=== PATIENT | female | born 1955 | race Caucasian/White ===

== ENCOUNTER 2019-10-22 13:10 | Outpatient (CLI) | payer MEDICARE, SELFPAY | END 2019-10-22 13:11 | disposition home or self-care (01) | LOC: WOUND 13:18 | PROVIDERS: Family Provider Family Medicine; Visit Provider Emergency Medicine | DX: L98.491 Non-pressure chronic ulcer of skin of other sites limited to breakdown of skin (principal) | CPT/HCPCS: 11042; 11045; 87070; 87077; 87176; 87186; 87205; G0463 ==

== ENCOUNTER → 2019-10-26 15:47 | Outpatient (BNVA) | payer MEDICARE, SELFPAY | PROVIDERS: Family Provider Family Medicine; Referring Provider Emergency Medicine; Visit Provider Dermatology | DX: D48.9 Neoplasm of uncertain behavior, unspecified (principal); L08.1 Erythrasma | CPT/HCPCS: 99203; 99204 ==

== ENCOUNTER → 2019-11-05 08:53 | Outpatient (BNVA) | payer MEDICARE, SELFPAY | PROVIDERS: Family Provider Family Medicine; Visit Provider Dermatology | DX: D48.9 Neoplasm of uncertain behavior, unspecified (principal); L08.1 Erythrasma | CPT/HCPCS: 99213 ==

== ENCOUNTER → 2019-12-03 09:03 | Outpatient (BNVA) | payer MEDICARE, SELFPAY | PROVIDERS: Family Provider Family Medicine; Visit Provider Dermatology | DX: L08.1 Erythrasma (principal); R21 Rash and other nonspecific skin eruption | CPT/HCPCS: 11104; 88304; 99213 ==

== ENCOUNTER → 2019-12-15 10:26 | Outpatient (BNVA) | payer MEDICARE, SELFPAY | PROVIDERS: Family Provider Family Medicine; Visit Provider Dermatology | DX: L57.0 Actinic keratosis (principal); L24.9 Irritant contact dermatitis, unspecified cause | CPT/HCPCS: 17000; 99213 ==

== ENCOUNTER 2020-04-13 10:42 | Outpatient (CLI) | payer MEDICARE, SELFPAY ==
--- NOTE | 2020-04-13 10:52 | MM_ITS ---
WS: [id number] BILATERAL SCREENING DIGITAL MAMMOGRAM WITH CAD HISTORY: SCREENING COMPARISON: 05/11/2016 and 04/24/2016 Bilateral CC and MLO views submitted. Computer aided detection analyzed. Breast composition: There are scattered areas of fibroglandular density. No suspicious masses, microc alcifications or architectural distortion. Benign calcifications in each breast. MM/[place] [id number] IMPRESSION: BI-RADS: 2-Benign FOLLOW UP: 1 Year Follow-up
== END 2020-04-13 10:43 | disposition home or self-care (01) ==
LOC: RADSHAW 10:51
PROVIDERS: PCP Family Medicine; Visit Provider Family Medicine
DX: Z12.31 Encounter for screening mammogram for malignant neoplasm of breast (principal)
CPT/HCPCS: 77067

== ENCOUNTER 2021-04-17 13:22 | Outpatient (CLI) | payer SELFPAY ==
[2021-04-17 13:41] VITALS: BMI 46.4
[2021-04-17 15:25] VITALS: BP 161/79; PULSE 74; RESP 20; TEMP 36.2; O2SAT 96
== END 2021-04-17 13:23 | disposition home or self-care (01) ==
PROVIDERS: PCP Family Medicine; Visit Provider Nurse Practitioner Family
DX: U07.1 COVID-19 (principal)
CPT/HCPCS: 96365

== ENCOUNTER 2021-07-26 13:48 | Outpatient (CLI) | payer MEDICARE, SELFPAY ==
--- NOTE | 2021-07-26 14:01 | MM_ITS ---
WS: [id number] BILATERAL 3D TOMOSYNTHESIS DIGITAL SCREENING MAMMOGRAPHY WITH CAD CLINICAL INFORMATION: SCREENING HISTORY: Screening mammogram. No current complaints. COMPARISON: April 13, 2020 TECHNIQUE: Bilateral CC and MLO views. FINDINGS: Scattered fibroglandular densities bilaterally. Vascular calcification. Stable intramammary lymph nod e RIGHT breast. Two small ovoid nodules inner LEFT breast measuring 4 to 5 mm new or more prominent c ompared to previous. These may represent small intramammary lymph nodes but indeterminant. Recommend spot compression views and ultrasound for further evaluation. RIGHT breast is unremarkable and unchanged. MM/[place] [id number] IMPRESSION: BI-RADS: 0-Incomplete: Need additional imaging evaluation FOLLOW UP: Need Additional Imaging Recommend LEFT breast spot compression diagnostic mammography and ultrasound.
--- NOTE | 2021-07-26 14:01 | XR_ITS ---
WS: [id number] DEXA (DUAL ENERGY X-RAY ABSORPTIOMETRY) Bone mineral density was performed using a Crew machine. HISTORY: POSTMENOPAUSAL COMPARISON: None available. Lumbar spine BMD (L1-L4): 1.386 g/cm2 T score: 1.7 Z score: 2.2 Total hip BMD: Left: 1.105 g/cm2. T score: 0.8 Z score: 1.3 Right: 1.113 g/cm2. T score: 0.8 Z score: 1.4 10 year probability of a major osteoporotic fracture is 9.4%. XR/XR DEXA axial skeleton* [id number] IMPRESSION: NORMAL BONE MINERAL DENSITY based upon the WHO classification for females.
== END 2021-07-26 13:49 | disposition home or self-care (01) ==
LOC: RAD 13:49
PROVIDERS: PCP Family Medicine; Visit Provider Nurse Practitioner
DX: Z12.31 Encounter for screening mammogram for malignant neoplasm of breast (principal); Z78.0 Asymptomatic menopausal state; Z13.820 Encounter for screening for osteoporosis
CPT/HCPCS: 77063; 77067; 77080

== ENCOUNTER 2021-08-22 08:48 | Outpatient (CLI) | payer MEDICARE, SELFPAY ==
--- NOTE | 2021-08-22 08:52 | MM_ITS ---
WS: [id number] LEFT 3D TOMOSYNTHESIS DIGITAL MAMMOGRAPHY WITH CAD CLINICAL INFORMATION: OVOID NODULE LT BREAST COMPARISON: July 26, 2021 TECHNIQUE: 4 views of the left breast were obtained. FINDINGS: Scattered fibroglandular densities of the left breast. Two small ovoid nodules inner LEFT breast britney uring 4 to 5 mm stable compared to previous. Ultrasound is pending. ULTRASOUND BREAST LEFT TECHNIQUE: Ultrasound left breast focused area of concern. CLINICAL INFORMATION: OVOID NODULE LT BREAST COMPARISON: None. FINDINGS: Ultrasound LEFT breast at the 10 and 11:00 position 2 to 4 cm from the nipple. Tiny slightly complex cyst at the 11:00 position 2 cm from the nipple measuring 2 x 3 mm. Additional slightly lobulated com plex cyst with a single septation at the 10:00 position measuring 5.1 x 3.4 x 6.0 mm. Findings have a benign appearance. No suspicious lesions to target for biopsy. MM/[place] [id number] IMPRESSION: BI-RADS: 2-Benign FOLLOW UP: 1 Year Follow-up Recommend return to annual screening mammography.
== END 2021-08-22 08:49 | disposition home or self-care (01) ==
LOC: RAD 08:50
PROVIDERS: Family Provider Family Medicine; Visit Provider Family Medicine
DX: N63.20 Unspecified lump in the left breast, unspecified quadrant (principal)
CPT/HCPCS: 76642; 77061

== ENCOUNTER 2022-03-15 21:35 | Inpatient (IN) | payer MEDICARE, SELFPAY ==
[2022-03-15 21:35] VITALS: BP 97/55; PULSE 111; RESP 18; TEMP 39.5; O2SAT 97; BMI 44.2
--- NOTE | 2022-03-15 21:38 | CTR_ITS ---
PROCEDURE INFORMATION: Exam: CT Cervical Spine Without Contrast Exam date and time: 03/15/2022 9:51 PM Age: 66 years old Clinical indication: Injury or trauma; Fall; Blunt trauma; Patient HX: Per EMS patient fell at home at 1300 with headstrike. Lethargic with fever. History of lymphoma. TECHNIQUE: Imaging protocol: Computed tomography of the cervical spine without contrast. Radiation optimization: All CT scans at this facility use at least one of these dose optimization techniques: automated exposure control; mA and/or kV adjustment per patient size (includes targeted exams where dose is matched to clinical indication); or iterative reconstruction. COMPARISON: CT head wo con* [id number] 03/15/2022 9:48 PM RADIATION DOSE METRICS: Total DLP (mGy-cm): 211.17 FINDINGS: Bones/joints: No fracture is identified. There is narrowing of the C5-C6 and C6-C7 disc spaces with small anterior and posterior osteophytes. There are hypertrophic degenerative changes in facet joints bilaterally at multiple levels. Lungs: Lung apices are normal. Soft tissues: Prevertebral soft tissues are unremarkable. CT/CT cervical spin wo con* [id number] IMPRESSION: 1. Degenerative changes. 2. No fracture is identified.
--- NOTE | 2022-03-15 21:38 | CTR_ITS ---
PROCEDURE INFORMATION: Exam: CT Head Without Contrast Exam date and time: 03/15/2022 9:48 PM Age: 66 years old Clinical indication: Injury or trauma; Fall; Blunt trauma (contusions or hematomas); Patient HX: Per EMS patient fell at home at 1300 with headstrike. Lethargic with fever. History of lymphoma. TECHNIQUE: Imaging protocol: Computed tomography of the head without contrast. Radiation optimization: All CT scans at this facility use at least one of these dose optimization techniques: automated exposure control; mA and/or kV adjustment per patient size (includes targeted exams where dose is matched to clinical indication); or iterative reconstruction. COMPARISON: No relevant prior studies available. RADIATION DOSE METRICS: Total DLP (mGy-cm): 1123.98 FINDINGS: Limitations: Study is slightly limited by patient motion. Brain: There is mild cortical atrophy. Low-density changes in the white matter are consistent with nonspecific small vessel chronic ischemic change. There is no intracranial mass, hemorrhage or edema. Cerebral ventricles: No ventriculomegaly. Paranasal sinuses: There is a mucous retention cyst in the right maxillary antrum. Mastoid air cells: Visualized mastoid air cells are well aerated. Bones/joints: Unremarkable. No acute fracture. Soft tissues: Unremarkable. CT/CT head wo con* [id number] IMPRESSION: No acute intracranial finding.
--- NOTE | 2022-03-15 21:38 | XRR_ITS ---
PROCEDURE INFORMATION: Exam: XR Chest Exam date and time: 03/15/2022 9:43 PM Age: 66 years old Clinical indication: Fever TECHNIQUE: Imaging protocol: Radiologic exam of the chest. Views: 1 view. COMPARISON: No relevant prior studies available. FINDINGS: Limitations: The study is made with less than full inspiration. Lungs: There are mild atelectatic changes at the lung bases. There is no pulmonary venous congestion. Pleural spaces: Unremarkable. No pleural effusion. No pneumothorax. Heart/Mediastinum: Heart is within normal limits of size. Bones/joints: Unremarkable. XR/XR chest 1V portable [id number] IMPRESSION: Mild basilar atelectasis.
--- NOTE | 2022-03-15 21:54 | ED_ITS ---
HPI - Altered Mental Status General: Chief Complaint: Altered Mental Status Stated Complaint: AMS Time Seen by Provider: 03/15/22 21:36 Source: EMS Mode of arrival: EMS Limitations: altered mental status History of Present Illness: 66-year-old female who had a fall earlier today believe around 1-2 o'clock patient was seen by friends then was normal, checked on her later and she is altered patient here is altered she able to tell me her name but is quite confused is not able answer any questions she is having weakness as well. Patient was febrile with EMS to 103 Review of Systems General: Reports: ROS unobtainable due to mental status Const: Reports: fever(s) PFSH ED PFSH: Medical History Arthritis Diabetes History of nonmelanoma skin cancer Hodgkin lymphoma Lymphoma Thyroid disease Surgical History H/O: hysterectomy Family History Mother Diabetes Other Cancer Social History Smoking and tobacco status: former smoker Alcohol intake: never History of recent travel: No Physical Exam Const: COMMON NORMALS: alert EXAM LIMITATIONS: altered mental status GENERAL APPEARANCE: ill appearing HENMT: COMMON NORMALS: normocephalic and atraumatic HEAD & SCALP: normocephalic and atraumatic Eye: COMMON NORMALS: Equal, round and reactive pupils present and conjunctivae normal CONJUNCTIVA: Yes conjunctivae normal PUPIL: Yes Equal, round and reactive pupils present Neck/C-Spine: COMMON NORMALS: full ROM and supple Chest: COMMONS NORMALS: normal inspection of the chest Resp: EFFORT & INSPECTION: No tachypneic, No respiratory distress and No labored AUSCULTATION: rales Cardio: COMMON NORMALS: regular rate and regular rhythm RATE: regular rate RHYTHM: regular rhythm GI: COMMON NORMALS: Normal to inspection, nondistended, normoactive bowel sounds present and non-tender Back/Pelvis: COMMON NORMALS: thoracic and lumbar spine normal to inspection and no thoracic nor lumbar tenderness Extremity: COMMON NORMALS: normal to inspection Neuro: SENSORIUM/ORIENTATION: Yes alert OTHER: Patient is able to tell me her name she is quite confused and weak Psych: COMMON NORMALS: negative for mental status grossly normal Skin: COMMON NORMALS: no rashes or lesions noted GENERAL SKIN EXAM: no rashes or lesions noted Course Vital Signs: Vital signs: Vital Signs Temperature 103.1 F H 03/15/22 21:35 Pulse Rate 111 H 03/15/22 21:35 Respiratory Rate 18 03/15/22 21:35 Blood Pressure 97/55 03/15/22 21:35 Pulse Oximetry 97 03/15/22 21:35 Oxygen Delivery Me thod 03/15/22 21:35 MDM - Altered Mental Status Medical Decision Making Patient presents originally with fever and altered male status her confusions i mproved now that her fever is improved she able answer my question appropriately she does have a urinary tract infection along with leukocytosis likely causing this fever will start on IV antibiotics I spoke to the hospitalist and will admit. Lab Data 03/15/22 22:07 03/15/22 22:07 Radiology Impressions Cervical Spine CT 03/15/22 21:38 IMPRESSION: 1. Degenerative changes. 2. No fracture is identified. Chest X-Ray 03/15/22 21:38 IMPRESSION: Mild basilar atelectasis. Head CT 03/15/22 21:38 IMPRESSION: No acute intracranial finding. Laboratory Results WBC 24.5 10^3/uL (4.0-10.0) H 03/15/22 22:07 RBC 4.29 10^6/uL (4.1-5.3) 03/15/22 22:07 Hgb 11.0 g/dL (11.5-15.3) L 03/15/22 22:07 Hct 36.1 % (37.0-47.0) L 03/15/22 22:07 MCV 84.1 fl (81-99) 03/15/22 22:07 MCH 25.6 pg (28.0-34.0) L 03/15/22 22:07 MCHC 30.5 g/dL (30.0-36.0) 03/15/22 22:07 RDW 15.3 % (12.1-15.1) H 03/15/22 22:07 Plt Count 312 10^3/cmm (130-400) 03/15/22 22:07 MPV 11.9 fL (7.4-10.4) H 03/15/22 22:07 Neut % (Auto) 58.6 % 03/15/22 22:07 Lymph % (Auto) 8.5 % 03/15/22 22:07 [place] % (Auto) 32.0 % 03/15/22 22:07 Eos % (Auto) 0.0 % 03/15/22 22:07 Baso % (Auto) 0.1 % 03/15/22 22:07 Neut # (Auto) 14.33 10^3/uL (1.8-7.7) H 03/15/22 22:07 Lymph # (Auto) 2.1 10^3/uL (0.8-4.8) 03/15/22 22:07 [place] # (Auto) 7.8 10^3/uL (0.2-0.9) H 03/15/22 22:07 Eos # (Auto) 0.0 10^3/uL (0.0-0.8) 03/15/22 22:07 Baso # (Auto) 0.0 10^3/uL (0.0-0.1) 03/15/22 22:07 Nucleated RBC % (auto) 0 % 03/15/22 22:07 Nucleated RBCs # 0.0 /100WBC 03/15/22 22:07 PT 15.60 SECONDS (12.1-14.9) H 03/15/22 22:07 INR 1.21 (0.8-1.2) H 03/15/22 22:07 Sodium 139 mmol/L (136-145) 03/15/22 22:07 Potassium 4.5 mmol/L (3.5-5.1) 03/15/22 22:07 Chloride 102 mmol/L (98-107) 03/15/22 22:07 Carbon Dioxide 22 mmol/L (22-29) 03/15/22 22:07 Anion Gap 19.5 (5-19) H 03/15/22 22:07 BUN 33 mg/dL (8-23) H 03/15/22 22:07 Creatinine 2.1 mg/dL (0.5-0.9) H 03/15/22 22:07 GFR Calculation 23.4 mL/min (90-130) L 03/15/22 22:07 Glucose 347 mg/dL (65-115) H 03/15/22 22:07 Calculated Osmolality 309 mOsm/kg (285-295) H 03/15/22 22:07 Lactate 2.2 mmol/L (0.5-2.2) 03/15/22 22:07 Calcium 9.1 mg/dL (8.5-10.5) 03/15/22 22:07 Total Bilirubin 0.5 mg/dL (0.15-1.2) 03/15/22 22:07 AST 12 U/L (0-32) 03/15/22 22:07 ALT < 5 U/L (0-33) 03/15/22 22:07 Alkaline Phosphatase 87 U/L (35-105) 03/15/22 22:07 Total Protein 7.9 g/dL (6.6-8.7) 03/15/22 22:07 Albumin 3.5 g/dL (3.5-5.2) 03/15/22 22:07 Globulin 4.4 g/dL (1.3-4.6) 03/15/22 22:07 Lipase 19 U/L (13-60) 03/15/22 22:07 Urine Color Yellow (Yellow) 03/15/22 23:55 Urine Appearance Cloudy (CLEAR) A 03/15/22 23:55 Urine pH 5 (5-7) 03/15/22 23:55 Ur Specific [place] 1.015 (1.005-1.030) 03/15/22 23:55 Urine Protein 1+ (Negative) H 03/15/22 23:55 Urine Glucose (UA) Norm (Normal) 03/15/22 23:55 Urine Ketones Negative (Negative) 03/15/22 23:55 Urine Blood 3+ (Negative) H 03/15/22 23:55 Urine Nitrate Negative (Negative) 03/15/22 23:55 Urine Bilirubin Neg (Negative) 03/15/22 23:55 Urine Urobilinogen Norm mg/dL (Negative) 03/15/22 23:55 Ur Leukocyte Esterase 2+ (Negative) H 03/15/22 23:55 Urine RBC 0-4 /hpf (0-2) H 03/15/22 23:55 Urine WBC Too numerous to cnt /hpf (0-5) H 03/15/22 23:55 Ur Squamous Epith Cells 0-4 /hpf (0-5) H 03/15/22 23:55 Amorphous Sediment Not Reportable 03/15/22 23:55 Urine Bacteria 4+ /hpf (NONE) H 03/15/22 23:55 Influenza Type A Ag negative (Negative) 03/15/22 22:44 Influenza Type B Ag negative (Negative) 03/15/22 22:44 SARS-CoV-2 Ag (Rapid) negative (Negative) 03/15/22 22:44 Discharge Plan Discharge Patient Disposition: Admitted As Inpatient Clinical Impression: Altered mental status, Acute cystitis Condition: Stable Prescriptions: No Action hydrocortisone 2.5 % cream 1 applic TOPICAL BID PRN (Reason: allergic reaction) Qty: 453.6 0RF Rx Instructions: Apply twice daily to affected area and abdominal fold no more than 2 weeks/month levothyroxine [Synthroid] 88 mcg tablet 88 mcg PO DAILY lisinopril 5 mg tablet 5 mg PO DAILY PRN Januvia 100 mg tablet 100 mg PO DAILY ibuprofen 200 mg capsule 200 mg PO Q6H PRN aspirin [Adult Aspirin Regimen] 81 mg tablet,delayed release (DR/EC) 81 mg PO DAILY erythromycin 250 mg tablet 250 mg PO Q6H Qty: 40 0RF glyburide 2.5 mg tablet 2.5 mg PO DAILY Referrals: Celia Louis MD [Primary Care Provider] - Coding Level of Care Code ED Chief Station Engineer for Chg Fwd Exam Comprehensive
[2022-03-15 22:17] LABS: Basophils % 0.1 %; Hematocrit 36.1 % (37.0-47.0); Lymphocytes # 2.1 10^3/uL (0.8-4.8); Lymphocytes % 8.5 %; Mean Corpuscular HGB Conc 30.5 g/dL (30.0-36.0); Mean Corpuscular Hemoglobin 25.6 pg (28.0-34.0); Mean Corpuscular Volume 84.1 fl (81-99); Mean Platelet Volume 11.9 fL (7.4-10.4); Monocytes # 7.8 10^3/uL (0.2-0.9); Neutrophils # 14.33 10^3/uL (1.8-7.7); Neutrophils % 58.6 %; Nucleated Red Blood Cells % 0 %; Platelet Count 312 10^3/cmm (130-400); Red Blood Count 4.29 10^6/uL (4.1-5.3); Red Cell Distribution Width 15.3 % (12.1-15.1); White Blood Count 24.5 10^3/uL (4.0-10.0)
[2022-03-15 22:28] LABS: INR 1.21 (0.8-1.2)
[2022-03-15] MEDS: cefTRIAXone 1,000 MG in sodium chloride 0.9% (plus) 50 ML 100 MG IV (22:35)
[2022-03-15 22:38] LABS: Lactate (Lactic Acid level) 2.2 mmol/L (0.5-2.2)
[2022-03-15] MEDS: acetaminophen 325 mg Tablet 650 MG PO (22:41)
[2022-03-15 22:42] LABS: Alanine Aminotransferase < 5 U/L (0-33); Albumin Level 3.5 g/dL (3.5-5.2); Alkaline Phosphatase 87 U/L (35-105); Anion Gap 19.5 (5-19); Aspartate Amino Transferase 12 U/L (0-32); Blood Urea Nitrogen 33 mg/dL (8-23); Calcium 9.1 mg/dL (8.5-10.5); Carbon Dioxide 22 mmol/L (22-29); Chloride 102 mmol/L (98-107); Globulin 4.4 g/dL (1.3-4.6); Glomerular Filtration Rate 23.4 mL/min (90-130); Glucose 347 mg/dL (65-115); Lipase 19 U/L (13-60); Osmolality Calculated 309 mOsm/kg (285-295); Potassium 4.5 mmol/L (3.5-5.1); Sodium 139 mmol/L (136-145); Total Bilirubin 0.5 mg/dL (0.15-1.2); Total Protein 7.9 g/dL (6.6-8.7)
[2022-03-15] MEDS: sodium chloride 0.9% 1,000 ML 999 ML IV ×2 (22:47→23:52)
[2022-03-15 23:10] LABS: Influenza A by IFA negative (Negative); Influenza B by IFA negative (Negative); SARS Covid-2 Antigen negative (Negative)
[2022-03-15] MEDS: azithromycin 500 MG in sodium chloride 0.9% 250 ML 250 MG IV (23:52)
[2022-03-16] VITALS (8 sets, daily range): BP systolic 103–136; BP diastolic 47–65; PULSE 81–117; RESP 15–21; TEMP 36.9–39.6; O2SAT 90–98
[2022-03-16 00:11] LABS: Add Urine Culture? Yes; Add Urine Microscopic? YES; Bacteria Urine 4+ /hpf; Bilirubin Urine Neg (Negative); Blood Urine 3+ (Negative); Glucose Urine UA Norm (Normal); Ketones Urine Negative (Negative); Leukocyte Esterase Urine 2+ (Negative); Nitrate Urine Negative (Negative); Protein Urine 1+ (Negative); RBC Urine 0-4 /hpf (0-2); Specific Gravity, Urine 1.015 (1.005-1.030); Squamous Epithelial Cell Urine 0-4 /hpf (0-5); Urine Appearance Cloudy (CLEAR); Urine Color Yellow (Yellow); Urobilinogen Urine Norm (Negative); WBC Urine TOO NUMEROUS TO CNT /hpf (0-5); pH Urine 5 (5-7)
--- NOTE | 2022-03-16 02:26 | P.HP_ITS ---
Providers/Chief Complaint Admitting Physician: Anahi Gracia MD Primary Care Provider: Celia Louis MD Chief Complaint: AMS History of Present Illness Macey Brush is a 66 year old female who carries history of lymphoma, arthritis, lives alone presented with chief complaint of confusion and fever. Patient fell today around [address] due to snow. She was brought to the hospital her family deemed her stable. When family checked on her around 6 PM she was not picking up the phone call, her sister went in person to see her, Ms. Brush was very lethargic fatigued and confused. She was laying on a couch. As per the patient she was suffering from viral illness for last 3 days he experienced 1 episode of emesis. He has been experiencing dysuria for urinary f requency. In the ER she has been diagnosed with sepsis related to UTI, her daughter who is in [place] is very concerned if lymphoma has returned I requested CT chest abdomen pelvis she had received 2 L bolus along blood cultures and antibiotics, her septic bolus would require at least 3 L, given additional liter of fluid, lactic acid is high She is getting acidotic I have given her 1 amp of bicarb She is not hypotensive Sister at the bedside Patient is full code, Review of Systems Const: Reports: fever(s) and chills Eyes: Denies: change in vision ENMT: Denies: throat pain Card: Denies: chest pain Resp: Reports: dyspnea GI: Reports: nausea : Reports: flank pain and urinary frequency Musc: Denies: neck pain Skin/Breast: Denies: rash Neuro: Denies: headache(s) Psych: Reports: sleeping more Endo: Denies: polyuria Nito/Lymph: Denies: easy bruising All/Imm: Denies: urticaria Medications/Allergies Home Medications Medication Instructions Recorded Confirmed Last Taken Type aspirin 81 mg tablet,delayed 81 mg PO DAILY 10/26/19 09/05/20 Unknown History release (Adult Aspirin Regimen) erythromycin 250 mg tablet 250 mg PO Q6H #40 tabs 10/26/19 09/05/20 Unknown Rx ibuprofen 200 mg capsule 200 mg PO Q6H PRN 10/26/19 09/05/20 Unknown History levothyroxine 88 mcg tablet 88 mcg PO DAILY 10/26/19 09/05/20 Unknown History (Synthroid) lisinopril 5 mg tablet 5 mg PO DAILY PRN 10/26/19 09/05/20 Unknown History sitagliptin 100 mg tablet (Januvia) 100 mg PO DAILY 10/26/19 09/05/20 Unknown History hydrocortisone 2.5 % topical cream 1 applic topical BID PRN allergic 12/15/19 09/05/20 Unknown Rx reaction #453.6 grams glyburide 2.5 mg tablet 2.5 mg PO DAILY 09/05/20 09/05/20 Unknown History Allergies Allergy/AdvReac Type Severity Reaction Status Date / Time adhesive tape Allergy rash Verified 03/15/22 21:42 ciprofloxacin [From Cipro] Allergy peeling of Verified 03/15/22 21:42 hands and feet latex Allergy ALGY-Rash Verified 03/15/22 21:42 sulfamethoxazole Allergy doesn't Verified 03/15/22 21:42 [From Bactrim] work trimethoprim [From Bactrim] Allergy doesn't Verified 03/15/22 21:42 work tegraderm Allergy rash Uncoded 03/15/22 21:42 PFSH Acute PFSH: Medical History Arthritis Diabetes History of nonmelanoma skin cancer Hodgkin lymphoma Lymphoma Thyroid disease Surgical History H/O: hysterectomy Family History Mother Diabetes Other Cancer Social History Smoking and tobacco status: former smoker Alcohol intake: never History of recent travel: No Vitals/I&O/Wt Last Vital Signs Temp 99.4 F 03/16/22 00:43 Pulse 92 03/16/22 00:43 Resp 16 03/16/22 00:43 BP 128/47 03/16/22 00:43 Pulse Ox 98 03/16/22 00:43 O2 Del Method 03/16/22 02:03 03/15/22 03/15/22 03/16/22 14:59 22:59 06:59 Intake Total 2300 / 2300 Balance 2300 / 2300 Weight last 48 hrs Weight 113.398 kg Physical Exam Narrative: Morbidly obese female Currently laying supine Very fatigued Oriented to time place and person S1, S2 sinus tachycardia Abdomen soft Lower extremity no edema Dry mucous membranes EOMI, PERRLA Nonfocal neuro exam Sister is at the bedside Patient seems very drowsy Sepsis: Is patient septic: Yes Focused sepsis exam performed: Yes Focused sepsis exam: Good capillary refill No skin mottling Signs of dehydration present Metabolic encephalopathy improving Data 03/15/22 22:07 03/15/22 22:07 Micro: Microbiology 03/15/22 22:05 Blood Culture - Preliminary Blood SPECIMEN COLLECTED 03/15/22 22:05 Blood Culture - Preliminary Blood SPECIMEN COLLECTED A&P Assessment and plan (1) Altered mental status: (2) Acute cystitis: (3) Sepsis: (4) Metabolic acidosis: Plan Sepsis related to UTI Rule out pyelonephritis Requested CT abdomen pelvis and chest daughter is concerned that probably her lymphoma has returned that is causing her confusion and worsening of leukocytosis Sepsis criteria met with fever, tachypnea tachycardia high lactic acid, endorgan damage I have given her 3 L of IV fluid as septic bolus Blood cultures taken urine cultures taken Lactic acid is being trended Metabolic encephalopathy related to sepsis and UTI Currently patient is awake and alert, AOx4 GCS 15 Nonfocal neuro exam High anion gap metabolic acidosis due to lactic acidemia I have given a 1 amp of bicarb, started on p.o. bicarb regimen In case of further worsening she might need bicarb drip and ICU transfer History of hypertension: I am holding her lisinopril for now DENNISE related to sepsis rule out obstructive uropathy, pyelonephritis Requested CT scan of abdomen pelvis Consistent carb diet for type 2 diabetes Sliding scale Hypothyroidism continue levothyroxine Full code DVT prophylaxis Heparin We will request records for her lymphoma treatment Attestations Medical Necessity Statement*: Anticipating more than 2 midnights for management of sepsis Time Spent in Patient Care: 40 Coding Level of Care Code Acute Contract Administrative Assistant for g Fwd Diagnoses Altered mental status R41.82 Acute cystitis N30.00 Sepsis A41.9 Metabolic acidosis E87.20
[2022-03-16] MEDS: ondansetron 2 mg/ML SDV 2 mL 4 MG IVP ×2 (02:43→17:37)
[2022-03-16] MEDS: lactated ringers 500 ML 999 ML IV (02:44)
[2022-03-16] MEDS: piperacillin-tazobactam 3.375 GM in sodium chloride 0.9% (plus) 50 ML IV ×2 (02:46→12:17)
[2022-03-16] MEDS: sodium chloride 0.9% 1,000 ML 75 ML IV (02:46)
[2022-03-16] MEDS: heparin 5,000 unit/mL INJ 1 mL 5000 UNIT SUBCUT ×3 (02:47→17:38)
[2022-03-16 03:42] LABS: Basophils # 0.1 10^3/uL (0.0-0.1); Basophils % 0.2 %; Hematocrit 32.4 % (37.0-47.0); Hemoglobin 9.6 g/dL (11.5-15.3); Lymphocytes # 1.9 10^3/uL (0.8-4.8); Lymphocytes % 8.1 %; Mean Corpuscular HGB Conc 29.6 g/dL (30.0-36.0); Mean Corpuscular Hemoglobin 25.5 pg (28.0-34.0); Mean Corpuscular Volume 85.9 fl (81-99); Mean Platelet Volume 12.5 fL (7.4-10.4); Monocytes # 3.7 10^3/uL (0.2-0.9); Monocytes % 16.1 %; Neutrophils # 17.13 10^3/uL (1.8-7.7); Nucleated Red Blood Cells % 0 %; Platelet Count 253 10^3/cmm (130-400); Red Blood Count 3.77 10^6/uL (4.1-5.3); Red Cell Distribution Width 15.7 % (12.1-15.1); White Blood Count 23.2 10^3/uL (4.0-10.0)
[2022-03-16 03:45] LABS: D Dimer 3.21 ug/mIFEU (0-0.59)
[2022-03-16 03:57] LABS: Anion Gap 20.7 (5-19); Blood Urea Nitrogen 31 mg/dL (8-23); C Reactive Protein 207.3 mg/L (0.0-4.9); Calcium 8.2 mg/dL (8.5-10.5); Carbon Dioxide 16 mmol/L (22-29); Chloride 105 mmol/L (98-107); Glomerular Filtration Rate 22.2 mL/min (90-130); Glucose 325 mg/dL (65-115); Magnesium 1.3 mg/dL (1.7-2.3); Osmolality Calculated 305 mOsm/kg (285-295); Potassium 3.7 mmol/L (3.5-5.1); Sodium 138 mmol/L (136-145)
[2022-03-16] MEDS: acetaminophen 500 mg Tablet PO ×2 (04:00→12:17)
[2022-03-16 04:02] LABS: Procalcitonin 10.25 ng/mL (0-0.5)
[2022-03-16] MEDS: sodium chloride 0.9% 1,000 ML 999 ML IV (05:07)
[2022-03-16] MEDS: sodium bicarbonate 8.4% 1 mEq/mL 50mL Syr 100 MEQ IVP (05:30)
--- NOTE | 2022-03-16 05:55 | CTR_ITS ---
PROCEDURE INFORMATION: Exam: CT Chest Without Contrast; Diagnostic Exam date and time: 03/16/2022 6:09 AM Age: 66 years old Clinical indication: Abdominal pain; Generalized; Chest pressure; Additional info: UTI TECHNIQUE: Imaging protocol: Diagnostic computed tomography of the chest without contrast. Radiation optimization: All CT scans at this facility use at least one of these dose optimization techniques: automated exposure control; mA and/or kV adjustment per patient size (includes targeted exams where dose is matched to clinical indication); or iterative reconstruction. COMPARISON: CR (CHEST, ) 03/15/2022 9:43 PM RADIATION DOSE METRICS: Total DLP (mGy-cm): 1607.6 FINDINGS: Lungs: There are multifocal, randomly distributed, non rounded ground-glass opacities; non-specific and likely infectious or inflammatory. Pleural spaces: Unremarkable. No pneumothorax. No pleural effusion. Heart: The heart is normal in size.There are no pericardial fluid collections. There is heavy mitral annulus calcification. Coronary arteries: There is mild atherosclerotic calcification of the coronary arteries. Esophagus: No focal wall thickening. Mediastinal space: There are no enlarged mediastinal lymph nodes or masses. Lymph nodes: No enlarged hilar lymph nodes. Vasculature: There is no thoracic aortic aneurysm. There is mild scattered atherosclerotic calcification throughout the thoracic aorta. Liver: Normal in size and homogeneous density. Bones/joints: There is diffuse osseous demineralization. No acute fracture. Soft tissues: Unremarkable. PROCEDURE INFORMATION: Exam: CT Abdomen And Pelvis Without Contrast Exam date and time: 03/16/2022 6:09 AM Age: 66 years old Clinical indication: Abdominal pain; Generalized; Chest pressure; Additional info: UTI TECHNIQUE: Imaging protocol: Computed tomography of the abdomen and pelvis without contrast. Radiation optimization: All CT scans at this facility use at least one of these dose optimization techniques: automated exposure control; mA and/or kV adjustment per patient size (includes targeted exams where dose is matched to clinical indication); or iterative reconstruction. COMPARISON: CR (CHEST, ) 03/15/2022 9:43 PM RADIATION DOSE METRICS: Total DLP (mGy-cm): 1607.6 FINDINGS: Lungs: There are diffuse, nonspecific ground-glass opacities. Liver: The liver is enlarged, measuring 19.1 cm in length at the mid axillary line. There is a Fernando's lobe of the liver, anatomic variant.There is diffuse hypodensity throughout the liver consistent with hepatic steatosis. Gallbladder and bile ducts: There has been a cholecystectomy. There is no evidence of biliary ductal dilation. Pancreas: Normal size and homogeneous density. No ductal dilation. Spleen: Mildly enlarged, measuring 11.4 cm in length and 14.8 cm in anteroposterior dimension. Adrenal glands: Normal. No mass. Kidneys and ureters: There is bilateral mild hydronephrosis and ureteral dilatation without evidence of renal or ureteral calculi. There is a vascular calcification at the left renal hilum. There is perirenal and periureteral stranding as well as stranding around the urinary bladder. Stomach and bowel: There is no evidence of small bowel or colonic obstruction. Appendix: No evidence of appendicitis. Intraperitoneal space: There are multiple diffuse intraperitoneal mesenteric lymph nodes and a mass of matted nodes and hazy borders in the mid mesentery, likely neoplastic, consistent with patient's known history of lymphoma. This mass measures 5.9 x 2.8 x 11.4 cm (T, AP, CC). This mass is best visualized on axial series 5, image 58 and coronal series 10, image 20. Vasculature: No abdominal aortic aneurysm. Lymph nodes: Multiple nonenlarged and mildly prominent retroperitoneal and mesenteric lymph nodes are present. There is a mass of matted lymph nodes in the mid peritoneal space. Urinary bladder: There is focal thickening of the bladder wall, predominantly in the area of the trigone that is concerning for neoplasm. Given the patient's history, this may represent lymphomatous infiltration or less likely bladder carcinoma. Reproductive: Unremarkable as visualized. Bones/joints: No acute fracture. No evidence of bone destruction. Soft tissues: Unremarkable. CT/[place] [id number] IMPRESSION: These pulmonary imaging features can be seen with (COVID-19) pneumonia, though are nonspecific and can occur with a variety of infectious and noninfectious processes, including Covid-19 infection. ([id number]) IMPRESSION: 1. Mild bilateral hydronephrosis and ureteral dilatation without evidence of obstructive ureteral calculi. Periureteral inflammatory stranding suggests infection. Pyelonephritis may present this picture. 2. Thickening of the bladder trigone suggesting neoplastic infiltration, likely lymphomatous, less likely bladder carcinoma . 3. Multiple mesenteric and retroperitoneal lymph nodes. There is a mass of matted lymph nodes in the mid mesentery with irregular blurry borders consistent with the patient's history of lymphoma. 4. Mild hepatosplenomegaly and hepatic steatosis. THIS REPORT CONTAINS FINDINGS THAT MAY BE CRITICAL TO PATIENT CARE. The findings were verbally communicated via telephone conference with CINTHIA WEBB at 7:01 AM PIE FILLING MIXER on 03/16/2022. The findings were acknowledged and understood.
--- NOTE | 2022-03-16 08:35 | PC.PHAR ---
PT FROM HOME LIVES ALONE- PT UNABLE TO VERIFY DO TO AMS- MEDICATIONS VERIFIED USING EXTERNAL MED LIST LAST FILLED
[2022-03-16 09:44] LABS: Glucose Point of Care 253 mg/dL (70-110)
--- NOTE | 2022-03-16 10:15 | P.PN_ITS ---
Subjective Subjective: History and physical was reviewed in its entirety. I have visited with the patient, and her sister who was present in the room at the time of the visit. Patient reports she feels like she is doing okay, but she has some apparent confusion. She shuts her eyes frequently, trying to sleep. Medications: Reviewed: Yes Vitals/I&O/Wt Last Vital Signs Temp 100.5 F H 03/16/22 08:00 Pulse 92 03/16/22 08:00 Resp 15 03/16/22 08:00 BP 106/65 03/16/22 08:00 Pulse Ox 90 03/16/22 08:00 O2 Del Method 03/16/22 04:03 03/15/22 03/16/22 03/16/22 22:59 06:59 14:59 Intake Total 4596.875 / 4596.875 21.875 / 21.875 Balance 4596.875 / 4596.875 21.875 / 21.875 Weight last 48 hrs Weight 113.398 kg Physical Exam Narrative: General exam is an obese white female, shutting her eyes frequently trying to sleep. She denies any specific pain. Neck supple no lymphadenopathy thyromegaly Cardiovascular borderline tachycardia, no murmur, regular Lungs clear but with diminished breath sounds bilaterally Abdomen is soft obese nontender positive bowel sounds Extremities no cyanosis clubbing or edema, cap refill brisk Skin no rash Neuro no obvious focal deficits. Sepsis: Is patient septic: Yes Focused sepsis exam performed: Yes Date exam was performed: 03/16/22 Time exam was performed: 10:17 Data 03/16/22 02:58 03/16/22 02:58 Micro: Microbiology 03/15/22 22:05 Blood Culture - Preliminary Blood SPECIMEN COLLECTED 03/15/22 22:05 Blood Culture - Preliminary Blood SPECIMEN COLLECTED A&P Assessment and plan (1) Sepsis: Patient appears to be septic, secondary to UTI Blood cultures and urine cultures have been obtained Continue [facility] currently. This was started on admission. Influenza and COVID antigens were done, and negative It appears she received significant IV fluid for sepsis Currently she is not hypotensive. Fever is still present. (2) Metabolic acidosis: Patient presented with metabolic acidosis, with an anion gap of approximately 20 likely attributed to her sepsis or acute kidney injury. Doubt DKA, but will follow closely to make sure this corrects. Serum ketones were not done but I do not feel compelled to do so at this time. (3) Acute cystitis: Urine cultures been obtained Continue Zosyn CT of abdomen and pelvis demonstrated mild bilateral hydronephrosis without evidence of obstructive calculi. Infection was suggested. Bladder scan to make sure no urinary retention occurring (4) Acute metabolic encephalopathy: Consistent with delirium secondary to acute infection. Sister present in the room reports she does not have any underlying neurologic deficit or confusion. CT head negative (5) Diabetes: Sliding scale insulin Hold oral sulfonylurea (6) Lymphoma: Patient with history of lymphoma, with recurrence in the past and treatment about 8 years ago Enlarged lymph nodes are noted on her CT abdomen pelvis. This will require further outpatient work-up. (7) Acute kidney injury: Follow creatinine closely. Repeat BMP tomorrow Bladder scan to make sure no retention is occurring Hold TEJ inhibitor (8) Hypomagnesemia: Supplement Recheck tomorrow (9) Anemia: Anemia panel Stool Hemoccult Protonix daily Plan Multiple other medical problems as outlined in past medical history Allow natural Heparin for DVT prophylaxis Attestations Medical Necessity Statement*: Needs continued hospitalization for IV antibiotics secondary to sepsis with UTI and associated end organ dysfunction Coding Level of Care Code Acute Leather Polisher for Chg Fwd Diagnoses Sepsis A41.9 Metabolic acidosis E87.20 Acute cystitis N30.00 Acute metabolic encephalopathy G93.41 Diabetes E11.9 Lymphoma C85.90 Acute kidney injury N17.9 Hypomagnesemia E83.42 Anemia D64.9
[2022-03-16 10:48] LABS: Creatine Phosphokinase 52 U/L (26-192)
[2022-03-16 10:51] LABS: Lactate (Lactic Acid level) 2.4 mmol/L (0.5-2.2)
[2022-03-16 11:15] LABS: Ferritin 288 ng/mL (15-150); Iron 12 ug/dL (37-145); Percent Saturation 6.3 % (20-50); Total Iron Binding Capacity 190 mcg/dl; Unsaturated Iron Binding 178 ug/dL (112-347)
[2022-03-16 11:15] LABS: Iron 12 ug/dL (37-145)
[2022-03-16 11:30] LABS: Folate Level 8.5 ng/mL (4.8-37.3)
[2022-03-16 11:30] LABS: Vitamin B12 452 pg/mL (232-1245)
[2022-03-16] MEDS: pantoprazole DR 40 mg Tablet PO (12:17)
[2022-03-16 12:40] LABS: Glucose Point of Care 285 mg/dL (70-110)
[2022-03-16] MEDS: insulin lispro 100 unit/1 mL SUBCUT ×2 (13:50→17:35)
[2022-03-16] MEDS: magnesium sulfate premix 2 GM/50 ML PIGGYBACK IV (14:23)
[2022-03-16] MEDS: meropenem 1,000 MG in sodium chloride 0.9% (plus) 50 ML 100 MG IV (14:23)
[2022-03-16 15:42] LABS: Anion Gap 19.7 (5-19); Blood Urea Nitrogen 34 mg/dL (8-23); Calcium 7.7 mg/dL (8.5-10.5); Carbon Dioxide 17 mmol/L (22-29); Chloride 104 mmol/L (98-107); Glomerular Filtration Rate 17.5 mL/min (90-130); Glucose 282 mg/dL (65-115); Osmolality Calculated 302 mOsm/kg (285-295); Potassium 3.7 mmol/L (3.5-5.1); Sodium 137 mmol/L (136-145)
[2022-03-16 17:12] LABS: Glucose Point of Care 177 mg/dL (70-110)
[2022-03-16] MEDS: sodium chloride 0.9% 1,000 ML 100 ML IV (17:36)
[2022-03-16] MEDS: metoclopramide 5 mg/mL SDV 2 mL 10 MG IVP (21:05)
[2022-03-16] MEDS: morphine 4 mg/mL SDV 1 mL 2 MG IVP (21:05)
[2022-03-16 21:38] LABS: Glucose Point of Care 149 mg/dL (70-110)
[2022-03-17] VITALS (8 sets, daily range): BP systolic 114–141; BP diastolic 56–95; PULSE 75–94; RESP 15–18; TEMP 36.4–38.6; O2SAT 92–99
[2022-03-17] MEDS: meropenem 1,000 MG in sodium chloride 0.9% (plus) 50 ML 100 MG IV ×2 (02:25→14:32)
[2022-03-17] MEDS: heparin 5,000 unit/mL INJ 1 mL 5000 UNIT SUBCUT ×3 (02:26→20:12)
[2022-03-17] MEDS: ondansetron 2 mg/ML SDV 2 mL 4 MG IVP (02:40)
[2022-03-17] MEDS: sodium chloride 0.9% 1,000 ML 100 ML IV ×2 (03:07→14:31)
[2022-03-17] MEDS: morphine 4 mg/mL SDV 1 mL 2 MG IVP (03:07)
[2022-03-17 05:08] LABS: Basophils % 0.1 %; Eosinophils % 0.1 %; Hematocrit 26.5 % (37.0-47.0); Hemoglobin 8.4 g/dL (11.5-15.3); Lymphocytes # 2.3 10^3/uL (0.8-4.8); Lymphocytes % 10.3 %; Mean Corpuscular HGB Conc 31.7 g/dL (30.0-36.0); Mean Corpuscular Hemoglobin 26.4 pg (28.0-34.0); Mean Corpuscular Volume 83.3 fl (81-99); Mean Platelet Volume 12.8 fL (7.4-10.4); Monocytes # 3.8 10^3/uL (0.2-0.9); Monocytes % 17.3 %; Neutrophils # 15.62 10^3/uL (1.8-7.7); Neutrophils % 70.8 %; Nucleated Red Blood Cells % 0 %; Platelet Count 236 10^3/cmm (130-400); Red Blood Count 3.18 10^6/uL (4.1-5.3); Red Cell Distribution Width 15.9 % (12.1-15.1); White Blood Count 22.1 10^3/uL (4.0-10.0)
[2022-03-17 05:37] LABS: Slide Review Slide Review Perform
[2022-03-17 07:05] LABS: Anion Gap 15.6 (5-19); Blood Urea Nitrogen 41 mg/dL (8-23); Calcium 7.8 mg/dL (8.5-10.5); Carbon Dioxide 22 mmol/L (22-29); Chloride 102 mmol/L (98-107); Glomerular Filtration Rate 16.8 mL/min (90-130); Glucose 80 mg/dL (65-115); Magnesium 1.7 mg/dL (1.7-2.3); Osmolality Calculated 291 mOsm/kg (285-295); Potassium 3.6 mmol/L (3.5-5.1); Sodium 136 mmol/L (136-145)
[2022-03-17 07:31] LABS: Glucose Point of Care 68 mg/dL (70-110)
[2022-03-17] MEDS: aspirin 81 mg EC Tablet PO (08:37)
[2022-03-17] MEDS: levothyroxine 88 mcg Tablet PO (08:37)
[2022-03-17] MEDS: pantoprazole DR 40 mg Tablet PO (08:37)
[2022-03-17 08:47] LABS: Glucose Point of Care 111 mg/dL (70-110)
[2022-03-17 11:15] LABS: Glucose Point of Care 107 mg/dL (70-110)
[2022-03-17] MEDS: acetaminophen 500 mg Tablet PO (15:11)
[2022-03-17] MEDS: oxyCODONE 5 mg IR Tab/Cap PO ×2 (15:12→22:46)
[2022-03-17 17:05] LABS: Glucose Point of Care 76 mg/dL (70-110)
[2022-03-17 18:07] LABS: Glucose Point of Care 104 mg/dL (70-110)
--- NOTE | 2022-03-17 19:45 | P.PN_ITS ---
Subjective Subjective: She is visited by multiple family members. She is awake, but not entirely alert, appears uncomfortable, but cannot describe what is bothering her, or where she might be hurting. Does not remember where she is. Denies trouble breathing. Medications: Reviewed: Yes Vitals/I&O/Wt Last Vital Signs Temp 98.5 F 03/17/22 15:54 Pulse 83 03/17/22 15:54 Resp 15 03/17/22 15:54 BP 114/67 03/17/22 15:54 Pulse Ox 96 03/17/22 15:54 O2 Del Method 03/17/22 15:54 03/17/22 03/17/22 03/17/22 06:59 14:59 22:59 Intake Total 1001.667 / 2004.792 1000 / 1000 70 / 1070 Output Total 500 / 750 Balance 501.667 / 5515.300 9876 / 1000 70 / 1070 Weight last 48 hrs Weight 113.398 kg Physical Exam Const: GENERAL APPEARANCE: cooperative NUTRITIONAL APPEARANCE: obese morbidly obese ORIENTATION/CONSCIOUSNESS: Yes awake and Yes confused HENMT: COMMON NORMALS: oropharynx normal Resp: COMMON NORMALS: normal respiratory effort and clear to auscultation bilaterally AUSCULTATION: clear to auscultation bilaterally Cardio: COMMON NORMALS: regular rhythm, S1 normal heart sound present, S2 n ormal heart sound present and No murmurs present (Cardio) RHYTHM: regular rhythm HEART SOUNDS: S1 normal heart sound present and S2 normal heart sound present GI: COMMON NORMALS: Normal to inspection, nondistended, normoactive bowel sounds present, Soft to palpation and non-tender PALPATION: Yes Soft to palpation OTHER: Large pannus, healed prior surgical scars Extremity: COMMON NORMALS: no joint enlargement and no pedal edema Neuro: COMMON NORMALS: moves all extremities Skin: OTHER: Mild to moderate intertrigo under pannus Urinary Catheter Management: Mijares: Cath Placed During This Visit: no Reason for Continuing Indwelling Catheter: Acute Urinary Retention or Obstruction Data 03/17/22 04:39 03/17/22 06:10 Micro: Microbiology 03/15/22 23:55 Urine Culture - Preliminary Urine,Clean Catch Gram Negative Rods 03/15/22 22:05 Blood Culture - Preliminary Blood NEGATIVE TO DATE 03/15/22 22:05 Blood Culture - Preliminary Blood NEGATIVE TO DATE A&P Assessment and plan (1) Sepsis: More than 100,000 gram-negative rods in urine. Continue empiric antibiotic coverage. Follow-up cultures. Blood cultures so far negative. Discussed with family. Influenza and COVID antigens were done, and negative It appears she received significant IV fluid for sepsis Currently she is not hypotensive. Fever is still present. (2) Metabolic acidosis: Improving. likely attributed to her sepsis or acute kidney injury. Doubt DKA (3) Acute cystitis: As above. Mijares catheter due to concern for retention, encephalopathy. CT of abdomen and pelvis demonstrated mild bilateral hydronephrosis without evidence of obstructive calculi. Infection was suggested. (4) Acute metabolic encephalopathy: Consistent with delirium secondary to acute infection. Persistent. Treatment of underlying condition as above. Reorient. Does not have any underlying neurologic deficit or confusion. CT head negative (5) Diabetes: Sliding scale insulin Hold oral sulfonylurea (6) Lymphoma: Patient with history of lymphoma, with recurrence in the past and treatment about 8 years ago Enlarged lymph nodes are noted on her CT abdomen pelvis. This will require further outpatient work-up. (7) Acute kidney injury: Without improvement. Mijares catheter due to concern for retention. Discontinue NSAIDs at discharge. Hold TEJ inhibitor (8) Hypomagnesemia: 1 g magnesium sulfate Recheck tomorrow (9) Anemia: Combine SRINATH and anemia of chronic disease. Will benefit from further outpatient evaluation once recovers from acute illness. As well as iron supplementation. Stool Hemoccult Protonix daily Plan Multiple other medical problems as outlined in past medical history Allow natural Heparin for DVT prophylaxis Daughter is coming to visit her from [place]. Attestations Medical Necessity Statement*: Continue admission for assessment management of sepsis with complicated UTI with acute encephalopathy, DENNISE, additional comorbidities as above. Coding Level of Care Code Acute Solar Project Coordination Specialist for [facility] Fw Diagnoses Sepsis A41.9 Metabolic acidosis E87.20 Acute cystitis N30.00 Acute metabolic encephalopathy G93.41 Diabetes E11.9 Lymphoma C85.90 Acute kidney injury N17.9 Hypomagnesemia E83.42 Anemia D64.9
[2022-03-17 22:40] LABS: Glucose Point of Care 83 mg/dL (70-110)
[2022-03-18] VITALS (9 sets, daily range): BP systolic 115–148; BP diastolic 65–84; PULSE 78–95; RESP 15–23; TEMP 36.8–38.8; O2SAT 91–99
[2022-03-18] MEDS: heparin 5,000 unit/mL INJ 1 mL 5000 UNIT SUBCUT ×3 (02:58→17:43)
[2022-03-18] MEDS: meropenem 1,000 MG in sodium chloride 0.9% (plus) 50 ML 100 MG IV ×2 (02:58→14:25)
[2022-03-18] MEDS: acetaminophen 500 mg Tablet PO ×2 (03:03→22:46)
[2022-03-18] MEDS: sodium chloride 0.9% 1,000 ML 100 ML IV ×2 (03:17→14:34)
--- NOTE | 2022-03-18 03:18 | PC.NURSE ---
Patient to noted to have a fever of 101.9 axillary. Tylenol PO administered.
[2022-03-18 05:21] LABS: Basophils % 0.1 %; Eosinophils % 0.1 %; Hematocrit 28.3 % (37.0-47.0); Hemoglobin 8.6 g/dL (11.5-15.3); Lymphocytes # 2.3 10^3/uL (0.8-4.8); Lymphocytes % 13.4 %; Mean Corpuscular HGB Conc 30.4 g/dL (30.0-36.0); Mean Corpuscular Hemoglobin 25.7 pg (28.0-34.0); Mean Corpuscular Volume 84.7 fl (81-99); Mean Platelet Volume 12.5 fL (7.4-10.4); Monocytes # 4.1 10^3/uL (0.2-0.9); Monocytes % 24.2 %; Neutrophils # 10.46 10^3/uL (1.8-7.7); Nucleated Red Blood Cells % 0 %; Platelet Count 183 10^3/cmm (130-400); Red Blood Count 3.34 10^6/uL (4.1-5.3); Red Cell Distribution Width 15.8 % (12.1-15.1); White Blood Count 17.1 10^3/uL (4.0-10.0)
[2022-03-18 05:45] LABS: Alanine Aminotransferase 8 U/L (0-33); Albumin Level 2.5 g/dL (3.5-5.2); Alkaline Phosphatase 97 U/L (35-105); Aspartate Amino Transferase 23 U/L (0-32); Blood Urea Nitrogen 37 mg/dL (8-23); Calcium 7.9 mg/dL (8.5-10.5); Carbon Dioxide 22 mmol/L (22-29); Chloride 103 mmol/L (98-107); Globulin 3.3 g/dL (1.3-4.6); Glomerular Filtration Rate 23.4 mL/min (90-130); Glucose 72 mg/dL (65-115); Osmolality Calculated 287 mOsm/kg (285-295); Sodium 135 mmol/L (136-145); Total Bilirubin 0.3 mg/dL (0.15-1.2); Total Protein 5.8 g/dL (6.6-8.7)
[2022-03-18 07:45] LABS: Glucose Point of Care 64 mg/dL (70-110)
[2022-03-18 08:45] LABS: Glucose Point of Care 115 mg/dL (70-110)
[2022-03-18] MEDS: pantoprazole DR 40 mg Tablet PO (08:56)
[2022-03-18] MEDS: aspirin 81 mg EC Tablet PO (08:56)
[2022-03-18] MEDS: levothyroxine 88 mcg Tablet PO (08:56)
[2022-03-18] MEDS: nystatin cream 30 gm 1 APPLIC TOPICAL (09:33)
[2022-03-18 11:04] LABS: Glucose Point of Care 102 mg/dL (70-110)
[2022-03-18] MEDS: morphine 4 mg/mL SDV 1 mL 2 MG IVP (11:35)
[2022-03-18 16:59] LABS: Glucose Point of Care 117 mg/dL (70-110)
--- NOTE | 2022-03-18 20:12 | PM.PN ---
Subjective Subjective: She is more alert today, slightly more lucid, but still confused. Currently does not have any pain or discomfort, but noted by family earlier was complaining of some pain without a location. On orientation questions states she is at [facility] [place], cannot recall the year. Medications: Reviewed: Yes Vitals/I&O/Wt Last Vital Signs Temp 100.3 F H 03/18/22 20:00 Pulse 95 03/18/22 20:00 Resp 20 H 03/18/22 20:03 BP 127/69 03/18/22 20:00 Pulse Ox 93 03/18/22 20:03 O2 Del Method 03/18/22 16:16 03/18/22 03/18/22 03/18/22 06:59 14:59 22:59 Intake Total 553.667 / 2472.000 1560 / 1560 170 / 1730 Output Total 1200 / 1200 Balance -646.333 / 8509.992 8711 / 1560 170 / 1730 Physical Exam Narrative: Sister at bedside. Const: GENERAL APPEARANCE: cooperative NUTRITIONAL APPEARANCE: obese morbidly obese ORIENTATION/CONSCIOUSNESS: Yes awake, Yes oriented to place and Yes confused HENMT: COMMON NORMALS: oropharynx normal Resp: COMMON NORMALS: normal respiratory effort and clear to auscultation bilaterally AUSCULTATION: clear to auscultation bilaterally Cardio: COMMON NORMALS: regular rhythm, S1 normal heart sound present, S2 normal heart sound present and No murmurs present (Cardio) RHYTHM: regular rhythm HEART SOUNDS: S1 normal heart sound present and S2 normal heart sound present GI: COMMON NORMALS: Normal to inspection, nondistended, normoactive bowel sounds present, Soft to palpation and non-tender PALPATION: Yes Soft to palpation OTHER: Large pannus, healed prior surgical scars Extremity: COMMON NORMALS: no joint enlargement and no pedal edema Neuro: COMMON NORMALS: moves all extremities SENSORIUM/ORIENTATION: Yes oriented to place Skin: OTHER: Mild to moderate intertrigo under pannus Urinary Catheter Management: Mijares: Cath Placed During This Visit: no Reason for Continuing Indwelling Catheter: Other Data 03/18/22 04:43 03/18/22 04:43 Micro: Microbiology 03/15/22 23:55 Urine Culture - Final Urine,Clean Catch Escherichia coli A&P Assessment and plan (1) Sepsis: With gradual improvement, leukocytosis down to 17,000. Still low-grade fever tonight 100.3. Overall fever curve with improvement. Acute encephalopathy appears to be showing gradual improvement.With mild improvement, creatinine?2.1. Urine culture growing E. coli, resistant to ampicillin, Unasyn, Cipro, Levaquin, Bactrim. Can switch antibiotic to Rocephin which may be safer in the setting of DENNISE, encephalopathy. More than 100,000 gram-negative rods in urine. Continue empiric antibiotic coverage. Follow-up cultures. Blood cultures so far negative. Discussed with family. Influenza and COVID antigens were done, and negative It appears she received significant IV fluid for sepsis Currently she is not hypotensive. Fever is still present. (2) Metabolic acidosis: Improving. likely attributed to her sepsis or acute kidney injury. Doubt DKA (3) Acute cystitis: As above. Mijares catheter due to concern for retention, encephalopathy. CT of abdomen and pelvis demonstrated mild bilateral hydronephrosis without evidence of obstructive calculi. Infection was suggested. (4) Acute metabolic encephalopathy: Consistent with delirium secondary to acute infection. Persistent. Treatment of underlying condition as above. Reorient. Does not have any underlying neurologic deficit or confusion. CT head negative (5) Diabetes: Sliding scale insulin Hold oral sulfonylurea (6) Lymphoma: Patient with history of lymphoma, with recurrence in the past and treatment about 8 years ago Enlarged lymph nodes are noted on her CT abdomen pelvis. This will require further outpatient work-up. Will need referral to hematology at discharge. Leg pain may be related to lymphoma. With acute encephalopathy change pain medication to Dilaudid. Discontinue morphine. (7) Acute kidney injury: Without improvement. Mijares catheter due to concern for retention. Discontinue NSAIDs at discharge. Hold TEJ inhibitor (8) Hypomagnesemia: 1 g magnesium sulfate Recheck tomorrow (9) Anemia: Combine SRINATH and anemia of chronic disease. Will benefit from further outpatient evaluation once recovers from acute illness. As well as iron supplementation. Stool Hemoccult Protonix daily Plan Multiple other medical problems as outlined in past medical history Allow natural Heparin for DVT prophylaxis Daughter is coming to visit her from [place]. Attestations Medical Necessity Statement*: Continue admission for assessment of management of complicated urinary tract infection, can follow-up with him in a lady with recurrence of lymphoma. Coding Level of Care Code Acute Mica Machine Operator for Chg Fwd Diagnoses Sepsis A41.9 Metabolic acidosis E87.20 Acute cystitis N30.00 Acute metabolic encephalopathy G93.41 Diabetes E11.9 Lymphoma C85.90 Acute kidney injury N17.9 Hypomagnesemia E83.42 Anemia D64.9
[2022-03-18 21:23] LABS: Glucose Point of Care 96 mg/dL (70-110)
[2022-03-18] MEDS: cefTRIAXone 1,000 MG in sodium chloride 0.9% (plus) 50 ML 100 MG IV (21:37)
[2022-03-18] MEDS: quetiapine 25 mg Tablet 12.5 MG PO (23:44)
[2022-03-19] VITALS (8 sets, daily range): BP systolic 129–171; BP diastolic 75–84; PULSE 80–88; RESP 14–19; TEMP 36.4–37.4; O2SAT 90–96
[2022-03-19] MEDS: heparin 5,000 unit/mL INJ 1 mL 5000 UNIT SUBCUT ×3 (02:44→17:39)
[2022-03-19] MEDS: sodium chloride 0.9% 1,000 ML 100 ML IV ×3 (02:44→23:55)
[2022-03-19 03:00] LABS: Glucose Point of Care 109 mg/dL (70-110)
[2022-03-19 06:30] LABS: Glucose Point of Care 121 mg/dL (70-110)
[2022-03-19 08:08] LABS: Basophils % 0.4 %; Eosinophils % 0.1 %; Hemoglobin 8.3 g/dL (11.5-15.3); Lymphocytes % 21.6 %; Mean Corpuscular HGB Conc 30.7 g/dL (30.0-36.0); Mean Corpuscular Hemoglobin 25.8 pg (28.0-34.0); Mean Corpuscular Volume 83.9 fl (81-99); Mean Platelet Volume 12.9 fL (7.4-10.4); Monocytes # 2.1 10^3/uL (0.2-0.9); Monocytes % 22.9 %; Neutrophils # 4.77 10^3/uL (1.8-7.7); Neutrophils % 51.3 %; Nucleated Red Blood Cells % 0 %; Platelet Count 126 10^3/cmm (130-400); Red Blood Count 3.22 10^6/uL (4.1-5.3); Red Cell Distribution Width 15.8 % (12.1-15.1); White Blood Count 9.3 10^3/uL (4.0-10.0)
[2022-03-19 08:27] LABS: Alanine Aminotransferase 9 U/L (0-33); Alkaline Phosphatase 119 U/L (35-105); Blood Urea Nitrogen 31 mg/dL (8-23); Calcium 7.8 mg/dL (8.5-10.5); Carbon Dioxide 20 mmol/L (22-29); Chloride 104 mmol/L (98-107); Globulin 3.5 g/dL (1.3-4.6); Glomerular Filtration Rate 32.1 mL/min (90-130); Glucose 112 mg/dL (65-115); Osmolality Calculated 285 mOsm/kg (285-295); Sodium 134 mmol/L (136-145); Total Bilirubin 0.2 mg/dL (0.15-1.2); Total Protein 5.5 g/dL (6.6-8.7)
[2022-03-19 08:31] LABS: Anion Gap 14.3 (5-19); Aspartate Amino Transferase 23 U/L (0-32); Potassium 4.3 mmol/L (3.5-5.1)
[2022-03-19] MEDS: iron sucrose 200 MG in sodium chloride 0.9% (100 ml) 100 ML 220 MG IV (10:13)
[2022-03-19] MEDS: levothyroxine 88 mcg Tablet PO (10:13)
[2022-03-19] MEDS: aspirin 81 mg EC Tablet PO (10:13)
[2022-03-19] MEDS: pantoprazole DR 40 mg Tablet PO (10:13)
[2022-03-19 10:43] LABS: Procalcitonin 17.04 ng/mL (0-0.5)
[2022-03-19 10:45] LABS: Thyroid Stimulating Hormone 2.63 uIU/mL (0.27-4.20)
--- NOTE | 2022-03-19 12:37 | PC.SOCIAL ---
IMM Update pg 2 of IMM updated and reviewed w/ patients daughter Nery who is @ bedside. Copy provided and copy dated, initialed and placed in chart.
[2022-03-19 12:44] LABS: Glucose Point of Care 83 mg/dL (70-110)
--- NOTE | 2022-03-19 14:54 | PM.PN ---
Subjective Subjective: Hospital course, labs appreciated. On examination seen with family at bedside. Patient is sleeping but wakes to verbal and physical stimulus. On waking up patient is tired appearing, lethargic. Alert and oriented to self, being in hospital, ER. Not able to remember why she is in the hospital. Denies any nausea, vomiting, headache. Medications: Reviewed: Yes Vitals/I&O/Wt Last Vital Signs Temp 99 F 03/19/22 11:51 Pulse 85 03/19/22 11:51 Resp 17 03/19/22 11:51 BP 171/84 03/19/22 11:51 Pulse Ox 96 03/19/22 11:51 O2 Del Method 03/18/22 16:16 O2 Flow Rate 2 03/18/22 20:00 03/18/22 03/19/22 03/19/22 22:59 06:59 14:59 Intake Total 280 / 1840 1600 / 3440 1350 / 1350 Output Total 500 / 500 Balance 280 / 1840 1100 / 2940 1350 / 1350 Physical Exam Narrative: Family at bedside. Const: GENERAL APPEARANCE: cooperative and lethargic NUTRITIONAL APPEARANCE: obese morbidly obese ORIENTATION/CONSCIOUSNESS: Yes awake, Yes oriented to place, Yes confused and Yes lethargic HENMT: COMMON NORMALS: oropharynx normal Resp: COMMON NORMALS: normal respiratory effort and clear to auscultation bilaterally AUSCULTATION: clear to auscultation bilaterally Cardio: COMMON NORMALS: regular rhythm, S1 normal heart sound present, S2 normal heart sound present and No murmurs present (Cardio) RHYTHM: regular rhythm HEART SOUNDS: S1 normal heart sound present and S2 normal heart sound present GI: COMMON NORMALS: Normal to inspection, nondistended, normoactive bowel sounds present, Soft to palpation and non-tender PALPATION: Yes Soft to palpation OTHER: Large pannus, healed prior surgical scars Extremity: COMMON NORMALS: no joint enlargement and no pedal edema Neuro: COMMON NORMALS: moves all extremities SENSORIUM/ORIENTATION: Yes oriented to place and Yes lethargic Skin: OTHER: Mild to moderate intertrigo under pannus Urinary Catheter Management: Mijares: Cath Placed During This Visit: no Reason for Continuing Indwelling Catheter: Acute Urinary Retention or Obstruction Data 03/19/22 07:55 03/19/22 07:55 Micro: Microbiology 03/19/22 05:18 Occult Blood (FIT) - Final Stool Routine Collection 03/15/22 23:55 Urine Culture - Final Urine,Clean Catch Escherichia coli A&P Assessment and plan (1) Sepsis: Present on admission. Resolving. Urine culture growing E. coli. Sensitivities of appreciated. Continue with IV ceftriaxone 1 g daily for overall 7 days. Flu and COVID-19 negative. (2) Acute cystitis: As above. Mijares catheter due to concern for retention, encephalopathy. CT of abdomen and pelvis demonstrated mild bilateral hydronephrosis without evidence of obstructive calculi. (3) Acute metabolic encephalopathy: Secondary to sepsis. Family at bedside. Frequent reorientation. Seems to be improving. CT head negative for any acute abnormality. Vitamin B12 within normal limits. Check TSH. No hepatic dysfunction. Uremia seems to be improving as well. Physical therapy. Change pain medication. Hold off on any further narcotic. Stop Dilaudid. Start on tramadol 50 mg every 6 hourly as needed. Family updated and agreeable. (4) Acute kidney injury: Medical reconciliation done for nephrotoxic drugs. Do not know baseline. Improving. Creatinine down to 1.6. CT abdomen pelvis negative for any obstructive nephropathy. Concern for urinary retention. Bilateral hydronephrosis mild on CT scan. Continue Mijares catheterization. Monitor BMP daily. (5) Diabetes: Sliding scale insulin Home Check A1c. (6) Lymphoma: Patient with history of lymphoma, with recurrence in the past and treatment about 8 years ago Enlarged matted lymph nodes are noted on her CT abdomen pelvis. This will require further outpatient work-up. Will need referral to hematology at discharge. (7) Anemia: Combine SRINATH and anemia of chronic disease. Will benefit from further outpatient evaluation once recovers from acute illness. As well as iron supplementation. Stool Hemoccult negative. Protonix daily IV iron supplementation. (8) Metabolic acidosis: Improving. likely attributed to her sepsis or acute kidney injury. Doubt DKA (9) Hypomagnesemia: Plan Multiple other medical problems as outlined in past medical history Allow natural Heparin for DVT prophylaxis Cardiac diet. Protonix for PUD prophylaxis. Discharge planning: Plan to discharge to home with home health versus SNF depending on physical therapy evaluation and clinical improvement. Currently patient is severely lethargic Attestations Medical Necessity Statement*: Requires further hospitalization for management of the UTI, sepsis leading to acute metabolic encephalopathy, acute kidney injury while safe discharge planning is sought Time Spent in Patient Care: Greater than 35 minutes Coding Level of Care Code Acute Intranet Specialist for Chg Fwd Diagnoses Sepsis A41.9 Acute cystitis N30.00 Acute metabolic encephalopathy G93.41 Acute kidney injury N17.9 Diabetes E11.9 Lymphoma C85.90 Anemia D64.9 Metabolic acidosis E87.20 Hypomagnesemia E83.42
--- NOTE | 2022-03-19 14:56 | XRR_ITS ---
PROCEDURE INFORMATION: Exam: XR Bilateral Hips Exam date and time: 03/19/2022 3:57 PM Age: 66 years old Clinical indication: Injury or trauma; Fall; Blunt trauma (contusions or hematomas); Bilateral; Hip TECHNIQUE: Imaging protocol: Radiologic exam of the bilateral hips. Views: 2 views of hips with pelvis when performed. 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 Moderate bilateral SI DJD. No acute fracture. Soft tissues: Unremarkable. XR/XR hip BI 2V wo/[place] [id number] IMPRESSION: 1. No definite acute fracture or dislocation. The exam is challenging due to body habitus. If pain persists and/or patient cannot bear weight, consider need for pelvis CT. 2. Advanced bilateral hip and SI DJD.
[2022-03-19 17:22] LABS: Glucose Point of Care 111 mg/dL (70-110)
[2022-03-19 20:49] LABS: Glucose Point of Care 119 mg/dL (70-110)
[2022-03-19] MEDS: cefTRIAXone 1,000 MG in sodium chloride 0.9% (plus) 50 ML 100 MG IV (20:49)
[2022-03-19] MEDS: nystatin cream 30 gm 1 APPLIC TOPICAL (21:16)
[2022-03-19] MEDS: TRAMadol 50 mg Tablet PO (23:22)
[2022-03-20] MEDS: heparin 5,000 unit/mL INJ 1 mL 5000 UNIT SUBCUT ×3 (03:02→20:00)
[2022-03-20 04:00] VITALS: BP 134/75; PULSE 83; RESP 15; TEMP 37.2; O2SAT 96
[2022-03-20 04:19] LABS: Basophils # 0.1 10^3/uL (0.0-0.1); Basophils % 0.7 %; Eosinophils % 0.1 %; Hematocrit 27.3 % (37.0-47.0); Hemoglobin 8.3 g/dL (11.5-15.3); Lymphocytes # 1.9 10^3/uL (0.8-4.8); Lymphocytes % 23.5 %; Mean Corpuscular HGB Conc 30.4 g/dL (30.0-36.0); Mean Corpuscular Hemoglobin 25.9 pg (28.0-34.0); Mean Platelet Volume 12.5 fL (7.4-10.4); Monocytes # 2.2 10^3/uL (0.2-0.9); Monocytes % 26.2 %; Neutrophils # 3.69 10^3/uL (1.8-7.7); Neutrophils % 44.7 %; Nucleated Red Blood Cells % 0 %; Platelet Count 130 10^3/cmm (130-400); Red Blood Count 3.21 10^6/uL (4.1-5.3); Red Cell Distribution Width 15.7 % (12.1-15.1); White Blood Count 8.3 10^3/uL (4.0-10.0)
[2022-03-20 04:29] LABS: Alanine Aminotransferase 8 U/L (0-33); Albumin Level 2.3 g/dL (3.5-5.2); Alkaline Phosphatase 115 U/L (35-105); Aspartate Amino Transferase 14 U/L (0-32); Blood Urea Nitrogen 23 mg/dL (8-23); Calcium 7.7 mg/dL (8.5-10.5); Carbon Dioxide 22 mmol/L (22-29); Chloride 107 mmol/L (98-107); Globulin 3.2 g/dL (1.3-4.6); Glomerular Filtration Rate 44.7 mL/min (90-130); Glucose 124 mg/dL (65-115); Osmolality Calculated 289 mOsm/kg (285-295); Sodium 137 mmol/L (136-145); Total Bilirubin 0.2 mg/dL (0.15-1.2); Total Protein 5.5 g/dL (6.6-8.7)
[2022-03-20 04:31] LABS: Chol HDL Ratio 5.17 mg/dL (0.0-4.40); Cholesterol 93 mg/dL (0-200); HDL Cholesterol 18 mg/dL (60-100); LDL Cholesterol Calculated 39 mg/dL (50-129); Triglycerides 180 mg/dL (0-150); VLDL Cholestrol Calculation 36 mg/dL (0-30)
[2022-03-20 04:35] LABS: Estmated Average Glucose 171; Hemoglobin A1C 7.6 % (4.0-6.0)
[2022-03-20 06:21] LABS: Glucose Point of Care 106 mg/dL (70-110)
[2022-03-20 08:00] VITALS: BP 148/82; PULSE 78; RESP 17; TEMP 36.4; O2SAT 97
[2022-03-20] MEDS: levothyroxine 88 mcg Tablet PO (08:26)
[2022-03-20] MEDS: pantoprazole DR 40 mg Tablet PO (08:26)
[2022-03-20] MEDS: aspirin 81 mg EC Tablet PO (08:26)
[2022-03-20] MEDS: nystatin cream 30 gm 1 APPLIC TOPICAL ×2 (08:28→18:12)
[2022-03-20] MEDS: iron sucrose 200 MG in sodium chloride 0.9% (100 ml) 100 ML 220 MG IV (11:58)
[2022-03-20 12:00] VITALS: BP 156/84; PULSE 82; RESP 16; TEMP 36.5; O2SAT 93
[2022-03-20 12:00] LABS: Glucose Point of Care 156 mg/dL (70-110)
--- NOTE | 2022-03-20 13:56 | PM.PN ---
Subjective Subjective: No acute events overnight. Patient on examination today sitting in the recliner. Patient walked with physical therapy today family members at bedside as well. Patient is a lot more awake and alert. Able to have complete conversation. Denies any nausea, vomiting, headache. Medications: Reviewed: Yes Vitals/I&O/Wt Last Vital Signs Temp 97.7 F 03/20/22 12:00 Pulse 82 03/20/22 12:00 Resp 16 03/20/22 12:00 BP 156/84 03/20/22 12:00 Pulse Ox 93 03/20/22 12:00 O2 Del Method 03/20/22 04:00 O2 Flow Rate 1.5 03/20/22 09:15 03/19/22 03/20/22 03/20/22 22:59 06:59 14:59 Intake Total 310 / 1660 990 / 2650 280 / 280 Output Total 950 / 950 900 / 1850 Balance -640 / 710 90 / 800 280 / 280 Physical Exam Narrative: Family at bedside. Const: GENERAL APPEARANCE: cooperative and lethargic NUTRITIONAL APPEARANCE: obese morbidly obese ORIENTATION/CONSCIOUSNESS: Yes awake, Yes oriented to place, Yes confused and Yes lethargic HENMT: COMMON NORMALS: oropharynx normal Resp: COMMON NORMALS: normal respiratory effort and clear to auscultation bilaterally AUSCULTATION: clear to auscultation bilaterally Cardio: COMMON NORMALS: regular rhythm, S1 normal heart sound present, S2 normal heart sound present and No murmurs present (Cardio) RHYTHM: regular rhythm HEART SOUNDS: S1 normal heart sound present and S2 normal heart sound present GI: COMMON NORMALS: Normal to inspection, nondistended, normoactive bowel sounds present, Soft to palpation and non-tender PALPATION: Yes Soft to palpation OTHER: Large pannus, healed prior surgical scars Extremity: COMMON NORMALS: no joint enlargement and no pedal edema Neuro: COMMON NORMALS: moves all extremities SENSORIUM/ORIENTATION: Yes oriented to place and Yes lethargic Skin: OTHER: Mild to moderate intertrigo under pannus Urinary Catheter Management: Mijares: Cath Placed During This Visit: no Reason for Continuing Indwelling Catheter: Other Data 03/20/22 03:55 03/20/22 03:55 Micro: Microbiology 03/19/22 05:18 Occult Blood (FIT) - Final Stool Routine Collection A&P Assessment and plan (1) Sepsis: Present on admission. Resolving. Urine culture growing E. coli. Sensitivities of appreciated. Continue with IV ceftriaxone 1 g daily for overall 7 days. Flu and COVID-19 negative. (2) Acute cystitis: As above. Mijares catheter due to concern for retention, encephalopathy. CT of abdomen and pelvis demonstrated mild bilateral hydronephrosis without evidence of obstructive calculi. (3) Acute metabolic encephalopathy: Secondary to sepsis. Family at bedside. Frequent reorientation. Seems to be improving. CT head negative for any acute abnormality. Vitamin B12 within normal limits. Check TSH. No hepatic dysfunction. Uremia seems to be improving as well. Physical therapy. Change pain medication. Hold off on any further narcotic. Stop Dilaudid. Start on tramadol 50 mg every 6 hourly as needed. Family updated and agreeable. (4) Acute kidney injury: Medical reconciliation done for nephrotoxic drugs. Do not know baseline. Improving. Creatinine down to 1.6. CT abdomen pelvis negative for any obstructive nephropathy. Concern for urinary retention. Bilateral hydronephrosis mild on CT scan. Continue Mijares catheterization. Monitor BMP daily. (5) Diabetes: Sliding scale insulin Home Check A1c. (6) Lymphoma: Patient with history of lymphoma, with recurrence in the past and treatment about 8 years ago Enlarged matted lymph nodes are noted on her CT abdomen pelvis. This will require further outpatient work-up. Will need referral to hematology at discharge. (7) Anemia: Combine SRINATH and anemia of chronic disease. Will benefit from further outpatient evaluation once recovers from acute illness. As well as iron supplementation. Stool Hemoccult negative. Protonix daily IV iron supplementation. (8) Metabolic acidosis: Improving. likely attributed to her sepsis or acute kidney injury. Doubt DKA (9) Hypomagnesemia: Plan Multiple other medical problems as outlined in past medical history Allow natural Heparin for DVT prophylaxis Cardiac diet. Protonix for PUD prophylaxis. Plan for the day: Continue with IV antibiotics. Can switch over to oral cefuroxime on discharge to finish a 7-day course. Physical therapy. Voiding trial. Remove Mijares. Bladder scan. Add Flomax 0.4 mg oral daily. Stop IV fluids as patient is eating well. Creatinine trending down to 1.2 today. Repeat BMP in AM. Discharge planning: Plan to discharge home. Discussed with family regarding possible home health versus for physical therapy. For now family would want to hold off and continue with home exercise program. Attestations Medical Necessity Statement*: Requires further hospitalization for management of UTI, resolving metabolic encephalopathy, urinary retention leading to acute kidney injury Time Spent in Patient Care: Greater than 35 minutes Coding Level of Care Code Acute Silviculture Teacher for g Fwd Diagnoses Sepsis A41.9 Acute cystitis N30.00 Acute metabolic encephalopathy G93.41 Acute kidney injury N17.9 Diabetes E11.9 Lymphoma C85.90 Anemia D64.9 Metabolic acidosis E87.20 Hypomagnesemia E83.42
--- NOTE | 2022-03-20 15:00 | PC.NURSE ---
Mijares Catheter removed at this time. Patient tolerated well.
[2022-03-20 16:00] VITALS: BP 144/84; PULSE 88; RESP 16; TEMP 36.6; O2SAT 90
[2022-03-20 17:31] LABS: Glucose Point of Care 217 mg/dL (70-110)
[2022-03-20] MEDS: insulin lispro 100 unit/1 mL SUBCUT (18:09)
--- NOTE | 2022-03-20 19:46 | PC.NURSE ---
Report given to Gregoria SANTIZO.
[2022-03-20 19:53] VITALS: BP 163/80; PULSE 94; RESP 15; TEMP 37.6; O2SAT 94
[2022-03-20] MEDS: TRAMadol 50 mg Tablet PO (19:59)
[2022-03-20] MEDS: cefTRIAXone 1,000 MG in sodium chloride 0.9% (plus) 50 ML 100 MG IV (20:00)
[2022-03-20 21:03] LABS: Glucose Point of Care 140 mg/dL (70-110)
[2022-03-20] MEDS: acetaminophen 500 mg Tablet PO (23:41)
[2022-03-20 23:59] VITALS: BP 151/75; PULSE 86; RESP 17; TEMP 37.2; O2SAT 93
[2022-03-21] MEDS: TRAMadol 50 mg Tablet PO ×2 (02:07→18:33)
[2022-03-21] MEDS: heparin 5,000 unit/mL INJ 1 mL 5000 UNIT SUBCUT ×2 (02:08→11:01)
[2022-03-21 04:00] VITALS: BP 142/81; PULSE 76; RESP 15; TEMP 36.4; O2SAT 96
[2022-03-21 04:02] LABS: Glucose Point of Care 186 mg/dL (70-110)
[2022-03-21 04:36] LABS: Hematocrit 29.9 % (37.0-47.0); Hemoglobin 8.9 g/dL (11.5-15.3); Mean Corpuscular HGB Conc 29.8 g/dL (30.0-36.0); Mean Corpuscular Hemoglobin 25.7 pg (28.0-34.0); Mean Corpuscular Volume 86.4 fl (81-99); Mean Platelet Volume 12.6 fL (7.4-10.4); Platelet Count 124 10^3/cmm (130-400); Red Blood Count 3.46 10^6/uL (4.1-5.3); Red Cell Distribution Width 15.8 % (12.1-15.1); White Blood Count 10.4 10^3/uL (4.0-10.0)
[2022-03-21 05:01] LABS: Alanine Aminotransferase 7 U/L (0-33); Albumin Level 2.6 g/dL (3.5-5.2); Alkaline Phosphatase 126 U/L (35-105); Anion Gap 14.1 (5-19); Aspartate Amino Transferase 19 U/L (0-32); Blood Urea Nitrogen 19 mg/dL (8-23); Calcium 8.2 mg/dL (8.5-10.5); Carbon Dioxide 22 mmol/L (22-29); Chloride 107 mmol/L (98-107); Globulin 3.7 g/dL (1.3-4.6); Glomerular Filtration Rate 44.7 mL/min (90-130); Glucose 202 mg/dL (65-115); Osmolality Calculated 296 mOsm/kg (285-295); Potassium 4.1 mmol/L (3.5-5.1); Sodium 139 mmol/L (136-145); Total Bilirubin 0.2 mg/dL (0.15-1.2); Total Protein 6.3 g/dL (6.6-8.7)
[2022-03-21 06:05] LABS: Absolute Segmented Neutrophil 5.2 10/cmm (1.6-7.1); Band Neutrophils Absolute 0.4 10^3/cmm (0.0-1.2); Lymphocytes 23 %; Segmented Neutrophils 50 %; Total Cells Counted 100 (0-100)
[2022-03-21 06:06] LABS: Eosinophils 0 %; Monocytes Absolute 1.9 10^3/cmm (0.1-0.6)
[2022-03-21 06:07] LABS: Lymphocytes Absolute 2.7 10^3/cmm (1.2-3.4)
[2022-03-21 06:11] LABS: Absolute Neutrophil 5.6 10^3/cmm (1.4-6.5); Giant Platelets 1+; Platelet Estimate Decreased (Normal)
[2022-03-21 06:15] LABS: Anisocytosis 1+
[2022-03-21 06:26] LABS: Glucose Point of Care 179 mg/dL (70-110)
[2022-03-21 08:00] VITALS: BP 148/80; PULSE 71; RESP 18; TEMP 36.5; O2SAT 98
[2022-03-21] MEDS: levothyroxine 88 mcg Tablet PO (08:28)
[2022-03-21] MEDS: tamsulosin 0.4 mg Capsule PO (08:28)
[2022-03-21] MEDS: aspirin 81 mg EC Tablet PO (08:28)
[2022-03-21] MEDS: insulin lispro 100 unit/1 mL SUBCUT ×2 (08:29→12:50)
[2022-03-21] MEDS: pantoprazole DR 40 mg Tablet PO (08:29)
--- NOTE | 2022-03-21 09:49 | PC.CHAP ---
Pastoral Care Encounter/Spiritual Assessment Type of Contact [] Declined blade aligner visit [] Patient/Family/Request visit [] Outpatient visit [] Follow-up visit [] Physician referral [] Code/Alert [x] Routine visit [] Staff referral [] Actively dying [] Patient sleeping [] Family support [] [] Out of room [] Palliative care [] [] Receiving care in room [] Pre-surgical visit [] Trauma [] Long length of stay [] ICU visit [] Other: Relational/Emotional Strength [x] Patient feels connected with others/family/visitors/staff [] Distress [] Loneliness/isolation [] Abandonment Spirituality of Patient [x] Person of May [x] Attends Yazidism of their May [x] Believes in Prayer [] Reads Bible or Lutheran materials [] There are Spiritual issues to be addressed Personal Care Service Provider Interventions [x] Prayer [x] Active listening [x] Non-anxious presence [x] Spiritual/emotional support [] Crisis/trauma care [] Spiritual counseling [] Bereavement support [] Provided bereavement packet [] Provided Bible/devotional materials [] Provided toy/stuffed animal, coloring book to patient or family member [] Provided Communion [] Anointing/Amber [] Salvation [x] Completed spiritual assessment [] Other: Impact on Illness or Injury [] Angry [] Fearful [] Anxious [] Often cries [] Exhaustion [] Unable to work [] Unable to attend caodaism [] Unable to walk/stand [] Unable to read [] Unable to drive [] Unable to eat/drink [] Unable to sleep [] Unable to be with family [] Patient intubated [] Other: Summary Pt's daughter and niece were present in room at time of visit. Pt states she desires to be placed on a prayer list. She has cancer and this is the third time she has had to undergo treatment. Pt's daughter is and is stationed in [place]. However, [place] and living with her mother and taking care of her until things are lined out. 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 Pt is of the [employer] may but due to health been unable to attend buddhist services for awhile. Time spent with patient 20m
[2022-03-21] MEDS: iron sucrose 200 MG in sodium chloride 0.9% (100 ml) 100 ML 220 MG IV (11:01)
[2022-03-21 11:45] LABS: Glucose Point of Care 216 mg/dL (70-110)
[2022-03-21 12:00] VITALS: BP 171/88; PULSE 75; TEMP 36.6; O2SAT 98
--- NOTE | 2022-03-21 12:40 | PC.SOCIAL ---
IMM Updated Updated pt's family on IMM. No questions voiced. Provided pt a copy. Initialed, dated, & timed copy in chart.
[2022-03-21] MEDS: amlodipine 5 mg Tablet PO (12:50)
--- NOTE | 2022-03-21 12:57 | PM.DCS ---
Discharge Providers Date of Admission: 03/16/22 01:10 Date of Discharge: March 21, 2022 Attending Provider at Admission: Anahi Webb MD Attending Provider at Discharge: Aj Miller MD Primary Care Provider: Celia Louis MD Diagnoses at Discharge Discharge Diagnosis (1) Sepsis: Status: Acute (2) Acute cystitis: Status: Acute (3) Acute metabolic encephalopathy: Status: Acute (4) Acute kidney injury: Status: Acute (5) Diabetes: Status: Acute (6) Lymphoma: Status: Acute (7) Anemia: Status: Acute (8) Metabolic acidosis: Status: Acute (9) Hypomagnesemia: Status: Acute Reason for Visit Reason for Visit: AMS Brief History: History as per HPI: Macey Brush is a 66 year old female who carries history of lymphoma, arthritis, lives alone presented with chief complaint of confusion and fever.? Patient fell today around [address] due to snow.? She was brought to the hospital her family deemed her stable.? When family checked on her around 6 PM she was not picking up the phone call, her sister went in person to see her, Ms. Brush was very lethargic fatigued and confused.? She was laying on a couch.? As per the patient she was suffering from viral illness for last 3 days he experienced 1 episode of emesis.? He has been experiencing dysuria for urinary frequency. In the ER she has been diagnosed with sepsis related to UTI, her daughter who is in [place] is very concerned if lymphoma has returned I requested CT chest abdomen pelvis she had received 2 L bolus along blood cultures and antibiotics, her septic bolus would require at least 3 L, given additional liter of fluid, lactic acid is high She is getting acidotic I have given her 1 amp of bicarb She is not hypotensive Hospital Course Hospital Course Patient was admitted to the hospital further evaluation and management of acute metabolic encephalopathy in setting of sepsis secondary to acute cystitis. On admission she was also found to be in acute kidney injury and high anion gap metabolic acidosis. She was started on IV hydration along with broad-spectrum antibiotics. She responded well to the treatment and is back to her baseline mentation for last [address] abdomen pelvis was done which is concerning for extensive lymphadenopathy. Blood cultures remain negative and urine culture was consistent with E. coli. Antibiotics were changed and de-escalate as per sensitivities. Safe discharge plan were discussed in detail with patient and patient's family at bedside. As patient was doing fine with physical therapy family wanted patient to be discharged to home with home exercise program. Patient's daughter will be living with her for a short while as she recuperates. During hospitalization she did have episodes of urinary retention for which she required Mijares catheter. Voiding trial has been done and she has passed. Patient's creatinine trended down and is back to around 1.2 for last 48 hours. Patient is making good amount of urine. During hospitalization she was found to have elevated blood pressures for which her antihypertensives were adjusted. She has been discharged home with home exercise program in hemodynamically stable condition on oral antibiotics for 3 more days to finish a course of antibiotics for UTI. She is to follow-up with a primary care provider with a blood pressure chart within next 1 week. She is to follow-up with oncology for further evaluation of extensive lymphadenopathy with high concern for lymphoma recurrence. Physical Exam Narrative: Family at bedside. Const: GENERAL APPEARANCE: cooperative and lethargic NUTRITIONAL APPEARANCE: obese morbidly obese ORIENTATION/CONSCIOUSNESS: Yes awake, Yes oriented to place, Yes confused and Yes lethargic HENMT: COMMON NORMALS: oropharynx normal Resp: COMMON NORMALS: normal respiratory effort and clear to auscultation bilaterally AUSCULTATION: clear to auscultation bilaterally Cardio: COMMON NORMALS: regular rhythm, S1 normal heart sound present, S2 normal heart sound present and No murmurs present (Cardio) RHYTHM: regular rhythm HEART SOUNDS: S1 normal heart sound present and S2 normal heart sound present GI: COMMON NORMALS: Normal to inspection, nondistended, normoactive bowel sounds present, Soft to palpation and non-tender PALPATION: Yes Soft to palpation OTHER: Large pannus, healed prior surgical scars Extremity: COMMON NORMALS: no joint enlargement and no pedal edema Neuro: COMMON NORMALS: moves all extremities SENSORIUM/ORIENTATION: Yes oriented to place and Yes lethargic Skin: OTHER: Mild to moderate intertrigo under pannus Urinary Catheter Management: Mijares: Cath Placed During This Visit: yes, but has since been removed by the nurse Reason for Continuing Indwelling Catheter: Decision to DC Catheter Date Urinary Catheter Removed: 03/20/22 Time Urinary Catheter Discontinued: 15:00 Discharge Data Studies Completed and Pending Completed Studies During Hospitalization Category Date Time Status CT cervical spin wo con* [id number] Stat Cat Scan 03/15/22 21:[address] [place] [id number] Stat Cat Scan 03/16/22 05:[address] head wo con* [id number] Stat Cat Scan 03/15/22 21:38 Completed XR chest 1V portable [id number] Stat Exams 03/15/22 21:38 Completed XR hip BI 2V wo/[place] [id number] Routine Exams 03/19/22 14:56 Completed Radiology Impressions Cervical Spine CT 03/15/22 21:38 IMPRESSION: 1. Degenerative changes. 2. No fracture is identified. Chest X-Ray 03/15/22 21:38 IMPRESSION: Mild basilar atelectasis. Head CT 03/15/22 21:38 IMPRESSION: No acute intracranial finding. Chest/Abdomen/Pelvis CT 03/16/22 05:55 IMPRESSION: These pulmonary imaging features can be seen with (COVID-19) pneumonia, though are nonspecific and can occur with a variety of infectious and noninfectious processes, including Covid-19 infection. ([id number]) IMPRESSION: 1. Mild bilateral hydronephrosis and ureteral dilatation without evidence of obstructive ureteral calculi. Periureteral inflammatory stranding suggests infection. Pyelonephritis may present this picture. 2. Thickening of the bladder trigone suggesting neoplastic infiltration, likely lymphomatous, less likely bladder carcinoma . 3. Multiple mesenteric and retroperitoneal lymph nodes. There is a mass of matted lymph nodes in the mid mesentery with irregular blurry borders consistent with the patient's history of lymphoma. 4. Mild hepatosplenomegaly and hepatic steatosis. THIS REPORT CONTAINS FINDINGS THAT MAY BE CRITICAL TO PATIENT CARE. The findings were verbally communicated via telephone conference with ANAHI WEBB at 7:01 AM [employer]LECT[employer] on 03/16/2022. The findings were acknowledged and understood. Hip/Pelvis X-Ray 03/19/22 14:56 IMPRESSION: 1. No definite acute fracture or dislocation. The exam is challenging due to body habitus. If pain persists and/or patient cannot bear weight, consider need for pelvis CT. 2. Advanced bilateral hip and SI DJD. Microbiology 03/15/22 22:05 Blood Blood Culture - Final NO GROWTH AFTER 5 DAYS 03/15/22 22:05 Blood Blood Culture - Final NO GROWTH AFTER 5 DAYS 03/19/22 05:18 Stool Routine Collection Occult Blood (FIT) - Final 03/15/22 23:55 Urine,Clean Catch Urine Culture - Final Escherichia coli Laboratory Results WBC 10.4 10^3/uL (4.0-10.0) H 03/21/22 04:00 RBC 3.46 10^6/uL (4.1-5.3) L 03/21/22 04:00 Hgb 8.9 g/dL (11.5-15.3) L 03/21/22 04:00 Hct 29.9 % (37.0-47.0) L 03/21/22 04:00 MCV 86.4 fl (81-99) 03/21/22 04:00 MCH 25.7 pg (28.0-34.0) L 03/21/22 04:00 MCHC 29.8 g/dL (30.0-36.0) L 03/21/22 04:00 RDW 15.8 % (12.1-15.1) H 03/21/22 04:00 Plt Count 124 10^3/cmm (130-400) L 03/21/22 04:00 MPV 12.6 fL (7.4-10.4) H 03/21/22 04:00 Neut % (Auto) 44.7 % 03/20/22 03:55 Lymph % (Auto) Not Reportable 03/21/22 04:00 [place] % (Auto) Not Reportable 03/21/22 04:00 Eos % (Auto) 0.1 % 03/20/22 03:55 Baso % (Auto) 0.7 % 03/20/22 03:55 Neut # (Auto) 3.69 10^3/uL (1.8-7.7) 03/20/22 03:55 Lymph # (Auto) Not Reportable 03/21/22 04:00 [place] # (Auto) Not Reportable 03/21/22 04:00 Eos # (Auto) 0.0 10^3/uL (0.0-0.8) 03/20/22 03:55 Baso # (Auto) 0.1 10^3/uL (0.0-0.1) 03/20/22 03:55 Nucleated RBC % (auto) 0 % 03/20/22 03:55 Total Counted 100 (0-100) 03/21/22 04:00 Atypical Lymphs % 3.0 % (0-5) 03/21/22 04:00 Absolute Neutrophils 5.6 10^3/cmm (1.4-6.5) 03/21/22 04:00 Segmented Neutrophils 50 % 03/21/22 04:00 Abs Segm Neuts (Man) 5.2 10/cmm (1.6-7.1) 03/21/22 04:00 Band Neutrophils 4.0 % 03/21/22 04:00 Abs Band Neuts (Man) 0.4 10^3/cmm (0.0-1.2) 03/21/22 04:00 Absolute Lymphocytes 2.7 10^3/cmm (1.2-3.4) 03/21/22 04:00 Lymphocytes (Manual) 23 % 03/21/22 04:00 Monocytes (Manual) 18.0 % 03/21/22 04:00 Absolute Monocytes 1.9 10^3/cmm (0.1-0.6) H 03/21/22 04:00 Eosinophils (Manual) 0 % 03/21/22 04:00 Absolute Eosinophils 0.0 10^3/cmm (0.0-0.7) 03/21/22 04:00 Basophils (Manual) 0.0 % 03/21/22 04:00 Absolute Basophils 0.0 10^3/cmm (0.0-0.2) 03/21/22 04:00 Metamyelocytes 1.0 % 03/21/22 04:00 Myelocytes 1.0 % 03/21/22 04:00 Nucleated RBCs # 0.0 /100WBC 03/20/22 03:55 Platelet Estimate Decreased (Normal) L 03/21/22 04:00 Giant Platelets 1+ H 03/21/22 04:00 Anisocytosis 1+ H 03/21/22 04:00 PT 15.60 SECONDS (12.1-14.9) H 03/15/22 22:07 INR 1.21 (0.8-1.2) H 03/15/22 22:07 D-Dimer 3.21 ug/mIFEU (0-0.59) H 03/16/22 02:58 Sodium 139 mmol/L (136-145) 03/21/22 04:00 Potassium 4.1 mmol/L (3.5-5.1) 03/21/22 04:00 Chloride 107 mmol/L (98-107) 03/21/22 04:00 Carbon Dioxide 22 mmol/L (22-29) 03/21/22 04:00 Anion Gap 14.1 (5-19) 03/21/22 04:00 BUN 19 mg/dL (8-23) 03/21/22 04:00 Creatinine 1.2 mg/dL (0.5-0.9) H 03/21/22 04:00 GFR Calculation 44.7 mL/min (90-130) L 03/21/22 04:00 Glucose 202 mg/dL (65-115) H 03/21/22 04:00 POC Glucose 216 mg/dL (70-110) H 03/21/22 11:31 Estimat Average Glucose 171 03/20/22 03:55 Hemoglobin A1c 7.6 % (4.0-6.0) H 03/20/22 03:55 Calculated Osmolality 296 mOsm/kg (285-295) H 03/21/22 04:00 Lactate 2.4 mmol/L (0.5-2.2) H 03/16/22 10:25 Calcium 8.2 mg/dL (8.5-10.5) L 03/21/22 04:00 Magnesium 2.0 mg/dL (1.7-2.3) 03/18/22 04:43 Iron 12 ug/dL (37-145) L 03/16/22 10:25 TIBC 190 mcg/dl 03/16/22 02:58 % Saturation 6.3 % (20-50) L 03/16/22 02:58 Unsat Iron Binding 178 ug/dL (112-347) 03/16/22 02:58 Ferritin 288 ng/mL (15-150) H 03/16/22 02:58 Total Bilirubin 0.2 mg/dL (0.15-1.2) 03/21/22 04:00 AST 19 U/L (0-32) 03/21/22 04:00 ALT 7 U/L (0-33) 03/21/22 04:00 Alkaline Phosphatase 126 U/L (35-105) H 03/21/22 04:00 Creatine Kinase 52 U/L (26-192) 03/16/22 02:58 C-Reactive Protein 207.3 mg/L (0.0-4.9) H 03/16/22 02:58 Total Protein 6.3 g/dL (6.6-8.7) L 03/21/22 04:00 Albumin 2.6 g/dL (3.5-5.2) L 03/21/22 04:00 Globulin 3.7 g/dL (1.3-4.6) 03/21/22 04:00 Triglycerides 180 mg/dL (0-150) H 03/20/22 03:55 Cholesterol 93 mg/dL (0-200) 03/20/22 03:55 LDL Cholesterol, Calc 39 mg/dL (50-129) L 03/20/22 03:55 Total VLDL Cholesterol 36 mg/dL (0-30) H 03/20/22 03:55 HDL Cholesterol 18 mg/dL (60-100) L 03/20/22 03:55 Cholesterol/HDL Ratio 5.17 mg/dL (0.0-4.40) H 03/20/22 03:55 Lipase 19 U/L (13-60) 03/15/22 22:07 Vitamin B12 452 pg/mL (232-1245) 03/16/22 02:58 Folate 8.5 ng/mL (4.8-37.3) 03/16/22 10:25 Procalcitonin 17.04 ng/mL (0-0.5) H 03/19/22 07:55 TSH 2.63 uIU/mL (0.27-4.20) 03/19/22 07:55 Urine Color Yellow (Yellow) 03/15/22 23:55 Urine Appearance Cloudy (CLEAR) A 03/15/22 23:55 Urine pH 5 (5-7) 03/15/22 23:55 Ur Specific [place] 1.015 (1.005-1.030) 03/15/22 23:55 Urine Protein 1+ (Negative) H 03/15/22 23:55 Urine Glucose (UA) Norm (Normal) 03/15/22 23:55 Urine Ketones Negative (Negative) 03/15/22 23:55 Urine Blood 3+ (Negative) H 03/15/22 23:55 Urine Nitrate Negative (Negative) 03/15/22 23:55 Urine Bilirubin Neg (Negative) 03/15/22 23:55 Urine Urobilinogen Norm mg/dL (Negative) 03/15/22 23:55 Ur Leukocyte Esterase 2+ (Negative) H 03/15/22 23:55 Urine RBC 0-4 /hpf (0-2) H 03/15/22 23:55 Urine WBC Too numerous to cnt /hpf (0-5) H 03/15/22 23:55 Ur Squamous Epith Cells 0-4 /hpf (0-5) H 03/15/22 23:55 Amorphous Sediment Not Reportable 03/15/22 23:55 Urine Bacteria 4+ /hpf (NONE) H 03/15/22 23:55 Influenza Type A Ag negative (Negative) 03/15/22 22:44 Influenza Type B Ag negative (Negative) 03/15/22 22:44 SARS-CoV-2 Ag (Rapid) negative (Negative) 03/15/22 22:44 Vitals Last Vital Signs Temp 97.9 F 03/21/22 12:00 Pulse 75 03/21/22 12:00 Resp 18 03/21/22 08:00 BP 171/88 03/21/22 12:00 Pulse Ox 98 03/21/22 12:00 O2 Del Method 03/21/22 04:00 O2 Flow Rate 1.5 03/21/22 08:00 Discharge Plan Discharge Patient Disposition: Home Condition: Stable Prescriptions: New tramadol 50 mg Tablet 50 mg PO Q6H PRN (Reason: Moderate Pain) Qty: 10 0RF amlodipine 5 mg Tablet 10 mg PO DAILY 30 Days Qty: 60 0RF cefuroxime axetil 500 mg tablet 500 mg PO Q12H 3 Days Qty: 6 0RF tamsulosin 0.4 mg Capsule 0.4 mg PO DAILY 30 Days Qty: 30 0RF Continued hydrocortisone 2.5 % cream 1 applic TOPICAL BID PRN (Reason: allergic reaction) Qty: 453.6 0RF Rx Instructions: Apply twice daily to affected area and abdominal fold no more than 2 weeks/month levothyroxine [Synthroid] 88 mcg tablet 88 mcg PO DAILY lisinopril 5 mg tablet 5 mg PO DAILY Januvia 100 mg tablet 100 mg PO DAILY ibuprofen 200 mg capsule 200 mg PO Q6H PRN (Reason: Pain) aspirin [Adult Aspirin Regimen] 81 mg tablet,delayed release (DR/EC) 81 mg PO DAILY glyburide 2.5 mg tablet 2.5 mg PO BID simvastatin 10 mg tablet 10 mg PO DAILY Discharge Orders: Discharge Order (Routine); Ordered 03/21/22 Ordered By: Aj Miller Other Ambulatory Orders: DME: Miscellaneous (Order) Location: None Selected Ordered By: Aj Miller [place] [facility] [place] Celia Louis MD [Primary Care Provider] - 7-10 days Kwaku Gold MD [Hospitalist] - 2 weeks Discharge Diet: Regular Discharge Activity: Resume usual activity and Increase activity as tolerated Patient Instructions: Anemia, Acute Kidney Injury (DC), Opioid Safety Activity Restrictions/Additional Instructions: Please continue taking antibiotics for next 3 days. You will take antibiotics morning and evening. Please check your blood pressure daily at home and maintain a blood pressure diary and follow-up with a primary care provider within next 10 days for further adjustment of antihypertensives as needed. Please follow-up with oncology and set appointment for further work-up of extensive lymphadenopathy with a high concern of lymphoma recurrence. Please continue with physical therapy as discussed in detail. Discharge Attestations Time Spent in Discharge Care*: greater than 30 min Specific Discharge Activities: educating patient, discussing with pcp/other providers, discussing with onsite case manager/social workers/dc planners, documenting/other paperwork and evaluating patient/reviewing data Status at Discharge: Cognitive status at discharge: cognitively intact, Behavioral status at discharge: cooperative, Functional status at discharge: independent ambulation, Overall status at discharge: patient is back to baseline Quality Metrics Clinical Quality Measures [ No reported AMI, CVA or VTE this stay] Coding Level of Care Code Acute Chg FW DC note Diagnoses Sepsis A41.9 Acute cystitis N30.00 Acute metabolic encephalopathy G93.41 Acute kidney injury N17.9 Diabetes E11.9 Lymphoma C85.90 Anemia D64.9 Metabolic acidosis E87.20 Hypomagnesemia E83.42
[2022-03-21 16:00] VITALS: BP 161/81; PULSE 83; RESP 17; TEMP 36.5; O2SAT 98
[2022-03-21 17:23] LABS: Glucose Point of Care 139 mg/dL (70-110)
== END 2022-03-21 18:45 | disposition home or self-care (01) | DRG 871 ==
LOC: ER 03-16 00:29 → MEDSURG 03-16 01:11
PROVIDERS: Internal Medicine; Admitting Provider Internal Medicine; Emergency Provider Emergency Medicine; PCP Family Medicine; Visit Provider Student in an Organized Health Care Education/Training Program
DX: A41.9 Sepsis, unspecified organism (principal); G93.41 Metabolic encephalopathy; N30.00 Acute cystitis without hematuria; N17.9 Acute kidney failure, unspecified; E87.20 Acidosis, unspecified; Z68.41 Body mass index [BMI] 40.0-44.9, adult; E11.9 Type 2 diabetes mellitus without complications; Z85.72 Personal history of non-Hodgkin lymphomas; D50.9 Iron deficiency anemia, unspecified; E83.42 Hypomagnesemia; B96.20 Unspecified Escherichia coli [E. coli] as the cause of diseases classified elsewhere; R33.9 Retention of urine, unspecified; Z79.82 Long term (current) use of aspirin; Z66 Do not resuscitate; Z87.891 Personal history of nicotine dependence; E66.01 Morbid (severe) obesity due to excess calories; I10 Essential (primary) hypertension; D63.8 Anemia in other chronic diseases classified elsewhere
CPT/HCPCS: 36415; 36416; 51702; 51798; 70450; 71045; 71250; 72125; 73521; 74176; 80048; 80053; 80061; 81001; 82274; 82550; 82607; 82728; 82746; 82962; 83036; 83540; 83550; 83605; 83690; 83735; 84145; 84443; 85007; 85025; 85378; 85610; 86140; 87040; 87077; 87086; 87186; 87426; 87493; 87804; 96365; 96367; 96372; 97161; 97530; 99285; J0456; J0696; J1644; J1756; J1815; J2185; J2270; J2405; J2543; J2765; J3475; J7030; J7050; J7120

== ENCOUNTER → 2022-04-30 09:28 | Outpatient (BNVA) | payer MEDICARE, SELFPAY | PROVIDERS: PCP Family Medicine; Visit Provider Podiatrist Foot & Ankle Surgery | DX: E11.9 Type 2 diabetes mellitus without complications (principal); M20.41 Other hammer toe(s) (acquired), right foot; M20.42 Other hammer toe(s) (acquired), left foot; B35.1 Tinea unguium; G62.9 Polyneuropathy, unspecified; R60.9 Edema, unspecified; M20.5X1 Other deformities of toe(s) (acquired), right foot | CPT/HCPCS: 11721; 99204 ==

== ENCOUNTER 2022-05-11 13:16 | Emergency (ER) | payer MEDICARE, SELFPAY ==
[2022-05-11 13:17] VITALS: BP 208/129; PULSE 83; RESP 14; TEMP 39; O2SAT 97; BMI 41.8
--- NOTE | 2022-05-11 13:18 | ED_ITS ---
HPI - Chest Pain General: Chief Complaint: Chest Pain Stated Complaint: CHEST PAIN Time Seen by Provider: 05/11/22 13:17 History of Present Illness: Ms. Brush is a 67-year-old lady with history of recurrent UTI, hypertension, hyperlipidemia, diabetes, thyroid disorder, obesity presenting to the emergency department for chest discomfort. She reports recent history of recurrent UTI and had cystoscopy and was started on Bactrim yesterday at outside facility. She developed chills this morning and subsequently developed chest pain. She notes generalized malaise and moderate intensity symptoms. She currently has mild symptoms. She does endorse possible blood in her stool as well. No other specific changes in health, exacerbating, or alleviating factors identified. Onset (ago): hour(s) Timing of current episode: constant Onset: during rest Pain location: substernal Pain radiation: right arm Severity: moderate Quality: tightness, aching and heaviness Relieving factors: nothing Exacerbating factors: nothing Context: recent illness Associated symptoms: Reports abdominal pain and dyspnea Review of Systems General: Reports: 10 or more systems reviewed and unremarkable except in HPI and below Resp: Reports: dyspnea GI: Reports: abdominal pain PFSH ED PFSH: Medical History Arthritis Diabetes History of nonmelanoma skin cancer Hodgkin lymphoma Lymphoma Thyroid disease Surgical History H/O: hysterectomy Family History Mother Diabetes Other Cancer Social History Smoking and tobacco status: former smoker Alcohol intake: never Physical Exam Const: COMMON NORMALS: alert GENERAL APPEARANCE: cooperative, well developed and ill appearing HENMT: COMMON NORMALS: normocephalic and atraumatic HEAD & SCALP: normocephalic and atraumatic Eye: COMMON NORMALS: conjunctivae normal CONJUNCTIVA: Yes conjunctivae normal SCLERA: sclerae normal Neck/C-Spine: COMMON NORMALS: supple GENERAL: Yes trachea midline Resp: COMMON NORMALS: clear to auscultation bilaterally EFFORT & INSPECTION: Yes tachypneic AUSCULTATION: clear to auscultation bilaterally Cardio: COMMON NORMALS: regular rate and regular rhythm RATE: regular rate RHYTHM: regular rhythm GI: COMMON NORMALS: Soft to palpation PALPATION: Yes Soft to palpation and No Tenderness to palpation present (GI) Extremity: GENERAL: Yes normal exam except as noted and No edema Neuro: COMMON NORMALS: moves all extremities SENSORIUM/ORIENTATION: Yes alert and No Orientation impaired Psych: COMMON NORMALS: mental status grossly normal and Normal thought process present THOUGHT PROCESS: Normal thought process present Course Vital Signs: Vital signs: Vital Signs Temperature 99.7 F H 05/11/22 14:27 Pulse Rate 71 05/11/22 16:30 Respiratory Rate 16 05/11/22 13:46 Blood Pressure 148/51 05/11/22 16:30 Pulse Oximetry 94 05/11/22 17:30 Oxygen Delivery Me thod 05/11/22 16:30 MDM - Chest Pain Medical Decision Making 67-year-old lady presenting with chest pain and generalized illness. Exam as above. She is nontoxic appearance. EKG shows sinus rhythm with nonspecific ST segment abnormalities, left axis deviation, right bundle branch block. No STEMI. Hematologic improvement prior with no leukocytosis and normalization of hemoglobin. Metabolic panel similar to prior without acute electrolyte treatment. Negative range 2-hour delta troponin. D-dimer is elevated. Hematuria present without UTI. COVID is negative. Chest x-ray with no lobar consolidation or pneumothorax. CTA demonstrates no PE, there are new pulmonary nodules and bilateral pulmonary groundglass opacities. Abdomen with left hydroureteronephrosis without clear etiology. I discussed all the studies with the patient, she is planned for cystoscopy under anesthesia and understands need for further urologic evaluation and other evaluation. Patient feels improved with fluids, steroids, Tylenol. At rest, multiple times, I directly observe the patient desaturating on room air. She required supplemental oxygen. The exact etiology of patient's symptoms is unclear. Patient has pneumonitis which may be secondary to new CPAP machine or Bactrim that she has had Bactrim before without issues. Case discussed with pulmonology. I offered patient admission but she declined. I explained other possible etiologies of symptoms. The results of ED evaluation were discussed with the patient including possible disposition options. I discussed risk stratification by heart score and est imated risk of major adverse cardiac events. The patient wishes to proceed with outpatient management. I discussed prescriptions and/or symptomatic cares (if applicable) including appropriate and responsible use, followup plan, and return precautions. The patient verbalized understanding and felt safe for discharge. Medical Records I reviewed the patient's medical records. Lab Data I reviewed the patient's lab results. 05/11/22 13:27 05/11/22 13:27 Radiology Impressions Chest X-Ray 05/11/22 13:33 Impression: Atherosclerosis. Chest/Abdomen/Pelvis CT 05/11/22 14:04 IMPRESSION: 1. Bilateral pulmonary groundglass opacifications with sparing of the carmen phery. Likely hypersensitivity pneumonitis. 2. New subcentimeter pulmonary nodules. New since 03/16/2022. 3. Mesenteric and retroperitoneal lymphadenopathy. 4. A cluster of lymph nodes in the central mesentery consistent with a history of lymphoma. Not obviously progressed since 03/16/2022. 5. Mild LEFT hydroureteronephrosis. In the distal ureter there is an area of enhancement and soft tissue thickening. There are also adjacent calcifications. Distal LEFT ureter needs to be evaluated for possible neoplasm causing the obstruction. Differential would include hemorrhage and superimposed stones. Increased density and soft tissue the distal ureter are new since the prior study. 6. Small amount of air in the urinary bladder. May be from recent catheterization. 7. Hepatomegaly. 8. No central pulmonary emboli. Laboratory Results WBC 7.6 10^3/uL (4.0-10.0) 05/11/22 13: RBC 4.11 10^6/uL (4.1-5.3) 05/11/22 13:27 Hgb 11.5 g/dL (11.5-15.3) 05/11/22 13: Hct 36.6 % (37.0-47.0) L 05/11/22 13:27 MCV 89.1 fl (81-99) 05/11/22 13:27 MCH 28.0 pg (28.0-34.0) 05/11/22 13: MCHC 31.4 g/dL (30.0-36.0) 05/11/22 13:27 RDW 17.7 % (12.1-15.1) H 05/11/22 13:27 Plt Count 190 10^3/cmm (130-400) 05/11/22 13:27 MPV 11.4 fL (7.4-10.4) H 05/11/22 13:27 Neut % (Auto) 72.8 % 05/11/22 13:27 Lymph % (Auto) 12.4 % 05/11/22 13:27 [place] % (Auto) 10.1 % 05/11/22 13:27 Eos % (Auto) 2.4 % 05/11/22 13:27 Baso % (Auto) 0.3 % 05/11/22 13:27 Neut # (Auto) 5.55 10^3/uL (1.8-7.7) 05/11/22 13:27 Lymph # (Auto) 0.9 10^3/uL (0.8-4.8) 05/11/22 13:27 Perkins # (Auto) 0.8 10^3/uL (0.2-0.9) 05/11/22 13:27 Eos # (Auto) 0.2 10^3/uL (0.0-0.8) 05/11/22 13:27 Baso # (Auto) 0.0 10^3/uL (0.0-0.1) 05/11/22 13:27 Nucleated RBC % (auto) 0 % 05/11/22 13:27 Nucleated RBCs # 0.0 /100WBC 05/11/22 13:27 D-Dimer 2.40 ug/mIFEU (0-0.59) H 05/11/22 13:27 Sodium 144 mmol/L (136-145) 05/11/22 13:27 Potassium 3.6 mmol/L (3.5-5.1) 05/11/22 13:27 Chloride 103 mmol/L (98-107) 05/11/22 13:27 Carbon Dioxide 27 mmol/L (22-29) 05/11/22 13:27 Anion Gap 17.6 (5-19) 05/11/22 13:27 BUN 11 mg/dL (8-23) 05/11/22 13:27 Creatinine 1.1 mg/dL (0.5-0.9) H 05/11/22 13:27 GFR Calculation 49.2 mL/min (90-130) L 05/11/22 13:27 Glucose 134 mg/dL (65-115) H 05/11/22 13:27 Calculated Osmolality 299 mOsm/kg (285-295) H 05/11/22 13:27 Lactic Acid 3.2 mmol/L (0.5-2.2) H 05/11/22 14:00 Calcium 9.1 mg/dL (8.5-10.5) 05/11/22 13:27 Total Bilirubin 0.4 mg/dL (0.15-1.2) 05/11/22 13:27 AST 15 U/L (0-32) 05/11/22 13:27 ALT 6 U/L (0-33) 05/11/22 13:27 Alkaline Phosphatase 102 U/L (35-105) 05/11/22 13:27 Troponin T Baseline 16 ng/L (0-10) H 05/11/22 13:27 Troponin T 120 Minute 18.23 ng/L (0-10) H 05/11/22 15:33 Delta Troponin T 2.23 ABS# (0-10) 05/11/22 15:33 C-Reactive Protein 23.5 mg/L (0.0-4.9) H 05/11/22 13:27 NT-Pro-B Natriuret Pep 1014 pg/mL (0-125) H 05/11/22 13:27 Total Protein 7.8 g/dL (6.6-8.7) 05/11/22 13:27 Albumin 4.1 g/dL (3.5-5.2) 05/11/22 13:27 Globulin 3.7 g/dL (1.3-4.6) 05/11/22 13:27 Lipase 34 U/L (13-60) 05/11/22 13:27 Procalcitonin 0.12 ng/mL (0-0.5) 05/11/22 13:27 Urine Color Yellow (Yellow) 05/11/22 13:36 Urine Appearance Clear (CLEAR) 05/11/22 13:36 Urine pH 7 (5-7) 05/11/22 13:36 Ur Specific [place] 1.005 (1.005-1.030) 05/11/22 13:36 Urine Protein 1+ (Negative) H 05/11/22 13:36 Urine Glucose (UA) Norm (Normal) 05/11/22 13:36 Urine Ketones Negative (Negative) 05/11/22 13:36 Urine Blood 3+ (Negative) H 05/11/22 13:36 Urine Nitrate Negative (Negative) 05/11/22 13:36 Urine Bilirubin Neg (Negative) 05/11/22 13:36 Urine Urobilinogen Norm mg/dL (Negative) 05/11/22 13:36 Ur Leukocyte Esterase Trace (Negative) H 05/11/22 13:36 Urine RBC 40-50 /hpf (0-2) H 05/11/22 13:36 Urine WBC 0-4 /hpf (0-5) H 05/11/22 13:36 Ur Squamous Epith Cells 0-4 /hpf (0-5) H 05/11/22 13:36 Amorphous Sediment Not Reportable 05/11/22 13:36 Urine Bacteria Trace /hpf (NONE) 05/11/22 13:36 Coronavirus 229E (PCR) Not detected (NOT DETECT) 05/11/22 13:36 SARS-CoV-2 (PCR) Not detected (NOT DETECT) 05/11/22 13:36 Discharge Plan Discharge Patient Disposition: Home Clinical Impression: Chest pain, Hypersensitivity pneumonitis, Hypoxia, Hydroureteronephrosis Condition: Stable Prescriptions: New prednisone 10 mg tablet See Taper PO DIRECTED Qty: 42 0RF Taper: predniSONE 60-10 60 mg Daily for 2 Days and 0 Hour 50 mg Daily for 2 Days and 0 Hour 40 mg Daily for 2 Days and 0 Hour 30 mg Daily for 2 Days and 0 Hour 20 mg Daily for 2 Days and 0 Hour 10 mg Daily for 2 Days and 0 Hour Rx Instructions: TAPER: 60 mg daily for 2 Days; 50 mg for 2 Days; 40 mg for 2 Days; 30 mg for 2 Days; 20 mg for 2 Days; 10 mg for 2 Days No Action levothyroxine [Synthroid] 88 mcg tablet 88 mcg PO DAILY Januvia 100 mg tablet 100 mg PO DAILY aspirin [Adult Aspirin Regimen] 81 mg tablet,delayed release (DR/EC) 81 mg PO DAILY glyburide 2.5 mg tablet 2.5 mg PO BID metoprolol succinate 50 mg tablet extended release 24 hr 50 mg PO DAILY tamsulosin 0.4 mg capsule 0.4 mg PO DAILY (DME) Diabetic shoes and 3 pairs of inserts See Rx Instructions .Route .MEDSUPPLY Qty: 1 0RF Rx Instructions: As directed HOME simvastatin 10 mg tablet 10 mg PO DAILY lisinopril 10 mg tablet 10 mg PO DAILY Discharge Orders: Discharge ED (Routine); Ordered 05/11/22 Ordered By: Rosalino Lundberg Other Ambulatory Orders: DME: Oxygen (Order) Location: None Selected Ordered By: Rosalino Lundberg Referrals: Celia Louis MD [Primary Care Provider] - Discharge Diet: Usual diet Discharge Activity: Increase activity as tolerated Patient Instructions: Chest Pain (ED), Pneumonitis (ED), Using Oxygen at Home (ED) Activity Restrictions/Additional Instructions: Thank you for visiting the emergency department. You were seen and evaluated for chest pain and respiratory symptoms as well as generalized illness. The exact cause of your symptoms is unclear. As discussed you were found to have a pneumonitis which may be inflammatory in nature and will be treated with steroids. I will message case management for further outpatient cardiac testing as well as follow-up with pulmonology. Please follow-up with your primary care provider. Return to the emergency department for worsening symptoms, oxygen saturation less than 90% despite home oxygen use, or anything else that you are concerned about and feels emergency department evaluation. Coding Level of Care Code ED Intelligence Intern for Mykel Vitale
--- NOTE | 2022-05-11 13:32 | ECG_ITS ---
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 Measurements Intervals [place] Rate: 78 P: 0 [place]: 0 QRS: -80 QRSD: 160 T: 29 QT: 430 QTc: 493 Interpretive Statements SINUS RHYTHM LEFT AXIS DEVIATION [QRS AXIS < -30] RIGHT BUNDLE BRANCH BLOCK [120+ ms QRS DURATION, UPRIGHT V1, 40+ ms S IN I/aVL/V4/V5/V6] No previous ECG available for comparison Electronically Signed On 05-11-2022 16:44:38 REIMBURSEMENT SPECIALIST by Zora Barcenas M.D. [id number]
--- NOTE | 2022-05-11 13:32 | PC.NURSE ---
pt on bedside personnel monitor
--- NOTE | 2022-05-11 13:33 | XR_ITS ---
WS: [id number] Portable AP upright chest, 05/11/2022 Clinical Data: cp Comparison: Portable chest, 03/15/2022 Findings: No nodules, masses or effusions are seen. The heart is normal. The pulmonary vascularity is not increased. No pneumonia or pneumothorax is seen. The aortic arch and descending thoracic aorta s how minimal calcification and tortuosity. There are monitor leads on the chest wall. XR/XR chest 1V portable [id number] Impression: Atherosclerosis.
[2022-05-11 13:46] VITALS: BP 196/58; PULSE 84; RESP 16; O2SAT 96
[2022-05-11 13:47] LABS: Basophils % 0.3 %; Eosinophils # 0.2 10^3/uL (0.0-0.8); Eosinophils % 2.4 %; Hematocrit 36.6 % (37.0-47.0); Hemoglobin 11.5 g/dL (11.5-15.3); Lymphocytes # 0.9 10^3/uL (0.8-4.8); Lymphocytes % 12.4 %; Mean Corpuscular HGB Conc 31.4 g/dL (30.0-36.0); Mean Corpuscular Volume 89.1 fl (81-99); Mean Platelet Volume 11.4 fL (7.4-10.4); Monocytes # 0.8 10^3/uL (0.2-0.9); Monocytes % 10.1 %; Neutrophils # 5.55 10^3/uL (1.8-7.7); Neutrophils % 72.8 %; Nucleated Red Blood Cells % 0 %; Platelet Count 190 10^3/cmm (130-400); Red Blood Count 4.11 10^6/uL (4.1-5.3); Red Cell Distribution Width 17.7 % (12.1-15.1); White Blood Count 7.6 10^3/uL (4.0-10.0)
[2022-05-11] MEDS: acetaminophen 500 mg Tablet 1000 MG PO (13:50)
[2022-05-11 14:01] LABS: Troponin(5th) Baseline 16 ng/L (0-10)
--- NOTE | 2022-05-11 14:04 | CT_ITS ---
WS: [id number] CTA CHEST WITH CT ABDOMEN AND PELVIS. HISTORY: Substernal chest pain radiating to bilateral arms. TECHNIQUE: CT angiogram is performed through the chest. Additional imaging is performed through the a bdomen and pelvis with IV contrast. Sagittal and coronal reformats have been submitted. MIP imaging also reviewed. All CT scans at [facility] use at least one of these dose optimization techniqu es: automated exposure control; mA and/or kV adjustment per patient size (includes targeted exams whe re dose is matched to clinical indication); or iterative reconstruction. Contrast: Omnipaque 350; 100 cc IV. DLP: 1655.08 mGy.cm COMPARISON: 03/16/2022 Chest CTA: Adequate opacification of the pulmonary arteries. No filling defects are identified. Beyon d the segmental branches the opacification is limited. Mild dilated pulmonary artery. Mild atheroscle rosis aorta with no dissection or aneurysm. Mild cardiomegaly. No significant adenopathy. Bilateral pulmonary groundglass opacifications with mild sparing of the periphery of the lungs. Progr essed since 03/16/2022. Bilateral lower lobe pulmonary nodules. The largest measures 8 mm at the RIGHT lung base. Additional nodules along the LEFT major fissure. Lobulated based nodule central RIGHT lung. No pleural or perica rdial effusions. Abdomen CT: Liver is enlarged with no mass. No bile duct dilatation. Prior cholecystectomy. Normal si ze spleen. Normal pancreas. Negative adrenal glands. Normal portal vein. Mild atherosclerosis aorta w ith no aneurysm. Previously described RIGHT hydronephrosis and perinephric stranding has resolved. Mi ld hydronephrosis LEFT kidney and hydroureter. There is widening and increased density in the distal LEFT ureter. There are also adjacent calcifications. Distal LEFT ureter is obscured partially by beam hardening artifact by body habitus. There are a few small calcifications in the distal ureter. Normal stomach. No small bowel obstruction. No appendicitis. No colon obstruction. Numerous small scattered lymph nodes. Subcentimeter lymph nodes anterior to the heart. There are scat tered mesenteric, aortocaval and precaval lymph nodes identified. Small para-aortic lymph nodes. In t he central mesentery there is soft tissue mass which is ill-defined measuring 4.8 x 3.3 cm. There are adjacent satellite areas of mesenteric soft tissue very suspicious for lymphoma. Haziness throughout the mesentery. These findings were also described on 03/16/2022. Pelvic CT: Urinary bladder is distended and contains a small amount of air. No Mijares catheter is evid ent. Prior hysterectomy. View soft tissue nodules may be injection sites over the lower abdomen. CT/CT angio chest w abd pel w con IMPRESSION: 1. Bilateral pulmonary groundglass opacifications with sparing of the peripher y. Likely hypersensitivity pneumonitis. 2. New subcentimeter pulmonary nodules. New since 03/16/2022. 3. Mesenteric and retroperitoneal lymphadenopathy. 4. A cluster of lymph nodes in the central mesentery consistent with a history of lymphoma. Not obviously progressed since 03/16/2022. 5. Mild LEFT hydroureteronephrosis. In the distal ureter there is an area of e nhancement and soft tissue thickening. There are also adjacent calcifications. Distal LEFT ureter needs to be evaluated for possible neoplasm causing the obst ruction. Differential would include hemorrhage and superimposed stones. Increas ed density and soft tissue the distal ureter are new since the prior study. 6. Small amount of air in the urinary bladder. May be from recent catheterizat ion. 7. Hepatomegaly. 8. No central pulmonary emboli.
[2022-05-11 14:06] LABS: Bilirubin Urine Neg (Negative); Blood Urine 3+ (Negative); Glucose Urine UA Norm (Normal); Ketones Urine Negative (Negative); Leukocyte Esterase Urine Trace (Negative); Nitrate Urine Negative (Negative); Protein Urine 1+ (Negative); Specific Gravity, Urine 1.005 (1.005-1.030); Urine Appearance Clear (CLEAR); Urine Color Yellow (Yellow); Urobilinogen Urine Norm (Negative); pH Urine 7 (5-7)
[2022-05-11 14:07] LABS: Add Urine Microscopic? YES; Bacteria Urine TRACE /hpf; RBC Urine 40-50 /hpf (0-2); Squamous Epithelial Cell Urine 0-4 /hpf (0-5); WBC Urine 0-4 /hpf (0-5)
[2022-05-11 14:08] LABS: Add Urine Culture? Yes
[2022-05-11 14:10] LABS: Alanine Aminotransferase 6 U/L (0-33); Albumin Level 4.1 g/dL (3.5-5.2); Alkaline Phosphatase 102 U/L (35-105); Anion Gap 17.6 (5-19); Aspartate Amino Transferase 15 U/L (0-32); Blood Urea Nitrogen 11 mg/dL (8-23); Calcium 9.1 mg/dL (8.5-10.5); Carbon Dioxide 27 mmol/L (22-29); Chloride 103 mmol/L (98-107); Globulin 3.7 g/dL (1.3-4.6); Glomerular Filtration Rate 49.2 mL/min (90-130); Glucose 134 mg/dL (65-115); Lipase 34 U/L (13-60); NT Pro B Type Natriuretic Pept 1014 pg/mL (0-125); Osmolality Calculated 299 mOsm/kg (285-295); Potassium 3.6 mmol/L (3.5-5.1); Sodium 144 mmol/L (136-145); Total Bilirubin 0.4 mg/dL (0.15-1.2); Total Protein 7.8 g/dL (6.6-8.7)
[2022-05-11 14:27] VITALS: TEMP 37.6
[2022-05-11 14:30] VITALS: BP 150/50; PULSE 72; O2SAT 95
[2022-05-11 14:43] LABS: Lactic Sepsis W/Reflex 3.2 mmol/L (0.5-2.2)
[2022-05-11] MEDS: sodium chloride 0.9% 500 ML 999 ML IV (15:15)
--- NOTE | 2022-05-11 15:33 | ECG_ITS ---
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 Measurements Intervals [place] Rate: 72 P: 0 NE: 0 QRS: -81 QRSD: 160 T: 3 QT: 348 QTc: 382 Interpretive Statements UNCERTAIN IRREGULAR RHYTHM RIGHT BUNDLE BRANCH BLOCK [120+ ms QRS DURATION, UPRIGHT V1, 40+ ms S IN I/aVL/V4/V5/V6] INFERIOR MYOCARDIAL INFARCTION , PROBABLY OLD [40+ ms Q WAVE AND/OR ST/T ABNORMALITY IN II/aVF] Compared to ECG 05/11/2022 13:32:40 Myocardial infarct finding now present Left-axis deviation no longer present Electronically Signed On 05-11-2022 23:21:24 WATER TREATMENT TECHNICIAN by Zora Barcenas M.D. [id number]
[2022-05-11 15:37] LABS: Adenovirus Not Detected (NOT DETECT); Chlamydia Pneumoniae Not Detected (NOT DETECT); Coronavirus 229E,HKU1,NL63,OC4 Not Detected (NOT DETECT); Human Metapneumovirus Not Detected (NOT DETECT); Human Rhinovirus/Enterovirus Not Detected (NOT DETECT); Influenza A Not Detected (NOT DETECT); Influenza A H1 Not Detected (NOT DETECT); Influenza A H1-2009 Not Detected (NOT DETECT); Influenza A H3 Not Detected (NOT DETECT); Influenza B Not Detected (NOT DETECT); Mycoplasma Pneumoniae Not Detected (NOT DETECT); Parainfluenza Virus Type 1 Not Detected (NOT DETECT); Parainfluenza Virus Type 2 Not Detected (NOT DETECT); Parainfluenza Virus Type 3 Not Detected (NOT DETECT); Parainfluenza Virus Type 4 Not Detected (NOT DETECT); Respiratory Syncytial Virus A Not Detected (NOT DETECT); Respiratory Syncytial Virus B Not Detected (NOT DETECT); SARS-COV-2 Not Detected (NOT DETECT)
[2022-05-11 15:43] LABS: C Reactive Protein 23.5 mg/L (0.0-4.9)
[2022-05-11 15:46] LABS: Procalcitonin 0.12 ng/mL (0-0.5)
[2022-05-11 16:00] LABS: Troponin 5 2HR 18.23 ng/L (0-10)
[2022-05-11 16:03] LABS: Troponin 5 2HR Delta 2.23 ABS# (0-10)
[2022-05-11 16:12] LABS: Reflex Lactate Order REFLEX LACTIC ORDERD
[2022-05-11 16:30] VITALS: BP 148/51; PULSE 71; O2SAT 98
[2022-05-11 17:30] VITALS: O2SAT 90; O2SAT 94
--- NOTE | 2022-05-14 12:54 | DCPLANNER ---
Addendum entered by Flor Armenta 06/27/22 14:57: This appointment was cancelled Addendum entered by Flor Armenta 05/17/22 08:51: Patient has a follow up appointment scheduled for Wednesday, June 22, 2022 at 11:[address] Hay at [facility]. Clinic will call patient with appointment information. Original Note: accounting advisory services manager had message to schedule a follow up appointment for patient with pulmonology. accounting advisory services manager sent patients information to the front office staff at [facility]. Patients information will be printed and reviewed. Clinic will call patient with appointment information.
--- NOTE | 2022-05-15 09:00 | DCPLANNER ---
Addendum entered by Flor Armenta 06/19/22 07:46: These appointments were cancelled Addendum entered by Flor Armenta 06/06/22 15:28: Patient has an appointment for Saturday June 18, 2022 at 4:15 Addendum entered by Flor Armenta 06/06/22 15:27: Patient has a stress test scheduled for Sunday, June 26, 2022 at 8:15. Original Note: senior site manager had message to schedule an outpatient stress test for patient. senior site manager faxed signed order to centralized scheduling, who will call patient with appointment information.
== END 2022-05-11 18:08 | disposition home or self-care (01) ==
PROVIDERS: Emergency Provider Emergency Medicine; PCP Family Medicine
DX: R07.9 Chest pain, unspecified (principal); J67.9 Hypersensitivity pneumonitis due to unspecified organic dust; R09.02 Hypoxemia; N13.30 Unspecified hydronephrosis; Z79.82 Long term (current) use of aspirin; Z79.84 Long term (current) use of oral hypoglycemic drugs; Z20.822 Contact with and (suspected) exposure to COVID-19; R16.0 Hepatomegaly, not elsewhere classified; E11.9 Type 2 diabetes mellitus without complications; Z85.71 Personal history of Hodgkin lymphoma; Z87.891 Personal history of nicotine dependence
CPT/HCPCS: 36415; 71045; 71275; 74177; 80053; 81001; 83605; 83690; 83880; 84145; 84484; 85025; 85378; 86140; 87040; 87086; 87635; 93005; 96374; 99285; J2930; J7040; Q9967

== ENCOUNTER 2022-10-16 20:00 | Outpatient (CLI) | payer OTHER, SELFPAY | END 2022-10-16 20:01 | disposition home or self-care (01) | LOC: SLEEP 10-17 06:18 | PROVIDERS: PCP Family Medicine; Visit Provider Family Medicine | DX: G47.10 Hypersomnia, unspecified (principal) | CPT/HCPCS: 95811 ==

== ENCOUNTER 2022-12-27 09:02 | Outpatient (CLI) | payer OTHER, SELFPAY ==
[2022-12-27 09:28] LABS: Blood Urea Nitrogen 25 mg/dL (8-23); Calcium 8.1 mg/dL (8.5-10.5); Carbon Dioxide 22 mmol/L (22-29); Chloride 105 mmol/L (98-107); Glomerular Filtration Rate 27.9 mL/min (90-130); Glucose 363 mg/dL (65-115); Osmolality Calculated 309 mOsm/kg (285-295); Sodium 140 mmol/L (136-145)
== END 2022-12-27 09:03 | disposition home or self-care (01) ==
PROVIDERS: PCP Family Medicine; Visit Provider Physician Assistant
DX: N18.32 Chronic kidney disease, stage 3b (principal)
CPT/HCPCS: 80048

== ENCOUNTER 2023-01-16 10:07 | Outpatient (CLI) | payer OTHER, SELFPAY ==
--- NOTE | 2023-01-16 10:15 | MM_ITS ---
WS: [id number] VIEWS: MLO and CC views both breasts. 3D digital tomosynthesis is also included in this exam. Comparison made with prior exam of 08/15/2012, 04/24/2016, 04/13/2020, 07/26/2021.. Findings: There was no sign of mass, architectural distortion or suspicious calcification in either breast. Sta ble appearing nodular densities in both breasts. The breasts are almost entirely fatty. Impression: MM/[place] [id number] BI-RADS: 1-Negative FOLLOW-UP: 1 Year Follow-up This mammogram was also analyzed by the Computer Aided Detection System R2 Imag e Mold Maker Plaster.
== END 2023-01-16 10:08 | disposition home or self-care (01) ==
PROVIDERS: PCP Family Medicine; Visit Provider Physician Assistant
DX: Z12.31 Encounter for screening mammogram for malignant neoplasm of breast (principal)
CPT/HCPCS: 77063; 77067

== ENCOUNTER 2023-04-12 06:45 | Observation (INO) | payer MEDICARE, SELFPAY ==
[2023-04-12] VITALS (13 sets, daily range): BP systolic 109–175; BP diastolic 58–93; PULSE 64–80; RESP 16–18; TEMP 36.6–36.7; O2SAT 92–100; BMI 38.9
[2023-04-12 06:55] LABS: Glucose Point of Care 120 mg/dL (70-110)
--- NOTE | 2023-04-12 06:56 | CTR_ITS ---
PROCEDURE INFORMATION: Exam: CT Head Without Contrast Exam date and time: 04/12/2023 6:54 AM Age: 67 years old Clinical indication: Stroke-like symptoms; Other: Weakness; Additional info: Symptoms of acute stroke TECHNIQUE: Imaging protocol: Computed tomography of the head without contrast. Radiation optimization: All CT scans at this facility use at least one of these dose optimization techniques: automated exposure control; mA and/or kV adjustment per patient size (includes targeted exams where dose is matched to clinical indication); or iterative reconstruction. Other technique: STROKE PROTOCOL was implemented. COMPARISON: CT head wo con* [id number] 03/15/2022 9:48 PM RADIATION DOSE METRICS: Total DLP (mGy-cm): 1132.18 FINDINGS: Brain: No focal hemorrhage or midline shift is identified. The ventricles and parenchyma show mild atrophy and chronic bicerebral white matter ischemic change. Cerebral ventricles: No ventriculomegaly or evidence of hydrocephalus. Paranasal sinuses: No evidence of acute sinusitis. Mastoid air cells: Visualized mastoid air cells are well aerated. Bones/joints: No displaced skull fracture is noted. Soft tissues: Unremarkable. Vasculature: Diffuse vascular calcifications are present. CT/CT head thrombolytic [id number] IMPRESSION: 1. No acute intracranial abnormality. 2. Mild age-related changes. ASSESSMENT: ASPECTS ([place] Stroke Program Early CT Score) is 10.
--- NOTE | 2023-04-12 06:56 | ECG_ITS ---
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 Measurements Intervals [place] Rate: 78 P: 0 MT: 0 QRS: -70 QRSD: 149 T: 68 QT: 426 QTc: 488 Interpretive Statements UNCERTAIN REGULAR RHYTHM LEFT AXIS DEVIATION [QRS AXIS < -30] RIGHT BUNDLE BRANCH BLOCK [120+ ms QRS DURATION, UPRIGHT V1, 40+ ms S IN I/aVL/V4/V5/V6] Compared to ECG 05/11/2022 15:40:43 Left-axis deviation now present Myocardial infarct finding no longer present Electronically Signed On 04-12-2023 16:34:00 LIVE TRUCK TECHNICIAN by Rohan Mason M.D. [id number]
--- NOTE | 2023-04-12 06:56 | CTR_ITS ---
PROCEDURE INFORMATION: Exam: CTA Head With Contrast, Arteriography Exam date and time: 04/12/2023 7:03 AM Age: 67 years old Clinical indication: Stroke-like symptoms; Altered mental status/memory loss; Additional info: Wake up stroke TECHNIQUE: Imaging protocol: Computed tomographic angiography of the head with contrast. Exam focused on the arteries. 3D rendering (Not supervised by radiologist): MIP and/or 3D reconstructed images were created by the technologist. Radiation optimization: All CT scans at this facility use at least one of these dose optimization techniques: automated exposure control; mA and/or kV adjustment per patient size (includes targeted exams where dose is matched to clinical indication); or iterative reconstruction. Contrast material: OMNI 350; Contrast volume: 100 ml; Contrast route: INTRAVENOUS (IV); COMPARISON: CT head thrombolytic [id number] 04/12/2023 6:54 AM RADIATION DOSE METRICS: Total DLP (mGy-cm): 523.91 FINDINGS: ANTERIOR CIRCULATION: Right internal carotid artery: Very large plaque in the distal bilateral ICAs, affecting the cavernous ICAs predominantly. Along the cavernous ICA there is about a 60% stenosis Right middle cerebral artery: No occlusion or significant stenosis. No aneurysm. Right anterior cerebral artery: No occlusion or significant stenosis. No aneurysm. Left internal carotid artery: Very large plaque in the distal bilateral ICAs, affecting the cavernous ICAs predominantly. Along the cavernous ICA to the ICA terminus, there is about 90% stenosis to near occlusion. Left middle cerebral artery: No occlusion or significant stenosis. No aneurysm. Left anterior cerebral artery: No occlusion or significant stenosis. No aneurysm. Mild hypoplasia. POSTERIOR CIRCULATION: Right vertebral artery: No occlusion or significant stenosis. No aneurysm. Left vertebral artery: No occlusion or significant stenosis. No aneurysm. Basilar artery: No occlusion or significant stenosis. No aneurysm. Right posterior cerebral artery: No occlusion or significant stenosis. No aneurysm. Left posterior cerebral artery: No occlusion or significant stenosis. No aneurysm. Brain: No focal hemorrhage or midline shift identified. Mild age-related changes. Cerebral ventricles: No evidence of ventriculomegaly or hydrocephalus. The ventricles seem age-appropriate. Bones/joints: Unremarkable. No acute fracture. Soft tissues: Unremarkable. PROCEDURE INFORMATION: Exam: CTA Neck With Contrast Exam date and time: 04/12/2023 7:03 AM Age: 67 years old Clinical indication: Stroke-like symptoms; Altered mental status/memory loss; Additional info: Wake up stroke TECHNIQUE: Imaging protocol: Computed tomographic angiography of the neck with contrast. Exam focused on the cervical segments of the vasculature. 3D rendering (Not supervised by radiologist): MIP and/or 3D reconstructed images were created by the technologist. Radiation optimization: All CT scans at this facility use at least one of these dose optimization techniques: automated exposure control; mA and/or kV adjustment per patient size (includes targeted exams where dose is matched to clinical indication); or iterative reconstruction. Contrast material: OMNI 350; Contrast volume: 100 ml; Contrast route: INTRAVENOUS (IV); COMPARISON: CT cervical spin wo con* [id number] 03/15/2022 9:51 PM RADIATION DOSE METRICS: Total DLP (mGy-cm): 523.91 FINDINGS: Right common carotid artery: No stenosis. No dissection or occlusion. Right internal carotid artery: No stenosis of the extracranial segment. No dissection or occlusion. Right external carotid artery: No occlusion or high-grade stenosis identififed. Left common carotid artery: No stenosis. No dissection or occlusion. Left internal carotid artery: No stenosis of the extracranial segment. No dissection or occlusion. Left external carotid artery: No occlusion or high-grade stenosis identififed. Right vertebral artery: No stenosis. No dissection or occlusion. Left vertebral artery: No stenosis. No dissection or occlusion. Aorta: So-called bovine thoracic arch. Soft tissues: No significant soft tissue swelling or other acute finding noted. Bones/joints: Mild cervical DJD. No acute fracture noted. Lungs: Mild areas of upper lung atelectasis or pneumonitis. CT/CT angio headneck* [id number] IMPRESSION: 1. Very severe plaque in the distal bilateral ICAs, affecting the cavernous ICAs predominantly, [id number]-right. This has a chronic appearance with details above. 2. The intracranial arteries are otherwise patent. There is no evidence of acute occlusion. IMPRESSION: No significant neck arterial stenosis or occlusion. REFERENCES: NASCET CRITERIA. The degree of stenosis in the cervical segment of the internal carotid artery is based on NASCET criteria. Normal is no stenosis. Mild is less than 50% stenosis. Moderate is 50-69% stenosis. Severe is 70% to 99% stenosis. Total occlusion is no detectable patent lumen.
--- NOTE | 2023-04-12 07:01 | ED_ITS ---
HPI - Neuro Symptoms/Deficit 2 General: Chief Complaint: General Medical Stated Complaint: stroke sym Time Seen by Provider: 04/12/23 06:56 Source: patient and family Mode of arrival: wheelchair Limitations: no limitations History of Present Illness: This patient was transported to the emergency department by family. Patient states that she went to bed feeling normal and when she awoke this morning sometime just after 6 AM she noted that she did not feel right and was specifically noted that her right arm and hand did not feel like it was functioning normally and felt clumsy. She then notified her family who arrived and also noted that she seemed to be a little bit slurring and with her speech. She denied headache or other constitutional complaints at this time. Family also noted that she seemed to walk normally when she walked from the house to the car. Timing confirmed by: family member Location: speech and right arm History of same: No Severity: mild Quality: weak and numb On Anticoagulants: No Associated symptoms: Reports no associated symptoms; Deny chest pain, headache(s), nausea or vomiting Review of Systems 2 Const: Denies: fever(s) or chills Eyes: Denies: change in vision ENMT: Denies: throat pain, odynophagia, nasal discharge or nasal congestion Card: Denies: chest pain, palpitations or irregular heart rhythm Resp: Denies: dyspnea, productive cough or non-productive cough GI: Denies: abdominal pain, nausea or vomiting : Denies: difficulty voiding, dysuria or urinary frequency Musc: Denies: neck pain, back pain, extremity pain or extremity swelling Skin/Breast: Denies: rash Neuro: Reports: numbness in extremities, weakness in extremities and Slurred speech present; Denies: headache(s) Psych: Denies: anxiety or depression PFSH ED 2 PFSH: Medical History History of nonmelanoma skin cancer Lymphoma Hodgkin lymphoma Diabetes Thyroid disease Arthritis Surgical History H/O: hysterectomy Family History Mother Diabetes Other Cancer Social History Smoking and tobacco/nicotine status: former use of tobacco/nicotine Alcohol intake: never NIH stroke score 2 NIHSS: Level Of Consciousness - 1a: 0 Level Of Consciousness Questions - 1b: Both Correct Level Of Consciousness Commands - 1c: Both Correct Best Gaze - 2: Normal Visual Roman - 3: No Visual Loss Facial Palsy - 4: Minor Paralysis Motor Arm Right - 5: No Drift Motor Arm Left - 5: No Drift M otor Leg Right - 6: Drift Motor Leg Left - 6: No Drift Limb Ataxia - 7: A bsent Sensory - 8: Normal Best Language - 9: No Aphasia Dysarthia - 10: Mild/Moderate Dysarthia Extinction And Inattention - 11: 0 Score: Total Score: 3 Physical Exam 2 Narrative: EXAM NARRATIVE: The patient is alert and comfortable mildly anxious but an otherwise in no acute distress. Const: COMMON NORMALS: no acute distress, patient oriented x3, healthy appearing and alert GENERAL APPEARANCE: cooperative NUTRITIONAL APPEARANCE: overweight HENMT: COMMON NORMALS: normocephalic, atraumatic, Normal nasal mucous membranes and turbinates present, moist oral mucous membranes and oropharynx normal HEAD & SCALP: normocephalic and atraumatic FACE & SINUS: Flattened naso-labial fold present Left NOSE: Normal nasal mucous membranes and turbinates present Eye: COMMON NORMALS: Equal, round and reactive pupils present, EOMs intact bilaterally and conjunctivae normal CONJUNCTIVA: Yes conjunctivae normal P UPIL: Yes Equal, round and reactive pupils present Neck/C-Spine: COMMON NORMALS: full ROM, no lymphadenopathy and No carotid bruits Chest: COMMONS NORMALS: normal inspection of the chest Resp: COMMON NORMALS: normal respiratory effort and clear to auscultation bilaterally EFFORT & INSPECTION: Yes able to speak in complete sentences A USCULTATION: clear to auscultation bilaterally Cardio: COMMON NORMALS: regular rate, regular rhythm, No murmurs present (Cardio) and Peripheral pulses 2+ throughout RATE: regular rate RHYTHM: r egular rhythm PERIPHERAL PULSES: Peripheral pulses 2+ throughout GI: COMMON NORMALS: Normal to inspection, nondistended, normoactive bowel sounds present and Soft to palpation PALPATION: Yes Soft to palpation : COMMON NORMALS: Yes no CVA tenderness BLADDER/KIDNEY EXAM: Yes no CVA tenderness Back/Pelvis: COMMON NORMALS: no CVA tenderness, thoracic and lumbar spine normal to inspection, no thoracic nor lumbar tenderness, thoraco-lumbar ROM normal and straight leg raise negative bilaterally Extremity: COMMON NORMALS: normal to inspection, full ROM, capillary refill normal and no calf tenderness Neuro: COMMON NORMALS: patient oriented x3 and moves all extremities S ENSORIUM/ORIENTATION: Yes alert CRANIAL NERVES: Yes CN VII (facial) Laterality: left COORDINATION/BALANCE: giognd-ui-ceno test normal and fglr-yf-veew test normal SPEECH: Other neuro speech findings (Mild dysarthria) MOTOR EXAM: Abnormal motor strength present (Minimal but demonstrable strength deficit right leg to elevation against gr) C OORDINATION: eeedev-av-qdnr test normal and ndyx-sr-gooy test normal Psych: COMMON NORMALS: mental status grossly normal Skin: COMMON NORMALS: no rashes or lesions noted and turgor normal GENERAL SKIN EXAM: no rashes or lesions noted and turgor normal Course 2 Reevaluation(s): Reevaluation #1: Patient was evaluated immediately upon arrival and after a brief interview and evaluation was sent to CT scan. Dr. Ellis called for stroke team consultation. Time: 06:55 Reevaluation #2: CT and CTA were notable only for carotid disease but no evidence of hemorrhage, LVO etc. Discussed with Dr. Ellis we will start her on dual platelet therapy and switch her to rosuvastatin 40 mg daily and once remainder of her studies returned will have discussion regarding disposition. Discussed the risks and benefits of thrombolysis with the patient and the concern about increased risk of intracranial bleeding with duration of symptoms unknown. Time: 07:55 Reevaluation #3: Discussed options with patient and family. Because of her living alone as well as concerned about potential underlying and mass arrhythmia and increased risk for progression and need for further workup we recommend that period of observation would be appropriate which she agreed to. Time: 09:05 Consultations: Consultation #1: Discussed with Dr. Lopez who agreed to place her in observation status for continued workup and monitoring. Time: 09:06 Vital Signs: Vital signs: Vital Signs Pulse Rate 70 04/12/23 08:00 Respiratory Rate 16 04/12/23 06:53 Blood Pressure 137/58 04/12/23 08:00 Pulse Oximetry 92 04/12/23 08:00 Oxygen Delivery Me thod Room Air 04/12/23 08:00 MDM - Neuro Symptoms/Deficit Medical Decision Making Patient presented to our emergency department by private vehicle with a wake-up symptoms suggestive of a CVA. She awoke with symptoms after going to bed feeling normal so there was some concern about potential time of onset stroke workup was initiated which included imaging and usual laboratories. Her initial NIH was 3 related to mild dysarthria neurosensory changes in her right hand and very minimal drift in her right arm. Neurology was involved from the onset and the determination was that she was not an ideal candidate for thrombolytic therapy given the uncertainty of symptom onset. Patient was continually observed in the emergency department and not noted to have any obvious arrhythmias. Her blood pressure stabilized into a normal range while in the emergency department. Of note that she has an abnormal urinalysis which apparently is a recurrent issue for her. She is followed by urology in [place]. She will be placed in observation for echocardiogram, monitoring and further care as indicated. Medical Records I reviewed the patient's medical records. Lab Data I reviewed the patient's lab results. 04/12/23 06:58 04/12/23 06:[address] 04/12/23 06:56 IMPRESSION: 1. No acute intracranial abnormality. 2. Mild age-related changes. ASSESSMENT: ASPECTS ([facility] Stroke Program Early CT Score) is 10. Head/Neck CTA 04/12/23 06:56 IMPRESSION: 1. Very severe plaque in the distal bilateral ICAs, affecting the cavernous ICAs predominantly, [id number]-aqih-right. This has a chronic appearance with details above. 2. The intracranial arteries are otherwise patent. There is no evidence of acute occlusion. IMPRESSION: No significant neck arterial stenosis or occlusion. REFERENCES: NASCET CRITERIA. The degree of stenosis in the cervical segment of the internal carotid artery is based on NASCET criteria. Normal is no stenosis. Mild is less than 50% stenosis. Moderate is 50-69% stenosis. Severe is 70% to 99% stenosis. Total occlusion is no detectable patent lumen. Laboratory Results WBC 8.86 10^3/uL (3.29-11.43) 04/12/23 06:58 RBC 3.55 10^6/uL (3.85-5.65) L 04/12/23 06:58 Hgb 10.10 g/dL (11.27-16.99) L 04/12/23 06:58 Hct 34.1 % (36-47) L 04/12/23 06:58 MCV 96.1 fl (85-98) 04/12/23 06:58 MCH 28.5 pg (27-33) 04/12/23 06:58 MCHC 29.6 g/dL (30-55) L 04/12/23 06:58 RDW 14.6 % (12.1-15.1) 04/12/23 06:58 Plt Count 142 10^3/cmm (157-399) L 04/12/23 06:58 MPV 11.2 fL (7.4-10.4) H 04/12/23 06:58 Neut % (Auto) 50.5 % 04/12/23 06:58 Lymph % (Auto) 23.4 % 04/12/23 06:58 [place] % (Auto) 23.7 % 04/12/23 06:58 Eos % (Auto) 1.5 % 04/12/23 06:58 Baso % (Auto) 0.3 % 04/12/23 06:58 Neut # (Auto) 4.48 10^3/uL (1.8-7.7) 04/12/23 06:58 Lymph # (Auto) 2.1 10^3/uL (0.8-4.8) 04/12/23 06:58 [place] # (Auto) 2.1 10^3/uL (0.2-0.9) H 04/12/23 06:58 Eos # (Auto) 0.1 10^3/uL (0.0-0.8) 04/12/23 06:58 Baso # (Auto) 0.0 10^3/uL (0.0-0.1) 04/12/23 06:58 Nucleated RBC % (auto) 0 % 04/12/23 06:58 Nucleated RBCs # 0.0 /100WBC 04/12/23 06:58 PT 14.20 SECONDS (12.1-14.9) 04/12/23 06:58 INR 1.07 (0.8-1.2) 04/12/23 06:58 APTT 20.1 SECONDS (23.9-36.7) L 04/12/23 06:58 Sodium 135 mmol/L (136-145) L 04/12/23 06:58 Potassium 4.9 mmol/L (3.5-5.1) 04/12/23 06:58 Chloride 106 mmol/L (98-107) 04/12/23 06:58 Carbon Dioxide 18 mmol/L (22-29) L 04/12/23 06:58 Anion Gap 15.9 (5-19) 04/12/23 06:58 BUN 37 mg/dL (8-23) H 04/12/23 06:58 Creatinine 1.6 mg/dL (0.5-0.9) H 04/12/23 06:58 GFR Calculation 32.0 mL/min (90-130) L 04/12/23 06:58 Glucose 106 mg/dL (65-115) 04/12/23 06:58 POC Glucose 120 mg/dL (70-110) H 04/12/23 06:53 Calculated Osmolality 289 mOsm/kg (285-295) 04/12/23 06:58 Calcium 9.3 mg/dL (8.5-10.5) 04/12/23 06:58 Total Bilirubin 0.4 mg/dL (0.15-1.2) 04/12/23 06:58 AST 11 U/L (0-32) 04/12/23 06:58 ALT 8 U/L (0-33) 04/12/23 06:58 Alkaline Phosphatase 87 U/L (35-105) 04/12/23 06:58 Total Protein 8.1 g/dL (6.6-8.7) 04/12/23 06:58 Albumin 3.6 g/dL (3.5-5.2) 04/12/23 06:58 Globulin 4.5 g/dL (1.3-4.6) 04/12/23 06:58 Urine Color Yellow (Yellow) 04/12/23 07:49 Urine Appearance Cloudy (CLEAR) A 04/12/23 07:49 Urine pH 5 (5-7) 04/12/23 07:49 Ur Specific [place] 1.010 (1.005-1.030) 04/12/23 07:49 Urine Protein 1+ (Negative) H 04/12/23 07:49 Urine Glucose (UA) Norm (Normal) 04/12/23 07:49 Urine Ketones Negative (Negative) 04/12/23 07:49 Urine Blood 3+ (Negative) H 04/12/23 07:49 Urine Nitrate Negative (Negative) 04/12/23 07:49 Urine Bilirubin Neg (Negative) 04/12/23 07:49 Urine Urobilinogen Neg mg/dL (Negative) 04/12/23 07:49 Ur Leukocyte Esterase 2+ (Negative) H 04/12/23 07:49 Urine RBC >100 /hpf (0-2) H 04/12/23 07:49 Urine WBC Too numerous to cnt /hpf (0-5) H 04/12/23 07:49 Ur Squamous Epith Cells 0-4 /hpf (0-5) H 04/12/23 07:49 Amorphous Sediment Not Reportable 04/12/23 07:49 Urine Bacteria 1+ /hpf (NONE) H 04/12/23 07:49 Urine Mucus 1+ /hpf 04/12/23 07:49 All radiology interpretation(s) finalized by discharge EKG Data EKG 1: I personally reviewed and interpreted this EKG as follows: Interpretation: Contemporaneous review of resting EKG reveals ventricular rate of 78 bpm. PA interval is indeterminate QRS duration is prolonged.. Corrected QT intervals normal. Nonspecific ST-T wave changes. Right bundle branch block pattern. No change from prior tracing available from the system Discharge Plan Discharge Patient Disposition: Placed in Observation Clinical Impression: Non-hemorrhagic stroke, UTI (urinary tract infection) Condition: Stable Prescriptions: No Action levothyroxine [Synthroid] 88 mcg tablet 88 mcg PO DAILY aspirin [Adult Aspirin Regimen] 81 mg tablet,delayed release (DR/EC) 81 mg PO DAILY glyburide 2.5 mg tablet 2.5 mg PO BID metoprolol succinate 50 mg tablet extended release 24 hr 50 mg PO DAILY tamsulosin 0.4 mg capsule 0.4 mg PO DAILY (DME) Diabetic shoes and 3 pairs of inserts See Rx Instructions .Route .MEDSUPPLY Qty: 1 0RF Rx Instructions: As directed HOME simvastatin 10 mg tablet 10 mg PO DAILY ferrous gluconate 240 mg (27 mg iron) Tablet 240 mg PO DAILY lisinopril 10 mg tablet 10 mg PO DAILY Referrals: Celia Louis MD [Primary Care Provider] - Coding Level of Care Code ED Safety Equipment Tester for Ch[facility] [id number]
[2023-04-12] MEDS: iohexol 350 mg/mL 500 mL Btl (per mL) IV (07:22)
[2023-04-12 08:00] LABS: Add Urine Microscopic? YES; Bilirubin Urine Neg (Negative); Blood Urine 3+ (Negative); Glucose Urine UA Norm (Normal); Ketones Urine Negative (Negative); Leukocyte Esterase Urine 2+ (Negative); Nitrate Urine Negative (Negative); Protein Urine 1+ (Negative); Urine Appearance Cloudy (CLEAR); Urine Color Yellow (Yellow); Urobilinogen Urine Neg (Negative); pH Urine 5 (5-7)
[2023-04-12 08:12] LABS: Add Urine Culture? Yes; Bacteria Urine 1+ /hpf; Mucus Urine 1+ /hpf; RBC Urine >100 /hpf (0-2); Squamous Epithelial Cell Urine 0-4 /hpf (0-5); WBC Urine TOO NUMEROUS TO CNT /hpf (0-5)
[2023-04-12 08:23] LABS: Basophils % 0.3 %; Eosinophils # 0.1 10^3/uL (0.0-0.8); Eosinophils % 1.5 %; Hematocrit 34.1 % (36-47); Lymphocytes # 2.1 10^3/uL (0.8-4.8); Lymphocytes % 23.4 %; Mean Corpuscular HGB Conc 29.6 g/dL (30-55); Mean Corpuscular Hemoglobin 28.5 pg (27-33); Mean Corpuscular Volume 96.1 fl (85-98); Mean Platelet Volume 11.2 fL (7.4-10.4); Monocytes # 2.1 10^3/uL (0.2-0.9); Monocytes % 23.7 %; Neutrophils # 4.48 10^3/uL (1.8-7.7); Neutrophils % 50.5 %; Nucleated Red Blood Cells % 0 %; Platelet Count 142 10^3/cmm (157-399); Red Blood Count 3.55 10^6/uL (3.85-5.65); Red Cell Distribution Width 14.6 % (12.1-15.1); White Blood Count 8.86 10^3/uL (3.29-11.43)
[2023-04-12 08:29] LABS: INR 1.07 (0.8-1.2); Partial Thromboplastin Time 20.1 SECONDS (23.9-36.7)
[2023-04-12 08:38] LABS: Alanine Aminotransferase 8 U/L (0-33); Albumin Level 3.6 g/dL (3.5-5.2); Alkaline Phosphatase 87 U/L (35-105); Anion Gap 15.9 (5-19); Aspartate Amino Transferase 11 U/L (0-32); Blood Urea Nitrogen 37 mg/dL (8-23); Calcium 9.3 mg/dL (8.5-10.5); Carbon Dioxide 18 mmol/L (22-29); Chloride 106 mmol/L (98-107); Globulin 4.5 g/dL (1.3-4.6); Glucose 106 mg/dL (65-115); Osmolality Calculated 289 mOsm/kg (285-295); Potassium 4.9 mmol/L (3.5-5.1); Sodium 135 mmol/L (136-145); Total Bilirubin 0.4 mg/dL (0.15-1.2); Total Protein 8.1 g/dL (6.6-8.7)
[2023-04-12] MEDS: clopidogrel 300 mg Tablet PO (08:43)
[2023-04-12] MEDS: aspirin 81 mg EC Tablet PO (08:43)
--- NOTE | 2023-04-12 09:24 | PC.NURSE ---
PATIENT PLACED ON CONTINUOUS BEDSIDE CARDIAC MONITORING.
[2023-04-12] MEDS: nitrofurantoin SR (BID) 100 mg Capsule PO (09:30)
--- NOTE | 2023-04-12 10:44 | P.HP_ITS ---
Documented by User: BIRDIE Gordillo [facility] 04/12/23 13:36 Providers/Chief Complaint 2 Primary Care Provider: Celia Louis MD Chief Complaint: stroke sym History of Present Illness Macey Brush is a pleasant 67 year old female with past medical history of Hodgkin's lymphoma, diabetes, hypothyroidism, arthritis, hypertension, and recurrent UTIs who presents to the emergency department with a chief complaint of stroke like symptoms. Patient currently resides at home where she lives independently. Ms. Brush stated that she fell asleep in her recliner got up at 5 AM to use the restroom and at this time she was feeling fine. She then went back to sleep in her recliner and woke up about 6 AM and reported that she did not feel right and specifically noted that her right arm and hand did not feel like they were functioning normally, she reported that her right hand felt numb. Ms. Brush then took a shower and started feeling numbness in her neck. After showering Ms. Brush called her sister Citlaly, noted to be sitting at bedside, to come pick her up and take her to the emergency room. Citlaly noted that on arrival to pick her sister up Ms. Brush had some slurring with her speech and some drooping on the right side of her mouth. At this time Mrs. Brush denies numbness to her right arm and states that she is feeling back to her normal self. On arrival to emergency department NIH scale noted to be a score of 3, currently patient NIH scale score noted to be 1. Mrs. Brush denies headache, vision changes, nausea and vomiting, and chest pain. Patient reports compliance with home medications. The only medication she had this morning was her levothyroxine. Patient did report some blood in her stool at home, last occurrence was a week ago, she noted that she has external hemorrhoids. She also reports that in September she has a sleep study completed and qualifies for a CPAP at night but has not been wearing because the Cpap she has is too forceful and uncomfortable to sleep using. While in ER, laboratory studies and radiology imaging were performed and discussed below. Patient received Plavix 300mg PO, aspirin 81mg PO, and Macrobid 100mg PO for UTI Medications/Allergies Home Medications Medication Instructions Recorded Confirmed Last Taken Type aspirin 81 mg tablet,delayed 81 mg PO DAILY 10/26/19 04/12/23 04/11/23 History release (Adult Aspirin Regimen) levothyroxine 88 mcg tablet 88 mcg PO DAILY 10/26/19 04/12/23 04/12/23 History (Synthroid) glyburide 2.5 mg tablet 2.5 mg PO BID 09/05/20 04/12/23 04/11/23 History simvastatin 10 mg tablet 10 mg PO DAILY 03/16/22 04/12/23 04/11/23 History metoprolol succinate 50 mg 50 mg PO DAILY 04/30/22 04/12/23 04/11/23 History tablet,extended release 24 hr tamsulosin 0.4 mg capsule 0.4 mg PO DAILY 04/30/22 04/12/23 04/11/23 History Diabetic shoes and 3 pairs of #1 ea 05/04/22 04/12/23 Unknown Rx inserts lisinopril 10 mg tablet 10 mg PO DAILY 05/11/22 04/12/23 04/11/23 History ferrous gluconate 240 mg (27 mg 240 mg PO DAILY 04/12/23 04/12/23 04/11/23 History iron) tablet Allergies Allergy/AdvReac Type Severity Reaction Status Date / Time adhesive tape Allergy rash Verified 04/12/23 08:49 ciprofloxacin [From Cipro] Allergy peeling of Verified 04/12/23 08:49 hands and feet latex Allergy ALGY-Rash Verified 04/12/23 08:49 sulfamethoxazole Allergy doesn't Verified 04/12/23 08:49 [From Bactrim] work trimethoprim [From Bactrim] Allergy doesn't Verified 04/12/23 08:49 work tegraderm Allergy Unknown Uncoded 04/12/23 08:50 PFSH Acute 2 PFSH: Medical History (Updated 04/12/23 @ 12:22 by Dominick Lopez MD) Lymphoma Diabetes History of endometrial cancer DJD (degenerative joint disease) Chronic kidney disease Chronic UTI Hypertension Anemia History of nonmelanoma skin cancer Hodgkin lymphoma Thyroid disease Arthritis Surgical History History of cholecystectomy H/O: hysterectomy Family History Mother Diabetes Other Cancer Social History Smoking and tobacco/nicotine status: former use of tobacco/nicotine Alcohol intake: never Vitals/I&O/Wt Last Vital Signs Pulse 70 04/12/23 09:30 Resp 17 04/12/23 09:30 BP 153/63 04/12/23 09:30 Pulse Ox 97 04/12/23 09:30 O2 Del Method Room Air 04/12/23 09:30 Weight last 48 hrs Weight 220 lb Physical Exam 2 Narrative: General exam: Patient is alert and oriented, no distress currently, on RA. Neck: is supple, no lymphadenopathy, no thyromegaly. Cardiovascular: regular rhythm, regular rate, no murmur heard on auscultation. Lungs: sounds noted to be clear throughout on auscultation. Abdomen: is soft with positive bowel sounds. Abd non-tender. Extremities: show no cyanosis or clubbing. No edema. Skin: no rash. Neuro: moves all extremities, no sensory deficits, no focal motor deficits. [id number] normal, heel- to- mcmullen normal, speech normal. Data 04/12/23 06:58 04/12/23 06:58 Other Labs: BUN 37, creatinine 1.6 LFTs noted to be within normal limits Na [address] 04/12/23 06:56 IMPRESSION: 1. No acute intracranial abnormality. 2. Mild age-related changes. ASSESSMENT: ASPECTS ([place] Stroke Program Early CT Score) is 10 Head/Neck CTA 04/12/23 06:56 IMPRESSION: 1. Very severe plaque in the distal bilateral ICAs, affecting the cavernous ICAs predominantly, [id number]-right. This has a chronic appearance with details above. 2. The intracranial arteries are otherwise patent. There is no evidence of acute occlusion IMPRESSION: No significant neck arterial stenosis or occlusion. REFERENCES: NASCET CRITERIA. The degree of stenosis in the cervical segment of the internal carotid artery is based on NASCET criteria. Normal is no stenosis. Mild is less than 50% stenosis. Moderate is 50-69% stenosis. Severe is 70% to 99% stenosis. Total occlusion is no detectable patent lumen A&P Assessment and plan (1) CVA (cerebral vascular accident): Admit as observation to medical surgical floor. Continue Plavix, aspirin. Neuro checks Aspiration precaution Fall precautions NIH scale monitoring. Hold blood pressure medication. (2) Carotid stenosis: Start rosuvastatin per neurologist. Continue Plavix and aspirin. Cardiac monitoring Echocardiogram ordered. Consult cardiology. (3) UTI (urinary tract infection): Continue macrobid I's and O's Qualifiers: Hematuria presence: with hematuria Urinary tract infection type: site unspecified Qualified Code(s): N39.0 - Urinary tract infection, site not specified; R31.9 - Hematuria, unspecified (4) Chronic kidney disease: CBC, CMP in a.m. (5) Diabetes: Cardiac carb consistent diet ACHS Sliding scale insulin (6) Thyroid disease: Continue levothyroxine. TSH ordered. (7) Lymphoma: Patient with history of lymphoma, with recurrence in the past and treatment about 10 years ago. Continue further outpatient work-up. Coding Level of Care Code 88434 Diagnoses CVA (cerebral vascular accident) I63.9 Carotid stenosis I65.29 UTI (urinary tract infection) N39.0; R31.9 Hematuria presence: with hematuria Urinary tract infection type: site unspecified Chronic kidney disease N18.9 Diabetes E11.9 Thyroid disease E07.9 Lymphoma C85.90 Time Spent (min) 65 Documented by User: Dominick Lopez MD 04/12/23 14:29 Providers/Chief Complaint 2 Admitting Physician: Dominick Lopez MD Chief Complaint: stroke sym Review of Systems 2 General: Reports: 10 or more systems reviewed and unremarkable except in HPI and below Card: Denies: chest pain Resp: Denies: dyspnea Medications/Allergies Home Medications Medication Instructions Recorded Confirmed Last Taken Type aspirin 81 mg tablet,delayed 81 mg PO DAILY 10/26/19 04/12/23 04/11/23 History release (Adult Aspirin Regimen) levothyroxine 88 mcg tablet 88 mcg PO DAILY 10/26/19 04/12/23 04/12/23 History (Synthroid) glyburide 2.5 mg tablet 2.5 mg PO BID 09/05/20 04/12/23 04/11/23 History simvastatin 10 mg tablet 10 mg PO DAILY 03/16/22 04/12/23 04/11/23 History metoprolol succinate 50 mg 50 mg PO DAILY 04/30/22 04/12/23 04/11/23 History tablet,extended release 24 hr tamsulosin 0.4 mg capsule 0.4 mg PO DAILY 04/30/22 04/12/23 04/11/23 History Diabetic shoes and 3 pairs of #1 ea 05/04/22 04/12/23 Unknown Rx inserts lisinopril 10 mg tablet 10 mg PO DAILY 05/11/22 04/12/23 04/11/23 History ferrous gluconate 240 mg (27 mg 240 mg PO DAILY 04/12/23 04/12/23 04/11/23 History iron) tablet Allergies Allergy/AdvReac Type Severity Reaction Status Date / Time adhesive tape Allergy rash Verified 04/12/23 08:49 ciprofloxacin [From Cipro] Allergy peeling of Verified 04/12/23 08:49 hands and feet latex Allergy ALGY-Rash Verified 04/12/23 08:49 sulfamethoxazole Allergy doesn't Verified 04/12/23 08:49 [From Bactrim] work trimethoprim [From Bactrim] Allergy doesn't Verified 04/12/23 08:49 work tegraderm Allergy Unknown Uncoded 04/12/23 08:50 PFSH Acute 2 PFSH: Medical History (Updated 04/12/23 @ 12:22 by Dominick Lopez MD) Lymphoma Diabetes History of endometrial cancer DJD (degenerative joint disease) Chronic kidney disease Chronic UTI Hypertension Anemia History of nonmelanoma skin cancer Hodgkin lymphoma Thyroid disease Arthritis Surgical History History of cholecystectomy H/O: hysterectomy Family History Mother Diabetes Other Cancer Social History Smoking and tobacco/nicotine status: former use of tobacco/nicotine Alcohol intake: never Physical Exam 2 Narrative: General exam: Patient is alert and oriented, no distress currently, on RA. Neck: is supple, no lymphadenopathy, no thyromegaly. Cardiovascular: regular rhythm, regular rate, no murmur heard on auscultation. Lungs: sounds noted to be clear throughout on auscultation. Abdomen: is soft with positive bowel sounds. Abd non-tender. Extremities: show no cyanosis or clubbing. No edema. Skin: no rash. Neuro: moves all extremities, no sensory deficits, no focal motor deficits. [id number] normal, heel- to- mcmullen normal, speech normal. Nasolabial flattening on the right. NIHSS score 1. No strength differential right to left in upper or lower extremities. No visual field defects. Data 04/12/23 06:58 04/12/23 06:58 Other Labs: BUN 37, creatinine 1.6 LFTs noted to be within normal limits Na [address] 04/12/23 06:56 IMPRESSION: 1. No acute intracranial abnormality. 2. Mild age-related changes. ASSESSMENT: ASPECTS ([place] Stroke Program Early CT Score) is 10 Head/Neck CTA 04/12/23 06:56 IMPRESSION: 1. Very severe plaque in the distal bilateral ICAs, affecting the cavernous ICAs predominantly, [id number]-right. This has a chronic appearance with details above. 2. The intracranial arteries are otherwise patent. There is no evidence of acute occlusion IMPRESSION: No significant neck arterial stenosis or occlusion. REFERENCES: NASCET CRITERIA. The degree of stenosis in the cervical segment of the internal carotid artery is based on NASCET criteria. Normal is no stenosis. Mild is less than 50% stenosis. Moderate is 50-69% stenosis. Severe is 70% to 99% stenosis. Total occlusion is no detectable patent lumen Urinalysis demonstrates greater than 100 red blood cells, 2+ leukocytes, too numerous to count white blood cells, 1+ bacteria TSH has been ordered I have ordered a chest x-ray EKG I am trying to review, unfortunately it is not available in the computer system currently. The emergency department physician has said this is sinus rhythm. EKG demonstrates right bundle branch block, left axis deviation, sinus rhythm with first-degree AV block. A&P Assessment and plan (1) CVA (cerebral vascular accident): Admit as observation to medical surgical floor. Continue Plavix, aspirin. Neuro checks Aspiration precaution Fall precautions NIH scale monitoring. Hold blood pressure medication. Permissive hypertension is going to be performed secondary to CVA Consider readding some medications after 24 hours Note significant carotid stenosis, below High intensity statin, atorvastatin 40 mg daily Check echocardiogram (2) Carotid stenosis: High intensity statin as above Continue Plavix and aspirin. Cardiac monitoring Echocardiogram ordered. Has significant carotid stenosis is intracranial, consideration of interventional radiology referral as outpatient. (3) UTI (urinary tract infection): Initiate Rocephin IV Urine culture CT is being performed to rule out any obstruction secondary to patient's history of lymphoma and prior hydronephrosis Qualifiers: Hematuria presence: with hematuria Urinary tract infection type: site unspecified Qualified Code(s): N39.0 - Urinary tract infection, site not specified; R31.9 - Hematuria, unspecified (4) Chronic kidney disease: CBC, CMP in a.m. Avoid anti-inflammatories, renal toxic medication Close follow-up of renal function tomorrow with BMP (5) Diabetes: (6) Thyroid disease: (7) Lymphoma: Patient with history of lymphoma, with recurrence in the past and treatment about [address] of abdomen is being doing done secondary to UTI with history of hydronephrosis, probably from prior history of lymphoma Plan Chronic iron deficiency anemia. Multiple other medical problems as outlined in past medical history Full code Lovenox for DVT prophylaxis Attestations 2 Medical Necessity Statement*: Will need less than 2 midnight stay for evaluation and treatment of CVA Diagnoses CVA (cerebral vascular accident) I63.9 Carotid stenosis I65.29 UTI (urinary tract infection) N39.0; R31.9 Hematuria presence: with hematuria Urinary tract infection type: site unspecified Chronic kidney disease N18.9 Diabetes E11.9 Thyroid disease E07.9 Lymphoma C85.90 Time Spent (min) 65
--- NOTE | 2023-04-12 12:16 | CT_ITS ---
WS: [id number] CT ABDOMEN AND PELVIS NONCONTRAST HISTORY: history of hydronephrosis, UTI TECHNIQUE: Imaging performed through the abdomen and pelvis. Coronal and sagittal reformats are submi tted. All CT scans at [facility] use at least one of these dose optimization techniques: auto mated exposure control; mA and/or kV adjustment per patient size (includes targeted exams where dose is matched to clinical indication); or iterative reconstruction. DLP: 1098.58 mGy.cm COMPARISON: 05/11/2022 Lower thorax: Bilateral lower lobe pulmonary nodules are identified. The largest nodule is 13 mm with a central cavitation at the RIGHT lung base abutting the pleura. There is an additional cavitary 10 mm nodule in the RIGHT lower lobe. There are a few additional nodules which are not cavitated and sma ller. Some of these nodules were present on the prior study but the cavitation is new. Mild cardiomeg raciel. Moderate hiatal hernia. Liver: Hepatic steatosis and mild enlargement. Gallbladder: Prior cholecystectomy. Pancreas: Atrophied. Spleen: Normal. Adrenal glands: Normal. No mass. Right kidney: High density excreted contrast into the renal pelvis and ureter from the recent CT jimmie ogram. The ureter is patent with no high-grade obstruction. There is mild dilatation of an extrarenal pelvis. No calyceal dilatation. Left kidney: Normal size kidney. There is mild hydronephrosis. Mild pelvic and calyceal dilatation. T here is excreted contrast filling the ureter. The distal LEFT ureter becomes very narrow. Suspected d istal ureteral stricture versus neoplasm causing the mild obstruction. There is additional soft tissu e involving the LEFT proximal ureter although there is no obstruction. This could represent uroepithe lial lesion. Aorta: Mild atherosclerosis abdominal aorta with no aneurysm. Small mesenteric and retroperitoneal lymph nodes. Reidentified is a central mesenteric mass with susie cent small lymph nodes and tethering measuring 5.8 x 4.4 cm. Similar to prior examinations dating [facility] to 03/16/2022. GI tract: No obstruction. Abdominal wall: Negative. No hernia. Pelvis: Urinary bladder is distended with IV contrast from a prior injection. There is mild bladder w all thickening. Reidentified is a soft tissue thickening involving the distal LEFT ureter which was a lso described on 05/11/2022. Osseous structures: No osteoblastic or osteolytic bone disease. There is slight increased sclerosis i n the S1 segment which was present on prior studies. IMPRESSION: 1. Mild LEFT hydroureteronephrosis. This was also described on 05/11/2022. Suspect stricture or obstr uction to process involving the distal ureter. There is additional soft tissue adjacent to the proxim al LEFT ureter not causing obstruction. Uroepithelial lesions are not excluded. 2. No significant obstruction RIGHT kidney. 3. Central mesenteric and retroperitoneal lymph nodes are unchanged. There is a cluster of lymph nod es in the central mesentery which is reidentified and also unchanged. No progression. 4. No GI tract obstruction. No ascites. 5. Pulmonary nodules are noted at the lung bases. The 2 largest are cavitary at the RIGHT lung base. The cavitation is new suggesting neoplastic or infectious process. Largest cavitary lesion measures 13 mm.
--- NOTE | 2023-04-12 12:19 | XR_ITS ---
WS: [id number] Exam: XR chest 1V portable [id number] Date/Time of Exam: 04/12/2023 12:19 PM Reason For Exam: CVA Comparison 05/11/2022. Lungs are clear and fully expanded. Normal cardiomediastinal silhouette and regional bony elements. N o pleural effusions. IMPRESSION: 1. No acute cardiopulmonary finding.
[2023-04-12 13:03] LABS: Thyroid Stimulating Hormone 2.22 uIU/mL (0.27-4.20)
--- NOTE | 2023-04-12 16:08 | USCV_ITS ---
Macey Brush Age: 67 Gender: F : 1955 Exam Date: 04/12/2023 17:33 Ordering Phys: Dominick Lopez MD Technologist: Yanick Camp [place] [facility] [place]: cva BP: 160 / 58 HR: 69 Rhythm: Sinus Technical Quality: Adequate MEASUREMENTS (Male / Female) Normal Values 2D ECHO LVOT Diameter 2.0 cm LV Ejection Fraction MOD 2C 72.3 % LV Ejection Fraction 2C AL 72.3 % LA Diameter 3.8 cm LA Width 3.6 cm LA Height 5.1 cm RA Width 3.5 cm RA Height 4.2 cm Aorta at Sinotubular Diameter 2.4 cm IVC Diameter 2.0 cm M-MODE Aortic Annulus Diameter 2.8 cm LA Ao Ratio MM 1.3 MV E Point Septal Separation 0.3 cm DOPPLER AV Peak Velocity 130.0 cm/s LVOT Peak Velocity 116.0 cm/s AV Area Cont Eq vti 3.0 cm squared AV Area Cont Eq pk 2.9 cm squared MV Peak Velocity 109.0 cm/s MV Area PHT 3.0 cm squared Mitral E to A Ratio 0.6 MV E' Velocity 30.5 cm/s Mitral E to MV E' Ratio 6.3 Mitral E to LV E' Lateral Ratio 6.0 Mitral E to LV E' Septal Ratio 6.9 Right Atrial Pressure 3.0 mmHg PV Peak Velocity 90.0 cm/s RV Acceleration Time 0.1 s RV Ejection Time 0.3 s RV AcT/ET 0.3 FINDINGS Left Ventricle Normal left ventricular size, systolic function and wall thickness, with no regional wall motion abnormalities. Grade I/IV diastolic dysfunction (abnormal relaxation filling pattern), normal to mildly elevated filling pressures. Left ventricular ejection fraction is estimated at 65 %. Right Ventricle The right ventricle is normal in size and function. Right Atrium The right atrium is normal in size. Left Atrium The left atrium is normal in size. Mitral Valve Structurally normal mitral valve without significant stenosis or prolapse. There is no mitral regurgitation. Aortic Valve Structurally normal aortic valve without significant sclerosis or stenosis. There is no aortic regurgitation. Tricuspid Valve Structurally normal tricuspid valve without significant stenosis or regurgitation. Pulmonary artery systolic pressure is normal. Pulmonic Valve Pulmonic valve not well visualized. Pericardium Normal pericardium without effusion. Aorta Ascending aorta measurement 3.19 cm IVC The inferior vena cava appears normal. CONCLUSIONS Normal left ventricular size, systolic function and wall thickness, with no regional wall motion abnormalities. Grade I/IV diastolic dysfunction (abnormal relaxation filling pattern), normal to mildly elevated filling pressures. Left ventricular ejection fraction is estimated at 65 %. There are no prior echocardiogram studies to compare. Dr. Saqib Badillo MD (Electronically Signed) Final Date: 13 April 2023 09:42 S
[2023-04-12 16:51] LABS: Glucose Point of Care 87 mg/dL (70-110)
[2023-04-12] MEDS: cefTRIAXone 1,000 MG in sodium chloride 0.9% (plus) 50 ML 100 MG IV (18:18)
[2023-04-12] MEDS: sodium chloride 0.9% 1,000 ML 100 ML IV (18:19)
[2023-04-12] MEDS: enoxaparin 40 mg/0.4 mL Syringe SUBCUT (18:19)
[2023-04-12 22:41] LABS: Glucose Point of Care 138 mg/dL (70-110)
[2023-04-12] MEDS: atorvastatin 40 mg Tablet PO (22:47)
[2023-04-12] MEDS: nystatin powder 15 gm Btl 1 APPLIC TOPICAL (22:47)
[2023-04-13] VITALS (7 sets, daily range): BP systolic 150–171; BP diastolic 63–81; PULSE 68–82; RESP 14–18; TEMP 36.2–36.6; O2SAT 94–98
[2023-04-13 06:06] LABS: Cholesterol 126 mg/dL (0-200); HDL Cholesterol 36 mg/dL (60-100); LDL Cholesterol Calculated 67 mg/dL (50-129); LDL HDL Ratio 1.86 RATIO (0.00-3.22); Triglycerides 115 mg/dL (0-150)
[2023-04-13] MEDS: sodium chloride 0.9% 1,000 ML 100 ML IV (06:56)
[2023-04-13 06:59] LABS: Glucose Point of Care 130 mg/dL (70-110)
[2023-04-13 08:05] LABS: Glucose Point of Care 118 mg/dL (70-110)
[2023-04-13] MEDS: levothyroxine 88 mcg Tablet PO (08:44)
[2023-04-13] MEDS: tamsulosin 0.4 mg Capsule PO (08:44)
[2023-04-13] MEDS: nystatin powder 15 gm Btl 1 APPLIC TOPICAL (08:44)
[2023-04-13] MEDS: aspirin 81 mg EC Tablet PO (08:45)
[2023-04-13] MEDS: clopidogrel 75 mg Tablet PO (08:45)
[2023-04-13 10:09] LABS: Basophils % 0.3 %; Eosinophils # 0.1 10^3/uL (0.0-0.8); Eosinophils % 1.4 %; Hematocrit 31.5 % (36-47); Lymphocytes # 2.8 10^3/uL (0.8-4.8); Lymphocytes % 27.1 %; Mean Corpuscular HGB Conc 31.1 g/dL (30-55); Mean Platelet Volume 11.4 fL (7.4-10.4); Monocytes # 2.5 10^3/uL (0.2-0.9); Monocytes % 24.4 %; Neutrophils # 4.78 10^3/uL (1.8-7.7); Neutrophils % 46.3 %; Nucleated Red Blood Cells % 0 %; Platelet Count 161 10^3/cmm (157-399); Red Cell Distribution Width 14.6 % (12.1-15.1); White Blood Count 10.32 10^3/uL (3.29-11.43)
[2023-04-13 12:18] LABS: Glucose Point of Care 198 mg/dL (70-110)
--- NOTE | 2023-04-13 13:38 | P.DS_ITS ---
Discharge Providers Date of Admission: 04/12/23 09:13 Date of Discharge: April 13, 2023 Attending Provider at Admission: Dominick Lopez MD Attending Provider at Discharge: Karen Ozuna MD Primary Care Provider: Celia Louis MD Diagnoses at Discharge Discharge Diagnosis (1) CVA (cerebral vascular accident): Status: Acute (2) Carotid stenosis: Status: Acute (3) UTI (urinary tract infection): Status: Acute Qualifiers: Hematuria presence: with hematuria Urinary tract infection type: site unspecified Qualified Code(s): N39.0 - Urinary tract infection, site not specified; R31.9 - Hematuria, unspecified (4) Chronic kidney disease: Status: Chronic (5) Diabetes: Status: Acute (6) Thyroid disease: Status: Acute (7) Lymphoma: Status: Acute Reason for Visit Reason for Visit: stroke sym Brief History: Macey Brush is a pleasant 67 year old female with past medical history of Hodgkin's lymphoma, diabetes, hypothyroidism, arthritis, hypertension, and recurrent UTIs who presents to the emergency department with a chief complaint of stroke like symptoms. Patient currently resides at home where she lives independently. Ms. Brush stated that she fell asleep in her recliner got up at 5 AM to use the restroom and at this time she was feeling fine. She then went back to sleep in her recliner and woke up about 6 AM and reported that she did not feel right and specifically noted that her right arm and hand did not feel like they were functioning normally, she reported that her right hand felt numb. Ms. Brush then took a shower and started feeling numbness in her neck. After showering Ms. Brush called her sister Citlaly, noted to be sitting at bedside, to come pick her up and take her to the emergency room. Citlaly noted that on arrival to pick her sister up Ms. Brush had some slurring with her speech and some drooping on the right side of her mouth. At this time Mrs. Brush denies numbness to her right arm and states that she is feeling back to her normal self. On arrival to emergency department NIH scale noted to be a score of 3, currently patient NIH scale score noted to be 1. Mrs. Brush denies headache, vision changes, nausea and vomiting, and chest pain. Patient reports compliance with home medications. The only medication she had this morning was her levothyroxine. Patient did report some blood in her stool at home, last occurrence was a week ago, she noted that she has external hemorrhoids. She also reports that in September she has a sleep study completed and qualifies for a CPAP at night but has not been wearing because the Cpap she has is too forceful and uncomfortable to sleep using. While in ER, laboratory studies and radiology imaging were performed and discussed below. Patient received Plavix 300mg PO, aspirin 81mg PO, and Macrobid 100mg PO for UTI Hospital Course Hospital Course Patient was admitted for observation for cerebrovascular accident. To continue aspirin and Plavix. She did have significant carotid stenosis for which she has been referred to neurology at [facility]. Admitting physician spoke with neuroradiologist at [facility] who recommended neurology referral in order to schedule for carotid endarterectomy. Patient was started on atorvastatin. Echo cardiogram completed showed mild diastolic dysfunction and normal EF. Patient also found to have a UTI. Urine culture growing less than 5000 gram-negative rods. Previous urine cultures have been sensitive to ceftriaxone. Will discharge patient home on 7 days of cefpodoxime. Abdomen CT pelvis also done during this hospital stay shows stable hydronephrosis and no change from prior study. Patient to follow-up with urology, primary care, neuro as an outpatient. Lastly on CT there was an incidental finding of 13 mm cavitary lesion in the lung. Case was discussed with pulmonology over the phone. He recommended to check a gold QuantiFERON which has been ordered. Patient will be seeing pulmonology as an outpatient within a week for potential biopsy of lesion. She does not have any symptoms to indicate TB at this time. Patient recommended to isolate till results are back. Patient seen in presence of sister. Went over the plan with her and her and her sister have both verbalized understanding. Patient will be sent home in stable condition. Physical Exam Narrative: General exam: Patient is alert and oriented, no distress currently, on RA. Neck: is supple, no lymphadenopathy, no thyromegaly. Cardiovascular: regular rhythm, regular rate, no murmur heard on auscultation. Lungs: sounds noted to be clear throughout on auscultation. Abdomen: is soft with positive bowel sounds. Abd non-tender. Extremities: show no cyanosis or clubbing. No edema. Neuro: moves all extremities, no sensory deficits, no focal motor deficits. [id number] normal, heel- to- mcmullen normal, speech normal. Nasolabial flattening on the right. NIHSS score 1. No strength differential right to left in upper or lower extremities. No visual field defects. Exam consistent with admitting neuroexam. Discharge Data Studies Completed and Pending Completed Studies During Hospitalization Category Date Time Status CT abdomen renal stone [CT kidney stone [id number]] Stat Cat Scan 04/12/23 12:[address] angio headneck* [id number] Stat Cat Scan 04/12/23 06:[address] head thrombolytic [id number] Stat Cat Scan 04/12/23 06:56 Completed XR chest 1V portable [id number] Stat Exams 04/12/23 12:19 Completed CV. echo complete* [id number] Routine Ultrasound 04/12/23 16:08 Completed Pending at discharge Category Date Time Status AFB [Mycobacteria, Culture w/Fluor] Routine Lab 04/12/23 15:32 Uncollected [id number] Plus Routine Lab 04/12/23 16:43 Received Urine Culture Stat Lab 04/12/23 07:49 Results Radiology Impressions Head CT 04/12/23 06:56 IMPRESSION: 1. No acute intracranial abnormality. 2. Mild age-related changes. ASSESSMENT: ASPECTS ([place] Stroke Program Early CT Score) is 10. Head/Neck CTA 04/12/23 06:56 IMPRESSION: 1. Very severe plaque in the distal bilateral ICAs, affecting the cavernous ICAs predominantly, [id number]. This has a chronic appearance with details above. 2. The intracranial arteries are otherwise patent. There is no evidence of acute occlusion. IMPRESSION: No significant neck arterial stenosis or occlusion. REFERENCES: NASCET CRITERIA. The degree of stenosis in the cervical segment of the internal carotid artery is based on NASCET criteria. Normal is no stenosis. Mild is less than 50% stenosis. Moderate is 50-69% stenosis. Severe is 70% to 99% stenosis. Total occlusion is no detectable patent lumen. Laboratory Results WBC 10.32 10^3/uL (3.29-11.43) 04/13/23 09:27 RBC 3.50 10^6/uL (3.85-5.65) L 04/13/23 09:27 Hgb 9.80 g/dL (11.27-16.99) L 04/13/23 09: Hct 31.5 % (36-47) L 04/13/23: MCV 90.0 fl (85-98) 04/13/23 09: MCH 28.0 pg (27-33) 04/13/23: MCHC 31.1 g/dL (30-55) D 04/13/23: RDW 14.6 % (12.1-15.1) 04/13/23 09: Plt Count 161 10^3/cmm (157-399) 04/13/23 09: MPV 11.4 fL (7.4-10.4) H 04/13/23 09: Neut % (Auto) 46.3 % 04/13/23 09: Lymph % (Auto) 27.1 % 04/13/23 09: Waldo % (Auto) 24.4 % 04/13/23 09: Eos % (Auto) 1.4 % 04/13/23 09: Baso % (Auto) 0.3 % 04/13/23: Neut # (Auto) 4.78 10^3/uL (1.8-7.7) 04/13/23 09: Lymph # (Auto) 2.8 10^3/uL (0.8-4.8) 04/13/23 09: Waldo # (Auto) 2.5 10^3/uL (0.2-0.9) H 04/13/23: Eos # (Auto) 0.1 10^3/uL (0.0-0.8) 04/13/23 09: Baso # (Auto) 0.0 10^3/uL (0.0-0.1) 04/13/23: Nucleated RBC % (auto) 0 % 04/13/23: Nucleated RBCs # 0.0 /100WBC 04/13/23 09: PT 14.20 SECONDS (12.1-14.9) 04/12/23 06:58 INR 1.07 (0.8-1.2) 04/12/23 06:58 APTT 20.1 SECONDS (23.9-36.7) L 04/12/23 06:58 Sodium 135 mmol/L (136-145) L 04/12/23 06:58 Potassium 4.9 mmol/L (3.5-5.1) 04/12/23 06:58 Chloride 106 mmol/L (98-107) 04/12/23 06:58 Carbon Dioxide 18 mmol/L (22-29) L 04/12/23 06:58 Anion Gap 15.9 (5-19) 04/12/23 06:58 BUN 37 mg/dL (8-23) H 04/12/23 06:58 Creatinine 1.6 mg/dL (0.5-0.9) H 04/12/23 06:58 GFR Calculation 32.0 mL/min (90-130) L 04/12/23 06:58 Glucose 106 mg/dL (65-115) 04/12/23 06:58 POC Glucose 198 mg/dL (70-110) H 04/13/23 11:33 Estimat Average Glucose Cancelled 04/13/23 04:00 Hemoglobin A1c Cancelled 04/13/23 04:00 Calculated Osmolality 289 mOsm/kg (285-295) 04/12/23 06:58 Calcium 9.3 mg/dL (8.5-10.5) 04/12/23 06:58 Total Bilirubin 0.4 mg/dL (0.15-1.2) 04/12/23 06:58 AST 11 U/L (0-32) 04/12/23 06:58 ALT 8 U/L (0-33) 04/12/23 06:58 Alkaline Phosphatase 87 U/L (35-105) 04/12/23 06:58 Total Protein 8.1 g/dL (6.6-8.7) 04/12/23 06:58 Albumin 3.6 g/dL (3.5-5.2) 04/12/23 06:58 Globulin 4.5 g/dL (1.3-4.6) 04/12/23 06:58 Triglycerides 115 mg/dL (0-150) 04/13/23 04:00 Cholesterol 126 mg/dL (0-200) 04/13/23 04:00 LDL Cholesterol, Calc 67 mg/dL (50-129) 04/13/23 04:00 HDL Cholesterol 36 mg/dL (60-100) L 04/13/23 04:00 LDL/HDL Ratio 1.86 RATIO (0.00-3.22) 04/13/23 04:00 Cholesterol/HDL Ratio 3.50 mg/dL (0.0-4.40) 04/13/23 04:00 TSH 2.22 uIU/mL (0.27-4.20) 04/12/23 06:58 Urine Color Yellow (Yellow) 04/12/23 07:49 Urine Appearance Cloudy (CLEAR) A 04/12/23 07:49 Urine pH 5 (5-7) 04/12/23 07:49 Ur Specific Douglass 1.010 (1.005-1.030) 04/12/23 07:49 Urine Protein 1+ (Negative) H 04/12/23 07:49 Urine Glucose (UA) Norm (Normal) 04/12/23 07:49 Urine Ketones Negative (Negative) 04/12/23 07:49 Urine Blood 3+ (Negative) H 04/12/23 07:49 Urine Nitrate Negative (Negative) 04/12/23 07:49 Urine Bilirubin Neg (Negative) 04/12/23 07:49 Urine Urobilinogen Neg mg/dL (Negative) 04/12/23 07:49 Ur Leukocyte Esterase 2+ (Negative) H 04/12/23 07:49 Urine RBC >100 /hpf (0-2) H 04/12/23 07:49 Urine WBC Too numerous to cnt /hpf (0-5) H 04/12/23 07:49 Ur Squamous Epith Cells 0-4 /hpf (0-5) H 04/12/23 07:49 Amorphous Sediment Not Reportable 04/12/23 07:49 Urine Bacteria 1+ /hpf (NONE) H 04/12/23 07:49 Urine Mucus 1+ /hpf 04/12/23 07:49 Vitals Last Vital Signs Temp 97.9 F 04/13/23 11:38 Pulse 71 04/13/23 11:38 Resp 16 04/13/23 11:38 BP 171/68 04/13/23 11:38 Pulse Ox 94 04/13/23 11:38 O2 Del Method Room Air 04/13/23 11:38 Discharge Plan Discharge Patient Disposition: Home Condition: Stable Prescriptions: New atorvastatin 40 mg Tablet 40 mg PO BEDTIME Qty: 30 0RF clopidogrel 75 mg Tablet 75 mg PO DAILY Qty: 30 0RF cefpodoxime 200 mg tablet 200 mg PO BID 7 Days Qty: 14 0RF Rx Instructions: must administer with a meal/food Continued levothyroxine [Synthroid] 88 mcg tablet 88 mcg PO DAILY glyburide 2.5 mg tablet 2.5 mg PO BID metoprolol succinate 50 mg tablet extended release 24 hr 50 mg PO DAILY tamsulosin 0.4 mg capsule 0.4 mg PO DAILY (DME) Diabetic shoes and 3 pairs of inserts See Rx Instructions .Route .MEDSUPPLY Qty: 1 0RF Rx Instructions: As directed HOME simvastatin 10 mg tablet 10 mg PO DAILY ferrous gluconate 240 mg (27 mg iron) Tablet 240 mg PO DAILY Adult Aspirin Regimen 81 mg tablet,delayed release (DR/EC) 81 mg PO DAILY Qty: 30 0RF lisinopril 10 mg tablet 10 mg PO DAILY Discharge Orders: Discharge Order (Routine); Ordered 04/13/23 Ordered By: Karen Ozuna Referrals: [facility] [Other] (We have sent a referral to Dr. Kearns's office to see you. If you have not heard from them within 3 business days, please call them at [phone] to follow up. We would like for them to see you within 1-2weeks of discharge. If you need further assistance with this follow up, please call DARLYN [employer] account manager at [facility] at [phone].) Celia Louis MD [Primary Care Provider] - 04/18/23 1:15 pm (If they can get you in sooner on a cancellation, they will give you a call. ) DatarDillon MD [Physician] - 1 week (We have notified your physician's clinic of the need for a follow-up appointment to be scheduled. If you have not heard from them within the next 2 business days, please call them directly. ) Discharge Diet: Cardiac Discharge Activity: Resume usual activity Patient Instructions: Cefpodoxime Proxetil (By mouth), Atorvastatin (By mouth), Clopidogrel (By mouth), Stroke (GEN), Opioid Safety, Stroke Stoplight Activity Restrictions/Additional Instructions: You are being tested for TB. Please isolate yourself until results are back. Discharge Attestations Time Spent in Discharge Care*: greater than 30 min Status at Discharge: Cognitive status at discharge: cognitively intact , Behavioral status at discharge: cooperative , Quality Metrics Clinical Quality Measures [ No reported AMI, CVA or VTE this stay] Coding Level of Care Code 34470 Total time (in minutes) for Discharge: 40 Diagnoses CVA (cerebral vascular accident) I63.9 Carotid stenosis I65.29 UTI (urinary tract infection) N39.0; R31.9 Hematuria presence: with hematuria Urinary tract infection type: site unspecified Chronic kidney disease N18.9 Diabetes E11.9 Thyroid disease E07.9 Lymphoma C85.90
[2023-04-16 13:59] LABS: Quantiferon Mitogen >10.00 IU/mL; Quantiferon Plus TB2 0.01 IU/mL; Quantiferon TB Gold NEGATIVE (NEGATIVE)
== END 2023-04-13 16:04 | disposition home or self-care (01) ==
LOC: ER 10:34 → MEDSURG 15:17
PROVIDERS: Admitting Provider Internal Medicine; Emergency Provider Emergency Medicine; PCP Family Medicine; Visit Provider Internal Medicine
DX: I63.9 Cerebral infarction, unspecified (principal); R29.703 NIHSS score 3; I65.29 Occlusion and stenosis of unspecified carotid artery; N39.0 Urinary tract infection, site not specified; R31.9 Hematuria, unspecified; E11.22 Type 2 diabetes mellitus with diabetic chronic kidney disease; I12.9 Hypertensive chronic kidney disease with stage 1 through stage 4 chronic kidney disease, or unspecified chronic kidney disease; N18.9 Chronic kidney disease, unspecified; C85.90 Non-Hodgkin lymphoma, unspecified, unspecified site; E03.9 Hypothyroidism, unspecified; M19.90 Unspecified osteoarthritis, unspecified site; Z87.440 Personal history of urinary (tract) infections; Z79.82 Long term (current) use of aspirin; Z87.891 Personal history of nicotine dependence
CPT/HCPCS: 36415; 36416; 70450; 70496; 70498; 71045; 74176; 80053; 80061; 81001; 82962; 84443; 85025; 85610; 85730; 86480; 87086; 92523; 92610; 93005; 93306; 96365; 96372; 97110; 97161; 97165; 99285; G0378; J0696; J1650; J7030; Q9967

== ENCOUNTER → 2023-05-28 15:32 | Outpatient (BNVA) | payer MEDICARE, SELFPAY | PROVIDERS: PCP Family Medicine; Visit Provider Internal Medicine Pulmonary Disease | DX: R06.02 Shortness of breath | CPT/HCPCS: 36415; 71046; 82785; 85025; 86003; 99204 ==

== ENCOUNTER 2023-06-11 08:00 | Outpatient (CLI) | payer MEDICARE, SELFPAY ==
--- NOTE | 2023-06-11 08:00 | PETR_ITS ---
PROCEDURE INFORMATION: Exam: PET/CT Skull Base to Mid-thigh Exam date and time: 06/11/2023 8:49 AM Age: 68 years old Clinical indication: Abnormal radiologic finding. Evaluate centrally cavitary pulmonary nodules in the right lower lobe noted on CT abdomen pelvis on 04/12/2023. Productive cough and shortness of breath on 05/28/2023. History of lymphoma and endometrial cancer. LABS AND CLINICAL REPORTS: Glucose: 212 mg/dl Treatment strategy for malignancy (PET staging): Initial Staging (PI) TECHNIQUE: Imaging protocol: Following at least four-hour fasting and following the injection of radiopharmaceutical, low dose CT images were obtained. Then, PET images were obtained. Attenuation corrected images were constructed using the CT scan. Fused images of PET and CT were reviewed. The standardized uptake values (SUV) reported below are maximum values within a region of interest, expressed in gm/ml. Exam includes orbital meatal line to mid-thigh. Radiopharmaceutical: 13.94 mCi F-18 FDG (Fluorodeoxyglucose), IV. Time of imaging post radiopharmaceutical administration: 1 hour Injection site: Right antecubital vein COMPARISON: CT abdomen pelvis 04/12/2023, CTA chest 05/11/2022, CT chest abdomen pelvis 03/16/2022 FINDINGS: Brain: Visualized brain has normal physiologic uptake. Paranasal sinuses: No abnormal uptake. Mucosal thickening in bilateral maxillary and ethmoid sinuses with no air-fluid level suggestive of chronic sinusitis. Pharynx: No abnormal uptake. Larynx: No abnormal uptake. Thyroid: No abnormal uptake. The right lobe is not visualized for correlation with history of prior hemithyroidectomy. The left lobe is normal in size. Lungs, pleura and trachea: No abnormal uptake. Centrally cavitary nodules in the right lower lobe noted on the prior exam on 04/12/2023 are not present on the prior exam. There is new mild right pleural effusion. Heart: Normal physiologic uptake. Mild cardiomegaly. Mild coronary artery calcification is present. There is no pericardial effusion. Mediastinal space: No abnormal uptake. There is a small hiatal hernia. Liver: No abnormal uptake. Gallbladder and bile ducts: No abnormal uptake. Status post cholecystectomy. Pancreas: No abnormal uptake. Spleen: No abnormal uptake. Mild splenomegaly (13.4 cm, previously 15.4 cm in 2022). Adrenal glands: No abnormal uptake. No nodules. Kidneys and ureters: Normal physiologic uptake. Moderate left hydronephrosis and mild left hydroureter not progressive since 04/12/2023. 1.3 cm soft tissue fullness in the area of the left distal ureter immediately above the ureterovesical junction on axial image 207 is not FDG avid (3.2 SUV). Stomach and bowel: No abnormal uptake. No abnormal dilatation of the bowel. Intraperitoneal and retroperitoneal spaces: No abnormal uptake. No ascites. Bladder: Normal physiologic uptake. Reproductive: No abnormal uptake. The uterus and the ovaries are absent post surgically. Vasculature: No abnormal uptake. Lymph nodes: No abnormal uptake. No FDG avid lymphadenopathy in the head, neck, chest, abdomen, pelvis, and extremities. Non nodular irregular shaped soft tissue density in the mesentery in the right/central abdomen (axial image 162-168) is non FDG avid (2.1 SUV) and stable in size since 2021 suggestive of benign finding. Bones/joints: No abnormal uptake in the visualized axial and appendicular skeleton. Soft tissues: There is extravasation of injected FDG in the right arm. [facility] [id number] IMPRESSION: No abnormal radiotracer uptake to suggest viable malignancy. Centrally cavitary lung nodules in the right lower lobe documented on 04/12/2023 have resolved compatible with benign inflammatory nature. In comparison with 04/12/2023 there is new mild right pleural effusion. Chronic mesenteric soft tissue density with no abnormal FDG uptake is compatible with benign finding.
== END 2023-06-11 08:01 | disposition home or self-care (01) ==
LOC: RAD 08:00
PROVIDERS: PCP Family Medicine; Visit Provider Internal Medicine Pulmonary Disease
DX: R91.8 Other nonspecific abnormal finding of lung field (principal); R06.02 Shortness of breath; R05.9 Cough, unspecified; J90 Pleural effusion, not elsewhere classified; Z85.42 Personal history of malignant neoplasm of other parts of uterus; Z85.72 Personal history of non-Hodgkin lymphomas
CPT/HCPCS: 78815; A9552

== ENCOUNTER 2023-06-13 06:54 | Outpatient (CLI) | payer MEDICARE, SELFPAY | END 2023-06-13 06:55 | disposition home or self-care (01) | PROVIDERS: PCP Family Medicine; Visit Provider Internal Medicine Pulmonary Disease | DX: R06.02 Shortness of breath (principal) | CPT/HCPCS: 94010; 94618; 94726; 94729 ==

== ENCOUNTER 2023-07-24 11:18 | Outpatient (CLI) | payer MEDICARE, SELFPAY ==
--- NOTE | 2023-07-24 11:15 | CTR_ITS ---
PROCEDURE INFORMATION: Exam: CT Chest Without Contrast; Diagnostic Exam date and time: 07/24/2023 12:05 PM Age: 68 years old Clinical indication: Abnormal findings; Lung mass or nodule; Single or solitary nodule; Prior surgery; Surgery date: 6+ months; Surgery type: Port; Patient HX: HX of hodgkins and non hodgkins lymphoma; Additional info: New subcentimeter pulmonary nodules. New since 03/16/2022 TECHNIQUE: Imaging protocol: Diagnostic computed tomography of the chest without contrast. Radiation optimization: All CT scans at this facility use at least one of these dose optimization techniques: automated exposure control; mA and/or kV adjustment per patient size (includes targeted exams where dose is matched to clinical indication); or iterative reconstruction. COMPARISON: [facility] [id number] 06/11/2023 8:49 AM RADIATION DOSE METRICS: Total DLP (mGy-cm): 569.41 FINDINGS: Lungs: Incidental 3 mm calcification right mid lung zone and left lung base unchanged, benign. No new or suspicious nodules detected. Lung aguilar aerated and clear. Pleural spaces: Unremarkable. No pneumothorax. No pleural effusion. Heart: Heart is mildly enlarged unchanged. Mild calcification of coronary arteries. No significant pericardial effusion. Lymph nodes: Unremarkable. No enlarged lymph nodes. Vasculature: Scattered atherosclerotic changes of the thoracic aorta. No aortic aneurysm. Gallbladder and bile ducts: Gallbladder is been removed. Spleen: The spleen is partially visualized and appears mildly enlarged. Bones/joints: Stable small sclerotic bone lesion inferior aspect right scapula likely representing benign bone island. No acute bony abnormalities. Soft tissues: Unremarkable. CT/CT chest con [id number] IMPRESSION: Unremarkable CT examination of the chest. No suspicious pulmonary nodules detected.
== END 2023-07-24 11:19 | disposition home or self-care (01) ==
LOC: RAD 11:19
PROVIDERS: PCP Family Medicine; Visit Provider Internal Medicine Pulmonary Disease
DX: J98.4 Other disorders of lung (principal); Z91.89 Other specified personal risk factors, not elsewhere classified; I51.7 Cardiomegaly; R16.1 Splenomegaly, not elsewhere classified
CPT/HCPCS: 71250

== ENCOUNTER → 2023-07-25 13:21 | Outpatient (BNVA) | payer MEDICARE, SELFPAY | PROVIDERS: PCP Family Medicine; Visit Provider Internal Medicine Pulmonary Disease | DX: J82.83 Eosinophilic asthma (principal); J98.4 Other disorders of lung; Z91.89 Other specified personal risk factors, not elsewhere classified; C85.90 Non-Hodgkin lymphoma, unspecified, unspecified site | CPT/HCPCS: 99214 ==

== ENCOUNTER 2023-08-06 17:23 | Outpatient (CLI) | payer MEDICARE, SELFPAY ==
[2023-08-06 18:56] LABS: Glucose Urine UA 1+ (Normal); Protein Urine 1+ (Negative); Specific Gravity, Urine 1.015 (1.005-1.030); Urine Appearance Cloudy (CLEAR); Urine Color Light yellow (Yellow); pH Urine 6 (5-7)
[2023-08-06 18:57] LABS: Add Urine Microscopic? YES; Bilirubin Urine Neg (Negative); Blood Urine 3+ (Negative); Leukocyte Esterase Urine 2+ (Negative); Nitrate Urine Positive (Negative); Urobilinogen Urine Norm (Negative)
[2023-08-06 19:03] LABS: Bacteria Urine 1+ /hpf; RBC Urine 25-40 /hpf (0-2); WBC Urine TOO NUMEROUS TO CNT /hpf (0-5)
[2023-08-06 19:04] LABS: Add Urine Culture? Yes
[2023-08-06 21:16] LABS: Ketones Urine Negative (Negative)
== END 2023-08-06 17:24 | disposition home or self-care (01) ==
LOC: LAB 17:24
PROVIDERS: PCP Family Medicine; Visit Provider Family Medicine
DX: N13.6 Pyonephrosis (principal); Z79.899 Other long term (current) drug therapy
CPT/HCPCS: 81001; 87077; 87086; 87186

== ENCOUNTER 2024-01-16 15:10 | Emergency (ER) | payer MEDICARE, SELFPAY ==
[2024-01-16 15:14] VITALS: PULSE 83; RESP 18; TEMP 36.8; O2SAT 96; BMI 42.1
[2024-01-16 15:35] LABS: Basophils % 0.3 %; Eosinophils # 0.1 10^3/uL (0.0-0.8); Eosinophils % 1.3 %; Hematocrit 26.1 % (36-47); Lymphocytes # 2.7 10^3/uL (0.8-4.8); Mean Corpuscular HGB Conc 29.5 g/dL (30-55); Mean Corpuscular Hemoglobin 27.8 pg (27-33); Mean Corpuscular Volume 94.2 fl (85-98); Mean Platelet Volume 11.2 fL (7.4-10.4); Monocytes # 1.8 10^3/uL (0.2-0.9); Monocytes % 23.8 %; Neutrophils # 2.86 10^3/uL (1.8-7.7); Neutrophils % 38.1 %; Nucleated Red Blood Cells % 0 %; Platelet Count 139 10^3/cmm (157-399); Red Blood Count 2.77 10^6/uL (3.85-5.65); Red Cell Distribution Width 17.2 % (12.1-15.1); White Blood Count 7.52 10^3/uL (3.29-11.43)
[2024-01-16 15:53] LABS: INR 1.07 (0.8-1.2); Partial Thromboplastin Time 27.4 SECONDS (23.9-36.7)
[2024-01-16 16:01] LABS: Alanine Aminotransferase 8 U/L (0-33); Albumin Level 3.6 g/dL (3.5-5.2); Alkaline Phosphatase 102 U/L (35-105); Anion Gap 14.1 (5-19); Aspartate Amino Transferase 14 U/L (0-32); Blood Urea Nitrogen 13 mg/dL (8-23); Calcium 8.1 mg/dL (8.5-10.5); Carbon Dioxide 24 mmol/L (22-29); Chloride 106 mmol/L (98-107); Creatinine Clr Calc Pharmacy 41.1112; Globulin 3.6 g/dL (1.3-4.6); Glomerular Filtration Rate 34.3 mL/min (90-130); Glucose 168 mg/dL (65-115); Iron 49 ug/dL (37-145); Osmolality Calculated 294 mOsm/kg (285-295); Percent Saturation 25.7 % (20-50); Potassium 4.1 mmol/L (3.5-5.1); Sodium 140 mmol/L (136-145); Total Bilirubin 0.4 mg/dL (0.15-1.2); Total Iron Binding Capacity 190 mcg/dl; Total Protein 7.2 g/dL (6.6-8.7); Unsaturated Iron Binding 141 ug/dL (112-347)
--- NOTE | 2024-01-16 16:06 | ED_ITS ---
HPI - Recheck/Abnormal Lab/Rx 2 General: Chief Complaint: Recheck/Abnormal Lab/Rx Stated Complaint: low hemoglobin Time Seen by Provider: 01/16/24 15:15 History of Present Illness: 68-year-old female with a history of hyp ertension, hyperlipidemia, diabetes and obesity who presents to the emergency room from detention with concerns for anemia. She had a draw the other day that was in the mid sevens and they did not have anyone to draw blood today so she was sent to the emergency room. She says she may be a little bit weaker than normal but really has not had much change. There is also report of some bright red blood per rectum. She has had no abdominal pain. No dizziness. No chest pain. She has no cardiac history. Related Data Home Medications Medication Instructions Recorded Confirmed levothyroxine 88 mcg tablet 88 mcg PO DAILY 10/26/19 07/25/23 (Synthroid) glyburide 2.5 mg tablet 2.5 mg PO BID 09/05/20 07/25/23 metoprolol succinate 50 mg 50 mg PO DAILY 04/30/22 07/25/23 tablet,extended release 24 hr tamsulosin 0.4 mg capsule 0.4 mg PO DAILY 04/30/22 07/25/23 lisinopril 10 mg tablet 10 mg PO DAILY 05/11/22 07/25/23 ferrous gluconate 240 mg (27 mg 240 mg PO DAILY 04/12/23 07/25/23 iron) tablet Previous Rx's Medication Instructions Recorded Diabetic shoes and 3 pairs of #1 ea 05/04/22 inserts aspirin 81 mg tablet,delayed 81 mg PO DAILY #30 tabs 04/13/23 release (Adult Aspirin Regimen) atorvastatin 40 mg tablet 40 mg PO BEDTIME #30 tabs 04/13/23 albuterol sulfate 90 mcg/actuation 2 puff inhalation Q6H PRN 05/28/23 aerosol inhaler (Ventolin HFA) shortness of breath or wheezing #8.5 grams budesonide-formoterol HFA 80 2 puff inhalation BID #10.2 grams 05/28/23 mcg-4.5 mcg/actuation aerosol inhaler (Symbicort) doxycycline hyclate 100 mg tablet 100 mg PO BID #14 tabs 05/28/23 prednisone 10 mg tablet 10 mg PO DAILY #11 tabs 05/28/23 Allergies Allergy/AdvReac Type Severity Reaction Status Date / Time adhesive tape Allergy rash Verified 07/25/23 13:53 ciprofloxacin [From Cipro] Allergy peeling of Verified 07/25/23 13:53 hands and feet latex Allergy ALGY-Rash Verified 07/25/23 13:53 sulfamethoxazole Allergy doesn't Verified 07/25/23 13:53 [From Bactrim] work trimethoprim [From Bactrim] Allergy doesn't Verified 07/25/23 13:53 work tegraderm Allergy Unknown Uncoded 07/25/23 13:53 Review of Systems 2 Narrative: Constitutional symptoms: Negative except as documented in HPI. Skin symptoms: Negative except as documented in HPI. Eye symptoms: Negative except as documented in HPI. ENMT symptoms: Negative except as documented in HPI. Respiratory symptoms: Negative except as documented in HPI. Cardiovascular symptoms: Negative except as documented in HPI. Gastrointestinal symptoms: Negative except as documented in HPI. Genitourinary symptoms: Negative except as documented in HPI. Musculoskeletal symptoms: Negative except as documented in HPI. Neurologic symptoms: Negative except as documented in HPI. Psychiatric symptoms: Negative except as documented in HPI. Endocrine symptoms: Negative except as documented in HPI. PFSH ED 2 PFSH: Medical History Lymphoma Diabetes History of endometrial cancer DJD (degenerative joint disease) Chronic kidney disease Chronic UTI Hypertension Anemia History of nonmelanoma skin cancer Hodgkin lymphoma Thyroid disease Arthritis Surgical History History of cholecystectomy H/O: hysterectomy Family History Mother Diabetes Other Cancer Social History Smoking and tobacco/nicotine status: former use of tobacco/nicotine Quit status (tobacco/nicotine): has quit using Year quit tobacco: 1979 Former quit date comment: 0.5ppd X 1 year Alcohol intake: never Physical Exam 2 Narrative: EXAM NARRATIVE: General: Alert, no acute distress. Skin: Warm, dry. Head: Normocephalic, atraumatic. Neck: Supple, trachea midline. Eye: Extraocular movements are intact. Ears, nose, mouth and throat: mucosa moist. Cardiovascular: Regular, Normal peripheral perfusion. Respiratory: Lungs are clear to auscultation, respirations are non-labored, breath sounds are equal, Symmetrical chest wall expansion. Gastrointestinal: Soft, Nontender, Non distended Musculoskeletal: Normal ROM, no deformity. Neurological: Alert and oriented, No focal neurological deficit observed. Psychiatric: Cooperative, appropriate mood & affect. Course 2 Vital Signs: Vital signs: Vital Signs Temperature 98.2 F 01/16/24 15:14 Pulse Rate 77 01/16/24 16:46 Respiratory Rate 18 01/16/24 15:14 Blood Pressure 146/67 01/16/24 16:46 Pulse Oximetry 91 01/16/24 16:46 Oxygen Delivery Me thod Room Air 01/16/24 15:14 MDM - Recheck/Abnormal Lab/Rx Medical Decision Making Medical decision making: Differential diagnosis including but not limited to and based on the above HPI, review of systems and physical exam: Repeating CBC to rule out if she needs transfused or not. BMP to look at renal function if she has had a recent upper GI bleed her BUN should be elevated. Orders placed to evaluate differential diagnosis based on the above differential, HPI and physical exam Lab Review: Laboratory results were reviewed and interpreted by myself the emergency room physician. Stable anemia at 7.7. She has been drifting down. At some point she likely will need transfused but she does not have coronary artery disease and she is relatively asymptomatic and so will not transfuse today. I reviewed the patient's medical record. Reexamination: Patient remained stable. No increased work of breathing. No altered mental status. No focal motor deficits. Assessment and plan: Anemia Continue to monitor hemoglobin levels and if they drop below 7 she should be transfused. B12 and folate are pending but these can be followed by her primary care physician. -Also discussion with blood bank that if patient does need transfused at some point she will need to be sent to [place] as she has multiple antibodies etc. - Discharged home - Discussed plan with patient. Answered any questions. - Evaluation and treatment of this problem were appropriate in the emergency setting. Lab Data 01/16/24 15:28 01/16/24 15:28 Laboratory Results WBC 7.52 10^3/uL (3.29-11.43) 01/16/24 15:28 RBC 2.77 10^6/uL (3.85-5.65) L 01/16/24 15: Hgb 7.70 g/dL (11.27-16.99) L 01/16/24: Hct 26.1 % (36-47) L 01/16/24: MCV 94.2 fl (85-98) 01/16/24 15: MCH 27.8 pg (27-33) 01/16/24 15: MCHC 29.5 g/dL (30-55) L 01/16/24 15: RDW 17.2 % (12.1-15.1) H 01/16/24 15: Plt Count 139 10^3/cmm (157-399) L 01/16/24: MPV 11.2 fL (7.4-10.4) H 01/16/24: Neut % (Auto) 38.1 % 01/16/24: Lymph % (Auto) 36.0 % 01/16/24: [place] % (Auto) 23.8 % 01/16/24: Eos % (Auto) 1.3 % 01/16/24: Baso % (Auto) 0.3 % 01/16/24: Neut # (Auto) 2.86 10^3/uL (1.8-7.7) 01/16/24: Lymph # (Auto) 2.7 10^3/uL (0.8-4.8) 01/16/24: [place] # (Auto) 1.8 10^3/uL (0.2-0.9) H 01/16/24: Eos # (Auto) 0.1 10^3/uL (0.0-0.8) 01/16/24: Baso # (Auto) 0.0 10^3/uL (0.0-0.1) 01/16/24: Nucleated RBC % (auto) 0 % 01/16/24: Nucleated RBCs # 0.0 /100WBC 01/16/24: PT 14.20 SECONDS (12.1-14.9) 01/16/24: INR 1.07 (0.8-1.2) 01/16/24 15:28 APTT 27.4 SECONDS (23.9-36.7) 01/16/24 15:28 Sodium 140 mmol/L (136-145) 01/16/24 15:28 Potassium 4.1 mmol/L (3.5-5.1) 01/16/24 15:28 Chloride 106 mmol/L (98-107) 01/16/24 15:28 Carbon Dioxide 24 mmol/L (22-29) 01/16/24 15:28 Anion Gap 14.1 (5-19) 01/16/24 15:28 BUN 13 mg/dL (8-23) 01/16/24 15:28 Creatinine 1.5 mg/dL (0.5-0.9) H 01/16/24 15:28 GFR Calculation 34.3 mL/min (90-130) L 01/16/24 15:28 Glucose 168 mg/dL (65-115) H 01/16/24 15:28 Calculated Osmolality 294 mOsm/kg (285-295) 01/16/24 15:28 Calcium 8.1 mg/dL (8.5-10.5) L 01/16/24 15:28 Iron 49 ug/dL (37-145) 01/16/24 15:28 TIBC 190 mcg/dl 01/16/24 15: % Saturation 25.7 % (20-50) 01/16/24 15: Unsat Iron Binding 141 ug/dL (112-347) 01/16/24 15:28 Total Bilirubin 0.4 mg/dL (0.15-1.2) 01/16/24 15:28 AST 14 U/L (0-32) 01/16/24 15:28 ALT 8 U/L (0-33) 01/16/24 15:28 Alkaline Phosphatase 102 U/L (35-105) 01/16/24 15:28 Total Protein 7.2 g/dL (6.6-8.7) 01/16/24 15:28 Albumin 3.6 g/dL (3.5-5.2) 01/16/24 15:28 Globulin 3.6 g/dL (1.3-4.6) 01/16/24 15:28 Vitamin B12 330 pg/mL (232-1245) 01/16/24 15:28 Folate 5.9 ng/mL (4.8-37.3) 01/16/24 15:28 Blood Type A Positive 01/16/24 15:28 Rho(D) Type Rh positive 01/16/24 15:28 Antibody Screen Positive 01/16/24 15:28 Antibody Identification Cold Antibody 01/16/24 15:28 Cold Antibody Screen Positive 01/16/24 15:28 RAYMOND, IgG Interpret Positive-igg 01/16/24 15:28 RAYMOND, Poly Interpret Pos-polyspecific 01/16/24 15:28 RAYMOND, Complement Interp Negative 01/16/24 15:28 No radiology studies performed this visit Discharge Plan Discharge Patient Disposition: Home Clinical Impression: Anemia Condition: Stable Prescriptions: No Action levothyroxine [Synthroid] 88 mcg tablet 88 mcg PO DAILY glyburide 2.5 mg tablet 2.5 mg PO BID metoprolol succinate 50 mg tablet extended release 24 hr 50 mg PO DAILY tamsulosin 0.4 mg capsule 0.4 mg PO DAILY doxycycline hyclate 100 mg tablet 100 mg PO BID Qty: 14 0RF budesonide-formoterol [Symbicort] 80-4.5 mcg/actuation HFA aerosol inhaler 2 puff inhalation BID Qty: 10.2 3RF albuterol sulfate [Ventolin HFA] 90 mcg/actuation HFA aerosol inhaler 2 puff inhalation Q6H PRN (Reason: shortness of breath or wheezing) Qty: 8.5 3RF prednisone 10 mg tablet 10 mg PO DAILY Qty: 11 0RF Rx Instructions: 2 tabs x 10 mg = 20 mg x 3 days 1 tab x 10 mg = 10 mg x 5 days (DME) Diabetic shoes and 3 pairs of inserts See Rx Instructions .Route .MEDSUPPLY Qty: 1 0RF Rx Instructions: As directed HOME ferrous gluconate 240 mg (27 mg iron) Tablet 240 mg PO DAILY atorvastatin 40 mg Tablet 40 mg PO BEDTIME Qty: 30 0RF Adult Aspirin Regimen 81 mg tablet,delayed release (DR/EC) 81 mg PO DAILY Qty: 30 0RF lisinopril 10 mg tablet 10 mg PO DAILY Discharge Orders: Discharge ED (Routine); Ordered 01/16/24 Ordered By: Radha Gray Referrals: Celia Louis MD [Primary Care Provider] - 4-7 days Discharge Diet: Usual diet Discharge Activity: Increase activity as tolerated Patient Instructions: Anemia (ED) Activity Restrictions/Additional Instructions: Thank you for choosing [facility] for your healthcare needs today. Please realize this is an emergency room and that we are providing you with a medical screening exam and this may not be complete and all inclusive of all the testing and or work up that you may need to determine your ailment or severity of your illness. You have been screened and evaluated and felt safe for discharge. Health conditions do change or evolve sometimes and as such it is important that you follow up with your Primary Doctor to be re checked, 3-5 days is a general good time frame for follow up. You are always welcome to return to the ED for re assessment if your symptoms are worsening or you have new concerns Coding Level of Care Code ED Senior Manufacturing Engineer for Mykel Vitale
[2024-01-16 16:14] LABS: Vitamin B12 330 pg/mL (232-1245)
[2024-01-16 16:15] LABS: Folate Level 5.9 ng/mL (4.8-37.3)
[2024-01-16 16:46] VITALS: BP 146/67; PULSE 77; O2SAT 91
== END 2024-01-16 16:47 | disposition home or self-care (01) ==
PROVIDERS: Emergency Provider Emergency Medicine; PCP Family Medicine
DX: D64.9 Anemia, unspecified (principal); K62.5 Hemorrhage of anus and rectum
CPT/HCPCS: 80053; 82607; 82746; 83540; 83550; 85025; 85610; 85730; 86850; 86870; 86880; 86900; 99283

== ENCOUNTER → 2024-02-04 08:03 | Outpatient (BNVA) | payer MEDICARE, SELFPAY | PROVIDERS: PCP Family Medicine; Visit Provider Thoracic Surgery (Cardiothoracic Vascular Surgery) | DX: I96 Gangrene, not elsewhere classified (principal); L98.491 Non-pressure chronic ulcer of skin of other sites limited to breakdown of skin | CPT/HCPCS: 97597; 97598; 99213; A6212 ==

== ENCOUNTER → 2024-02-14 09:39 | Outpatient (BNVA) | payer MEDICARE, SELFPAY | PROVIDERS: PCP Family Medicine; Visit Provider Thoracic Surgery (Cardiothoracic Vascular Surgery) | DX: Z09 Encounter for follow-up examination after completed treatment for conditions other than malignant neoplasm (principal); Z87.2 Personal history of diseases of the skin and subcutaneous tissue | CPT/HCPCS: 99212 ==

== ENCOUNTER 2024-05-11 07:43 | Inpatient (IN) | payer MEDICARE, SELFPAY ==
[2024-05-11] VITALS (38 sets, daily range): BP systolic 135–180; BP diastolic 55–86; PULSE 62–93; RESP 6–24; TEMP 36.7–37; O2SAT 93–99; BMI 45.8
--- NOTE | 2024-05-11 07:47 | ECG_ITS ---
[facility] Test Date: 2024-05-11 Pat Name: Macey Brush Department: Room: Gender: Female Mercerizing Range Feeder: : 1955 Requested By: Ignacio Ramos Order Number: [id number] Zaki MD: Kishore Rene M.D. Measurements Intervals [place] Rate: 65 P: 0 GA: 0 QRS: -78 QRSD: 153 T: 32 QT: 450 QTc: 470 Interpretive Statements UNCERTAIN REGULAR RHYTHM-Possibly sinus RIGHT BUNDLE BRANCH BLOCK [120+ ms QRS DURATION, UPRIGHT V1, 40+ ms S IN I/aVL/V4/V5/V6] LEFT ANTERIOR FASCICULAR BLOCK [QRS AXIS <= -45, QR IN I, RS IN II] POSSIBLE ANTEROSEPTAL MYOCARDIAL INFARCTION , OF INDETERMINATE AGE [30 ms Q WAVE IN V1-V4] Compared to ECG 04/12/2023 06:50:29 Left anterior fascicular block now present Myocardial infarct finding now present Left-axis deviation no longer present Electronically Signed On 05-11-2024 11:22:17 BUCK PRESSER by Kishore Rene M.D. [email or web address]
--- NOTE | 2024-05-11 07:48 | CTR_ITS ---
PROCEDURE INFORMATION: Exam: CT Head Without Contrast Exam date and time: 05/11/2024 7:41 AM Age: 69 years old Clinical indication: Stroke-like symptoms; RT upper extremity and RT lower extremity weakness; Additional info: Acute symptoms of stroke. PT woke up at 7am with right sided weakness TECHNIQUE: Imaging protocol: Computed tomography of the head without contrast. Total images: 293 Radiation optimization: All CT scans at this facility use at least one of these dose optimization techniques: automated exposure control; mA and/or kV adjustment per patient size (includes targeted exams where dose is matched to clinical indication); or iterative reconstruction. Other technique: STROKE PROTOCOL was implemented. COMPARISON: CT angio headneck* [id number] 04/12/2023 7:03 AM RADIATION DOSE METRICS: Total DLP (mGy-cm): 1167.46 FINDINGS: Brain: Global brain atrophy and chronic white matter ischemic changes are present. Cerebral ventricles: Ventricles are appropriate in size for degree of atrophy. Paranasal sinuses: Mucosal thickening of the paranasal sinuses. Mastoid air cells: Visualized mastoid air cells are well aerated. Bones: Unremarkable. No acute fracture. Soft tissues: Unremarkable. CT/CT head thrombolytic [id number] IMPRESSION: No acute intracranial pathology detected. ASSESSMENT: ASPECTS ([place] Stroke Program Early CT Score) is 10.
--- NOTE | 2024-05-11 07:48 | W.ED.NEUROSD ---
HPI - Neuro Symptoms/Deficit General: Chief Complaint: Neuro Symptoms/Deficit Stated Complaint: Stroke Alert Time Seen by Provider: 05/11/24 07:47 History of Present Illness: 69-year-old female presents to the emergency room with complaints of right-sided weakness stroke alert was called in the field. They report facial drooping and right-sided weakness. Her last known well was last evening at around 11:00 she woke up with symptoms at 7 AM this morning. Numbness in her right arm weakness in her right leg. She has previous CVAs and has residual right facial droop although with testing today she has symmetrical movements at rest there is a noticeable droop she is not on any anticoagulants. She does take aspirin and atorvastatin. She denies chest pain or shortness of breath or recent illness Associated symptoms: Deny chest pain Related Data Home Medications ?Medication ?Instructions ?Recorded ?Confirmed glyburide 2.5 mg tablet 2.5 mg PO BID 09/05/20 05/11/24 metoprolol succinate 50 mg 50 mg PO DAILY 04/30/22 05/11/24 tablet,extended release 24 hr tamsulosin 0.4 mg capsule 0.4 mg PO DAILY 04/30/22 05/11/24 ergocalciferol (vitamin D2) 1,250 1,250 mcg PO Q7D 05/11/24 05/11/24 mcg (50,000 unit) capsule lisinopril 20 mg tablet 20 mg PO DAILY 05/11/24 05/11/24 Previous Rx's ?Medication ?Instructions ?Recorded Diabetic shoes and 3 pairs of #1 ea 05/04/22 inserts aspirin 81 mg tablet,delayed 81 mg PO DAILY #30 tabs 04/13/23 release (Adult Aspirin Regimen) atorvastatin 40 mg tablet 40 mg PO BEDTIME #30 tabs 04/13/23 albuterol sulfate 90 mcg/actuation 2 puff inhalation Q6H PRN 05/28/23 aerosol inhaler (Ventolin HFA) shortness of breath or wheezing #8.5 grams Allergies Allergy/AdvReac Type Severity Reaction Status Date / Time adhesive tape Allergy rash Verified 07/25/23 13:53 ciprofloxacin (From Cipro) Allergy peeling of Verified 07/25/23 13:53 hands and feet latex Allergy ALGY-Rash Verified 07/25/23 13:53 sulfamethoxazole (From Allergy doesn't Verified 07/25/23 13:53 Bactrim) work trimethoprim (From Bactrim) Allergy doesn't Verified 07/25/23 13:53 work tegraderm Allergy Unknown Uncoded 07/25/23 13:53 Review of Systems Const: Denies: fever(s) or chills Card: Denies: chest pain Resp: Denies: dyspnea GI: Denies: abdominal pain : Denies: dysuria, urinary frequency or urinary urgency Musc: Denies: neck pain or back pain Skin/Breast: Denies: rash PFSH ED PFSH: Medical History Lymphoma Diabetes History of endometrial cancer DJD (degenerative joint disease) Chronic kidney disease Chronic UTI Hypertension Anemia History of nonmelanoma skin cancer Hodgkin lymphoma Thyroid disease Arthritis Surgical History History of cholecystectomy H/O: hysterectomy Family History Mother Diabetes Other Cancer Social History Smoking and tobacco/nicotine status: former use of tobacco/nicotine Quit status (tobacco/nicotine): has quit using Year quit tobacco: 1979 Former quit date comment: 0.5ppd X 1 year Alcohol intake: never NIH stroke score NIHSS: Level Of Consciousness - 1a: 0 Level Of Consciousness Questions - 1b: Both Correct Level Of Consciousness Commands - 1c: Both Correct Best Gaze - 2: Normal Visual Roman - 3: No Visual Loss Facial Palsy - 4: Normal Motor Arm Right - 5: Drift Motor Arm Left - 5: No Drift Motor Leg Right - 6: Drift Motor Leg Left - 6: No Drift Limb Ataxia - 7: Absent Sensory - 8: Mild To Moderate Loss Best Language - 9: No Aphasia Dysarthia - 10: Normal Extinction And Inattention - 11: 0 Score: Total Score: 3 Physical Exam Const: COMMON NORMALS: apparent distress GENERAL APPEARANCE: cooperative and comfortable ORIENTATION/CONSCIOUSNESS: Yes awake, Yes oriented to person, Yes oriented to place and Yes oriented to time HENMT: COMMON NORMALS: normocephalic, atraumatic and hearing grossly normal bilaterally HEAD & SCALP: normocephalic and atraumatic Resp: COMMON NORMALS: normal respiratory effort, No retractions, No use of accessory muscles and clear to auscultation bilaterally AUSCULTATION: clear to auscultation bilaterally Cardio: COMMON NORMALS: regular rate, regular rhythm and No murmurs present (Cardio) RATE: regular rate RHYTHM: regular rhythm GI: COMMON NORMALS: Soft to palpation and No hepatosplenomegaly present AUSCULTATION: Yes normoactive bowel sounds PALPATION: Yes Soft to palpation, No Tenderness to palpation present (GI), No Guarding due to palpation present (GI) and Yes No hepatosplenomegaly present Extremity: COMMON NORMALS: normal to inspection, capillary refill normal, no clubbing, cyanosis or edema, no calf tenderness and no pedal edema Neuro: SENSORIUM/ORIENTATION: Yes oriented to person, Yes oriented to place and Yes oriented to time Skin: COMMON NORMALS: no rashes or lesions noted GENERAL SKIN EXAM: no rashes or lesions noted Course Vital Signs: Vital signs: Vital Signs Temperature 98.0 F 05/11/24 08:37 Pulse Rate 69 05/11/24 13:45 Respiratory Rate 17 05/11/24 13:45 Blood Pressure 146/59 05/11/24 13:45 Pulse Oximetry 98 05/11/24 13:45 Oxygen Delivery Me thod Room Air 05/11/24 08:37 MDM - Neuro Symptoms/Deficit Medical Decision Making Patient is a wake-up stroke she is well out of the window for any kind of thrombolytic intervention. Her stroke score at best is 3 however some of this is likely residual from her previous stroke. She is below the threshold for embolectomy. We opted not to do a CTA of the head and neck for this reason additionally she is very concerned about her renal function has been elevated in the past and is somewhat elevated today. She tells me that she is foregone other studies with contrast for just this reason. Place her on observation for acute CVA. She did get an MRA in [place] 2 years ago she is uncertain of what the result was we will try to track this down and get a release of records Medical Records I reviewed the patient's medical records. Lab Data I reviewed the patient's lab results. 05/11/24 08:31 05/11/24 08:[address] 05/11/24 07:48 IMPRESSION: No acute intracranial pathology detected. ASSESSMENT: ASPECTS ([place] Stroke Program Early CT Score) is 10. ADDENDUM: 05/11/24801 ADDENDUM: The findings were verbally communicated via telephone conference at 8:01 AM ENGINEERING SUPERVISOR on 05/11/2024 with JUD HADLEY. The findings were acknowledged and understood. Laboratory Results WBC 7.85 10^3/uL (3.29-11.43) 05/11/24 08:31 RBC 3.87 10^6/uL (3.85-5.65) 05/11/24 08:31 Hgb 10.70 g/dL (11.27-16.99) L 05/11/24 08:31 Hct 31.5 % (36-47) L 05/11/24 08:31 MCV 81.4 fl (85-98) L 05/11/24 08:31 MCH 27.6 pg (27-33) 05/11/24 08:31 MCHC 34.0 g/dL (30-55) 05/11/24 08:31 RDW 14.6 % (12.1-15.1) 05/11/24 08:31 Plt Count 121 10^3/cmm (157-399) L 05/11/24 08:31 MPV 12.3 fL (7.4-10.4) H 05/11/24 08:31 Neut % (Auto) 39.8 % 05/11/24 08:31 Lymph % (Auto) 33.8 % 05/11/24 08:31 [place] % (Auto) 23.1 % 05/11/24 08:31 Eos % (Auto) 1.8 % 05/11/24 08:31 Baso % (Auto) 0.6 % 05/11/24 08:31 Neut # (Auto) 3.13 10^3/uL (1.8-7.7) 05/11/24 08:31 Lymph # (Auto) 2.7 10^3/uL (0.8-4.8) 05/11/24 08:31 [place] # (Auto) 1.8 10^3/uL (0.2-0.9) H 05/11/24 08:31 Eos # (Auto) 0.1 10^3/uL (0.0-0.8) 05/11/24 08:31 Baso # (Auto) 0.1 10^3/uL (0.0-0.1) 05/11/24 08:31 Nucleated RBC % (auto) 0 % 05/11/24 08:31 Nucleated RBCs # 0.0 /100WBC 05/11/24 08:31 PT 12.70 SECONDS (12.1-14.9) 05/11/24 08:31 INR 0.89 (0.8-1.2) 05/11/24 08:31 APTT 26.5 SECONDS (23.9-36.7) 05/11/24 08:31 Sodium 139 mmol/L (136-145) 05/11/24 08:31 Potassium 4.5 mmol/L (3.5-5.1) 05/11/24 08:31 Chloride 104 mmol/L (98-107) 05/11/24 08:31 Carbon Dioxide 21 mmol/L (22-29) L 05/11/24 08:31 Anion Gap 18.5 (5-19) 05/11/24 08:31 BUN 20 mg/dL (8-23) 05/11/24 08:31 Creatinine 1.4 mg/dL (0.5-0.9) H 05/11/24 08:31 GFR Calculation Not Reportable 05/11/24 08:31 Glucose 211 mg/dL (65-115) H 05/11/24 08:31 POC Glucose 180 mg/dL (70-110) H 05/11/24 07:51 Calculated Osmolality 297 mOsm/kg (285-295) H 05/11/24 08:31 Calcium 8.6 mg/dL (8.5-10.5) 05/11/24 08:31 Total Bilirubin 0.4 mg/dL (0.15-1.2) 05/11/24 08:31 AST 8 U/L (0-32) 05/11/24 08:31 ALT 9 U/L (0-33) 05/11/24 08:31 Alkaline Phosphatase 115 U/L (35-105) H 05/11/24 08:31 Total Protein 6.2 g/dL (6.6-8.7) L 05/11/24 08:31 Albumin 3.1 g/dL (3.5-5.2) L 05/11/24 08:31 Globulin 3.1 g/dL (1.3-4.6) 05/11/24 08:31 Urine Color Yellow (Yellow) 05/11/24 10:32 Urine Appearance Turbid (CLEAR) A 05/11/24 10:32 Urine pH 7.5 (5-7) 05/11/24 10:32 Ur Specific [place] 1.014 (1.005-1.030) 05/11/24 10:32 Urine Protein 2+ (Negative) A 05/11/24 10:32 Urine Glucose (UA) Negative (Normal) 05/11/24 10:32 Urine Ketones Negative (Negative) 05/11/24 10:32 Urine Blood 2+ (Negative) A 05/11/24 10:32 Urine Nitrate Positive (Negative) A 05/11/24 10:32 Urine Bilirubin Negative (Negative) 05/11/24 10:32 Urine Urobilinogen 0.2 mg/dL (Negative) 05/11/24 10:32 Ur Leukocyte Esterase 3+ (Negative) A 05/11/24 10:32 Urine RBC 51-100 /hpf (0-2) H 05/11/24 10:32 Urine WBC >100 /hpf (0-5) H 05/11/24 10:32 Ur Squamous Epith Cells 0-5 /hpf (0-5) 05/11/24 10:32 Amorphous Sediment Not Reportable 05/11/24 10:32 Urine Bacteria 2+ /hpf (NONE) H 05/11/24 10:32 Hyaline Casts 5.33 /lpf 05/11/24 10:32 Urine Opiates Screen Negative ng/mL (Negative) 05/11/24 10:32 Ur Barbiturates Screen Negative ng/mL (Negative) 05/11/24 10:32 Ur Phencyclidine Scrn Negative ng/mL (Negative) 05/11/24 10:32 Ur Amphetamines Screen Negative ng/mL (Negative) 05/11/24 10:32 U Benzodiazepines Scrn Negative ng/mL (Negative) 05/11/24 10:32 Urine Cocaine Screen Negative ng/mL (Negative) 05/11/24 10:32 U Marijuana (THC) Screen Negative ng/mL (Negative) 05/11/24 10:32 All radiology interpretation(s) finalized by discharge Discharge Plan Discharge Patient Disposition: Placed in Observation Admit Provider: Petey Obregon Clinical Impression: CVA (cerebral vascular accident) Coding Level of Care Code ED Borderer for Mykel Vitale
[2024-05-11 08:39] LABS: Glucose Point of Care 180 mg/dL (70-110)
[2024-05-11 08:49] LABS: Basophils # 0.1 10^3/uL (0.0-0.1); Basophils % 0.6 %; Eosinophils # 0.1 10^3/uL (0.0-0.8); Eosinophils % 1.8 %; Hematocrit 31.5 % (36-47); Lymphocytes # 2.7 10^3/uL (0.8-4.8); Lymphocytes % 33.8 %; Mean Corpuscular Hemoglobin 27.6 pg (27-33); Mean Corpuscular Volume 81.4 fl (85-98); Mean Platelet Volume 12.3 fL (7.4-10.4); Monocytes # 1.8 10^3/uL (0.2-0.9); Monocytes % 23.1 %; Neutrophils # 3.13 10^3/uL (1.8-7.7); Neutrophils % 39.8 %; Nucleated Red Blood Cells % 0 %; Platelet Count 121 10^3/cmm (157-399); Red Blood Count 3.87 10^6/uL (3.85-5.65); Red Cell Distribution Width 14.6 % (12.1-15.1); White Blood Count 7.85 10^3/uL (3.29-11.43)
[2024-05-11 09:01] LABS: INR 0.89 (0.8-1.2)
[2024-05-11 09:02] LABS: Partial Thromboplastin Time 26.5 SECONDS (23.9-36.7)
[2024-05-11 09:06] LABS: Alanine Aminotransferase 9 U/L (0-33); Albumin Level 3.1 g/dL (3.5-5.2); Alkaline Phosphatase 115 U/L (35-105); Aspartate Amino Transferase 8 U/L (0-32); Blood Urea Nitrogen 20 mg/dL (8-23); Calcium 8.6 mg/dL (8.5-10.5); Carbon Dioxide 21 mmol/L (22-29); Chloride 104 mmol/L (98-107); Creatinine Clr Calc Pharmacy 45.6353; Globulin 3.1 g/dL (1.3-4.6); Glucose 211 mg/dL (65-115); Osmolality Calculated 297 mOsm/kg (285-295); Sodium 139 mmol/L (136-145); Total Bilirubin 0.4 mg/dL (0.15-1.2); Total Protein 6.2 g/dL (6.6-8.7)
[2024-05-11 09:13] LABS: Anion Gap 18.5 (5-19); Potassium 4.5 mmol/L (3.5-5.1)
[2024-05-11 10:53] LABS: Bilirubin Urine Negative (Negative); Blood Urine 2+ (Negative); Glucose Urine UA Negative (Normal); Ketones Urine Negative (Negative); Leukocyte Esterase Urine 3+ (Negative); Nitrate Urine Positive (Negative); Protein Urine 2+ (Negative); Specific Gravity, Urine 1.014 (1.005-1.030); Urine Appearance Turbid (CLEAR); Urine Color Yellow (Yellow); Urobilinogen Urine 0.2 mg/dL (Negative); pH Urine 7.5 (5-7)
[2024-05-11 10:56] LABS: Add Urine Microscopic? YES; Bacteria Urine 2+ /hpf; Hyaline Casts Urine 5.33 /lpf; RBC Urine 51-100 /hpf (0-2); Squamous Epithelial Cell Urine 0-5 /hpf (0-5); WBC Urine >100 /hpf (0-5)
[2024-05-11 10:59] LABS: Amphetamines Screen Urine Negative (Negative); Barbiturates Screen Urine Negative (Negative); Benzodiazepines Screen Urine Negative (Negative); Cocaine Screen Urine Negative (Negative); Opiate Screen Urine Negative (Negative); PCP Screen Urine Negative (Negative); THC Screen Urine Negative (Negative)
[2024-05-11 11:15] LABS: UA Slide Review UA Slide Review Perf
[2024-05-11 11:16] LABS: Add Urine Culture? Yes
[2024-05-11] MEDS: cefTRIAXone 1,000 mg SDV 1000 MG IVP (11:59)
--- NOTE | 2024-05-11 16:05 | PM.HP ---
Providers/Chief Complaint Admitting Physician: Petey Obregon Primary Care Provider: Celia Louis MD Chief Complaint: Stroke Alert History of Present Illness Very pleasant 69-year-old lady with history of CVA back in 2023, with residual right-sided weakness, right-sided facial droop, with history of intracranial arterial stenosis and intervention, previously on aspirin and Plavix, however, Plavix initially were discontinued due to progressive renal dysfunction to stage IV disease, subsequently she also had some lower GI diverticular bleeding with a year ago at which point aspirin was discontinued. She has not been on any antiplatelet medications. Has been on cholesterol medication. She has been monitoring her blood pressures at home. Normally takes lisinopril and metoprolol. At the end of March she was ill with both influenza and COVID. Review of Systems Const: Denies: fever(s), chills, body aches or malaise ENMT: Denies: throat pain Card: Denies: chest pain, edema, pre-syncope or dyspnea on exertion Resp: Denies: dyspnea, productive cough, change in phlegm color or hemoptysis GI: Denies: abdominal pain, nausea, vomiting, diarrhea, constipation, hematochezia or melena : Denies: flank pain, urinary frequency or hematuria Musc: Denies: back pain, joint swelling or joint redness Skin/Breast: Denies: rash or new lesions Neuro: Reports: numbness in extremities and weakness in extremities Medications/Allergies Home Medications ?Medication ?Instructions ?Recorded ?Confirmed ?Last Taken ?Type glyburide 2.5 mg tablet 2.5 mg PO BID 09/05/20 05/11/24 04/11/23 History metoprolol succinate 50 mg 50 mg PO DAILY 04/30/22 05/11/24 04/11/23 History tablet,extended release 24 hr tamsulosin 0.4 mg capsule 0.4 mg PO DAILY 04/30/22 05/11/24 04/11/23 History Diabetic shoes and 3 pairs of #1 ea 05/04/22 05/11/24 Unknown Rx inserts aspirin 81 mg tablet,delayed 81 mg PO DAILY #30 tabs 04/13/23 05/11/24 Unknown Rx release (Adult Aspirin Regimen) atorvastatin 40 mg tablet 40 mg PO BEDTIME #30 tabs 04/13/23 05/11/24 Unknown Rx albuterol sulfate 90 mcg/actuation 2 puff inhalation Q6H PRN 05/28/23 05/11/24 Unknown Rx aerosol inhaler (Ventolin HFA) shortness of breath or wheezing #8.5 grams ergocalciferol (vitamin D2) 1,250 1,250 mcg PO Q7D 05/11/24 05/11/24 Unknown History mcg (50,000 unit) capsule lisinopril 20 mg tablet 20 mg PO DAILY 05/11/24 05/11/24 Unknown History Allergies Allergy/AdvReac Type Severity Reaction Status Date / Time adhesive tape Allergy rash Verified 07/25/23 13:53 ciprofloxacin (From Cipro) Allergy peeling of Verified 07/25/23 13:53 hands and feet latex Allergy ALGY-Rash Verified 07/25/23 13:53 sulfamethoxazole (From Allergy doesn't Verified 07/25/23 13:53 Bactrim) work trimethoprim (From Bactrim) Allergy doesn't Verified 07/25/23 13:53 work tegraderm Allergy Unknown Uncoded 07/25/23 13:53 PFSH Acute PFSH: Medical History Lymphoma Diabetes History of endometrial cancer DJD (degenerative joint disease) Chronic kidney disease Chronic UTI Hypertension Anemia History of nonmelanoma skin cancer Hodgkin lymphoma Thyroid disease Arthritis Surgical History History of cholecystectomy H/O: hysterectomy Family History Mother Diabetes Other Cancer Social History Smoking and tobacco/nicotine status: former use of tobacco/nicotine Quit status (tobacco/nicotine): has quit using Year quit tobacco: 1979 Former quit date comment: 0.5ppd X 1 year Alcohol intake: never Vitals/I&O/Wt Last Vital Signs Temp 98.0 F 05/11/24 08:37 Pulse 71 05/11/24 15:20 Resp 15 05/11/24 15:15 BP 158/69 05/11/24 15:20 Pulse Ox 98 05/11/24 15:20 O2 Del Method Room Air 05/11/24 08:37 Weight last 48 hrs Weight 117.48 kg Physical Exam Narrative: Accompanied by her 2 sisters. Const: COMMON NORMALS: patient oriented x3 and alert GENERAL APPEARANCE: cooperative ORIENTATION/CONSCIOUSNESS: Yes awake HENMT: COMMON NORMALS: oropharynx normal Neck/C-Spine: COMMON NORMALS: no JVD Resp: COMMON NORMALS: normal respiratory effort and clear to auscultation bilaterally AUSCULTATION: clear to auscultation bilaterally Cardio: COMMON NORMALS: no JVD, regular rhythm, S1 normal heart sound present, S2 normal heart sound present and No murmurs present (Cardio) RHYTHM: regular rhythm HEART SOUNDS: S1 normal heart sound present and S2 normal heart sound present GI: COMMON NORMALS: Normal to inspection, nondistended, normoactive bowel sounds present, Soft to palpation and non-tender PALPATION: Yes Soft to palpation Extremity: COMMON NORMALS: no joint enlargement and no pedal edema Neuro: COMMON NORMALS: patient oriented x3 and moves all extremities SENSORIUM/ORIENTATION: Yes alert OTHER: She follows directions readily, no difficulty with horizontal tracking. FNF normal, minimally slightly slowed on the right compared to the left. Visual aguilar full to confrontation. No visual extinction. No upper extremity drift, although does report some still minimal residual subjective weakness in her hand. Right lower extremity with minimal drift compared to the left. Sensory exam symmetrical, without sensory extinction. Skin: COMMON NORMALS: no rashes or lesions noted GENERAL SKIN EXAM: no rashes or lesions noted Data 05/11/24 08:31 05/11/24 08:31 A&P Assessment and plan (1) CVA (cerebral vascular accident): Acute right-sided weakness, numbness, with gradual improvement in symptoms. Found this morning after waking up, last known normal around 11 PM last night troponin asleep. Stroke code was called, was assessed in ER, not found to be candidate for acute intervention. Reviewed CT head, POC glucose, vitals, CBC, INR, CMP, UA, UDS, EKG, ER provider note, discussed with ER provider. She had previously been discontinued off of all antiplatelets, although in the past did have endovascular procedure on her cerebral arterial circulation, although denies stent placement. Reports had PCI at [facility]. Was initially on aspirin and Plavix, Plavix was reportedly stopped due to renal dysfunction. Subsequently aspirin was stopped after diverticular bleed. Currently not on any antiplatelet. Discussed with her and her sisters risk of possible bleeding, trial of aspirin. They are agreeable to try. Start 160 mg, monitor for risk of bleeding. Reassess blood counts. Continue statin. Permissive hypertension current time, long-term will need to target blood pressure 120/80. With multiple prior CVA additional assessment with echo bubble study, monitor on telemetry currently, consider monitor at discharge, assess carotid duplex with prior arterial cerebrovascular insufficiency and currently recurrent CVA. She had just been recovering from COVID and flu at the March, possible trigger for the current CVA. PT, OT, ST assessment. Discussed with her would benefit from follow-up with neurology as well. (2) UTI (urinary tract infection): Abnormal UA, 51-100 RBC, monitor 100 WBC, ureteral stents in place. Possible UTI? Complicated UTI with ureteral stents, recurrent infections or resistant organisms in the past. Received ceftriaxone, but reviewed prior cultures, noted resistance to ceftriaxone and Citrobacter before, cefepime for now. Follow-up urine culture. Recently with recurrent hydronephrosis with stents in place, assess CT abdomen pelvis. Patient said to have her stents replaced every 3 months or so, will but did have them just replaced in March. Qualifiers: Hematuria presence: with hematuria Urinary tract infection type: site unspecified Qualified Code(s): N39.0 - Urinary tract infection, site not specified; R31.9 - Hematuria, unspecified (3) Hematuria: Additional assessment with renal protocol CT as above. Plan Diabetes: Insulin sliding scale. Monitor POC glucose. HTN: Permissive hypertension for now. Hold antihypertensives. Reassess. Long-term target blood pressure 120/80, discussed with her and her sisters. PDMP PDMP Reviewed: Not Reviewed Attestations Medical Necessity Statement*: Admission of over 2 midnights anticipated for assessment management of acute CVA, complicated UTI and lady with previous history of CVA, cerebral arterial insufficiency, as well as ureteral stents with recurrent hydronephrosis, UTI. Diagnoses CVA (cerebral vascular accident) I63.9 UTI (urinary tract infection) N39.0; R31.9 Hematuria presence: with hematuria Urinary tract infection type: site unspecified Hematuria R31.9
--- NOTE | 2024-05-11 16:09 | CTR_ITS ---
PROCEDURE INFORMATION: Exam: CT Abdomen And Pelvis Without Contrast Exam date and time: 05/11/2024 4:55 PM Age: 69 years old Clinical indication: Abdominal pain; Flank; Other: Bilat; Prior surgery; Surgery date: 1-6 months; Surgery type: Unclear how long but renal stents; Additional info: Uret stents, poss UTI, assess for any signs of recurrent obstruction TECHNIQUE: Imaging protocol: Computed tomography of the abdomen and pelvis without contrast. Radiation optimization: All CT scans at this facility use at least one of these dose optimization techniques: automated exposure control; mA and/or kV adjustment per patient size (includes targeted exams where dose is matched to clinical indication); or iterative reconstruction. COMPARISON: PT PET skull to thigh INIT [id number] 06/11/2023 8:49 AM RADIATION DOSE METRICS: Total DLP (mGy-cm): 1001.87 FINDINGS: Liver: The liver is enlarged measuring up to at least 21.2 cm in length in the craniocaudal dimension. Gallbladder and biliary ducts: The gallbladder is absent. Pancreas: Normal. No ductal dilation. Spleen: The spleen is enlarged measuring 12.9 cm in length. Adrenal glands: Normal. No mass. Kidneys and ureters: Multiple calcified stones in the right kidney measuring up to 14 mm. There is mild hydronephrosis on the right and left. Bilateral double-J ureteral stents in place. Stomach and bowel: Unremarkable. No obstruction. No mucosal thickening. Appendix: No evidence of appendicitis. Intraperitoneal space: Unremarkable. No free air. No significant fluid collection. Vasculature: Unremarkable. No abdominal aortic aneurysm. Lymph nodes: Irregular soft tissue in the central abdominal mesentery (series 4, image 130) possibly reflecting mesenteric lymph nodes with hazy borders as previous described is similar in size, appearance and distribution to the prior abdominal CT dated 04/12/2023. Urinary bladder: Unremarkable as visualized. Reproductive: Unremarkable as visualized. Bones/joints: Unremarkable. No acute fracture. Soft tissues: See Lymph nodes finding. CT/CT kidney stone [id number] IMPRESSION: 1. Multiple calcified stones in the right kidney measuring up to 14 mm. There is mild bilateral hydronephrosis. Bilateral double-J ureteral stents in place. 2. Irregular soft tissue in the central abdominal mesentery (series 4, image 130), possibly reflecting mesenteric lymph nodes with hazy borders as previous described, are similar in size, appearance and distribution to the prior abdominal CT dated 04/12/2023. 3. No bowel obstruction.
--- NOTE | 2024-05-11 16:12 | USCV_ITS ---
Gonsalo Macey Age: 69 Gender: F : 1955 Exam Date: 05/11/2024 19:22 Ordering Phys: Petey Obregon MD Technologist: HUGO Exam Location: [facility] – [place] Indication: cva BP: 165 / 71 HR: Rhythm: Sinus Technical Quality: Adequate MEASUREMENTS (Male / Female) Normal Values FINDINGS Left Ventricle Right Ventricle Right Atrium Left Atrium Mitral Valve Aortic Valve Tricuspid Valve Pulmonic Valve Pericardium Aorta IVC CONCLUSIONS Limited echocardiogram performed for bubble study. LV systolic function is normal with EF of 55-60%. Bubble study is negative with no intracardiac shunting noted. Rohan Mason MD (Electronically Signed) Final Date: 13 May 2024 13:51 S
--- NOTE | 2024-05-11 16:24 | USR_ITS ---
PROCEDURE INFORMATION: Exam: US Duplex Bilateral Extracranial Arteries; Complete; Carotid Arteries Exam date and time: 05/11/2024 5:36 PM Age: 69 years old Clinical indication: Numbness / parasthesia; Right; Additional info: CVA TECHNIQUE: Imaging protocol: Real-time duplex ultrasound scan of the bilateral extracranial arteries combining maier scale, color Doppler and spectral waveform analysis with image documentation. Complete exam. Exam focused on the carotid arteries. COMPARISON: CT angio headneck* [id number] 04/12/2023 7:03 AM FINDINGS: Right common carotid artery: Unremarkable. No occlusion or stenosis. Waveforms are normal. Right internal carotid artery: Unremarkable. No occlusion or stenosis. Waveforms are normal. Right ICA/CCA ratio: Within normal limits. Right external carotid artery: No stenosis in the origin. Right vertebral artery: Unremarkable. Antegrade flow. Left common carotid artery: Diminutive waveforms and Doppler signal of the distal aspect of the left common carotid artery. Significant soft plaque is seen at the distal aspects. Proximal and mid aspects of the common carotid artery appear grossly patent. Left internal carotid artery: Diminutive waveforms and Doppler signal along the entirety of the left internal carotid artery with multiple regions of soft appearing plaque. Left ICA/CCA ratio: Can not be calculated. Left external carotid artery: No stenosis in the origin. Left vertebral artery: Unremarkable. Antegrade flow. US/CV carotid duplex BI* [id number] IMPRESSION: 1. Findings are concerning for significant left internal carotid artery narrowing/stenosis approaching near-total occlusion. Recommend CTA for further assessment. 2. Distal common carotid artery demonstrates significant narrowing/stenosis. Attention on follow-up recommended CTA. REFERENCES: SRU CRITERIA. The degree of internal carotid artery stenosis is based on criteria defined by the Society of Radiologists in Ultrasound (SRU). Normal is no stenosis. Mild is less than 50% stenosis. Moderate is 50-69% stenosis. Severe is greater than 69% stenosis to near occlusion. Near occlusion is a markedly narrowed lumen. Total occlusion is no detectable patent lumen.
[2024-05-11] MEDS: aspirin 81 mg EC Tablet 162 MG PO (16:37)
[2024-05-11] MEDS: cefepime 1,000 mg SDV 1000 MG IVP (16:37)
[2024-05-11 16:44] LABS: Glucose Point of Care 127 mg/dL (70-110)
--- NOTE | 2024-05-11 19:04 | PC.NURSE ---
Patient does not have dentures with her.
[2024-05-11 21:05] LABS: Glucose Point of Care 314 mg/dL (70-110)
[2024-05-11] MEDS: insulin lispro 100 unit/1 mL SUBCUT (21:36)
[2024-05-12] VITALS (10 sets, daily range): BP systolic 120–165; BP diastolic 60–89; PULSE 73–95; RESP 16–19; TEMP 36.4–36.8; O2SAT 94–96
[2024-05-12] MEDS: cefepime 1,000 mg SDV 1000 MG IVP ×2 (03:37→17:14)
--- NOTE | 2024-05-12 05:14 | PC.NURSE ---
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 No change noted in neuro assessment. No drift noted right arm. Pt able to do heel mcmullen on right side. Able to ambulate to the BR without difficulty. VSS. Dr. Grcaia notified.
[2024-05-12 05:18] LABS: Cholesterol 108 mg/dL (0-200); HDL Cholesterol 45 mg/dL (60-100); LDL Cholesterol Calculated 47 mg/dL (50-129); LDL HDL Ratio 1.04 RATIO (0.00-3.22); Triglycerides 81 mg/dL (0-150)
[2024-05-12 05:28] LABS: Estmated Average Glucose 229; Hemoglobin A1C 9.6 % (4.0-6.0)
[2024-05-12 06:22] LABS: Glucose Point of Care 139 mg/dL (70-110)
--- NOTE | 2024-05-12 07:08 | PC.NURSE ---
Pt noted to have a drift to her right arm now. Slight droop noted right side of mouth. 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 Able to perform heel mcmullen on right and left side without difficulty. Dr. Obregon notified of above No new orders received at this time. Will continue to monitor closely.
[2024-05-12] MEDS: aspirin 81 mg EC Tablet 162 MG PO (08:24)
[2024-05-12] MEDS: tamsulosin 0.4 mg Capsule PO (08:24)
--- NOTE | 2024-05-12 08:38 | P.PN_ITS ---
Subjective 2 Subjective: Right arm is feeling slightly weaker. Having worse use of her arm . Mild drift is noted on exam. Vitals/I&O/Wt Last Vital Signs Temp 98.3 F 05/12/24 07:40 Pulse 73 05/12/24 07:40 Resp 19 H 05/12/24 07:40 BP 151/60 05/12/24 07:40 Pulse Ox 94 05/12/24 07:40 O2 Del Method Room Air 05/12/24 07:40 05/11/24 05/12/24 05/12/24 22:59 06:59 14:59 Intake Total 240 / 240 Balance 240 / 240 Weight last 48 hrs Weight 95.98 kg Weight 117.48 kg Weight 117.48 kg Physical Exam 2 Const: COMMON NORMALS: patient oriented x3 and alert GENERAL APPEARANCE: c ooperative ORIENTATION/CONSCIOUSNESS: Yes awake HENMT: COMMON NORMALS: oropharynx normal Neck/C-Spine: COMMON NORMALS: no JVD Resp: COMMON NORMALS: normal respiratory effort and clear to auscultation bilaterally AUSCULTATION: clear to auscultation bilaterally Cardio: COMMON NORMALS: no JVD, regular rhythm, S1 normal heart sound present, S2 normal heart sound present and No murmurs present (Cardio) RHYTHM: regular rhythm HEART SOUNDS: S1 normal heart sound present and S2 normal heart sound present GI: COMMON NORMALS: Normal to inspection, nondistended, normoactive bowel sounds present, Soft to palpation and non-tender PALPATION: Yes Soft to palpation Extremity: COMMON NORMALS: no joint enlargement and no pedal edema Neuro: COMMON NORMALS: patient oriented x3 and moves all extremities S ENSORIUM/ORIENTATION: Yes alert OTHER: She follows directions readily, no difficulty with horizontal tracking. FNF normal, minimally slightly slowed on the right compared to the left. Visual aguilar full to confrontation. No visual extinction. LUE mild drift. Right lower extremity with minimal drift compared to the left. Sensory exam symmetrical, without sensory extinction. Skin: COMMON NORMALS: no rashes or lesions noted GENERAL SKIN EXAM: no rashes or lesions noted Data 05/11/24 08:31 05/11/24 08:31 A&P Assessment and plan (1) CVA (cerebral vascular accident): Some fluctuation of symptoms, some worsening of weakness in right upper extremity overnight, mild drift noted in right upper extremity this morning. She can feel subjectively worse use of her arm . Denies any headache. Reviewed vitals, urine culture, reviewed carotid duplex, echocardiogram is still pending. Gentle hydration, NS 50 mL/h. With possible near total occlusion of left internal carotid artery, as well as significant stenosis of left distal common carotid artery, discussed with her additional assessment with CTA, risk of contrast nephropathy. Gentle hydration started. Discussed with her will benefit from follow-up with neurosurgery for reassessment, consideration of carotid endarterectomy or hospitalization with her neurosurgeon is controlled. Continue aspirin. Monitor for risk of bleeding. Repeat CBC. Additionally noted suboptimally managed diabetes, A1c is 9.6. Will benefit from better blood glucose control. She declined to CTA and further declines it for now on additional discussion with her and her sister of risks and benefits with regards to near-total occlusion of the left carotid artery, consideration of whether she may be candidate for intervention or not in case there is still occlusion, risk of Nephropathy, she declines until we speak with her infectious disease technician, left message with abnormalities practice [phone] Discussed with counseling case manager. Discussed with nursing. She had previously been discontinued off of all antiplatelets, although in the past did have endovascular procedure on her cerebral arterial circulation, although denies stent placement. Reports had PCI at [facility]. Was initially on aspirin and Plavix, Plavix was reportedly stopped due to renal dysfunction. Subsequently aspirin was stopped after diverticular bleed. Currently not on any antiplatelet. Discussed with her and her sisters risk of possible bleeding, trial of aspirin. They are agreeable to try. Start 160 mg, monitor for risk of bleeding. Reassess blood counts. Continue statin. Permissive hypertension current time, long-term will need to target blood pressure 120/80. With multiple prior CVA additional assessment with echo bubble study, monitor on telemetry currently, consider monitor at discharge, assess carotid duplex with prior arterial cerebrovascular insufficiency and currently recurrent CVA. She had just been recovering from COVID and flu at the March, possible trigger for the current CVA. PT, OT, ST assessment. Discussed with her would benefit from follow-up with neurology as well. (2) UTI (urinary tract infection): Reviewed urine culture, pending. Reviewed CT abdomen pelvis, mild bilateral hydronephrosis, noted nephrolithiasis. Without suggestion of obstructive pyelonephritis at current time. Follow-up urine culture. Continue to biotic coverage. She will need follow-up as discussed with her with urology to determine whether the stents will need to be exchanged sooner given suspected infection. Risk of encephalopathy with cefepime. Qualifiers: Hematuria presence: with hematuria Urinary tract infection type: site unspecified Qualified Code(s): N39.0 - Urinary tract infection, site not specified; R31.9 - Hematuria, unspecified (3) Hematuria: Monitor for risk of worsening bleeding with aspirin. Additional assessment with renal protocol CT as above. Plan Diabetes: Insulin sliding scale. Monitor POC glucose. A1c reviewed, 9.6. Discussed with her and her sister, will benefit from better control. HTN: Permissive hypertension for now. Hold antihypertensives. Reassess. Long- term target blood pressure 120/80, discussed with her and her sisters. Discussed with her for cystoscopy, bilateral better control. PDMP PDMP Reviewed: Not Reviewed Attestations 2 Medical Necessity Statement*: Continue assessment management after acute CVA with fluctuating symptoms, history of GI bleeding with aspirin, complicated UTI. Diagnoses CVA (cerebral vascular accident) I63.9 UTI (urinary tract infection) N39.0; R31.9 Hematuria presence: with hematuria Urinary tract infection type: site unspecified Hematuria R31.9
[2024-05-12] MEDS: sodium chloride 0.9% 500 ML 50 ML IV (09:11)
--- NOTE | 2024-05-12 09:35 | PC.CHAP ---
Pastoral Care Encounter/Spiritual Assessment Type of Contact [] Declined unit control clerk visit [] Patient/Family/Request visit [] Outpatient visit [] Follow-up visit [] Physician referral [] Code/Alert [] Routine visit [] Staff referral [] Actively dying [] Patient sleeping [] Family support [] [] Out of room [] Palliative care [] [x] Receiving care in room [] Pre-surgical visit [] Trauma [] Long length of stay [] ICU visit [] Other: Relational/Emotional Strength [] Patient feels connected with others/family/visitors/staff [] Distress [] Loneliness/isolation [] Abandonment Spirituality of Patient [] Person of May [] Attends Mandaeism of their May [] Believes in Prayer [] Reads Bible or Synagogue materials [] There are Spiritual issues to be addressed Messenger Copy Interventions [] Prayer [] Active listening [] Non-anxious presence [] Spiritual/emotional support [] Crisis/trauma care [] Spiritual counseling [] Bereavement support [] Provided bereavement packet [] Provided Bible/devotional materials [] Provided toy/stuffed animal, coloring book to patient or family member [] Provided Communion [] Anointing/[place] [] Salvation [] Completed spiritual assessment [] Other: Impact on Illness or Injury [] Angry [] Fearful [] Anxious [] Often cries [] Exhaustion [] Unable to work [] Unable to attend druze [] Unable to walk/stand [] Unable to read [] Unable to drive [] Unable to eat/drink [] Unable to sleep [] Unable to be with family [] Patient intubated [] Other: Summary Time spent with patient
[2024-05-12 11:14] LABS: Glucose Point of Care 323 mg/dL (70-110)
--- OUTSIDE RECORDS SUMMARY | 2024-05-12 11:19 | XMS_ITS | Clinical Summary ---
Author Organization [facility] Address [address] [place] [address] Phone Care Team Providers Care Tier In Name Role Phone Unavailable Primary Care Provider Unavailabl e Encounters Date Type Department Care Team Description 03/17/2024 Orders Only [facility] [address] [phone] Hardik Eagle MD Gastrointestinal hemorrhage, unspecified gastrointestinal hemorrhage type (Primary Dx) from Last 3 Months Social History Tobacco Use Types Packs/Day Years Used Date Smoking Tobacco: Never Assessed Comments Unknown Sex and Gender Information Value Date Recorded Sex Assigned at Not on file 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 Gender Identity Not on file Sexual Orientation Not on file Plan of Treatment Upcoming Encounters Date Type Department Care Team (Late st Contact Info) Description 06/22/2024 2:40 PM CDT Office Visit [facility] [address] [phone] Tyrone Palafox MD [address] [place] [phone] Health Maintenance Due Date Last Done Comments DIABETES ANNUAL FOOT EXAM 1971 DIABETES ANNUAL RETINAL EXAM 1971 DIABETES HBA1C Q 6 MONTHS 1971 DIABETES MICROALBUMIN ANNUAL SCREEN 1971 LDL CHOLESTEROL ANNUAL 1971 DTAP/TDAP/TD VACCINES (1 - Tdap) 1972 PNEUMOCOCCAL VACCINE 65+ YEARS (1 of 2 - PCV) 05/11/18 73 ZOSTER VACCINE (1 of 2) 1972 BREAST CANCER SCREENING 1993 COLORECTAL SCREENING 1998 Colorectal Cancer Screening 1998 FIT-DNA Q 3 years 1998 FIT/FOBT Q 1 year 1998 Flex Sig/CT Colonography Q 5 years 1998 RSV VACCINE (60+ or ) (1 - Risk 60-74 years 1-dose series) 2013 OSTEOPOROSIS SCREENING 2018 INFLUENZA VACCINE (#1) 2023
--- OUTSIDE RECORDS SUMMARY | 2024-05-12 11:19 | XMS_ITS | Encounter Summary ---
Author Organization [employer] [facility] Address [address] [place] [address] Care Team Providers Care Pattern Grader Name Role Phone Unavailable Primary Care Provider Unavailabl e Encounter Details Date Type Department Care Team (Latest Contact Info) Description 08/26/2000 Outpatient Historical [facility] Scooby Desai NO ADDRESS ON FILE Unspecified disorder of skin and subcutaneous tissue (Primary Dx) Social History Tobacco Use Types Packs/Day Years Used Date Smoking Tobacco: Never Assessed Comments Unknown Sex and Gender Information Value Date Recorded Sex Assigned at Not on file Legal Sex Female 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
--- OUTSIDE RECORDS SUMMARY | 2024-05-12 11:19 | XMS_ITS | Encounter Summary ---
Author Organization [employer] [facility] Address [address] [place] [address] Care Team Providers Care Open Hearth Stockyard Supervisor Name Role Phone Unavailable Primary Care Provider Unavailabl e Encounter Details Date Type Department Care Team (Latest Contact Info) Description 10/02/2000 Outpatient Historical [facility] Chasegrace Scooby H NO ADDRESS ON FILE Type II or unspecified type diabetes mellitus without mention of complication, not stated as uncontrolled (CMS/HCC) (Primary Dx) Social History Tobacco Use Types Packs/Day Years Used Date Smoking Tobacco: Never Assessed Comments Unknown Sex and Gender Information Value Date Recorded Sex Assigned at Not on file Legal Sex Female 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
--- OUTSIDE RECORDS SUMMARY | 2024-05-12 11:19 | XMS_ITS | Encounter Summary ---
Author Organization [employer] [facility] Address [address] [place] [address] Care Team Providers Care Ornamental Metal Worker Apprentice Name Role Phone Unavailable Primary Care Provider Unavailabl e Encounter Details Date Type Department Care Team (Latest Contact Info) Description 07/01/2000 Outpatient Historical [facility] ChaseScooby edwards Akin NO ADDRESS ON FILE Type II or unspecified type diabetes mellitus without mention of complication, not stated as uncontrolled (CMS/HCC) (Primary Dx); Unspecified hypothyroidism Social History Tobacco Use Types Packs/Day Years Used Date Smoking Tobacco: Never Assessed Comments Unknown Sex and Gender Information Value Date Recorded Sex Assigned at Not on file Legal Sex Female 4:00 AM GM MOBILE Gender Identity Not on file Sexual Orientation Not on file documented as of this encounter Plan of Treatment Not on file documented as of this encounter Visit Diagnoses Diagnosis Type II or unspecified type diabetes mellitus without mention of complication, not stated as uncontrolled (CMS/HCC)- Primary Type II or unspecified type diabetes mellitus without mention of complication, not stated as uncontrolled Unspecified hypothyroidism documented in this encounter
--- OUTSIDE RECORDS SUMMARY | 2024-05-12 11:20 | XMS_ITS | Encounter Summary ---
Author Organization [employer] [facility] Address [address] [place] [address] Care Team Providers Care Route Delivery Supervisor Name Role Phone Unavailable Primary Care Provider Unavailabl e Encounter Details Date Type Department Care Team (Latest Contact Info) Description 07/12/1999 Outpatient Historical [facility] Scooby Desia NO ADDRESS ON FILE Other specified menopausal and postmenopausal disorder (Primary Dx); Acute pharyngitis; Family history of diabetes mellitus; Personal history of malignant neoplasm of thyroid Social History Tobacco Use Types Packs/Day Years Used Date Smoking Tobacco: Never Assessed Comments Unknown Sex and Gender Information Value Date Recorded Sex Assigned at Not on file Legal Sex Female 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
--- OUTSIDE RECORDS SUMMARY | 2024-05-12 11:20 | XMS_ITS ---
Author Organization [facility] Address [address] [place] [address] Care Team Providers Care Medical Collections Specialist Name Role Phone Celia Louis Primary Care Provider Alee SIMMONS MAEVE Unavailable [phone] Allergies Allergen (clinical drug ingredient) Drug/Non Drug Allergy documented on EMR Reaction Allergy Type Onset Date Status Ciprofloxacin Unknown Drug Allergy Act daljit Latex Latex Unknown Allergy Active REASON FOR VISIT 3-4 week post op Medications Medication SIG (Take, Route, Frequency, Duration) Notes Start Date End Date Status Atorvastatin Calcium 40 MG 1 tablet Orally Once a day Active Ferrous Gluconate 324 (38 Fe) MG 1 tablet Orally Three times a Week Active Metoprolol Succinate 50 MG 1 capsule Orally Once a day *Reorder from [employer] for eRx and Interaction Alerts* Active Aspirin 81 MG 1 tablet Orally Once a day Active Acidophilus 100 MG as directed Orally Active Tamsulosin HCl 0.4 MG 1 capsule Orally every other day for 90 days 08/06/2024 Active Symbicort Not-Taking Clopidogrel Bisulfate 75 MG 1 tablet Orally Once a day Not-Taking Januvia 100 MG 1 tablet Orally Once a day Not-Taking Lisinopril 10 MG 1 tablet Orally Once a day Active glyBURIDE 2.5 MG 1 tablet with breakfast or the first main meal of the day Orally Once a day Active Levothyroxine Sodium 88 MCG 1 tablet in the morning on an empty stomach Orally Once a day Active Social History Tobacco Use: Social History Observation Description Date Details (start date - stop date) Former Smoker NA - NA Tobacco Use/Smoking Question Answer Notes Tobacco use: former smoker How long has it been since you last smoked? > 10 years Section Notes: tobacco - nopnsmoker Alcohol - None Caffeine - daily coffee Vital Signs Blood pressure systolic 152 mm Hg 01/30/20 24 Blood pressure diastolic 86 mm Hg 024 Heart Rate 80 /min 01/30/2024 Height 63 in 01/30/2024 Weight 231.48 lbs 01/30/2024 BMI 41 kg/m2 01/30/2024 Height-cm 160.02 cm 01/30/2024 Weight-kg 105 kg 01/30/2024 Encounters Encounter Location Date Provider Diagnosis [facility] [place] [address] [place] [address] 01/30/2024 MAEVE SIMMONS Ureteral stent prese nt Z96.0 ; Recurrent UTI N39.0 ; History of urinary retention Z87.898 ; History of hydronephrosis Z87.448 and Chronic kidney disease (CKD), stage IV (severe) N18.4 Assessments Encounter Date Diagnosis (ICD Code) Assessment Notes Treatment Notes Treatment Clinical Notes Section Notes 01/30/2024 Ureteral stent present (ICD-10 - Z96.0) 68-yo female with bilateral ureteral stents last exchanged on 12/26, rUTIs, CKD, atrophic L kidney. Stable at this time and and will continue with chronic stents. She will return in 1m for symptom reassessment with UA/PVR and see Zabrina Finch APRN. Return sooner with any concerns Plan: - RTC in 1m with UA/PVR and see Zabrina Finch APRN -She will need bilateral stent exchange in 2 months IVictoria Scribe, am scribing for, and in the presence of, Dr. Simmons. I, Dr. Maeve Simmons, personally performed the services prescribed in this documentation, as scribed by Victoria Milton, in my presence, and it is both accurate and complete. 01/30/2024 Recurrent UTI (ICD-10 - N39.0) 68-yo female with bilateral ureteral stents last exchanged on 12/26, rUTIs, CKD, atrophic L kidney. Stable at this time and and will continue with chronic stents. She will return in 1m for symptom reassessment with UA/PVR and see Zabrina Finch APRN. Return sooner with any concerns Plan: - RTC in 1m with UA/PVR and see Zabrina Finch CLINICAL PRODUCT SPECIALIST -She will need bilateral stent exchange in 2 months Victoria Latif Scribe am scribing for, and in the presence of, Dr. Simmons. I, Dr. Maeve Simmons, personally performed the services prescribed in this documentation, as scribed by Victoria Milton, in my presence, and it is both accurate and complete. 01/30/2024 History of urinary retention (ICD-10 - Z87.898) 68-yo female with bilateral ureteral stents last exchanged on 12/26, rUTIs, CKD, atrophic L kidney. Stable at this time and and will continue with chronic stents. She will return in 1m for symptom reassessment with UA/PVR and see Zabrina Finch APRN. Return sooner with any concerns Plan: - RTC in 1m with UA/PVR and see Zabrina Finch CLINICAL PRODUCT SPECIALIST -She will need bilateral stent exchange in 2 months Victoria Latif Scribe am scribing for, and in the presence of, Dr. Simmons. I, Dr. Maeve Simmons, personally performed the services prescribed in this documentation, as scribed by Victoria Milton, in my presence, and it is both accurate and complete. 01/30/2024 History of hydronephrosis (ICD-10 - Z87.448) 68-yo female with bilateral ureteral stents last exchanged on 12/26, rUTIs, CKD, atrophic L kidney. Stable at this time and and will continue with chronic stents. She will return in 1m for symptom reassessment with UA/PVR and see Zabrina Finch APRN. Return sooner with any concerns Plan: - RTC in 1m with UA/PVR and see Zabrina Finch CLINICAL PRODUCT SPECIALIST -She will need bilateral stent exchange in 2 months Victoria Latif Scribe am scribing for, and in the presence of, Dr. Simmons. Bhavya, Dr. Maeve Simmons, personally performed the services prescribed in this documentation, as scribed by Victoria Milton, in my presence, and it is both accurate and complete. 01/30/2024 Chronic kidney disease (CKD), stage IV (severe) (ICD-10 - N18.4) 68-yo female with bilateral ureteral stents last exchanged on 12/26, rUTIs, CKD, atrophic L kidney. Stable at this time and and will continue with chronic stents. She will return in 1m for symptom reassessment with UA/PVR and see Zabrina Finch APRN. Return sooner with any concerns Plan: - RTC in 1m with UA/PVR and see Zabrina Finch APRN -She will need bilateral stent exchange in 2 months IVictoria Scribe, am scribing for, and in the presence of, Dr. Simmons. I, Dr. Maeve Simmons, personally performed the services prescribed in this documentation, as scribed by Victoria Milton, in my presence, and it is both accurate and complete. Plan Of Treatment Next Appt Details Follow Up: 4 Weeks, Reason: Provider Name:MAEVE Emery, 07/02/2024 11:00:00 AM, [address] [place], [address], Progress Notes * Macey BRUSH KDOB: (68 yo F)Acc No.[id number]:01/30/2024 Patient:?Macey BRUSH Provider:?MAEVE SIMMONS MD :1955???Age:68 Y???Sex:Female D ate:01/30/2024 Address:[address] [place], [place] [phone] Pcp:Celia Louis Subjective: * Chief Complaints: * ???1. 3-4 week post op. * HPI: ???Migrated HPI:? Ms. Brush is a 68yo female with a complex urological medical history. She has been on Flomax due to h/o urinary retention, but is now voiding frequently. She has a h/o sepsis from February of 2022, and was treated at [facility]. She has sleep apnea and uses CPAP. PMH includes non-Hodgkin's lymphoma, Type 2 diabetes, and HTN. She has a h/o endometrial cancer, s/p complete hysterectomy with BSO in Feb. Bone scan 07/24/[address] Chest A/P in Feb 2022 showed bilateral hydronephrosis and mass-like area in bladder. She was referred to Dr. Gold for oncology. Cysto on 05/10/22, showed multple erythematous areas and cloudy debris-filled urine. She underwent bladder bx and L ureteral stent placement on 06/05/22. Path was negative. Cytology from L ureter was negative. She underwent L URS and stent exchange on 07/13/22. YASMEEN on 08/07/22, revealed mild L hydronephrosis. Previous Lasix Renogram on 10/17/22, revealed the R kidney contributes 78.7% of total function and L kidney 21.3%. Time of maximum function on L is 0.3 minutes and on R is 5.0 minutes. T half max on the L 0.45 minutes and T half max on R 17.5 minutes. There is a flat function curve excretion L. There is a normal function and excretion curve on R. She presented to [facility] on 07/09/23, c/o L flank pain, hematuria, chills, and N/V. CT revealed hydroureteronephrosis with severe L perinephric stranding. She was admitted for stef hydronephrosis and cystitis and underwent cystoscopy with bilateral stent placement and bladder bx and fulguration on 07/10/23. Pathology revealed acutely inflamed urothelium-lined mucosa with extensive squamous metaplasia and submucosal hemorrhage, fragments of benign thrombus, negative for malignancy/dysplasia. She presented to [facility] on?10/05/[address] Temple labor relations or personnel negotiator exchanged ureteral stents bilaterally. She was positive for proteus urine culture and sent home on appropriate antibiotics. UA is abnormal today. She was recently hospitalized and Dr. Temple exchanged her stents on 11/02.?Pt c/o bladder pressure. Occasional mild R flank pain. PVR 0. YASMEEN shows no hydro and left renal atrophy. Underwent Bilateral URS removal and replacement on 12/27/23. Here today 4 weeks post op. Pt is seeing Dr Monge for rUTShaheed. * ROS:?General / Constitutional Patient denies chills, fever, change in appetite. Gastrointestinal Patient denies abdominal pain, nausea, vomiting, diarrhea. Genitourinary Comments See HPI for details. * Medical History:?Bladder can cer, Thyroid dx, Diabetes, Hyperlipidemia, Hypertension, Arthritis, Urosepsis, Anemia, Urinary incontinence, Hx pyelonephritis, Hx gross heamturia, Incomplete bladder emptying. * Surgical History:?hysterecto my, total with bilateral salpingo-oophorectomy (BSO) , cholecystectomy , bladder bx 06/05/22, port inserted and removed 2011, angioplasty 04/2023, Cysto/Bladder bx/fulguration of bleeders/stents 07/10/2023, Stent placement 11/03/2023, stent exchange 12/2023. * Hospitalization/Major Diagno stic Procedure:?see sx hx , [facility] UTI inspired sepsis 02/2022, [facility] 2022, Bladder bx/stents/fulguration 06/24/23, cdiff, uti 11/02, 10 day stay after Stent placement/infection, and rectal bleeding. 12/2023. * Family History:?Father: dece ased 91 yrs, heart disease.?Siblings: 50 yrs, post surgical r/t gallbladder.?Mother: 77 yrs, DM, HTN, Cancer.? * Social History:?Tobacco Use:?Tobacco Use/Smoking?Tobacco use:?former smoker,?How long has it been since you last smoked??> 10 years.?tobacco - nopnsmoker Alcohol - None Caffeine - daily coffee. * Medications:?Taking Acidophi chantale 100 MG Capsule as directed Orally , Taking Atorvastatin Calcium 40 MG Tablet 1 tablet Orally Once a day , Taking Ferrous Gluconate 324 (38 Fe) MG Tablet 1 tablet Orally Three times a Week , Taking Metoprolol Succinate 50 MG Capsule ER 24 Hour Sprinkle 1 capsule Orally Once a day , Notes to Pharmacist: *Reorder from [employer] for eRx and Interaction Alerts*, Taking Aspirin 81 MG Tablet Delayed Release 1 tablet Orally Once a day , Taking glyBURIDE 2.5 MG Tablet 1 tablet with breakfast or the first main meal of the day Orally Once a day , Taking Levothyroxine Sodium 88 MCG Tablet 1 tablet in the morning on an empty stomach Orally Once a day , Taking Lisinopril 10 MG Tablet 1 tablet Orally Once a day , Taking Tamsulosin HCl 0.4 MG Capsule 1 capsule Orally every other day , stop date 08/06/2024, Not-Taking Symbicort , Not-Taking Clopidogrel Bisulfate 75 MG Tablet 1 tablet Orally Once a day , Not-Taking Januvia 100 MG Tablet 1 tablet Orally Once a day , Medication List reviewed and reconciled with the patient * Allergies:?Latex: Allergy, C iprofloxacin: Allergy. Objective: * Vitals:?BP:152/86mm Hg, HR:8 0/min, Wt:231.48lbs, Wt-k kg, Ht: 63 in, Ht- cm: 160.02 cm, BMI:41Index, Body Surface Area: 2.16. * Examination: ???General Examination: ?General appearance:?alert, pleasant, well-nourished and in no acute distress.?Chest:?resp even and nonlabored.?Abdomen:?soft, NT, ND.?Female genitourinary:?No CVAT, No SPT, genital exam deferred.? Assessment: * Assessment: 1.?Recurrent UTI - N39.0 (Pr imary)???2.?Ureteral stent present - Z96.0???3.?History of urinary retention - Z87.898???4.?History of hydronephrosis - Z87.448???5.?Chronic kidney disease (CKD), stage IV (severe) - N18.4??? 68-yo female with bilateral ureteral stents last exchanged on 12/26, rUTIs, CKD, atrophic L kidney.? Stable at this time and and will continue with chronic stents. She will return in 1m for symptom reassessment with UA/PVR? and see Zabrina Finch, NICOLE. Return sooner with any concerns Plan: - RTC in 1m with UA/PVR and see Zabrina Finch APRN -She will need bilateral stent exchange in 2 months Victoria Latif Scribe, am scribing for, and in the presence of, Dr. Simmons. I, Dr. Maeve Simmons, personally performed the services prescribed in this documentation, as scribed by Victoria Milton, in my presence, and it is both accurate and complete. Plan: * Treatment: * Procedure Codes:?G2211 Compl ex e/m visit add on * Follow Up:?4 Weeks * Billing Information: * Visit Code:? 01321 Office Visit, Est Pt., Level 4. * Procedure Codes:? G2211 Complex e/m visit add on. * NICAL STAFF ENGINEER Sign off status: Completed true * Provider:?MAEVE SIMMONS MD Date:?09/2023 Generated for Tikai mary/Sven/eTransmitting on:?05/12/2024 11:20 AM TECHNICAL STAFF ENGINEER History and Physical Notes * Examination Category Sub-Category Detail Notes Category Not es General Examination General appearance: alert, p leasant, well-nourished and in no acute distress Chest: resp even and nonlab ored Abdomen: soft, NT, ND Female genitourinary: No CVAT, No SPT, g enital exam deferred
--- OUTSIDE RECORDS SUMMARY | 2024-05-12 11:20 | XMS_ITS ---
Author Organization Unknown TREATMENT PLAN [facility] Start Date Provider Encounter for Check-up [id number] Prem cade [facility]
--- OUTSIDE RECORDS SUMMARY | 2024-05-12 11:20 | XMS_ITS | Encounter Summary ---
Author Organization [facility] Address [address] [place] [address] Care Team Providers Care Caterer'S Aide Name Role Phone Unavailable Primary Care Provider Unavailabl e Encounter Details Date Type Department Care Team (Latest Contact Info) Description 04/12/2000 Outpatient Historical [facility] Chasegrace Scooby H NO ADDRESS ON FILE Type II or unspecified type diabetes mellitus without mention of complication, not stated as uncontrolled (CMS/HCC) (Primary Dx); Elevated blood pressure reading without diagnosis of hypertension Social History Tobacco Use Types Packs/Day Years Used Date Smoking Tobacco: Never Assessed Comments Unknown Sex and Gender Information Value Date Recorded Sex Assigned at Not on file 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
--- OUTSIDE RECORDS SUMMARY | 2024-05-12 11:20 | XMS_ITS | Encounter Summary ---
Author Organization [employer] [facility] Address [address] [place] [address] Care Team Providers Care Laceworker Name Role Phone Unavailable Primary Care Provider Unavailabl e Encounter Details Date Type Department Care Team (Latest Contact Info) Description 01/12/2000 Outpatient Historical [facility] Scooby Desai NO ADDRESS ON FILE Type II or unspecified type diabetes mellitus without mention of complication, not stated as uncontrolled (CMS/HCC) (Primary Dx); Lumbago Social History Tobacco Use Types Packs/Day Years Used Date Smoking Tobacco: Never Assessed Comments Unknown Sex and Gender Information Value Date Recorded Sex Assigned at Not on file Legal Sex Female 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
--- OUTSIDE RECORDS SUMMARY | 2024-05-12 11:20 | XMS_ITS | Data Portability ---
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 [email or web address] Not available 01/28/2024 14:05:54 04/09/2024 04/09/2024 For now they do not want to change the specialists from [place]. Because she has a óscar for copays at [place]. This is good through the year. Not available 04/14/2024 18:25:16 Plan of Treatment Reminders Order Date Submit Date Provider Last Modified By Organization Details Last Modified Time Details Appointments None recorded. Lab PTH (parathyroi d hormone), intact, serum or plasma - ALL LABS EXCEPT A1C ORDERED BY [facility]/ WILL FAX YF 2024 025 [employer] [facility], [address] [place] [address] 248, [address] [place], [address], 01:39:08 BMP, serum or plasma 2024 025 JATIN [facility], [address], [facility], [place], [address], 16:25:48 CBC 2024 025 JATIN [facility], [address], [address], [place], [address], 5 15:51:05 vitamin D, 25-hydroxy, total, serum 2024 025 [email or web address] [facility], [address] [place] [address], [address], [place], [address], 5 01:39:09 phosphorus, serum or plasma 2024 025 [email or web address] [employer] [facility], [address] [place] [address], [address], [place], [address], 5 01:39:04 hemoglobin A1C/hemoglo bin total, QN, blood 2024 025 [email or web address] 40 [facility], [address], [facility] 1, [place], [address], 5 08:55:45 ferritin, serum or plasma 2024 025 [email or web address] [facility], [address] [place] [place] [address], [address], [place], [address], 5 01:39:07 iron + total iron-bindin g capacity (TIBC), serum 2024 025 [email or web address] [facility], [address] [place] [address], [address], [place], [address], 5 01:39:06 CBC w/ auto diff 2023 024 [email or web address] [facility], [address], [facility], [place], [address], 4 09:59:42 Referral wound care referral 2023 024 [email or web address] 2 [facility], [address] [place], [address], 4 10:50:35 gastroenter ologist referral 2023 024 [email or web address] 2 [facility] , [address] [facility], [place], [address], 13:57:10 Procedures None recorded. Surgeries None recorded. Imaging None recorded. Medication Orders dexamethaso ne 6 mg tablet 2024 025 [facility], [address], [place], [address], 11:37:13 Patient TargetsNo targets recorded. Patient Instructions Encounter Date Encounter Id Patient Instructions Last Modified By Organization Details Last Modified Time 04/09/2024 [id number] There has been a lot to go over and discussed today. The patient has been instructed to return in 1 week so we can readdress any acute issues. 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 Referring Physician: Hardik Eagle, Family Medicine, Encounter Date: 01/28/2024 Referring Physician: Hardik edmonds, Family Medicine, Encounter Date: 01/28/2024 Results Created Date Observation Date Name Description Value Unit Range Abnormal Flag Note LastModifiedBy Organization Detail LastModifiedTime 01/28/2001/28/2024 CBC WBC 7.7 x10 4.0-10 .5 Not Available [facility] [address] [facility] [address], [place], [address], 01/28/2024 15:04:06 01/28/2001/28/2024 CBC RBC 3.35 x10 3.50-5 .50 low Not Available [facility] [address] [facility] [address], [place], [address], 01/28/2024 15:04:06 01/28/2001/28/2024 CBC HGB 9.9 g/dL 12.0-1 6.0 low Not Available [facility] [address] [facility], [place], [address], 01/28/2024 15:04:06 01/28/20 24 01/28/2024 CBC HCT 30.0 % 37.0-4 7.0 low Not Available [facility] [address] [facility] 1, [place], [address], 01/28/2024 15:04:06 01/28/20 24 01/28/2024 CBC MCV 89.6 fL 80.0-9 9.9 Not Available [facility] [address] [facility] 1, [place], [address], 01/28/2024 15:04:06 01/28/20 24 01/28/2024 CBC MCH 29.6 pg 27.0-3 2.0 Not Available [facility] [address] [facility] 1, [place], [address], 01/28/2024 15:04:06 01/28/20 24 01/28/2024 CBC MCHC 33.1 g/dL 32.0-3 6.0 Not Available [facility] [address] [facility], [place], [address], 01/28/2024 15:04:06 01/28/20 24 01/28/2024 CBC RDW 15.4 % 11.5-1 4.5 high Not Available [facility] [address] [facility], [place], [address], 01/28/2024 15:04:06 01/28/20 24 01/28/2024 CBC plt 179.6 x10 140.0- 451.0 Not Available [facility] [address] [facility] 1, [place], [address], 01/28/2024 15:04:06 01/28/20 24 01/28/2024 CBC lymphocytes % 40.4 % 20.0-5 0.0 Not Available [facility] [address] [facility] [address], [place], [address], 01/28/2024 15:04:06 01/28/20 24 01/28/2024 CBC granulcytes % 33.4 % 30.0-7 0.0 Not Available [facility] [address] [facility] 1, [place], [address], 01/28/2024 15:04:06 01/28/20 24 01/28/2024 CBC monocytes % 22.1 % 2.0-16 .0 high Not Available [facility] [address] [address], [place], [address], 01/28/2024 15:04:06 01/28/20 24 01/28/2024 CBC granulcytes# 2.6 x10 Not Beatriz ilable [place] [address] [facility] 1, [place], [address], 01/28/2024 15:04:06 01/28/20 24 01/28/2024 CBC lymphocytes # 3.1 x10 Not Available [facility] [address] [facility] [address], [place], [address], 01/28/2024 15:04:06 01/28/20 24 01/28/2024 CBC monocytes # 1.7 x10 Not Avai lable [facility] [address] [address], [place], [address], 01/28/2024 15:04:06 04/15/19 25 04/15/2024 CBC WBC 7.5 x10 4.0-10 .5 Not Available [facility] [address] [address], [place], [address], 04/15/2024 15:51:05 04/15/19 25 04/15/2024 CBC RBC 3.16 x10 3.50-5 .50 low Not Available [facility] [address] [facility] 1, [place], [address], 04/15/2024 15:51:05 04/15/19 25 04/15/2024 CBC HGB 9.5 g/dL 12.0-1 6.0 low Not Available [facility] [address] [facility] 1, [place], [address], 04/15/2024 15:51:05 04/15/19 25 04/15/2024 CBC HCT 28.0 % 37.0-4 7.0 low Not Available [facility] [address] [facility], [place], [address], 04/15/2024 15:51:05 04/15/19 25 04/15/2024 CBC MCV 88.7 fL 80.0-9 9.9 Not Available [facility] [address] [facility], [place], [address], 04/15/2024 15:51:05 04/15/19 25 04/15/2024 CBC MCH 30.2 pg 27.0-3 2.0 Not Available [facility] [address] [facility], [place], [address], 04/15/2024 15:51:05 04/15/19 25 04/15/2024 CBC MCHC 34.0 g/dL 32.0-3 6.0 Not Available [facility] [address] [facility], [place], [address], 04/15/2024 15:51:05 04/15/19 25 04/15/2024 CBC RDW 15.0 % 11.5-1 4.5 high Not Available [facility] [address] [facility] 1, [place], [address], 04/15/2024 15:51:05 04/15/19 25 04/15/2024 CBC plt 114.3 x10 140.0- 451.0 low Not Available [facility] [address] [address], [place], [address], 04/15/2024 15:51:05 04/15/19 25 04/15/2024 CBC lymphocytes % 35.0 % 20.0-5 0.0 Not Available [facility] [address] [address], [place], [address], 04/15/2024 15:51:05 04/15/19 25 04/15/2024 CBC granulcytes % 41.9 % 30.0-7 0.0 Not Available [facility] [address] [address], [place], [address], 04/15/2024 15:51:05 04/15/19 25 04/15/2024 CBC monocytes % 21.6 % 2.0-16 .0 high Not Available [facility] [address] [address], [place], [address], 04/15/2024 15:51:05 04/15/19 25 04/15/2024 CBC granulcytes# 3.2 x10 Not Beatriz ilable [facility] [address] [address], [place], [address], 04/15/2024 15:51:05 04/15/19 25 04/15/2024 CBC lymphocytes # 2.6 x10 Not Available [facility] [address] [address], [place], [address], 04/15/2024 15:51:05 04/15/19 25 04/15/2024 CBC monocytes # 1.6 x10 Not Avai lable [facility] [address] [facility], [place], [address], 04/15/2024 15:51:05 04/15/19 25 04/15/2024 BMP (FEMA LE) glucose 190.0 mg/dL 60.0-9 9.0 high Not Available [facility] [address] [facility] 1, [place], [address], 04/15/2024 16:25:48 04/15/19 25 04/15/2024 BMP (FEMA LE) BUN (blood urea nitrogen) 21.0 mg/dL 10.0-2 6.0 Not Available [facility] [address] [facility], [place], [address], 04/15/2024 16:25:48 04/15/19 25 04/15/2024 BMP (FEMA LE) creatinine (serum) 1.5 mg/dL 0.4-1. 5 Not Available [facility] [address] [facility], [place], [address], 04/15/2024 16:25:48 04/15/19 25 04/15/2024 BMP (FEMA LE) BUN/creatini ne ratio 14.00 ratio Not Available [facility] [address] [facility] 1, [place], [address], 04/15/2024 16:25:48 04/15/19 25 04/15/2024 BMP (FEMA LE) calcium 8.4 mg/dL 8.4-10 .5 Not Available [facility] [address] [address], [place], [address], 04/15/2024 16:25:48 04/15/19 25 04/15/2024 BMP (FEMA LE) sodium 141.0 mmol/ L 136.0- 145.0 Not Available [facility] [address] [address], [place], [address], 04/15/2024 16:25:48 04/15/19 25 04/15/2024 BMP (FEMA LE) potassium 4.0 mmol/ L 3.5-5. 1 Not Available [facility] [address] [facility] 1, [place], [address], 04/15/2024 16:25:48 04/15/19 25 04/15/2024 BMP (FEMA LE) chloride 111.0 mmol/ L 98.0-1 10.0 abnormal Not Available [facility] [address] [facility] 1, [place], [address], 04/15/2024 16:25:48 04/15/19 25 04/15/2024 BMP (FEMA LE) C02 27.0 mmol/ L 22.0-3 1.0 Not Available [facility] [address] [facility] 1, [place], [address], 04/15/2024 16:25:48 04/15/19 25 04/15/2024 BMP (FEMA LE) anion gap 3.0 calc Not Available [facility] [address] [facility] 1, [place], [address], 04/15/2024 16:25:48 04/15/19 25 04/17/2024 PHOSP HATE ( PHOSP HORUS ) phosphate ( phosphorus) 3.7 mg/dL 2.1-4. 3 normal Not Available [employer] [facility] [address] [place], [address], 04/17/2024 01:39:04 04/15/19 25 04/17/2024 IRON AND TOTAL IRON ZAINAB NG CAPAC ITY iron, total 62 mcg/d L 45-160 normal Not Available [employer] [facility] [address] [place], [address], 04/17/2024 01:39:06 04/15/1904/17/2024 IRON AND TOTAL IRON ZAINAB NG CAPAC ITY iron binding capacity 220 mcg/d L_(ca lc) 250-45 0 low Not Available [address], [address], 04/17/2024 01:39:06 04/15/1904/17/2024 IRON AND TOTAL IRON ZAINAB NG CAPAC ITY % saturation 28 %_(ca lc) 16-45 normal Not Available [address], [address], 04/17/2024 01:39:06 04/15/1904/17/2024 MARSHA TIN ferritin 200 NG/mL 16-288 normal Not Available [address], [address], 04/17/2024 01:39:07 04/15/1904/17/2024 PTH, INTAC T WITHO UT CALCI UM parathyroid hormone, intact 158 pg/mL 16-77 high Inter preti ve Guide Intac t PTH Calci um ----- ----- ----- --- ----- ----- ----- -- Tanisha l Parat hyroi d Tanisha l Tanisha l Hypop anabel yroid ism Low or Low Tanisha l Low Hyper parat hyroi dism Prima ry Tanisha l or High High Secon sridhar High Tanisha l or Low Terti reinier High High Non-P anabel yroid Hyper calce rosa Low or Low Tanisha l High Not Available [address], [address], 04/17/2024 01:39:08 04/15/1904/17/2024 VITAM IN D,25- OH,TO MERVIN,I A vitamin D,25-oh,tota l,ia 11 NG/mL 30-100 low Vitam in D Statu s 25-OH Vitam in D: Defic iency : <20 ng/mL Insuf ficie ncy: 20 - 29 ng/mL Optim al: > or = 30 ng/mL For 25-OH Vitam in D testi ng on patie nts on D2-osei pplem entat ion and patie nts for whom quant itati on of D2 and D3 fract ions is requi red, the [employer] Assur eD(TM ) 25-OH VIT D, (D2,D 3), LC/MS /MS is recom stevie d: order code 27301 (cheri ents >2yrs ). See Note 1 Note 1 For addit ional infor karla baez refer to http: //[facility].Jeronimo stDia gnost ics.c om/fa q/FAQ 199 (This link is being provi ded for infor kayla anderson/ educliam arellano purpo ses only. ) Not Available [facility] [employer] [address] [address] [address], [place], [address], 04/17/2024 01:39:09 03/31/19 25 03/30/2024 admit to hospi ce* No observ ation record ed. [email or web address] [address] [place], [address], 03/31/2024 13:12:32 Result Notes None recorded. Problems Name Problem SNOMED Code Status Onset Date Resolution Date Notes Provider Name and Address Organization Details Recorded Time Benign essentia l hyperten reed 7722016 Active [address] 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.L.CJaelyn 4 15:16:34 Type 2 diabetes mellitus without complica tion 294116350 Active [address] [facility] L.L.CJaelyn 4 09:25:23 Malignan t lymphoma 545320532 Completed 202212/13/2022 JOANNA GENTILEH CÁRDENAS [facility], [facility], NallelyL.CJaelyn 3 15:15:13 Sleep apnea 15417399 Active 2023 JOANNA CÁRDENAS [facility], [facility], LJaelynL.CJaelyn 4 15:31:49 Anemia 101377184 Active 2023 JOANNA CÁRDENAS [facility], [facility]. 4 10:49:28 History of cerebrov ascular accident 439633212 Active [address] [facility] 4 15:16:29 History of malignan t lymphoma 785239696 Active [address] [facility] 4 15:17:01 History of sepsis 60193060425 9100 Active 2023 [email or web address] 2021 again in 11/03/[address] [facility] 4 11:01:34 Atrophy of left kidney 896617986 Active [address] [facility], Rachel.L.CJaelyn 4 15:27:13 Recurren t urinary tract infectio n 460158703 Active [address] [facility] 4 15:27:23 Bilatera l hydronep hrosis 34174560 Active [address] [facility] 4 15:32:14 Chronic kidney disease 179625663 Active [address] [facility] 4 11:02:21 Acute pyelonep hritis 43509454 Active Dischear ged on 11/07/[address] [facility] 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 4 11:04:53 Chronic kidney disease stage 3 566674979 Active [address] [facility] 4 13:26:22 Type 2 diabetes mellitus 54122888 Active [address] [facility] 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 4 14:07:27 Hypothyr oidism 95522519 Active [address] [facility] 4 15:16:49 Hypercho lesterol emia 31777515 Active [address] [facility] 4 15:16:32 Problem Notes None recorded. Procedures Surgical History Date Name Laterality Status Provider Name and Address Organization Details Recorded Time 03/28/19 25 replacement of stent completed JOANNA CÁRDENAS [facility] 04/09/2024 11:30:10 11/04/19 24 insertion of stent into ureter completed JUDIE FISHER [facility] 11/14/2023 11:01:07 05/21/19 24 Angioplasty completed Celia Rodriguez MD [address] [place] [address], [address], [facility], Mark 10/01/2023 15:09:57 07/14/19 23 insertion of stent into ureter completed [facility], Mark 10/01/2023 15:26:11 06/06/19 23 insertion of stent into ureter completed [facility], Mark 10/01/2023 15:25:38 04/25/19 23 Pet image ltd area completed [facility], Mark 12/13/2022 15:15:41 09/01/19 22 colonoscopy completed [facility], Mark 12/20/2022 09:01:14 08/23/19 22 mammography completed [facility], Mark 12/20/2022 09:00:55 07/27/19 22 bone density scan completed [facility], Mark 11/19/2023 08:51:59 05/09/19 22 ophthalmic examination and evaluation completed [facility], Mark 12/20/2022 09:01:44 procedure on kidney completed [facility], Mark 10/17/2023 10:40:26 replacement of stent completed [facility], Mark 04/09/2024 11:29:35 Hysterectomy completed [facility], Mark 12/13/2022 15:14:37 Cholecystectomy completed [facility], Mark 12/13/2022 15:15:59 Episiotomy or vaginal repair completed [facility], Mark 12/13/2022 15:16:50 Imaging Results Imaging Date Name Status LastModified by Hammad grover Details LastModified Time 03/30/2024 admit to hospice* completed [email or web address] [address] [place], [place], [address], 03/31/2024 13:12:32 Procedure Notes None recorded. Medical Equipment None Reported. Allergies Allergen ID Allergen Name Allergen Category Reaction Reaction Severity Criticality Documentation Date Start Date Code Code System Note Provider Name and Address Organization Details Recorded Time 2446 Cipro medicatio n rash mild low 07/24/2022 18769 3 RxNorm Sujatha Pliler null, [facility] 4 09:19:10 2447 latex environme nt,medica tion rash mild low 07/24/2022 06675 91 RxNorm Sujatha Pliler [facility] 4 09:19:19 05596 Tegaderm medicatio n rash mild low 11/19/2023 85661 UNK Sujatha Plnina [facility], [facility] 4 09:19:28 Medications Name Sig Start Date Stop Date Status Note LastModified by Organization Details LastModified Time nifedipin e ER 30 mg tablet,ex tended release 24 hr 04/09 completed Not Available Not Available Not Available amoxicill in 500 mg capsule TAKE 1 CAPSULE BY MOUTH EVERY 8 HOURS FOR 7 DAYS 08/07 completed Not Available Not Available Not Available fluconazo le 100 mg tablet 01/27 completed Not Available Not Available Not Available atorvasta tin 40 mg tablet Take 1 tablet every day by oral route for 90 days. 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; Recorded 04/10/19 23 9:56AM by Keyana Roper, Office Visit; Refill Quantity : 0; Not Available Not Available Not Available prednison e 10 mg tablet TAKE TWO TABLETS BY MOUTH ONCE DAILY FOR 3 DAYS, THEN 1 TAB ONCE DAILY FOR 5 DAYS 07/03 completed Not Available Not Available Not Available doxycycli ne hyclate 100 mg capsule TAKE 1 CAPSULE BY MOUTH TWICE DAILY FOR 7 DAYS 01/27 completed Not Available Not Available Not Available Normal Saline Flush 0.9 % injection syringe 01/27 completed Not Available Not Available Not Available cefpodoxi me 200 mg tablet 08/07 completed Not Available Not Available Not Available glyburide 2.5 mg tablet Take 1 tablet every day by oral route. 2024 active Not Available Not Available Not Avai lable metoprolo l succinate ER 50 mg tablet,ex tended release 24 hr TAKE 1 TABLET EVERY DAY active Not Available Not Available No t Available hydrocodo ne 5 mg-acetam inophen 325 mg tablet 01/27 completed Not Available Not Available Not Available fluconazo le 200 mg tablet TAKE 1 TABLET BY MOUTH ONCE DAILY FOR 7 DAYS 12/13 completed Not Available Not Available Not Available lisinopri l 20 mg tablet Take 1 tablet every day by oral route. active Not Available Not Available No t Available dexametha sone 6 mg tablet TAKE 1 TABLET BY MOUTH ONCE DAILY IN THE MORNING FOR 5 DAYS active Not Available Not Available No t Available simvastat in 10 mg tablet 07/03 completed Not Available Not Available Not Available midodrine 5 mg tablet 01/27 completed Not Available Not Available Not Available diphenoxy late-atro pine 2.5 mg-0.025 mg tablet Take 2 tablets 4 times a day by oral route for 14 days. 02/20 completed Not Available Not Available Not Available nifedipin e ER 30 mg tablet,ex tended release 01/27 completed Not Available Not Available Not Available clopidogr el 75 mg tablet 10/16 completed Not Available Not Available Not Available amlodipin e 5 mg tablet TAKE 2 TABLETS BY MOUTH ONCE DAILY 12/13 completed Not Available Not Available Not Available ciproflox acin 500 mg tablet TAKE 1 TABLET BY MOUTH EVERY 12 HOURS FOR 5 DAYS 07/24 completed Not Available Not Available Not Available sulfameth oxazole 800 mg-trimet hoprim 160 mg tablet TAKE 1 TABLET BY MOUTH TWICE DAILY FOR 7 DAYS 07/24 completed Not Available Not Available Not Available aspirin 81 mg tablet,de layed release 01/27 completed Not Available Not Available Not Available tramadol 50 mg tablet TAKE 2 TABLETS BY MOUTH EVERY 6 HOURS NEEDED FOR PAIN 12/13 completed Not Available Not Available Not Available acetamino phen 500 mg tablet active Not Available Not Available No t Available vancomyci n 125 mg capsule TAKE 1 CAPSULE BY MOUTH EVERY 6 HOURS FOR 9 DAYS active Not Available Not Available No t Available levothyro xine 88 mcg tablet TAKE 1 TABLET EVERY DAY 2024 active Not Available Not Available Not Avai lable ceftriaxo ne 1 gram solution for injection 01/27 completed Not Available Not Available Not Available magnesium oxide 400 mg (241.3 mg magnesium ) tablet 04/09 completed Not Available Not Available Not Available tamsulosi n 0.4 mg capsule Take 1 capsule as needed by oral route. active Not Available Not Available No t Available OneTouch Ultra Test strips 08/06 completed Not Available Not Available Not Available doxycycli ne monohydra te 100 mg capsule TAKE 1 CAPSULE BY MOUTH TWICE DAILY FOR 7 DAYS 09/30 completed Not Available Not Available Not Available cephalexi n 500 mg capsule TAKE 1 CAPSULE BY MOUTH THREE TIMES DAILY FOR 7 DAYS 10/16 completed Not Available Not Available Not Available oseltamiv ir 75 mg capsule TAKE 1 CAPSULE BY MOUTH TWICE DAILY FOR 4 DAYS active Not Available Not Available No t Available fluconazo le 50 mg tablet 01/27 completed Not Available Not Available Not Available nystatin 100,000 unit/gram topical cream active Not Available Not Available Not Available lisinopri l 10 mg tablet TAKE 1 TABLET EVERY DAY 04/09 completed Not Available Not Available Not Available indometha hilton 25 mg capsule TAKE 1 CAPSULE BY MOUTH TWICE DAILY 07/24 completed Not Available Not Available Not Available indometha hilton 50 mg capsule Take 1 capsule twice a day by oral route for 5 days. 12/25 completed Not Available Not Available Not Available sodium chloride 0.9 % intraveno us solution 01/27 completed Not Available Not Available Not Available metoprolo l succinate ER 25 mg tablet,ex tended release 24 hr 01/27 completed Not Available Not Available Not Available ergocalci ferol (vitamin D2) 1,250 mcg (50,000 unit) capsule TAKE 1 CAPSULE BY MOUTH ONCE A WEEK active Not Available Not Available No t Available cefuroxim e axetil 500 mg tablet TAKE 1 TABLET BY MOUTH EVERY 12 HOURS FOR 3 DAYS 07/24 completed Not Available Not Available Not Available albuterol sulfate HFA 90 mcg/actua tion aerosol inhaler INHALE 2 PUFFS BY MOUTH EVERY 4 HOURS active Not Available Not Available No t Available colchicin e 0.6 mg tablet 06/29 completed Not Available Not Available Not Available ondansetr on 4 mg disintegr ating tablet Place 1 tablet 3 times a day by translin gual route as needed for 5 days. 02/20 completed Not Available Not Available Not Available cefdinir 300 mg capsule TAKE 1 CAPSULE BY MOUTH TWICE DAILY FOR 10 DAYS active Not Available Not Available No t Available doxycycli ne hyclate 100 mg tablet TAKE 1 TABLET BY MOUTH TWICE DAILY 07/03 completed Not Available Not Available Not Available amoxicill in 875 mg-potass ium clavulana te 125 mg tablet TAKE 1 TABLET BY MOUTH EVERY 12 HOURS FOR 5 DAYS 01/27 completed Not Available Not Available Not Available ceftriaxo ne 2 gram solution for injection 01/27 completed Not Available Not Available Not Available ertapenem 1 gram solution for injection 04/09 completed Not Available Not Available Not Available Laxative (bisacody l) 5 mg tablet,de layed release 01/27 completed Not Available Not Available Not Available aspirin 01/27 completed Not Available Not Available Not Available lancets as directed 02/20 completed LB/ak 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; Recorded 04/10/19 9:57AM by Keyana Roper, Office Visit; Refill Quantity : 90; Applicat or; Not Available Not Available Not Available glyburide two times daily 12/13 completed LB/ak; 67947; Recorded 05/03/19 3:57PM by Keyana Roper (i meryl through Celia Rodriguez MD), Annotati on/Scott dum; Mail Order Quantity : 180 Tablet; Mail Order Days: 90 Days; Refill Quantity : 180; Tablet; Not Available Not Available Not Available metoprolo l succinate daily 12/13 completed LB/ak; 31086; Recorded 05/03/19 3:54PM by Keyana Roper (Authori zed through Celia Rodriguez MD), Refill Request; Refill Quantity : 90; Tablet; Not Available Not Available Not Available THSC Levothyro xine Sodium daily 12/13 completed 23234; Recorded 05/03/19 3:53PM by Keyana Roper (Authori zed through Celia Rodriguez MD), Refill Request; Mail Order Quantity : 90 Tablet; Mail Order Days: 90 Days; Refill Quantity : 0; Not Available Not Available Not Available heparin, porcine (PF) 100 unit/mL intraveno us syringe 01/27 completed Not Available Not Available Not Available Januvia 100 mg tablet daily 12/13 completed 81996; Recorded 05/03/19 3:56PM by Keyana Roper (Authori heberd through Celia Rodriguez MD), Annotati on/Adden dum; Mail Order Quantity : 90 Tablet; Mail Order Days: 90 Days; Refill Quantity : 90; Tablet; Not Available Not Available Not Available Symbicort 80 mcg-4.5 mcg/actua tion HFA aerosol inhaler 11/18 completed Not Available Not Available Not Available FeroSul 325 mg (65 mg iron) tablet TAKE 1 TABLET BY MOUTH TWICE DAILY active Not Available Not Available No t Available Probiotic and Acidophil us 300 million cell-250 mg capsule Take 1 capsule every day by oral route for 90 days. 01/27 completed Not Available Not Available Not Available Dificid 200 mg tablet Take 1 tablet twice a day by oral route. active Not Available Not Available No t Available Lactobaci llus acidophil us 500 million cell capsule active Not Available Not Available Not Available Vitals Date Recorded Body height Body mass index (BMI) Body weight Body temperature Heart rate Oxygen saturation Oxygen saturation in Arterial blood by Pulse oximetry Systolic blood pressure Diastolic blood pressure Provider Name and Address Organization Details Last Updated DateTime 157.48 cm 42.1 kg/m2 390532. 25 g 97.4 [degF] 74 /min 97 % 97 % 138 mm[Hg] 70 mm[Hg] Ariana Berg [facility] 4 14:00:16 Date Recorded Body height Body mass index (BMI) Body weight Body temperature Oxygen saturation Oxygen saturation in Arterial blood by Pulse oximetry Heart rate Systolic blood pressure Diastolic blood pressure Provider Name and Address Organization Details Last Updated DateTime 5 157.48 cm 43.5 kg/m2 587214. 98 g 97.7 [degF] 97 % 97 % 63 /min 150 mm[Hg] 88 mm[Hg] JOANNA CÁRDENAS [facility], LJaelynLJaelynCJaelyn 5 11:23:18 Date Recorded Body height Body mass index (BMI) Body weight Body temperature Oxygen saturation Oxygen saturation in Arterial blood by Pulse oximetry Heart rate Systolic blood pressure Diastolic blood pressure Provider Name and Address Organization Details Last Updated DateTime 5 157.48 cm 43.5 kg/m2 463314. 98 g 97.3 [degF] 94 % 94 % 74 /min 142 mm[Hg] 86 mm[Hg] [facility] LJaelynLJaelynCJaelyn 5 15:51:02 Date Recorded Body height Body mass index (BMI) Body weight Oxygen saturation Oxygen saturation in Arterial blood by Pulse oximetry Inhaled oxygen flow rate Heart rate Body temperature Provider Name and Address Organization Details Last Updated DateTime 5 157.48 cm 43.5 kg/m2 436761. 98 g 94 % 94 % 2 L/min 73 /min 97.5 [degF] [facility]CJaelyn 5 11:13:46 Social History Question Answer Notes LastModified by Organizat ion Details LastModified Time Tobacco Smoking Status Never Smoker KEYANA ROPER [facility]elyn 07/24/2022 16:30:02 What Is Your Level Of Alcohol Consumption? None [email or web address] Information not available 07/24/2022 What Was The Date Of Your Most Recent Tobacco Screening? 11/19/2023 [email or web address] Information not available 11/19/2023 Do You Use Any Illicit Or Recreational Drugs? No [email or web address] Information not available 07/24/2022 Sex: Unknown Functional Status None recorded. Mental Status None recorded. Family History Relationship Description Onset Age of this Age Resolved Age Notes LastModified by Organization Details LastModified Time Mother Heart disease dad Not available 11/24 15:13:48 Mother Diabetes mellitus Not available 11/24 15:13:20 Medical History Condition Response Coronary Artery Disease N Other Y Gout N Kidney Stones N Blood Diseases N Hyperthyroidism N Breast Cancer N Blood Transfusion N Hypothyroidism Y Depression N COPD N Lung Disease N Defects or Inherited Disease N Developmental or Behavioral Disorders N Breast Problem N Difficulty Swallowing N Anesthesia Complications N Anxiety Disorder N Meniere's disease N Muscle, Joint, or Bone Problems N Vision or Eye Problems N Arthritis N Polyps N Infertility N Cancer Y Varicosities N Stroke Y Endometriosis N Bladder or Kidney Problems N High Cholesterol Y Liver Disease N Headaches N Fibromyalgia N Kidney Disease Y Allergies/Hayfever N Heart Problems N Ear or Hearing Problems N Hospitalizations N Thyroid Problems N GI Problems Y ADD/ADHD N Skin Problems N Eating Disorder N Anemia Y Constipation N Mental Illness N Ovarian Cancer N Diabetes Y Bedwetting N Seizures/Epilepsy N Tuberculosis N Eczema N Diverticulitis N Abuse/Domestic Violence N Asthma N Reflux/GERD N Hepatitis N Heart Disease N Pulmonary Embolism N Chronic Ear Infections N Pre-Eclampsia N Hypertension Y Chicken Pox N Autism Spectrum Disorder (ASD) N Osteoporosis N Thrombophilias N Gynecological History Statement/Question Response Date of Last Pap Smear Obstetrics History GPAL:G 1 P 1 0 0 1 Type Value Full Term 1 Living 1 Total 1 Immunizations Vaccine Type Date Status Note Provider Nam e and Address Organization Details Recorded Time Influenza, split virus, quadrivalent, preservative [address] [facility] 12/13/2022 15:09:21 COVID-19, mRNA, LNP-S, PF, 30 mcg/0.3 mL dose [address] [facility].L.CJaelyn 12/13/2022 15:09:21 COVID-19, mRNA, LNP-S, PF, 30 mcg/0.3 mL dose [address] [facility]elyn 12/13/2022 15:09:21 Past Encounters Encounter ID Performer Location Encounter Start Date Encounter Closed Date Diagnosis/Indication Diagnosis SNOMED-CT Code Diagnosis ICD10 Code Diagnosis Note [id number] Celia Rodriguez MD [facility] ([facility]) [address] [place] [address] [id number] 5 07/24/2022 16:08:36 07/30/2022 14:50:02 Hypothyroidism 46709891 E03.9 Diabetes mellitus 806935 09 E11.9 They had stopped her dm meds due to low sugars in the hospital. I recommend restarting 1 glyburide daily. Keep checking sugars and let us know if they are increasein g. Hospital i npatient stay within past 30 days [id number] 106 Z76.89 for UTI, completed cipro even though it made her hands swell and rash. have H&P but not d/c summary. [id number] Celia Rodriguez MD [facility] ([facility]) [address] [place] [address] [id number] 5 12/13/2022 15:05:38 12/13/2022 15:42:05 Gout 04237374 M10.9 exam not really consistent w gout but history is. [id number] MARGUERITE WARNER [facility] ([facility]) [address] [place] [address] [id number] 5 12/22/2022 11:37:13 12/22/2022 13:05:05 Acute gastroenteritis 79530167 K52.9 [id number] Celia Rodriguez MD [facility] ([facility]) [address] [place] [address] [id number] 5 12/24/2022 14:16:51 12/24/2022 15:24:29 Diarrhea 74862307 R19.7 check stool studies then start lomotil. Mild dehydration 3439822 119 108 E86.0 Pt was advised to drink something with calories for the next 2-5 days - at least 24 oz daily. She has been doing zero sugar 7up and Gatorade but needs some sugar and electolyte s. [id number] LORIE EAGLE PA-C [facility] ([facility]) [address] [place] [address] [id number] 5 12/25/2022 10:53:57 12/25/2022 16:50:30 Adult health examination 259322564 Z00.00 offered vaccines today Prevnar 20 and flu and she declined due to diarrhea. Diabetes mellitus 497922 09 E11.9 Hypothyroidism 37154745 E03.9 Screening mammography 24 054779 Z12.31 Urinary incontinence [address] Simmons History of malignant lymphoma 044849545 Z85.72 2001 and 2010 IN remission. no longer follows with oncology. [id number] Celia Rodriguez MD [facility] ([facility]) [address] [place] [address] [id number] 5 02/20/2023 10:44:03 02/20/2023 15:52:05 Benign essential hypertension 5613948 I10 Type 2 marla betes mellitus 79947880 E11.9 Anemia 738084272 D64.9 Fatigue 57436067 R53.83 Foot callus 957709073 L8 4 soak, pumice, moisturize . she used to see but they are now out of her network. [id number] Celia Rodriguez MD [facility] ([facility]) [address] [place] [address] [id number] 5 04/18/2023 14:08:57 04/18/2023 15:19:13 History of malignant neoplasm of bladder 078466274 Z85.51 History of non-Hodgkins lymphoma 026900984 Z85.72 Type 2 marla betes mellitus 19473523 E11.9 Morbid obesity 851139781 E66.01 Hypothyroidism 60216523 E03.9 Hyperlipidemia 18716657 E78.5 they took away her simvastati n, they put her on atorvastat in 40mg. Essential hypertension 34023071 I10 Disorder o f carotid artery 464569394 I77.9 very severe plaque in distal bilateral ICA's left greater than right. Serum iron below reference range 551924483 R79.0 History of transient ischemic attack 141582504 Z86.73 Hospital i npatient stay within past 30 days 4681789322 106 Z76.89 [id number] JUANIS DEAN [facility] ([facility]) [address] [place] [address] [id number] 5 05/14/2023 10:20:21 05/15/2023 09:17:34 Acute urinary tract infection 556990788 N39.0 [id number] Celia Rodriguez MD [facility] ([facility]) [address] [place] [address] [id number] 5 07/04/2023 14:00:10 07/04/2023 15:50:07 Hospital inpatient stay within past 30 days 6649122215 106 Z76.89 for pyelonephr itis with acute on chronic renal insufficie ncy. Still has a catheter.u rine is clear yellow. she seems to be well hydrated currently. keep f/u with urology on Saturday. 07/04/23 [id number] Celia Rodriguez MD [facility] ([facility]) [address] [place] [address] [id number] 5 08/08/2023 09:53:22 08/08/2023 13:09:59 Benign essential hypertension 2732020 I10 she only had the one wrist-cuff BP elevation. My nurse will call [facility] and ask them to not use a wrist cuff. 08/06/23. Recurrent urinary tract infection 706906708 N39.0 her u/a was positive. My nurse called Urology to report the u/a results and they said they would be handling the abx. We requested that [facility] send results to urology since they are managing her catheter. [id number] JUANIS DEAN [facility] ([facility]) [address] [place] [address] [id number] 5 08/15/2023 09:38:24 08/15/2023 10:22:12 Benign essential hypertension 4982999 I10 she only had the one wrist-cuff BP elevation. My nurse will call [facility] and ask them to not use a wrist cuff. 08/06/23. Diabetes mellitus 946409 09 E11.9 They had stopped her dm meds due to low sugars in the hospital. I recommend restarting 1 glyburide daily. Keep checking sugars and let us know if they are increasein g. Hypothyroidism 80322276 E03.9 [id number] Celia Rodriguez MD [facility] ([facility]) [address] [place] [address] [id number] 5 08/21/2023 10:24:17 08/21/2023 12:26:06 Benign essential hypertension 7559441 I10 controlled Diabetes mellitus 000581 09 E11.9 she is not too happy with the 7.0 A1C, her glyburide was decreased due to low sugars. she still stays a little low cause she doesnt like to eat lunch. for now we will cont the 2.5mg and monitor. 08/21/23 Hypercholesterolemia 136 11079 E78.00 she changed from simvastati n to atorvastat in and wondered if there was a difference in her lipids - trend overall looks the same. 08/21/23 Hypothyroidism 48102015 E03.9 tsh wnl. Anemia 959052638 D64.9 on iron BID since dx. recheck labs 08/21/23 Recurrent urinary tract infection 516766953 N39.0 her u/a was positive. My nurse called Urology to report the u/a results and they said they would be handling the abx. We requested that [facility] send results to urology since they are managing her catheter. 08/08/23 pt says she never got an antibiotic .she had an u/s done on her kidneyshe goes back to see in a couple weeks. she still has the catheter. she is not having symptoms of uti.I'm not sure why urology would not have start abx. we will call then to inquire. 08/21/23 [id number] Celia Rodriguez MD [facility] ([facility]) [address] [place] [address] [id number] 5 10/01/2023 10:35:38 10/01/2023 15:48:16 Anemia 410025409 D64.9 on iron BID since dx Mar 2023. iron levels have been wnl. hx of lymphoma. I suspect it is secondary to chronic illness and all she has been through recently with [facility].... but I discussed my concern with her that it could be something more ominous. recheck hg today. if not improved then cosider heme/onc referral. 10/01/23 History of cerebrovascular accident 577567868 Z86.Mar, underwent ICA angioplast y in Apr 2023. [id number] Celia Rodriguez MD [facility] ([facility]) [address] [place] [address] [id number] 5 10/17/2023 10:30:50 10/17/2023 12:03:40 Acute upper respiratory infection 73007152 J06.9 Dr. Clarke is no longer here and pt. is needing her Symbicort filled. She doesnt have a diagnosis for it...we will do records request. per pt it was only for infection. in that case she would not need it chronicall y. we will keep her off it for now since she is certain she did not have another dx. she will contact us with any breathing issues. 10/17/23 [id number] Celia Rodriguez MD [facility] ([facility]) [address] [place] [address] [id number] 5 11/14/2023 10:52:14 11/18/2023 18:46:49 History of sepsis 7223537511 85477 Z86.19 Acute pyelonephritis 366 73338 N10 recent hospitaliz zation for stents replaced. 11/14/23 Clostridiu m difficile colitis 773206029 A04.72 resolved. consider trial of probiotic. she has been on so many abx in the last 5 mo. 11/14/23 Hospital i npatient stay within past 30 days 0123028749 106 Z76.89 Pyelonephr itis, CDiff, urosepsis. Right ureter stent placed on 11/03/2023. ...11/14/23 Hyperlipidemia 53740900 E78.5 they took away her simvastati n, they put her on atorvastat in 40mg. Diabetes mellitus 025371 09 E11.9 sugars are elevated outside the hospital most >150. restart 2.5 mg glyburide. keep checking sugars 11/14/23 Multiple n odules of lung 714997978 R91.8 she had a pet scan in May with [facility] - no cancer. no difference in the nodules then.[facility], with this recent hospitaliz ation she had a repeat CT scan that showed nodular growth from September to now (13-22mm), also recent cavitation of the lesions. she needs pulmonary f/u ([facility] is gone so new referral placed). [id number] MARGUERITE TRINH [facility] ([facility]) [address] [place] [address] [id number] 5 11/19/2023 09:13:55 11/19/2023 10:06:08 Adult health examination 856488441 Z00.00 Screening for osteoporosis 004087962 Z13.820 Screening mammography 24 598466 Z12.31 [id number] Kwaku Yeboah DO [facility] ([facility]) [address] [place] [address] [id number] 5 01/07/2024 08:09:30 01/07/2024 16:58:08 Benign essential hypertension 9836590 I10 Hospital i npatient stay within past 30 days 2009153979 106 Z76.89 Chronic ki dney disease stage 3 504279844 N18.30 Type 2 marla betes mellitus 14350180 E11.9 [id number] Kwaku Yeboah DO [facility] ([facility]) [address] [place] [address] [id number] 5 01/16/2024 09:01:31 01/16/2024 17:28:47 Benign essential hypertension 0539812 I10 History of sepsis 114242 1191 12254 Z86.19 Anemia 057664078 D64.9 [id number] Hardik Eagle MD [facility] ([facility]) [address] [place] [address] [id number] 5 01/28/2024 13:35:10 01/28/2024 14:50:20 Acute gastrointestinal hemorrhage 13322598 K92.2 has a history of iron infusion.n o transfusio n nor endoscopy was performed. was suspected to have diverticul ar bleeding.w ill refer for endoscopys he prefers to go to [facility] so her care can be most helpfully coordinate d. History of Intestinal infection caused by Clostridioides difficile 1888353385 62619 Z86.19 Open wound of skin 15696 43122 01 T14.8XXA Candidiasis of skin 4988 3006 B37.2 [id number] Celia Rodriguez MD [facility] ([facility]) [address] [place] [address] [id number] 5 04/09/2024 10:40:07 04/09/2024 13:00:12 Hospital inpatient stay within past 30 days 7691736995 106 Z76.89 bilateral renal stents replaced. 04/09/2024 Essential hypertension 64355493 I10 yesterday increased from lisinopril nephrologi st. 04/09/2024 Cerebrovas cular accident 990946298 I63.9 thats the doctor that wont return calls. thinks she in noncomplie nt.MRA in september and seem to think there is another blockage in the brains.Dr. Kearns at [facility] .records request Dr. Kearns... Once we have records perhaps we can refer to different neurosurge on in [place] as they would like to centralize all her care to 1 location. 04/09/2024 Obstructiv e sleep apnea of adult 5290052391 103 G47.33 They state they need an order from me to adjust her CPAP settings according to her recent sleep study. We do not have any records of this recent sleep study. Typically the titration is done through the service providing the CPAP machine. We will try to obtain records from [place] 04/09/2024 Type 2 marla betes mellitus 04605381 E11.9 The patient felt that her sugars have not been well-contr olled lately and thought that her numbers would be bad. However [place] reports an hemoglobin A1c of 6.2 done 03/28/2024. 04/09/24 [id number] Celia Rodriguez MD [facility] ([facility]) [address] [place] [address] [id number] 5 04/15/2024 15:43:37 04/15/2024 17:08:36 Obstructive sleep apnea syndrome 01177151 G47.33 We are awaiting records of her recent sleep study from [place] so that we can inform [facility] and they can adjust her CPAP settings. Pre-surger y evaluation 720950254 Z01.818 Pt is at slightly above average risk for surgical procedures but has not major contraindi cations to cataract surgery at this time. ACS NSQIP done. letter composed and sent to . 04/15/24 [id number] JUANIS DEAN [facility] ([facility]) [address] [place] [address] [id number] 5 04/15/2024 15:26:12 04/16/2024 09:59:31 Chronic kidney disease stage 3 033772983 N18.32 Hypocalcemia 1446063 E83 .51 Anemia 006346370 D63.1 on iron BID since Mar 2023. iron levels have been wnl. hx of lymphoma. I suspect it is secondary to chronic illness and all she has been through recently with [facility].... but I discussed my concern with her that it could be something more ominous. recheck hg today. if not improved then cosider heme/onc referral. 10/01/23 Type 2 marla betes mellitus without complication 593017341 E11.9 [id number] Celia Rodriguez MD [facility] ([facility]) [address] [place] [address] [id number] 5 04/27/2024 11:07:49 04/28/2024 16:40:43 COVID-19 872793179 U07.1 on home oxygen. satting 94%. 04/27/24 Hospital i npatient stay within past 30 days 0910101322 106 Z76.89 Admitted overnight for Flu A and Covid on 04/21/2024 at [facility]. Influenza caused by Influenza A virus 811809403 J09.X2 received tamiflu. 04/27/24 Health Concerns Section Related Observation LastModified by Organization Detai ls LastModified Time None Recorded Concern Status LastModified by Organization Details LastModified Time None Recorded Advance Directives Directive None Recorded Payers Encounter Date Sequence Insurance Name Policy Number Policy Walters Covered Member ID Walters Member ID Guarantor Name 01/28/2024 1 [employer] (MEDICARE REPLACEMENT/A DVANTAGE - PPO) Macey Brush [id number] Macey Brush 04/09/2024 1 [employer] (MEDICARE REPLACEMENT/A DVANTAGE - PPO) Macey Brush [id number] Macey Brush 04/15/2024 1 [employer] (MEDICARE REPLACEMENT/A DVANTAGE - PPO) Macey Brush [id number] Macey Brush 04/15/2024 1 [employer] (MEDICARE REPLACEMENT/A DVANTAGE - PPO) Macey Brush [id number] Macey Brush 04/27/2024 1 [employer] (MEDICARE REPLACEMENT/A DVANTAGE - PPO) Macey Brush [id number] Macey Brush Notes Date Note Type Note Provider Name and Address Organization Details Recorded Time 01/28/2024 text/html Generic HPI TemplateReported bypatient.Context:Pt is here for a hospital f/u. She was in the hospital due to GI bleeding, anemia, and a UTI. She had 3 episodes of bloody stool prior to the hospital stay. She is no longer having bloody, stool. She states her weakness and fatigue is improving. The bleeding was bright red blood per rectum.Notes:She has been admitted to the hospital 6 times since June.this most recent hospitalization was two days she reports. Hardik Eagle MD [address] [place], [address], [facility] 01/28/2024 14:25:41 04/09/2024 text/html The patient is h ere for hospital follow-up. She was hospitalized again at [place] and had urinary obstruction with bilateral hydronephrosis. Bilateral stents were replaced. She has follow-up with Dr. Simmons. Her daughter who was in [place] is here with her today. She had some acute on chronic kidney disease during the hospitalization.Her blood pressure is not at goal today but she saw nephrology yesterday and they adjusted her lisinopril. Months ago her Plavix and aspirin were stopped. The daughter is questioning if her aspirin at least should be restarted. They would like to centralize all her care to 1 location. Most of her specialists are in [place] but then the neurosurgeon is in [place]. They were told that the neurosurgeon in [place] was unable to address her issue so they were sent to [place]. They have had trouble contacting this neurosurgeon and getting follow-up on her MRI/MRA. There was some misunderstanding where he may have thought she was being noncompliant however she was ill and hospitalized.... She had a sleep study done while at [place] and they said that they needed an order from me to change her CPAP settings Celia Rodriguez MD [address] [place], [address], [facility] 04/14/2024 18:28:42 04/15/2024 text/html 1 week f/uCpap i s through [facility]. The last sleep study they have was from 2017 and that's the last one they used for the settings. But she recently had 1 done at [place] during her last hospitalization. We have not gotten a copy of this record yet. Pt's daughter reports: She is supposed to have eye surgery next Saturday and she needs a medical clearance for surgery. I have cataracts and they are going to do the lens or whatever it is that they do. I do not think they do general anesthesia, I think it's just like 15 minutes an you're done so I do not think they put you to sleep. I got my mid line out the other day. Celia Rodriguez MD [address] [place] [address], [phone], [facility], [facility] 04/21/2024 17:55:47 04/27/2024 text/html hosp f/uFlu A an d covid positivesent home on 2L of oxygen, tamiflu and dexamethasone Celia Rodriguez MD [address] [place] [address], [phone], [facility] 04/28/2024 14:56:35 OBGyn Episode No OBEpisode recorded.
--- OUTSIDE RECORDS SUMMARY | 2024-05-12 11:20 | XMS_ITS | Encounter Summary ---
Author Organization [facility] Address [address] [place] [address] Care Team Providers Care Service Member Name Role Phone Unavailable Primary Care Provider Unavailabl e Encounter Details Date Type Department Care Team (Latest Contact Info) Description 10/13/1999 Outpatient Historical [facility] Scooby H NO ADDRESS ON FILE Routine medical exam (Primary Dx); Screening for malignant neoplasm of the cervix; Obesity, unspecified; Type II or unspecified type diabetes mellitus without mention of complication, not stated as uncontrolled (CMS/HCC) Social History Tobacco Use Types Packs/Day Years Used Date Smoking Tobacco: Never Assessed Comments Unknown Sex and Gender Information Value Date Recorded Sex Assigned at Not on file 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
--- OUTSIDE RECORDS SUMMARY | 2024-05-12 11:20 | XMS_ITS | Encounter Summary ---
Author Organization [facility] Address [address] [place] [address] Care Team Providers Care Branch Operations Coordinator Name Role Phone Unavailable Primary Care Provider Unavailabl e Encounter Details Date Type Department Care Team (Latest Contact Info) Description 08/14/1999 Outpatient Historical [facility] Chasegrace Scooby Akin NO ADDRESS ON FILE Type II or unspecified type diabetes mellitus without mention of complication, not stated as uncontrolled (CMS/HCC) (Primary Dx); Other specified menopausal and postmenopausal disorder; Goiter, unspecified Social History Tobacco Use Types Packs/Day Years Used Date Smoking Tobacco: Never Assessed Comments Unknown Sex and Gender Information Value Date Recorded Sex Assigned at Not on file 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
--- OUTSIDE RECORDS SUMMARY | 2024-05-12 11:20 | XMS_ITS ---
Author Organization [facility] Address [address] [place] [address] Care Team Providers Care Film Reproducer Name Role Phone Celia Louis Primary Care Provider Patricia Kirkpatrick Unavailable [phone] Abelardo Monge JR Unavailable [phone] REASON FOR VISIT Orders for Signature Encounters Encounter Location Date Provider Diagnosis [facility] [address] [place] [address], [place] [address] 04/27/2024 Abelardo Monge Plan Of Treatment Next Appt Details Provider Name:Abelardo del rosario, 05/26/2024 12:30:00 PM, [address] [place] [address], [facility], [place], [address], Provider Name:Nish Martin, 08/24/2024 01:30:00 PM, [address] [place] [address] [facility] [address], [place], [address], Progress Notes * ALCIRA BECKMAN KDOB: [birth year] (68 yo F)Acc No.[id number]:04/27/2024 Patient:?ALCIRA BECKMAN :1955???Age:68 Y???Sex:Female Address:[address] [place] [phone] * true * Date:? Generated for Printi ng/Faxing/eTransmitting on:?05/12/2024 11:20 AM CHANNEL MAN
--- OUTSIDE RECORDS SUMMARY | 2024-05-12 11:20 | XMS_ITS | Encounter Summary ---
Author Organization [facility] Address [address] [place] [address] Care Team Providers Care Capacity Planning Engineer Name Role Phone Unavailable Primary Care Provider Unavailabl e Encounter Details Date Type Department Care Team (Latest Contact Info) Description 06/28/2000 Outpatient Historical [facility] Chasegrace Scooby H NO ADDRESS ON FILE Type II or unspecified type diabetes mellitus without mention of complication, not stated as uncontrolled (CMS/HCC) (Primary Dx); Unspecified hypothyroidism; Unspecified essential hypertension; Screening for lipoid disorders Social History Tobacco Use Types Packs/Day Years Used Date Smoking Tobacco: Never Assessed Comments Unknown Sex and Gender Information Value Date Recorded Sex Assigned at Not on file 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
--- OUTSIDE RECORDS SUMMARY | 2024-05-12 11:20 | XMS_ITS | Encounter Summary ---
Author Organization [facility] Address [address] [place] [address] Care Team Providers Care X [employer] Wireman Name Role Phone Unavailable Primary Care Provider Unavailabl e Encounter Details Date Type Department Care Team (Latest Contact Info) Description 08/25/1999 Outpatient Historical [facility] Chasegrace Scooby H NO ADDRESS ON FILE Type II or unspecified type diabetes mellitus without mention of complication, not stated as uncontrolled (CMS/HCC) (Primary Dx) Social History Tobacco Use Types Packs/Day Years Used Date Smoking Tobacco: Never Assessed Comments Unknown Sex and Gender Information Value Date Recorded Sex Assigned at Not on file 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
--- OUTSIDE RECORDS SUMMARY | 2024-05-12 11:20 | XMS_ITS | Encounter Summary ---
Author Organization [facility] Address [address] [place] [address] Care Team Providers Care New Business Clerk Name Role Phone Unavailable Primary Care Provider Unavailabl e Encounter Details Date Type Department Care Team (Latest Contact Info) Description 07/21/1999 Outpatient Historical [facility] Scooby Desai NO ADDRESS ON FILE Other abnormal clinical finding (Primary Dx) Social History Tobacco Use Types Packs/Day Years Used Date Smoking Tobacco: Never Assessed Comments Unknown Sex and Gender Information Value Date Recorded Sex Assigned at Not on file 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
--- OUTSIDE RECORDS SUMMARY | 2024-05-12 11:20 | XMS_ITS | Continuity of Care Document ---
Author Name [facility] Address [address] [place] [address] Organization [facility] Care Team Providers Care Supervisor [place] Name Role Phone [facility] Unavailable Problems Problem Status Onset [...] syndrome, acral type Severe Drug allergy Active [facility] Latex Assertion skin irritaion Drug allergy Active [facility] Tape, Adhesive Assertion skin irritation Allergy to substance Active [facility] Encounters Location Location Details Encounter Type Encounter Number Reason For Visit Attending Provider ADM Date DC Date Status Source [facility] DIAGNOSTIC TESTING [id number] LABS PENDING Juan Jose Doll Cancel [facility] OUTPATIENT [id number] 1 YR F/U Juan Jose Doll Cancel [facility] DIAGNOSTIC TESTING [id number] 202.00:L DH,CBC,C MP Cancel [facility] DIAGNOSTIC TEST [id number] CTCHEST/ FOLLICUL AR LYMPHOMA /LUNG NODULE Juan Jose Doll Cancel [facility] DIAGNOSTIC TESTING [id number] 202.00 CBC,CMP, LDH 6 M FU Juan Jose Doll Cancel [facility] OUTPATIENT [id number] 202.00 CBC,CMP LDH 6 M FU Juan Jose Doll Cancel [facility] DI[facility] [id number] 202.00 CBC,CMP, LDH 6 M FU Juan Jose Doll Cancel [facility] OUT[facility] [id number] 202.00 CBC,CMP LDH 6 M FU Juan Jose Doll Cancel [facility] DIAGNOSTIC TESTING [id number] C85.90;C BC,CMP,L DH Cancel [facility] OUTPATIENT [id number] C85.90;C BC,CMP,L DH;1Y F/U Juan Jose Doll Cancel [facility] OUTPATIENT [id number] C85.90;C BC,CMP,L DH;1Y F/U Juan Jose Doll Cancel [facility] DIAGNOSTIC TESTING [id number] C85.90;C BC,CMP,L DH Cancel [facility] OUTPATIENT [id number] 1 YEAR FU Juan Jose Doll Cancel [facility] DIAGNOSTIC TESTING [id number] C82.90;C BC/CMP/L DH Juan Jose Doll Cancel [facility] DIAGNOSTIC TESTING [id number] C85.90;C BC,CMP,L DH Juan Jose Doll Cancel [facility] OUT[facility]IENT [id number] C85.90;C BC,CMP,L DH;1Y F/U Juan Jose Doll Cancel [facility]
--- OUTSIDE RECORDS SUMMARY | 2024-05-12 11:21 | XMS_ITS ---
Author Organization [facility] Address [address] [place] [address] Care Team Providers Care Dredge Pump Operator Name Role Phone Ceila Louis Primary Care Provider Patricia Kirkpatrick Unavailable [phone] Abelardo Monge JR Unavailable [phone] REASON FOR VISIT Orders for Signature Encounters Encounter Location Date Provider Diagnosis [facility] [address] [place] [address], [place] [address] 05/04/2024 Abelardo Monge Plan Of Treatment Next Appt Details Provider Name:Abelardo del rosario, 05/26/2024 12:30:00 PM, [address] [place] [address], [facility], [place], [address], Provider Name:Nish Martin, 08/24/2024 01:30:00 PM, [address] [place] [address] [facility] [address], [place], [address], Progress Notes * ALCIRA BECKMAN KDOB: [birth year] (68 yo F)Acc No.[id number]:05/04/2024 Patient:?ALCIRA BECKMAN :1955???Age:68 Y???Sex:Female Address:[address] [place] [phone] * true * Date:? Generated for Printi ng/Faxing/eTransmitting on:?05/12/2024 11:21 AM COMMISSARY AGENT
--- OUTSIDE RECORDS SUMMARY | 2024-05-12 11:21 | XMS_ITS | Continuity of Care Document ---
Author Organization [facility] [place], LRuby, [facility] ([facility]) Address [address] [place] [address] Care Team Providers Care Hat Blocker Name Role Phone RODRIGUEZCELIA Primary Care Provider Unavailabl e Assessment No assessment recorded. Plan of Treatment Reminders Order Date Submit Date Provider Last Modified By Organization Details Last Modified Time Details Appointments None record ed. Lab None record ed. Referral None record ed. Procedures None record ed. Surgeries None record ed. Imaging None record ed. Medication Orders None record ed. Patient TargetsNo targets recorded. Patient InstructionsNo instructions recorded. Reason for Referral None Reported. Results Created Date Observation Date Name Description Value Unit Range Abnormal Flag Note LastModifiedBy Organization Detail LastModifiedTime 03/31/1903/30/2024 admit to hospi ce* No observ ation record ed. [email or web address] [address] [place], [address], 03/31/2024 13:12:32 Result Notes None recorded. 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 4 15:16:34 Type 2 diabetes mellitus without complica tion 589610195 Active 2022 Sujatha Bryant [facility], [facility]CJaelyn 4 09:25:23 Malignan t lymphoma 461459797 Completed 202212/13/2022 JOANNA CAMEJO [facility], [facility]elyn 3 15:15:13 Sleep apnea 16424504 Active 2023 JOANNA CAMEJO [facility], [facility] 4 15:31:49 Anemia 718594996 Active 2023 JOANNA CAMEJO [facility], [facility] 4 10:49:28 History of cerebrov ascular accident 202497988 Active 2023 JUDIE FISHER [facility] 4 15:16:29 History of malignan t lymphoma 254956412 Active 2023 JUDIE FISHER [facility] 4 15:17:01 History of sepsis 15231499169 9100 Active 2023 urosepis 2021 again in 11/03/19 24 JUDIE FISHER [facility] 4 11:01:34 Atrophy of left kidney 832252094 Active 2023 JUDIE FISHER [facility] 4 15:27:13 Recurren t urinary tract infectio n 482951583 Active 2023 JUDIE FISHER [facility] 4 15:27:23 Bilatera l hydronep hrosis 37632617 Active 2023 JUDIE FISHER [facility] 4 15:32:14 Chronic kidney disease 675864359 Active 2023 JUDIE FISHER [facility], LGorodCJaelyn 4 11:02:21 Acute pyelonep hritis 17954975 Active Dischear ged on 11/07/19 24 JUDIE FISHER [facility], NeoCJaelyn 4 11:03:51 Clostrid ium difficil e colitis 749548238 Active 2023 [facility], LJaelynL.CJaelyn 4 11:04:53 Chronic kidney disease stage 3 980206531 Active 2023 HANNA DEAN [facility], NeoCJaelyn 4 13:26:22 Type 2 diabetes mellitus 73485145 Active 2023 HANNA DEAN [facility], NallelyLJaelynCJaelyn 4 13:26:41 History of Intestin al infectio n caused by Clostrid ioides difficil e 46142194385 9101 Active 2023 Hardik Eagle MD [address] [place] [address], [phone] [facility], NallelyL.CJaelyn 4 14:07:27 Hypothyr oidism 00618572 Active 2022 JUDIE FISHER [facility], LJaelynL.CJaelyn 4 15:16:49 Hypercho lesterol emia 13377941 Active 2022 JUDIE FISHER [facility], LJaelynL.CJaelyn 4 15:16:32 Problem Notes None recorded. Procedures Surgical History Date Name Laterality Status Provider Name and Address Organization Details Recorded Time 03/28/19 25 replacement of stent completed JOANNA CAMEJO [facility], NeoCJaelyn 04/09/2024 11:30:10 11/04/19 24 insertion of stent into ureter completed [facility], Mark 11/14/2023 11:01:07 05/21/19 24 Angioplasty completed Celia Rodriguez MD [address] [place] [address], [phone], [facility], Mark 10/01/2023 15:09:57 07/14/19 23 insertion of stent into ureter completed [facility], [place] 10/01/2023 15:26:11 06/06/19 23 insertion of stent into ureter completed [facility], [place] 10/01/2023 15:25:38 04/25/19 23 Pet image ltd area completed JOANNA CAMEJO [facility], [place] 12/13/2022 15:15:41 09/01/19 22 colonoscopy completed [facility], [place] 12/20/2022 09:01:14 08/23/19 22 mammography completed [facility], [place] 12/20/2022 09:00:55 07/27/19 22 bone density scan completed [facility], [place] 11/19/2023 08:51:59 05/09/19 22 ophthalmic examination and evaluation completed [facility], NeoCJaelyn 12/20/2022 09:01:44 procedure on kidney completed JOANNA CAMEJO [facility], [place] 10/17/2023 10:40:26 replacement of stent completed JOANNA CAMEJO [facility], [place] 04/09/2024 11:29:35 Hysterectomy completed JOANNA CAMEJO [facility], [place] 12/13/2022 15:14:37 Cholecystectomy completed JOANNA CAMEJO [facility], [place] 12/13/2022 15:15:59 Episiotomy or vaginal repair completed JOANNA DARWIN CAMEJO [facility], [place] 12/13/2022 15:16:50 Imaging Results None recorded. Procedure Notes None recorded. Medical Equipment None Reported. Allergies Allergen ID Allergen Name Allergen Category Reaction Reaction Severity Criticality Documentation Date Start Date Code Code System Note Provider Name and Address Organization Details Recorded Time 2446 Cipro medicatio n rash mild low 07/24/2022 27634 3 RxNorm Sujatha Bryant [facility], [place] 4 09:19:10 2447 latex environme nt,medica tion rash mild low 07/24/2022 26728 91 RxNorm Sujatha Bryant [facility], [place] 4 09:19:19 55065 Tegaderm medicatio n rash mild low 11/19/2023 54231 UNK Sujathakvng Bryant [facility], [place] 4 09:19:28 Medications Name Sig Start Date [...] glyburide two times daily 12/13 completed LB/ak; 70164; Recorded 05/03/19 3:57PM by Keyana Roper (Authori zed through Celia Rodriguez MD), Annotati on/Adden dum; Mail Order Quantity : 180 Tablet; Mail Order Days: 90 Days; Refill Quantity : 180; Tablet; Not Available Not Available Not Available metoprolo l succinate daily 12/13 completed LB/ak; 26919; Recorded 05/03/19 3:54PM by Keyana Roper (Authori zed through Celia Rodriguez MD), Refill Request; Refill Quantity : 90; Tablet; Not Available Not Available Not Available THSC Levothyro xine Sodium daily 12/13 completed 51674; Recorded 05/03/19 3:53PM by Keyana Roper (Authori meryl through Celia Rodriguez MD), Refill Request; Mail Order Quantity : 90 Tablet; Mail Order Days: 90 Days; Refill Quantity : 0; Not Available Not Available Not Available heparin, porcine (PF) 100 unit/mL intraveno us syringe 01/27 completed Not Available Not Available Not Available Januvia 100 mg tablet daily 12/13 completed 41086; Recorded 05/03/19 3:56PM by Keyana Roper (i meryl through Celia Rodriguez MD), Annotati on/Adden dum; [...] Updated DateTime 5 157.48 cm 43.5 kg/m2 841811. 98 g 97.3 [degF] 94 % 94 % 74 /min 142 mm[Hg] 86 mm[Hg] JUDIE FISHER [facility], L.L.CJaelyn 5 15:51:02 Social History Question Answer Notes LastModified by Organizat ion Details LastModified Time Tobacco Smoking Status Never Smoker KEYANA ROPER [facility], L.LJaelynCJaelyn 07/24/2022 16:30:02 What Is Your Level Of Alcohol Consumption? None Information not available 07/24/2022 What Was The Date Of Your Most Recent Tobacco Screening? 11/19/2023 [email or web address] Information not available 11/19/2023 Do You Use Any Illicit Or Recreational Drugs? No Information not available 07/24/2022 Sex: Unknown Functional Status None recorded. Mental Status None recorded. Family History Relationship Description Onset Age of this Age Resolved Age Notes LastModified by Organization Details LastModified Time Mother Heart disease dad [email or web address] Not available 11/24 15:13:48 Mother Diabetes mellitus [email or web address] Not available 11/24 15:13:20 Medical History Condition [...] split virus, quadrivalent, preservative 5 completed JOANNA CAMEJO [facility] 12/13/2022 15:09:21 COVID-19, mRNA, LNP-S, PF, 30 mcg/0.3 mL dose 1 completed JOANNA GRANADOS NELL goldberg [facility] 12/13/2022 15:09:21 COVID-19, mRNA, LNP-S, PF, 30 mcg/0.3 mL dose 1 completed JOANNA GRANADOS NELL goldberg [facility] 12/13/2022 15:09:21 Past Encounters Encounter ID Performer Location Encounter Start Date Encounter Closed Date Diagnosis/Indication Diagnosis SNOMED-CT Code Diagnosis ICD10 Code Diagnosis Note [id number] Celia Rodriguez MD [facility] ([facility]) [address] [place] [phone] 04/09/2024 10:40:07 04/09/2024 13:00:12 Hospital inpatient stay within past 30 days 7523132439 106 Z76.89 bilateral renal stents replaced. 04/09/2024 Essential hypertension 25013073 I10 yesterday increased from lisinopril nephrologi st. 04/09/2024 Cerebrovas cular accident 631645354 I63.9 thats the doctor that wont return calls. thinks she in noncomplie nt.MRA in september and seem to think there is another blockage in the brains.Dr. Kearns at [facility] .records request Dr. Kearns... Once we have records perhaps we can refer to different neurosurge on in [place] as they would like to centralize all her care to 1 location. 04/09/2024 Obstructiv e sleep apnea of adult 9037289227 103 G47.33 They state they need an order from me to adjust her CPAP settings according to her recent sleep study. We do not have any records of this recent sleep study. Typically the titration is done through the service providing the CPAP machine. We will try to obtain records from [facility] 04/09/2024 Type 2 marla betes mellitus 34387733 E11.9 The patient felt that her sugars have not been well-contr olled lately and thought that her numbers would be bad. However [facility] reports an hemoglobin A1c of 6.2 done 03/28/2024. 04/09/24 [id number] Celia Rodriguez MD [facility] ([facility]) [address] [place] [phone] 04/15/2024 15:43:37 04/15/2024 17:08:36 Obstructive sleep apnea syndrome 20754153 G47.33 We are awaiting records of her recent sleep study from [place] so that we can inform [facility] and they can adjust her CPAP settings. Pre-surger y evaluation 608360415 Z01.818 Pt is at slightly above average risk for surgical procedures but has not major contraindi cations to cataract surgery at this time. ACS NSQIP done. letter composed and sent to . 04/15/24 [id number] JUANIS DEAN [facility] ([facility]) [address] [place] [id number] 04/15/2024 15:26:12 04/16/2024 09:59:31 Chronic kidney disease stage 3 320692791 N18.32 Hypocalcemia 3588454 E83 .51 Anemia 199106644 D63.1 on iron BID since Mar 2023. iron levels have been wnl. hx of lymphoma. I suspect it is secondary to chronic illness and all she has been through recently with [facility].... but I discussed my concern with her that it could be something more ominous. recheck hg today. if not improved then cosider heme/onc referral. 10/01/23 Type 2 marla betes mellitus without complication 313201551 E11.9 Health Concerns Section Related Observation LastModified by Organization Detai ls LastModified Time None Recorded Concern Status LastModified by Organization Details LastModified Time None Recorded Payers Encounter Date Sequence Insurance Name Policy Number Policy Walters Covered Member ID Walters Member ID Guarantor Name 04/15/2024 1 [employer] (MEDICARE REPLACEMENT/A DVANTAGE - PPO) Macey Brush [id number] Macey Brush Notes Date Note Type Note Provider Name and Address Organization Details Recorded Time 04/15/2024 text/html 1 week f/uCpap is through [facility]. The last sleep study they have was from 2016 and that's the last one they used for the settings. But she recently had 1 done at [place] during her last hospitalization. We have not [...] out the other day. Celia Rodriguez MD [address] [place] [address], [phone], [facility], [place] 04/21/2024 17:55:47 OBGyn Episode No OBEpisode recorded.
--- OUTSIDE RECORDS SUMMARY | 2024-05-12 11:22 | XMS_ITS | Encounter Summary ---
Author Organization [employer] [facility] Address [address] [place] [address] Care Team Providers Care Audio Video Technician Name Role Phone Unavailable Primary Care Provider Unavailabl e Encounter Details Date Type Department Care Team (Latest Contact Info) Description 10/22/2000 Outpatient Historical [facility] Chasegrace Scooby H NO ADDRESS ON FILE Gynecologic examination (Primary Dx); Screening for malignant neoplasm of the cervix; Need for prophylactic hormone replacement therapy (postmenopausal); Screening for nephropathy Social History Tobacco Use Types Packs/Day Years Used Date Smoking Tobacco: Never Assessed Comments Unknown Sex and Gender Information Value Date Recorded Sex Assigned at Not on file 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
--- OUTSIDE RECORDS SUMMARY | 2024-05-12 11:22 | XMS_ITS | Clinical Summary ---
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
--- OUTSIDE RECORDS SUMMARY | 2024-05-12 11:22 | XMS_ITS | Encounter Summary ---
Author Organization [employer] [facility] Address [address] [place] [address] Care Team Providers Care Cylinder Head Assembler Name Role Phone Unavailable Primary Care Provider Unavailabl e Encounter Details Date Type Department Care Team (Latest Contact Info) Description 01/21/2001 Outpatient Historical [facility] Chaitanya Hernandez Jr., MD [address] [place] [address] VACCINE FOR INFLUENZA (Primary Dx) Social History Tobacco Use Types Packs/Day Years Used Date Smoking Tobacco: Never Assessed Comments Unknown Sex and Gender Information Value Date Recorded Sex Assigned at Not on file Legal Sex Female 4:00 AM 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
--- OUTSIDE RECORDS SUMMARY | 2024-05-12 11:22 | XMS_ITS | Encounter Summary ---
Author Organization [employer] [facility] Address [address] [place] [address] Care Team Providers Care Utilization Management Manager Name Role Phone Unavailable Primary Care Provider Unavailabl e Encounter Details Date Type Department Care Team (Latest Contact Info) Description 12/23/2000 Outpatient Historical [facility] Chaitanya Hernandez Jr., MD [address] [place] [phone] Type II or unspecified type diabetes mellitus without mention of complication, not stated as uncontrolled (CMS/HCC) (Primary Dx); Unspecified hypothyroidism; Need for prophylactic hormone replacement therapy (postmenopausal) Social History Tobacco Use Types Packs/Day Years Used Date Smoking Tobacco: Never Assessed Comments Unknown Sex and Gender Information Value Date Recorded Sex Assigned at Not on file 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
--- OUTSIDE RECORDS SUMMARY | 2024-05-12 11:22 | XMS_ITS ---
Author Organization [facility] Address [address] [place] [address] Care Team Providers Care Director Public Service Name Role Phone Celia Louis Primary Care Provider Patricia Kirkpatrick Unavailable [phone] Abelardo Monge JR Unavailable [phone] REASON FOR VISIT Orders for Signature Encounters Encounter Location Date Provider Diagnosis [facility] [address] [place] [address], [place] [address] 04/20/2024 Abelardo Monge Plan Of Treatment Next Appt Details Provider Name:Abelardo del rosario, 05/26/2024 12:30:00 PM, [address] [place] [address], [facility], [place], [address], Provider Name:Nish Martin, 08/24/2024 01:30:00 PM, [address] [place] [address] [facility] [address], [place], [address], Progress Notes * ALCIRA BECKMAN KDOB: [birth year] (68 yo F)Acc No.[id number]:04/20/2024 Patient:?ALCIRA BECKMAN :1955???Age:68 Y???Sex:Female Address:[address] [place] [address] * true * Date:? 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
[2024-05-12] MEDS: insulin lispro 100 unit/1 mL SUBCUT ×3 (12:00→22:10)
[2024-05-12 16:40] LABS: Glucose Point of Care 166 mg/dL (70-110)
[2024-05-12 20:50] LABS: Glucose Point of Care 296 mg/dL (70-110)
[2024-05-12] MEDS: atorvastatin 40 mg Tablet PO (22:10)
[2024-05-13] VITALS (7 sets, daily range): BP systolic 118–154; BP diastolic 60–82; PULSE 81–93; RESP 16–20; TEMP 36.7–36.9; O2SAT 94–98
[2024-05-13] MEDS: cefepime 1,000 mg SDV 1000 MG IVP ×2 (04:46→15:41)
[2024-05-13 06:46] LABS: Glucose Point of Care 215 mg/dL (70-110)
[2024-05-13] MEDS: aspirin 81 mg EC Tablet 162 MG PO (09:18)
[2024-05-13] MEDS: tamsulosin 0.4 mg Capsule PO (09:18)
[2024-05-13] MEDS: insulin lispro 100 unit/1 mL SUBCUT ×4 (09:18→20:44)
--- NOTE | 2024-05-13 09:52 | CT_ITS ---
WS: [id number] CT HEAD TECHNIQUE: Noncontrast CT of the head obtained from the skullbase to the vertex. CLINICAL INFORMATION: cva follow up, fluctuating symptoms COMPARISON: None. DLP: 1171.[address] scans at [facility] use at least one of these dose optimization techniques: automated exposure control; mA and/or kV adjustment per patient size (includes targeted exams where dose is matched to clinical indication); or iterative reconstruction. FINDINGS: No evidence of intracranial hemorrhage or mass effect. Ventricular system and basal cisterns are patent. Mild small vessel changes with mild parenchymal volume loss. No extra-axial fluid collections. No evidence of mass or mass effect. Small amount of patchy low-attenuation change in LEFT frontal parietal white matter may be due to subacute ischemia versus small vessel changes. This is more apparent today but may be due to angulation and technique. Fluid and mucosal thickening paranasal sinuses. Retention cyst RIGHT maxillary sinus. Normal posterior nasopharynx. Mastoid air cells are well aerated. Vascular calcification. CT/CT head wo con* 33400 IMPRESSION: 1. No evidence of intracranial hemorrhage or mass effect. 2. Mild small vessel changes. Mild parenchymal volume loss. 3. Small amount of patchy low-attenuation change in LEFT frontal parietal whit e matter may be due to subacute ischemia versus small vessel changes. This can be followed up with MRI if indicated. 4. No other suspicious findings.
--- NOTE | 2024-05-13 10:12 | PC.SOCIAL ---
IMM Updated Updated pt on IMM. No questions voiced. Provided pt a copy. Initialed, dated, & timed a copy & placed in chart.
[2024-05-13 11:39] LABS: Glucose Point of Care 341 mg/dL (70-110)
[2024-05-13 16:50] LABS: Glucose Point of Care 206 mg/dL (70-110)
--- NOTE | 2024-05-13 17:21 | P.PN_ITS ---
Subjective 2 Subjective: Symptoms are worsened with more pronounced weakness in right upper extremity. Vitals/I&O/Wt Last Vital Signs Temp 98.4 F 05/13/24 13:00 Pulse 91 05/13/24 13:00 Resp 20 H 05/13/24 13:00 BP 154/82 05/13/24 13:00 Pulse Ox 98 05/13/24 13:00 O2 Del Method Room Air 05/13/24 13:00 05/13/24 05/13/24 05/13/24 06:59 14:59 22:59 Intake Total 400 / 900 120 / 120 Balance 400 / 900 120 / 120 Weight last 48 hrs Weight 99.201 kg Weight 95.98 kg Physical Exam 2 Const: COMMON NORMALS: patient oriented x3 and alert GENERAL APPEARANCE: c ooperative ORIENTATION/CONSCIOUSNESS: Yes awake HENMT: COMMON NORMALS: oropharynx normal Neck/C-Spine: COMMON NORMALS: no JVD Resp: COMMON NORMALS: normal respiratory effort and clear to auscultation bilaterally AUSCULTATION: clear to auscultation bilaterally Cardio: COMMON NORMALS: no JVD, regular rhythm, S1 normal heart sound present, S2 normal heart sound present and No murmurs present (Cardio) RHYTHM: regular rhythm HEART SOUNDS: S1 normal heart sound present and S2 normal heart sound present GI: COMMON NORMALS: Normal to inspection, nondistended, normoactive bowel sounds present, Soft to palpation and non-tender PALPATION: Yes Soft to palpation Extremity: COMMON NORMALS: no joint enlargement and no pedal edema Neuro: COMMON NORMALS: patient oriented x3 and moves all extremities S ENSORIUM/ORIENTATION: Yes alert OTHER: She follows directions readily, no difficulty with horizontal tracking. FNF normal, minimally slightly slowed on the right compared to the left. Visual aguilar full to confrontation. No visual extinction. LUE noticeably weaker, some effort against gravity. Right lower extremity with minimal drift compared to the left. Sensory exam symmetrical, without sensory extinction. Skin: COMMON NORMALS: no rashes or lesions noted GENERAL SKIN EXAM: no rashes or lesions noted Data 05/11/24 08:31 05/11/24 08:31 Micro: Microbiology 05/11/24 10:32 Urine Culture - Final Urine,Clean Catch A&P Assessment and plan (1) CVA (cerebral vascular accident): With worsening symptoms, no sleep weaker right upper extremity today. Repeat head CT requested, reviewed, no bleeding. Requested reassessment by ST, PT. Continue aspirin, so far tolerating the medication. Repeat CBC to reassess for anemia with risk of bleeding, prior GI bleeding. Has received gentle IV hydration. Blood pressure is not low, on the higher side, will hold further IV fluids at current time. Reassess volume status. Maintaining oral intake. Continue to monitor blood glucose, optimize blood glucose control. Will add Lantus 5 units nightly. She had declined CT angiogram with concern for further kidney dysfunction, we have called her sole leveling machine operator to further discuss, although I have not received a call back. As per discussion she is going to check with her sole leveling machine operator, follow-up with primary provider for further decision regarding pursuing CTA for the process of determining whether she may be a candidate for additional intervention on the left carotid artery. She understands that the time window was limited to within about 2 weeks. Continue to optimize management of diabetes, A1c is 9.6. Will benefit from better blood glucose control. Discussed with her continuing insulin after discharge. Discussed with assistant case manager. Discussed with nursing. Physical therapist. Arrangements underway for posthospital rehabilitation after CVA. She had previously been discontinued off of all antiplatelets, although in the past did have endovascular procedure on her cerebral arterial circulation, although denies stent placement. Reports had PCI at [facility]. Was initially on aspirin and Plavix, Plavix was reportedly stopped due to renal dysfunction. Subsequently aspirin was stopped after diverticular bleed. Currently not on any antiplatelet. Discussed with her and her sisters risk of possible bleeding, trial of aspirin. They are agreeable to try. Start 160 mg, monitor for risk of bleeding. Reassess blood counts. Continue statin. Permissive hypertension current time, long-term will need to target blood pressure 120/80. With multiple prior CVA additional assessment with echo bubble study, monitor on telemetry currently, consider monitor at discharge, assess carotid duplex with prior arterial cerebrovascular insufficiency and currently recurrent CVA. She had just been recovering from COVID and flu at the March, possible trigger for the current CVA. (2) UTI (urinary tract infection): Reviewed urine culture, unrevealing, 30-40,000 mixed urogenital lance. For now continue empiric antibiotic. Repeat CBC. Monitor vitals. So far remaining afebrile. CT abdomen pelvis, mild bilateral hydronephrosis, noted nephrolithiasis. Without suggestion of obstructive pyelonephritis at current time. She will need follow-up as discussed with her with urology to determine whether the stents will need to be exchanged sooner given suspected infection. Monitor for risk of encephalopathy with cefepime. Qualifiers: Hematuria presence: with hematuria Urinary tract infection type: site unspecified Qualified Code(s): N39.0 - Urinary tract infection, site not specified; R31.9 - Hematuria, unspecified (3) Hematuria: Monitor for risk of worsening bleeding with aspirin. Repeat CBC. Noted nephrolithiasis, ureteral stents. Plan Diabetes: Reviewed blood glucose. Add low-dose Lantus. Continue POC glucose monitoring. Insulin sliding scale. A1c reviewed, 9.6. Discussed with her and her sister, will benefit from better control. HTN: Permissive hypertension for now. Hold antihypertensives. Reassess. Long- term target blood pressure 120/80, discussed with her and her sisters. PDMP PDMP Reviewed: Not Reviewed Attestations 2 Medical Necessity Statement*: Continue admission for assessment and management after CVA with fluctuating symptoms, optimization of control of diabetes, treatment of possible complicated UTI, further postdischarge assessment management plans. Diagnoses CVA (cerebral vascular accident) I63.9 UTI (urinary tract infection) N39.0; R31.9 Hematuria presence: with hematuria Urinary tract infection type: site unspecified Hematuria R31.9
[2024-05-13 20:36] LABS: Glucose Point of Care 215 mg/dL (70-110)
[2024-05-13] MEDS: insulin glargine 100 units/1 mL 5 UNIT SUBCUT (20:44)
[2024-05-13] MEDS: atorvastatin 40 mg Tablet PO (20:44)
[2024-05-14] VITALS (9 sets, daily range): BP systolic 117–164; BP diastolic 61–94; PULSE 78–93; RESP 16–18; TEMP 36.6–37; O2SAT 92–98
[2024-05-14] MEDS: cefepime 1,000 mg SDV 1000 MG IVP ×2 (04:24→18:07)
[2024-05-14 06:08] LABS: Glucose Point of Care 198 mg/dL (70-110)
[2024-05-14 07:27] LABS: Basophils % 0.1 %; Eosinophils # 0.1 10^3/uL (0.0-0.8); Eosinophils % 0.7 %; Hematocrit 36.5 % (36-47); Lymphocytes # 2.6 10^3/uL (0.8-4.8); Lymphocytes % 31.3 %; Mean Corpuscular HGB Conc 29.3 g/dL (30-55); Mean Corpuscular Hemoglobin 27.6 pg (27-33); Mean Corpuscular Volume 94.1 fl (85-98); Mean Platelet Volume 11.7 fL (7.4-10.4); Monocytes # 1.9 10^3/uL (0.2-0.9); Monocytes % 22.2 %; Neutrophils # 3.76 10^3/uL (1.8-7.7); Neutrophils % 45.1 %; Nucleated Red Blood Cells % 0 %; Platelet Count 117 10^3/cmm (157-399); Red Blood Count 3.88 10^6/uL (3.85-5.65); Red Cell Distribution Width 15.2 % (12.1-15.1); White Blood Count 8.36 10^3/uL (3.29-11.43)
[2024-05-14] MEDS: tamsulosin 0.4 mg Capsule PO (09:18)
[2024-05-14] MEDS: insulin lispro 100 unit/1 mL SUBCUT ×4 (09:18→20:45)
[2024-05-14] MEDS: aspirin 81 mg EC Tablet 162 MG PO (09:18)
[2024-05-14 11:03] LABS: Glucose Point of Care 286 mg/dL (70-110)
--- NOTE | 2024-05-14 15:22 | P.PN_ITS ---
Subjective 2 Subjective: Symptoms with improvement today with return of some power in RUE. Vitals/I&O/Wt Last Vital Signs Temp 98.3 F 05/14/24 07:43 Pulse 90 05/14/24 10:00 Resp 16 05/14/24 10:00 BP 132/71 05/14/24 07:43 Pulse Ox 98 05/14/24 10:00 O2 Del Method Room Air 05/14/24 10:00 Weight last 48 hrs Weight 97.477 kg Weight 99.201 kg Physical Exam 2 Const: COMMON NORMALS: patient oriented x3 and alert GENERAL APPEARANCE: c ooperative ORIENTATION/CONSCIOUSNESS: Yes awake HENMT: COMMON NORMALS: oropharynx normal Neck/C-Spine: COMMON NORMALS: no JVD Resp: COMMON NORMALS: normal respiratory effort and clear to auscultation bilaterally AUSCULTATION: clear to auscultation bilaterally Cardio: COMMON NORMALS: no JVD, regular rhythm, S1 normal heart sound present, S2 normal heart sound present and No murmurs present (Cardio) RHYTHM: regular rhythm HEART SOUNDS: S1 normal heart sound present and S2 normal heart sound present GI: COMMON NORMALS: Normal to inspection, nondistended, normoactive bowel sounds present, Soft to palpation and non-tender PALPATION: Yes Soft to palpation Extremity: COMMON NORMALS: no joint enlargement and no pedal edema Neuro: COMMON NORMALS: patient oriented x3 and moves all extremities S ENSORIUM/ORIENTATION: Yes alert OTHER: She follows directions readily, no difficulty with horizontal tracking. FNF normal, minimally slightly slowed on the right compared to the left. Visual aguilar full to confrontation. No visual extinction. LUE noticeably weaker, able to elevate RUE, with drift, not dropping by end of count. Right lower extremity with minimal drift compared to the left. Sensory exam symmetrical, without sensory extinction. Skin: COMMON NORMALS: no rashes or lesions noted GENERAL SKIN EXAM: no rashes or lesions noted Data 05/14/24 06:59 05/11/24 08:31 Micro: Microbiology 05/11/24 10:32 Urine Culture - Final Urine,Clean Catch A&P Assessment and plan (1) CVA (cerebral vascular accident): Improvement in motor function right upper extremity today, with drift, but is able to keep her right arm elevated. Further discussed with her instructor ground services Dr. Starr with regards to CKD, consideration of CTA. Discussed the discussion with her, he acknowledged the risk including renal failure, but potential benefit may outweigh the risk in his case. Discussed with her. Discussed consideration of obtaining imaging prior to discharge, possibly tonight. She would like to speak with her daughter, decide and let us know. In the meantime resume PT. Discussed with heel caser, pending authorization for rehabilitation at SNF after discharge. With worsening symptoms, no sleep weaker right upper extremity today. Repeat head CT requested, reviewed, no bleeding. Requested reassessment by ST, PT. Continue aspirin, so far tolerating the medication. Repeat CBC to reassess for anemia with risk of bleeding, prior GI bleeding. Has received gentle IV hydration. Blood pressure is not low, on the higher side, will hold further IV fluids at current time. Reassess volume status. Maintaining oral intake. Continue to monitor blood glucose, optimize blood glucose control. Will add Lantus 5 units nightly. She had declined CT angiogram with concern for further kidney dysfunction, we have called her instructor ground services to further discuss, although I have not received a call back. As per discussion she is going to check with her instructor ground services, follow-up with primary provider for further decision regarding pursuing CTA for the process of determining whether she may be a candidate for additional intervention on the left carotid artery. She understands that the time window was limited to within about 2 weeks. Continue to optimize management of diabetes, A1c is 9.6. Will benefit from better blood glucose control. Discussed with her continuing insulin after discharge. Discussed with heel caser. Discussed with nursing. Physical therapist. Arrangements underway for posthospital rehabilitation after CVA. She had previously been discontinued off of all antiplatelets, although in the past did have endovascular procedure on her cerebral arterial circulation, although denies stent placement. Reports had PCI at [facility]. Was initially on aspirin and Plavix, Plavix was reportedly stopped due to renal dysfunction. Subsequently aspirin was stopped after diverticular bleed. Currently not on any antiplatelet. Discussed with her and her sisters risk of possible bleeding, trial of aspirin. They are agreeable to try. Start 160 mg, monitor for risk of bleeding. Reassess blood counts. Continue statin. Permissive hypertension current time, long-term will need to target blood pressure 120/80. With multiple prior CVA additional assessment with echo bubble study, monitor on telemetry currently, consider monitor at discharge, assess carotid duplex with prior arterial cerebrovascular insufficiency and currently recurrent CVA. She had just been recovering from COVID and flu at the March, possible trigger for the current CVA. (2) UTI (urinary tract infection): Discussed with her urine culture results, UA, possible irritation from the stents rather than infection, although possibility of false negative and the culprit organism not identified. Discussed consideration of continuation antibiotic, but increasing risk of C. difficile, other complications, versus discontinue antibiotic, monitoring, and follow-up with urology. On consideration she is sure she wants to pursue the former option rather than the latter, acknowledging risks. Continue antibiotic coverage. Monitor for risk of C. difficile especially with history of C. difficile in the past. Monitor for risk of encephalopathy with cefepime. Reviewed urine culture, unrevealing, 30-40,000 mixed urogenital lance. For now continue empiric antibiotic. Repeat CBC. Monitor vitals. So far remaining afebrile. CT abdomen pelvis, mild bilateral hydronephrosis, noted nephrolithiasis. Without suggestion of obstructive pyelonephritis at current time. She will need follow-up as discussed with her with urology to determine whether the stents will need to be exchanged sooner given suspected infection. Qualifiers: Hematuria presence: with hematuria Urinary tract infection type: site unspecified Qualified Code(s): N39.0 - Urinary tract infection, site not specified; R31.9 - Hematuria, unspecified (3) Hematuria: Monitor for risk of worsening bleeding with aspirin. Repeat CBC. On review of CBC so far maintaining hemoglobin. Noted nephrolithiasis, ureteral stents. Plan Goals of care: She has also decided to adjust her CODE STATUS to AND in case of cardiopulmonary arrest. Diabetes: Reviewed blood glucose. Add low-dose Lantus. Continue POC glucose monitoring. Insulin sliding scale. A1c reviewed, 9.6. Discussed with her and her sister, will benefit from better control. HTN: Permissive hypertension for now. Hold antihypertensives. Reassess. Long- term target blood pressure 120/80, discussed with her and her sisters. PDMP PDMP Reviewed: Not Reviewed Attestations 2 Medical Necessity Statement*: Continue admission for assessment and management after CVA with fluctuating symptoms, optimization of control of diabetes, treatment of possible complicated UTI, further postdischarge assessment management plans. and High MDM includes amount and/or complexity of data reviewed/ordered [ resulted lab(s)/test(s), ordered lab(s)/test(s) and other healthcare professional discussion] and described risk of complication, morbidity or mortality of management as documented Diagnoses CVA (cerebral vascular accident) I63.9 UTI (urinary tract infection) N39.0; R31.9 Hematuria presence: with hematuria Urinary tract infection type: site unspecified Hematuria R31.9
[2024-05-14 16:09] LABS: Glucose Point of Care 214 mg/dL (70-110)
[2024-05-14 20:16] LABS: Glucose Point of Care 224 mg/dL (70-110)
[2024-05-14] MEDS: insulin glargine 100 units/1 mL 5 UNIT SUBCUT (20:45)
[2024-05-14] MEDS: atorvastatin 40 mg Tablet PO (20:45)
[2024-05-15] VITALS (7 sets, daily range): BP systolic 115–156; BP diastolic 70–89; PULSE 80–104; RESP 16–18; TEMP 36.4–36.8; O2SAT 94–98
[2024-05-15] MEDS: cefepime 1,000 mg SDV 1000 MG IVP ×2 (05:22→16:40)
[2024-05-15 06:18] LABS: Glucose Point of Care 151 mg/dL (70-110)
--- NOTE | 2024-05-15 09:02 | PC.SOCIAL ---
IMM Updated Updated pt on IMM. No questions voiced. Provided pt a copy. Initialed, dated, & timed copy in chart.
[2024-05-15] MEDS: tamsulosin 0.4 mg Capsule PO (09:41)
[2024-05-15] MEDS: insulin lispro 100 unit/1 mL SUBCUT ×3 (09:41→22:01)
[2024-05-15] MEDS: aspirin 81 mg EC Tablet 162 MG PO (09:41)
[2024-05-15 11:11] LABS: Glucose Point of Care 271 mg/dL (70-110)
[2024-05-15 16:35] LABS: Glucose Point of Care 116 mg/dL (70-110)
--- NOTE | 2024-05-15 20:17 | PM.PN ---
Subjective Subjective: Denies additional change, she is not consistently able to lift her right arm, but with weakness of the hand/loss of dexterity. Diminished sensation right side. Persistent right-sided facial droop. Has been working with PT. Has not changed her mind about CTA, declining the test. I have attempted again to reach out to her daughter, seems that the phone number was not turned on yesterday. But still could not reach her today. Discussed this with the patient. Discussed transfer arrangements yesterday, assessment of her case by neurosurgery and recommendation for outpatient follow-up with her neurosurgeon. She understands the time window of 1-2 weeks in case considering intervention. Vitals/I&O/Wt Last Vital Signs Temp 97.9 F 05/15/24 20:01 Pulse 103 H 05/15/24 20:01 Resp 18 05/15/24 20:01 BP 156/75 05/15/24 20:01 Pulse Ox 98 05/15/24 20:01 O2 Del Method Room Air 05/15/24 20:01 Weight last 48 hrs Weight 98.566 kg Weight 97.477 kg Physical Exam Const: COMMON NORMALS: patient oriented x3 and alert GENERAL APPEARANCE: cooperative ORIENTATION/CONSCIOUSNESS: Yes awake HENMT: COMMON NORMALS: oropharynx normal Neck/C-Spine: COMMON NORMALS: no JVD Resp: COMMON NORMALS: normal respiratory effort and clear to auscultation bilaterally AUSCULTATION: clear to auscultation bilaterally Cardio: COMMON NORMALS: no JVD, regular rhythm, S1 normal heart sound present, S2 normal heart sound present and No murmurs present (Cardio) RHYTHM: regular rhythm HEART SOUNDS: S1 normal heart sound present and S2 normal heart sound present GI: COMMON NORMALS: Normal to inspection, nondistended, normoactive bowel sounds present, Soft to palpation and non-tender PALPATION: Yes Soft to palpation Extremity: COMMON NORMALS: no joint enlargement and no pedal edema Neuro: COMMON NORMALS: patient oriented x3 and moves all extremities SENSORIUM/ORIENTATION: Yes alert OTHER: She follows directions readily, no difficulty with horizontal tracking. FNF normal, minimally slightly slowed on the right compared to the left. Visual aguilar full to confrontation. No visual extinction. LUE noticeably weaker, able to elevate RUE, with drift, not dropping by end of count. Right lower extremity with minimal drift compared to the left. Sensory exam symmetrical, without sensory extinction. Skin: COMMON NORMALS: no rashes or lesions noted GENERAL SKIN EXAM: no rashes or lesions noted Data 05/14/24 06:59 05/11/24 08:31 A&P Assessment and plan (1) CVA (cerebral vascular accident): So far appears stable in terms of improvement in function in the right upper extremity, able to elevate right upper extremity but with persistent focal deficits with loss of dexterity in the right hand, diminished sensation on the right side. Persistent right-sided facial droop. Has been working with PT. She has not changed her mind, declining CTA. Discussed with her transfer arranged understated today, her case reviewed by neurosurgery, recommendation for follow-up in office with her neurosurgeon Dr. Kearns, previously performed the endovascular procedure on her in [place]. She understands the limited time window 1-2 weeks of potential intervention. Discussed need for continuation of antiplatelet and so far she has been tolerating it. Does not note any bleeding. Will repeat CBC. Discussed with case management, physical therapist. Pending authorization for continued rehabilitation for outpatient therapy and speech therapy at [facility] Blood pressure on the high side. Will resume low-dose metoprolol. Resume her antihypertensives gradually Improvement in motor function right upper extremity today, with drift, but is able to keep her right arm elevated. Further discussed with her occupational therapist's assistant Dr. Starr with regards to CKD, consideration of CTA. Discussed the discussion with her, he acknowledged the risk including renal failure, but potential benefit may outweigh the risk in his case. Discussed with her. Discussed consideration of obtaining imaging prior to discharge, possibly tonight. She would like to speak with her daughter, decide and let us know. In the meantime resume PT. Discussed with case repairer, pending authorization for rehabilitation at [facility] after discharge. With worsening symptoms, no sleep weaker right upper extremity today. Repeat head CT requested, reviewed, no bleeding. Requested reassessment by ST, PT. Continue aspirin, so far tolerating the medication. Repeat CBC to reassess for anemia with risk of bleeding, prior GI bleeding. Has received gentle IV hydration. Blood pressure is not low, on the higher side, will hold further IV fluids at current time. Reassess volume status. Maintaining oral intake. Continue to monitor blood glucose, optimize blood glucose control. Will add Lantus 5 units nightly. She had declined CT angiogram with concern for further kidney dysfunction, we have called her occupational therapist's assistant to further discuss, although I have not received a call back. As per discussion she is going to check with her occupational therapist's assistant, follow-up with primary provider for further decision regarding pursuing CTA for the process of determining whether she may be a candidate for additional intervention on the left carotid artery. She understands that the time window was limited to within about 2 weeks. Continue to optimize management of diabetes, A1c is 9.6. Will benefit from better blood glucose control. Discussed with her continuing insulin after discharge. She had previously been discontinued off of all antiplatelets, although in the past did have endovascular procedure on her cerebral arterial circulation, although denies stent placement. Reports had PCI at [facility]. Was initially on aspirin and Plavix, Plavix was reportedly stopped due to renal dysfunction. Subsequently aspirin was stopped after diverticular bleed. Currently not on any antiplatelet. Discussed with her and her sisters risk of possible bleeding, trial of aspirin. They are agreeable to try. Start 160 mg, monitor for risk of bleeding. Reassess blood counts. Continue statin. Permissive hypertension current time, long-term will need to target blood pressure 120/80. With multiple prior CVA additional assessment with echo bubble study, monitor on telemetry currently, consider monitor at discharge, assess carotid duplex with prior arterial cerebrovascular insufficiency and currently recurrent CVA. She had just been recovering from COVID and flu at the [place], possible trigger for the current CVA. (2) UTI (urinary tract infection): Reviewed vitals, afebrile, requesting repeat CBC. So far without leukocytosis. Reviewed urine culture, final culture with mixed urogenital lance. She is wanting to continue empiric antibiotic coverage for possible urinary tract infection, although urine culture was been unrevealing. Should follow-up with urology for reassessment. Return for risk of C. difficile. De-escalate to cefdinir Discussed with her urine culture results, UA, possible irritation from the stents rather than infection, although possibility of false negative and the culprit organism not identified. Discussed consideration of continuation antibiotic, but increasing risk of C. difficile, other complications, versus discontinue antibiotic, monitoring, and follow-up with urology. On consideration she is sure she wants to pursue the former option rather than the latter, acknowledging risks. Continue antibiotic coverage. CT abdomen pelvis, mild bilateral hydronephrosis, noted nephrolithiasis. Without suggestion of obstructive pyelonephritis at current time. She will need follow-up as discussed with her with urology to determine whether the stents will need to be exchanged sooner given suspected infection. Qualifiers: Hematuria presence: with hematuria Urinary tract infection type: site unspecified Qualified Code(s): N39.0 - Urinary tract infection, site not specified; R31.9 - Hematuria, unspecified (3) Hematuria: Monitor for risk of worsening bleeding with aspirin. Repeat CBC. On review of CBC so far maintaining hemoglobin. Noted nephrolithiasis, ureteral stents. She wants to continue empiric antibiotic for possible urinary tract infection presentation. Should follow-up with urology. Plan Goals of care: She has also decided to adjust her CODE STATUS to AND in case of cardiopulmonary arrest. Diabetes: Reviewed blood glucose. Add low-dose Lantus. Continue POC glucose monitoring. Insulin sliding scale. A1c reviewed, 9.6. Discussed with her and her sister, will benefit from better control. HTN: Permissive hypertension for now. Hold antihypertensives. Reassess. Long-term target blood pressure 120/80, discussed with her and her sisters. PDMP PDMP Reviewed: Not Reviewed Attestations Medical Necessity Statement*: Continue admission for assessment and management after CVA with fluctuating symptoms, optimization of control of diabetes, treatment of possible complicated UTI, further postdischarge assessment management plans. and High MDM includes amount and/or complexity of data reviewed/ordered [ resulted lab(s)/test(s), ordered lab(s)/test(s) and other healthcare professional discussion] and described risk of complication, morbidity or mortality of management as documented Diagnoses CVA (cerebral vascular accident) I63.9 UTI (urinary tract infection) N39.0; R31.9 Hematuria presence: with hematuria Urinary tract infection type: site unspecified Hematuria R31.9
[2024-05-15] MEDS: atorvastatin 40 mg Tablet PO (20:25)
[2024-05-15 20:57] LABS: Glucose Point of Care 323 mg/dL (70-110)
[2024-05-15] MEDS: metoprolol succinate ER (24 HR) 25 mg Tablet 12.5 MG PO (22:00)
[2024-05-15] MEDS: insulin glargine 100 units/1 mL 5 UNIT SUBCUT (22:01)
[2024-05-16] VITALS (8 sets, daily range): BP systolic 115–172; BP diastolic 71–84; PULSE 68–88; RESP 14–20; TEMP 36.4–37.1; O2SAT 92–98; BMI 39.5
[2024-05-16 06:03] LABS: Eosinophils % 0.2 %; Hematocrit 31.8 % (36-47); Lymphocytes # 2.3 10^3/uL (0.8-4.8); Lymphocytes % 37.1 %; Mean Corpuscular HGB Conc 29.9 g/dL (30-55); Mean Corpuscular Hemoglobin 28.4 pg (27-33); Mean Corpuscular Volume 94.9 fl (85-98); Mean Platelet Volume 11.1 fL (7.4-10.4); Monocytes # 1.6 10^3/uL (0.2-0.9); Monocytes % 25.2 %; Neutrophils # 2.29 10^3/uL (1.8-7.7); Neutrophils % 36.9 %; Nucleated Red Blood Cells % 0 %; Platelet Count 110 10^3/cmm (157-399); Red Blood Count 3.35 10^6/uL (3.85-5.65); Red Cell Distribution Width 14.5 % (12.1-15.1)
[2024-05-16 08:35] LABS: Glucose Point of Care 247 mg/dL (70-110)
[2024-05-16] MEDS: cefdinir 300 MG CAPSULE PO ×2 (08:56→17:41)
[2024-05-16] MEDS: aspirin 81 mg EC Tablet 162 MG PO (08:56)
[2024-05-16] MEDS: tamsulosin 0.4 mg Capsule PO (08:56)
[2024-05-16] MEDS: metoprolol succinate ER (24 HR) 25 mg Tablet 12.5 MG PO (08:57)
[2024-05-16] MEDS: insulin lispro 100 unit/1 mL SUBCUT ×4 (09:00→21:26)
[2024-05-16 11:51] LABS: Glucose Point of Care 241 mg/dL (70-110)
[2024-05-16 15:11] LABS: Alanine Aminotransferase 8 U/L (0-33); Albumin Level 3.2 g/dL (3.5-5.2); Alkaline Phosphatase 119 U/L (35-105); Anion Gap 12.8 (5-19); Aspartate Amino Transferase 10 U/L (0-32); Blood Urea Nitrogen 21 mg/dL (8-23); Calcium 8.6 mg/dL (8.5-10.5); Carbon Dioxide 22 mmol/L (22-29); Chloride 107 mmol/L (98-107); Creatinine Clr Calc Pharmacy 34.4783; Globulin 3.5 g/dL (1.3-4.6); Glucose 257 mg/dL (65-115); Osmolality Calculated 298 mOsm/kg (285-295); Potassium 3.8 mmol/L (3.5-5.1); Sodium 138 mmol/L (136-145); Thyroid Stimulating Hormone 4.14 uIU/mL (0.27-4.20); Total Bilirubin 0.3 mg/dL (0.15-1.2); Total Protein 6.7 g/dL (6.6-8.7)
--- NOTE | 2024-05-16 15:39 | PM.PN ---
Subjective Subjective: Hospital course, labs appreciated. Seen with Caregiver at bedside, daughter on phone from [facility]. Patient sitting in chair. Denies any nausea counting, headache. States she is feeling stable. Vitals/I&O/Wt Last Vital Signs Temp 98.0 F 05/16/24 12:00 Pulse 78 05/16/24 12:00 Resp 14 05/16/24 12:00 BP 136/84 05/16/24 12:00 Pulse Ox 98 05/16/24 12:00 O2 Del Method Room Air 05/16/24 12:00 Weight last 48 hrs Weight 101.287 kg Weight 98.566 kg Physical Exam Narrative: Accompanied by her 2 sisters. Const: COMMON NORMALS: patient oriented x3 and alert GENERAL APPEARANCE: cooperative ORIENTATION/CONSCIOUSNESS: Yes awake HENMT: COMMON NORMALS: oropharynx normal Neck/C-Spine: COMMON NORMALS: no JVD Resp: COMMON NORMALS: normal respiratory effort and clear to auscultation bilaterally AUSCULTATION: clear to auscultation bilaterally Cardio: COMMON NORMALS: no JVD, regular rhythm, S1 normal heart sound present, S2 normal heart sound present and No murmurs present (Cardio) RHYTHM: regular rhythm HEART SOUNDS: S1 normal heart sound present and S2 normal heart sound present GI: COMMON NORMALS: Normal to inspection, nondistended, normoactive bowel sounds present, Soft to palpation and non-tender PALPATION: Yes Soft to palpation Extremity: COMMON NORMALS: no joint enlargement and no pedal edema Neuro: COMMON NORMALS: patient oriented x3 and moves all extremities SENSORIUM/ORIENTATION: Yes alert OTHER: She follows directions readily, no difficulty with horizontal tracking. FNF normal, minimally slightly slowed on the right compared to the left. Visual aguilar full to confrontation. No visual extinction. LUE noticeably weaker, able to elevate RUE, with drift, not dropping by end of count. Right lower extremity with minimal drift compared to the left. Sensory exam symmetrical, without sensory extinction. Skin: COMMON NORMALS: no rashes or lesions noted GENERAL SKIN EXAM: no rashes or lesions noted Data 05/16/24 05:41 05/16/24 14:24 A&P Assessment and plan (1) CVA (cerebral vascular accident): Appreciate CT head imaging. Appreciate PT/OT/speech evaluation. Goal blood pressure less than 140/90 MAG. Patient holding off on CTA given concerns with SAMUEL in the past. Wants to discuss further with her outpatient neurosurgeon before going ahead for CTA. Continue with aspirin, statin. Appreciate echocardiogram. Case was discussed by previous hospitalist with patient's outpatient neurosurgeons java development team lead at [place] and they had recommended patient to be followed up as an outpatient after reviewing images. Patient had endovascular procedure done in [place] by Dr. Kearns (2) UTI (urinary tract infection): History of recurrent UTIs in the past. Appreciate urine culture. Patient has finished 5-day course of IV antibiotics. Will continue cefdinir for 2 more days to finish a 7-day course. CT abdomen pelvis, mild bilateral hydronephrosis, noted nephrolithiasis. Without suggestion of obstructive pyelonephritis at current time. She will need follow-up as discussed with her with urology to determine whether the stents will need to be exchanged sooner given suspected infection. Qualifiers: Hematuria presence: with hematuria Urinary tract infection type: site unspecified Qualified Code(s): N39.0 - Urinary tract infection, site not specified; R31.9 - Hematuria, unspecified (3) Hematuria: Continue to monitor. Plan Goals of care: She has also decided to adjust her CODE STATUS to AND in case of cardiopulmonary arrest. Diabetes: A1c of 9.6. Insulin sliding scale AC ACHS. Continue with glargine 5 units nightly. CKD: Baseline creatinine seems to be around 1.5-1.8. Last checked on 05/11 of 1.4. Repeat CMP. Medical reconciliation done for nephrotoxic drugs. Discharge plan: Plan to discharge to SNF for further rehabilitation. Case management already working on the same. Care discussed in detail with patient's daughter on phone at bedside, caregiver and caregiver at bedside. All the questions were answered. PDMP PDMP Reviewed: Not Reviewed Attestations Medical Necessity Statement*: Requires further hospitalization for management of CVA, UTI in a patient with history of sleep. He Safe discharge planning discharge. Diagnoses CVA (cerebral vascular accident) I63.9 UTI (urinary tract infection) N39.0; R31.9 Hematuria presence: with hematuria Urinary tract infection type: site unspecified Hematuria R31.9
[2024-05-16 16:46] LABS: Glucose Point of Care 221 mg/dL (70-110)
[2024-05-16] MEDS: atorvastatin 40 mg Tablet PO (20:40)
[2024-05-16 21:07] LABS: Glucose Point of Care 170 mg/dL (70-110)
[2024-05-16] MEDS: insulin glargine 100 units/1 mL 5 UNIT SUBCUT (21:26)
[2024-05-17] VITALS (10 sets, daily range): BP systolic 127–172; BP diastolic 57–82; PULSE 74–99; RESP 14–19; TEMP 36.3–37; O2SAT 91–98
[2024-05-17 04:30] LABS: Eosinophils % 0.2 %; Hematocrit 30.5 % (36-47); Lymphocytes # 2.1 10^3/uL (0.8-4.8); Lymphocytes % 40.9 %; Mean Corpuscular HGB Conc 30.2 g/dL (30-55); Mean Corpuscular Hemoglobin 27.5 pg (27-33); Mean Corpuscular Volume 91.3 fl (85-98); Mean Platelet Volume 11.2 fL (7.4-10.4); Monocytes # 1.3 10^3/uL (0.2-0.9); Monocytes % 25.3 %; Neutrophils # 1.66 10^3/uL (1.8-7.7); Neutrophils % 33.2 %; Nucleated Red Blood Cells % 0 %; Platelet Count 91 10^3/cmm (157-399); Red Blood Count 3.34 10^6/uL (3.85-5.65); Red Cell Distribution Width 14.7 % (12.1-15.1); White Blood Count 5.01 10^3/uL (3.29-11.43)
[2024-05-17 04:57] LABS: Alanine Aminotransferase 7 U/L (0-33); Alkaline Phosphatase 110 U/L (35-105); Anion Gap 14.5 (5-19); Aspartate Amino Transferase 9 U/L (0-32); Blood Urea Nitrogen 19 mg/dL (8-23); Calcium 8.6 mg/dL (8.5-10.5); Carbon Dioxide 23 mmol/L (22-29); Chloride 109 mmol/L (98-107); Creatinine Clr Calc Pharmacy 34.4783; Globulin 3.6 g/dL (1.3-4.6); Glucose 149 mg/dL (65-115); Osmolality Calculated 301 mOsm/kg (285-295); Potassium 3.5 mmol/L (3.5-5.1); Sodium 143 mmol/L (136-145); Total Bilirubin 0.3 mg/dL (0.15-1.2); Total Protein 6.6 g/dL (6.6-8.7)
[2024-05-17 06:24] LABS: Glucose Point of Care 155 mg/dL (70-110)
[2024-05-17] MEDS: aspirin 81 mg EC Tablet 162 MG PO (08:43)
[2024-05-17] MEDS: metoprolol succinate ER (24 HR) 25 mg Tablet 12.5 MG PO (08:44)
[2024-05-17] MEDS: cefdinir 300 MG CAPSULE PO ×2 (08:44→17:54)
[2024-05-17] MEDS: tamsulosin 0.4 mg Capsule PO (08:44)
[2024-05-17] MEDS: insulin lispro 100 unit/1 mL SUBCUT ×4 (08:45→20:45)
[2024-05-17 11:10] LABS: Glucose Point of Care 214 mg/dL (70-110)
--- NOTE | 2024-05-17 13:50 | CTR_ITS ---
PROCEDURE INFORMATION: Exam: CTA Head With Contrast, Arteriography Exam date and time: 05/17/2024 3:35 PM Age: 69 years old Clinical indication: Other: Carotid stenosis TECHNIQUE: Imaging protocol: Computed tomographic angiography of the head with contrast. Exam focused on the arteries. 3D rendering (Not supervised by radiologist): MIP and/or 3D reconstructed images were created by the technologist. Radiation optimization: All CT scans at this facility use at least one of these dose optimization techniques: automated exposure control; mA and/or kV adjustment per patient size (includes targeted exams where dose is matched to clinical indication); or iterative reconstruction. Contrast material: OMNI 350; Contrast volume: 100 ml; Contrast route: INTRAVENOUS (IV); COMPARISON: CT angio headneck* [id number] 04/12/2023 7:03 AM RADIATION DOSE METRICS: Total DLP (mGy-cm): 1074.42 FINDINGS: ANTERIOR CIRCULATION: Right internal carotid artery: Calcifications throughout right carotid siphon with moderate stenosis proximal to the ophthalmic artery. Right middle cerebral artery: Beyond the M2 level, right middle cerebral artery branches are attenuated. Right anterior cerebral artery: Attenuation of right-sided anterior cerebral artery branches. Left internal carotid artery: Left internal carotid artery is occluded intracranially and reconstitutes at the level of the supraclinoid ICA. Left middle cerebral artery: No occlusion or significant stenosis. No aneurysm. Left anterior cerebral artery: No occlusion or significant stenosis. No aneurysm. POSTERIOR CIRCULATION: Right vertebral artery: No occlusion or significant stenosis. No aneurysm. Left vertebral artery: No occlusion or significant stenosis. No aneurysm. Basilar artery: No occlusion or significant stenosis. No aneurysm. Right posterior cerebral artery: No occlusion or significant stenosis. No aneurysm. Left posterior cerebral artery: No occlusion or significant stenosis. No aneurysm. Brain: No intracranial hemorrhage. There is global parenchymal volume loss. Periventricular white matter hypoattenuation is nonspecific but most likely due to small vessel disease. No evidence of acute territorial infarct or cerebral edema. No mass effect or midline shift. Cerebral ventricles: Prominent ventricles likely secondary to volume loss. Paranasal sinuses: Left-sided paranasal sinus mucosal disease. Bones/joints: Unremarkable. No acute fracture. Soft tissues: Unremarkable. PROCEDURE INFORMATION: Exam: CTA Neck With Contrast Exam date and time: 05/17/2024 3:35 PM Age: 69 years old Clinical indication: Other: Carotid stenosis TECHNIQUE: Imaging protocol: Computed tomographic angiography of the neck with contrast. Exam focused on the cervical segments of the vasculature. 3D rendering (Not supervised by radiologist): MIP and/or 3D reconstructed images were created by the technologist. Radiation optimization: All CT scans at this facility use at least one of these dose optimization techniques: automated exposure control; mA and/or kV adjustment per patient size (includes targeted exams where dose is matched to clinical indication); or iterative reconstruction. Contrast material: OMNI 350; Contrast volume: 100 ml; Contrast route: INTRAVENOUS (IV); COMPARISON: CT angio headne* [id number] 04/12/2023 7:03 AM RADIATION DOSE METRICS: Total DLP (mGy-cm): 1074.42 FINDINGS: Right common carotid artery: No stenosis. No dissection or occlusion. Right internal carotid artery: No stenosis of the extracranial segment. No dissection or occlusion. Right external carotid artery: No occlusion or stenosis of the origin. Left common carotid artery: No stenosis. No dissection or occlusion. Left internal carotid artery: Origin of the left internal carotid artery is stenotic and smoothly narrows to complete occlusion at approximately the C2-C3 level. Left external carotid artery: No occlusion or stenosis of the origin. Right vertebral artery: No stenosis. No dissection or occlusion. Left vertebral artery: No stenosis. No dissection or occlusion. Soft tissues: Normal. No significant soft tissue swelling. Bones/joints: Diffuse degenerative changes in the cervical spine with multifocal lucencies seen visualized bony structures. CT/CT angio [facility]* [id number] IMPRESSION: 1. Left internal carotid artery is occluded intracranially, secondary to occlusion in the neck, and reconstitutes at the level of the supraclinoid ICA. 2. Calcifications throughout right carotid siphon with moderate stenosis proximal to the ophthalmic artery. 3. No acute large vessel occlusion. 4. Attenuation smaller right MCA and ESMER branches, possibly reflecting decreased inflow from right carotid siphon stenosis. IMPRESSION: 1. Origin of the left internal carotid artery is stenotic and smoothly narrows to complete occlusion at approximately the C2-C3 level. 2. Diffuse degenerative changes in the cervical spine with multifocal lucencies seen visualized bony structures. This appearance has not changed in comparison to 04/12/2023. REFERENCES: NASCET CRITERIA. The degree of stenosis in the cervical segment of the internal carotid artery is based on NASCET criteria. Normal is no stenosis. Mild is less than 50% stenosis. Moderate is 50-69% stenosis. Severe is 70% to 99% stenosis. Total occlusion is no detectable patent lumen.
--- NOTE | 2024-05-17 14:57 | P.PN_ITS ---
Subjective 2 Subjective: No events overnight. Patient denies any nausea vomiting, headache. States she is feeling the same as yesterday. Denies any new complaints. She is agreeable for CTA now. Vitals/I&O/Wt Last Vital Signs Temp 98.2 F 05/17/24 12:00 Pulse 76 05/17/24 12:00 Resp 16 05/17/24 12:00 BP 137/82 05/17/24 12:00 Pulse Ox 97 05/17/24 12:00 O2 Del Method Room Air 05/17/24 12:00 Weight last 48 hrs Weight 99.881 kg Weight 101.287 kg Physical Exam 2 Const: COMMON NORMALS: patient oriented x3 and alert GENERAL APPEARANCE: c ooperative ORIENTATION/CONSCIOUSNESS: Yes awake HENMT: COMMON NORMALS: oropharynx normal Neck/C-Spine: COMMON NORMALS: no JVD Resp: COMMON NORMALS: normal respiratory effort and clear to auscultation bilaterally AUSCULTATION: clear to auscultation bilaterally Cardio: COMMON NORMALS: no JVD, regular rhythm, S1 normal heart sound present, S2 normal heart sound present and No murmurs present (Cardio) RHYTHM: regular rhythm HEART SOUNDS: S1 normal heart sound present and S2 normal heart sound present GI: COMMON NORMALS: Normal to inspection, nondistended, normoactive bowel sounds present, Soft to palpation and non-tender PALPATION: Yes Soft to palpation Extremity: COMMON NORMALS: no joint enlargement and no pedal edema Neuro: COMMON NORMALS: patient oriented x3 and moves all extremities S ENSORIUM/ORIENTATION: Yes alert OTHER: She follows directions readily, no difficulty with horizontal tracking. FNF normal, minimally slightly slowed on the right compared to the left. Visual aguilar full to confrontation. No visual extinction. LUE noticeably weaker, able to elevate RUE, with drift, not dropping by end of count. Right lower extremity with minimal drift compared to the left. Sensory exam symmetrical, without sensory extinction. Skin: COMMON NORMALS: no rashes or lesions noted GENERAL SKIN EXAM: no rashes or lesions noted Data 05/17/24 04:05 05/17/24 04:05 A&P Assessment and plan (1) CVA (cerebral vascular accident): Appreciate CT head imaging. Appreciate PT/OT/speech evaluation. Goal blood pressure less than 140/90 MAG. Patient holding off on CTA given concerns with SAMUEL in the past. Wants to discuss further with her outpatient neurosurgeon before going ahead for CTA. Continue with aspirin, statin. Appreciate echocardiogram. Case was discussed by previous hospitalist with patient's outpatient neurosurgeons support team member at [place] and they had recommended patient to be followed up as an outpatient after reviewing images. Patient had endovascular procedure done in [place] by Dr. Kearns (2) UTI (urinary tract infection): History of recurrent UTIs in the past. Appreciate urine culture. Patient has finished 5-day course of IV antibiotics. Will continue cefdinir for 2 more days to finish a 7-day course. CT abdomen pelvis, mild bilateral hydronephrosis, noted nephrolithiasis. Without suggestion of obstructive pyelonephritis at current time. She will need follow-up as discussed with her with urology to determine whether the stents will need to be exchanged sooner given suspected infection. Qualifiers: Hematuria presence: with hematuria Urinary tract infection type: site unspecified Qualified Code(s): N39.0 - Urinary tract infection, site not specified; R31.9 - Hematuria, unspecified (3) Hematuria: Continue to monitor. Plan Goals of care: She has also decided to adjust her CODE STATUS to AND in case of cardiopulmonary arrest. Diabetes: A1c of 9.6. Insulin sliding scale AC ACHS. Continue with glargine 5 units nightly. CKD: Baseline creatinine seems to be around 1.5-1.8. Last checked on 05/11 of 1.4. Repeat CMP. Medical reconciliation done for nephrotoxic drugs. Discharge plan: Plan to discharge to SNF for further rehabilitation. Case management already working on the same. Plan for the day: Creatinine stable at 1.7. Discussed in detail with the patient. She wants to go ahead and get a CTA done. Start on normal saline 50 cc/h for 1 bag. Will get CTA head and neck done today as per request from her outpatient neurosurgeon. Goal blood pressure less than 140/90 mmHg. Blood pressure slightly elevated occasionally. Start on amlodipine 5 mg oral daily. Uptitrate as for goal blood pressure. Appreciate blood sugars. Overall patient required 20 units of Humalog and 5 of Lantus in last 24 hours. Increase dose of Lantus to 10 units nightly. Continue insulin sliding scale. Continue Omnicef with last dose on 02/23. Patient has finished a 7-day course of antibiotics for UTI. Care discussed in detail with patient's daughter on phone at bedside, caregiver and caregiver at bedside. All the questions were answered. PDMP PDMP Reviewed: Not Reviewed Attestations 2 Medical Necessity Statement*: Requires further hospitalization for management of acute CVA, UTI while safe discharge planning is sought. Diagnoses CVA (cerebral vascular accident) I63.9 UTI (urinary tract infection) N39.0; R31.9 Hematuria presence: with hematuria Urinary tract infection type: site unspecified Hematuria R31.9
[2024-05-17] MEDS: iohexol 350 mg/mL 500 mL Btl (per mL) IV (15:46)
[2024-05-17] MEDS: sodium chloride 0.9% 1,000 ML 50 ML IV (16:02)
[2024-05-17 17:15] LABS: Glucose Point of Care 156 mg/dL (70-110)
[2024-05-17 20:26] LABS: Glucose Point of Care 281 mg/dL (70-110)
[2024-05-17] MEDS: atorvastatin 40 mg Tablet PO (20:45)
[2024-05-17] MEDS: insulin glargine 100 units/1 mL 10 UNIT SUBCUT (20:46)
[2024-05-18] VITALS (12 sets, daily range): BP systolic 133–174; BP diastolic 62–79; PULSE 70–91; RESP 17–20; TEMP 36.3–37.1; O2SAT 93–96
[2024-05-18 05:47] LABS: Glucose Point of Care 121 mg/dL (70-110)
[2024-05-18] MEDS: metoprolol succinate ER (24 HR) 25 mg Tablet 12.5 MG PO (09:09)
[2024-05-18] MEDS: amlodipine 10 mg Tablet 5 MG PO (09:11)
[2024-05-18] MEDS: tamsulosin 0.4 mg Capsule PO (09:14)
[2024-05-18] MEDS: aspirin 81 mg EC Tablet PO (09:14)
[2024-05-18] MEDS: clopidogrel 75 mg Tablet PO (11:36)
[2024-05-18 11:42] LABS: Glucose Point of Care 251 mg/dL (70-110)
[2024-05-18] MEDS: insulin lispro 100 unit/1 mL SUBCUT ×3 (12:09→21:04)
--- NOTE | 2024-05-18 12:12 | P.PN_ITS ---
Subjective 2 Subjective: No events overnight. Seen with sister at bedside. Patient is awake and alert. Denies any nausea counting, headache. States her right arm function seems to be slightly remains on room air. Discussed with him that unfortunately insurance is denying placement to SNF for now in rehab bed. I am awaiting for a peer to peer. Will keep them updated. Patient and family is fairly upset about the denial. Vitals/I&O/Wt Last Vital Signs Temp 97.6 F 05/18/24 11:58 Pulse 76 05/18/24 11:58 Resp 17 05/18/24 11:58 BP 171/74 05/18/24 11:58 Pulse Ox 95 05/18/24 11:58 O2 Del Method Room Air 05/18/24 11:58 Weight last 48 hrs Weight 99.926 kg Weight 99.881 kg Physical Exam 2 Narrative: Accompanied by her 1 sisters. Const: COMMON NORMALS: patient oriented x3 and alert GENERAL APPEARANCE: c ooperative ORIENTATION/CONSCIOUSNESS: Yes awake HENMT: COMMON NORMALS: oropharynx normal Neck/C-Spine: COMMON NORMALS: no JVD Resp: COMMON NORMALS: normal respiratory effort and clear to auscultation bilaterally AUSCULTATION: clear to auscultation bilaterally Cardio: COMMON NORMALS: no JVD, regular rhythm, S1 normal heart sound present, S2 normal heart sound present and No murmurs present (Cardio) RHYTHM: regular rhythm HEART SOUNDS: S1 normal heart sound present and S2 normal heart sound present GI: COMMON NORMALS: Normal to inspection, nondistended, normoactive bowel sounds present, Soft to palpation and non-tender PALPATION: Yes Soft to palpation Extremity: COMMON NORMALS: no joint enlargement and no pedal edema Neuro: COMMON NORMALS: patient oriented x3 and moves all extremities S ENSORIUM/ORIENTATION: Yes alert OTHER: She follows directions readily, no difficulty with horizontal tracking. FNF normal, minimally slightly slowed on the right compared to the left. Visual aguilar full to confrontation. No visual extinction. LUE noticeably weaker, able to elevate RUE, with drift, not dropping by end of count. Right lower extremity with minimal drift compared to the left. Sensory exam symmetrical, without sensory extinction. Skin: COMMON NORMALS: no rashes or lesions noted GENERAL SKIN EXAM: no rashes or lesions noted Data 05/17/24 04:05 05/17/24 04:05 A&P Assessment and plan (1) CVA (cerebral vascular accident): Appreciate CT head imaging. Appreciate PT/OT/speech evaluation. Goal blood pressure less than 140/90 MAG. Patient holding off on CTA given concerns with SAMUEL in the past. Wants to discuss further with her outpatient neurosurgeon before going ahead for CTA. Continue with aspirin, statin. Appreciate echocardiogram. 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 Patient had endovascular procedure done in [place] by Dr. Kearns (2) UTI (urinary tract infection): History of recurrent UTIs in the past. Appreciate urine culture. Patient has finished 5-day course of IV antibiotics. Will continue cefdinir for 2 more days to finish a 7-day course. CT abdomen pelvis, mild bilateral hydronephrosis, noted nephrolithiasis. Without suggestion of obstructive pyelonephritis at current time. She will need follow-up as discussed with her with urology to determine whether the stents will need to be exchanged sooner given suspected infection. Qualifiers: Hematuria presence: with hematuria Urinary tract infection type: site unspecified Qualified Code(s): N39.0 - Urinary tract infection, site not specified; R31.9 - Hematuria, unspecified (3) Hematuria: Continue to monitor. Plan Goals of care: She has also decided to adjust her CODE STATUS to AND in case of cardiopulmonary arrest. Diabetes: A1c of 9.6. Insulin sliding scale AC ACHS. Continue with glargine 5 units nightly. CKD: Baseline creatinine seems to be around 1.5-1.8. Last checked on 05/11 of 1.4. Repeat CMP. Medical reconciliation done for nephrotoxic drugs. Discharge plan: Plan to discharge to SNF for further rehabilitation. Case management already working on the same. Plan for the day: Continue with IV fluids for 24 hours. Monitor CBC and CMP in AM. Goal blood pressure less than 140/90 mmHg. Start on amlodipine 5 mg oral daily. Uptitrate as for goal blood pressure. Appreciate CT results. Start on Plavix 75 mg daily along with baby aspirin. Blood sugar stable. Continue with Lantus 10 units nightly, insulin sliding scale. Case management alerted. Completed peer to peer. Unfortunately patient has been declined placement to SNF as per the medical insurance claims processor. Care discussed in detail with patient's daughter on phone at bedside, caregiver and caregiver at bedside. All the questions were answered. PDMP PDMP Reviewed: Not Reviewed Attestations 2 Medical Necessity Statement*: Patient requested hospitalization for management of poststroke while safe discharge planning is sought Diagnoses CVA (cerebral vascular accident) I63.9 UTI (urinary tract infection) N39.0; R31.9 Hematuria presence: with hematuria Urinary tract infection type: site unspecified Hematuria R31.9
--- NOTE | 2024-05-18 13:52 | PC.SOCIAL ---
IMM Update pg 2 of IMM Updated and reviewed w/ patient. Copy provided and copy dated, initialed and placed in chart.
[2024-05-18 15:53] LABS: Glucose Point of Care 199 mg/dL (70-110)
[2024-05-18 20:18] LABS: Glucose Point of Care 270 mg/dL (70-110)
[2024-05-18] MEDS: insulin glargine 100 units/1 mL 10 UNIT SUBCUT (21:04)
[2024-05-18] MEDS: atorvastatin 40 mg Tablet PO (21:05)
[2024-05-19] VITALS (8 sets, daily range): BP systolic 130–155; BP diastolic 65–79; PULSE 66–82; RESP 16–19; TEMP 36.4–36.7; O2SAT 94–98; BMI 38.9
[2024-05-19 04:51] LABS: Basophils % 0.2 %; Eosinophils % 0.2 %; Hematocrit 33.2 % (36-47); Lymphocytes # 2.8 10^3/uL (0.8-4.8); Mean Corpuscular HGB Conc 28.9 g/dL (30-55); Mean Corpuscular Hemoglobin 27.4 pg (27-33); Mean Corpuscular Volume 94.9 fl (85-98); Mean Platelet Volume 11.2 fL (7.4-10.4); Monocytes # 1.3 10^3/uL (0.2-0.9); Monocytes % 22.9 %; Neutrophils # 1.53 10^3/uL (1.8-7.7); Neutrophils % 27.2 %; Nucleated Red Blood Cells % 0 %; Platelet Count 118 10^3/cmm (157-399); Red Cell Distribution Width 14.7 % (12.1-15.1); White Blood Count 5.63 10^3/uL (3.29-11.43)
[2024-05-19 05:08] LABS: Alanine Aminotransferase 6 U/L (0-33); Alkaline Phosphatase 115 U/L (35-105); Anion Gap 14.7 (5-19); Aspartate Amino Transferase 10 U/L (0-32); Blood Urea Nitrogen 15 mg/dL (8-23); Calcium 8.4 mg/dL (8.5-10.5); Carbon Dioxide 21 mmol/L (22-29); Chloride 110 mmol/L (98-107); Creatinine Clr Calc Pharmacy 41.5498; Globulin 3.4 g/dL (1.3-4.6); Glucose 103 mg/dL (65-115); Osmolality Calculated 295 mOsm/kg (285-295); Potassium 3.7 mmol/L (3.5-5.1); Sodium 142 mmol/L (136-145); Total Bilirubin 0.3 mg/dL (0.15-1.2); Total Protein 6.4 g/dL (6.6-8.7)
[2024-05-19 05:47] LABS: Glucose Point of Care 122 mg/dL (70-110)
[2024-05-19] MEDS: clopidogrel 75 mg Tablet PO (09:01)
[2024-05-19] MEDS: amlodipine 10 mg Tablet 5 MG PO ×2 (09:02→17:44)
[2024-05-19] MEDS: tamsulosin 0.4 mg Capsule PO (09:03)
[2024-05-19] MEDS: aspirin 81 mg EC Tablet PO (09:03)
[2024-05-19] MEDS: metoprolol succinate ER (24 HR) 25 mg Tablet 12.5 MG PO (09:03)
[2024-05-19 11:21] LABS: Glucose Point of Care 280 mg/dL (70-110)
[2024-05-19] MEDS: insulin lispro 100 unit/1 mL SUBCUT ×3 (12:30→21:47)
--- NOTE | 2024-05-19 12:44 | PM.PN ---
Subjective Subjective: Patient seen and evaluated. Her daughter in [facility] joints assessment via video chat. Patient endorses severe weakness and debility. She states that she is unable to get out of bed and use a walker on her own. She states that once she has assistance to use the walker and is up walking she can walk quite a distance. Seems like she is walks around 200 feet with therapy once she gets going. Patient and family are upset regarding the insurance letter. They state that there is no discussion about the patient's inability to get out of bed and up to the walker on her own. States the patient's cannot do this and is not appropriate to discharge home. This is a change in her functional status. They request the documentation be addressed. They would like to talk to the patient navigator at the hospital. They are reviewing appeal forms currently. Patient otherwise endorses generalized weakness. Reports she slept okay until 4 AM. Denies fevers or chills. Reports appetite is okay, but is getting tired of cheese sandwiches and tomato soup. Medications: Reviewed: Yes Vitals/I&O/Wt Last Vital Signs Temp 98.1 F 05/19/24 11:07 Pulse 74 05/19/24 11:07 Resp 17 05/19/24 11:07 BP 152/79 05/19/24 11:07 Pulse Ox 97 05/19/24 11:07 O2 Del Method Room Air 05/19/24 11:07 Weight last 48 hrs Weight 99.904 kg Weight 99.926 kg Physical Exam Narrative: General: Patient is awake. Head: Facial asymmetry noted. Neck: No JVD. Cardiovascular: RRR. No gallops. No murmurs. Lungs: Clear to auscultation, no use of accessory muscles, no crackles or wheezes. Skin: No jaundice. No rashes. Abdomen: Normal bowel sounds, abdomen soft and nontender. Extremities: No cyanosis or clubbing. Musculoskeletal: No swollen or erythematous joints. Neurological: Moves all 4 extremities. No myoclonus. Data 05/19/24 04:26 05/19/24 04:26 A&P Assessment and plan (1) CVA (cerebral vascular accident): Imaging reviewed Continue DAPT with aspirin and Plavix Continue intensity statin Optimize glycemic control Optimize blood pressure Chart reviewed, patient/family reports inaccuracy in her therapy assessment, discussed with medical team, we will obtain new assessment. Whether primary issue was with the documentation regarding patient's functional status getting from bed or chair to the rolling walker. They also note the patient requires assistance to place her right hand onto the walker and it must be strapped to it. They also report the patient is unable to get up to the walker on her own. They note the insurance denial level notes that patient walked 200 feet with a rolling walker but does not address any of these issues. They do not feel like the patient is appropriate to be going home given her change in functional status. They have asked to talk to the patient advocate for which I have passed that request along. Family is reviewing the appeal forms currently. (2) Carotid stenosis: Imaging reviewed Prior hospitalist reportedly discussed case with her neurosurgery team She will have outpatient follow-up (3) Hypertension: Increase Norvasc dose Continue metoprolol Monitor blood pressures (4) Diabetes: Continue Lantus Continue sliding scale correction Avoid hypoglycemia (5) Chronic kidney disease: Renal function at baseline Plan DVT prophylaxis: Lovenox PDMP PDMP Reviewed: Not Reviewed Attestations Medical Necessity Statement*: Patient requires ongoing hospitalization due to concern for her ability to care for self at home for which repeat therapy evaluation will be conducted, ongoing blood pressure titration, and supportive care. Coding Level of Care Code Acute Code for [facility] Fwd Diagnoses CVA (cerebral vascular accident) I63.9 Carotid stenosis I65.29 Hypertension I10 Diabetes E11.9 Chronic kidney disease N18.9
[2024-05-19 16:04] LABS: Glucose Point of Care 146 mg/dL (70-110)
--- NOTE | 2024-05-19 16:56 | PC.NURSE ---
Addendum entered by Gallo Tran RN 05/19/24 16:57: Shift Summary: Uneventful shift. Was up to a chair for about half of the day. Worked with physical therapy. Patient advocate Joanna Mcgrath met with patient today to assist with appeals process. 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 Original Note: Shift Summary: Uneventful shift. Was up to a chair for about half of the day. Worked with physical therapy. Patient advocate joanna Mcgrath met with patient today to assist with appeals process.
[2024-05-19 21:00] LABS: Glucose Point of Care 254 mg/dL (70-110)
[2024-05-19] MEDS: enoxaparin 40 mg/0.4 mL Syringe SUBCUT (21:46)
[2024-05-19] MEDS: atorvastatin 40 mg Tablet PO (21:46)
[2024-05-19] MEDS: insulin glargine 100 units/1 mL 10 UNIT SUBCUT (21:49)
[2024-05-20] VITALS (7 sets, daily range): BP systolic 127–164; BP diastolic 55–80; PULSE 68–95; RESP 16–19; TEMP 36.4–36.8; O2SAT 93–98
[2024-05-20] MEDS: hyDRALAzine 10 mg Tablet PO ×2 (09:46→17:37)
[2024-05-20] MEDS: tamsulosin 0.4 mg Capsule PO (09:46)
[2024-05-20] MEDS: aspirin 81 mg EC Tablet PO (09:46)
[2024-05-20] MEDS: metoprolol succinate ER (24 HR) 25 mg Tablet 12.5 MG PO (09:46)
[2024-05-20] MEDS: amlodipine 10 mg Tablet 5 MG PO ×2 (09:46→17:37)
[2024-05-20] MEDS: clopidogrel 75 mg Tablet PO (09:46)
--- NOTE | 2024-05-20 11:17 | P.PN_ITS ---
Subjective 2 Subjective: Patient reports she feels okay today. Denies new complaints. Notes ongoing difficulties caring for self. Discussed blood pressure remains elevated for which new antihypertensive will be added today. An appeal process has reportedly been started. Medications: Reviewed: Yes Vitals/I&O/Wt Last Vital Signs Temp 97.5 F L 05/20/24 08:00 Pulse 68 05/20/24 09:25 Resp 18 05/20/24 09:25 BP 151/67 05/20/24 08:00 Pulse Ox 93 05/20/24 09:25 O2 Del Method Room Air 05/20/24 09:25 Weight last 48 hrs Weight 99.972 kg Weight 99.904 kg Physical Exam 2 Narrative: General: Patient is awake. Alert. In bedside chair. Head: Facial asymmetry noted. Neck: No JVD. Cardiovascular: RRR. No gallops. No murmurs. Lungs: Clear to auscultation, no use of accessory muscles, no crackles or wheezes. Skin: No jaundice. No rashes. Abdomen: Normal bowel sounds, abdomen soft and nontender. Extremities: No cyanosis or clubbing. Musculoskeletal: No swollen or erythematous joints. Neurological: Moves all 4 extremities. No myoclonus. Data 05/19/24 04:26 05/19/24 04:26 A&P Assessment and plan (1) CVA (cerebral vascular accident): Continue DAPT with aspirin and Plavix Continue intensity statin Optimize glycemic control Optimize blood pressure, will add on hydralazine today Her main deficits really seem to be occupational in nature, this is a change in her functional status An appeal has been made to her insurance regarding rehab; this is currently pending (2) Carotid stenosis: Prior hospitalist reportedly discussed case with her neurosurgery team She will have outpatient follow-up (3) Hypertension: Continue Norvasc Start low-dose hydralazine Continue metoprolol Monitor blood pressures (4) Diabetes: Continue Lantus Continue sliding scale correction Avoid hypoglycemia (5) Chronic kidney disease: Renal function at baseline Plan DVT prophylaxis: Lovenox PDMP PDMP Reviewed: Not Reviewed Attestations 2 Medical Necessity Statement*: Patient requires ongoing hospitalization due to concern for her ability to care for self, insurance appeal follow-up, ongoing blood pressure titration, and supportive care. Coding Level of Care Code Acute Code for [facility] Fwd Diagnoses CVA (cerebral vascular accident) I63.9 Carotid stenosis I65.29 Hypertension I10 Diabetes E11.9 Chronic kidney disease N18.9
[2024-05-20 11:29] LABS: Glucose Point of Care 273 mg/dL (70-110)
[2024-05-20] MEDS: insulin lispro 100 unit/1 mL SUBCUT ×3 (12:14→20:55)
--- NOTE | 2024-05-20 13:21 | PC.SOCIAL ---
IMM Update pg 2 of IMM updated and reviewed w/patient. Copy provided and copy dated, initialed and placed in chart.
[2024-05-20 17:17] LABS: Glucose Point of Care 192 mg/dL (70-110)
[2024-05-20 20:26] LABS: Glucose Point of Care 252 mg/dL (70-110)
[2024-05-20] MEDS: atorvastatin 40 mg Tablet PO (20:56)
[2024-05-20] MEDS: enoxaparin 40 mg/0.4 mL Syringe SUBCUT (20:56)
[2024-05-20] MEDS: insulin glargine 100 units/1 mL 10 UNIT SUBCUT (20:56)
[2024-05-21 04:30] VITALS: BP 158/78; PULSE 72; RESP 18; TEMP 36.4; O2SAT 99
[2024-05-21 06:35] LABS: Glucose Point of Care 165 mg/dL (70-110)
[2024-05-21 08:00] VITALS: BP 149/75; PULSE 81; RESP 17; TEMP 36.4; O2SAT 95
[2024-05-21] MEDS: metoprolol succinate ER (24 HR) 25 mg Tablet 12.5 MG PO (08:00)
[2024-05-21] MEDS: aspirin 81 mg EC Tablet PO (08:00)
[2024-05-21] MEDS: amlodipine 10 mg Tablet 5 MG PO (08:00)
[2024-05-21] MEDS: tamsulosin 0.4 mg Capsule PO (08:00)
[2024-05-21] MEDS: insulin lispro 100 unit/1 mL SUBCUT ×2 (08:01→11:54)
[2024-05-21] MEDS: clopidogrel 75 mg Tablet PO (08:01)
[2024-05-21] MEDS: hyDRALAzine 10 mg Tablet PO (08:01)
--- NOTE | 2024-05-21 09:24 | CT_ITS ---
WS: [id number] CT ABDOMEN PELVIS TECHNIQUE: Noncontrast CT of the abdomen and pelvis with coronal and sagittal reformatted images. CLINICAL INFORMATION: Eval for diverticulitis COMPARISON: CT 05/11/2024 DLP: 1223.[address] scans at [facility] use at least one of these dose optimization techniques: automated exposure control; mA and/or kV adjustment per patient size (includes targeted exams where dose is matched to clinical indication); or iterative reconstruction. FINDINGS: Bilateral double-J ureteral stents in place. Dilated RIGHT renal pelvis with multiple calculi unchanged compared to the prior study. Mild bilateral hydronephrosis is unchanged. No progression.Cholecystectomy clips. No evidence of acute diverticulitis. No evidence of small or large bowel obstruction. Bibasilar atelectasis with a few hazy opacities in the lung bases similar to previous. Small esophageal hiatal hernia with air-fluid level. Adrenal glands are normal. Normal noncontrast spleen. Prominent mesenteric and clustered lymph nodes in the RIGHT central mesentery with soft tissue induration similar in appearance over multiple prior studies. Normal caliber abdominal aorta. Mild vascular calcification. No other significant changes compared to previous. CT/CT abdomen pelvis wo con [id number] IMPRESSION: 1. No evidence of acute diverticulitis. 2. Prior hysterectomy. 3. Stable bilateral double-J ureteral stents. 4. Stable prominent lymph nodes in the RIGHT central mesentery with surroundin g induration unchanged over multiple prior studies. 5. Small esophageal hiatal hernia with air-fluid level.
[2024-05-21 10:58] LABS: Basophils % 0.2 %; Eosinophils % 0.2 %; Hematocrit 33.2 % (36-47); Lymphocytes # 2.3 10^3/uL (0.8-4.8); Lymphocytes % 40.8 %; Mean Corpuscular HGB Conc 30.4 g/dL (30-55); Mean Corpuscular Hemoglobin 27.8 pg (27-33); Mean Corpuscular Volume 91.5 fl (85-98); Mean Platelet Volume 11.2 fL (7.4-10.4); Monocytes # 1.3 10^3/uL (0.2-0.9); Monocytes % 23.3 %; Neutrophils # 1.95 10^3/uL (1.8-7.7); Neutrophils % 35.1 %; Nucleated Red Blood Cells % 0 %; Platelet Count 133 10^3/cmm (157-399); Red Blood Count 3.63 10^6/uL (3.85-5.65); White Blood Count 5.54 10^3/uL (3.29-11.43)
[2024-05-21 11:11] LABS: Glucose Point of Care 239 mg/dL (70-110)
[2024-05-21 11:14] LABS: Albumin Level 3.3 g/dL (3.5-5.2); Anion Gap 14.2 (5-19); Blood Urea Nitrogen 16 mg/dL (8-23); Calcium 8.4 mg/dL (8.5-10.5); Carbon Dioxide 22 mmol/L (22-29); Chloride 107 mmol/L (98-107); Creatinine Clr Calc Pharmacy 44.6893; Glucose 237 mg/dL (65-115); Phosphorus 3.5 mg/dL (2.5-4.5); Potassium 4.2 mmol/L (3.5-5.1); Sodium 139 mmol/L (136-145)
[2024-05-21 11:42] VITALS: BP 152/80; PULSE 73; RESP 18; TEMP 36.7; O2SAT 100
--- NOTE | 2024-05-21 12:38 | PM.DCS ---
Discharge Providers Date of Admission: 05/11/24 11:30 Date of Discharge: May 21, 2024 Attending Provider at Admission: Petey Obregon Attending Provider at Discharge: Darrel Valenzuela MD Primary Care Provider: Celia Louis MD Diagnoses at Discharge Discharge Diagnosis (1) CVA (cerebral vascular accident): Status: Acute (2) Carotid stenosis: Status: Acute (3) Hypertension: Status: Acute (4) Diabetes: Status: Acute (5) Chronic kidney disease: Status: Chronic Reason for Visit Reason for Visit: Stroke Alert Hospital Course Hospital Course Macey Brush is a 69-year-old female with a past medical history significant for stroke with residual right-sided weakness in extremities and right-sided facial droop, intracranial arterial stenosis requiring intervention and multiple other comorbidities who presented with strokelike symptoms. Head CT was negative for acute evidence of intracranial hemorrhage. Head and neck CTA showed left internal carotid artery occlusion intracranially secondary to occlusion in the neck with reconstitution at the level of the supraclinoid ICA. She was treated with dual antiplatelet therapy and then continued on statin. Admitting hospitalist discussed case with her neurosurgical team which found the patient did not need inpatient transfer. They recommended outpatient follow-up. She worked with physical and Occupational Therapy. She was noted to have occupational therapy needs with difficulty and some ADLs. Multiple attempts were made to try to get her insurance cover postacute rehabilitation for occupational therapy. Unfortunately, her insurance persistently declined despite multiple attempts. Patient ultimately chose to go home. Her daughter is to [place] hopefully to assist her at home. She will follow-up with her outpatient neurosurgical team to see if that she is a candidate for any further interventions from their end. She is to see her primary care physician within 1 week for ongoing care as well. She was found to have acute complicated urinary tract infection with urine culture not revealing culprit organism. She was treated with IV and transition to p.o. antibiotics. She is to follow-up with their urologist as outpatient for ongoing evaluation. Physical Exam Narrative: General: Patient is awake. Alert. No acute distress. Conversational. Head: Facial asymmetry noted, unchanged from prior exam. Neck: No JVD. Cardiovascular: RRR. No gallops. No murmurs. Lungs: Clear to auscultation, no use of accessory muscles, no crackles or wheezes. Skin: No jaundice. No rashes. Abdomen: Normal bowel sounds, abdomen soft and nontender. Extremities: No cyanosis or clubbing. Musculoskeletal: No swollen or erythematous joints. Neurological: Moves all 4 extremities. No myoclonus. Discharge Data Studies Completed and Pending Completed Studies During Hospitalization Category Date Time Status CT abdomen pelvis wo con [id number] Routine Cat Scan 05/21/24 09:[address] angio head neck [CT angio headneck* [id number]] Cat Scan 05/17/24 13:[address] head thrombolytic [id number] Stat Cat Scan 05/11/24 07:[address] head wo con* [id number] Routine Cat Scan 05/13/24 09:[address] kidney stone [id number] Routine Cat Scan 05/11/24 16:09 Completed CV. echo lmt wo/w bubble [id number] Routine Ultrasound 05/11/24 16:12 Completed US carotid duplex bilateral [CV carotid duplex BI* Ultrasound 05/11/24 16:24 Completed [id number]] Routine Radiology Impressions Carotid Doppler Study 05/11/24 16:24 IMPRESSION: 1. Findings are concerning for significant left internal carotid artery narrowing/stenosis approaching near-total occlusion. Recommend CTA for further assessment. 2. Distal common carotid artery demonstrates significant narrowing/stenosis. Attention on follow-up recommended CTA. REFERENCES: SRU CRITERIA. The degree of internal carotid artery stenosis is based on criteria defined by the Society of Radiologists in Ultrasound (SRU). Normal is no stenosis. Mild is less than 50% stenosis. Moderate is 50-69% stenosis. Severe is greater than 69% stenosis to near occlusion. Near occlusion is a markedly narrowed lumen. Total occlusion is no detectable patent lumen. Head CT 05/13/24 09:52 IMPRESSION: 1. No evidence of intracranial hemorrhage or mass effect. 2. Mild small vessel changes. Mild parenchymal volume loss. 3. Small amount of patchy low-attenuation change in LEFT frontal parietal white matter may be due to subacute ischemia versus small vessel changes. This can be followed up with MRI if indicated. 4. No other suspicious findings. Head/Neck CTA 05/17/24 13:50 IMPRESSION: 1. Left internal carotid artery is occluded intracranially, secondary to occlusion in the neck, and reconstitutes at the level of the supraclinoid ICA. 2. Calcifications throughout right carotid siphon with moderate stenosis proximal to the ophthalmic artery. 3. No acute large vessel occlusion. 4. Attenuation smaller right MCA and ESMER branches, possibly reflecting decreased inflow from right carotid siphon stenosis. IMPRESSION: 1. Origin of the left internal carotid artery is stenotic and smoothly narrows to complete occlusion at approximately the C2-C3 level. 2. Diffuse degenerative changes in the cervical spine with multifocal lucencies seen visualized bony structures. This appearance has not changed in comparison to 04/12/2023. REFERENCES: NASCET CRITERIA. The degree of stenosis in the cervical segment of the internal carotid artery is based on NASCET criteria. Normal is no stenosis. Mild is less than 50% stenosis. Moderate is 50-69% stenosis. Severe is 70% to 99% stenosis. Total occlusion is no detectable patent lumen. ADDENDUM: 05/17/24 1618 THIS REPORT CONTAINS FINDINGS THAT MAY BE CRITICAL TO PATIENT CARE. The findings were verbally communicated via telephone conference with KIMBERLY DENIS at 4:16 PM FAB[employer]ICATION DEPARTMENT SUPERVISOR on 05/17/2024. The findings were acknowledged and understood. Abdomen/Pelvis CT 05/21/24 09:24 IMPRESSION: 1. No evidence of acute diverticulitis. 2. Prior hysterectomy. 3. Stable bilateral double-J ureteral stents. 4. Stable prominent lymph nodes in the RIGHT central mesentery with surrounding induration unchanged over multiple prior studies. 5. Small esophageal hiatal hernia with air-fluid level. Laboratory Results WBC 5.54 10^3/uL (3.29-11.43) 05/21/24 10:48 RBC 3.63 10^6/uL (3.85-5.65) L 05/21/24 10:48 Hgb 10.10 g/dL (11.27-16.99) L 05/21/24 10:48 Hct 33.2 % (36-47) L 05/21/24 10:48 MCV 91.5 fl (85-98) 05/21/24 10:48 MCH 27.8 pg (27-33) 05/21/24 10:48 MCHC 30.4 g/dL (30-55) 05/21/24 10:48 RDW 15.0 % (12.1-15.1) 05/21/24 10:48 Plt Count 133 10^3/cmm (157-399) L 05/21/24 10:48 MPV 11.2 fL (7.4-10.4) H 05/21/24 10:48 Neut % (Auto) 35.1 % 05/21/24 10:48 Lymph % (Auto) 40.8 % 05/21/24 10:48 [place]ord % (Auto) 23.3 % 05/21/24 10:48 Eos % (Auto) 0.2 % 05/21/24 10:48 Baso % (Auto) 0.2 % 05/21/24 10:48 Neut # (Auto) 1.95 10^3/uL (1.8-7.7) 05/21/24 10:48 Lymph # (Auto) 2.3 10^3/uL (0.8-4.8) 05/21/24 10:48 [place]ackelford # (Auto) 1.3 10^3/uL (0.2-0.9) H 05/21/24 10:48 Eos # (Auto) 0.0 10^3/uL (0.0-0.8) 05/21/24 10:48 Baso # (Auto) 0.0 10^3/uL (0.0-0.1) 05/21/24 10:48 Nucleated RBC % (auto) 0 % 05/21/24 10:48 Nucleated RBCs # 0.0 /100WBC 05/21/24 10:48 PT 12.70 SECONDS (12.1-14.9) 05/11/24 08:31 INR 0.89 (0.8-1.2) 05/11/24 08:31 APTT 26.5 SECONDS (23.9-36.7) 05/11/24 08:31 Sodium 139 mmol/L (136-145) 05/21/24 10:48 Potassium 4.2 mmol/L (3.5-5.1) 05/21/24 10:48 Chloride 107 mmol/L (98-107) 05/21/24 10:48 Carbon Dioxide 22 mmol/L (22-29) 05/21/24 10:48 Anion Gap 14.2 (5-19) 05/21/24 10:48 BUN 16 mg/dL (8-23) 05/21/24 10:48 Creatinine 1.3 mg/dL (0.5-0.9) H 05/21/24 10:48 GFR Calculation Not Reportable 05/21/24 10:48 Glucose 237 mg/dL (65-115) H 05/21/24 10:48 POC Glucose 239 mg/dL (70-110) H 05/21/24 10:57 Estimat Average Glucose 229 05/12/24 04:33 Hemoglobin A1c 9.6 % (4.0-6.0) H 05/12/24 04:33 Calculated Osmolality 295 mOsm/kg (285-295) 05/19/24 04:26 Calcium 8.4 mg/dL (8.5-10.5) L 05/21/24 10:48 Phosphorus 3.5 mg/dL (2.5-4.5) 05/21/24 10:48 Magnesium 2.0 mg/dL (1.7-2.3) 05/17/24 04:05 Total Bilirubin 0.3 mg/dL (0.15-1.2) 05/19/24 04:26 AST 10 U/L (0-32) 05/19/24 04:26 ALT 6 U/L (0-33) 05/19/24 04:26 Alkaline Phosphatase 115 U/L (35-105) H 05/19/24 04:26 Total Protein 6.4 g/dL (6.6-8.7) L 05/19/24 04:26 Albumin 3.3 g/dL (3.5-5.2) L 05/21/24 10:48 Globulin 3.4 g/dL (1.3-4.6) 05/19/24 04:26 Triglycerides 81 mg/dL (0-150) 05/12/24 04:33 Cholesterol 108 mg/dL (0-200) 05/12/24 04:33 LDL Cholesterol, Calc 47 mg/dL (50-129) L 05/12/24 04:33 HDL Cholesterol 45 mg/dL (60-100) L 05/12/24 04:33 LDL/HDL Ratio 1.04 RATIO (0.00-3.22) 05/12/24 04:33 Cholesterol/HDL Ratio 2.40 mg/dL (0.0-4.40) 05/12/24 04:33 TSH 4.14 uIU/mL (0.27-4.20) 05/16/24 14:24 Urine Color Yellow (Yellow) 05/11/24 10:32 Urine Appearance Turbid (CLEAR) A 05/11/24 10:32 Urine pH 7.5 (5-7) 05/11/24 10:32 Ur Specific [place] 1.014 (1.005-1.030) 05/11/24 10:32 Urine Protein 2+ (Negative) A 05/11/24 10:32 Urine Glucose (UA) Negative (Normal) 05/11/24 10:32 Urine Ketones Negative (Negative) 05/11/24 10:32 Urine Blood 2+ (Negative) A 05/11/24 10:32 Urine Nitrate Positive (Negative) A 05/11/24 10:32 Urine Bilirubin Negative (Negative) 05/11/24 10:32 Urine Urobilinogen 0.2 mg/dL (Negative) 05/11/24 10:32 Ur Leukocyte Esterase 3+ (Negative) A 05/11/24 10:32 Urine RBC 51-100 /hpf (0-2) H 05/11/24 10:32 Urine WBC >100 /hpf (0-5) H 05/11/24 10:32 Ur Squamous Epith Cells 0-5 /hpf (0-5) 05/11/24 10:32 Amorphous Sediment Not Reportable 05/11/24 10:32 Urine Bacteria 2+ /hpf (NONE) H 05/11/24 10:32 Hyaline Casts 5.33 /lpf 05/11/24 10:32 Urine Opiates Screen Negative ng/mL (Negative) 05/11/24 10:32 Ur Barbiturates Screen Negative ng/mL (Negative) 05/11/24 10:32 Ur Phencyclidine Scrn Negative ng/mL (Negative) 05/11/24 10:32 Ur Amphetamines Screen Negative ng/mL (Negative) 05/11/24 10:32 U Benzodiazepines Scrn Negative ng/mL (Negative) 05/11/24 10:32 Urine Cocaine Screen Negative ng/mL (Negative) 05/11/24 10:32 U Marijuana (THC) Screen Negative ng/mL (Negative) 05/11/24 10:32 Vitals Last Vital Signs Temp 98.1 F 05/21/24 11:42 Pulse 73 05/21/24 11:42 Resp 18 05/21/24 11:42 BP 152/80 05/21/24 11:42 Pulse Ox 100 05/21/24 11:42 O2 Del Method Room Air 05/21/24 11:42 Discharge Plan Discharge Patient Disposition: Home Health Service Condition: Stable Prescriptions: New clopidogrel 75 mg Tablet 75 mg PO DAILY 30 Days Qty: 30 0RF Continued glyburide 2.5 mg tablet 2.5 mg PO BID metoprolol succinate 50 mg tablet extended release 24 hr 50 mg PO DAILY tamsulosin 0.4 mg capsule 0.4 mg PO DAILY albuterol sulfate [Ventolin HFA] 90 mcg/actuation HFA aerosol inhaler 2 puff inhalation Q6H PRN (Reason: shortness of breath or wheezing) Qty: 8.5 3RF (DME) Diabetic shoes and 3 pairs of inserts See Rx Instructions .Route .MEDSUPPLY Qty: 1 0RF Rx Instructions: As directed HOME atorvastatin 40 mg Tablet 40 mg PO BEDTIME Qty: 30 0RF aspirin [Adult Aspirin Regimen] 81 mg tablet,delayed release (DR/EC) 81 mg PO DAILY Qty: 30 0RF lisinopril 20 mg tablet 20 mg PO DAILY ergocalciferol (vitamin D2) 1,250 mcg (50,000 unit) capsule 1,250 mcg PO Q7D Discharge Orders: Discharge Order (Routine); Ordered 05/21/24 Ordered By: Darrel Valenzuela Other Ambulatory Orders: DME: Walker (Order) Location: None Selected Ordered By: Darrel Valenzuela Referrals: [facility] [Outside] Celia Louis MD [Primary Care Provider] - 05/28/24 10:15 am Discharge Diet: Advance as tolerated and Usual diet Discharge Activity: Increase activity as tolerated Patient Instructions: Clopidogrel (By mouth), Hypertension (DC), Stroke (DC), Stroke Stoplight Activity Restrictions/Additional Instructions: 1. Take medications as prescribed. 2. PCP follow up within one week. 3. No driving or operating machinery until cleared by your PCP. 4. Follow up with your neurosurgery team. 5. Follow-up with your urologist. Discharge Attestations Time Spent in Discharge Care*: greater than 30 min Status at Discharge: Cognitive status at discharge: cognitively intact, Behavioral status at discharge: cooperative, Quality Metrics Clinical Quality Measures [ No reported AMI, CVA or VTE this stay] Coding Level of Care Code Acute Code for Chg Fwd Diagnoses CVA (cerebral vascular accident) I63.9 Carotid stenosis I65.29 Hypertension I10 Diabetes E11.9 Chronic kidney disease N18.9
[2024-05-21 14:08] VITALS: BP 150/82; PULSE 74; O2SAT 99
== END 2024-05-21 14:10 | disposition home health service (06) | DRG 65 ==
LOC: ER 11:03 → MEDSURG 15:23 → ER IP 05-12 11:16
PROVIDERS: Student in an Organized Health Care Education/Training Program; Admitting Provider Internal Medicine; Emergency Provider Family Medicine; PCP Family Medicine; Visit Provider Internal Medicine
DX: I63.232 Cerebral infarction due to unspecified occlusion or stenosis of left carotid arteries (principal); I69.951 Hemiplegia and hemiparesis following unspecified cerebrovascular disease affecting right dominant side; N39.0 Urinary tract infection, site not specified; N13.30 Unspecified hydronephrosis; E11.22 Type 2 diabetes mellitus with diabetic chronic kidney disease; I12.9 Hypertensive chronic kidney disease with stage 1 through stage 4 chronic kidney disease, or unspecified chronic kidney disease; N18.9 Chronic kidney disease, unspecified; I69.992 Facial weakness following unspecified cerebrovascular disease; Z79.02 Long term (current) use of antithrombotics/antiplatelets; R31.9 Hematuria, unspecified; Z90.710 Acquired absence of both cervix and uterus; Z87.440 Personal history of urinary (tract) infections; D63.1 Anemia in chronic kidney disease; Z85.828 Personal history of other malignant neoplasm of skin; Z86.16 Personal history of COVID-19
CPT/HCPCS: 36415; 36416; 70450; 70496; 70498; 74176; 80053; 80061; 80069; 80306; 81001; 82962; 83036; 83735; 84443; 85025; 85610; 85730; 87086; 92507; 92523; 92526; 92610; 93005; 93880; 96372; 97110; 97116; 97161; 97167; 97530; 97535; 99285; A9281; C8924; J0692; J0696; J1650; J1815; J7030; J7040

== ENCOUNTER 2024-06-27 09:36 | Emergency (ER) | payer MEDICARE, SELFPAY ==
[2024-06-27 09:37] VITALS: BP 166/72; PULSE 70; RESP 16; TEMP 36.7; O2SAT 97; BMI 39.6
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
== END 2024-06-27 13:18 | disposition home or self-care (01) ==
PROVIDERS: Emergency Provider Emergency Medicine; PCP Family Medicine
DX: S31.811A Laceration without foreign body of right buttock, initial encounter (principal); W18.2XXA Fall in (into) shower or empty bathtub, initial encounter; Z79.82 Long term (current) use of aspirin; Z87.891 Personal history of nicotine dependence; Z85.42 Personal history of malignant neoplasm of other parts of uterus; E11.22 Type 2 diabetes mellitus with diabetic chronic kidney disease; I12.9 Hypertensive chronic kidney disease with stage 1 through stage 4 chronic kidney disease, or unspecified chronic kidney disease; N18.9 Chronic kidney disease, unspecified; Z85.828 Personal history of other malignant neoplasm of skin
CPT/HCPCS: 99282

== ENCOUNTER 2024-09-20 05:02 | Inpatient (IN) | payer MEDICARE, SELFPAY ==
--- OUTSIDE RECORDS SUMMARY | 2003-03-24 19:00 | XMS_ITS | Continuity of Care Document ---
Author Name [facility] Address [address] [place] [address] Organization [facility] Care Team Providers Care Senior Program Manager Name Role Phone [facility] Unavailable Problems Problem Status Onset Date Problem Type Date of Resolution Comments Source Diabetes mellitus (disorder) Active Condition Added by discern rule CLIN_UH_PROB_D IABETES from a nursing choronic problems assessment Powerform. Generalized osteoarthritis (disorder) Active Condition Added by discern rule CLIN_UH_PROB_A RTHRITIS from a nursing choronic problems assessment Powerform. OTH Active Condition Anemia, Unspecified Active Diagnosis Benign Neoplasm of Stomach Active Diagnosis Iron Deficiency Anemia, Unspecified Active Diagnosis Nodular Lymphoma, Unspecified Site, Extranodal and Solid Organ Sites Active Diagnosis Encounter for Antineoplastic Chemotherapy Active Diagnosis Allergies, Adverse Reactions, Alerts Substance Category Reaction Severity Reaction type Status Date Reported Comments Source Cipro Assertion Peeling skin syndrome, acral type Severe Drug allergy Active [facility] Latex Assertion skin irritaion Drug allergy Active [facility] Tape, Adhesive Assertion skin irritation Allergy to substance Active [facility] Encounters Location Location Details Encounter Type Encounter Number Reason For Visit Attending Provider ADM Date DC Date Status Source [facility] [id number] LABS PENDING Juan Jose Doll Cancel [facility] OUTPATIENT [id number] 1 YR F/U Ujan Jose Doll Cancel [facility] DIAGNOSTIC TESTING [id number] 202.00:L DH,CBC,C MP Cancel [facility] DIAGNOSTIC TEST [id number] CTCHEST/ FOLLICUL AR LYMPHOMA /LUNG NODULE Juan Jose Doll Cancel [facility] [facility] [id number] 202.00 CBC,CMP, LDH 6 M FU Juan Jose Doll Cancel [facility] OUTPATIENT [id number] 202.00 CBC,CMP LDH 6 M FU Juan Jose Doll Cancel [place] [facility] DIAGNOSTIC TESTING [id number] 202.00 CBC,CMP, LDH 6 M FU Juan Jose Doll Cancel [place] [facility] OUTPATIENT [id number] 202.00 CBC,CMP LDH 6 M FU Juan Jose Doll Cancel [place] [facility] DIAGNOSTIC TESTING [id number] C85.90;C BC,CMP,L DH Cancel [place] [facility] OUTPATIENT [id number] C85.90;C BC,CMP,L DH;1Y F/U Juan Jose Doll Cancel [place] [facility] OUTPATIENT [id number] C85.90;C BC,CMP,L DH;1Y F/U Juan Jose Doll Cancel [place] [facility] DIAGNOSTIC TESTING [id number] C85.90;C BC,CMP,L DH Cancel [place] [facility] OUTPATIENT [id number] 1 YEAR FU Juan Jose Doll Cancel [place] [facility] DIAGNOSTIC TESTING [id number] C82.90;C BC/CMP/L DH Juan Jose Doll Cancel [place] [facility] DIAGNOSTIC TESTING [id number] C85.90;C BC,CMP,L DH Juan Jose Doll Cancel [place] [facility] OUTPATIENT [id number] C85.90;C BC,CMP,L DH;1Y F/U Juan Jose Doll Cancel [place] [facility]
--- OUTSIDE RECORDS SUMMARY | 2003-03-24 19:00 | XMS_ITS | Continuity of Care Document ---
Author Name [facility] Address [address] [place] [address] Organization [facility] Care Team Providers Care Implementation Coordinator Name Role Phone [place] [facility] Unavailable Problems Problem Status Onset [...] syndrome, acral type Severe Drug allergy Active [facility] Latex Assertion skin irritaion Drug allergy Active [facility] Tape, Adhesive Assertion skin irritation Allergy to substance Active [facility] Encounters Location Location Details Encounter Type Encounter Number Reason For Visit Attending Provider ADM Date DC Date Status Source [facility] DIAGNOSTIC TESTING [id number] LABS PENDING Juan Jose Doll Cancel [facility] OUTPATIENT [id number] 1 YR F/U Juan Jose Doll Cancel [facility] DIAGNOSTIC TESTING [id number] 202.00:L DH,CBC,C MP Cancel [facility] DIAGNOSTIC TEST [id number] CTCHEST/ FOLLICUL AR LYMPHOMA /LUNG NODULE Juan Jose Doll Cancel [facility] DIAGNOSTIC TESTING [id number] 202.00 CBC,CMP, LDH 6 M FU Juan Jose Doll Cancel [facility] OUTPATIENT [id number] 202.00 CBC,CMP LDH 6 M FU Juan Jose Doll Cancel [place] [facility] DIAGNOSTIC TESTING [id number] 202.00 CBC,CMP, LDH 6 M FU Juan Jose Doll Cancel [place] [facility] OUTPATIENT [id number] 202.00 CBC,CMP LDH 6 M FU Juan Jose Doll Cancel [place] [facility] DIAGNOSTIC TESTING [id number] C85.90;C BC,CMP,L DH Cancel [place] [facility] OUTPATIENT [id number] C85.90;C BC,CMP,L DH;1Y F/U Juan Jose Doll Cancel [place] [facility] OUTPATIENT [id number] C85.90;C BC,CMP,L DH;1Y F/U Juan Jose Doll Cancel [place] [facility] DIAGNOSTIC TESTING [id number] C85.90;C BC,CMP,L DH Cancel [place] [facility] OUTPATIENT [id number] 1 YEAR FU Juan Jose Doll Cancel [place] [facility] DIAGNOSTIC TESTING [id number] C82.90;C BC/CMP/L DH Juan Jose Doll Cancel [place] [facility] DIAGNOSTIC TESTING [id number] C85.90;C BC,CMP,L DH Juan Jose Doll Cancel [place] [facility] OUTPATIENT [id number] C85.90;C BC,CMP,L DH;1Y F/U Juan Jose Doll Cancel [place] [facility]
--- OUTSIDE RECORDS SUMMARY | 2024-08-26 08:00 | XMS_ITS ---
Author Organization [facility] Address [address] [place] [address] Care Team Providers Care Feed Inspection Supervisor Name Role Phone Celia Louis Primary Care Provider Nish Quintanilla Unavailable [phone] MARNI CAZARES Unavailable Unavailable Abelardo Monge JR Unavailable [phone] REASON FOR VISIT 3 month f/u - UTI / C Diff Encounters Encounter Location Date Provider Diagnosis [facility] [address] [place] [phone] 08/26/2024 Abelardo Monge Plan Of Treatment Next Appt Details Provider Name:Abelardo del rosario, 11/24/2024 12:30:00 PM, [address] [place] [address], [phone], Provider Name:Mansi monroe, 12/23/2024 01:00:00 PM, [address] [place] [address] [address], [phone], Progress Notes * ALCIRA BECKMAN KDOB: 4 (69 yo F)Acc No.[id number]:08/26/2024 Progress Notes Patient: ALCIRA OLSON Provider: Rupert Monge MD :1955 A ge:69 Y S ex:Female Date:08/26/2024 Address:[address] [place], [place] [phone] Pcp:Celia Louis Subjective: * Chief Complaints: * 1 . 3 month f/u - UTI / C Diff. * Medical History: Objective: * Vitals: Assessment: Plan: * Treatment: Forms: * Billing Information: * Visit Code: * Procedure Codes: Care Plan Details* * Electronic signature of Julee Monge JR, MD on 09/20/2024 at 05:10 AM CDT Sign off status: Pending * Provider: Rupert Monge MD Date: 08/26/2024 Generated for Karen hernandez/Sven/Ankitasmitting on: 09/20/2024 05:10 AM CDT
--- OUTSIDE RECORDS SUMMARY | 2024-09-14 04:02 | XMS_ITS ---
Author Organization [facility] Address [address] [place] [address] Care Team Providers Care Wirer Street Light Name Role Phone Celia Louis Primary Care Provider MAEVE Powell Unavailable [phone] Rosalino Simmons Unavailable [phone] Allergies Allergen (clinical drug ingredient) Drug/Non Drug Allergy documented on EMR Reaction Allergy Type Onset Date Status Ciprofloxacin Unknown Drug Allergy Act daljit Latex Latex Unknown Allergy Active REASON FOR VISIT (+) urine culture Medications Medication SIG (Take, Route, Frequency, Duration) Notes Start Date End Date Status Sulfamethoxazole-Trimetho prim 800-160 MG 1 tablet Orally twice a day for 5 days 09/14/2024 09/19/2024 Active Encounters Encounter Location Date Provider Diagnosis [facility] [address] [place] [address] 09/14/2024 Rosalino Simmons Plan Of Treatment Medication Medication Name Sig Start Date Stop Date Notes Sulfamethoxazole-Trimethopri m 800-160 MG 1 tablet Orally twice a day for 5 days 09/14/2024 09/19/2024 Next Appt Details Provider Name:MAEVE Emery, 09/22/2024 01:00:00 PM, [address] [place], [phone], Progress Notes * Macey BRUSH KDOB: (69 yo F)Acc No.[id number]:09/14/2024 Patient: Tonia MACIELELIZMacey :1955 A ge:69 Y S ex:Female Address:[address] [place] [address] [place] [address] * Refills Start Sulfamethoxazole-Trimethoprim Tablet, 800-160 MG, Orally, 10 Tablet, 1 tablet, twice a day, 5 days, Refills=0 Subjective: * Chief Complaints: * ( +) urine culture * Medical History: * Surgical History: * Hospitalization/Major Diagno stic Procedure: * Medications: * Allergies: L atex: AllergyCiprofloxacin: Allergyno[Allergies Verified] Objective: * Vitals: * Physical Examination: Assessment: Plan: * Treatment: * Procedure Codes: * true * Date: Generated for Karen hernandez/Sven/Christian on: 0 09/20/2024 05:10 AM CDT
--- OUTSIDE RECORDS SUMMARY | 2024-09-14 09:44 | XMS_ITS ---
Author Organization [facility] Address [address] [place] [address] Care Team Providers Care Trade Recruiter Name Role Phone Celia Louis Primary Care Provider Alee KAUR MAEVE Unavailable [phone] Results Component Value Reference Range Notes Basic Metabolic Panel Reviewed date:09/16/2024 04:20:49 PM Interpretation: Performing Lab: Notes/Report: Testing performed at [facility], [address] [place], [place] [address] [address]. CLIA ID#: [id number] S-qrzbkt-r-benzoquinone imine (NAPQI) is a metabolite of acetaminophen, NAPQI concentrations of apparoximately 10 mg/L correlation to toxic levels of acetaminophen demonstrates a greater than or equil to 10% change in results. NAPQI concentrations greater than this may lead to falsely depressed results for patient samples. Calculation performed from GFR calculator provided by the [employer]. Glomerular Filtration rate(GRF) is the best overall index of kidney function. Normal GFR varies according to age,sex, body size, and declines with age. The National [employer] Foundation recommends using the CKD-EPI Creatinine Equation(2020) to estimate GFR. Testing performed at: [address] [place] [address] CLIA ID [id number] Use of this assay is not recommended for patients undergoing treatment with phenindione, due to the potential for falsely depressed results. Sodium 142 136-145 MMOL/L Potassium 4.6 3.5-5.1 MMOL/L Chloride 113 98-107 MMOL/L CO2 22.1 20.0-31.0 MMOL/L Glucose Serum 78 71-110 MG/DL BUN 35 7-21 MG/DL Creat 2.05 .51-1.17 MG/DL GFR 25.4 Anion Gap 12 5-15 BUN/Creat Ratio 17.1 12.0-20.0 % Calcium 9.1 8.7-10.4 MG/DL Osmo Serum,Calculated 301 280-300 MOSM/KG CBC w/ Auto Diff Reviewed date:09/16/2024 04:20:43 PM Interpretation: Performing Lab: Notes/Report: Testing performed at: [address] [address] CLIA ID [id number] WBC 8.9 4.5-11.0 X10'3 RBC 3.43 4.00-5.20 X10'6 Hgb 9.9 12.0-16.0 G/DL Hct 32.0 36.0-46.0 % MCV 93.3 80.0-100.0 FL MCH 28.9 27.0-31.0 PG MCHC 30.9 31.0-37.0 G/DL Platelet 128 150-400 X10'3 RDW-SD 47.1 35.0-49.0 FL RDW-CV 13.6 12.2-15.6 % MPV 12.1 9.2-12.0 FL Neutro Auto% 33.3 40.0-70.0 % Lymph Auto% 43.8 22.0-44.0 % [place] Auto% 21.7 3.0-7.0 % Eos Auto% .7 2.0-4.0 % Baso Auto% 0.2 0.0-1.0 % Imm Gran% .3 .0-.4 % Neutro Abs 2.97 .80-7.70 Absolute Neutrophil Count 2970 Lymph Abs 3.91 .10-4.10 [place] Abs 1.94 .20-1.00 Eos Abs .06 .00-.40 Baso Abs .02 .00-.20 Imm Gran Abs .03 .00-.10 NRBC# .00 .00-.20 X10'3 NRBC% .00 .00-.20 /100 intact WBC's REASON FOR VISIT Surgery Scheduling Encounters Encounter Location Date Provider Diagnosis [facility] [address] [place] [address] 09/14/2024 MAEVE KAUR CKD (chronic kidney disease) N18.9 ; Ureteral stent present Z96.0 ; Type 2 diabetes mellitus with unspecified complications E11.8 and Preop testing Z01.818 Assessments Encounter Date Diagnosis (ICD Code) Assessment Notes Treatment Notes Treatment Clinical Notes Section Notes 09/14/2024 CKD (chronic kidney disease) (ICD-10 - N18.9) 09/14/2024 Ureteral stent present (ICD-10 - Z96.0) 09/14/2024 Type 2 diabetes mellitus with unspecified complications (ICD-10 - E11.8) 09/14/2024 Preop testing (ICD-10 - Z01.818) Plan Of Treatment Pending Test Test Name Order Date Electrocardiogram, 12 Lead Tracing-[id number] 09/14/2024 Next Appt Details Provider Name:MAEVE Emery, 09/22/2024 01:00:00 PM, [address] [place], [address], Progress Notes * Macey BRUSH KDOB: (69 yo F)Acc No.[id number]:09/14/2024 Patient: Macey OLSON :1955 A ge:69 Y S ex:Female Address:[address] [place] [phone] Subjective: * Chief Complaints: * S urgery Scheduling * Medical History: * Surgical History: * Hospitalization/Major Diagno stic Procedure: * Medications: Objective: * Vitals: * Physical Examination: Assessment: * Assessment: 1. C KD (chronic kidney disease) - N18.9 2 . U reteral stent present - Z96.0 3 . T ype 2 diabetes mellitus with unspecified complications - E11.8 ? 4 . P reop testing - Z01.818 Plan: * Treatment: 2.?Ureteral stent present?LAB: Basic Metabolic Panel (Collection Date & Time - 09/16/2024 12:31 PM) ?LAB: CBC w/ Auto Diff (Collection Date & Time - 09/16/2024 12:31 PM) ?Imaging: Electrocardiogram, 12 Lead Tracing-[id number]* 3.?Type 2 diabetes mellitus with unspecified complications?LAB: Basic Metabolic Panel (Collection Date & Time - 09/16/2024 12:31 PM) ?LAB: CBC w/ Auto Diff (Collection Date & Time - 09/16/2024 12:31 PM) ?Imaging: Electrocardiogram, 12 Lead Tracing-[id number]* 4.?Preop testing?LAB: Basic Metabolic Panel (Collection Date & Time - 09/16/2024 12:31 PM) ?LAB: CBC w/ Auto Diff (Collection Date & Time - 09/16/2024 12:31 PM) ?Imaging: Electrocardiogram, 12 Lead Tracing-[id number]* * Procedure Codes: * true * Date: Generated for Karen hernandez/Sven/eTransmitting on: 0 09/20/2024 05:10 AM CDT
[2024-09-20] VITALS (10 sets, daily range): BP systolic 121–165; BP diastolic 47–107; PULSE 56–77; RESP 12–20; TEMP 36.6–36.8; O2SAT 96–99; BMI 39.3
--- OUTSIDE RECORDS SUMMARY | 2024-09-20 05:08 | XMS_ITS | Continuity of Care Document ---
Author Organization [employer] ([facility]) Address [address] [place] [id number] Insurance Providers Payer Plan Claims Address Claims Phone Policy Number Group Number Relation Employer Guarantor Name Guarantor Guarantor Address Guarantor Phone Human a Medic are Repla gonzales mckeon [address] [address], [place] [address] tel:[phone] Self Macey Brush [address] [place] [id number] Problems Condition ICD9 code ICD10 code SNOMED code Start Date End Date S tatus Acute pyelonephritis N10 01/02/2024 Active Encounter for adjustment and management of vascular access device Z45.2 01/02/2024 Ac tive Urinary tract infection, site not specified N39.0 01/02/2024 Active Proteus (mirabilis) (morganii) as the cause of diseases classified elsewhere B96.4 01/02/2024 Active Muscle weakness (generalized) M62.81 01/03/2024 Active Difficulty in walking, not elsewhere classified R26.2 01/03/2024 Active Unspecified hydronephrosis N13.30 01/02/2024 Active Presence of urogenital implants Z96.0 01/02/2024 Active Candidiasis, unspecified B37.9 01/14/2024 Active Type 2 diabetes mellitus with diabetic peripheral angiopathy without gangrene E11.51 01/02/2024 Active Type 2 diabetes mellitus with diabetic chronic kidney disease E11.22 01/02/2024 Active manager intermediate (current) use of aspirin Z79.82 01/02/2024 Active [facility] (current) use of oral hypoglycemic drugs Z79.84 01/02/2024 Active Hypertensive chronic kidney disease with stage 1 through stage 4 chronic kidney disease, or unspecified chronic kidney disease I12.9 01/02/2024 Active Personal history of nicotine dependence Z87.891 01/02/2024 Activ e Chronic kidney disease, stage 4 (severe) N18.4 01/02/2024 Active 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 01/02/2024 Active Anemia, unspecified D64.9 01/02/2024 A ctive Hyperlipidemia, unspecified E78.5 01/02/2024 Active Hypothyroidism, unspecified E03.9 01/02/2024 Active Sleep apnea, unspecified G47.30 01/02/2024 Active Obesity, unspecified E66.9 01/02/2024 Active Body mass index (BMI) 39.0-39.9, adult Z68.39 01/02/2024 Active Other nonspecific abnormal finding of lung field R91.8 01/02/2024 Active Hypomagnesemia E83.42 01/02/2024 Active Hodgkin lymphoma, unspecified, in remission 01/02/2024 Active Non-Hodgkin lymphoma, unspecified, in remission 01/02/2024 Active Results No Results Allergies, adverse reactions, alerts Substance Reaction Date Status Type ciprofloxacin 01/02/2024 Non Drug Tegaderm AG Mesh 01/02/2024 Non Drug Adhesive Tape 01/02/2024 Non Drug Latex 01/02/2024 Non Drug Immunizations Vaccine Route Date Status COVID-19 Vaccine Unassigned Route of Administration Completed COVID-19 Vaccine Unassigned Route of Administration Completed COVID-19 Vaccine Unassigned Route of Administration Refused Influenza Vaccine Unassigned Route of Administration 1 Completed Pneumococcal Vaccine Unassigned Route of Administratio n 01/10/2024 Completed Medications Medication Instructions Route Dosage Frequency Start Date Stop Date Indications Status Abrysvo (rsv vac, pref a and pref b(pf)) 120 mcg/0.5 mL recon soln (Abrysvo (rsv vac, pref a and pref b(pf))) 0.5ml, intramuscular , Once - One Time intramuscul ar 1.0 01/08 Active acetaminophen 500 mg tablet (acetaminophen ) 2, oral, Every 6 Hours - PRN, Clinical indication: Pain oral 1.0 6.0 h 01/19 Active aspirin 81 mg tablet,delayed release (DR/EC) (aspirin) 1, oral, At Bedtime oral 1.0 01/13 Active atorvastatin 40 mg tablet (atorvastatin) 1, oral, At Bedtime oral 1.0 01/19 Active ceftriaxone 2 gram recon soln (ceftriaxone) 2G, intravenous, Once A Day intravenous 1.0 1.0 d 01/19 Active Dulcolax (bisacodyl) (bisacodyl) 5 mg tablet,delayed release (DR/EC) (Dulcolax (bisacodyl) (bisacodyl)) 2 tabs/10mg, oral, Once A Day - PRN, Give if no results from MOM oral 1.0 1.0 d 01/19 Active Dulcolax (bisacodyl) (bisacodyl) 10 mg suppository (Dulcolax (bisacodyl) (bisacodyl)) 1 suppository, rectal, Once A Day - PRN, Give rectally if can't take p/o, if no results from MOM rectal 1.0 1.0 d 01/19 Active ferrous sulfate 325 mg (65 mg iron) tablet (ferrous sulfate) 1, oral, Once A Day oral 1.0 1.0 d 01/01 Active ferrous sulfate 325 mg (65 mg iron) tablet (ferrous sulfate) 1, oral, Once A Day oral 1.0 1.0 d 01/19 Active Fleet Enema (sodium phosphates) 19-7 gram/118 mL enema (Fleet Enema (sodium phosphates)) 1 application, rectal, Once A Day - PRN, Give fleets if no results from MOM and Dulcolax rectal 1.0 1.0 d 01/19 Active fluconazole 100 mg tablet (fluconazole) 1 tab, oral, Once A Day on Sat, Sat, Sat, Give 1 tab po every 3 days x 3 doses, starting on Sat and ending on the for Candidiasis, per Infectious disease oral 1.0 1.0 d 01/19 Active glyburide 2.5 mg tablet (glyburide) 1, oral, Once A Morning oral 1.0 01/19 Type 2 diabetes mellitus with diabetic peripheral angiopathy without gangrene Active Lactobacillus acidophilus 25 million cell capsule (Lactobacillus acidophilus) 1, oral, Once A Day oral 1.0 1.0 d 01/19 Active levothyroxine 88 mcg tablet (levothyroxine ) 1, oral, Once A Morning oral 1.0 01/19 Hypothyroidi sm, unspecified Active lisinopril 10 mg tablet (lisinopril) 1, oral, Once A Day oral 1.0 1.0 d 01/19 Active loperamide-sim ethicone 2-125 mg tablet (loperamide-si methicone) 1, oral, Every 6 Hours - PRN, Clinical Indication: Loose stools oral 1.0 6.0 h 01/02 Active magnesium oxide 400 mg magnesium tablet (magnesium oxide) 1, oral, Twice A Day oral 1.0 12.0 h 01/19 Active metoprolol succinate 50 mg tablet extended release 24 hr (metoprolol succinate) 1, oral, At Bedtime oral 1.0 01/19 Active midodrine 5 mg tablet (midodrine) 1, oral, Three Times A Day oral 1.0 8.0 h 01/06 Active Milk of Magnesia (magnesium hydroxide) 400 mg/5 mL suspension (Milk of Magnesia (magnesium hydroxide)) 30 ml, oral, Every 72 Hours - PRN, if no BM in 3 daysDO NOT GIVE TO RENAL PATIENTS--GO TO DULCOLAX ORDERS oral 1.0 72.0 h 01/19 Active nifedipine 30 mg tablet extended release (nifedipine) 1, oral, Once A Day oral 1.0 1.0 d 01/19 Active Normal Saline Flush (sodium chloride 0.9 %) - syringe (Normal Saline Flush (sodium chloride 0.9 %)) 5ml, injection, Every Shift, Flush IV with 5ml NS before and after use(SASH) 1.0 8.0 h 01/01 Active Normal Saline Flush (sodium chloride 0.9 %) - syringe (Normal Saline Flush (sodium chloride 0.9 %)) 5ml, injection, Three Times A Day, Flush IV with 5ml NS before and after use(SASH) 1.0 8.0 h 01/19 Active nystatin 100,000 unit/gram cream (nystatin) as directed, topical, Once A Day, Abdomen: Cleanse with ns and water, dry completely apply nystain cream daily topical 1.0 1.0 d 01/06 Active nystatin 100,000 unit/gram cream (nystatin) as directed, topical, Once A Day, Abdomen: Cleanse with ns and gauze, dry completely apply nystain cream daily topical 1.0 1.0 d 01/07 Active Prevnar 20 (PF) (pneumoc 20-jaylen conj-dip cr(pf)) 0.5 mL syringe (Prevnar 20 (PF) (pneumoc 20-jaylen conj-dip cr(pf))) 0.5ml, intramuscular , Once - One Time intramuscul ar 1.0 01/18 Active Prevnar 20 (PF) (pneumoc 20-jaylen conj-dip cr(pf)) 0.5 mL syringe (Prevnar 20 (PF) (pneumoc 20-jaylen conj-dip cr(pf))) 0.5ml, intramuscular , Once - One Time intramuscul ar 1.0 01/08 Active tamsulosin 0.4 mg capsule (tamsulosin) 1, oral, Once A Day Every Other Day oral 1.0 1.0 d 01/01 Active tamsulosin 0.4 mg capsule (tamsulosin) 1, oral, Once A Day oral 1.0 1.0 d 01/19 Active Tubersol (tuberculin ppd) 5 tub. unit /0.1 mL solution (Tubersol (tuberculin ppd)) 0.1ml, intradermal, Once - One Time, Administer the morning after admission intradermal 1.0 01/18 Active Tubersol (tuberculin ppd) 5 tub. unit /0.1 mL solution (Tubersol (tuberculin ppd)) 0.1ml, intradermal, Once - One Time, Administer on the day shift intradermal 1.0 01/18 Active vancomycin 125 mg capsule (vancomycin) 1, oral, Every 6 Hours oral 1.0 6.0 h 01/18 Active vancomycin 125 mg capsule (vancomycin) 1, oral, Twice A Day, Diagnosis: Prophylactic C-Diff oral 1.0 12.0 h 01/19 Active Vital Signs Date Vital Result Comment 01/17/2024 10:33 AM Blood Pressure Systolic 141 mm[Hg] Blood Pressure Diastolic 86 mm[Hg] 01/16/2024 11:55 PM Temperature 97 [degF] Oxygen Saturation 95 % Respiratory Rate 16 /min Heart Rate 88 /min Blood Pressure Systolic 132 mm[Hg] Blood Pressure Diastolic 80 mm[Hg] 01/16/2024 08:04 PM Blood Pressure Systolic 140 mm[Hg] Blood Pressure Diastolic 78 mm[Hg] 01/16/2024 07:25 AM Temperature 98.2 [degF] Oxygen Saturation 96 % Respiratory Rate 19 /min Heart Rate 70 /min Blood Pressure Systolic 136 mm[Hg] Blood Pressure Diastolic 63 mm[Hg] 01/15/2024 08:25 PM Temperature 96.5 [degF] Oxygen Saturation 95 % Respiratory Rate 17 /min Heart Rate 84 /min 01/15/2024 06:29 PM Blood Pressure Systolic 132 mm[Hg] Blood Pressure Diastolic 72 mm[Hg] 01/15/2024 01:33 PM Body Weight 242.4 [lb_av] Body Mass Index 39.12 kg/m2 01/15/2024 07:45 AM Temperature 97.7 [degF] Oxygen Saturation 94 % Respiratory Rate 18 /min Heart Rate 60 /min Blood Pressure Systolic 133 mm[Hg] Blood Pressure Diastolic 62 mm[Hg] 01/14/2024 07:55 PM Temperature 97.3 [degF] Oxygen Saturation 97 % Respiratory Rate 22 /min Heart Rate 79 /min 01/14/2024 06:51 PM Blood Pressure Systolic 160 mm[Hg] Blood Pressure Diastolic 95 mm[Hg] 01/14/2024 08:57 AM Temperature 97.2 [degF] Oxygen Saturation 95 % Respiratory Rate 20 /min Heart Rate 64 /min 01/14/2024 08:56 AM Blood Pressure Systolic 126 mm[Hg] Blood Pressure Diastolic 63 mm[Hg] 01/13/2024 09:46 PM Temperature 97.7 [degF] Oxygen Saturation 93 % Respiratory Rate 16 /min Heart Rate 70 /min 01/13/2024 06:59 PM Blood Pressure Systolic 148 mm[Hg] Blood Pressure Diastolic 78 mm[Hg] 01/13/2024 09:38 AM Temperature 98.2 [degF] Oxygen Saturation 96 % Respiratory Rate 16 /min Heart Rate 70 /min Blood Pressure Systolic 153 mm[Hg] Blood Pressure Diastolic 80 mm[Hg] 01/12/2024 08:01 PM Temperature 100.7 [degF] Oxygen Saturation 95 % Respiratory Rate 23 /min Heart Rate 102 /min 01/12/2024 11:55 AM Temperature 98.1 [degF] Oxygen Saturation 95 % Respiratory Rate 18 /min Heart Rate 73 /min 01/08/2024 10:44 AM Body Weight 242.4 [lb_av] Body Mass Index 39.12 kg/m2 01/05/2024 01:56 PM Body Weight 241.6 [lb_av] Body Mass Index 38.99 kg/m2 01/04/2024 11:16 AM Body Weight 240.6 [lb_av] Body Mass Index 38.83 kg/m2 01/03/2024 01:08 AM Body Height 66 [in_us] 01/02/2024 05:32 PM Body Weight 243.4 [lb_av] Body Mass Index 39.28 kg/m2 Social History No smoking Hx information available Encounters Type CPT Code Date Location Provider Indication s encounter report 01/02/2024 04:0 3 PM - 01/17/2024 08:08 PM Kwaku Yeboah DO 01 Advance Directives Directive Description Verification Date Supporting Document(s) Other Directive
--- OUTSIDE RECORDS SUMMARY | 2024-09-20 05:08 | XMS_ITS | Encounter Summary ---
Author Organization [employer] [facility] Address [address] [place] [address] Care Team Providers Care Surgical Forceps Fabricator Name Role Phone Unavailable Primary Care Provider Unavailabl e Encounter Details Date Type Department Care Team (Latest Contact Info) Description 10/02/2000 Outpatient Historical [facility] Chasegrace Scooby H NO ADDRESS ON FILE Type II or unspecified type diabetes mellitus without mention of complication, not stated as uncontrolled (Primary Dx) Social History Tobacco Use Types Packs/Day Years Used Date Smoking Tobacco: Never Assessed Comments Unknown Sex and Gender Information Value Date Recorded Sex Assigned at Not on file 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
--- OUTSIDE RECORDS SUMMARY | 2024-09-20 05:08 | XMS_ITS | Clinical Summary ---
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 Gender Identity Not on file Sexual Orientation Not on file Plan of Treatment Health Maintenance Due Date Last Done Comments DIABETES ANNUAL FOOT EXAM 1971 DIABETES ANNUAL RETINAL EXAM 1971 DIABETES HBA1C Q 6 MONTHS 1971 DIABETES MICROALBUMIN ANNUAL SCREEN 1971 LDL CHOLESTEROL ANNUAL 1971 DTAP/TDAP/TD VACCINES (1 - Tdap) 1972 PNEUMOCOCCAL VACCINE 50+ YEARS (1 of 2 - PCV) 05/11/18 73 ZOSTER VACCINE (1 of 2) 1972 BREAST CANCER SCREENING 1993 COLORECTAL SCREENING 1998 Colorectal Cancer Screening 1998 FIT-DNA Q 3 years 1998 FIT/FOBT Q 1 year 1998 Flex Sig/CT Colonography Q 5 years 1998 RSV VACCINE (60+ or ) (1 - Risk 60-74 years 1-dose series) 2013 OSTEOPOROSIS SCREENING 2018 INFLUENZA VACCINE (#1) 2023 Insurance [facility] MEDICARE [place] [address]
--- OUTSIDE RECORDS SUMMARY | 2024-09-20 05:08 | XMS_ITS | Encounter Summary ---
Author Organization [employer] [facility] Address [address] [place] [address] Care Team Providers Care Peoplesoft Hcm Developer Name Role Phone Unavailable Primary Care Provider Unavailabl e Encounter Details Date Type Department Care Team (Latest Contact Info) Description 08/26/2000 Outpatient Historical [facility] Scooby Desai NO ADDRESS ON FILE Unspecified disorder of skin and subcutaneous tissue (Primary Dx) Social History Tobacco Use Types Packs/Day Years Used Date Smoking Tobacco: Never Assessed Comments Unknown Sex and Gender Information Value Date Recorded Sex Assigned at Not on file 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
--- OUTSIDE RECORDS SUMMARY | 2024-09-20 05:09 | XMS_ITS | Encounter Summary ---
Author Organization [employer] [facility] Address [address] [place] [address] Care Team Providers Care Contact Center Agent Name Role Phone Unavailable Primary Care Provider Unavailabl e Encounter Details Date Type Department Care Team (Latest Contact Info) Description 07/31/1999 Outpatient Historical [facility] Chasegrace Scooby H NO ADDRESS ON FILE Type II or unspecified type diabetes mellitus without mention of complication, not stated as uncontrolled (Primary Dx); Personal history of endocrine, metabolic, and immunity disorders Social History Tobacco Use Types Packs/Day Years Used Date Smoking Tobacco: Never Assessed Comments Unknown Sex and Gender Information Value Date Recorded Sex Assigned at Not on file 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
--- OUTSIDE RECORDS SUMMARY | 2024-09-20 05:09 | XMS_ITS | Encounter Summary ---
Author Organization [employer] [facility] Address [address] [place] [address] Care Team Providers Care Telephone Lineman Name Role Phone Unavailable Primary Care Provider Unavailabl e Encounter Details Date Type Department Care Team (Latest Contact Info) Description 04/12/2000 Outpatient Historical [facility] ChaseScooby edwards Akin NO ADDRESS ON FILE Type II or unspecified type diabetes mellitus without mention of complication, not stated as uncontrolled (Primary Dx); Elevated blood pressure reading without diagnosis of hypertension Social History Tobacco Use Types Packs/Day Years Used Date Smoking Tobacco: Never Assessed Comments Unknown Sex and Gender Information Value Date Recorded Sex Assigned at Not on file 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
--- OUTSIDE RECORDS SUMMARY | 2024-09-20 05:09 | XMS_ITS | Encounter Summary ---
Author Organization [employer] [facility] Address [address] [place] [address] Care Team Providers Care International Editorial Producer Name Role Phone Unavailable Primary Care Provider Unavailabl e Encounter Details Date Type Department Care Team (Latest Contact Info) Description 01/12/2000 Outpatient Historical [facility] ChaseScooby edwards Akin NO ADDRESS ON FILE Type II or unspecified type diabetes mellitus without mention of complication, not stated as uncontrolled (Primary Dx); Lumbago Social History Tobacco Use Types Packs/Day Years Used Date Smoking Tobacco: Never Assessed Comments Unknown Sex and Gender Information Value Date Recorded Sex Assigned at Not on file 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
--- OUTSIDE RECORDS SUMMARY | 2024-09-20 05:09 | XMS_ITS | Encounter Summary ---
Author Organization [employer] [facility] Address [address] [place] [address] Care Team Providers Care Assembler Rubber Footwear Name Role Phone Unavailable Primary Care Provider Unavailabl e Encounter Details Date Type Department Care Team (Latest Contact Info) Description 06/28/2000 Outpatient Historical [facility] Chasegrace Scooby H NO ADDRESS ON FILE Type II or unspecified type diabetes mellitus without mention of complication, not stated as uncontrolled (Primary Dx); Unspecified hypothyroidism; Unspecified essential hypertension; Screening for lipoid disorders Social History Tobacco Use Types Packs/Day Years Used Date Smoking Tobacco: Never Assessed Comments Unknown Sex and Gender Information Value Date Recorded Sex Assigned at Not on file 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
--- OUTSIDE RECORDS SUMMARY | 2024-09-20 05:09 | XMS_ITS | Patient Health Record ---
Author Organization [email or web address] Address [address] [place] [address] Care Team Providers Care Glazing Department Supervisor Name Role Phone Celia Louis Primary Care Provider MAEVE Powell Unavailable [phone] JARRETTMADISONIE Unavailable [phone] Rosalino Simmons Unavailable [phone] Allergies Allergen (clinical drug ingredient) Drug/Non Drug Allergy documented on EMR Reaction Allergy Type Onset Date Status Ciprofloxacin Unknown Drug Allergy Act daljit Latex Latex Unknown Allergy Active Results Component Value Reference Range Notes Culture Urine Reflex Reviewed date:07/09/2024 02:39:19 PM Interpretation: Performing Lab: Notes/Report: Testing performed at: [address] [address] CLIA ID [id number] Culture Urine Reflex SHE Plascencia Culture Urine Reflex t: Culture Urine Reflex [id number] Culture Urine Reflex n: Culture Urine Reflex Microbiology Culture Urine Reflex PROCEDURE: Culture Urine Reflex [] Culture Urine Reflex SOURCE: U CC BODY SITE: Culture Urine Reflex COLLECTED DATE/TIME : 07/06/2024 12:32 CDT RECEIVED DATE/TIME: 07/06/2024 13:34 CDT Culture Urine Reflex START DATE/TIME: 07/06/2024 13:34 CDT FREE TEXT SOURCE: Culture Urine Reflex FINAL REPORT Culture Urine Reflex Final Report [] Culture Urine Reflex Verified Date/Time: 07/09/2024 05:58 CDT Culture Urine Reflex >100,000 cfu/ml. Escherichia coli Culture Urine Reflex and Culture Urine Reflex >100,000 cfu/ml. Proteus mirabilis Culture Urine Reflex SUSCEPTIBILITY RESULTS Culture Urine Reflex Esccol Culture Urine Reflex Antibiotic MDIL MINT Culture Urine Reflex Ampicillin >=32 Resistant Culture Urine Reflex Ampicillin/Sulbacta m >=32 Resistant Culture Urine Reflex Cefepime 1 Susceptible Culture Urine Reflex Ceftazidime >=32 Resistant Culture Urine Reflex Ceftriaxone >=64 Resistant Culture Urine Reflex Ciprofloxacin <=0.0 6 Susceptible Culture Urine Reflex ESBL Negative Negative Culture Urine Reflex Gentamicin <=1 Susceptible Culture Urine Reflex Levofloxacin <=0.12 Susceptible Culture Urine Reflex Meropenem <=0.25 Susceptible Culture Urine Reflex Nitrofurantoin 32 Susceptible Culture Urine Reflex Piperacillin/Tazoba ctam >=128 Resistant Culture Urine Reflex Trimethoprim/Sulfa <=20 Susceptible Culture Urine Reflex Promir Culture Urine Reflex Antibiotic MDIL MINT Culture Urine Reflex Ampicillin <=2 Susceptible Culture Urine Reflex Ampicillin/Sulbacta m <=2 Susceptible Culture Urine Reflex Cefepime 0.25 Susceptible Culture Urine Reflex Ceftazidime <=0.5 Susceptible Culture Urine Reflex Ceftriaxone <=0.25 Susceptible Culture Urine Reflex Ciprofloxacin <=0.0 6 Susceptible Culture Urine Reflex Gentamicin <=1 Susceptible Culture Urine Reflex Levofloxacin <=0.12 Susceptible Culture Urine Reflex Meropenem 1 Susceptible Culture Urine Reflex Nitrofurantoin 128 Resistant Culture Urine Reflex Piperacillin/Tazoba ctam <=4 Susceptible Culture Urine Reflex Trimethoprim/Sulfa <=20 Susceptible UA Micro Reviewed date:07/06/2024 02:00:16 PM Interpretation: Performing Lab: Notes/Report: Micro UA ordered by Discern Expert Rules system. RBC U 11 WBC U >999 0-5 /HPF Bacteria 3+ Hyaline Casts 3 SQ EPI 2 Testing perform ed at: [address] [place] [address] CLIA ID [id number] Basic Metabolic Panel Reviewed date:07/06/2024 02:00:16 PM Interpretation: Performing Lab: Notes/Report: Testing performed at [facility], [address] [place] [address] [place] [address]. CLIA ID#: [id number] L-ojaeyy-l-benzoquinone imine (NAPQI) is a metabolite of acetaminophen, [...] Equation(2020) to estimate GFR. Testing performed at: [address] [place] [address] CLIA ID [id number] Use of this assay is not recommended for patients undergoing treatment with phenindione, due to the potential for falsely depressed results. Sodium 143 136-145 MMOL/L Potassium 3.3 3.5-5.1 MMOL/L Chloride 109 98-107 MMOL/L CO2 26.1 20.0-31.0 MMOL/L Glucose Serum 220 71-110 MG/DL BUN 19 7-21 MG/DL Creat 1.59 .51-1.17 MG/DL GFR 34.6 Anion Gap 11 5-15 BUN/Creat Ratio 11.9 12.0-20.0 % Calcium 8.6 8.7-10.4 MG/DL Osmo Serum,Calculated 305 280-300 MOSM/KG CBC w/ Auto Diff Reviewed date:07/06/2024 02:00:16 PM Interpretation: Performing Lab: Notes/Report: Testing performed at: [address] [place] [address] CLIA ID [id number] WBC 9.4 4.5-11.0 X10'3 RBC 3.30 4.00-5.20 X10'6 Hgb 9.3 12.0-16.0 G/DL Hct 30.8 36.0-46.0 % MCV 93.3 80.0-100.0 FL MCH 28.2 27.0-31.0 PG MCHC 30.2 31.0-37.0 G/DL Platelet 151 150-400 X10'3 RDW-SD 54.9 35.0-49.0 FL RDW-CV 15.7 12.2-15.6 % MPV 11.6 9.2-12.0 FL Neutro Auto% 35.3 40.0-70.0 % Lymph Auto% 39.5 22.0-44.0 % Gregory Auto% 23.5 3.0-7.0 % Eos Auto% 1.4 2.0-4.0 % Baso Auto% 0.1 0.0-1.0 % Imm Gran% .2 .0-.4 % Neutro Abs 3.33 .80-7.70 Absolute Neutrophil Count 3330 Lymph Abs 3.73 .10-4.10 Gregory Abs 2.22 .20-1.00 Eos Abs .13 .00-.40 Baso Abs .01 .00-.20 Imm Gran Abs .02 .00-.10 NRBC# .00 .00-.20 X10'3 NRBC% .00 .00-.20 /100 intact WBC's UA Reflex -- [id number] Reviewed date:07/06/2024 02:00:16 PM Interpretation: Performing Lab: Notes/Report: Testing performed at: [address], [place] [address] CLIA ID [id number] Color UA Yellow Clarity UA Cloudy Specific gravity UA 1.012 1.005-1.030 Urine pH 8.0 5.0-8.0 Urine Glucose Trace Urine Bilirubin Negative Urine Ketone Negative Urine Blood 2+ Urine Protein 2+ Urobilinogen 0.2 0.1-1.0 Urine Nitrite Positive Urine Leukocyte 3+ Normal UA No Urine Culture Yes zzzRetrograde Urography Reviewed date:07/08/2024 04:10:57 PM Interpretation: Performing Lab: Notes/Report: See Below For Report Retrograde Urography Read See Below For Report zzzRetrograde Urography Reviewed date:12/31/2023 09:15:05 PM Interpretation: Performing Lab: Notes/Report: See Below For Report Retrograde Urography BG 221 @0120, pt states had c-diff multiple times. bm in urine. no sample yet. 3516 @ 0150 Read See Below For Report Urinalysis, Routine Reviewed date:03/03/2024 02:18:02 PM Interpretation: Performing Lab: Notes/Report: Urine-Color yellow Appearance cloudy Glucose trace Bilirubin - Ketones - Specific [place] 1.010 Occult Blood 3+ pH 7.5 Urine Protein 2+ Urobilinogen,Semi-Qn - Nitrite, Urine positive WBC Esterase 3+ Basic Metabolic Panel Reviewed date:10/15/2023 11:00:18 AM Interpretation: Performing Lab: Notes/Report: Use of this assay is not recommended for patients undergoing treatment with phenindione, due to the potential for falsely depressed results. Testing performed at: [address] [place] [address] CLIA ID [id number] Calculation performed from GFR calculator provided by the [employer]. Glomerular Filtration rate(GRF) is the best overall index of kidney function. Normal GFR varies according to age,sex, body size, and declines with age. The National Kidney Foundation recommends using the CKD-EPI Creatinine Equation(2020) to estimate GFR. C-esazsg-e-benzoquinone imine (NAPQI) is a metabolite of acetaminophen, NAPQI concentrations of apparoximately 10 mg/L correlation to toxic levels of acetaminophen demonstrates a greater than or equil to 10% change in results. NAPQI concentrations greater than this may lead to falsely depressed results for patient samples. Testing performed at [facility], [address] [place] [address] [place] [address]. CLIA ID#: [id number] Sodium 142 136-145 MMOL/L Potassium 5.2 3.5-5.1 MMOL/L Chloride 111 98-107 MMOL/L CO2 26.8 20.0-31.0 MMOL/L Glucose Serum 127 71-110 MG/DL BUN 32 7-21 MG/DL Creat 1.54 .51-1.17 MG/DL GFR 35.9 Anion Gap 9 5-15 BUN/Creat Ratio 20.8 12.0-20.0 % Calcium 8.7 8.7-10.4 MG/DL Osmo Serum,Calculated 302 280-300 MOSM/KG US Renal--[id number] Reviewed date:10/16/2023 08:33:25 AM Interpretation: Performing Lab: Notes/Report: See Below For Report US Renal Read See Below For Report zzzAbdomen AP Reviewed date:10/16/2023 08:33:14 AM Interpretation: Performing Lab: Notes/Report: See Below For Report Abdomen AP Read See Below For Report Glucometer WBG Reviewed date:11/22/2023 10:47:35 AM Interpretation: Performing Lab: Notes/Report: 5408 Glucometer WBG 118 65-110 MG/DL Notify RN~Meter: [id number]~Planer Hand: [id number] KAMLESH OZUNA Testing performed at: [address] [place] [address] CLIA ID [id number] Urinalysis, Routine Reviewed date:11/18/2023 02:16:06 PM Interpretation: Performing Lab: Notes/Report: Urine-Color yellow Appearance cloudy Glucose - Bilirubin - Ketones - Specific [place] 1.015 Occult Blood 3+ pH 7.0 Urine Protein 2+ Urobilinogen,Semi-Qn - Nitrite, Urine postive WBC Esterase 3+ Urinalysis, Routine Reviewed date:10/15/2023 03:34:03 PM Interpretation: Performing Lab: Notes/Report: Urine-Color yellow Appearance clear Glucose - Bilirubin - Ketones - Specific [place] 1.025 Occult Blood 3+ pH 6.0 Urine Protein 1+ Urobilinogen,Semi-Qn - Nitrite, Urine - WBC Esterase - zzzAbdomen AP Reviewed date:09/10/2024 07:53:37 AM Interpretation: Performing Lab: Notes/Report: See Below For Report Abdomen AP Read See Below For Report Culture Blood Reviewed date:01/16/2024 05:04:15 PM Interpretation: Performing Lab: Notes/Report: Testing performed at: [address] [place] [address] CLIA ID [id number] Culture Blood MACEY Plascencia Culture Blood t: Culture Blood Culture Blood Accessio [id number] Culture Blood n: Culture Blood Microbiology Culture Blood PROCEDURE: Culture Blood [] Culture Blood SOURCE: Blood BODY SITE: Culture Blood COLLECTED DATE/TIME: 10/05/2023 10:10 CDT RECEIVED DATE/TIME: 10/05/2023 12:36 CDT Culture Blood START DATE/TIME: 10/05/2023 12:37 CDT FREE TEXT SOURCE: left forearm Culture Blood FINAL REPORT Culture Blood Final Report [] Culture Blood Verified Date/Time: 10/10/2023 06:17 CDT Culture Blood No growth at 5 days. Culture Blood Reviewed date:01/16/2024 05:04:06 PM Interpretation: Performing Lab: Notes/Report: Testing performed at: [address] [place] [address] CLIA ID [id number] Culture Blood MACEY Plascencia Culture Blood t: Culture Blood Culture Blood Accessio [id number] Culture Blood n: Culture Blood Microbiology Culture Blood PROCEDURE: Culture Blood [] Culture Blood SOURCE: Blood BODY SITE: Culture Blood COLLECTED DATE/TIME: 10/05/2023 10:20 CDT RECEIVED DATE/TIME: 10/05/2023 12:36 CDT Culture Blood START DATE/TIME: 10/05/2023 12:37 CDT FREE TEXT SOURCE: rac Culture Blood FINAL REPORT Culture Blood Final Report [] Culture Blood Verified Date/Time: 10/10/2023 06:17 CDT Culture Blood No growth at 5 days. Culture Urine Reviewed date:01/16/2024 05:03:59 PM Interpretation: Performing Lab: Notes/Report: Testing performed at: [address] [place] [address] CLIA ID [id number] Culture Urine MACEY Plascencia Culture Urine t: Culture Urine Culture Urine Accessio [id number] Culture Urine n: Culture Urine Microbiology Culture Urine PROCEDURE: Culture Urine [] Culture Urine SOURCE: U CC BODY SITE: Culture Urine COLLECTED DATE/TIME: 10/05/2023 11:50 CDT RECEIVED DATE/TIME: 10/05/2023 18:05 CDT Culture Urine START DATE/TIME: 10/05/2023 18:05 CDT FREE TEXT SOURCE: Culture Urine FINAL REPORT Culture Urine Final Report [] Culture Urine Verified Date/Time: 10/07/2023 07:39 CDT Culture Urine >10,000 cfu/ml Prote us mirabilis Culture Urine SUSCEPTIBILITY RESULTS Culture Urine Promir Culture Urine Antibiotic MDIL MINT Culture Urine Amikacin <=2 Susceptible Culture Urine Amoxicillin/Clavulan ic Acid 4 Susceptible Culture Urine Ampicillin <=2 Susceptible Culture Urine Ampicillin/Sulbactam <=2 Susceptible Culture Urine Aztreonam <=1 Susceptible Culture Urine Cefepime <=1 Susceptible Culture Urine Cefotetan <=4 Susceptible Culture Urine Cefoxitin 8 Susceptible Culture Urine Ceftazidime <=1 Susceptible Culture Urine Ceftriaxone <=1 Susceptible Culture Urine Cefuroxime <=1 Susceptible Culture Urine Ciprofloxacin <=0.25 Susceptible Culture Urine Gentamicin <=1 Susceptible Culture Urine Levofloxacin <=0.12 Susceptible Culture Urine Nitrofurantoin 256 Resistant Culture Urine Piperacillin <=4 Susceptible Culture Urine Piperacillin/Tazobac real <=4 Susceptible Culture Urine Tetracycline >=16 Resistant Culture Urine Tobramycin <=1 Susceptible Culture Urine Trimethoprim/Sulfa <=20 Susceptible Culture Urine Reflex Reviewed date:01/16/2024 05:04:09 PM Interpretation: Performing Lab: Notes/Report: Testing performed at: [address] [address] CLIA ID [id number] Culture Urine Reflex MACEY Plascencia Culture Urine Reflex t: Culture Urine Reflex Culture Urine Reflex Accessio [id number] Culture Urine Reflex n: Culture Urine Reflex Microbiology Culture Urine Reflex PROCEDURE: Culture Urine Reflex [] Culture Urine Reflex SOURCE: Urine BODY SITE: Culture Urine Reflex COLLECTED DATE/TIME : 10/05/2023 10:16 CDT RECEIVED DATE/TIME: 10/05/2023 10:30 CDT Culture Urine Reflex START DATE/TIME: 10/05/2023 10:30 CDT FREE TEXT SOURCE: Culture Urine Reflex FINAL REPORT Culture Urine Reflex Final Report [] Culture Urine Reflex Verified Date/Time: 10/07/2023 07:46 CDT Culture Urine Reflex >100,000 cfu/ml. Proteus mirabilis Culture Urine Reflex SUSCEPTIBILITY RESULTS Culture Urine Reflex Promir Culture Urine Reflex Antibiotic MDIL MINT Culture Urine Reflex Amikacin <=2 Susceptible Culture Urine Reflex Amoxicillin/Clavula lane Acid 4 Susceptible Culture Urine Reflex Ampicillin <=2 Susceptible Culture Urine Reflex Ampicillin/Sulbacta m <=2 Susceptible Culture Urine Reflex Aztreonam <=1 Susceptible Culture Urine Reflex Cefepime <=1 Susceptible Culture Urine Reflex Cefotetan <=4 Susceptible Culture Urine Reflex Cefoxitin 8 Susceptible Culture Urine Reflex Ceftazidime <=1 Susceptible Culture Urine Reflex Ceftriaxone <=1 Susceptible Culture Urine Reflex Cefuroxime 2 Susceptible Culture Urine Reflex Ciprofloxacin <=0.2 5 Susceptible Culture Urine Reflex Gentamicin <=1 Susceptible Culture Urine Reflex Levofloxacin <=0.12 Susceptible Culture Urine Reflex Piperacillin <=4 Susceptible Culture Urine Reflex Piperacillin/Tazoba ctam <=4 Susceptible Culture Urine Reflex Tetracycline >=16 Resistant Culture Urine Reflex Tobramycin <=1 Susceptible Culture Urine Reflex Trimethoprim/Sulfa <=20 Susceptible Basic Metabolic Panel Reviewed date:09/16/2024 04:20:49 PM Interpretation: Performing Lab: Notes/Report: Use of this assay is not recommended for patients undergoing treatment with phenindione, due to the potential for falsely depressed results. Testing performed at: [address] [place] [address] CLIA ID [id number] Calculation performed from GFR calculator provided by the National Kid[employer]. Glomerular Filtration rate(GRF) is the best overall index of kidney function. Normal GFR varies according to age,sex, body size, and declines with age. The National Kidney Foundation recommends using the CKD-EPI Creatinine Equation(2020) to estimate GFR. N-qpezuk-f-benzoquinone imine (NAPQI) is a metabolite of acetaminophen, NAPQI concentrations of apparoximately 10 mg/L correlation to toxic levels of acetaminophen demonstrates a greater than or equil to 10% change in results. NAPQI concentrations greater than this may lead to falsely depressed results for patient samples. Testing performed at [facility], [address] [place] [address] [place] [address]. CLIA ID#: [id number] Sodium 142 136-145 MMOL/L Potassium 4.6 3.5-5.1 [...] Interpretation: Performing Lab: Notes/Report: Testing performed at: [address] [place] [address] CLIA ID [id number] WBC 8.9 4.5-11.0 X10'3 RBC 3.43 4.00-5.20 X10'6 Hgb 9.9 12.0-16.0 G/DL Hct 32.0 36.0-46.0 % MCV 93.3 80.0-100.0 FL MCH 28.9 27.0-31.0 PG MCHC 30.9 31.0-37.0 G/DL Platelet 128 150-400 X10'3 RDW-SD 47.1 35.0-49.0 FL RDW-CV 13.6 12.2-15.6 % MPV 12.1 9.2-12.0 FL Neutro Auto% 33.3 40.0-70.0 % Lymph Auto% 43.8 22.0-44.0 % Gregory Auto% 21.7 3.0-7.0 % Eos Auto% .7 2.0-4.0 % Baso Auto% 0.2 0.0-1.0 % Imm Gran% .3 .0-.4 % Neutro Abs 2.97 .80-7.70 Absolute Neutrophil Count 2970 Lymph Abs 3.91 .10-4.10 Gregory Abs 1.94 .20-1.00 Eos Abs .06 .00-.40 Baso Abs .02 .00-.20 Imm Gran Abs .03 .00-.10 NRBC# .00 .00-.20 X10'3 NRBC% .00 .00-.20 /100 intact WBC's US Renal w/bladder--[id number] Reviewed date:09/10/2024 07:53:37 AM Interpretation: Performing Lab: Notes/Report: See Below For Report US Renal w/bladder Read See Below For Report Urinalysis, Routine Reviewed date:09/09/2024 02:39:58 PM Interpretation: Performing Lab: Notes/Report: Urine-Color pale yellow Appearance cloudy Glucose - Bilirubin - Ketones - Specific [place] 1.000 Occult Blood 2+ pH 7.0 Urine Protein +- Urobilinogen,Semi-Qn - Nitrite, Urine - WBC Esterase 3+ CULTURE, URINE, ROUTINE (395 ) Reviewed date:09/14/2024 09:02:56 AM Interpretation: Performing Lab:JACQUIE, [id number] Viktoriya Adams, [id number] Amrita Talbot MD Notes/Report: NON-FASTING CULTURE, URINE, ROUTINE SEE NOTE CULTURE, URINE, ROUTINE Micro Number: [id number] Test Status: Final Specimen Source: Not given Specimen Quality: Adequate Result: Greater than 100,000 CFU/mL of Escherichia coli Comment: No collection date was provided. The specimen is generally defined as stable up to 48 hours. The result(s) need(s) to be interpreted cautiously. Clinicopathologic correlation is required. Repeat testing is recommended as clinically indicated. Customer Service is available with questions or comments based on your area of interest: [id number] ([phone]) E.coli INT KAREEM AMOX/CLAVULANATE R >=32 AMP/SULBACTAM R >=32 CEFAZOLIN R >=64 1 CEFEPIME S 0.25 CEFTAZIDIME R 16 CEFTRIAXONE R >=64 CIPROFLOXACIN S <=0.06 GENTAMICIN S <=1 IMIPENEM S 1 LEVOFLOXACIN S <=0.12 MEROPENEM S <=0.25 NITROFURANTOIN I 64 PIP/TAZOBACTAM R 64 TRIMETHOPRIM/SULFA S <=20 S = Susceptible I = Intermediate R = Resistant NS = Not susceptible SDD = Susceptible Dose Dependent * = Not Tested NR = Not Reported NN = See Therapy Comments THERAPY COMMENTS Note 1: For uncomplicated UTI caused by E. coli, K. pneumoniae or P. mirabilis: Cefazolin is susceptible if KAREEM <32 mcg/mL and predicts susceptible to the oral agents cefaclor, cefdinir, cefpodoxime, cefprozil, cefuroxime, cephalexin and loracarbef. NO COLLECTION DATE RECEIVED. WE HAVE USED THE DATE THE SPECIMEN WAS RECEIVED BY THIS LABORATORY THE COLLECTION DATE. IF THIS IS INCORRECT, PLEASE CONTACT CLIENT SERVICES. PHONE NUMBER: [phone] Reason For Referral Reason Referral to ID for r ecurrent UTIs ( ) Diagnosis 1 Recurrent UTI (N39.0 ) Referral Organization [facility] Referring Provider First Name MAEVE Referring Provider Last Name NATASHA Referring Provider Speciality Urology Referred Provider Specialty Infectious D isease Referral Priority Routine Reason Referral to nephrolo gy for CKD. ( ) Diagnosis 1 CKD (chronic kidney disease) (N18.9) Referral Organization [facility] Referring Provider First Name MAEVE Referring Provider Last Name KAUR Referring Provider Speciality Urology Referred Provider Specialty Nephrology Referral Priority Routine Medications Medication SIG (Take, Route, Frequency, Duration) Notes Start Date End Date Status Levothyroxine Sodium 88 MCG 1 tablet in the morning on an empty stomach Orally Once a day Active glyBURIDE 2.5 MG 1 tablet with breakfast or the first main meal of the day Orally Once a day Active Metoprolol Succinate 50 MG 1 capsule Orally Once a day *Reorder from [employer] for eRx and Interaction Alerts* Active Ferrous Gluconate 324 (38 Fe) MG 1 tablet Orally Three times a Week Active Atorvastatin Calcium 40 MG 1 tablet Orally Once a day Active Januvia 100 MG 1 tablet Orally Once a day Not-Taking Acidophilus 100 MG as directed Orally Active Cefdinir 300 MG as directed Orally Active Clopidogrel Bisulfate 75 MG 1 tablet Orally Once a day Not-Taking Vitamin D 25 MCG (1000 UT) 1 tablet Orally Once a day Active Symbicort Not-Taking hydrALAZINE HCl Acti ve Tamsulosin HCl 0.4 MG TAKE 1 CAPSULE EVERY DAY for 90 Active Aspirin 81 MG 1 tablet Orally Once a day Active Lisinopril 20 MG 1 tablet Orally Once a day Not-Taking Social History Tobacco Use: Social History Observation Description Date Details (start date - stop date) Former Smoker NA - NA Tobacco Use/Smoking Question Answer Notes Tobacco use: former smoker How long has it been since you last smoked? > 10 years Section Notes: tobacco - nopnsmoker Alcohol - None Caffeine - daily coffee tobacco - nopnsmoker Alcohol - None Caffeine - daily coffee tobacco - nopnsmoker Alcohol - None Caffeine - daily coffee tobacco - nopnsmoker Alcohol - None Caffeine - daily coffee tobacco - nopnsmoker Alcohol - None Caffeine - daily coffee tobacco - nopnsmoker Alcohol - None Caffeine - daily coffee tobacco - nopnsmoker Alcohol - None Caffeine - daily coffee tobacco - nopnsmoker Alcohol - None Caffeine - daily coffee tobacco - nopnsmoker Alcohol - None Caffeine - daily coffee tobacco - nopnsmoker Alcohol - None Caffeine - daily coffee tobacco - nopnsmoker Alcohol - None Caffeine - daily coffee tobacco - nopnsmoker Alcohol - None Caffeine - daily coffee tobacco - nopnsmoker Alcohol - None Caffeine - daily coffee Problems Problem Type SNOMED Code ICD Code Onset Dates Problem Status W/U Status Risk Notes Problem 51238032 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 confirmed Problem 35247877 Type 2 diabetes mellitus with unspecified complications (E11.8) Active confirmed Problem 449032395 History of urinary retention (Z87.898) Active confirmed Problem 55777451 Hydronephrosis, left (N13.30) Active confirmed Problem Urgent desire to urinate (74615299) Urinary urgency (R39.15) Active confirmed Problem Ureteral stent present (Z96.0) Active confirmed Problem 63038403 Primary hypertension (I10) Active confirmed Problem Chronic kidney disease (751488842) CKD (chronic kidney disease) (N18.9) Active confirmed Problem 551263716719882 History of sepsi s (Z86.19) Active confirmed Problem 112120650 History of endometrial cancer (Z85.42) Active confirmed Problem 979528043 Lymphoma, non-Hodgkin's (C85.90) Active confirmed Problem Urinary frequency (337285460) Urinary frequency (R35.0) Active confirmed Problem 569861973 Recurrent UTI (N39.0) Active confirmed Problem 73208520 Bilateral hydronephrosis (N13.30) Active confirmed Problem Incomplete emptying of bladder (740112077) Incomplete emptying of bladder (R33.9) Active confirmed Problem 771183395 Microscopic hematuria (R31.29) Active confirmed Problem serum creatinine raised (658002622) Elevated serum creatinine (R79.89) Active confirmed Problem History of urinary tract infection (3851087779556) History of UTI (Z87.440) Active confirmed Problem Urinary retention (460535740) Urinary retention (R33.9) Active confirmed Problem 218036335 Malignant neoplasm of urinary bladder, unspecified site (C67.9) Active confirmed Problem History of hydronephrosis (20401461372477090 ) History of hydronephrosis (Z87.448) Active confirmed Problem Chronic kidney disease stage 4 (768533447) Chronic kidney disease (CKD), stage IV (severe) (N18.4) Active confirmed Problem 253998217 Bladder mass (N32.89) Active confirmed Vital Signs Heart Rate 74 /min 06/22/2024 Blood pressure diastolic 64 mm Hg 06/22/2024 Height-cm 160.02 cm 09/09/2024 Weight-kg 97.52 kg 09/09/2024 Height 63 in 09/09/2024 Blood pressure systolic 152 mm Hg 06/22/2024 Weight 215 lbs 09/09/2024 BMI 38.08 kg/m2 09/09/2024 Procedures Procedure Date Ordered Date Performed Result Body Sit e Bladder Scan 10/15/2023 N/A Bladder Scan 11/18/2023 11/18/2023 PVR0ml Bladder Scan 03/03/2024 03/03/2024 PVR 0ML Encounters Encounter Location Date Provider Diagnosis [facility] [address] [facility] [place] [address] 07/08/2024 MAEVE KAUR [facility] [address] [facility] [address] [facility] [place] [address] 10/15/2023 Rosalino Simmons Ureteral stent prese nt Z96.0 ; Recurrent UTI N39.0 ; History of urinary retention Z87.898 ; History of hydronephrosis Z87.448 and Hydronephrosis N13.30 [facility] [address] [facility] [place] [address] 11/18/2023 MAEVE KAUR Ureteral stent prese nt Z96.0 ; Recurrent UTI N39.0 ; History of urinary retention Z87.898 ; History of hydronephrosis Z87.448 and Chronic kidney disease (CKD), stage IV (severe) N18.4 [place], [facility] [address] [facility] [place] [address] 01/30/2024 MAEVE HOOKSER Ureteral stent prese nt Z96.0 ; Recurrent UTI N39.0 ; History of urinary retention Z87.898 ; History of hydronephrosis Z87.448 and Chronic kidney disease (CKD), stage IV (severe) N18.4 [employer], [facility] [address] [facility] [place] [address] 03/03/2024 ZABRINA JARRETT Bilateral hydronephrosis N13.30 ; Ureteral stent present Z96.0 ; Recurrent UTI N39.0 ; History of urinary retention Z87.898 and Chronic kidney disease (CKD), stage IV (severe) N18.4 [place], [facility] [address] [facility] [place] [address] 06/22/2024 MAEVE KAUR Bilateral hydronephrosis N13.30 ; Ureteral stent present Z96.0 ; Recurrent UTI N39.0 ; History of urinary retention Z87.898 and Chronic kidney disease (CKD), stage IV (severe) N18.4 [facility] [address] [facility] [place] [address] 09/09/2024 Rosalino Pevril Bilateral hydronephrosis N13.30 ; Ureteral stent present Z96.0 ; Recurrent UTI N39.0 ; History of urinary retention Z87.898 and Chronic kidney disease (CKD), stage IV (severe) N18.4 [facility] [address] [facility] [place] [address] 10/31/2023 MAEVE KAUR [facility] [address] [facility] [place] [address] 11/20/2023 MAEVE KAUR [facility] [address] [facility] [place] [address] 11/27/2023 MAEVE KAUR [facility] [address] [facility] [place] [address] 11/29/2023 MAEVE KAUR [facility] [address] [facility] [place] [address] 12/10/2023 MAEVE KAUR [facility] [address] [facility] [place] [address] 12/12/2023 MAEVE KAUR [facility] [address] [facility] [place] [address] 12/12/2023 MAEVE KAUR [facility] [address] [facility] [place] [address] 12/25/2023 Rosalino Simmons [facility] [address] [facility] [place] [address] 01/09/2024 MAEVE KAUR [facility] [address] [facility] [place] [address] 03/27/2024 MAEVE KAUR [facility] [address] [facility] [place] [address] 05/14/2024 MAEVE KAUR [facility] [address] [facility] [place] [address] 06/04/2024 MAEVE KAUR [facility], [facility] [address] [facility] [place] [address] 07/06/2024 [facility] Pre-op testing Z01.8 18 ; CKD (chronic kidney disease) N18.9 ; Primary hypertension I10 ; Type 2 diabetes mellitus with unspecified complications E11.8 ; Ureteral stent present Z96.0 and Malignant neoplasm of urinary bladder, unspecified site C67.9 [facility], [facility] [address] [facility] [place] [address] 07/08/2024 [facility] Ureteral stent prese nt Z96.0 and Bilateral hydronephrosis N13.30 [facility] [address] [facility] [place] [address] 07/08/2024 [facility], [facility] [address] [facility] [place] [address] 07/09/2024 Rosalino Pevril [facility], [facility] [address] [facility] [address] [facility] [place] [address] 09/09/2024 [facility] Bilateral hydronephrosis N13.30 [facility], [facility] [address] [facility] [place] [address] 09/14/2024 Rosalino Pevril [facility] [address] [facility] [place] [address] 09/14/2024 [facility] CKD (chronic kidney disease) N18.9 ; Ureteral stent present Z96.0 ; Type 2 diabetes mellitus with unspecified complications E11.8 and Preop testing Z01.818 [facility], [facility] [address] [facility] [place] [address] 09/14/2024 MAEVE HOOKSER Assessments Encounter Date Diagnosis (ICD Code) Assessment Notes Treatment Notes Treatment Clinical Notes Section Notes 09/14/2024 CKD (chronic kidney disease) (ICD-10 - N18.9) 07/08/2024 Ureteral stent present (ICD-10 - Z96.0) 07/06/2024 Pre-op testing (ICD-10 - Z01.818) 06/22/2024 Bilateral hydronephrosis (ICD-10 - N13.30) 69 y/o f with rUTIs. Bilateral hydronephrosis managed with chronic stents. Stents last exchanged in Mar 2024. Discussed Bilateral stent exchange. I explained how the procedure is performed along with risks/benefits/a lternatives and postprocedural expectations. Will schedule next available. RTC post op. Plan: -schedule next available cysto with bilateral stent exchange at main OR - RTC post op. IVictoria Scribe, am scribing for, and in the presence of, Dr. Kaur. I, Dr. Maeve Kaur, personally performed the services prescribed in this documentation, as scribed by Victoria Milton, in my presence, and it is both accurate and complete. 11/18/2023 Ureteral stent present (ICD-10 - Z96.0) 68-yo female with bilateral ureteral stents last exchanged on 11/02, rUTIs, CKD, atrophic L kidney. YASMEEN today shows no hydro. UA is abnormal today. She is asymptomatic. We will sent referrals to Infectious disease in [place] for rUTIs, along with a warehouse processor for CKD 4 in [place]. She will return in 2 months for symptom reassessment with UA/PVR or sooner with any concerns. Plan: -Referral sent to Infectious disease in [place] -Referral sent to [facility] for CKD in [place] -RTC in 2months with UA/PVR and discuss bilateral stent exchange - RTC or call sooner with any concerns IVictoria Scribe, am scribing for, and in the presence of, Dr. Kaur. I, Dr. Maeve Kaur, personally performed the services prescribed in this documentation, as scribed by Victoria Milton, in my presence, and it is both accurate and complete. 10/15/2023 Ureteral stent present (ICD-10 - Z96.0) UA still appears improved from previous hospital visit and previous clinic visit. PVR 12ml. She does not wish to have catheter replaced. YASMEEN reviewed today that appears to have improved hydro to the left, but still mild hydronephrosis seen to the L. I reviewed KUB that appears to have appropriate stent placement from recent exchange. I have reiterated the importance of voiding every 3 hours and trying to double void. She will continue with every other day flomax as she has been doing. She will RTC in 4-6 weeks with repeat YASMEEN, UA/PVR with Dr. Kaur, or sooner with any new or worsened symptoms. For now, and through shared decision making we are in agreement with no further workup or intervention at this time, aside from what has been mentioned. Vitals are stable and patient is currently asymptomatic. He will call back if further issues. All questions that were asked, were answered. Patient satisfied with plan. I saw this patient today following the plan of care established by Dr. Kaur. Supervision in the clinic, during the encounter was performed by the Doctor. 09/09/2024 Bilateral hydronephrosis (ICD-10 - N13.30) 69 y/o f with rUTIs. Previously diagnosed Bilateral hydronephrosis managed with chronic stents. Stents last exchanged in Mar 2024 and again on 06/2024. I reviewed todays KUB/YASMEEN images independently, as well as radiology report. In the exam room I discussed with the patient and shown imaging to the patient that stents appear in proper placement with minimal L hydro seen. Discussed case with Dr. Kaur. Discussed Bilateral stent exchange. I explained how the procedure is performed along with risks/benefits/a lternatives and postprocedural expectations. Will schedule next available. RTC post op. Plan: -schedule next available cysto with bilateral stent exchange at main OR - RTC post op. 09/09/2024 Bilateral hydronephrosis (ICD-10 - N13.30) 01/30/2024 Ureteral stent present (ICD-10 - Z96.0) [...] 1m with UA/PVR and see Zabrina Finch INTERMEDIATE CARD TENDER -She will need bilateral stent exchange in 2 months IVictoria Scribe, am scribing for, and in the presence of, Dr. Kaur. I, Dr. Maeve Kaur, personally performed the services prescribed in this documentation, as scribed by Victoria Milton, in my presence, and it is both accurate and complete. 03/03/2024 Bilateral hydronephrosis (ICD-10 - N13.30) Managed with chronic indwelling ureteral stents. She will be due for exchange in March. How procedure is performed was reviewed along with risks, benefits, alternatives, and postprocedural expectations. All questions were sought and answered to pt satisfaction and pt is agreeable to proceed. Will schedule accordingly. 01/30/2024 Recurrent UTI (ICD-10 - N39.0) 68-yo female with bilateral ureteral stents last exchanged on 12/26, rUTIs, CKD, atrophic L kidney. Stable at this time and and will continue with chronic stents. She will return in 1m for symptom reassessment with UA/PVR and see Zabrina Finch, NICOLE. Return sooner with any concerns Plan: - RTC in 1m with UA/PVR and see Zabrina Finch INTERMEDIATE CARD TENDER -She will need bilateral stent exchange in 2 months IVictoria Scribe, am scribing for, and in the presence of, Dr. Kaur. I, Dr. Maeve Kaur, personally performed the services prescribed in this documentation, as scribed by Victoria Milton, in my presence, and it is both accurate and complete. 03/03/2024 Ureteral stent present (ICD-10 - Z96.0) 03/03/2024 Recurrent UTI (ICD-10 - N39.0) Pt following with Dr. Monge for rUTIs. Asymptomatic bacteruria today. She has h/o recurrent c.diff and with known colonization and asymptomatic nature today, will not treat. She will notify Dr. Monge our office with any symptom development. 09/09/2024 Ureteral stent present (ICD-10 - Z96.0) 69 y/o f with rUTIs. Previously diagnosed Bilateral hydronephrosis managed with chronic stents. Stents last exchanged in Mar 2024 and again on 06/2024. I reviewed todays KUB/YASMEEN images independently, as well as radiology report. In the exam room I discussed with the patient and shown imaging to the patient that stents appear in proper placement with minimal L hydro seen. Discussed case with Dr. Kaur. Discussed Bilateral stent exchange. I explained how the procedure is performed along with risks/benefits/a lternatives and postprocedural expectations. Will schedule next available. RTC post op. Plan: -schedule next available cysto with bilateral stent exchange at [facility] OR - RTC post op. 10/15/2023 History of urinary retention (ICD-10 - Z87.898) UA still appears improved from previous hospital visit and previous clinic visit. PVR 12ml. She does not wish to have catheter replaced. YASMEEN reviewed today that appears to have improved hydro to the left, but still mild hydronephrosis seen to the L. I reviewed KUB that appears to have appropriate stent placement from recent exchange. I have reiterated the importance of voiding every 3 hours and trying to double void. She will continue with every other day flomax as she has been doing. She will RTC in 4-6 weeks with repeat YASMEEN, UA/PVR with Dr. Kaur, or sooner with any new or worsened symptoms. For now, and through shared decision making we are in agreement with no further workup or intervention at this time, aside from what has been mentioned. Vitals are stable and patient is currently asymptomatic. He will call back if further issues. All questions that were asked, were answered. Patient satisfied with plan. I saw this patient today following the plan of care established by Dr. Kaur. Supervision in the clinic, during the encounter was performed by the Doctor. 10/15/2023 Recurrent UTI (ICD-10 - N39.0) UA still appears improved from previous hospital visit and previous clinic visit. PVR 12ml. She does not wish to have catheter replaced. YASMEEN reviewed today that appears to have improved hydro to the left, but still mild hydronephrosis seen to the L. I reviewed KUB that appears to have appropriate stent placement from recent exchange. I have reiterated the importance of voiding every 3 hours and trying to double void. She will continue with every other day flomax as she has been doing. She will RTC in 4-6 weeks with repeat YASMEEN, UA/PVR with Dr. Kaur, or sooner with any new or worsened symptoms. For now, and through shared decision making we are in agreement with no further workup or intervention at this time, aside from what has been mentioned. Vitals are stable and patient is currently asymptomatic. He will call back if further issues. All questions that were asked, were answered. Patient satisfied with plan. I saw this patient today following the plan of care established by Dr. Kaur. Supervision in the clinic, during the encounter was performed by the Doctor. 11/18/2023 History of urinary retention (ICD-10 - Z87.898) 68-yo female with bilateral ureteral stents last exchanged on 11/02, rUTIs, CKD, atrophic L kidney. YASMEEN today shows no hydro. UA is abnormal today. She is asymptomatic. We will sent referrals to Infectious disease in [place] for rUTIs, along with a warehouse processor for CKD 4 in [place]. She will return in 2 months for symptom reassessment with UA/PVR or sooner with any concerns. Plan: -Referral sent to Infectious disease in [place] -Referral sent to [facility] for CKD in [place] -RTC in 2months with UA/PVR and discuss bilateral stent exchange - RTC or call sooner with any concerns IVictoria Scribe, am scribing for, and in the presence of, Dr. Kaur. I, Dr. Maeve Kaur, personally performed the services prescribed in this documentation, as scribed by Victoria Milton, in my presence, and it is both accurate and complete. 11/18/2023 Recurrent UTI (ICD-10 - N39.0) 68-yo female with bilateral ureteral stents last exchanged on 11/02, rUTIs, CKD, atrophic L kidney. YASMEEN today shows no hydro. UA is abnormal today. She is asymptomatic. We will sent referrals to Infectious disease in [place] for rUTIs, along with a warehouse processor for CKD 4 in [place]. She will return in 2 months for symptom reassessment with UA/PVR or sooner with any concerns. Plan: -Referral sent to Infectious disease in [place] -Referral sent to [facility] for CKD in [place] -RTC in 2months with UA/PVR and discuss bilateral stent exchange - RTC or call sooner with any concerns Victoria Latif Scribe, am scribing for, and in the presence of, Dr. Kaur. I, Dr. Maeve Kaur, personally performed the services prescribed in this documentation, as scribed by Victoria Milton, in my presence, and it is both accurate and complete. 06/22/2024 Ureteral stent present (ICD-10 - Z96.0) 69 y/o f with rUTIs. Bilateral hydronephrosis managed with chronic stents. Stents last exchanged in Mar 2024. Discussed Bilateral stent exchange. I explained how the procedure is performed along with risks/benefits/a lternatives and postprocedural expectations. Will schedule next available. RTC post op. Plan: -schedule next available cysto with bilateral stent exchange at main OR - RTC post op. Victoria Latif Scribe am scribing for, and in the presence of, Dr. Kaur. I, Dr. Maeve Kaur, personally performed the services prescribed in this documentation, as scribed by Victoria Milton, in my presence, and it is both accurate and complete. 07/06/2024 CKD (chronic kidney disease) (ICD-10 - N18.9) 07/08/2024 Bilateral hydronephrosis (ICD-10 - N13.30) 09/14/2024 Ureteral stent present (ICD-10 - Z96.0) 09/14/2024 Type 2 diabetes mellitus with unspecified complications (ICD-10 - E11.8) 06/22/2024 Recurrent UTI (ICD-10 - N39.0) 69 y/o f with rUTIs. Bilateral hydronephrosis managed with chronic stents. Stents last exchanged in Mar 2024. Discussed Bilateral stent exchange. I explained how the procedure is performed along with risks/benefits/a lternatives and postprocedural expectations. Will schedule next available. RTC post op. Plan: -schedule next available cysto with bilateral stent exchange at main OR - RTC post op. Victoria Latif Scribe am scribing for, and in the presence of, Dr. Kaur. I, Dr. Maeve Kaur, personally performed the services prescribed in this documentation, as scribed by Victoria Milton, in my presence, and it is both accurate and complete. 11/18/2023 History of hydronephrosis (ICD-10 - Z87.448) 68-yo female with bilateral ureteral stents last exchanged on 11/02, rUTIs, CKD, atrophic L kidney. YASMEEN today shows no hydro. UA is abnormal today. She is asymptomatic. We will sent referrals to Infectious disease in [place] for rUTIs, along with a warehouse processor for CKD 4 in [place]. She will return in 2 months for symptom reassessment with UA/PVR or sooner with any concerns. Plan: -Referral sent to Infectious disease in [place] -Referral sent to [facility] Statistician for CKD in [place] -RTC in 2months with UA/PVR and discuss bilateral stent exchange - RTC or call sooner with any concerns IVictoria Scribe, am scribing for, and in the presence of, Dr. Kaur. I, Dr. Maeve Kaur, personally performed the services prescribed in this documentation, as scribed by Victoria Milton, in my presence, and it is both accurate and complete. 07/06/2024 Primary hypertension (ICD-10 - I10) 10/15/2023 History of hydronephrosis (ICD-10 - Z87.448) UA still appears improved from previous hospital visit and previous clinic visit. PVR 12ml. She does not wish to have catheter replaced. YASMEEN reviewed today that appears to have improved hydro to the left, but still mild hydronephrosis seen to the L. I reviewed KUB that appears to have appropriate stent placement from recent exchange. I have reiterated the importance of voiding every 3 hours and trying to double void. She will continue with every other day flomax as she has been doing. She will RTC in 4-6 weeks with repeat YASMEEN, UA/PVR with Dr. Kaur, or sooner with any new or worsened symptoms. For now, and through shared decision making we are in agreement with no further workup or intervention at this time, aside from what has been mentioned. Vitals are stable and patient is currently asymptomatic. He will call back if further issues. All questions that were asked, were answered. Patient satisfied with plan. I saw this patient today following the plan of care established by Dr. Kaur. Supervision in the clinic, during the encounter was performed by the Doctor. 09/09/2024 Recurrent UTI (ICD-10 - N39.0) 69 y/o f with rUTIs. Previously diagnosed Bilateral hydronephrosis managed with chronic stents. Stents last exchanged in Mar 2024 and again on 06/2024. I reviewed todays KUB/YASMEEN images independently, as well as radiology report. In the exam room I discussed with the patient and shown imaging to the patient that stents appear in proper placement with minimal L hydro seen. Discussed case with Dr. Kaur. Discussed Bilateral stent exchange. I explained how the procedure is performed along with risks/benefits/a lternatives and postprocedural expectations. Will schedule next available. RTC post op. Plan: -schedule next available cysto with bilateral stent exchange at main OR - RTC post op. 03/03/2024 History of urinary retention (ICD-10 - Z87.898) 01/30/2024 History of urinary retention (ICD-10 - [...] 1m with UA/PVR and see Zabrina Finch INTERMEDIATE CARD TENDER -She will need bilateral stent exchange in 2 months IVictoria Scribe, am scribing for, and in the presence of, Dr. Kaur. I, Dr. Maeve Kaur, personally performed the services prescribed in this documentation, as scribed by Victoria Milton, in my presence, and it is both accurate and complete. 03/03/2024 Chronic kidney disease (CKD), stage IV (severe) (ICD-10 - N18.4) 01/30/2024 History of hydronephrosis (ICD-10 - Z87.448) 68-yo female with bilateral ureteral stents last exchanged on 12/26, rUTIs, CKD, atrophic L kidney. Stable at this time and and will continue with chronic stents. She will return in 1m for symptom reassessment with UA/PVR and see Zabrina Finch, INTERMEDIATE CARD TENDER. Return sooner with any concerns Plan: - RTC in 1m with UA/PVR and see Zabrina Finch APRN -She will need bilateral stent exchange in 2 months Victoria Latif Scribe, am scribing for, and in the presence of, Dr. Kaur. I, Dr. Maeve Kaur, personally performed the services prescribed in this documentation, as scribed by Victoria Milton, in my presence, and it is both accurate and complete. 09/09/2024 History of urinary retention (ICD-10 - Z87.898) 69 y/o f with rUTIs. Previously diagnosed Bilateral hydronephrosis managed with chronic stents. Stents last exchanged in Mar 2024 and again on 06/2024. I reviewed todays KUB/YASMEEN images independently, as well as radiology report. In the exam room I discussed with the patient and shown imaging to the patient that stents appear in proper placement with minimal L hydro seen. Discussed case with Dr. Kaur. Discussed Bilateral stent exchange. I explained how the procedure is performed along with risks/benefits/a lternatives and postprocedural expectations. Will schedule next available. RTC post op. Plan: -schedule next available cysto with bilateral stent exchange at main OR - RTC post op. 10/15/2023 Hydronephrosis (ICD-10 - N13.30) UA still appears improved from previous hospital visit and previous clinic visit. PVR 12ml. She does not wish to have catheter replaced. YASMEEN reviewed today that appears to have improved hydro to the left, but still mild hydronephrosis seen to the L. I reviewed KUB that appears to have appropriate stent placement from recent exchange. I have reiterated the importance of voiding every 3 hours and trying to double void. She will continue with every other day flomax as she has been doing. She will RTC in 4-6 weeks with repeat YASMEEN, UA/PVR with Dr. Kaur, or sooner with any new or worsened symptoms. For now, and through shared decision making we are in agreement with no further workup or intervention at this time, aside from what has been mentioned. Vitals are stable and patient is currently asymptomatic. He will call back if further issues. All questions that were asked, were answered. Patient satisfied with plan. I saw this patient today following the plan of care established by Dr. Kaur. Supervision in the clinic, during the encounter was performed by the Doctor. 11/18/2023 Chronic kidney disease (CKD), stage IV (severe) (ICD-10 - N18.4) 68-yo female with bilateral ureteral stents last exchanged on 11/02, rUTIs, CKD, atrophic L kidney. YASMEEN today shows no hydro. UA is abnormal today. She is asymptomatic. We will sent referrals to Infectious disease in [place] for rUTIs, along with a warehouse processor for CKD 4 in [place]. She will return in 2 months for symptom reassessment with UA/PVR or sooner with any concerns. Plan: -Referral sent to Infectious disease in [place] -Referral sent to [facility] for CKD in [place] -RTC in 2months with UA/PVR and discuss bilateral stent exchange - RTC or call sooner with any concerns IVictoria, Hazel, am scribing for, and in the presence of, Dr. Kaur. I, Dr. Maeve Kaur, personally performed the services prescribed in this documentation, as scribed by Victoria Milton, in my presence, and it is both accurate and complete. 06/22/2024 History of urinary retention (ICD-10 - Z87.898) 69 y/o f with rUTIs. Bilateral hydronephrosis managed with chronic stents. Stents last exchanged in Mar 2024. Discussed Bilateral stent exchange. I explained how the procedure is performed along with risks/benefits/a lternatives and postprocedural expectations. Will schedule next available. RTC post op. Plan: -schedule next available cysto with bilateral stent exchange at main OR - RTC post op. Victoria Latif Scribe, am scribing for, and in the presence of, Dr. Kaur. I, Dr. Maeve Kaur, personally performed the services prescribed in this documentation, as scribed by Victoria Milton, in my presence, and it is both accurate and complete. 09/14/2024 Preop testing (ICD-10 - Z01.818) 07/06/2024 Type 2 diabetes mellitus with unspecified complications (ICD-10 - E11.8) 07/06/2024 Ureteral stent present (ICD-10 - Z96.0) 06/22/2024 Chronic kidney disease (CKD), stage IV (severe) (ICD-10 - N18.4) 69 y/o f with rUTIs. Bilateral hydronephrosis managed with chronic stents. Stents last exchanged in Mar 2024. Discussed Bilateral stent exchange. I explained how the procedure is performed along with risks/benefits/a lternatives and postprocedural expectations. Will schedule next available. RTC post op. Plan: -schedule next available cysto with bilateral stent exchange at main OR - RTC post op. Victoria Latif Scribe, am scribing for, and in the presence of, Dr. Kaur. I, Dr. Maeve Kaur, personally performed the services prescribed in this [...] symptom reassessment with UA/PVR and see Zabrina Finch, NICOLE. Return sooner with any concerns Plan: - RTC in 1m with UA/PVR and see Zabrina Finch INTERMEDIATE CARD TENDER -She will need bilateral stent exchange in 2 months IVictoria Scribe, am scribing for, and in the presence of, Dr. Kaur. I, Dr. Maeve Kaur, personally performed the services prescribed in this documentation, as scribed by Victoria Milton, in my presence, and it is both accurate and complete. 09/09/2024 Chronic kidney disease (CKD), stage IV (severe) (ICD-10 - N18.4) 69 y/o f with rUTIs. Previously diagnosed Bilateral hydronephrosis managed with chronic stents. Stents last exchanged in Mar 2024 and again on 06/2024. I reviewed todays KUB/YASMEEN images independently, as well as radiology report. In the exam room I discussed with the patient and shown imaging to the patient that stents appear in proper placement with minimal L hydro seen. Discussed case with Dr. Kaur. Discussed Bilateral stent exchange. I explained how the procedure is performed along with risks/benefits/a lternatives and postprocedural expectations. Will schedule next available. RTC post op. Plan: -schedule next available cysto with bilateral stent exchange at main OR - RTC post op. 07/06/2024 Malignant neoplasm of urinary bladder, unspecified site (ICD-10 - C67.9) 10/15/2023 Other UA still appears improved from previous hospital visit and previous clinic visit. PVR 12ml. She does not wish to have catheter replaced. YASMEEN reviewed today that appears to have improved hydro to the left, but still mild hydronephrosis seen to the L. I reviewed KUB that appears to have appropriate stent placement from recent exchange. I have reiterated the importance of voiding every 3 hours and trying to double void. She will continue with every other day flomax as she has been doing. She will RTC in 4-6 weeks with repeat YASMEEN, UA/PVR with Dr. Kaur, or sooner with any new or worsened symptoms. For now, and through shared decision making we are in agreement with no further workup or intervention at this time, aside from what has been mentioned. Vitals are stable and patient is currently asymptomatic. He will call back if further issues. All questions that were asked, were answered. Patient satisfied with plan. I saw this patient today following the plan of care established by Dr. Kaur. Supervision in the clinic, during the encounter was performed by the Doctor. Plan Of Treatment Pending Test Test Name Order Date KUB, X-Ray: Abdomen, Kidney, Urete r, bladder 09/09/2024 [id number] KUB, X-Ray: Abdomen, Kidney, Urete r, bladder 07/08/2024 Basic Metabolic Panel (8) [id number] 07/29/19 24 Renal Ultrasound YASMEEN 76253 07/12/2023 Renal Ultrasound YASMEEN 63042 07/29/2023 Renal Ultrasound YASMEEN 76613 07/04/2023 Basic Metabolic Panel 18877 05/21/2022 CBC w\ Auto Diff 46906 05/21/2022 Culture Urine Reflex--[id number] 05/21/2022 Electrocardiogram 12 Lead Tracing-47107 05/21/2022 BASIC METABOLIC PANEL (91079) 11/21/2022 Bladder Scan 10/15/2023 Bladder Scan 09/04/2023 [place] [id number] 06/19/19 24 Catheter Insertion-Routine 07/29/2023 Basic Metabolic Panel 09/04/2023 Basic Metabolic Panel 06/19/2023 Electrocardiogram, 12 Lead Tracing-08337 07/06/2024 Electrocardiogram, 12 Lead Tracing-08755 09/14/2024 US Renal w/bladder--24453 07/08/2024 US Renal--67205 10/15/2023 Next Appt Details Provider Name:MAEVE Emery, 09/22/2024 01:00:00 PM, [address] [place], [address], Insurance Providers Payer Name Payer Address Payer Phone Subscriber Number Group Number Insured Name Patient Relationship to Insured Coverage Start Date Coverage End Date [employer] Medicare Replacement [address] [address] [place], [place] [id number] Macey Brush Self - patient is the insured Medical (General) History Medical History History ICD Code Bladder cancer Thyroid dx Diabetes Hyperlipidemia Hypertension Arthritis Urosepsis Anemia urinary incontinence Hx pyelonephritis Hx gross heamturia Incomplete bladder emptying Stroke Surgical History Surgery Date(Month/Year) hysterectomy, total with bilateral salpi hung-oophorectomy (BSO) cholecystectomy bladder bx 06/05/22 port inserted and removed 2011 angioplasty 04/2023 Cysto/Bladder bx/fulguration of bleeders /stents 07/10/2023 Stent placement 11/03/2023 stent exchange 12/2023 Hospitalization History Reason Date(Month/Year) Stroke 05/11/24 10 day stay after Stent placement/infect ion, and rectal bleeding. 12/2023 cdiff, uti 11/02 Bladder bx/stents/fulguration 06/24/23 [facility] 2022 [facility] ER UTI inspired sepsi s 02/2022 see sx hx
--- OUTSIDE RECORDS SUMMARY | 2024-09-20 05:09 | XMS_ITS | Encounter Summary ---
Author Organization [employer] [facility] Address [address] [place] [address] Care Team Providers Care Data Analytics Specialist Name Role Phone Unavailable Primary Care Provider Unavailabl e Encounter Details Date Type Department Care Team (Latest Contact Info) Description 08/25/1999 Outpatient Historical [facility] ChaseSco[facility] edwarsd Akin NO ADDRESS ON FILE Type II or unspecified type diabetes mellitus without mention of complication, not stated as uncontrolled (Primary Dx) Social History Tobacco Use Types Packs/Day Years Used Date Smoking Tobacco: Never Assessed Comments Unknown Sex and Gender Information Value Date Recorded Sex Assigned at Not on file 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
--- OUTSIDE RECORDS SUMMARY | 2024-09-20 05:09 | XMS_ITS | Encounter Summary ---
Author Organization [employer] [facility] Address [address] [place] [address] Care Team Providers Care Curing Oven Attendant Name Role Phone Unavailable Primary Care Provider Unavailabl e Encounter Details Date Type Department Care Team (Latest Contact Info) Description 10/13/1999 Outpatient Historical [facility] Chasegrace Scooby H NO ADDRESS ON FILE Routine medical exam (Primary Dx); Screening for malignant neoplasm of the cervix; Obesity, unspecified; Type II or unspecified type diabetes mellitus without mention of complication, not stated as uncontrolled Social History Tobacco Use Types Packs/Day Years Used Date Smoking Tobacco: Never Assessed Comments Unknown Sex and Gender Information Value Date Recorded Sex Assigned at Not on file 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
--- OUTSIDE RECORDS SUMMARY | 2024-09-20 05:09 | XMS_ITS | Encounter Summary ---
Author Organization [employer] [facility] Address [address] [place] [address] Care Team Providers Care Customer Success Advocate Name Role Phone Unavailable Primary Care Provider Unavailabl e Encounter Details Date Type Department Care Team (Latest Contact Info) Description 07/01/2000 Outpatient Historical [facility] Chasegrace Scooby H NO ADDRESS ON FILE Type II or unspecified type diabetes mellitus without mention of complication, not stated as uncontrolled (Primary Dx); Unspecified hypothyroidism Social History Tobacco Use Types Packs/Day Years Used Date Smoking Tobacco: Never Assessed Comments Unknown Sex and Gender Information Value Date Recorded Sex Assigned at Not on file 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
--- OUTSIDE RECORDS SUMMARY | 2024-09-20 05:09 | XMS_ITS | Encounter Summary ---
Author Organization [employer] [facility] Address [address] [place] [address] Care Team Providers Care Whitesmith Name Role Phone Unavailable Primary Care Provider Unavailabl e Encounter Details Date Type Department Care Team (Latest Contact Info) Description 08/14/1999 Outpatient Historical [facility] Chase[facility] edwards Akin NO ADDRESS ON FILE Type II or unspecified type diabetes mellitus without mention of complication, not stated as uncontrolled (Primary Dx); Other specified menopausal and postmenopausal disorder; Goiter, unspecified Social History Tobacco Use Types Packs/Day Years Used Date Smoking Tobacco: Never Assessed Comments Unknown Sex and Gender Information Value Date Recorded Sex Assigned at Not on file 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
--- OUTSIDE RECORDS SUMMARY | 2024-09-20 05:09 | XMS_ITS | Data Portability ---
Author Organization [facility] Prem Manrique [facility] Address [address] [address] Care Team Providers Care Rib Puller Name Role Phone JENNIFERJUAN CARLOSCELIA Primary Care Provider Unavailabl e Assessment Encounter Date Assessment Date Assessment LastModified by Organization Details LastModified Time 06/25/2024 06/25/2024 had cerebral angiogram in May and the place in head was already blocked took her off the plavix, still on ASA. renal stent replacement probably in the next 2 weeks. 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 Procedures polysomno graphy, titration study (PROC) 2024 025 [facility], [address] [place], [address], 09/16/2024 11:47:37 Surgeries None recorded. Imaging None recorded. Medication Orders fluconazo le 150 mg tablet 2024 [facility], [address], [place], [address], 08/09/2024 05:01:52 mupirocin 2 % topical ointment 2024 [facility], [address], [place], [address], 07/26/2024 18:41:12 fluconazo le 150 mg tablet 2024 025 [facility], [address], [place], [address], 08/09/2024 05:01:52 Patient TargetsNo targets recorded. Patient Instructions Encounter Date Encounter Id Patient Instructions Last Modified By Organization Details Last Modified Time 07/26/2024 [id number] Needs to use wicking material for the skin folds [email or web address] Not available 07/26/2024 18:49:03 Reason for Referral None Reported. Results Created Date Observation Date Name Description Value Unit Range Abnormal Flag Note LastModifiedBy Organization Detail LastModifiedTime 07/18/1907/17/2024 HBA1C hemaglobin A1C 6.5 4.2-6. 5 Not Available [facility] [address] [facility] [address], [place], [address], 07/17/2024 10:17:13 07/28/1908/03/2024 CULTU RE, AEROB IC AND ANAER OBIC W/GRA M STAIN culture, anaerobic bacteria w/gram stain SEE NOTE CULTU RE, ANAER OBIC BACTE ULISSES W/GRA M STAIN Micro Numbe r: [id number] Test Statu s: Final Speci men Sourc e: Other (spec josh) Speci men Quali ty: Adequ ate Gram Stain : No white blood cells seen Many Gram posit daljit cocci in clust ers Resul t: No anaer obes isola ashley. Not Available [facility] [address] [place], [address], 08/03/2024 11:45:28 07/28/19 25 08/03/2024 CULTU RE, AEROB IC AND ANAER OBIC W/GRA M STAIN culture, aerobic bacteria SEE NOTE abnormal CULTU RE, AEROB IC BACTE ULISSES Micro Numbe r: [id number] Test Statu s: Final Speci men Sourc e: Leg, right Speci men Quali ty: Adequ ate Resul t: Heavy growt h of Methi cilli n resis tant Staph yloco ccus aureu s (MRSA ) Heavy growt h of Esche lefty a coli MRSA E.col i ----- ----- ----- - ----- ----- ----- - INT KAREEM INT KAREEM AMOX/ CLAVU LANAT E * R >=32 AMP/S ULBAC FULTON * R >=32 CEFAZ BAILEY * R >=64 1 CEFEP FOREIGN * S 0.5 CEFTA ZIDIM E * R >=64 CEFTR IAXON E * R >=64 CIPRO FLOXA HILTON R >=8 S <=0.0 6 CLIND AMYCI N R >=8 * ERYTH ROMYC IN R >=8 * GENTA MICIN S <=0.5 S <=1 IMIPE NEM * S 0.5 LEVOF LOXAC IN R >=8 S <=0.1 2 MEROP ENEM * S <=0.2 5 MOXIF LOXAC IN R 4 * OXACI LLIN R NR 2 * PIP/T AZOBA CTAM * R 64 TETRA CYCLI NE S 2 * TRIME THOPR IM/CHACON LFA S <=10 S <=20 VANCO MYCIN S <=0.5 * S = Susce ptibl e I = Inter media te R = Resis tant NS = Not susce ptibl e SDD = Susce ptibl e Dose Depen dent * = Not Teste d NR = Not Repor ashley NN = See Thera py Comme nts THERA PY COMME NTS Note 1: For infec tions other than uncom plica ashley UTI cause d by E. coli, K. pneum oniae or P. mirab ilis: Cefaz bailey is resis tant if KAREEM > or = 8 mcg/m L. (Dist ingui shing susce ptibl e versu s inter media te for isola kelsi with KAREEM < or = 4 mcg/m L requi res addit ional testi ng.) Note 2: Oxaci llin- resis tant staph yloco cci are resis tant to all curre ntly avail able beta- lacta m antim icrob ial agent s with the possi ble excep tion of cefta rolin e. Not Available [facility] [address] [place], [address], 08/03/2024 11:45:28 Result Notes None recorded. Problems Name Problem SNOMED Code Status Onset Date Resolution Date Notes Provider Name and Address Organization Details Recorded Time Benign essentia l hyperten reed 9748485 Active 2022 Sujatha goldberg [facility] 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 4 15:16:34 Malignan t lymphoma 478520505 Completed 202212/13/2022 JOANNA goldberg [facility] 3 15:15:13 Sleep apnea 94173957 Active 2023 JOANNA goldberg [facility] 4 15:31:49 Anemia 840524579 Active 2023 JOANNA goldberg [facility] 4 10:49:28 History of cerebrov ascular accident 085357778 Active 2023 JUDIE FISHER [facility] 4 15:16:29 History of malignan t lymphoma 294672340 Active 2023 [facility] 4 15:17:01 History of sepsis 71698902998 9100 Active 2023 urosepis 2021 again in 11/03/19 24 [facility] 4 11:01:34 Atrophy of left kidney 594090242 Active 2023 [facility] 4 15:27:13 Recurren t urinary tract infectio n 365744152 Active 2023 [facility] 4 15:27:23 Bilatera l hydronep hrosis 92668279 Active 2023 [facility] 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 e 54460225619 9101 Active 2023 JOANNA CÁRDENAS [facility], Mark 5 07:56:27 Cerebrov ascular accident 250326294 Active JOANNA GRANADOS CÁRDENAS [facility], Mark 5 11:00:49 Obstruct daljit sleep apnea of adult 16840814146 03 Active 2024 JOANNA DARWIN CÁRDENAS [facility], Mark 5 11:01:10 Hypothyr oidism 24718903 Active 2022 JUDIE PHILLIP [facility], Mark 4 15:16:49 Hypercho lesterol emia 31639074 Active 2022 JUDIE FISHER [facility], Mark 4 15:16:32 Problem Notes None recorded. Procedures Surgical History Date Name Laterality Status Provider Name and Address Organization Details Recorded Time 03/28/19 25 replacement of stent completed JOANNA CÁRDENAS [facility], [place] 04/09/2024 11:30:10 11/04/19 24 insertion of stent into ureter completed [facility], [place] 11/14/2023 11:01:07 05/21/19 24 Angioplasty completed Celia Louis MD [address] [place] [address], [address], [facility], Mark 10/01/2023 15:09:57 07/14/19 23 insertion of stent into ureter completed [facility], [place] 10/01/2023 15:26:11 06/06/19 23 insertion of stent into ureter completed [facility], [place] 10/01/2023 15:25:38 04/25/19 23 Pet image ltd area completed [facility], Mark 12/13/2022 15:15:41 09/01/19 22 colonoscopy completed [facility], [place] 12/20/2022 09:01:14 08/23/19 22 mammography completed [facility], NeoCJaelyn 12/20/2022 09:00:55 07/27/19 22 bone density scan completed [facility], Mark 11/19/2023 08:51:59 05/09/19 22 ophthalmic examination and evaluation completed [facility], Mark 12/20/2022 09:01:44 procedure on kidney completed [facility], NeoCJaelyn 10/17/2023 10:40:26 replacement of stent completed [facility], LJaelynLJaelynCJaelyn 04/09/2024 11:29:35 Hysterectomy completed [facility], NallelyLJaelynCJaelyn 12/13/2022 15:14:37 Cholecystectomy completed [facility], LJaelynLJaelynCJaelyn 12/13/2022 15:15:59 Episiotomy or vaginal repair completed [facility], L.LJaelynCJaelyn 12/13/2022 15:16:50 Imaging Results None recorded. Procedure Notes None recorded. Medical Equipment None Reported. Allergies Allergen ID Allergen Name Allergen Category Reaction Reaction Severity Criticality Documentation Date Start Date Code Code System Note Provider Name and Address Organization Details Recorded Time 6 Cipro medicatio n rash mild low 07/24/202271081 3 RxNorm [facility] [place] 09:19:10 2447 latex environme nt,medica tion rash mild low 07/24/2022 72945 91 RxNorm Sujatha goldberg, [facility], [place] 4 09:19:19 78869 Tegaderm medicatio n rash mild low 11/19/2023 31287 UNK Sujathakvng goldberg, [facility], [place] 4 09:19:28 Medications Name [...] Not Available atorvasta tin 40 mg tablet TAKE 1 TABLET EVERY DAY 2024 active Not Available Not Available Not Avai lable Unistik 2 Device kit two times daily [...] capsule TAKE 1 CAPSULE BY MOUTH EVERY 12 HOURS FOR 10 DAYS 07/23 completed Not Available Not Available Not Available Normal Saline Flush 0.9 % injection syringe 01/27 completed Not Available Not Available Not Available cefpodoxi me 200 mg tablet 08/07 completed Not Available Not Available Not Available fluconazo le 150 mg tablet Take 1 tablet every day by oral route for 10 days. 08/09 completed Not Available Not Available Not Available glyburide 2.5 mg tablet Take 1 tablet every day by oral route. 2024 active Not Available Not Available Not Avai lable metoprolo l succinate ER 50 mg tablet,ex tended release 24 hr TAKE 1 TABLET EVERY DAY 2024 active Not Available Not Available Not Avai lable hydrocodo ne 5 mg-acetam inophen 325 mg [...] DAILY IN THE MORNING FOR 5 DAYS 05/28 completed Not Available Not Available Not Available simvastat in 10 mg tablet 07/03 [...] completed Not Available Not Available Not Available Plavix 75 mg tablet Take 1 tablet every day by oral route. 06/25 completed Not Available Not Available Not Available [...] Not Available acetamino phen 500 mg tablet 05/28 completed Not Available Not Available Not Available vancomyci n 125 mg capsule TAKE 1 CAPSULE BY MOUTH EVERY 6 HOURS FOR 9 DAYS 05/28 completed Not Available Not Available Not Available levothyro xine 88 mcg tablet TAKE [...] BY MOUTH TWICE DAILY FOR 4 DAYS 05/28 completed Not Available Not Available Not Available fluconazo le 50 mg tablet 01/27 completed Not Available Not Available Not Available nystatin 100,000 unit/gram topical cream 05/28 completed Not Available Not Available Not Available [...] Not Available Not Available aspirin 81 mg chewable tablet Chew 1 tablet every day by oral route. active Not Available Not Available No t Available mupirocin 2 % topical ointment APPLY A SMALL AMOUNT OF OINTMENT TOPICALL Y TO AFFECTED AREA THREE TIMES DAILY active Not Available Not Available No t Available sodium chloride 0.9 % intraveno us [...] sulfate HFA 90 mcg/actua tion aerosol inhaler Inhale 2 puffs every 4 hours by inhalati on route. 05/28 completed Not Available Not Available Not Available colchicin e 0.6 mg tablet 06/29 completed Not Available Not Available Not Available ondansetr on 4 mg disintegr ating tablet Place 1 tablet 3 times a day by translin gual route as needed for 5 days. 02/20 completed Not Available Not Available Not Available cefdinir 300 mg capsule TAKE 1 CAPSULE BY MOUTH ONCE DAILY FOR 30 DAYS active Not Available Not Available No [...] completed Not Available Not Available Not Available Bactrim DS 800 mg-160 mg tablet Take 1 tablet every 12 hours by oral route for 7 days. 08/17 completed Not Available Not Available Not Available [...] glyburide two times daily 12/13 completed LB/ak; 44159; Recorded 05/03/19 3:57PM by Keyana Roper (Authori meryl through Celia Louis MD), Annotati on/Adden dum; Mail Order Quantity : 180 Tablet; Mail Order Days: 90 Days; Refill Quantity : 180; Tablet; Not Available Not Available Not Available metoprolo l succinate daily 12/13 completed LB/ak; 77200; Recorded 05/03/19 3:54PM by Keyana Roper (Authori meryl through Celia Louis MD), Refill Request; Refill Quantity : 90; Tablet; Not Available Not Available Not Available [facility] Levothyro xine Sodium daily 12/13 completed 06108; Recorded 05/03/19 3:53PM by Keyana Roper (i meryl through Celia Louis MD), Refill Request; Mail Order Quantity : 90 Tablet; Mail Order Days: 90 Days; Refill Quantity : 0; Not Available Not Available Not Available heparin, porcine (PF) 100 unit/mL intraveno us syringe 01/27 completed Not Available Not Available Not Available Januvia 100 mg tablet daily 12/13 completed 95561; Recorded 05/03/19 3:56PM by Keyana Roper (Henry sheth through Celia Louis MD), Annotati on/Adden dum; Mail Order Quantity [...] tablet twice a day by oral route. 06/25 completed Not Available Not Available Not Available Lactobaci llus acidophil us 500 million cell capsule 05/28 completed Not Available Not Available Not Available [facility] active Not Available Not Available Not Available Vitals Date Recorded Body height Body mass index (BMI) Body weight Body temperature Oxygen saturation Oxygen saturation in Arterial blood by Pulse oximetry Heart rate Systolic blood pressure Diastolic blood pressure Provider Name and Address Organization Details Last Updated DateTime 157.48 cm 40.4 kg/m2 100763. 91 g 98.7 [degF] 97 % 97 % 87 /min 128 mm[Hg] 80 mm[Hg] JUDIE FISHRE [facility], [facility]fin 5 11:28:02 Date Recorded Body height Body mass index (BMI) Body weight Body temperature Oxygen saturation Oxygen saturation in Arterial blood by Pulse oximetry Heart rate Systolic blood pressure Diastolic blood pressure Provider Name and Address Organization Details Last Updated DateTime 5 157.48 cm 41.5 kg/m2 712668. 47 g 97.2 [degF] 96 % 96 % 60 /min 140 mm[Hg] 70 mm[Hg] JOANNA CÁRDENAS [facility]LJaelynCJaelyn 5 11:04:41 Date Recorded Body height Body mass index (BMI) Body weight Body temperature Oxygen saturation Oxygen saturation in Arterial blood by Pulse oximetry Heart rate Systolic blood pressure Diastolic blood pressure Provider Name and Address Organization Details Last Updated DateTime 5 157.48 cm 40.2 kg/m2 49907.3 2 g 98.1 [degF] 96 % 96 % 71 /min 150 mm[Hg] 75 mm[Hg] JOANNA CÁRDENAS [facility] 5 16:19:52 Date Recorded Body height Body mass index (BMI) Body weight Body temperature Heart rate Oxygen saturation Oxygen saturation in Arterial blood by Pulse oximetry Systolic blood pressure Diastolic blood pressure Provider Name and Address Organization Details Last Updated DateTime 5 157.48 cm 40.4 kg/m2 411181. 91 g 98.2 [degF] 66 /min 99 % 99 % 142 mm[Hg] 74 mm[Hg] Rocio Edwards [facility] 5 17:58:33 Date Recorded Body height Body mass index (BMI) Body weight Body temperature Oxygen saturation Oxygen saturation in Arterial blood by Pulse oximetry Heart rate Systolic blood pressure Diastolic blood pressure Provider Name and Address Organization Details Last Updated DateTime 5 157.48 cm 40.2 kg/m2 00208.3 2 g 97.9 [degF] 97 % 97 % 62 /min 140 mm[Hg] 65 mm[Hg] JOANNA CÁRDENAS [facility].L.CJaelyn 5 14:35:14 Social History Question Answer Notes LastModified by Organizat ion Details LastModified Time Tobacco Smoking Status Never Smoker KEYANA ROPER [facility] 07/24/2022 16:30:02 What Was The Date Of Your Most Recent Tobacco Screening? 11/19/2023 [email or web address] Information not available 11/19/2023 Sex: Unknown Functional Status Question Answer Note LastModified by Organizat ion Details LastModified Time Do you use any illicit or recreational drugs? No [email or web address] Information not available 07/24/2022 What is your level of alcohol consumption? None [email or web address] Information not available 07/24/2022 Mental Status None recorded. Family History Relationship Description Onset Age of this Age Resolved Age Notes LastModified by Organization Details LastModified Time Mother Heart disease dad [email or web address] Not available 11/24 15:13:48 Mother Diabetes mellitus Not available 11/24 15:13:20 Medical History Condition Response Coronary Artery Disease N Other Y Gout N Kidney Stones N Blood Diseases N Hyperthyroidism N Breast Cancer N Blood Transfusion N Hypothyroidism Y Lung Disease N COPD N Depression N Defects or Inherited Disease N Developmental or Behavioral Disorders N Breast Problem N Difficulty Swallowing N Anesthesia Complications N Meniere's disease N Anxiety Disorder N Muscle, Joint, or Bone Problems N Vision or Eye Problems N Arthritis N Infertility N Polyps N Cancer Y Stroke Y Varicosities N Endometriosis N Bladder or Kidney Problems N High Cholesterol Y Liver Disease N Fibromyalgia N Headaches N Kidney Disease Y Allergies/Hayfever N Heart [...] split virus, quadrivalent, preservative 5 completed JOANNA CÁRDENAS [facility] 12/13/2022 15:09:21 COVID-19, mRNA, LNP-S, PF, 30 mcg/0.3 mL dose 1 completed JOANNA goldberg [facility] 12/13/2022 15:09:21 COVID-19, mRNA, LNP-S, PF, 30 mcg/0.3 mL dose 1 completed JOANNA goldberg [facility] 12/13/2022 15:09:21 Past Encounters Encounter ID Performer Location Encounter Start Date Encounter Closed Date Diagnosis/Indication Diagnosis SNOMED-CT Code Diagnosis ICD10 Code Diagnosis Note [id number] Celia Louis MD [facility] ([facility]) [address] [place] [phone] 5 07/24/2022 16:08:36 07/30/2022 14:50:02 Hypothyroidism 14055894 E03.9 Diabetes mellitus 219768 09 E11.9 They had stopped her dm meds due to low sugars in the hospital. I recommend restarting 1 glyburide daily. Keep checking sugars and let us know if they are increasein g. Hospital i npatient stay within past 30 days 7026865352 106 Z76.89 for UTI, completed cipro even though it made her hands swell and rash. have H&P but not d/c summary. [id number] Celia Louis MD [facility] ([facility]) [address] [place] [id number] 5 12/13/2022 15:05:38 12/13/2022 15:42:05 Gout 99520835 M10.9 exam not really consistent w gout but history is. [id number] MARGUERITE WARENR [facility] ([facility]) [address] [place] [address] [id number] 5 12/22/2022 11:37:13 12/22/2022 13:05:05 Acute gastroenteritis 06901676 K52.9 [id number] Celia Louis MD [facility] ([facility]) [address] [place] [id number] 5 12/24/2022 14:16:51 12/24/2022 15:24:29 Diarrhea 42101223 R19.7 check stool studies then start lomotil. Mild dehydration 1666725 119 108 E86.0 Pt was advised to drink something with calories for the next 2-5 days - at least 24 oz daily. She has been doing zero sugar 7up and Gatorade but needs some sugar and electolyte s. [id number] LORIE EAGLE PA-C [facility] ([facility]) [address] [place] [address] [id number] 5 12/25/2022 10:53:57 12/25/2022 16:50:30 Adult health examination 417643279 Z00.00 offered vaccines today Prevnar 20 and flu and she declined due to diarrhea. Diabetes mellitus 936398 09 E11.9 Hypothyroidism 50213826 E03.9 Screening mammography 24 764908 Z12.31 Urinary incontinence [address] Simmons History of malignant lymphoma 745871197 Z85.72 2001 and 2010 IN remission. no longer follows with oncology. [id number] Celia Louis MD [facility] ([facility]) [address] [place] [id number] 5 02/20/2023 10:44:03 02/20/2023 15:52:05 Benign essential hypertension 0828590 I10 Type 2 marla betes mellitus 13359864 E11.9 Anemia 567406047 D64.9 Fatigue 12726084 R53.83 Foot callus 064677279 L8 4 soak, pumice, moisturize . she used to see but they are now out of her network. [id number] Celia Louis MD [facility] ([facility]) [address] [place] [address] [id number] 5 04/18/2023 14:08:57 04/18/2023 15:19:13 History of malignant neoplasm of bladder 875619625 Z85.51 History of non-Hodgkins lymphoma 641189008 Z85.72 Type 2 marla betes mellitus 52891114 E11.9 Morbid obesity 964698730 E66.01 Hypothyroidism 87727012 E03.9 Hyperlipidemia 78805545 E78.5 they took away her simvastati n, they put her on atorvastat in 40mg. Essential hypertension 88829124 I10 Disorder o f carotid artery 740702817 I77.9 very severe plaque in distal bilateral ICA's left greater than right. Serum iron below reference range 593130777 R79.0 History of transient ischemic attack 792698381 Z86.73 Hospital i npatient stay within past 30 days 1460806742 106 Z76.89 [id number] Celia Louis MD [facility] ([facility]) [address] [place] [address] [id number] 5 05/14/2023 10:20:21 05/15/2023 09:17:34 Acute urinary tract infection 982605233 N39.0 [id number] Celia Louis MD [facility] ([facility]) [address] [place] [address] [id number] 5 07/04/2023 14:00:10 07/04/2023 15:50:07 Hospital inpatient stay within past 30 days 1065546176 106 Z76.89 for pyelonephr itis with acute on chronic renal insufficie ncy. Still has a catheter.u rine is clear yellow. she seems to be well hydrated currently. keep f/u with urology on Saturday. 07/04/23 [id number] Celia Loius MD [facility] ([facility]) [address] [place] [address] [id number] 5 08/08/2023 09:53:22 08/08/2023 13:09:59 Benign essential hypertension 8678524 I10 she only had the one wrist-cuff BP elevation. My nurse will call [facility] and ask them to not use a wrist cuff. 08/06/23. Recurrent urinary tract infection 130123404 N39.0 her u/a was positive. My nurse called Urology to report the u/a results and they said they would be handling the abx. We requested that [facility] send results to urology since they are managing her catheter. [id number] Celia Louis MD [facility] ([facility]) [address] [place] [address] [id number] 5 08/15/2023 09:38:24 08/15/2023 10:22:12 Benign essential hypertension 8687182 I10 she only had the one wrist-cuff BP elevation. My nurse will call [facility] and ask them to not use a wrist cuff. 08/06/23. Diabetes mellitus 900708 09 E11.9 They had stopped her dm meds due to low sugars in the hospital. I recommend restarting 1 glyburide daily. Keep checking sugars and let us know if they are increasein g. Hypothyroidism 37622327 E03.9 [id number] Celia Louis MD [facility] ([facility]) [address] [place] [address] [id number] 5 08/21/2023 10:24:17 08/21/2023 12:26:06 Benign essential hypertension 5673192 I10 controlled Diabetes mellitus 818457 09 E11.9 she is not too happy with the 7.0 A1C, her glyburide was decreased due to low sugars. she still stays a little low cause she doesnt like to eat lunch. for now we will cont the 2.5mg and monitor. 08/21/23 Hypercholesterolemia 136 90369 E78.00 she changed from simvastati n to atorvastat in and wondered if there was a difference in her lipids - trend overall looks the same. 08/21/23 Hypothyroidism 36436301 E03.9 tsh wnl. Anemia 440149541 D64.9 on iron BID since dx. recheck labs 08/21/23 Recurrent urinary tract infection 347150832 N39.0 her u/a was positive. My nurse called Urology to report the u/a results and they said they would be handling the abx. We requested that [facility] send results to urology since they are managing her catheter. 08/08/23 pt says she never got an antibiotic .she had an u/s done on her kidneyshe goes back to see in a couple weeks. she still has the catheter. she is not having symptoms of uti.I'm not sure why urology would not have start abx. we will call then to inquire. 08/21/23 [id number] Celia Louis MD [facility] ([facility]) [address] [place] [address] [phone] 5 10/01/2023 10:35:38 10/01/2023 15:48:16 Anemia 338139541 D64.9 on iron BID since dx Mar 2023. iron levels have been wnl. hx of lymphoma. I suspect it is secondary to chronic illness and all she [facility] but I discussed my concern with her that it could be something more ominous. recheck hg today. if not improved then cosider heme/onc referral. 10/01/23 History of cerebrovascular accident [id number] Z86.Mar, underwent ICA angioplast y in Apr 2023. [id number] Celia Louis MD [facility] ([facility]) [address] [place] [address] [phone] 5 10/17/2023 10:30:50 10/17/2023 12:03:40 Acute upper respiratory infection 41379572 J06.9 Dr. Clarke is no longer here [...] contact us with any breathing issues. 10/17/23 [id number] Celia Louis MD [facility] ([facility]) [address] [place] [address] [phone] 5 11/14/2023 10:52:14 11/18/2023 18:46:49 History of sepsis 4296287509 30704 Z86.19 Acute pyelonephritis 366 05702 N10 recent hospitaliz zation for stents replaced. 11/14/23 Clostridiu m difficile colitis 804912903 A04.72 resolved. consider trial of probiotic. she has been on so many abx in the last 5 mo. 11/14/23 Hospital i npatient stay within past 30 days [id number] 106 Z76.89 Pyelonephr itis, CDiff, urosepsis. Right ureter stent placed on 11/03/2023. ...11/14/23 Hyperlipidemia 91514407 E78.5 they took away her simvastati n, they put her on atorvastat in 40mg. Diabetes mellitus 485594 09 E11.9 sugars are elevated outside the hospital most >150. restart 2.5 mg glyburide. keep checking sugars 11/14/23 Multiple n odules of lung 899041124 R91.8 she had a pet scan in May with [facility] - no cancer. no difference in the nodules [facility], with this recent hospitaliz ation she had a repeat CT scan that showed nodular growth from September to now (13-22mm), also recent cavitation of the lesions. she needs pulmonary f/u ([facility] is gone so new referral placed). [id number] MARGUERITE TRINH [facility] ([facility]) [address] [place] [address] [phone] 5 11/19/2023 09:13:55 11/19/2023 10:06:08 Adult health examination 526847757 Z00.00 Screening for osteoporosis 177483598 Z13.820 Screening mammography 24 412523 Z12.31 [id number] Kwaku Yeboah DO [facility] ([facility]) [address] [place] [address] [phone] 5 01/07/2024 08:09:30 01/07/2024 16:58:08 Benign essential hypertension 5834135 I10 Hospital i npatient stay within past 30 days 4451405764 106 Z76.89 Chronic ki dney disease stage 3 851066505 N18.30 Type 2 maral betes mellitus 98168350 E11.9 [id number] Kwaku Yeboah DO [facility] ([facility]) [address] [place] [address] [phone] 5 01/16/2024 09:01:31 01/16/2024 17:28:47 Benign essential hypertension 1804731 I10 History of sepsis 926511 2967 74601 Z86.19 Anemia 065127490 D64.9 [id number] Hardik Eagle MD [facility] ([facility]) [address] [place] [address] [phone] 5 01/28/2024 13:35:10 01/28/2024 14:50:20 Acute gastrointestinal hemorrhage 79197257 K92.2 has a history of iron infusion.n o transfusio n nor endoscopy was performed. was suspected to have diverticul ar bleeding.w ill refer for endoscopys he prefers to go to [facility] so her care can be most helpfully coordinate d. History of Intestinal infection caused by Clostridioides difficile 1832092117 81154 Z86.19 Open wound of skin 07360 98595 01 T14.8XXA Candidiasis of skin 4988 3006 B37.2 [id number] Ceila Louis MD [facility] ([facility]) [address] [place] [address] 04/09/2024 10:40:07 04/09/2024 13:00:12 Hospital inpatient stay within past 30 days [id number] 106 Z76.89 bilateral renal stents replaced. 04/09/2024 Essential hypertension 87696178 I10 yesterday increased from lisinopril nephrologi st. 04/09/2024 Cerebrovas cular accident 562434221 I63.9 thats the doctor that wont return calls. thinks she in noncomplie nt.MRA in september and seem to think there is another blockage in the brains.Dr. Kearns at [facility] .records request Dr. Kearns... Once we have records perhaps we can refer to different neurosurge on in [place] as they would like to centralize all her care to 1 location. 04/09/2024 Obstructiv e sleep apnea of adult 6046263220 103 G47.33 They state they need an order from me to adjust her CPAP settings according to her recent sleep study. We do not have any records of this recent sleep study. Typically the titration is done through the service providing the CPAP machine. We will try to obtain records from [facility] 04/09/2024 Type 2 marla betes mellitus 29547763 E11.9 The patient felt that her sugars have not been well-contr olled lately and thought that her numbers would be bad. However [facility] reports an hemoglobin A1c of 6.2 done 03/28/2024. 04/09/24 [id number] Celia Louis MD [facility] ([facility]) [address] [place] [address] [phone] 5 04/15/2024 15:43:37 04/15/2024 17:08:36 Obstructive sleep apnea syndrome 40736600 G47.33 We are awaiting records of her recent sleep study from [facility] so that we can inform [facility] and they can adjust her CPAP settings. Pre-surger y evaluation 072130555 Z01.818 Pt is at slightly above average risk for surgical procedures but has not major contraindi cations to cataract surgery at this time. ACS NSQIP done. letter composed and sent to . 04/15/24 [id number] Celia Louis MD [facility] ([facility]) [address] [place] [address] [phone] 5 04/15/2024 15:26:12 04/16/2024 09:59:31 Chronic kidney disease stage 3 821106360 N18.32 Hypocalcemia 7419648 E83 .51 Anemia 890080046 D63.1 on iron BID since dx Mar 2023. iron levels have been wnl. hx of lymphoma. I suspect it is secondary to chronic illness and all she has been through recently with hospitaliz ations.... but I discussed my concern with her that it could be something more ominous. recheck hg today. if not improved then cosider heme/onc referral. 10/01/23 Type 2 marla betes mellitus without complication 579799678 E11.9 [id number] Celia Louis MD [facility] ([facility]) [address] [place] [address] [phone] 5 04/27/2024 11:07:49 04/28/2024 16:40:43 COVID-19 208643118 U07.1 on home oxygen. satting 94%. 04/27/24 Hospital i npatient stay within past 30 days 8373467225 106 Z76.89 Admitted overnight for Flu A and Covid on 04/21/2024 at [facility]. Influenza caused by Influenza A virus 849528610 J09.X2 received tamiflu. 04/27/24 [id number] Celia Louis MD [facility] ([facility]) [address] [place] [address] 05/28/2024 11:18:27 06/10/2024 13:49:40 Hospital inpatient stay within past 30 days [id number] 106 Z76.89 Admitted 8 or 9 days, beginning on 05/11. Called for discharge summary. 05/28/2024 Cerebrovas cular accident 450490546 I63.9 05/11 hospitaliz ed. Has follow-up appointmen ts with neurology and neurosurge ry. There had been discussion of changing to neurosurge ry in [place] but since she was already establishe d with the one in [facility] they have an appointmen t with him. Also last time we discussed switching to [place] I believe her daughter said that she had benefits through the end of the year in [place] and they would stay more local until that ran out. 05/28/2024 Hemiplegia and/or hemiparesis following stroke 8723142593 9107 I69.359 does not have use of her right arm. Getting home PT set up 05/28/2024 Diabetes mellitus 831281 09 E11.9 sugars are elevated outside the hospital most >150. restart 2.5 mg glyburide. keep checking sugars . 11/14/23. A1C was 6.2% on 03/28/24, during this hospitaliz ation it was 9.6% on 05/12/24 - she had a recent course of steroids for bronchioli tis. pt will do fasting sugars for 2 weeks and call us with list in 2 weeks. 05/28/24 [id number] Celia Louis MD [facility] ([facility]) [address] [place] [address] [phone] 5 06/25/2024 10:55:39 06/25/2024 12:08:12 Cerebrovascular accident 534772517 I63.9 05/11 hospitaliz ed. Has follow-up appointmen ts with neurology and neurosurge ry. There had been discussion of changing to neurosurge ry in [place] but since she was already establishe d with the one in [facility] they have an appointmen t with him. Also last time we discussed switching to [place] I believe her daughter said that she had benefits through the end of the year in [place] and they would stay more local until that ran out. 05/28/2024 Obstructiv e sleep apnea of adult 7606126635 103 G47.33 They state they need an order from me to adjust her CPAP settings according to her recent sleep study. We do not have any records of this recent sleep study. Typically the titration is done through the service providing the CPAP machine. We will try to obtain records from [facility] 04/09/2024 Nursing contacted and spoke with [facility] medical records - they have no indication of a sleep study result.... . After speaking with the patient and her daughter it sounds like she just had an overnight pulse ox done in the hospital. This would explain why we do not have an official report for her CPAP titration study. We will get her set up for an official titration study. 06/25/2024 Type 2 marla surendra mellitus 32662174 E11.9 The patient felt that her sugars have not been well-contr olled lately and thought that her numbers would be bad. However [facility] reports an hemoglobin A1c of 6.2 done 03/28/2024.. ..04/09/24 her A[facility]C at [facility] 9 [facility] but pt had recently had steroids. We will check today to see to see if it is trending down. 06/25/2024 [id number] Celia Louis MD [facility] ([facility]) [address] [place] [address] [phone] 5 07/23/2024 15:40:17 07/27/2024 13:55:22 Candidiasis of skin 25831448 B37.2 Extensive, will use oral medication . Patient was advised to follow-up in a week to check for healing. [id number] Celia Louis MD [facility] ([facility]) [address] [place] [address] [phone] 5 07/30/2024 14:25:52 08/05/2024 07:24:04 Candidiasis of skin 80962251 B37.2 Definitely improved significan tly from last visit. The ulcerated areas are healing well so any bacterial infection seems to be controlled with a topical. They may continue the topical until epithelial ized. continue the fluconazol e 07/30/24 [id number] RADHA BENTON APRN [facility] ([facility]) [address] [place] [phone] 5 07/26/2024 17:50:00 07/28/2024 12:18:58 Wound of skin 814783329 T14.8XXA Eruption 038453246 R21 Candidiasis of skin 4988 3006 B37.2 Health Concerns Section Related Observation LastModified by Organization Detai ls LastModified Time None Recorded Concern Status LastModified by Organization Details LastModified Time None Recorded Advance Directives Directive None Recorded Payers Insurance Date Sequence Insurance Name Policy Number Policy Walters Covered Member ID Walters Member ID Guarantor Name 08/05/2024 1 [employer] (MEDICARE REPLACEMENT/A DVANTAGE - PPO) Macey Brush [id number] Macey Brush Notes Date Note Type Note Provider Name and Address Organization Details Recorded Time 05/28/2024 text/html pt had a stroke on 05/11 - right hemiplegiais getting set up with in home therapyShe states her speech has improved a lot. Celia Louis MD [address] [place] [address], [phone], [facility] 06/10/2024 12:51:12 06/25/2024 text/html Patient was here for us to go over her CPAP titration study.We called [facility] and they state that the patient had no titration study there.It sounds like she just had an overnight pulse ox done while she was staying in the hospital. eClia Louis MD [address] [place] [address], [phone], [facility] 07/01/2024 15:55:07 07/23/2024 text/html General Rash/Ski n LesionReported bypatient.Location:a bdomen; groin Quality:painful;weep ing;red;stinging Severity:severe; worsening Onset/Timing:gradual onset Associated Symptoms:no fever very painfulShe changed her pull-ups about 3 weeks ago and wonders if she is having an allergic reaction to them.She does tend to have sensitive skin when it comes to pads Celia Louis MD [address] [place] [address], [phone], [facility] 07/23/2024 17:22:29 07/26/2024 text/[facility], Pt has a rash on the inside of right leg. Her rash and pain started Saturday. It got worse and she use a hairdryer on it RADHA BENTON APRN [address] [place] [address], [phone], [facility] 07/26/2024 18:49:28 07/30/2024 text/html General Rash/Ski n LesionReported bypatient.Location:a bdomen Quality:painful;dry; red;swollen Severity:severe; improving Her rash was exquisitely tender so she went to the walk-in on Saturday. They prescribed a topical antibiotic and did a wound culture. The patient's rash is improved. It is still pretty tender. Celia Louis MD [address] [place] [address], [phone], [facility] 08/04/2024 15:46:11 OBGyn Episode No OBEpisode recorded.
--- OUTSIDE RECORDS SUMMARY | 2024-09-20 05:10 | XMS_ITS | Encounter Summary ---
Author Organization [employer] [facility] Address [address] [place] [address] Care Team Providers Care Project Program Manager Name Role Phone Unavailable Primary Care Provider Unavailabl e Encounter Details Date Type Department Care Team (Latest Contact Info) Description 12/23/2000 Outpatient Historical [facility] Chaitanya Hernandez Jr., MD [address] [place] [phone] Type II or unspecified type diabetes mellitus without mention of complication, not stated as uncontrolled (Primary Dx); Unspecified hypothyroidism; Need for prophylactic hormone replacement therapy (postmenopausal) Social History Tobacco Use Types Packs/Day Years Used Date Smoking Tobacco: Never Assessed Comments Unknown Sex and Gender Information Value Date Recorded Sex Assigned at Not on file 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
--- OUTSIDE RECORDS SUMMARY | 2024-09-20 05:10 | XMS_ITS | Encounter Summary ---
Author Organization [employer] [facility] Address [address] [place] [address] Care Team Providers Care Staffing Consultant Name Role Phone Unavailable Primary Care Provider Unavailabl e Encounter Details Date Type Department Care Team (Latest Contact Info) Description 01/21/2001 Outpatient Historical [facility] Chaitanya Hernandez Jr., MD [address] [place] [address] VACCINE FOR INFLUENZA (Primary Dx) Social History Tobacco Use Types Packs/Day Years Used Date Smoking Tobacco: Never Assessed Comments Unknown Sex and Gender Information Value Date Recorded Sex Assigned at Not on file 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
--- OUTSIDE RECORDS SUMMARY | 2024-09-20 05:10 | XMS_ITS | Encounter Summary ---
Author Organization [employer] [facility] Address [address] [place] [address] Care Team Providers Care Airport Operations Coordinator Name Role Phone Unavailable Primary Care Provider Unavailabl e Encounter Details Date Type Department Care Team (Latest Contact Info) Description 07/12/1999 Outpatient Historical [facility] Giselle Scooby H NO ADDRESS ON FILE Other specified menopausal and postmenopausal disorder (Primary Dx); Acute pharyngitis; Family history of diabetes mellitus; Personal history of malignant neoplasm of thyroid Social History Tobacco Use Types Packs/Day Years Used Date Smoking Tobacco: Never Assessed Comments Unknown Sex and Gender Information Value Date Recorded Sex Assigned at Not on file 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
--- OUTSIDE RECORDS SUMMARY | 2024-09-20 05:10 | XMS_ITS | Clinical Summary ---
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
--- OUTSIDE RECORDS SUMMARY | 2024-09-20 05:10 | XMS_ITS | Encounter Summary ---
Author Organization [employer] [facility] Address [address] [place] [address] Care Team Providers Care Poultry Field Service Technician Name Role Phone Unavailable Primary Care Provider Unavailabl e Encounter Details Date Type Department Care Team (Latest Contact Info) Description 10/22/2000 Outpatient Historical [facility] Chasegrace Scooby H NO ADDRESS ON FILE Gynecologic examination (Primary Dx); Screening for malignant neoplasm of the cervix; Need for prophylactic hormone replacement therapy (postmenopausal); Screening for nephropathy Social History Tobacco Use Types Packs/Day Years Used Date Smoking Tobacco: Never Assessed Comments Unknown Sex and Gender Information Value Date Recorded Sex Assigned at Not on file 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
--- OUTSIDE RECORDS SUMMARY | 2024-09-20 05:10 | XMS_ITS | Encounter Summary ---
Author Organization [employer] [facility] Address [address] [place] [address] Care Team Providers Care Family Support Specialist Name Role Phone Unavailable Primary Care Provider Unavailabl e Encounter Details Date Type Department Care Team (Latest Contact Info) Description 07/21/1999 Outpatient Historical [facility] Scooby Desai NO ADDRESS ON FILE Other abnormal clinical finding (Primary Dx) Social History Tobacco Use Types Packs/Day Years Used Date Smoking Tobacco: Never Assessed Comments Unknown Sex and Gender Information Value Date Recorded Sex Assigned at Not on file 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
--- OUTSIDE RECORDS SUMMARY | 2024-09-20 05:10 | XMS_ITS | Patient Health Record ---
Author Organization [facility] Address [address] [place] [address] [place] [address] Care Team Providers Care Health And Human Performance Professor Name Role Phone Heriberto Celia Primary Care Provider UnavailNish Chow Unavailable [phone] JANESSA PRASADLEE Unavailable Unavailable Corky Lorenzo Unavailable [phone] Abelardo Monge JR Unavailable [phone] Amrita Prasad Unavailable [phone] Mansi Oliva Unavailable [phone] Patricia Cristina Unavailable [phone] Jen Caldwell Unavailable [phone] Solomon Sanchez Unavailable [phone] Allergies Allergen (clinical drug ingredient) Drug/Non Drug Allergy documented on EMR Reaction Allergy Type Onset Date Status ciprofloxacin Ciprofloxacin Unknown Drug Allergy Active Latex Latex Unknown Allergy Active Results Component Value Reference Range Notes Comprehensive Metabolic Pane l (CMP) 54366 Reviewed date:01/21/2024 11:19:57 AM Interpretation: Performing Lab: Notes/Report: Diagnosis Description: Tubulo-interstitial nephritis, not specified as acute or chronic Glucose Serum 198 71-110 MG/DL Testing perfor med at [facility], [address] [place] [address] [place] [address]. CLIA ID#: [id number] BUN 17 7-21 MG/DL Creat 1.75 .51-1.17 MG/DL R-pifvzw-o-benzoquino ne imine (NAPQI) is a metabolite of acetaminophen, NAPQI concentrations of apparoximately 10 mg/L correlation to toxic levels of acetaminophen demonstrates a greater than or equil to 10% change in results. NAPQI concentrations greater than this may lead to falsely depressed results for patient samples. Use of this assay is not recommended for patients undergoing treatment with phenindione, due to the potential for falsely depressed results. GFR 30.8 Calculation per formed from GFR calculator provided by the [employer]. Glomerular Filtration rate(GRF) is the best overall index of kidney function. Normal GFR varies according to age,sex, body size, and declines with age. The National Kid[employer] Foundation recommends using the CKD-EPI Creatinine Equation(2020) to estimate GFR. BUN/Creat Ratio 9.7 12.0-20.0 % Total Protein 6.9 5.8-8.0 G/DL Albumin 3.7 3.2-4.8 G/DL Globulin 3.2 2.3-3.5 G/DL Alb/Glob 1.2 0.8-2.2 Calcium 8.4 8.7-10.4 MG/DL Sodium 144 136-145 MMOL/L Potassium 4.4 3.5-5.1 MMOL/L Chloride 108 98-107 MMOL/L CO2 26.6 20.0-31.0 MMOL/L Anion Gap 14 5-15 Alk Phos 99 46-116 Bili Total .4 .3-1.2 MG/DL Use of this ass ay is not recommended for patients undergoing treatment with eltrombopag due to the potential for falsely elevated results. AST/SGOT 10 15-37 UNIT/L ALT/SGPT 7 12-78 UNIT/L Osmo Serum,Calculated 305 280-300 MOSM/KG Microscopic Urine 35393 Reviewed date:01/21/2024 11:19:57 AM Interpretation: Performing Lab: Notes/Report: Diagnosis Description: Tubulo-interstitial nephritis, not specified as acute or chronic RBC U 387 WBC U 382 0-5 /HPF Bacteria 1+ Hyaline Casts 11 SQ EPI 10 WBC Clump Present [place] [id number] Reviewed date:01/21/2024 11:19:57 AM Interpretation: Performing Lab: Notes/Report: Diagnosis Description: Tubulo-interstitial nephritis, not specified as acute or chronic CRP 3.12 .40-1.00 MG/DL CBC w\ Auto Diff 27062 Reviewed date:02/14/2024 09:19:08 AM Interpretation: Performing Lab: Notes/Report: Diagnosis Description: Other bacterial infections of unspecified site WBC 5.9 4.5-11.0 X10'3 RBC 3.23 4.00-5.20 X10'6 Hgb 9.1 12.0-16.0 G/DL Hct 29.5 36.0-46.0 % MCV 91.3 80.0-100.0 FL MCH 28.2 27.0-31.0 PG MCHC 30.8 31.0-37.0 G/DL Platelet 153 150-400 X10'3 RDW-SD 48.6 35.0-49.0 FL RDW-CV 14.2 12.2-15.6 % MPV 11.2 9.2-12.0 FL Neutro Auto% 41.0 40.0-70.0 % Lymph Auto% 35.7 22.0-44.0 % Corson Auto% 21.1 3.0-7.0 % Eos Auto% 1.5 2.0-4.0 % Baso Auto% 0.2 0.0-1.0 % Imm Gran% .5 .0-.4 % Neutro Abs 2.41 .80-7.70 Absolute Neutrophil Count 2410 Lymph Abs 2.10 .10-4.10 Corson Abs 1.24 .20-1.00 Eos Abs .09 .00-.40 Baso Abs .01 .00-.20 Imm Gran Abs .03 .00-.10 NRBC# .00 .00-.20 X10'3 NRBC% .00 .00-.20 /100 intact WBC's Comprehensive Metabolic Pane l (CMP) 60305 Reviewed date:02/14/2024 09:19:08 AM Interpretation: Performing Lab: Notes/Report: Diagnosis Description: Other bacterial infections of unspecified site Glucose Serum 103 71-110 MG/DL Testing perfor med at [facility], [address] [place] [address] [place] [address]. CLIA ID#: [id number] BUN 30 7-21 MG/DL Creat 2.04 .51-1.17 MG/DL C-hzcrdy-k-benzoquino ne imine (NAPQI) is a metabolite of acetaminophen, NAPQI concentrations of apparoximately 10 mg/L correlation to toxic levels of acetaminophen demonstrates a greater than or equil to 10% change in results. NAPQI concentrations greater than this may lead to falsely depressed results for patient samples. Use of this assay is not recommended for patients undergoing treatment with phenindione, due to the potential for falsely depressed results. GFR 25.6 Calculation per formed from GFR calculator provided by the [employer]. Glomerular Filtration rate(GRF) is the best overall index of kidney function. Normal GFR varies according to age,sex, body size, and declines with age. The National Kid[employer] Foundation recommends using the CKD-EPI Creatinine Equation(2020) to estimate GFR. BUN/Creat Ratio 14.7 12.0-20.0 % Total Protein 7.2 5.8-8.0 G/DL Albumin 4.1 3.2-4.8 G/DL Globulin 3.2 2.3-3.5 G/DL Alb/Glob 1.3 0.8-2.2 Calcium 9.1 8.7-10.4 MG/DL Sodium 146 136-145 MMOL/L Potassium 3.7 3.5-5.1 MMOL/L Chloride 114 98-107 MMOL/L CO2 20.5 20.0-31.0 MMOL/L Anion Gap 15 5-15 Alk Phos 93 46-116 Bili Total .4 .3-1.2 MG/DL Use of this ass ay is not recommended for patients undergoing treatment with eltrombopag due to the potential for falsely elevated results. AST/SGOT 13 15-37 UNIT/L ALT/SGPT 8 12-78 UNIT/L Osmo Serum,Calculated 308 280-300 MOSM/KG CRP 61390 Reviewed date:02/14/2024 09:19:08 AM Interpretation: Performing Lab: Notes/Report: Diagnosis Description: Other bacterial infections of unspecified site CRP 7.96 .40-1.00 MG/DL Uric Acid (B) 81229 Reviewed date:08/25/2024 10:11:11 AM Interpretation:appt 08/24/24 Performing Lab: Notes/Report: Diagnosis Description: Hypertensive chronic kidney disease with stage 1 through stage 4 chronic kidney disease, or unspecified chronic kidney disease Diagnosis Description: Chronic kidney disease, stage 3b Uric Acid 8.0 2.6-6.0 MG/DL PTH Intact 51526 Reviewed date:08/25/2024 10:11:11 AM Interpretation: Performing Lab: Notes/Report: Diagnosis Description: Hypertensive chronic kidney disease with stage 1 through stage 4 chronic kidney disease, or unspecified chronic kidney disease Diagnosis Description: Chronic kidney disease, stage 3b PTH Intact 49.9 18.4-88.0 pg/mL Performed on the Siemens Atellica Solution IM Phosphorus (B) 23351 Reviewed date:08/25/2024 10:11:11 AM Interpretation: Performing Lab: Notes/Report: Diagnosis Description: Hypertensive chronic kidney disease with stage 1 through stage 4 chronic kidney disease, or unspecified chronic kidney disease Diagnosis Description: Chronic kidney disease, stage 3b Phos 4.0 2.4-5.1 MG/DL Protein (U) Random 19131 Reviewed date:08/25/2024 10:11:11 AM Interpretation: Performing Lab: Notes/Report: Diagnosis Description: Hypertensive chronic kidney disease with stage 1 through stage 4 chronic kidney disease, or unspecified chronic kidney disease Diagnosis Description: Chronic kidney disease, stage 3b Diagnosis Description: Proteinuria, unspecified Ur Prot 72.10 .00-12.00 MG/DL UA Reflex Micro, Reflex Cult 74496, 96816, 12723 Reviewed date:08/25/2024 10:11:11 AM Interpretation: Performing Lab: Notes/Report: Diagnosis Description: Hypertensive chronic kidney disease with stage 1 through stage 4 chronic kidney disease, or unspecified chronic kidney disease Diagnosis Description: Chronic kidney disease, stage 3b Diagnosis Description: Proteinuria, unspecified Color UA Yellow Clarity UA Cloudy Specific gravity UA 1.013 1.005-1.030 Urine pH 7.5 5.0-8.0 Urine Glucose Trace Urine Bilirubin Negative Urine Ketone Negative Urine Blood 3+ Urine Protein 1+ Urobilinogen 0.2 0.1-1.0 Urine Nitrite Negative Urine Leukocyte 3+ Normal UA No Urine Culture Yes Creatinine (U) 85878 Reviewed date:08/25/2024 10:11:11 AM Interpretation: Performing Lab: Notes/Report: Diagnosis Description: Hypertensive chronic kidney disease with stage 1 through stage 4 chronic kidney disease, or unspecified chronic kidney disease Diagnosis Description: Chronic kidney disease, stage 3b Diagnosis Description: Proteinuria, unspecified Ur Creat 56.8 29.0-226.0 Albumin 72345 Reviewed date:08/25/2024 10:11:11 AM Interpretation: Performing Lab: Notes/Report: Diagnosis Description: Hypertensive chronic kidney disease with stage 1 through stage 4 chronic kidney disease, or unspecified chronic kidney disease Diagnosis Description: Chronic kidney disease, stage 3b Diagnosis Description: Proteinuria, unspecified Albumin 4.3 3.2-4.8 G/DL Hemoglobin 05462 Reviewed date:08/25/2024 10:11:11 AM Interpretation: Performing Lab: Notes/Report: Diagnosis Description: Hypertensive chronic kidney disease with stage 1 through stage 4 chronic kidney disease, or unspecified chronic kidney disease Diagnosis Description: Chronic kidney disease, stage 3b Diagnosis Description: Anemia in chronic kidney disease Hgb 10.2 12.0-16.0 G/DL Ferritin 36727 Reviewed date:08/25/2024 10:11:11 AM Interpretation: Performing Lab: Notes/Report: Diagnosis Description: Hypertensive chronic kidney disease with stage 1 through stage 4 chronic kidney disease, or unspecified chronic kidney disease Diagnosis Description: Chronic kidney disease, stage 3b Diagnosis Description: Anemia in chronic kidney disease Ferritin 167 8-388 ng/mL % Iron Saturation (Fe & TIBC )--43236,36221 Reviewed date:08/25/2024 10:11:11 AM Interpretation: Performing Lab: Notes/Report: Diagnosis Description: Hypertensive chronic kidney disease with stage 1 through stage 4 chronic kidney disease, or unspecified chronic kidney disease Diagnosis Description: Chronic kidney disease, stage 3b Diagnosis Description: Anemia in chronic kidney disease Iron 66 50-170 MCG/DL Per Iron assay instruction for Use(IFU), patients treated with metal-binding drugs (e.g.deferoxamine) may have depressed iron values as chelated iron may not properly react in the iron assay. Testing was performed with this assay method. TIBC 222 250-450 NG/DL % Iron Saturation 30 20-50 % Basic Metabolic Panel (BMP) 76461 Reviewed date:08/25/2024 10:11:11 AM Interpretation: Performing Lab: Notes/Report: Diagnosis Description: Hypertensive chronic kidney disease with stage 1 through stage 4 chronic kidney disease, or unspecified chronic kidney disease Diagnosis Description: Chronic kidney disease, stage 3b Diagnosis Description: Hypokalemia Diagnosis Description: Hypocalcemia Sodium 140 136-145 MMOL/L Potassium 5.4 3.5-5.1 MMOL/L Chloride 114 98-107 MMOL/L CO2 19.3 20.0-31.0 MMOL/L Glucose Serum 101 71-110 MG/DL Testing perfor med at [address] [place] [address]. CLIA ID#: [id number] BUN 44 7-21 MG/DL Creat 1.79 .51-1.17 MG/DL Z-accilx-m-benzoquino ne imine (NAPQI) is a metabolite of acetaminophen, NAPQI concentrations of apparoximately 10 mg/L correlation to toxic levels of acetaminophen demonstrates a greater than or equil to 10% change in results. NAPQI concentrations greater than this may lead to falsely depressed results for patient samples. Use of this assay is not recommended for patients undergoing treatment with phenindione, due to the potential for falsely depressed results. GFR 29.9 Calculation per formed from GFR calculator provided by the National Kidney Foundation. Glomerular Filtration rate(GRF) is the best overall index of kidney function. Normal GFR varies according to age,sex, body size, and declines with age. The National Kidney Foundation recommends using the CKD-EPI Creatinine Equation(2020) to estimate GFR. Anion Gap 12 5-15 BUN/Creat Ratio 24.6 12.0-20.0 % Calcium 8.8 8.7-10.4 MG/DL Osmo Serum,Calculated 301 280-300 MOSM/KG CT Abdomen, Pelvis w/o Contr ast-[id number] Reviewed date:02/14/2024 09:17:51 AM Interpretation: Performing Lab: Notes/Report: See Below For Report CT Abdomen, Pelvis w/o Contrast Diagnosis Description: Urinary tract infection, site not specified Read See Below For Report Schedule Confirmation Reviewed date:02/14/2024 09:17:51 AM Interpretation: Performing Lab: Notes/Report: CT Abdomen, Pelvis w/o Contrast Schedule Confirmation Reviewed date:02/11/2024 03:48:29 PM Interpretation: Performing Lab: Notes/Report: CT Abdomen, Pelvis w/o Contrast Schedule Confirmation Reviewed date:02/11/2024 03:49:12 PM Interpretation: Performing Lab: Notes/Report: Schedule Confirmation Reviewed date:02/11/2024 03:49:12 PM Interpretation: Performing Lab: Notes/Report: Schedule Confirmation Reviewed date:02/11/2024 03:49:12 PM Interpretation: Performing Lab: Notes/Report: CDiff/Epi--[id number] Reviewed date:02/07/2024 08:45:25 AM Interpretation: Performing Lab: Notes/Report: CDiff/Epi ALCIRA Plascencia CDiff/Epi t: CDiff/Epi CDiff/Epi Accessio [id number] CDiff/Epi n: CDiff/Epi Microbiology CDiff/Epi PROCEDURE: CDiff/Epi [i1] CDiff/Epi SOURCE: Stool BODY SITE: CDiff/Epi COLLECTED DATE/TIME: 02/06/2024 10:55 CAPITAL PROJECT ENGINEER RECEIVED DATE/TIME: 02/06/2024 11:31 CAPITAL PROJECT ENGINEER CDiff/Epi START DATE/TIME: 02/06/2024 11:31 CAPITAL PROJECT ENGINEER FREE TEXT SOURCE: CDiff/Epi FINAL REPORT CDiff/Epi Final Report [] CDiff/Epi Verified Date/Time: 02/06/2024 11:32 CAPITAL PROJECT ENGINEER CDiff/Epi 027-NAP1-BI PRESUMPT CONSTANTINE NEGATIVE CDiff/Epi Interpretive Data CDiff/Epi i1: CDiff/Epi CDiff/Epi A positive result indicates the presence of the virulent strain Clostridium difficile CDiff/Epi 027-NAP1-BI that is capable of producing toxin. It does not indicate toxin production. CDiff/Epi Toxin testing will b e performed on PCR positive results. CDiff/Epi ---- CDiff/Epi PROCEDURE: CDiff Tox in EIA [i2] CDiff/Epi SOURCE: Stool BODY SITE: CDiff/Epi COLLECTED DATE/TIME: 02/06/2024 10:55 CAPITAL PROJECT ENGINEER RECEIVED DATE/TIME: 02/06/2024 11:31 CAPITAL PROJECT ENGINEER CDiff/Epi START DATE/TIME: 02/06/2024 11:31 CAPITAL PROJECT ENGINEER FREE TEXT SOURCE: CDiff/Epi FINAL REPORT CDiff/Epi Final Report [] CDiff/Epi Verified Date/Time: 02/06/2024 11:31 CAPITAL PROJECT ENGINEER CDiff/Epi Negative for Clostri dium difficile toxin A and/or B CDiff/Epi Interpretive Data CDiff/Epi i2: CDiff Toxin EIA CDiff/Epi A positive result indicates that Clostidium difficule is present and is producing toxin CDiff/Epi that is responsible for C. difficile infection. Treatment of a patient yielding a positive CDiff/Epi PCR result with a negative toxin result should be based on clinical symptoms. C Diff Toxin EIA--91430 Reviewed date:02/07/2024 08:45:25 AM Interpretation: Performing Lab: Notes/Report: CDiff Toxin EIA ALCIRA Plascencia CDiff Toxin EIA t: CDiff Toxin EIA CDiff Toxin EIA Accessio [id number] CDiff Toxin EIA n: CDiff Toxin EIA Microbiology CDiff Toxin EIA PROCEDURE: CDiff Tox in EIA [i1] CDiff Toxin EIA SOURCE: Stool BODY SITE: CDiff Toxin EIA COLLECTED DATE/TIME: 02/06/2024 10:55 CAPITAL PROJECT ENGINEER RECEIVED DATE/TIME: 02/06/2024 11:31 CAPITAL PROJECT ENGINEER CDiff Toxin EIA START DATE/TIME: 02/06/2024 11:31 CAPITAL PROJECT ENGINEER FREE TEXT SOURCE: CDiff Toxin EIA FINAL REPORT CDiff Toxin EIA Final Report [] CDiff Toxin EIA Verified Date/Time: 02/06/2024 11:31 CAPITAL PROJECT ENGINEER CDiff Toxin EIA Negative for Clostri dium difficile toxin A and/or B CDiff Toxin EIA Interpretive Data CDiff Toxin EIA i1: CDiff Toxin EIA CDiff Toxin EIA A positive result indicates that Clostidium difficule is present and is producing toxin CDiff Toxin EIA that is responsible for C. difficile infection. Treatment of a patient yielding a positive CDiff Toxin EIA PCR result with a negative toxin result should be based on clinical symptoms. CT Chest w/o Contrast diagno stic-23906 Reviewed date:01/14/2024 03:36:41 PM Interpretation: Performing Lab: Notes/Report: See Below For Report CT Chest w/o Contrast Read See Below For Report Schedule Confirmation Reviewed date:01/14/2024 03:36:41 PM Interpretation: Performing Lab: Notes/Report: CT Chest w/o Contrast CRP 54464 Reviewed date:01/06/2024 05:59:54 PM Interpretation: Performing Lab: Notes/Report: BG 221 @0120, pt states had c-diff multiple times. bm in urine. no sample yet. 3516 @ 0150 3516 @ 0150 CRP 3.53 .40-1.00 MG/DL CRP 61986 Reviewed date:12/31/2023 11:18:07 AM Interpretation: Performing Lab: Notes/Report: BG 221 @0120, pt states had c-diff multiple times. bm in urine. no sample yet. 3516 @ 0150 3516 @ 0150 CRP 5.03 .40-1.00 MG/DL Ferritin 35966 Reviewed date:12/31/2023 09:55:20 PM Interpretation: Performing Lab: Notes/Report: BG 221 @0120, pt states had c-diff multiple times. bm in urine. no sample yet. 3516 @ 0150 3516 @ 0150 Ferritin 788 8-388 ng/mL CRP 99230 Reviewed date:01/01/2024 05:29:03 PM Interpretation: Performing Lab: Notes/Report: BG 221 @0120, pt states had c-diff multiple times. bm in urine. no sample yet. 3516 @ 0150 3516 @ 0150 CRP 21.74 .40-1.00 MG/DL Creatinine (U) 43194 Reviewed date:02/28/2024 08:40:28 AM Interpretation: Performing Lab: Notes/Report: Ur Creat 68.6 29.0-226.0 Protein (U) Random 72388 Reviewed date:02/28/2024 08:40:28 AM Interpretation: Performing Lab: Notes/Report: Ur Prot 159.40 .00-12.00 MG/DL CT Abdomen, Pelvis w/o Contr ast-[id number] Reviewed date:02/14/2024 09:17:51 AM Interpretation: Performing Lab: Notes/Report: [id number] Microscopic Urine 08167 Reviewed date:02/11/2024 04:08:58 PM Interpretation: Performing Lab: Notes/Report: Diagnosis Description: Urinary tract infection, site not specified RBC U 6 WBC U 637 0-5 /HPF Bacteria 3+ Hyaline Casts 4 SQ EPI 6 Culture Urine [id number] Reviewed date:02/13/2024 08:39:59 AM Interpretation: Performing Lab: Notes/Report: Culture Urine ALCIRA Plascencia Culture Urine t: Culture Urine Culture Urine [facility] [id number] Culture Urine n: Culture Urine Microbiology Culture Urine PROCEDURE: Culture Urine [O1] Culture Urine SOURCE: Urine BODY SITE: Culture Urine COLLECTED DATE/TIME: 02/10/2024 16:06 CAPITAL PROJECT ENGINEER RECEIVED DATE/TIME: 02/10/2024 21:49 CAPITAL PROJECT ENGINEER Culture Urine START DATE/TIME: 02/10/2024 21:50 CAPITAL PROJECT ENGINEER FREE TEXT SOURCE: Culture Urine FINAL REPORT Culture Urine Final Report [] Culture Urine Verified Date/Time: 02/12/2024 06:31 CAPITAL PROJECT ENGINEER Culture Urine >100,000 cfu/ml. Citrobacter farmeri Culture Urine SUSCEPTIBILITY RESULTS Culture Urine Citfar Culture Urine Antibiotic MDIL MINT Culture Urine Ceftazidime <=0.5 Susceptible Culture Urine Gentamicin <=1 Susceptible Culture Urine Nitrofurantoin 64 Intermediate Culture Urine Order Comments Culture Urine O1: Culture Urine (Culture Urine [id number]) Culture Urine Diagnosis Descriptio n: Urinary tract infection, site not specified CRP 72312 Reviewed date:02/07/2024 08:45:25 AM Interpretation: Performing Lab: Notes/Report: Diagnosis Description: Other bacterial infections of unspecified site CRP 2.12 .40-1.00 MG/DL Comprehensive Metabolic Pane l (CMP) 13347 Reviewed date:02/07/2024 08:46:24 AM Interpretation: Performing Lab: Notes/Report: Diagnosis Description: Other bacterial infections of unspecified site Glucose Serum 115 71-110 MG/DL Testing perfor med at [facility], [address] [place] [address] [place] [address]. CLIA ID#: [id number] BUN 29 7-21 MG/DL Creat 1.73 .51-1.17 MG/DL Q-mrripe-d-benzoquino ne imine (NAPQI) is a metabolite of acetaminophen, NAPQI concentrations of apparoximately 10 mg/L correlation to toxic levels of acetaminophen demonstrates a greater than or equil to 10% change in results. NAPQI concentrations greater than this may lead to falsely depressed results for patient samples. Use of this assay is not recommended for patients undergoing treatment with phenindione, due to the potential for falsely depressed results. GFR 31.3 Calculation per formed from GFR calculator provided by the National Kid[employer]. Glomerular Filtration rate(GRF) is the best overall index of kidney function. Normal GFR varies according to age,sex, body size, and declines with age. The National Kidney Foundation recommends using the CKD-EPI Creatinine Equation(2020) to estimate GFR. BUN/Creat Ratio 16.8 12.0-20.0 % Total Protein 8.3 5.8-8.0 G/DL Albumin 4.5 3.2-4.8 G/DL Globulin 3.8 2.3-3.5 G/DL Alb/Glob 1.2 0.8-2.2 Calcium 9.7 8.7-10.4 MG/DL Sodium 141 136-145 MMOL/L Potassium 4.9 3.5-5.1 MMOL/L Chloride 113 98-107 MMOL/L CO2 21.2 20.0-31.0 MMOL/L Anion Gap 12 5-15 Alk Phos 106 46-116 Bili Total .5 .3-1.2 MG/DL Use of this ass ay is not recommended for patients undergoing treatment with eltrombopag due to the potential for falsely elevated results. AST/SGOT 15 15-37 UNIT/L ALT/SGPT 10 12-78 UNIT/L Osmo Serum,Calculated 299 280-300 MOSM/KG CBC w\ Auto Diff 70781 Reviewed date:02/07/2024 08:46:24 AM Interpretation: Performing Lab: Notes/Report: Diagnosis Description: Other bacterial infections of unspecified site WBC 8.9 4.5-11.0 X10'3 RBC 3.26 4.00-5.20 X10'6 Hgb 9.2 12.0-16.0 G/DL Hct 30.8 36.0-46.0 % MCV 94.5 80.0-100.0 FL MCH 28.2 27.0-31.0 PG MCHC 29.9 31.0-37.0 G/DL Platelet 147 150-400 X10'3 RDW-SD 53.0 35.0-49.0 FL RDW-CV 15.1 12.2-15.6 % MPV 11.8 9.2-12.0 FL Neutro Auto% 38.1 40.0-70.0 % Lymph Auto% 42.7 22.0-44.0 % Corson Auto% 16.8 3.0-7.0 % Eos Auto% 1.8 2.0-4.0 % Baso Auto% 0.4 0.0-1.0 % Imm Gran% .2 .0-.4 % Neutro Abs 3.40 .80-7.70 Absolute Neutrophil Count 3400 Lymph Abs 3.81 .10-4.10 Corson Abs 1.50 .20-1.00 Eos Abs .16 .00-.40 Baso Abs .04 .00-.20 Imm Gran Abs .02 .00-.10 NRBC# .00 .00-.20 X10'3 NRBC% .00 .00-.20 /100 intact WBC's CBC w\ Auto Diff 13038 Reviewed date:01/21/2024 11:19:57 AM Interpretation: Performing Lab: Notes/Report: Diagnosis Description: Tubulo-interstitial nephritis, not specified as acute or chronic WBC 7.7 4.5-11.0 X10'3 RBC 2.81 4.00-5.20 X10'6 Hgb 7.9 12.0-16.0 G/DL Hct 26.8 36.0-46.0 % MCV 95.4 80.0-100.0 FL MCH 28.1 27.0-31.0 PG MCHC 29.5 31.0-37.0 G/DL Platelet 142 150-400 X10'3 RDW-SD 59.3 35.0-49.0 FL RDW-CV 16.7 12.2-15.6 % MPV 11.4 9.2-12.0 FL Neutro Auto% 38.3 40.0-70.0 % Lymph Auto% 34.4 22.0-44.0 % Corson Auto% 25.4 3.0-7.0 % Eos Auto% 1.2 2.0-4.0 % Baso Auto% 0.3 0.0-1.0 % Imm Gran% .4 .0-.4 % Neutro Abs 2.94 .80-7.70 Absolute Neutrophil Count 2940 Lymph Abs 2.64 .10-4.10 Corson Abs 1.95 .20-1.00 Eos Abs .09 .00-.40 Baso Abs .02 .00-.20 Imm Gran Abs .03 .00-.10 NRBC# .00 .00-.20 X10'3 NRBC% .00 .00-.20 /100 intact WBC's Culture Urine [id number] Reviewed date:01/21/2024 11:19:57 AM Interpretation: Performing Lab: Notes/Report: Culture Urine ADA PlascenciaCY BARRY Culture Urine t: Culture Urine Culture Urine Accessio [id number] Culture Urine n: Culture Urine Microbiology Culture Urine PROCEDURE: Culture U rine [O1] Culture Urine SOURCE: Urine BODY SITE: Culture Urine COLLECTED DATE/TIME: 01/14/2024 15:21 CDT RECEIVED DATE/TIME: 01/14/2024 16:38 CDT Culture Urine START DATE/TIME: 01/14/2024 16:38 CDT FREE TEXT SOURCE: Culture Urine FINAL REPORT Culture Urine Final Report [] Culture Urine Verified Date/Time: 01/17/2024 07:12 CDT Culture Urine >10,000 cfu/ml Enterococcus faecalis Culture Urine SUSCEPTIBILITY RESULTS Culture Urine Strfae Culture Urine Antibiotic MDIL MINT Culture Urine Ampicillin <=2 Susceptible Culture Urine Benzylpenicillin 2 Susceptible Culture Urine Ciprofloxacin <=0.5 Susceptible Culture Urine Erythromycin 2 Intermediate Culture Urine Gentamicin High Syn- S Susceptible Culture Urine Levofloxacin 0.5 Susceptible Culture Urine LINEZOLID 2 Susceptible Culture Urine Nitrofurantoin <=16 Susceptible Culture Urine Streptomycin High Le verito Syn-S Susceptible Culture Urine Tetracycline >=16 Resistant Culture Urine Vancomycin 1 Susceptible Culture Urine Order Comments Culture Urine O1: Culture Urine (Culture Urine [id number]) Culture Urine Diagnosis Descriptio n: Tubulo-interstitial nephritis, not specified as acute or chronic CT Chest w/o Contrast diagno stic-57316 Reviewed date:01/14/2024 03:36:41 PM Interpretation: Performing Lab: Notes/Report: [id number]&[email or web address] Culture Urine Reflex--[id number] Reviewed date:08/25/2024 10:11:11 AM Interpretation: Performing Lab: Notes/Report: Culture Urine Reflex ADA PlascenciaNj DALEYYN Culture Urine Reflex t: Culture Urine Reflex Culture Urine Reflex Accessio [id number] Culture Urine Reflex n: Culture Urine Reflex Microbiology Culture Urine Reflex PROCEDURE: Culture Urine Reflex [] Culture Urine Reflex SOURCE: U CC BODY SITE: Culture Urine Reflex COLLECTED DATE/TIME : 08/14/2024 11:38 CDT RECEIVED DATE/TIME: 08/14/2024 14:49 CDT Culture Urine Reflex START DATE/TIME: 08/14/2024 14:49 CDT FREE TEXT SOURCE: Culture Urine Reflex FINAL REPORT Culture Urine Reflex Final Report [] Culture Urine Reflex Verified Date/Time: 08/16/2024 10:11 CDT Culture Urine Reflex > 10,000 cfu/ml mix ed superficial юлия Culture Urine Reflex Multiple microorgan isms present Culture Urine Reflex Probable contamination Basic Metabolic Panel (BMP) 05076 (Not yet reviewed by provider) Interpretation: Performing Lab: Notes/Report: Diagnosis Description: Chronic kidney disease, stage 3b Diagnosis Description: Hyperkalemia Sodium 145 136-145 MMOL/L Potassium 4.7 3.5-5.1 MMOL/L Chloride 113 98-107 MMOL/L CO2 20.6 20.0-31.0 MMOL/L Glucose Serum 127 71-110 MG/DL Testing perfor med at [facility], [address] [place] [address] [place] [address]. CLIA ID#: [id number] BUN 42 7-21 MG/DL Creat 1.85 .51-1.17 MG/DL Y-olianw-r-benzoquino ne imine (NAPQI) is a metabolite of acetaminophen, NAPQI concentrations of apparoximately 10 mg/L correlation to toxic levels of acetaminophen demonstrates a greater than or equil to 10% change in results. NAPQI concentrations greater than this may lead to falsely depressed results for patient samples. Use of this assay is not recommended for patients undergoing treatment with phenindione, due to the potential for falsely depressed results. GFR 28.7 Calculation per formed from GFR calculator provided by the National Kid[employer] Foundation. Glomerular Filtration rate(GRF) is the best overall index of kidney function. Normal GFR varies according to age,sex, body size, and declines with age. The National Kidney Foundation recommends using the CKD-EPI Creatinine Equation(2020) to estimate GFR. Anion Gap 16 5-15 BUN/Creat Ratio 22.7 12.0-20.0 % Calcium 9.1 8.7-10.4 MG/DL Osmo Serum,Calculated 312 280-300 MOSM/KG Schedule Confirmation Reviewed date:01/06/2024 07:40:15 PM Interpretation: Performing Lab: Notes/Report: CT Chest [place] 25950 Reviewed date:01/01/2024 05:25:24 PM Interpretation: Performing Lab: Notes/Report: BG 221 @0120, pt states had c-diff multiple times. bm in urine. no sample yet. 3516 @ 0150 3516 @ 0150 CRP 3.93 .40-1.00 MG/DL CRP [id number] Reviewed date:12/31/2023 11:21:23 AM Interpretation: Performing Lab: Notes/Report: BG 221 @0120, pt states had c-diff multiple times. bm in urine. no sample yet. 3516 @ 0150 3516 @ 0150 CRP 22.60 .40-1.00 MG/DL % Iron Saturation (Fe & TIBC )--91788,93729 Reviewed date:12/29/2023 06:07:48 PM Interpretation: Performing Lab: Notes/Report: BG 221 @0120, pt states had c-diff multiple times. bm in urine. no sample yet. 3516 @ 0150 3516 @ 0150 Iron 9 50-170 MCG/DL Per Iron assay instruction for Use(IFU), patients treated with metal-binding drugs (e.g.deferoxamine) may have depressed iron values as chelated iron may not properly react in the iron assay. Testing was performed with this assay method. TIBC 130 250-450 NG/DL % Iron Saturation 7 20-50 % C Diff Toxin EIA--86113 Reviewed date:11/07/2023 04:40:25 PM Interpretation: Performing Lab: Notes/Report: CDiff Toxin EIA ALCIRA Plascencia CDiff Toxin EIA t: CDiff Toxin EIA CDiff Toxin EIA [facility] [id number] CDiff Toxin EIA n: CDiff Toxin EIA Microbiology CDiff Toxin EIA PROCEDURE: CDiff Tox in EIA [i1] CDiff Toxin EIA SOURCE: Stool BODY SITE: CDiff Toxin EIA COLLECTED DATE/TIME: 11/05/2023 19:45 CDT RECEIVED DATE/TIME: 11/05/2023 19:50 CDT CDiff Toxin EIA START DATE/TIME: 11/05/2023 19:50 CDT FREE TEXT SOURCE: CDiff Toxin EIA FINAL REPORT CDiff Toxin EIA Final Report [] CDiff Toxin EIA Verified Date/Time: 11/05/2023 21:24 CDT CDiff Toxin EIA Positive for Clostri dium difficile toxin A and/or B CDiff Toxin EIA Interpretive Data CDiff Toxin EIA i1: CDiff Toxin EIA CDiff Toxin EIA A positive result indicates that Clostidium difficlyubov is present and is producing toxin CDiff Toxin EIA that is responsible for C. difficile infection. Treatment of a patient yielding a positive CDiff Toxin EIA PCR result with a negative toxin result should be based on clinical symptoms. CDiff Toxin EIA ---- CDiff Toxin EIA PROCEDURE: CDiff/Ep i [i2] CDiff Toxin EIA SOURCE: Stool BODY SITE: CDiff Toxin EIA COLLECTED DATE/TIME: 11/05/2023 19:45 CDT RECEIVED DATE/TIME: 11/05/2023 19:50 CDT CDiff Toxin EIA START DATE/TIME: 11/05/2023 19:50 CDT FREE TEXT SOURCE: CDiff Toxin EIA FINAL REPORT CDiff Toxin EIA Final Report [] CDiff Toxin EIA Verified Date/Time: 11/05/2023 19:51 CDT CDiff Toxin EIA 027-NAP1-BI PRESUMPT CONSTANTINE NEGATIVE CDiff Toxin EIA Interpretive Data CDiff Toxin EIA i2: CDiff/Epi CDiff Toxin EIA A positive result indicates the presence of the virulent strain Clostridium difficile CDiff Toxin EIA 027-NAP1-BI that is capable of producing toxin. It does not indicate toxin production. CDiff Toxin EIA Toxin testing will b e performed on PCR positive results. CDiff/Epi--40013 Reviewed date:11/07/2023 04:40:25 PM Interpretation: Performing Lab: Notes/Report: CDiff/Epi ALCIRA Plascencia CDiff/Epi t: CDiff/Epi CDiff/Epi Accessio [id number] CDiff/Epi n: CDiff/Epi Microbiology CDiff/Epi PROCEDURE: CDiff/Epi [i1] CDiff/Epi SOURCE: Stool BODY SITE: CDiff/Epi COLLECTED DATE/TIME: 11/05/2023 19:45 CDT RECEIVED DATE/TIME: 11/05/2023 19:50 CDT CDiff/Epi START DATE/TIME: 11/05/2023 19:50 CDT FREE TEXT SOURCE: CDiff/Epi FINAL REPORT CDiff/Epi Final Report [] CDiff/Epi Verified Date/Time: 11/05/2023 19:51 CDT CDiff/Epi 027-NAP1-BI PRESUMPT CONSTANTINE NEGATIVE CDiff/Epi Interpretive Data CDiff/Epi i1: CDiff/Epi CDiff/Epi A positive result indicates the presence of the virulent strain Clostridium difficile CDiff/Epi 027-NAP1-BI that is capable of producing toxin. It does not indicate toxin production. CDiff/Epi Toxin testing will b e performed on PCR positive results. CDiff PCR Rfx C diff Toxin N AP/EPI 84407, 60619 Reviewed date:11/07/2023 04:40:25 PM Interpretation: Performing Lab: Notes/Report: CDiff PCR Reflex POSITIVE A positive result by PCR indicates the presence of Clostridium difficile bacteria that is capable of producing toxin. It does not indicate toxin production; treatment should be based on clinical symptoms. Toxin testing will be performed on PCR positive results. Retrograde Urography Reviewed date:11/07/2023 03:57:24 PM Interpretation: Performing Lab: Notes/Report: See Below For Report Retrograde Urography Read See Below For Report Retrograde Urography Reviewed date:11/07/2023 03:57:24 PM Interpretation: Performing Lab: Notes/Report: [id number] Glucometer WBG--65251 Reviewed date:11/07/2023 04:40:25 PM Interpretation: Performing Lab: Notes/Report: Glucometer WBG 184 65-110 MG/DL Result Not Confirmed~Meter: [id number]~Kiln Remover: [id number] LINDA ARTIS Glucometer WBG--83159 Reviewed date:10/09/2023 11:16:04 AM Interpretation: Performing Lab: Notes/Report: 5408 Glucometer WBG 81 65-110 MG/DL Meter: [id number]~Kiln Remover: [id number] LUIS ALFREDO MONTEIRO Glucometer WBG--[id number] Reviewed date:10/09/2023 11:16:04 AM Interpretation: Performing Lab: Notes/Report: 5408 Glucometer WBG 62 65-110 MG/DL Meter: [id number]~Kiln Remover: [id number] LUIS ALFREDO MONTEIRO CBC w\ Auto Diff 53576 Reviewed date:10/09/2023 11:16:04 AM Interpretation: Performing Lab: Notes/Report: 5408 WBC 7.8 4.5-11.0 X10'3 RBC 2.80 4.00-5.20 X10'6 Hgb 8.0 12.0-16.0 G/DL Hct 25.6 36.0-46.0 % delta check not ed MCV 91.4 80.0-100.0 FL delta check no ashley MCH 28.6 27.0-31.0 PG MCHC 31.3 31.0-37.0 G/DL Platelet 137 150-400 X10'3 RDW-SD 46.2 35.0-49.0 FL RDW-CV 13.7 12.2-15.6 % MPV 11.8 9.2-12.0 FL Neutro Auto% 46.5 40.0-70.0 % Lymph Auto% 26.1 22.0-44.0 % Corson Auto% 26.1 3.0-7.0 % Eos Auto% .3 2.0-4.0 % Baso Auto% 0.1 0.0-1.0 % Imm Gran% .9 .0-.4 % Neutro Abs 3.65 .80-7.70 Absolute Neutrophil Count 3650 Lymph Abs 2.05 .10-4.10 Corson Abs 2.05 .20-1.00 Eos Abs .02 .00-.40 Baso Abs .01 .00-.20 Imm Gran Abs .07 .00-.10 NRBC# .00 .00-.20 X10'3 NRBC% .00 .00-.20 /100 intact WBC's Basic Metabolic Panel (BMP) 56526 Reviewed date:10/09/2023 11:16:04 AM Interpretation: Performing Lab: Notes/Report: 5408 Sodium 140 136-145 MMOL/L Potassium 5.0 3.5-5.1 MMOL/L Chloride 116 98-107 MMOL/L CO2 17.4 20.0-31.0 MMOL/L Glucose Serum 83 71-110 MG/DL Testing perfor med at [facility], [address] [place] [address] [place] [address]. CLIA ID#: [id number] BUN 38 7-21 MG/DL Creat 2.03 .51-1.17 MG/DL W-qdptlp-u-benzoquino ne imine (NAPQI) is a metabolite of acetaminophen, NAPQI concentrations of apparoximately 10 mg/L correlation to toxic levels of acetaminophen demonstrates a greater than or equil to 10% change in results. NAPQI concentrations greater than this may lead to falsely depressed results for patient samples. Use of this assay is not recommended for patients undergoing treatment with phenindione, due to the potential for falsely depressed results. GFR 25.8 Calculation per formed from GFR calculator provided by the National Kidney Foundation. Glomerular Filtration rate(GRF) is the best overall index of kidney function. Normal GFR varies according to age,sex, body size, and declines with age. The National Kidney Foundation recommends using the CKD-EPI Creatinine Equation(2020) to estimate GFR. Anion Gap 12 5-15 BUN/Creat Ratio 18.7 12.0-20.0 % Calcium 8.5 8.7-10.4 MG/DL Osmo Serum,Calculated 298 280-300 MOSM/KG Glucometer WBG--65697 Reviewed date:10/09/2023 11:16:04 AM Interpretation: Performing Lab: Notes/Report: 5408 Glucometer WBG 229 65-110 MG/DL Sliding Scale Given~Meter: [id number]~Kiln Remover: [id number] ALFRED RAMSAY Glucometer WBG--05993 Reviewed date:10/09/2023 11:16:04 AM Interpretation: Performing Lab: Notes/Report: 5408 Glucometer WBG 277 65-110 MG/DL Notify RN~Met er: [id number]~Kiln Remover: [id number] CHRIS CHICA Glucometer WBG--80778 Reviewed date:10/09/2023 11:16:04 AM Interpretation: Performing Lab: Notes/Report: 5408 Glucometer WBG 309 65-110 MG/DL Notify RN~Met er: [id number]~Kiln Remover: [id number] CHRIS COTO Glucometer WBG--93975 Reviewed date:10/09/2023 11:16:04 AM Interpretation: Performing Lab: Notes/Report: 5408 Glucometer WBG 140 65-110 MG/DL Notify RN~Met er: [id number]~Kiln Remover: [id number] CHRIS COTO Retrograde Urography Reviewed date:10/09/2023 08:09:41 AM Interpretation: Performing Lab: Notes/Report: See Below For Report Retrograde Urography 5408 Read See Below For Report Culture Urine Reflex--[id number] Reviewed date:10/07/2023 07:42:31 AM Interpretation: Performing Lab: Notes/Report: Culture Urine Reflex ALCIRA Plascencia Zachary Culture Urine Reflex t: Culture Urine Reflex Culture Urine Reflex Accessio [id number] Culture Urine Reflex n: Culture Urine Reflex Microbiology Culture Urine Reflex PROCEDURE: Culture Urine Reflex [] Culture Urine Reflex SOURCE: Urine BODY SITE: Culture Urine Reflex COLLECTED DATE/TIME : 10/05/2023 10:16 CDT RECEIVED DATE/TIME: 10/05/2023 10:30 CDT Culture Urine Reflex START DATE/TIME: 10/05/2023 10:30 CDT FREE TEXT SOURCE: Culture Urine Reflex PRELIMINARY REPORT Culture Urine Reflex Preliminary Report [] Culture Urine Reflex Verified Date/Time: 10/06/2023 09:21 CDT Culture Urine Reflex >100,000 cfu/ml. Gr am Negative Rods Culture Urine Reflex Identification and KAREEM to follow Culture Urine 99862 Reviewed date:10/07/2023 07:42:40 AM Interpretation: Performing Lab: Notes/Report: Culture Urine ALCIRA Plascencia Zachary Culture Urine t: Culture Urine Culture Urine Accessio [id number] Culture Urine n: Culture Urine Microbiology Culture Urine PROCEDURE: Culture U rine [] Culture Urine SOURCE: U CC BODY SITE: Culture Urine COLLECTED DATE/TIME: 10/05/2023 11:50 CDT RECEIVED DATE/TIME: 10/05/2023 18:05 CDT Culture Urine START DATE/TIME: 10/05/2023 18:05 CDT FREE TEXT SOURCE: Culture Urine PRELIMINARY REPORT Culture Urine Preliminary Report [] Culture Urine Verified Date/Time: 10/06/2023 09:07 CDT Culture Urine >10,000 cfu/ml Gram Negative Rods Culture Urine Identification and M IC to follow Glucometer WBG--77995 Reviewed date:10/09/2023 11:15:46 AM Interpretation: Performing Lab: Notes/Report: 5408 Glucometer WBG 80 65-110 MG/DL Meter: [id number]~Kiln Remover: [id number] MITRANO DONNA Glucometer WBG--81242 Reviewed date:10/09/2023 11:15:46 AM Interpretation: Performing Lab: Notes/Report: 5408 Glucometer WBG 75 65-110 MG/DL Meter: [id number]~Kiln Remover: [id number] LUIS ALFREDO MONTEIRO CBC w\ Auto Diff 89846 Reviewed date:10/09/2023 11:15:46 AM Interpretation: Performing Lab: Notes/Report: 5408 WBC 14.7 4.5-11.0 X10'3 RBC 3.31 4.00-5.20 X10'6 Hgb 9.4 12.0-16.0 G/DL Hct 33.1 36.0-46.0 % MCV 100.0 80.0-100.0 FL noted MCH 28.4 27.0-31.0 PG MCHC 28.4 31.0-37.0 G/DL Platelet 165 150-400 X10'3 RDW-SD 51.5 35.0-49.0 FL RDW-CV 13.9 12.2-15.6 % MPV 11.5 9.2-12.0 FL Neutro Auto% 41.7 40.0-70.0 % Lymph Auto% 24.1 22.0-44.0 % Corson Auto% 33.0 3.0-7.0 % Eos Auto% .5 2.0-4.0 % Baso Auto% 0.2 0.0-1.0 % Imm Gran% .5 .0-.4 % Neutro Abs 6.14 .80-7.70 Absolute Neutrophil Count 6140 Lymph Abs 3.55 .10-4.10 Corson Abs 4.86 .20-1.00 Eos Abs .08 .00-.40 Baso Abs .03 .00-.20 Imm Gran Abs .07 .00-.10 NRBC# .00 .00-.20 X10'3 NRBC% .00 .00-.20 /100 intact WBC's Basic Metabolic Panel (BMP) 87536 Reviewed date:10/09/2023 11:15:46 AM Interpretation: Performing Lab: Notes/Report: 5408 Sodium 138 136-145 MMOL/L Potassium 5.4 3.5-5.1 MMOL/L Chloride 112 98-107 MMOL/L CO2 19.0 20.0-31.0 MMOL/L Glucose Serum 76 71-110 MG/DL Testing perfor med at [facility], [address] [place] [address] [place] [address]. CLIA ID#: [id number] BUN 33 7-21 MG/DL Creat 2.27 .51-1.17 MG/DL H-agrhof-w-benzoquino ne imine (NAPQI) is a metabolite of acetaminophen, NAPQI concentrations of apparoximately 10 mg/L correlation to toxic levels of acetaminophen demonstrates a greater than or equil to 10% change in results. NAPQI concentrations greater than this may lead to falsely depressed results for patient samples. Use of this assay is not recommended for patients undergoing treatment with phenindione, due to the potential for falsely depressed results. GFR 22.6 Calculation per formed from GFR calculator provided by the National Kidney Foundation. Glomerular Filtration rate(GRF) is the best overall index of kidney function. Normal GFR varies according to age,sex, body size, and declines with age. The National Kidney Foundation recommends using the CKD-EPI Creatinine Equation(2020) to estimate GFR. Anion Gap 12 5-15 BUN/Creat Ratio 14.5 12.0-20.0 % Calcium 8.8 8.7-10.4 MG/DL Osmo Serum,Calculated 292 280-300 MOSM/KG Glucometer WBG--27682 Reviewed date:10/09/2023 11:15:46 AM Interpretation: Performing Lab: Notes/Report: 5408 Glucometer WBG 159 65-110 MG/DL Sliding Scale Given~Meter: [id number]~Kiln Remover: [id number] LUIS ALFREDO MONTEIRO Glucometer WBG--21610 Reviewed date:10/09/2023 11:15:46 AM Interpretation: Performing Lab: Notes/Report: 5408 Glucometer WBG 135 65-110 MG/DL Result Not Confirmed~Meter: [id number]~Kiln Remover: [id number] CHRIS COTO Chest 1V Reviewed date:10/09/2023 09:14:54 AM Interpretation: Performing Lab: Notes/Report: See Below For Report Chest 1V IV team called in. Lab needs more blood. Read See Below For Report CDiff PCR Rfx C diff Toxin N AP/EPI 19784, 85817 Reviewed date:02/07/2024 10:52:03 AM Interpretation: Performing Lab: Notes/Report: Diagnosis Description: Other bacterial infections of unspecified site patient sent with stool collection kit 01/30/2024 12:13:00 fboyd CDiff PCR Reflex POSITIVE A positive result by PCR indicates the presence of Clostridium difficile bacteria that is capable of producing toxin. It does not indicate toxin production; treatment should be based on clinical symptoms. Toxin testing will be performed on PCR positive results. Microscopic Urine 22893 Reviewed date:01/31/2024 08:23:54 AM Interpretation: Performing Lab: Notes/Report: Diagnosis Description: Tubulo-interstitial nephritis, not specified as acute or chronic RBC U 249 WBC U 165 0-5 /HPF Bacteria None Seen Hyaline Casts 1 SQ EPI 1 Culture Urine 12062 Reviewed date:02/04/2024 02:38:48 PM Interpretation: Performing Lab: Notes/Report: Culture Urine Matthew BECKMAN ALCIRA CASEHRYN Culture Urine t: Culture Urine Culture Urine Accessio [id number] Culture Urine n: Culture Urine Microbiology Culture Urine PROCEDURE: Culture U rine [O1] Culture Urine SOURCE: Urine BODY SITE: Culture Urine COLLECTED DATE/TIME: 01/30/2024 12:10 CAPITAL PROJECT ENGINEER RECEIVED DATE/TIME: 01/30/2024 13:28 CAPITAL PROJECT ENGINEER Culture Urine START DATE/TIME: 01/30/2024 13:28 CAPITAL PROJECT ENGINEER FREE TEXT SOURCE: Culture Urine FINAL REPORT Culture Urine Final Report [] Culture Urine Verified Date/Time: 02/01/2024 05:16 CAPITAL PROJECT ENGINEER Culture Urine <10,000 cfu/ml Mixed Superficial Юлия Culture Urine Order Comments Culture Urine O1: Culture Urine (Culture Urine 07879) Culture Urine Diagnosis Descriptio n: Tubulo-interstitial nephritis, not specified as acute or chronic CRP 05966 Reviewed date:01/10/2024 11:40:19 AM Interpretation: Performing Lab: Notes/Report: Diagnosis Description: Urinary tract infection, site not specified CRP 5.68 .40-1.00 MG/DL Comprehensive Metabolic Pane l (CMP) 97075 Reviewed date:01/10/2024 11:40:19 AM Interpretation: Performing Lab: Notes/Report: Diagnosis Description: Urinary tract infection, site not specified Glucose Serum 155 71-110 MG/DL Testing perfor med at [facility], [address] [place] [address] [place] [address]. CLIA ID#: [id number] BUN 12 7-21 MG/DL Creat 1.46 .51-1.17 MG/DL G-witrrs-e-benzoquino ne imine (NAPQI) is a metabolite of acetaminophen, NAPQI concentrations of apparoximately 10 mg/L correlation to toxic levels of acetaminophen demonstrates a greater than or equil to 10% change in results. NAPQI concentrations greater than this may lead to falsely depressed results for patient samples. Use of this assay is not recommended for patients undergoing treatment with phenindione, due to the potential for falsely depressed results. GFR 38.3 Calculation per formed from GFR calculator provided by the National Kidney Foundation. Glomerular Filtration rate(GRF) is the best overall index of kidney function. Normal GFR varies according to age,sex, body size, and declines with age. The National Kidney Foundation recommends using the CKD-EPI Creatinine Equation(2020) to estimate GFR. BUN/Creat Ratio 8.2 12.0-20.0 % Total Protein 6.6 5.8-8.0 G/DL Albumin 3.5 3.2-4.8 G/DL Globulin 3.0 2.3-3.5 G/DL Alb/Glob 1.2 0.8-2.2 Calcium 8.6 8.7-10.4 MG/DL Sodium 143 136-145 MMOL/L Potassium 4.0 3.5-5.1 MMOL/L Chloride 109 98-107 MMOL/L CO2 27.6 20.0-31.0 MMOL/L Anion Gap 10 5-15 Alk Phos 84 46-116 Bili Total .4 .3-1.2 MG/DL Use of this ass ay is not recommended for patients undergoing treatment with eltrombopag due to the potential for falsely elevated results. AST/SGOT <8 15-37 UNIT/L ALT/SGPT <7 12-78 UNIT/L Osmo Serum,Calculated 299 280-300 MOSM/KG CBC w\ Auto Diff 91805 Reviewed date:01/10/2024 11:40:19 AM Interpretation: Performing Lab: Notes/Report: Diagnosis Description: Urinary tract infection, site not specified WBC 12.6 4.5-11.0 X10'3 RBC 2.86 4.00-5.20 X10'6 Hgb 7.7 12.0-16.0 G/DL Hct 27.2 36.0-46.0 % MCV 95.1 80.0-100.0 FL MCH 26.9 27.0-31.0 PG MCHC 28.3 31.0-37.0 G/DL Platelet 147 150-400 X10'3 RDW-SD 56.0 35.0-49.0 FL RDW-CV 16.4 12.2-15.6 % MPV 11.6 9.2-12.0 FL Neutro Auto% 53.0 40.0-70.0 % Lymph Auto% 22.8 22.0-44.0 % Corson Auto% 22.2 3.0-7.0 % Eos Auto% .6 2.0-4.0 % Baso Auto% 0.2 0.0-1.0 % Imm Gran% 1.2 .0-.4 % Neutro Abs 6.69 .80-7.70 Absolute Neutrophil Count 6690 Lymph Abs 2.88 .10-4.10 Corson Abs 2.80 .20-1.00 Eos Abs .07 .00-.40 Baso Abs .02 .00-.20 Imm Gran Abs .15 .00-.10 NRBC# .00 .00-.20 X10'3 NRBC% .00 .00-.20 /100 intact WBC's UA Microscopic--08350 Reviewed date:08/25/2024 10:11:11 AM Interpretation:earl 08/24/24 Performing Lab: Notes/Report: RBC U 198 WBC U 351 0-5 /HPF Bacteria 1+ Hyaline Casts 4 SQ EPI 1 Basic Metabolic Panel (BMP) 59100 Reviewed date:09/03/2024 07:53:39 PM Interpretation: Performing Lab: Notes/Report: Diagnosis Description: Hypertensive chronic kidney disease with stage 1 through stage 4 chronic kidney disease, or unspecified chronic kidney disease 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 [address]. CLIA ID#: [id number] BUN 42 7-21 MG/DL Creat 1.80 .51-1.17 MG/DL U-pkpskr-v-benzoquino ne imine (NAPQI) is a metabolite of acetaminophen, NAPQI concentrations of apparoximately 10 mg/L correlation to toxic levels of acetaminophen demonstrates a greater than or equil to 10% change in results. NAPQI concentrations greater than this may lead to falsely depressed results for patient samples. Use of this assay is not recommended for patients undergoing treatment with phenindione, due to the potential for falsely depressed results. GFR 29.8 Calculation per formed from GFR calculator provided by the National Kid[employer] Foundation. Glomerular Filtration rate(GRF) is the best overall index of kidney function. Normal GFR varies according to age,sex, body size, and declines with age. The National Kidney Foundation recommends using the CKD-EPI Creatinine Equation(2020) to estimate GFR. Anion Gap 15 5-15 BUN/Creat Ratio 23.3 12.0-20.0 % Calcium 9.2 8.7-10.4 MG/DL Osmo Serum,Calculated 305 280-300 MOSM/KG Reason For Referral Reason Nodules of Lung - osei spected malignancy - Imaging Scheduled 11/26/23 @ 10:50 AM Diagnosis 1 Other nonspecific ab normal finding of lung field (R91.8) Referring Provider First Name Celia Referring Provider Last Name Heriberto Referring Provider Speciality Family [facility] Referred Organization [facility] Referred Provider Corky Lorenzo Referred Address [address] [place] [address] [place],[id number], Referred Provider Specialty Pulmonary Di seases General Notes Yolanda Stephens 024 04:05:05 PM >Scheduled 11/26/23 @ 10:50 AM Referral Priority Stat Reason Eval and treat Chr onic Diarrhea Is now cleared from C- diff Diagnosis 1 C. 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) Referral Organization [facility] rna Medicine & Infectious Disease Referring Provider First Name Abelardo Referring Provider Last Name Mariposa Referring Provider Speciality Infectious Disease Referred Provider [facility] Referred Provider Specialty Oncology Referral Priority Routine Medications Medication SIG (Take, Route, Frequency, Duration) Notes Start Date End Date Status Sodium Chloride 0.9 % Intravenous for 4 Days Not-Taking Vancomycin HCl 125 MG 1 capsule Orally every 6 hours 01/09/2024 Not-Taking Probiotic Acidophilus Not-Taking Lisinopril 20 MG 1 tablet Orally Once a day for 30 days Active Procardia XL 30 MG 1 tablet Orally Once a day for 7 days 01/24/2024 Not-Taking Plavix Not-Taking Atorvastatin Calcium 40 MG TAKE 1 TABLET BY MOUTH ONCE DAILY Oral for 30 Days Active Baby Aspirin Active Acidophilus - as directed Orally Active FeroSul 325 (65 Fe) MG TAKE 1 TABLET BY MOUTH TWICE DAILY Oral for 90 Days Active BD PosiFlush 0.9 % Intravenous for 4 Days Active Cefdinir 300 MG as directed Orally daily for 30 days 05/26/2024 09/23/2024 Active Fluconazole 150 MG 1 tablet Orally Mon,Wed,Sat Active Metoprolol Succinate ER 50 MG Oral for 90 Days Active Midodrine HCl 5 MG 1 tablet Orally Three times a day 01/09/2024 Not-Taking NIFEdipine ER 30 MG 1 tablet on an empty stomach Orally Once a day Not-Taking glyBURIDE 2.5 MG 1 tablet with breakfast or the first main meal of the day Oral Once a day for 90 days Active Levothyroxine Sodium 88 MCG 1 tablet in the morning on an empty stomach Oral Once a day for 90 days Active hydrALAZINE HCl 25 MG 1 tablet with food Orally Twice a day for 30 days 08/31/2024 Active Aspirin 81 MG 1 capsule Orally Once a day Not-Taking Cefdinir 300 MG as directed Orally Once a day Not-Taking Tamsulosin HCl 0.4 MG Oral for 90 Days Active Heparin Na (Pork) Lock Flsh PF 100 UNIT/ML Intravenous for 4 Days Not-Taking Lactobacillus Not-Ta linda cefTRIAXone Sodium 2 GM as directed Injection Not-Taking Dificid 200 MG 1 tablet Orally Twice a day for 10 days Not-Taking Fluconazole 150 MG 1 tablet Orally Saturday,Sat,Sat Active Acetaminophen Extra Strength 500 MG 1 tablet as needed Orally every 6 hrs as needed Active Loperamide HCl Not-T aking Magnesium Oxide 400 MG 1 tablet as needed Orally BID 01/09/2024 Not-Taking Social History Tobacco Use: Social History Observation Description Date Details (start date - stop date) Former Smoker NA - NA Tobacco Control (Standard) Question Answer Notes Tobacco use: Former smoker How long has it been since you last smoked? 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 confirmed Problem Anemia in chronic kidney disease (699313606) Anemia in chronic kidney disease (D63.1) Active confirmed Problem Hypomagnesemia (264453263) Hypomagnesemia (E83.42) Active confirmed Problem Hypocalcemia (0468460) Hypocalcemia (E83.51) Active confirmed Problem Tobacco user (320310312) Nicotine dependence, cigarettes, in remission (F17.211) Active confirmed Problem Chronic kidney disease due to hypertension (197371677625895) Hypertensive chronic kidney disease with stage 1 through stage 4 chronic kidney disease, or unspecified chronic kidney disease (I12.9) Active confirmed Problem Chronic kidney disease stage 4 (543626715) Chronic kidney disease, stage 4 (severe) (N18.4) Active confirmed Problem 941936593 Presence of urogenital implants (Z96.0) Active confirmed Problem 55148328 Essential hypertension (I10) Active confirmed Problem 59856324 Type 2 diabetes mellitus without complication, without long-term current use of insulin (E11.9) Active confirmed Problem Microscopic hematuria (256142793) Microscopic hematuria (R31.29) Active confirmed Problem Hypophosphatemia (6299472) Hypophosphatemia (E83.39) Active confirmed Problem Vitamin D deficiency (53633756) Vitamin D deficiency (E55.9) Active confirmed Problem 00329073 MATT (obstructive sleep apnea) (G47.33) Active confirmed Problem 831600518 Malignant neopla sm of urinary bladder, unspecified site (C67.9) Active confirmed Problem Leukocytosis (839701527) Leukocytosis, unspecified (D72.829) Active confirmed Problem Non-Hodgkin lymphoma (455891542) Lymphoma, non-Hodgkin's (C85.90) Active confirmed Problem 830466728 Recurrent UTI (N39.0) Active confirmed Problem Iron deficiency anemia (00031129) Iron deficiency anemia (D50.9) Active confirmed Problem Lung field abnormal (998468152) Multiple pulmonary nodules determined by computed tomography of lung (R91.8) Active confirmed Problem 854058697 History of hematuria (Z87.448) Active confirmed Problem Bilateral hydronephrosis (46294232) Bilateral hydronephrosis (N13.30) Active confirmed Problem Chronic renal failure syndrome (53233886) Chronic kidney failure (N18.9) Active confirmed Problem Personal history of primary malignant neoplasm of female genital organ (173369869) History of endometrial cancer (Z85.42) Active confirmed Problem 52278179 Hydronephrosis, left (N13.30) Active confirmed Problem 79201906 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) Active confirmed Problem Bladder mass (033731049) Bladder mass (N32.89) Active confirmed Problem Retention of urine (134377483) History of urinary retention (Z87.898) Active confirmed Problem Nephrosclerosis (95970663) Atrophic kidney (N26.1) Active confirmed Problem Hydronephrosis with renal and ureteral calculous obstruction (588243964) Hydronephrosis with ureteral calculus (N13.2) Active confirmed Problem Diabetic renal disease (924085913) 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) Active confirmed Problem 680045475 Chronic kidney disease, stage 3b (N18.32) Active confirmed Problem 519554131 Stage 3b chronic kidney disease (N18.32) Active confirmed Problem 957877053913252 History of sepsi s (Z86.19) Active confirmed Problem 7967817019 Ureteral stent present (Z96.0) Active confirmed Problem Renal tubulo-interstitial disease (542538815) Renal tubulo-interstitia l disease (N15.9) Active confirmed Problem 518759739 History of lymphoma (Z85.72) Active confirmed Vital Signs Heart Rate 74 /min 08/24/2024 Temperature 97.5 degrees Fahrenheit 08/24/2024 Respiratory Rate 16 /min 08/24/2024 Height-cm 160.02 cm 08/24/2024 Oximetry 99 % 08/24/2024 Blood pressure diastolic 50 mm Hg 08/24/2024 Weight-kg 98.2 kg 08/24/2024 Height 63 in 08/24/2024 Blood pressure systolic 130 mm Hg 08/24/2024 Weight 216.49 lbs 08/24/2024 BMI 38.35 kg/m2 08/24/2024 Encounters Encounter Location Date Provider Diagnosis [facility] [address] [place] [address] [address] [place] [address] 11/26/2023 Corky Lorenzo Nicotine dependence, cigarettes, in remission F17.211 and Multiple pulmonary nodules determined by computed tomography of lung R91.8 [facility] [address] [place] [address] Dr [address] [place] [address] 11/29/2023 Mansi Stratmoecesia Proteinuria, unspecified type R80.9 ; Chronic kidney disease, stage 3b N18.32 ; Essential hypertension I10 and Type 2 diabetes with nephropathy E11.21 [facility] [address] [place] [address] [address] [place] [address] 12/10/2023 Corky Lorenzo Former smoker Z87.891 and Multiple pulmonary nodules determined by computed tomography of lung R91.8 [facility] [address] [place] [address] [place] [address] 01/09/2024 Amrita Prasad Complicated UTI (urinary tract infection) N39.0 ; Clostridium difficile infection A49.8 ; Pyelonephritis N12 ; Lymphoma, non-Hodgkin's C85.90 ; Chronic kidney failure N18.9 and Chronic kidney disease, stage 3b N18.32 [facility] [address] [place] [address], [place] [address] 01/14/2024 Corky Lorenzo Former smoker Z87.891 and Multiple pulmonary nodules determined by computed tomography of lung R91.8 [facility] [address] [place] [address], [place] [address] 01/14/2024 Amrita Charlotte Former smoker Z87.891 ; Multiple pulmonary nodules determined by computed tomography of lung R91.8 ; Complicated UTI (urinary tract infection) N39.0 ; Clostridium difficile infection A49.8 ; Pyelonephritis N12 ; Lymphoma, non-Hodgkin's C85.90 ; Chronic kidney failure N18.9 and Chronic kidney disease, stage 3b N18.32 [facility] [address] [place] [address], [place] [address] 01/24/2024 Amrita Osmar Former smoker Z87.891 ; Multiple pulmonary nodules determined by computed tomography of lung R91.8 ; Complicated UTI (urinary tract infection) N39.0 ; Clostridium difficile infection A49.8 ; Pyelonephritis N12 ; Lymphoma, non-Hodgkin's C85.90 ; Chronic kidney failure N18.9 and Chronic kidney disease, stage 3b N18.32 [facility] [address] [place] [address], [place] [address] 01/30/2024 Amrita Charlotte Complicated UTI (urinary tract infection) N39.0 ; Clostridium difficile infection A49.8 ; Pyelonephritis N12 ; Lymphoma, non-Hodgkin's C85.90 ; Chronic kidney failure N18.9 and Chronic kidney disease, stage 3b N18.32 [facility] [address] [place] [address], [place] [address] 02/06/2024 Amrita Charlotte Complicated UTI (urinary tract infection) N39.0 ; Clostridium difficile infection A49.8 ; Pyelonephritis N12 ; Lymphoma, non-Hodgkin's C85.90 ; Chronic kidney failure N18.9 and Chronic kidney disease, stage 3b N18.32 [facility] [address] [place] [address], [place] [address] 02/10/2024 Amrita Prasad Complicated UTI (urinary tract infection) N39.0 ; Clostridium difficile infection A49.8 ; Pyelonephritis N12 ; Lymphoma, non-Hodgkin's C85.90 ; Chronic kidney failure N18.9 and Chronic kidney disease, stage 3b N18.32 [facility] [address] [place] [address], [place] [address] 02/13/2024 Abelardo Mariposa Complicated UTI (urinary tract infection) N39.0 ; Clostridium difficile infection A49.8 ; Pyelonephritis N12 ; Lymphoma, non-Hodgkin's C85.90 ; Chronic kidney failure N18.9 and Chronic kidney disease, stage 3b N18.32 [facility] [address] [place] [address] Dr [address] [place] [address] 04/08/2024 Patriciagomez Ramírezff Chronic kidney disease, stage 3b N18.32 ; Hypertensive chronic kidney disease with stage 1 through stage 4 chronic kidney disease, or unspecified chronic kidney disease I12.9 ; Proteinuria, unspecified type R80.9 ; Essential hypertension I10 ; Type 2 diabetes with nephropathy E11.21 ; Hypokalemia E87.6 ; Hypocalcemia E83.51 and Anemia in chronic kidney disease D63.1 [facility] [address] [place] [address], [place] [address] 04/14/2024 Abelardo Mariposa Complicated UTI (urinary tract infection) N39.0 ; Clostridium difficile infection A49.8 ; Pyelonephritis N12 ; Lymphoma, non-Hodgkin's C85.90 ; Chronic kidney failure N18.9 and Chronic kidney disease, stage 3b N18.32 [facility] [address] [place] [address], [place] [address] 05/26/2024 Abelardo Mariposa Complicated UTI (urinary tract infection) N39.0 ; Clostridium difficile infection A49.8 ; Pyelonephritis N12 ; Lymphoma, non-Hodgkin's C85.90 ; Chronic kidney failure N18.9 and Chronic kidney disease, stage 3b N18.32 [facility] [address] [place] [address] 07/22/2024 Solomon Sanchez Chronic diarrhea K52.9 ; History of Clostridioides difficile colitis Z86.19 ; Personal history of other colon polyps Z86.0109 ; Essential hypertension I10 ; Type 2 diabetes mellitus without complication, without long-term current use of insulin E11.9 ; Chronic kidney disease, stage 3b N18.32 ; Anemia in chronic kidney disease D63.1 ; History of lymphoma Z85.72 ; History of endometrial cancer Z85.42 ; Nicotine dependence, cigarettes, in remission F17.211 and MATT (obstructive sleep apnea) G47.33 [facility] [address] [place] [address] Dr [address] [place] [address] 08/24/2024 Nish Martin Type 2 diabetes with nephropathy E11.21 ; Chronic kidney disease, stage 3b N18.32 ; Hypertensive chronic kidney disease with stage 1 through stage 4 chronic kidney disease, or unspecified chronic kidney disease I12.9 ; Essential hypertension I10 ; Hypokalemia E87.6 ; Hyperkalemia E87.5 ; Hyperchloremic metabolic acidosis E87.29 ; Anemia in chronic kidney disease D63.1 ; Nephrotic range proteinuria R80.9 and Hyperuricemia E79.0 [facility] [address] [place] [address] [place] [address] 08/24/2024 Abelardo Monge Complicated UTI (urinary tract infection) N39.0 ; Clostridium difficile infection A49.8 ; Pyelonephritis N12 ; Lymphoma, non-Hodgkin's C85.90 ; Chronic kidney failure N18.9 and Chronic kidney disease, stage 3b N18.32 [facility] [address] [place] [address] [place] [address] 12/04/2023 Corky Lorenzo [facility] [address] [place] [address] [place] [address] 01/02/2024 Corky Lorenzo [facility] [address] [place] [address] [place] [address] 01/10/2024 Nish Martin [facility] [address] [place] [address] [place] [address] 01/17/2024 Mansi Oliva [facility] [address] [place] [address] 01/30/2024 [facility] Infect[facility] Disease [address] [place] [address] 02/07/2024 [facility] [address] [place] [address] 02/10/2024 [facility] Complicated UTI (urinary tract infection) N39.0 ; Pyelonephritis N12 and Clostridium difficile infection A49.8 [facility] [address] [place] [address] 02/11/2024 [facility] [address] [place] [address] 02/11/2024 [facility] [address] [place] [address] 02/13/2024 [facility] [address] [place] [address] 02/18/2024 [facility] [address] [place] [address] 02/24/2024 [facility] [address] [place] [address] 02/28/2024 [facility] [address] [place] [address] 02/28/2024 [facility] [address] [place] [address] 02/28/[address] [facility] [address] [place] [address] 03/30/2024 Jen Caldwell [facility] [address] [place] [address] 04/02/2024 Abelardo Monge [facility] [place] [address] 04/17/2024 Patricia Cristina Vitamin D deficiency E55.9 [facility] [address] [place] [address], [place] [address] 04/20/2024 [facility] Internal Medicine [facility] Infect[facility] Disease [address] [place] [address], [place] [address] 04/27/2024 [facility] Infect[facility] Disease [address] [place] [address], [place] [address] 05/04/2024 [facility] [address] [place] [address] [place] [address] 08/18/2024 Patricia Cristina [facility] [address] [place] [address] [place] [address] 08/31/2024 Nish Martin Chronic kidney disease, stage 3b N18.32 and Hyperkalemia E87.5 Assessments Encounter Date Diagnosis (ICD Code) Assessment Notes Treatment Notes Treatment Clinical Notes Section Notes 02/10/2024 Complicated UTI (urinary tract infection) (ICD-10 - N39.0) 02/13/2024 Complicated UTI (urinary tract infection) (ICD-10 - N39.0) 1. 68 yo white female with a history of chronic kidney disease, hyperlipidemia , hypertension, hypothyroidism , microcytic anemia, morbid obesity, type 2 diabetes with vascular disease , endometrial cancer, lymphoma and sleep apnea. 2. recurrent complicated UTI's- stents in place 11-03-23 3. Resolved, CDiff. continue with PO Vanco PRN for prophylaxis.-1 03-28-23 neg PCR, Neg toxin for CDiff 6. Continued diarrhea, consult to see GI for colonoscopy -consult to see Oncologist, hx of mysentary lymphoma Labs 02-06-24 W 8.9, Striper 1.73, CRP 2.12 CDiff Negative for Clostridium difficile toxin A and/or B , CDiff /Epi NAP1-BI PRESUMPTIVE NEGATIVE , 02-10-24 UM RBC U 6, WBC U 637, Fernanda 3+, Hyaline cast 4, SQ epi 6, UC >100,000 cfu/ml. Citrobacter farmeri FOLLOW UP:2 months Hazel Cruz 02/10/2024 Pyelonephritis (ICD-10 - N12) 02/06/2024 Complicated UTI (urinary tract infection) (ICD-10 - N39.0) 1. Recurrent, complicated UTI's/Pyelonep hritis - 12-25-23; UW 816, UC a very sensitive Proteus, 11-29-23 UC Proteus, and Ec both VS - She is asymptomatic today - has stents in place 2. Antibiotics day #28 s/p stent exchange: Rocephin, Changed to p.o. Augmentin (last 5 days)- duration of therapy 4 weeks EOT -01-14-24; W 12.6, Striper 1.46, Crp 5.68 01-24-24; W 7.7, Striper 1.48, Crp 3.13 3. C. diff, PCR, and toxin positive admission 12-26-23; 02-06-24; Surveillance urine studies negative She was unable to leave stool sample for cdiff last week, stool was sent to the lab today (results pending 02-06-24) - This is her second recurrence of C. difficile, on her third reoccurrence she will qualify for FMT [place] Hold off on UTI prophylaxis until stool studies resulted Will recheck surveillance urine studies today,she will need continued prophylaxis plan for Augmentin with vancomycin She continues to have increased loose stools, begin Dificid, will await pending cultures Check labs today and follow-up on Saturday02/10/2024 Complicated UTI (urinary tract infection) (ICD-10 - N39.0) 1. Recurrent, complicated UTI's/Pyelonep hritis - 12-25-23; UW 816, UC a very sensitive Proteus, 11-29-23 UC Proteus, and Ec both VS - She is asymptomatic today - has stents in place 2. Antibiotics day #28 s/p stent exchange: Rocephin, Changed to p.o. Augmentin (last 5 days)- duration of therapy 4 weeks Completed treatment 01-14-24; W 12.6, Striper 1.46, Crp 5.68 01-24-24; W 7.7, Striper 1.48, Crp 3.13 3. C. diff, PCR, and toxin positive admission 12-26-23; - This is her second recurrence of C. difficile 4. Continued loose stools 02-10-24; W 8.9, Striper 1.73, Crp 2.12 Working on approval for FMT Sada She continues to have increased loose stools, begin Dificid, will await pending cultures DC Imodium 5. Dysuria - Give Invanz 1 gm IM today Will recheck urine studies and labs today, order CT scan abd/pelvis She will need continued UTI prophylaxis plan for Augmentin with vancomycin 04/08/2024 Hypertensive chronic kidney disease with stage 1 through stage 4 chronic kidney disease, or unspecified chronic kidney disease (ICD-10 - I12.9) Chronic kidney disease stage IIIb at baseline. CKD likely due to chronic urinary obstruction, chronic UTIs, Hypertension, Diabetes and Age. Hypertension is controlled at home but uncontrolled in clinic. Diabetes is controlled. Following with urology for ureteral stent exchanges and chronic UTI. Proteinuria is likely d/t recurrent UTIs. Hypokalemia is mild. Hypocalcemia is mild. Anemia is below goal with unknown iron status. 04/08/2024 Chronic kidney disease, stage 3b (ICD-10 - N18.32) Chronic Kidney Disease: Care Instructions material was printed Chronic kidney disease stage IIIb at baseline. CKD likely due to chronic urinary obstruction, chronic UTIs, Hypertension, Diabetes and Age. Hypertension is controlled at home but uncontrolled in clinic. Diabetes is controlled. Following with urology for ureteral stent exchanges and chronic UTI. Proteinuria is likely d/t recurrent UTIs. Hypokalemia is mild. Hypocalcemia is mild. Anemia is below goal with unknown iron status. 04/14/2024 Complicated UTI (urinary tract infection) (ICD-10 - N39.0) 1. 68 yo white female with a history of chronic kidney disease, hyperlipidemia , hypertension, hypothyroidism , microcytic anemia, morbid obesity, type 2 diabetes with vascular disease , endometrial cancer, lymphoma and sleep apnea. 2. Recurrent complicated UTI's - stents in place 11-03-23 - new stents were placed 03-28-2024 - Recurrent UTI 04-01-24 resolved s/p one week of Invanz - 04-14-24 Patient asymptomatic today 3. UTI Prophylaxis; - 04-14-24 Start Omnicef PO M,W,F for UTI prophylaxis 4. C Difficile Prophylaxis; - 04-14-24 Vancomycin PO BID for cdiff prophylaxis -01-21-25 Deficid PO BID (started 04-04-24) will be completed on 04-16-24 5. Continued diarrhea, consult to see GI for colonoscopy. Has appt scheduled in May 2024 -consult to see Oncologist, hx of mysentary lymphoma Labs 02-06-24 W 8.9, Striper 1.73, CRP 2.12 CDiff Negative for Clostridium difficile toxin A and/or B , CDiff /Epi NAP1-BI PRESUMPTIVE NEGATIVE , 02-10-24 UM RBC U 6, WBC U 637, Fernanda 3+, Hyaline cast 4, SQ epi 6, UC >100,000 cfu/ml. Citrobacter farmeri Follow up; 6 weeks Hazel Cruz 04/17/2024 Vitamin D deficiency (ICD-10 - E55.9) 05/26/2024 Complicated UTI (urinary tract infection) (ICD-10 - N39.0) 1. 68 yo white female with a history of chronic kidney disease, hyperlipidemia , hypertension, hypothyroidism , microcytic anemia, morbid obesity, type 2 diabetes with vascular disease, endometrial cancer, lymphoma and sleep apnea. 2.Hx of stroke 05-11-24 and waiting to see a Neurologist. -Hospitalized in [place] 3. Recurrent complicated UTI's - stents in place 11-03-23 - new stents were placed 03-28-2024 -Treated for UTI in 2024 while in hospital -05-28-24 asymptomatic today 4. UTI Prophylaxis; - Rx for Cefdinir called into pharmacy for UTI prophylaxis Sig; 1 pill Mon, Wed, Fri (start date 05-28-24) -pt is to call clinic if unable to afford this 5. C Difficile Prophylaxis; - 05-28-24 pt could not afford Vanco or Deficid so didnt take any. -05-28-24 still having intermitten diarrhea 6. Continued intermitten diarrhea, GI appt; scheduled in August 03, 2024 -consult to see Oncologist, hx of mysentary lymphoma Labs 02-06-24 W 8.9, Striper 1.73, CRP 2.12 CDiff Negative for Clostridium difficile toxin A and/or B , CDiff /Epi NAP1-BI PRESUMPTIVE NEGATIVE , 02-10-24 UM RBC U 6, WBC U 637, Fernanda 3+, Hyaline cast 4, SQ epi 6, UC >100,000 cfu/ml. Citrobacter farmeri Follow up; 3 months Hazel Cruz 07/22/2024 Chronic diarrhea (ICD-10 - K52.9) 07/22/2024 History of Clostridioides difficile colitis (ICD-10 - Z86.19) It appears diarrhea resolved between the time of referral and her arrival today. No need for additional C. difficile testing given her current bowel regimen. Provided extensive teaching regarding C. difficile pathophysiology, judicial use of antibiotics, and possibility of recurrence In which case stool transplant could be considered but again her history and physical are reassuring today. Return to GI clinic if symptoms recur. 08/24/2024 Type 2 diabetes with nephropathy (ICD-10 - E11.21) CKD is stable but baseline is difficult to discern. Hypertension is controlled at home and in clinic. Hypokalemia has resolved now with hyperkalemia, likely exacerbated by acidosis, which is new onset. Anemia is improved and now at goal with normal iron studies. Proteinuria has improved and is now non-nephrotic. Hyperuricemia is currently asymptomatic 11/26/2023 Nicotine dependence, cigarettes, in remission (ICD-10 - F17.211) She will smoked cigarettes for about a year before quitting in 1979. 11/26/2023 Multiple pulmonary nodules determined by computed tomography of lung (ICD-10 - R91.8) Obtain copies of prior chest CT imaging from [facility] as well as in [place], [place]. Also obtain PET/CT images from [place] [facility] [place]. We will compare to CT images from the ones we have here in our hospital obtained on November 04, 2023. If there is any sign of enlarging nodules she would need a biopsy. Risk factors include known history of lymphoma as well as remote smoking 11/29/2023 Chronic kidney disease, stage 3b (ICD-10 - N18.32) Chronic Kidney Disease: Care Instructions material was printed Chronic kidney disease stage IIIb based on current labs available, CKD likely due to chronic obstruction, Hypertension, Diabetes and Age. Hypertension is controlled. Diabetes is controlled by report. Following with urology for ureteral stent exchanges and chronic UTI. Proteinuria is likely d/t UTI. 12/10/2023 Former smoker (ICD-10 - Z87.891) Patient smoked cigarettes for about a year before quitting in 1979. 11/29/2023 Proteinuria, unspecified type (ICD-10 - R80.9) Chronic kidney disease stage IIIb based on current labs available, CKD likely due to chronic obstruction, Hypertension, Diabetes and Age. Hypertension is controlled. Diabetes is controlled by report. Following with urology for ureteral stent exchanges and chronic UTI. Proteinuria is likely d/t UTI. 01/09/2024 Complicated UTI (urinary tract infection) (ICD-10 - N39.0) 1. Recurrent, complicated UTI's/Pyelonep hritis - 12-25-23; UW 816, UC a very sensitive Proteus, 11-29-23 UC Proteus, and Ec both VS - She is asymptomatic today - has stents in place 2. Antibiotics day #13 s/p stent exchange: Rocephin- duration of therapy 4 weeks 3. C. diff, PCR, and toxin positive this admission 12-26-23; - Completed Vanco to QID for 10 days, needs to continue Vanco 125 mg twice daily for the remainder of Rocephin and 7 days after - This is her second recurrence of C. difficile, on her third reoccurrence she will qualify for FMT Sada Stools are returning to normal for her Check labs today in office, send orders to facility to continue vancomycin for duration of Rocephin and 7 days after She will return next Saturday the to coordinate appointments with Dr. Sandra for her pulmonary nodule evaluation She will return again on January 23 to coordinate for her last dose of IV Rocephin, daughter is paying [id number] for the last 4 doses We will administer her last dose of Rocephin here in the office on January 23 and then DC PICC line Follow-up in 1 week 01/09/2024 Clostridium difficile infection (ICD-10 - A49.8) 1. Recurrent, complicated UTI's/Pyelonep hritis - 24; UW 816, UC a very sensitive Proteus, 11-29-23 UC Proteus, and Ec both VS - She is asymptomatic today - has stents in place 2. Antibiotics day #13 s/p stent exchange: Rocephin- duration of therapy 4 weeks 3. C. diff, PCR, and toxin positive this admission 12-26-23; - Completed Vanco to QID for 10 days, needs to continue Vanco 125 mg twice daily for the remainder of Rocephin and 7 days after - This is her second recurrence of C. difficile, on her third reoccurrence she will qualify for FMT Rebyota Stools are returning to normal for her Check labs today in office, send orders to facility to continue vancomycin for duration of Rocephin and 7 days after She will return next Saturday to coordinate appointments with Dr. Sandra for her pulmonary nodule evaluation She will return again on January 23 to coordinate for her last dose of IV Rocephin, daughter is paying [id number] for the last 4 doses We will administer her last dose of Rocephin here in the office on January 23 and then DC PICC line Follow-up in 1 week 01/14/2024 Former smoker (ICD-10 - Z87.891) Patient smoked cigarettes for about a year before quitting in 1979. 01/14/2024 Former smoker (ICD-10 - Z87.891) 1. Recurrent, complicated UTI's/Pyelonep hritis - 12-25-23; UW 816, UC a very sensitive Proteus, 11-29-23 UC Proteus, and Ec both VS - She is asymptomatic today - has stents in place 2. Antibiotics day #18 s/p stent exchange: Rocephin- duration of therapy 4 weeks 01-14-24; W 12.6, Striper 1.46, Crp 5.68 3. C. diff, PCR, and toxin positive this admission 12-26-23; - Completed Vanco to QID for 10 days, needs to continue Vanco 125 mg twice daily for the remainder of Rocephin and 7 days after - This is her second recurrence of C. difficile, on her third reoccurrence she will qualify for FMT Rebyota Check labs today/picc line care in offiice continue vancomycin po for duration of Rocephin and 7 days after She will return next Saturday the to coordinate appointments with Dr. Lorenzo for her pulmonary nodule evaluation She will return again on January 23 to coordinate for her last dose of IV Rocephin, daughter is paying [id number] for the last 4 doses We will administer her last dose of Rocephin here in the office on January 23 and then DC PICC line 4. Severe abdominal yeast candidiasis Begin Fluconazole 100 mg 1 dose every 3 days for 3 doses Continue to wound care/Interdry Check urine studies today Follow-up in 1 week 01/24/2024 Former smoker (ICD-10 - Z87.891) 1. Recurrent, complicated UTI's/Pyelonep hritis - 12-25-23; UW 816, UC a very sensitive Proteus, 11-29-23 UC Proteus, and Ec both VS - She is asymptomatic today - has stents in place 2. Antibiotics day #28 s/p stent exchange: Rocephin, Changed to p.o. Augmentin (last 5 days)- duration of therapy 4 weeks EOT --24 01-14-24; W 12.6, Striper 1.46, Crp 5.68 01-24-24; W 7.7, Striper 1.48, Crp 3.13 3. C. diff, PCR, and toxin positive admission 12-26-23; - This is her second recurrence of C. difficile, on her third reoccurrence she will qualify for FMT Rebyota PICC line has been discontinued her last day of p.o. Augmentin is today Complete additional 7 days of vancomycin Will recheck surveillance urine studies next week she will need continued prophylaxis plan for Augmentin with vancomycin Will discuss with Dr. Monge 01/30/2024 Complicated UTI (urinary tract infection) (ICD-10 - N39.0) 1. Recurrent, complicated UTI's/Pyelonep hritis - 12-25-23; UW 816, UC a very sensitive Proteus, 11-29-23 UC Proteus, and Ec both VS - She is asymptomatic today - has stents in place 2. Antibiotics day #28 s/p stent exchange: Rocephin, Changed to p.o. Augmentin (last 5 days)- duration of therapy 4 weeks EOT --01-14-24; W 12.6, Striper 1.46, Crp 5.68 01-24-24; W 7.7, Striper 1.48, Crp 3.13 3. C. diff, PCR, and toxin positive admission 12-26-23; 01-30-24; Check surveillance urine studies and check stools for cdiff - This is her second recurrence of C. difficile, on her third reoccurrence she will qualify for FMT Rebyota Hold off on UTI prophylaxis Will recheck surveillance urine studies today,she will need continued prophylaxis plan for Augmentin with vancomycin Will discuss with Dr. Monge 01/30/2024 Clostridium difficile infection (ICD-10 - A49.8) Check stools for C. difficile, if studies are positive she will need treatment with vancomycin or Dificid preferred We will work on getting her approved for reevaluation if third reoccurrence 1. Recurrent, complicated UTI's/Pyelonep hritis - 12-25-23; UW 816, UC a very sensitive Proteus, 11-29-23 UC Proteus, and Ec both VS - She is asymptomatic today - has stents in place 2. Antibiotics day #28 s/p stent exchange: Rocephin, Changed to p.o. Augmentin (last 5 days)- duration of therapy 4 weeks EOT 01-14-24; W 12.6, Striper 1.46, Crp 5.68 01-24-24; W 7.7, Striper 1.48, Crp 3.13 3. C. diff, PCR, and toxin positive admission 12-26-23; 01-30-24; Check surveillance urine studies and check stools for cdiff - This is her second recurrence of C. difficile, on her third reoccurrence she will qualify for FMT Rebyota Hold off on UTI prophylaxis Will recheck surveillance urine studies today,she will need continued prophylaxis plan for Augmentin with vancomycin Will discuss with Dr. Monge 08/24/2024 Complicated UTI (urinary tract infection) (ICD-10 - N39.0) 1. 68 yo white female with a history of chronic kidney disease, hyperlipidemia , hypertension, hypothyroidism , microcytic anemia, morbid obesity, type 2 diabetes with vascular disease, endometrial cancer, lymphoma and sleep apnea. 2.Hx of stroke 05-11-24 and waiting to see a Neurologist. -Hospitalized in [place] 3. Recurrent complicated UTI's - stents in place 11-03-23 - new stents were placed 03-28-2024 4. UTI Prophylaxis; - 08-24-24 continue Cefdinir 1 pill Mon, Wed, Fri (start date 05-28-24) Labs 02-10-24 UM RBC U 6, WBC U 637, Fernanda 3+, Hyaline cast 4, SQ epi 6, UC >100,000 cfu/ml. Citrobacter farmeri 08-16-24 UC Neg, UM WBC U 351, Striper 1.79, Hgb 10.2, Ur Prot 72.10, Uric acid 8.0 [facility] Chronic kidney disease, stage 3b (ICD-10 - N18.32) 08/31/2024 Hyperkalemia (ICD-10 - E87.5) 08/24/2024 Clostridium difficile infection (ICD-10 - A49.8) 1. 68 yo white female with a history of chronic kidney disease, hyperlipidemia , hypertension, hypothyroidism , microcytic anemia, morbid obesity, type 2 diabetes with vascular disease, endometrial cancer, lymphoma and sleep apnea. 2.Hx of stroke 05-11-24 and waiting to see a Neurologist. -Hospitalized in [place] 3. Recurrent complicated UTI's - stents in place 11-03-23 - new stents were placed 03-28-2024 4. UTI Prophylaxis; - 08-24-24 continue Cefdinir 1 pill Mon, Wed, Sat (start date 05-28-24) Labs 02-10-24 UM RBC U 6, WBC U 637, Fernanda 3+, Hyaline cast 4, SQ epi 6, UC >100,000 cfu/ml. Citrobacter ana mariaeri 08-16-24 UC Neg, UM WBC U 351, Striper 1.79, Hgb 10.2, Ur Prot 72.10, Uric acid 8.0 [facility] Pyelonephritis (ICD-10 - N12) 1. Recurrent, complicated UTI's/Pyelonep hritis - 12-25-23; UW 816, UC a very sensitive Proteus, 11-29-23 UC Proteus, and Ec both VS - She is asymptomatic today - has stents in place 2. Antibiotics day #28 s/p stent exchange: Rocephin, Changed to p.o. Augmentin (last 5 days)- duration of therapy 4 weeks EOT 01-14-24; W 12.6, Striper 1.46, Crp 5.68 01-24-24; W 7.7, Striper 1.48, Crp 3.13 3. C. diff, PCR, and toxin positive admission 12-26-23; 01-30-24; Check surveillance urine studies and check stools for cdiff - This is her second recurrence of C. difficile, on her third reoccurrence she will qualify for FMT Rebyota Hold off on UTI prophylaxis Will recheck surveillance urine studies today,she will need continued prophylaxis plan for Augmentin with vancomycin Will discuss with Dr. Monge 01/24/2024 Multiple pulmonary nodules determined by computed tomography of lung (ICD-10 - R91.8) 1. Recurrent, complicated UTI's/Pyelonep hritis - 12-25-23; UW 816, UC a very sensitive Proteus, 11-29-23 UC Proteus, and Ec both VS - She is asymptomatic today - has stents in place 2. Antibiotics day #28 s/p stent exchange: Rocephin, Changed to p.o. Augmentin (last 5 days)- duration of therapy 4 weeks EOT --24 01-14-24; W 12.6, Striper 1.46, Crp 5.68 01-24-24; W 7.7, Striper 1.48, Crp 3.13 3. C. diff, PCR, and toxin positive admission 12-26-23; - This is her second recurrence of C. difficile, on her third reoccurrence she will qualify for FMT Rebyota PICC line has been discontinued her last day of p.o. Augmentin is today Complete additional 7 days of vancomycin Will recheck surveillance urine studies next week she will need continued prophylaxis plan for Augmentin with vancomycin Will discuss with Dr. Monge 01/09/2024 Pyelonephritis (ICD-10 - N12) 1. Recurrent, complicated UTI's/Pyelonep hritis - 12-25-23; UW 816, UC a very sensitive Proteus, 11-29-23 UC Proteus, and Ec both VS - She is asymptomatic today - has stents in place 2. Antibiotics day #13 s/p stent exchange: Rocephin- duration of therapy 4 weeks 3. C. diff, PCR, and toxin positive this admission 12-26-23; - Completed Vanco to QID for 10 days, needs to continue Vanco 125 mg twice daily for the remainder of Rocephin and 7 days after - This is her second recurrence of C. difficile, on her third reoccurrence she will qualify for FMT Rebyota Stools are returning to normal for her Check labs today in office, send orders to facility to continue vancomycin for duration of Rocephin and 7 days after She will return next Saturday to coordinate appointments with Dr. Sandra for her pulmonary nodule evaluation She will return again on January 23 to coordinate for her last dose of IV Rocephin, daughter is paying [id number] for the last 4 doses We will administer her last dose of Rocephin here in the office on January 23 and then DC PICC line Follow-up in 1 week 01/14/2024 Multiple pulmonary nodules determined by computed tomography of lung (ICD-10 - R91.8) 1. Recurrent, complicated UTI's/Pyelonep hritis - 12-25-23; UW 816, UC a very sensitive Proteus, 11-29-23 UC Proteus, and Ec both VS - She is asymptomatic today - has stents in place 2. Antibiotics day #18 s/p stent exchange: Rocephin- duration of therapy 4 weeks 01-14-24; W 12.6, Striper 1.46, Crp 5.68 3. C. diff, PCR, and toxin positive this admission 12-26-23; - Completed Vanco to QID for 10 days, needs to continue Vanco 125 mg twice daily for the remainder of Rocephin and 7 days after - This is her second recurrence of C. difficile, on her third reoccurrence she will qualify for FMT Rebyota Check labs today/picc line care in offiice continue vancomycin po for duration of Rocephin and 7 days after She will return next Saturday the to coordinate appointments with Dr. Lorenzo for her pulmonary nodule evaluation She will return again on January 23 to coordinate for her last dose of IV Rocephin, daughter is paying [id number] for the last 4 doses We will administer her last dose of Rocephin here in the office on January 23 and then DC PICC line 4. Severe abdominal yeast candidiasis Begin Fluconazole 100 mg 1 dose every 3 days for 3 doses Continue to wound care/Interdry Check urine studies today Follow-up in 1 week 01/14/2024 Multiple pulmonary nodules determined by computed tomography of lung (ICD-10 - R91.8) Resolved. No further workup needed. I suspect these may have represented septic emboli. She completed a course of antibiotics for pyelonephritis. 12/10/2023 Multiple pulmonary nodules determined by computed tomography of lung (ICD-10 - R91.8) Discussed treatment options with patient of needle biopsy vs robotic navigational bronchoscopy vs CT monitoring. -Patient has opted for CT monitoring. Obtain repeat CT in December 2023. 11/29/2023 Essential hypertension (ICD-10 - I10) Chronic kidney disease stage IIIb based on current labs available, CKD likely due to chronic obstruction, Hypertension, Diabetes and Age. Hypertension is controlled. Diabetes is controlled by report. Following with urology for ureteral stent exchanges and chronic UTI. Proteinuria is likely d/t UTI. 08/24/2024 Chronic kidney disease, stage 3b (ICD-10 - N18.32) CKD is stable but baseline is difficult to discern. Hypertension is controlled at home and in clinic. Hypokalemia has resolved now with hyperkalemia, likely exacerbated by acidosis, which is new onset. Anemia is improved and now at goal with normal iron studies. Proteinuria has improved and is now non-nephrotic. Hyperuricemia is currently asymptomatic 08/24/2024 Hypertensive chronic kidney disease with stage 1 through stage 4 chronic kidney disease, or unspecified chronic kidney disease (ICD-10 - I12.9) CKD is stable but baseline is difficult to discern. Hypertension is controlled at home and in clinic. Hypokalemia has resolved now with hyperkalemia, likely exacerbated by acidosis, which is new onset. Anemia is improved and now at goal with normal iron studies. Proteinuria has improved and is now non-nephrotic. Hyperuricemia is currently asymptomatic 07/22/2024 Personal history of other colon polyps (ICD-10 - Z86.0109) 05/26/2024 Clostridium difficile infection (ICD-10 - A49.8) 1. 68 yo white female with a history of chronic kidney disease, hyperlipidemia , hypertension, hypothyroidism , microcytic anemia, morbid obesity, type 2 diabetes with vascular disease, endometrial cancer, lymphoma and sleep apnea. 2.Hx of stroke 05-11-24 and waiting to see a Neurologist. -Hospitalized in [place] 3. Recurrent complicated UTI's - stents in place 11-03-23 - new stents were placed 03-28-2024 -Treated for UTI in 2024 while in hospital -05-28-24 asymptomatic today 4. UTI Prophylaxis; - Rx for Cefdinir called into pharmacy for UTI prophylaxis Sig; 1 pill Mon, Wed, Sat (start date 05-28-24) -pt is to call clinic if unable to afford this 5. C Difficile Prophylaxis; - 05-28-24 pt could not afford Vanco or Deficid so didnt take any. -05-28-24 still having intermitten diarrhea 6. Continued intermitten diarrhea, GI appt; scheduled in August 03, 2024 -consult to see Oncologist, [facility] 02-06-24 W 8.9, Striper 1.73, CRP 2.12 CDiff Negative for Clostridium difficile toxin A and/or B , CDiff /Epi NAP1-BI PRESUMPTIVE NEGATIVE , 02-10-24 UM RBC U 6, WBC U 637, Fernanda 3+, Hyaline cast 4, SQ epi 6, UC >100,000 cfu/ml. Citrobacter farmeri Follow up; 3 months [facility] 04/14/2024 Clostridium difficile infection (ICD-10 - A49.8) 1. 68 yo white female with a history of chronic kidney disease, hyperlipidemia , hypertension, hypothyroidism , microcytic anemia, morbid obesity, type 2 diabetes with vascular disease , endometrial cancer, lymphoma and sleep apnea. 2. Recurrent complicated UTI's - stents in place 11-03-23 - new stents were placed 03-28-2024 - Recurrent UTI 04-01-24 resolved s/p one week of Invanz - 04-14-24 Patient asymptomatic today 3. UTI Prophylaxis; - 04-14-24 Start Omnicef PO M,W,F for UTI prophylaxis 4. C Difficile Prophylaxis; - 04-14-24 Vancomycin PO BID for cdiff prophylaxis -04-14-24 Deficid PO BID (started 04-04-24) will be completed on 04-16-24 5. Continued diarrhea, consult to see GI for colonoscopy. Has appt scheduled in May 2024 -consult to see Oncologist, hx of mysentary lymphoma Labs 02-06-24 W 8.9, Striper 1.73, CRP 2.12 CDiff Negative for Clostridium difficile toxin A and/or B , CDiff /Epi NAP1-BI PRESUMPTIVE NEGATIVE , 02-10-24 UM RBC U 6, WBC U 637, Fernanda 3+, Hyaline cast 4, SQ epi 6, UC >100,000 cfu/ml. Citrobacter farmeri Follow up; 6 weeks [facility] 04/08/2024 Proteinuria, unspecified type (ICD-10 - R80.9) Chronic kidney disease stage IIIb at baseline. CKD likely due to chronic urinary obstruction, chronic UTIs, Hypertension, Diabetes and Age. Hypertension is controlled at home but uncontrolled in clinic. Diabetes is controlled. Following with urology for ureteral stent exchanges and chronic UTI. Proteinuria is likely d/t recurrent UTIs. Hypokalemia is mild. Hypocalcemia is mild. Anemia is below goal with unknown iron status. 02/13/2024 Clostridium difficile infection (ICD-10 - A49.8) 1. 68 yo white female with a history of chronic kidney disease, hyperlipidemia , hypertension, hypothyroidism , microcytic anemia, morbid obesity, type 2 diabetes with vascular disease , endometrial cancer, lymphoma and sleep apnea. 2. recurrent complicated UTI's- stents in place 11-03-23 3. Resolved, CDiff. continue with PO Vanco PRN for prophylaxis.-03-28-23 neg PCR, Neg toxin for CDiff 6. Continued diarrhea, consult to see GI for colonoscopy -consult to see Oncologist, hx of mysentary lymphoma Labs 02-06-24 W 8.9, Striper 1.73, CRP 2.12 CDiff Negative for Clostridium difficile toxin A and/or B , CDiff /Epi NAP1-BI PRESUMPTIVE NEGATIVE , 02-10-24 UM RBC U 6, WBC U 637, Fernanda 3+, Hyaline cast 4, SQ epi 6, UC >100,000 cfu/ml. Citrobacter farmeri FOLLOW UP:2 months [facility] Arnold[facility] 02/13/2024 Pyelonephritis (ICD-10 - N12) 1. 68 yo white female with a history of chronic kidney disease, hyperlipidemia , hypertension, hypothyroidism , microcytic anemia, morbid obesity, type 2 diabetes with vascular disease , endometrial cancer, lymphoma and sleep apnea. 2. recurrent complicated UTI's- stents in place 11-03-23 3. Resolved, CDiff. continue with PO Vanco PRN for prophylaxis.-1 03-28-23 neg PCR, Neg toxin for CDiff 6. Continued diarrhea, consult to see GI for colonoscopy -consult to see Oncologist, hx of mysentary lymphoma Labs 02-06-24 W 8.9, Striper 1.73, CRP 2.12 CDiff Negative for Clostridium difficile toxin A and/or B , CDiff /Epi NAP1-BI PRESUMPTIVE NEGATIVE , 02-10-24 UM RBC U 6, WBC U 637, Fernanda 3+, Hyaline cast 4, SQ epi 6, UC >100,000 cfu/ml. Citrobacter farmeri FOLLOW UP:2 months Ilian[facility]bin Castro Nancy 02/06/2024 Clostridium difficile infection (ICD-10 - A49.8) Check stools for C. difficile, if studies are positive she will need treatment with vancomycin or Dificid preferred We will work on getting her approved for reevaluation if third reoccurrence 1. Recurrent, complicated UTI's/Pyelonep hritis - 12-25-23; UW 816, UC a very sensitive Proteus, 11-29-23 UC Proteus, and Ec both VS - She is asymptomatic today - has stents in place 2. Antibiotics day #28 s/p stent exchange: Rocephin, Changed to p.o. Augmentin (last 5 days)- duration of therapy 4 weeks EOT 01-14-24; W 12.6, Striper 1.46, Crp 5.68 01-24-24; W 7.7, Striper 1.48, Crp 3.13 3. C. diff, PCR, and toxin positive admission 12-26-23; 02-06-24; Surveillance urine studies negative She was unable to leave stool sample for cdiff last week, stool was sent to the lab today (results pending 02-06-24) - This is her second recurrence of C. difficile, on her third reoccurrence she will qualify for FMT Rebyota Hold off on UTI prophylaxis until stool studies resulted Will recheck surveillance urine studies today,she will need continued prophylaxis plan for Augmentin with vancomycin She continues to have increased loose stools, begin Dificid, will await pending cultures Check labs today and follow-up on Saturday02/10/2024 Clostridium difficile infection (ICD-10 - A49.8) Stools for C. difficile were negative, check again today, begin Dificid We will work on getting her approved for reevaluation third reoccurrence 1. Recurrent, complicated UTI's/Pyelonep hritis - 24; UW 816, UC a very sensitive Proteus, 11-29-23 UC Proteus, and Ec both VS - She is asymptomatic today - has stents in place 2. Antibiotics day #28 s/p stent exchange: Rocephin, Changed to p.o. Augmentin (last 5 days)- duration of therapy 4 weeks Completed treatment 01-14-24; W 12.6, Striper 1.46, Crp 5.68 01-24-24; W 7.7, Striper 1.48, Crp 3.13 3. C. diff, PCR, and toxin positive admission 12-26-23; - This is her second recurrence of C. difficile 4. Continued loose stools 02-10-24; W 8.9, Striper 1.73, Crp 2.12 Working on approval for FMT Sada She continues to have increased loose stools, begin Dificid, will await pending cultures DC Imodium 5. Dysuria - Give Invanz 1 gm IM today Will recheck urine studies and labs today, order CT scan abd/pelvis She will need continued UTI prophylaxis plan for Augmentin with vancomycin 02/10/2024 Clostridium difficile infection (ICD-10 - A49.8) 02/13/2024 Lymphoma, non-Hodgkin's (ICD-10 - C85.90) 1. 68 yo white female with a history of chronic kidney disease, hyperlipidemia , hypertension, hypothyroidism , microcytic anemia, morbid obesity, type 2 diabetes with vascular disease , endometrial cancer, lymphoma and sleep apnea. 2. recurrent complicated UTI's- stents in place 11-03-23 3. Resolved, CDiff. continue with PO Vanco PRN for prophylaxis.-1 03-28-23 neg PCR, Neg toxin for CDiff 6. Continued diarrhea, consult to see GI for colonoscopy -consult to see Oncologist, hx of mysentary lymphoma Labs 02-06-24 W 8.9, Striper 1.73, CRP 2.12 CDiff Negative for Clostridium difficile toxin A and/or B , CDiff /Epi NAP1-BI PRESUMPTIVE NEGATIVE , 02-10-24 UM RBC U 6, WBC U 637, Fernanda 3+, Hyaline cast 4, SQ epi 6, UC >100,000 cfu/ml. Citrobacter farmeri FOLLOW UP:2 months Hazel Cruz 02/10/2024 Pyelonephritis (ICD-10 - N12) 1. Recurrent, complicated UTI's/Pyelonep hritis - 24; UW 816, UC a very sensitive Proteus, 11-29-23 UC Proteus, and Ec both VS - She is asymptomatic today - has stents in place 2. Antibiotics day #28 s/p stent exchange: Rocephin, Changed to p.o. Augmentin (last 5 days)- duration of therapy 4 weeks Completed treatment 01-14-24; W 12.6, Striper 1.46, Crp 5.68 01-24-24; W 7.7, Striper 1.48, Crp 3.13 3. C. diff, PCR, and toxin positive admission 12-26-23; - This is her second recurrence of C. difficile 4. Continued loose stools 02-10-24; W 8.9, Striper 1.73, Crp 2.12 Working on approval for FMT Rebyota She continues to have increased loose stools, begin Dificid, will await pending cultures DC Imodium 5. Dysuria - Give Invanz 1 gm IM today Will recheck urine studies and labs today, order CT scan abd/pelvis She will need continued UTI prophylaxis plan for Augmentin with vancomycin 02/06/2024 Pyelonephritis (ICD-10 - N12) 1. Recurrent, complicated UTI's/Pyelonep hritis - 24; UW 816, UC a very sensitive Proteus, 11-29-23 UC Proteus, and Ec both VS - She is asymptomatic today - has stents in place 2. Antibiotics day #28 s/p stent exchange: Rocephin, Changed to p.o. Augmentin (last 5 days)- duration of therapy 4 weeks EOT -01-14-24; W 12.6, Striper 1.46, Crp 5.68 01-24-24; W 7.7, Striper 1.48, Crp 3.13 3. C. diff, PCR, and toxin positive admission 12-26-23; 02-06-24; Surveillance urine studies negative She was unable to leave stool sample for cdiff last week, stool was sent to the lab today (results pending 02-06-24) - This is her second recurrence of C. difficile, on her third reoccurrence she will qualify for FMT Rebyota Hold off on UTI prophylaxis until stool studies resulted Will recheck surveillance urine studies today,she will need continued prophylaxis plan for Augmentin with vancomycin She continues to have increased loose stools, begin Dificid, will await pending cultures Check labs today and follow-up on Saturday04/08/2024 Essential hypertension (ICD-10 - I10) Chronic kidney disease stage IIIb at baseline. CKD likely due to chronic urinary obstruction, chronic UTIs, Hypertension, Diabetes and Age. Hypertension is controlled at home but uncontrolled in clinic. Diabetes is controlled. Following with urology for ureteral stent exchanges and chronic UTI. Proteinuria is likely d/t recurrent UTIs. Hypokalemia is mild. Hypocalcemia is mild. Anemia is below goal with unknown iron status. 04/14/2024 Pyelonephritis (ICD-10 - N12) 1. 68 yo white female with a history of chronic kidney disease, hyperlipidemia , hypertension, hypothyroidism , microcytic anemia, morbid obesity, type 2 diabetes with vascular disease , endometrial cancer, lymphoma and sleep apnea. 2. Recurrent complicated UTI's - stents in place 11-03-23 - new stents were placed 03-28-2024 - Recurrent UTI 04-01-24 resolved s/p one week of Invanz - 04-14-24 Patient asymptomatic today 3. UTI Prophylaxis; - 04-14-24 Start Omnicef PO M,W,F for UTI prophylaxis 4. C Difficile Prophylaxis; - 04-14-24 Vancomycin PO BID for cdiff prophylaxis -04-14-24 Deficid PO BID (started 04-04-24) will be completed on 04-16-24 5. Continued diarrhea, consult to see GI for colonoscopy. Has appt scheduled in May 2024 -consult to see Oncologist, hx of mysentary lymphoma Labs 02-06-24 W 8.9, Striper 1.73, CRP 2.12 CDiff Negative for Clostridium difficile toxin A and/or B , CDiff /Epi NAP1-BI PRESUMPTIVE NEGATIVE , 02-10-24 UM RBC U 6, WBC U 637, Fernanda 3+, Hyaline cast 4, SQ epi 6, UC >100,000 cfu/ml. Citrobacter farmeri Follow up; 6 weeks Hazel Cruz 05/26/2024 Pyelonephritis (ICD-10 - N12) 1. 68 yo white female with a history of chronic kidney disease, hyperlipidemia , hypertension, hypothyroidism , microcytic anemia, morbid obesity, type 2 diabetes with vascular disease, endometrial cancer, lymphoma and sleep apnea. 2.Hx of stroke 05-11-24 and waiting to see a Neurologist. -Hospitalized in [place] 3. Recurrent complicated UTI's - stents in place 11-03-23 - new stents were placed 03-28-2024 -Treated for UTI in 2024 while in hospital -05-28-24 asymptomatic today 4. UTI Prophylaxis; - Rx for Cefdinir called into pharmacy for UTI prophylaxis Sig; 1 pill Mon, Wed, Fri (start date 05-28-24) -pt is to call clinic if unable to afford this 5. C Difficile Prophylaxis; - 05-28-24 pt could not afford Vanco or Deficid so didnt take any. -05-28-24 still having intermitten diarrhea 6. Continued intermitten diarrhea, GI appt; scheduled in August 03, 2024 -consult to see Oncologist, hx of mysentary lymphoma Labs 02-06-24 W 8.9, Striper 1.73, CRP 2.12 CDiff Negative for Clostridium difficile toxin A and/or B , CDiff /Epi NAP1-BI PRESUMPTIVE NEGATIVE , 02-10-24 UM RBC U 6, WBC U 637, Fernanda 3+, Hyaline cast 4, SQ epi 6, UC >100,000 cfu/ml. Citrobacter farmeri Follow up; 3 months Hazel Cruz 07/22/2024 Essential hypertension (ICD-10 - I10) 08/24/2024 Essential hypertension (ICD-10 - I10) CKD is stable but baseline is difficult to discern. Hypertension is controlled at home and in clinic. Hypokalemia has resolved now with hyperkalemia, likely exacerbated by acidosis, which is new onset. Anemia is improved and now at goal with normal iron studies. Proteinuria has improved and is now non-nephrotic. Hyperuricemia is currently asymptomatic 01/09/2024 Lymphoma, non-Hodgkin's (ICD-10 - C85.90) 1. Recurrent, complicated UTI's/Pyelonep hritis - 12-25-23; UW 816, UC a very sensitive Proteus, 11-29-23 UC Proteus, and Ec both VS - She is asymptomatic today - has stents in place 2. Antibiotics day #13 s/p stent exchange: Rocephin- duration of therapy 4 weeks 3. C. diff, PCR, and toxin positive this admission 12-26-23; - Completed Vanco to QID for 10 days, needs to continue Vanco 125 mg twice daily for the remainder of Rocephin and 7 days after - This is her second recurrence of C. difficile, on her third reoccurrence she will qualify for FMT Rebyota Stools are returning to normal for her Check labs today in office, send orders to facility to continue vancomycin for duration of Rocephin and 7 days after She will return next Saturday the to coordinate appointments with Dr. Sandra for her pulmonary nodule evaluation She will return again on January 23 to coordinate for her last dose of IV Rocephin, daughter is paying [id number] for the last 4 doses We will administer her last dose of Rocephin here in the office on January 23 and then DC PICC line Follow-up in 1 week 11/29/2023 Type 2 diabetes with nephropathy (ICD-10 - E11.21) Chronic kidney disease stage IIIb based on current labs available, CKD likely due to chronic obstruction, Hypertension, Diabetes and Age. Hypertension is controlled. Diabetes is controlled by report. Following with urology for ureteral stent exchanges and chronic UTI. Proteinuria is likely d/t UTI. 01/14/2024 Complicated UTI (urinary tract infection) (ICD-10 - N39.0) 1. Recurrent, complicated UTI's/Pyelonep hritis - 12-25-23; UW 816, UC a very sensitive Proteus, 11-29-23 UC Proteus, and Ec both VS - She is asymptomatic today - has stents in place 2. Antibiotics day #18 s/p stent exchange: Rocephin- duration of therapy 4 weeks 01-14-24; W 12.6, Striper 1.46, Crp 5.68 3. C. diff, PCR, and toxin positive this admission 12-26-23; - Completed Vanco to QID for 10 days, needs to continue Vanco 125 mg twice daily for the remainder of Rocephin and 7 days after - This is her second recurrence of C. difficile, on her third reoccurrence she will qualify for FMT Rebyota Check labs today/picc line care in offiice continue vancomycin po for duration of Rocephin and 7 days after She will return next Saturday the to coordinate appointments with Dr. Lorenzo for her pulmonary nodule evaluation She will return again on January 23 to coordinate for her last dose of IV Rocephin, daughter is paying [id number] for the last 4 doses We will administer her last dose of Rocephin here in the office on January 23 and then DC PICC line 4. Severe abdominal yeast candidiasis Begin Fluconazole 100 mg 1 dose every 3 days for 3 doses Continue to wound care/Interdry Check urine studies today Follow-up in 1 week 01/24/2024 Complicated UTI (urinary tract infection) (ICD-10 - N39.0) 1. Recurrent, complicated UTI's/Pyelonep hritis - 12-25-23; UW 816, UC a very sensitive Proteus, 11-29-23 UC Proteus, and Ec both VS - She is asymptomatic today - has stents in place 2. Antibiotics day #28 s/p stent exchange: Rocephin, Changed to p.o. Augmentin (last 5 days)- duration of therapy 4 weeks EOT --01-14-24; W 12.6, Striper 1.46, Crp 5.68 01-24-24; W 7.7, Striper 1.48, Crp 3.13 3. C. diff, PCR, and toxin positive admission 12-26-23; - This is her second recurrence of C. difficile, on her third reoccurrence she will qualify for FMT Rebyota PICC line has been discontinued her last day of p.o. Augmentin is today Complete additional 7 days of vancomycin Will recheck surveillance urine studies next week she will need continued prophylaxis plan for Augmentin with vancomycin Will discuss with Dr. Monge 01/30/2024 Lymphoma, non-Hodgkin's (ICD-10 - C85.90) 1. Recurrent, complicated UTI's/Pyelonep hritis - 12-25-23; UW 816, UC a very sensitive Proteus, 11-29-23 UC Proteus, and Ec both VS - She is asymptomatic today - has stents in place 2. Antibiotics day #28 s/p stent exchange: Rocephin, Changed to p.o. Augmentin (last 5 days)- duration of therapy 4 weeks EOT --01-14-24; W 12.6, Striper 1.46, Crp 5.68 01-24-24; W 7.7, Striper 1.48, Crp 3.13 3. C. diff, PCR, and toxin positive admission 12-26-23; 01-30-24; Check surveillance urine studies and check stools for cdiff - This is her second recurrence of C. difficile, on her third reoccurrence she will qualify for FMT Rebyota Hold off on UTI prophylaxis Will recheck surveillance urine studies today,she will need continued prophylaxis plan for Augmentin with vancomycin Will discuss with Dr. Monge 08/24/2024 Pyelonephritis (ICD-10 - N12) 1. 68 yo white female with a history of chronic kidney disease, hyperlipidemia , hypertension, hypothyroidism , microcytic anemia, morbid obesity, type 2 diabetes with vascular disease, endometrial cancer, lymphoma and sleep apnea. 2.Hx of stroke 05-11-24 and waiting to see a Neurologist. -Hospitalized in [place] 3. Recurrent complicated UTI's - stents in place 11-03-23 - new stents were placed 03-28-2024 4. UTI Prophylaxis; - 08-24-24 continue Cefdinir 1 pill Mon, Wed, Fri (start date 05-28-24) Labs 02-10-24 UM RBC U 6, WBC U 637, Fernanda 3+, Hyaline cast 4, SQ epi 6, UC >100,000 cfu/ml. Citrobacter farmeri 08-16-24 UC Neg, UM WBC U 351, Striper 1.79, Hgb 10.2, Ur Prot 72.10, Uric acid 8.0 Follow up; 3 months Hazel Cruz 01/30/2024 Chronic kidney failure (ICD-10 - N18.9) 1. Recurrent, complicated UTI's/Pyelonep hritis - 12-25-23; UW 816, UC a very sensitive Proteus, 11-29-23 UC Proteus, and Ec both VS - She is asymptomatic today - has stents in place 2. Antibiotics day #28 s/p stent exchange: Rocephin, Changed to p.o. Augmentin (last 5 days)- duration of therapy 4 weeks EOT -01-14-24; W 12.6, Striper 1.46, Crp 5.68 01-24-24; W 7.7, Striper 1.48, Crp 3.13 3. C. diff, PCR, and toxin positive admission 12-26-23; 01-30-24; Check surveillance urine studies and check stools for cdiff - This is her second recurrence of C. difficile, on her third reoccurrence she will qualify for FMT Rebyota Hold off on UTI prophylaxis Will recheck surveillance urine studies today,she will need continued prophylaxis plan for Augmentin with vancomycin Will discuss with Dr. Monge 02/06/2024 Lymphoma, non-Hodgkin's (ICD-10 - C85.90) 1. Recurrent, complicated UTI's/Pyelonep hritis - 12-25-23; UW 816, UC a very sensitive Proteus, 11-29-23 UC Proteus, and Ec both VS - She is asymptomatic today - has stents in place 2. Antibiotics day #28 s/p stent exchange: Rocephin, Changed to p.o. Augmentin (last 5 days)- duration of therapy 4 weeks EOT 01-14-24; W 12.6, Striper 1.46, Crp 5.68 01-24-24; W 7.7, Striper 1.48, Crp 3.13 3. C. diff, PCR, and toxin positive admission 12-26-23; 02-06-24; Surveillance urine studies negative She was unable to leave stool sample for cdiff last week, stool was sent to the lab today (results pending 02-06-24) - This is her second recurrence of C. difficile, on her third reoccurrence she will qualify for FMT Rebyota Hold off on UTI prophylaxis until stool studies resulted Will recheck surveillance urine studies today,she will need continued prophylaxis plan for Augmentin with vancomycin She continues to have increased loose stools, begin Dificid, will await pending cultures Check labs today and follow-up on Saturday01/24/2024 Clostridium difficile infection (ICD-10 - A49.8) 1. Recurrent, complicated UTI's/Pyelonep hritis - 24; UW 816, UC a very sensitive Proteus, 24 UC Proteus, and Ec both VS - She is asymptomatic today - has stents in place 2. Antibiotics day #28 s/p stent exchange: Rocephin, Changed to p.o. Augmentin (last 5 days)- duration of therapy 4 weeks EOT -01-14-24; W 12.6, Striper 1.46, Crp 5.68 01-24-24; W 7.7, Striper 1.48, Crp 3.13 3. C. diff, PCR, and toxin positive admission 12-26-23; - This is her second recurrence of C. difficile, on her third reoccurrence she will qualify for FMT Rebyota PICC line has been discontinued her last day of p.o. Augmentin is today Complete additional 7 days of vancomycin Will recheck surveillance urine studies next week she will need continued prophylaxis plan for Augmentin with vancomycin Will discuss with Dr. Monge 01/09/2024 Chronic kidney failure (ICD-10 - N18.9) 1. Recurrent, complicated UTI's/Pyelonep hritis - 12-25-23; UW 816, UC a very sensitive Proteus, 11-29-23 UC Proteus, and Ec both VS - She is asymptomatic today - has stents in place 2. Antibiotics day #13 s/p stent exchange: Rocephin- duration of therapy 4 weeks 3. C. diff, PCR, and toxin positive this admission 12-26-23; - Completed Vanco to QID for 10 days, needs to continue Vanco 125 mg twice daily for the remainder of Rocephin and 7 days after - This is her second recurrence of C. difficile, on her third reoccurrence she will qualify for FMT Rebyota Stools are returning to normal for her Check labs today in office, send orders to facility to continue vancomycin for duration of Rocephin and 7 days after She will return next Saturday the to coordinate appointments with Dr. Sandra for her pulmonary nodule evaluation She will return again on January 23 to coordinate for her last dose of IV Rocephin, daughter is paying [id number] for the last 4 doses We will administer her last dose of Rocephin here in the office on January 23 and then DC PICC line Follow-up in 1 week 01/14/2024 Clostridium difficile infection (ICD-10 - A49.8) 1. Recurrent, complicated UTI's/Pyelonep hritis - 12-25-23; UW 816, UC a very sensitive Proteus, 11-29-23 UC Proteus, and Ec both VS - She is asymptomatic today - has stents in place 2. Antibiotics day #18 s/p stent exchange: Rocephin- duration of therapy 4 weeks 01-14-24; W 12.6, Striper 1.46, Crp 5.68 3. C. diff, PCR, and toxin positive this admission 12-26-23; - Completed Vanco to QID for 10 days, needs to continue Vanco 125 mg twice daily for the remainder of Rocephin and 7 days after - This is her second recurrence of C. difficile, on her third reoccurrence she will qualify for FMT Rebyota Check labs today/picc line care in offiice continue vancomycin po for duration of Rocephin and 7 days after She will return next Saturday the to coordinate appointments with Dr. Lorenzo for her pulmonary nodule evaluation She will return again on January 23 to coordinate for her last dose of IV Rocephin, daughter is paying [id number] for the last 4 doses We will administer her last dose of Rocephin here in the office on January 23 and then DC PICC line 4. Severe abdominal yeast candidiasis Begin Fluconazole 100 mg 1 dose every 3 days for 3 doses Continue to wound care/Interdry Check urine studies today Follow-up in 1 week 08/24/2024 Hypokalemia (ICD-10 - E87.6) CKD is stable but baseline is difficult to discern. Hypertension is controlled at home and in clinic. Hypokalemia has resolved now with hyperkalemia, likely exacerbated by acidosis, which is new onset. Anemia is improved and now at goal with normal iron studies. Proteinuria has improved and is now non-nephrotic. Hyperuricemia is currently asymptomatic 08/24/2024 Lymphoma, non-Hodgkin's (ICD-10 - C85.90) 1. 68 yo white female with a history of chronic kidney disease, hyperlipidemia , hypertension, hypothyroidism , microcytic anemia, morbid obesity, type 2 diabetes with vascular disease, endometrial cancer, lymphoma and sleep apnea. 2.Hx of stroke 05-11-24 and waiting to see a Neurologist. -Hospitalized in [place] 3. Recurrent complicated UTI's - stents in place 11-03-23 - new stents were placed 03-28-2024 4. UTI Prophylaxis; - 08-24-24 continue Cefdinir 1 pill Mon, Wed, Fri (start date 05-28-24) Labs 02-10-24 UM RBC U 6, WBC U 637, Fernanda 3+, Hyaline cast 4, SQ epi 6, UC >100,000 cfu/ml. Citrobacter farmeri 08-16-24 UC Neg, UM WBC U 351, Striper 1.79, Hgb 10.2, Ur Prot 72.10, Uric acid 8.0 Follow up; 3 months Scribe Gloria Cruz 07/22/2024 Type 2 diabetes mellitus without complication, without long-term current use of insulin (ICD-10 - E11.9) 05/26/2024 Lymphoma, non-Hodgkin's (ICD-10 - C85.90) 1. 68 yo white female with a history of chronic kidney disease, hyperlipidemia , hypertension, hypothyroidism , microcytic anemia, morbid obesity, type 2 diabetes with vascular disease, endometrial cancer, lymphoma and sleep apnea. 2.Hx of stroke 05-11-24 and waiting to see a Neurologist. -Hospitalized in [place] 3. Recurrent complicated UTI's - stents in place 11-03-23 - new stents were placed 03-28-2024 -Treated for UTI in 2024 while in hospital -05-28-24 asymptomatic today 4. UTI Prophylaxis; - Rx for Cefdinir called into pharmacy for UTI prophylaxis Sig; 1 pill Mon, Wed, Fri (start date 05-28-24) -pt is to call clinic if unable to afford this 5. C Difficile Prophylaxis; - 05-28-24 pt could not afford Vanco or Deficid so didnt take any. -05-28-24 still having intermitten diarrhea 6. Continued intermitten diarrhea, GI appt; scheduled in August 03, 2024 -consult to see Oncologist, hx of mysentary lymphoma Labs 02-06-24 W 8.9, Striper 1.73, CRP 2.12 CDiff Negative for Clostridium difficile toxin A and/or B , CDiff /Epi NAP1-BI PRESUMPTIVE NEGATIVE , 02-10-24 UM RBC U 6, WBC U 637, Fernanda 3+, Hyaline cast 4, SQ epi 6, UC >100,000 cfu/ml. Citrobacter farmeri Follow up; 3 months Scrtorito Cruz 04/08/2024 Type 2 diabetes with nephropathy (ICD-10 - E11.21) Chronic kidney disease stage IIIb at baseline. CKD likely due to chronic urinary obstruction, chronic UTIs, Hypertension, Diabetes and Age. Hypertension is controlled at home but uncontrolled in clinic. Diabetes is controlled. Following with urology for ureteral stent exchanges and chronic UTI. Proteinuria is likely d/t recurrent UTIs. Hypokalemia is mild. Hypocalcemia is mild. Anemia is below goal with unknown iron status. 04/14/2024 Lymphoma, non-Hodgkin's (ICD-10 - C85.90) 1. 68 yo white female with a history of chronic kidney disease, hyperlipidemia , hypertension, hypothyroidism , microcytic anemia, morbid obesity, type 2 diabetes with vascular disease , endometrial cancer, lymphoma and sleep apnea. 2. Recurrent complicated UTI's - stents in place 11-03-23 - new stents were placed 03-28-2024 - Recurrent UTI 04-01-24 resolved s/p one week of Invanz - 04-14-24 Patient asymptomatic today 3. UTI Prophylaxis; - 04-14-24 Start Omnicef PO M,W,F for UTI prophylaxis 4. C Difficile Prophylaxis; - 04-14-24 Vancomycin PO BID for cdiff prophylaxis -04-14-24 Deficid PO BID (started 04-04-24) will be completed on 04-16-24 5. Continued diarrhea, consult to see GI for colonoscopy. Has appt scheduled in May 2024 -consult to see [facility]cologist[facility] Labs 02-06-24 W 8.9, Striper 1.73, CRP 2.12 CDiff Negative for Clostridium difficile toxin A and/or B , CDiff /Epi NAP1-BI PRESUMPTIVE NEGATIVE , 02-10-24 UM RBC U 6, WBC U 637, Fernanda 3+, Hyaline cast 4, SQ epi 6, UC >100,000 cfu/ml. Citrobacter farmeri Follow up; 6 weeks Hazel Cruz 02/10/2024 Lymphoma, non-Hodgkin's (ICD-10 - C85.90) 1. Recurrent, complicated UTI's/Pyelonep hritis - 12-25-23; UW 816, UC a very sensitive Proteus, 11-29-23 UC Proteus, and Ec both VS - She is asymptomatic today - has stents in place 2. Antibiotics day #28 s/p stent exchange: Rocephin, Changed to p.o. Augmentin (last 5 days)- duration of therapy 4 weeks Completed treatment 01-14-24; W 12.6, Striper 1.46, Crp 5.68 01-24-24; W 7.7, Striper 1.48, Crp 3.13 3. C. diff, PCR, and toxin positive admission 12-26-23; - This is her second recurrence of C. difficile 4. Continued loose stools 02-10-24; W 8.9, Striper 1.73, Crp 2.12 Working on approval for FMT Sada She continues to have increased loose stools, begin Dificid, will await pending cultures DC Imodium 5. Dysuria - Give Invanz 1 gm IM today Will recheck urine studies and labs today, order CT scan abd/pelvis She will need continued UTI prophylaxis plan for Augmentin with vancomycin 02/13/2024 Chronic kidney failure (ICD-10 - N18.9) 1. 68 yo white female with a history of chronic kidney disease, hyperlipidemia , hypertension, hypothyroidism , microcytic anemia, morbid obesity, type 2 diabetes with vascular disease , endometrial cancer, lymphoma and sleep apnea. 2. recurrent complicated UTI's- stents in place 11-03-23 3. Resolved, CDiff. continue with PO Vanco PRN for prophylaxis.-1 03-28-23 neg PCR, Neg toxin for CDiff 6. Continued diarrhea, consult to see GI for colonoscopy -consult to see Oncologist, hx of mysentary lymphoma Labs 02-06-24 W 8.9, Striper 1.73, CRP 2.12 CDiff Negative for Clostridium difficile toxin A and/or B , CDiff /Epi NAP1-BI PRESUMPTIVE NEGATIVE , 02-10-24 UM RBC U 6, WBC U 637, Fernanda 3+, Hyaline cast 4, SQ epi 6, UC >100,000 cfu/ml. Citrobacter farmeri FOLLOW UP:2 months Hazel Cruz 02/10/2024 Chronic kidney failure (ICD-10 - N18.9) 1. Recurrent, complicated UTI's/Pyelonep hritis - 12-25-23; UW 816, UC a very sensitive Proteus, 11-29-23 UC Proteus, and Ec both VS - She is asymptomatic today - has stents in place 2. Antibiotics day #28 s/p stent exchange: Rocephin, Changed to p.o. Augmentin (last 5 days)- duration of therapy 4 weeks Completed treatment 01-14-24; W 12.6, Striper 1.46, Crp 5.68 01-24-24; W 7.7, Striper 1.48, Crp 3.13 3. C. diff, PCR, and toxin positive admission 12-26-23; - This is her second recurrence of C. difficile 4. Continued loose stools 02-10-24; W 8.9, Striper 1.73, Crp 2.12 Working on approval for FMT Rebyota She continues to have increased loose stools, begin Dificid, will await pending cultures DC Imodium 5. Dysuria - Give Invanz 1 gm IM today Will recheck urine studies and labs today, order CT scan abd/pelvis She will need continued UTI prophylaxis plan for Augmentin with vancomycin 02/06/2024 Chronic kidney failure (ICD-10 - N18.9) 1. Recurrent, complicated UTI's/Pyelonep hritis - 12-25-23; UW 816, UC a very sensitive Proteus, 11-29-23 UC Proteus, and Ec both VS - She is asymptomatic today - has stents in place 2. Antibiotics day #28 s/p stent exchange: Rocephin, Changed to p.o. Augmentin (last 5 days)- duration of therapy 4 weeks EOT 01-14-24; W 12.6, Striper 1.46, Crp 5.68 01-24-24; W 7.7, Striper 1.48, Crp 3.13 3. C. diff, PCR, and toxin positive admission 12-26-23; 02-06-24; Surveillance urine studies negative She was unable to leave stool sample for cdiff last week, stool was sent to the lab today (results pending 02-06-24) - This is her second recurrence of C. difficile, on her third reoccurrence she will qualify for FMT Rebyota Hold off on UTI prophylaxis until stool studies resulted Will recheck surveillance urine studies today,she will need continued prophylaxis plan for Augmentin with vancomycin She continues to have increased loose stools, begin Dificid, will await pending cultures Check labs today and follow-up on Saturday02/13/2024 Chronic kidney disease, stage 3b (ICD-10 - N18.32) 1. 68 yo white female with a history of chronic kidney disease, hyperlipidemia , hypertension, hypothyroidism , microcytic anemia, morbid obesity, type 2 diabetes with vascular disease , endometrial cancer, lymphoma and sleep apnea. 2. recurrent complicated UTI's- stents in place 11-03-23 3. Resolved, CDiff. continue with PO Vanco PRN for prophylaxis.-1 03-28-23 neg PCR, Neg toxin for CDiff 6. Continued diarrhea, consult to see GI for colonoscopy -consult to see Oncologist, hx of mysentary lymphoma Labs 02-06-24 W 8.9, Striper 1.73, CRP 2.12 CDiff Negative for Clostridium difficile toxin A and/or B , CDiff /Epi NAP1-BI PRESUMPTIVE NEGATIVE , 02-10-24 UM RBC U 6, WBC U 637, Fernanda 3+, Hyaline cast 4, SQ epi 6, UC >100,000 cfu/ml. Citrobacter farmeri FOLLOW UP:2 months Hazel Cruz 04/08/2024 Hypokalemia (ICD-10 - E87.6) Chronic kidney disease stage IIIb at baseline. CKD likely due to chronic urinary obstruction, chronic UTIs, Hypertension, Diabetes and Age. Hypertension is controlled at home but uncontrolled in clinic. Diabetes is controlled. Following with urology for ureteral stent exchanges and chronic UTI. Proteinuria is likely d/t recurrent UTIs. Hypokalemia is mild. Hypocalcemia is mild. Anemia is below goal with unknown iron status. 04/14/2024 Chronic kidney failure (ICD-10 - N18.9) 1. 68 yo white female with a history of chronic kidney disease, hyperlipidemia , hypertension, hypothyroidism , microcytic anemia, morbid obesity, type 2 diabetes with vascular disease , endometrial cancer, lymphoma and sleep apnea. 2. Recurrent complicated UTI's - stents in place 11-03-23 - new stents were placed 03-28-2024 - Recurrent UTI 04-01-24 resolved s/p one week of Invanz - 04-14-24 Patient asymptomatic today 3. UTI Prophylaxis; - 04-14-24 Start Omnicef PO M,W,F for UTI prophylaxis 4. C Difficile Prophylaxis; - 04-14-24 Vancomycin PO BID for cdiff prophylaxis -04-14-24 Deficid PO BID (started 04-04-24) will be completed on 04-16-24 5. Continued diarrhea, consult to see GI for colonoscopy. Has appt scheduled in May 2024 -consult to see Oncologist, hx of mysentary lymphoma Labs 02-06-24 W 8.9, Striper 1.73, CRP 2.12 CDiff Negative for Clostridium difficile toxin A and/or B , CDiff /Epi NAP1-BI PRESUMPTIVE NEGATIVE , 02-10-24 UM RBC U 6, WBC U 637, Fernanda 3+, Hyaline cast 4, SQ epi 6, UC >100,000 cfu/ml. Citrobacter farmeri Follow up; 6 weeks Hazel Cruz 05/26/2024 Chronic kidney failure (ICD-10 - N18.9) 1. 68 yo white female with a history of chronic kidney disease, hyperlipidemia , hypertension, hypothyroidism , microcytic anemia, morbid obesity, type 2 diabetes with vascular disease, endometrial cancer, lymphoma and sleep apnea. 2.Hx of stroke 05-11-24 and waiting to see a Neurologist. -Hospitalized in [place] 3. Recurrent complicated UTI's - stents in place 11-03-23 - new stents were placed 03-28-2024 -Treated for UTI in 2024 while in hospital -05-28-24 asymptomatic today 4. UTI Prophylaxis; - Rx for Cefdinir called into pharmacy for UTI prophylaxis Sig; 1 pill Mon, Wed, Fri (start date 05-28-24) -pt is to call clinic if unable to afford this 5. C Difficile Prophylaxis; - 05-28-24 pt could not afford Vanco or Deficid so didnt take any. -05-28-24 still having intermitten diarrhea 6. Continued intermitten diarrhea, GI appt; scheduled in August 03, 2024 -consult to see Oncologist, hx of mysentary lymphoma Labs 02-06-24 W 8.9, Striper 1.73, CRP 2.12 CDiff Negative for Clostridium difficile toxin A and/or B , CDiff /Epi NAP1-BI PRESUMPTIVE NEGATIVE , 02-10-24 UM RBC U 6, WBC U 637, Fernanda 3+, Hyaline cast 4, SQ epi 6, UC >100,000 cfu/ml. Citrobacter farmeri Follow up; 3 months Scribe Gloria Cruz 07/22/2024 Chronic kidney disease, stage 3b (ICD-10 - N18.32) 08/24/2024 Hyperkalemia (ICD-10 - E87.5) CKD is stable but baseline is difficult to discern. Hypertension is controlled at home and in clinic. Hypokalemia has resolved now with hyperkalemia, likely exacerbated by acidosis, which is new onset. Anemia is improved and now at goal with normal iron studies. Proteinuria has improved and is now non-nephrotic. Hyperuricemia is currently asymptomatic 01/14/2024 Pyelonephritis (ICD-10 - N12) 1. Recurrent, complicated UTI's/Pyelonep hritis - 12-25-23; UW 816, UC a very sensitive Proteus, 11-29-23 UC Proteus, and Ec both VS - She is asymptomatic today - has stents in place 2. Antibiotics day #18 s/p stent exchange: Rocephin- duration of therapy 4 weeks 01-14-24; W 12.6, Striper 1.46, Crp 5.68 3. C. diff, PCR, and toxin positive this admission 12-26-23; - Completed Vanco to QID for 10 days, needs to continue Vanco 125 mg twice daily for the remainder of Rocephin and 7 days after - This is her second recurrence of C. difficile, on her third reoccurrence she will qualify for FMT Rebyota Check labs today/picc line care in offiice continue vancomycin po for duration of Rocephin and 7 days after She will return next Saturday the to coordinate appointments with Dr. Lorenzo for her pulmonary nodule evaluation She will return again on January 23 to coordinate for her last dose of IV Rocephin, daughter is paying [id number] for the last 4 doses We will administer her last dose of Rocephin here in the office on January 23 and then DC PICC line 4. Severe abdominal yeast candidiasis Begin Fluconazole 100 mg 1 dose every 3 days for 3 doses Continue to wound care/Interdry Check urine studies today Follow-up in 1 week 01/09/2024 Chronic kidney disease, stage 3b (ICD-10 - N18.32) 1. Recurrent, complicated UTI's/Pyelonep hritis - 12-25-23; UW 816, UC a very sensitive Proteus, 24 UC Proteus, and Ec both VS - She is asymptomatic today - has stents in place 2. Antibiotics day #13 s/p stent exchange: Rocephin- duration of therapy 4 weeks 3. C. diff, PCR, and toxin positive this admission 12-26-23; - Completed Vanco to QID for 10 days, needs to continue Vanco 125 mg twice daily for the remainder of Rocephin and 7 days after - This is her second recurrence of C. difficile, on her third reoccurrence she will qualify for FMT Rebyota Stools are returning to normal for her Check labs today in office, send orders to facility to continue vancomycin for duration of Rocephin and 7 days after She will return next Saturday the to coordinate appointments with Dr. Sandra for her pulmonary nodule evaluation She will return again on January 23 to coordinate for her last dose of IV Rocephin, daughter is paying [id number] for the last 4 doses We will administer her last dose of Rocephin here in the office on January 23 and then DC PICC line Follow-up in 1 week 01/24/2024 Pyelonephritis (ICD-10 - N12) 1. Recurrent, complicated UTI's/Pyelonep hritis - 12-25-23; UW 816, UC a very sensitive Proteus, 11-29-23 UC Proteus, and Ec both VS - She is asymptomatic today - has stents in place 2. Antibiotics day #28 s/p stent exchange: Rocephin, Changed to p.o. Augmentin (last 5 days)- duration of therapy 4 weeks EOT 01-14-24; W 12.6, Striper 1.46, Crp 5.68 01-24-24; W 7.7, Striper 1.48, Crp 3.13 3. C. diff, PCR, and toxin positive admission 12-26-23; - This is her second recurrence of C. difficile, on her third reoccurrence she will qualify for FMT Rebyota PICC line has been discontinued her last day of p.o. Augmentin is today Complete additional 7 days of vancomycin Will recheck surveillance urine studies next week she will need continued prophylaxis plan for Augmentin with vancomycin Will discuss with Dr. Monge 01/30/2024 Chronic kidney disease, stage 3b (ICD-10 - N18.32) 1. Recurrent, complicated UTI's/Pyelonep hritis - 12-25-23; UW 816, UC a very sensitive Proteus, 11-29-23 UC Proteus, and Ec both VS - She is asymptomatic today - has stents in place 2. Antibiotics day #28 s/p stent exchange: Rocephin, Changed to p.o. Augmentin (last 5 days)- duration of therapy 4 weeks EOT 01-14-24; W 12.6, Striper 1.46, Crp 5.68 01-24-24; W 7.7, Striper 1.48, Crp 3.13 3. C. diff, PCR, and toxin positive admission 12-26-23; 01-30-24; Check surveillance urine studies and check stools for cdiff - This is her second recurrence of C. difficile, on her third reoccurrence she will qualify for FMT Rebyota Hold off on UTI prophylaxis Will recheck surveillance urine studies today,she will need continued prophylaxis plan for Augmentin with vancomycin Will discuss with Dr. Monge 08/24/2024 Chronic kidney failure (ICD-10 - N18.9) 1. 68 yo white female with a history of chronic kidney disease, hyperlipidemia , hypertension, hypothyroidism , microcytic anemia, morbid obesity, type 2 diabetes with vascular disease, endometrial cancer, lymphoma and sleep apnea. 2.Hx of stroke 05-11-24 and waiting to see a Neurologist. -Hospitalized in [place] 3. Recurrent complicated UTI's - stents in place 11-03-23 - new stents were placed 03-28-2024 4. UTI Prophylaxis; - 08-24-24 continue Cefdinir 1 pill Mon, Wed, Fri (start date 05-28-24) Labs 02-10-24 UM RBC U 6, WBC U 637, Fernanda 3+, Hyaline cast 4, SQ epi 6, UC >100,000 cfu/ml. Citrobacter farmeri 08-16-24 UC Neg, UM WBC U 351, Striper 1.79, Hgb 10.2, Ur Prot 72.10, Uric acid 8.0 Follow up; 3 months Hazel Cruz 08/24/2024 Chronic kidney disease, stage 3b (ICD-10 - N18.32) 1. 68 yo white female with a history of chronic kidney disease, hyperlipidemia , hypertension, hypothyroidism , microcytic anemia, morbid obesity, type 2 diabetes with vascular disease, endometrial cancer, lymphoma and sleep apnea. 2.Hx of stroke 05-11-24 and waiting to see a Neurologist. -Hospitalized in [place] 3. Recurrent complicated UTI's - stents in place 11-03-23 - new stents were placed 03-28-2024 4. UTI Prophylaxis; - 08-24-24 continue Cefdinir 1 pill Mon, Wed, Fri (start date 05-28-24) Labs 02-10-24 UM RBC U 6, WBC U 637, Fernanda 3+, Hyaline cast 4, SQ epi 6, UC >100,000 cfu/ml. Citrobacter farmeri 08-16-24 UC Neg, UM WBC U 351, Striper 1.79, Hgb 10.2, Ur Prot 72.10, Uric acid 8.0 Follow up; 3 months Hazel Cruz 01/24/2024 Lymphoma, non-Hodgkin's (ICD-10 - C85.90) 1. Recurrent, complicated UTI's/Pyelonep hritis - 12-25-23; UW 816, UC a very sensitive Proteus, 11-29-23 UC Proteus, and Ec both VS - She is asymptomatic today - has stents in place 2. Antibiotics day #28 s/p stent exchange: Rocephin, Changed to p.o. Augmentin (last 5 days)- duration of therapy 4 weeks EOT 01-14-24; W 12.6, Striper 1.46, Crp 5.68 01-24-24; W 7.7, Striper 1.48, Crp 3.13 3. C. diff, PCR, and toxin positive admission 12-26-23; - This is her second recurrence of C. difficile, on her third reoccurrence she will qualify for FMT Rebyota PICC line has been discontinued her last day of p.o. Augmentin is today Complete additional 7 days of vancomycin Will recheck surveillance urine studies next week she will need continued prophylaxis plan for Augmentin with vancomycin Will discuss with Dr. Monge 01/14/2024 Lymphoma, non-Hodgkin's (ICD-10 - C85.90) 1. Recurrent, complicated UTI's/Pyelonep hritis - 12-25-23; UW 816, UC a very sensitive Proteus, 11-29-23 UC Proteus, and Ec both VS - She is asymptomatic today - has stents in place 2. Antibiotics day #18 s/p stent exchange: Rocephin- duration of therapy 4 weeks 01-14-24; W 12.6, Striper 1.46, Crp 5.68 3. C. diff, PCR, and toxin positive this admission 12-26-23; - Completed Vanco to QID for 10 days, needs to continue Vanco 125 mg twice daily for the remainder of Rocephin and 7 days after - This is her second recurrence of C. difficile, on her third reoccurrence she will qualify for FMT Rebyota Check labs today/picc line care in offiice continue vancomycin po for duration of Rocephin and 7 days after She will return next Saturday the to coordinate appointments with Dr. Lorenzo for her pulmonary nodule evaluation She will return again on January 23 to coordinate for her last dose of IV Rocephin, daughter is paying [id number] for the last 4 doses We will administer her last dose of Rocephin here in the office on January 23 and then DC PICC line 4. Severe abdominal yeast candidiasis Begin Fluconazole 100 mg 1 dose every 3 days for 3 doses Continue to wound care/Interdry Check urine studies today Follow-up in 1 week 08/24/2024 Hyperchloremic metabolic acidosis (ICD-10 - E87.29) CKD is stable but baseline is difficult to discern. Hypertension is controlled at home and in clinic. Hypokalemia has resolved now with hyperkalemia, likely exacerbated by acidosis, which is new onset. Anemia is improved and now at goal with normal iron studies. Proteinuria has improved and is now non-nephrotic. Hyperuricemia is currently asymptomatic 05/26/2024 Chronic kidney disease, stage 3b (ICD-10 - N18.32) 1. 68 yo white female with a history of chronic kidney disease, hyperlipidemia , hypertension, hypothyroidism , microcytic anemia, morbid obesity, type 2 diabetes with vascular disease, endometrial cancer, lymphoma and sleep apnea. 2.Hx of stroke 05-11-24 and waiting to see a Neurologist. -Hospitalized in [place] 3. Recurrent complicated UTI's - stents in place 11-03-23 - new stents were placed 03-28-2024 -Treated for UTI in 2024 while in hospital -05-28-24 asymptomatic today 4. UTI Prophylaxis; - Rx for Cefdinir called into pharmacy for UTI prophylaxis Sig; 1 pill Mon, Wed, Fri (start date 05-28-24) -pt is to call clinic if unable to afford this 5. C Difficile Prophylaxis; - 05-28-24 pt could not afford Vanco or Deficid so didnt take any. -05-28-24 still having intermitten diarrhea 6. Continued intermitten diarrhea, GI appt; scheduled in August 03, 2024 -consult to see Oncologist, hx of mysentary lymphoma Labs 02-06-24 W 8.9, Striper 1.73, CRP 2.12 CDiff Negative for Clostridium difficile toxin A and/or B , CDiff /Epi NAP1-BI PRESUMPTIVE NEGATIVE , 02-10-24 UM RBC U 6, WBC U 637, Fernanda 3+, Hyaline cast 4, SQ epi 6, UC >100,000 cfu/ml. Citrobacter farmeri Follow up; 3 months Hazel Cruz 07/22/2024 Anemia in chronic kidney disease (ICD-10 - D63.1) 04/14/2024 Chronic kidney disease, stage 3b (ICD-10 - N18.32) 1. 68 yo white female with a history of chronic kidney disease, hyperlipidemia , hypertension, hypothyroidism , microcytic anemia, morbid obesity, type 2 diabetes with vascular disease , endometrial cancer, lymphoma and sleep apnea. 2. Recurrent complicated UTI's - stents in place 11-03-23 - new stents were placed 03-28-2024 - Recurrent UTI 04-01-24 resolved s/p one week of Invanz - 04-14-24 Patient asymptomatic today 3. UTI Prophylaxis; - 04-14-24 Start Omnicef PO M,W,F for UTI prophylaxis 4. C Difficile Prophylaxis; - 04-14-24 Vancomycin PO BID for cdiff prophylaxis -04-14-24 Deficid PO BID (started 04-04-24) will be completed on 04-16-24 5. Continued diarrhea, consult to see GI for colonoscopy. Has appt scheduled in May 2024 -consult to see Oncologist, hx of mysentary lymphoma Labs 02-06-24 W 8.9, Striper 1.73, CRP 2.12 CDiff Negative for Clostridium difficile toxin A and/or B , CDiff /Epi NAP1-BI PRESUMPTIVE NEGATIVE , 02-10-24 UM RBC U 6, WBC U 637, Fernanda 3+, Hyaline cast 4, SQ epi 6, UC >100,000 cfu/ml. Citrobacter farmeri Follow up; 6 weeks Hazel Cruz 04/08/2024 Hypocalcemia (ICD-10 - E83.51) Chronic kidney disease stage IIIb at baseline. CKD likely due to chronic urinary obstruction, chronic UTIs, Hypertension, Diabetes and Age. Hypertension is controlled at home but uncontrolled in clinic. Diabetes is controlled. Following with urology for ureteral stent exchanges and chronic UTI. Proteinuria is likely d/t recurrent UTIs. Hypokalemia is mild. Hypocalcemia is mild. Anemia is below goal with unknown iron status. 02/06/2024 Chronic kidney disease, stage 3b (ICD-10 - N18.32) 1. Recurrent, complicated UTI's/Pyelonep hritis - 12-25-23; UW 816, UC a very sensitive Proteus, 11-29-23 UC Proteus, and Ec both VS - She is asymptomatic today - has stents in place 2. Antibiotics day #28 s/p stent exchange: Rocephin, Changed to p.o. Augmentin (last 5 days)- duration of therapy 4 weeks EOT 01-14-24; W 12.6, Striper 1.46, Crp 5.68 01-24-24; W 7.7, Striper 1.48, Crp 3.13 3. C. diff, PCR, and toxin positive admission 12-26-23; 02-06-24; Surveillance urine studies negative She was unable to leave stool sample for cdiff last week, stool was sent to the lab today (results pending 02-06-24) - This is her second recurrence of C. difficile, on her third reoccurrence she will qualify for FMT Rebyota Hold off on UTI prophylaxis until stool studies resulted Will recheck surveillance urine studies today,she will need continued prophylaxis plan for Augmentin with vancomycin She continues to have increased loose stools, begin Dificid, will await pending cultures Check labs today and follow-up on Saturday02/10/2024 Chronic kidney disease, stage 3b (ICD-10 - N18.32) 1. Recurrent, complicated UTI's/Pyelonep hritis - 12-25-23; UW 816, UC a very sensitive Proteus, 11-29-23 UC Proteus, and Ec both VS - She is asymptomatic today - has stents in place 2. Antibiotics day #28 s/p stent exchange: Rocephin, Changed to p.o. Augmentin (last 5 days)- duration of therapy 4 weeks Completed treatment 01-14-24; W 12.6, Striper 1.46, Crp 5.68 01-24-24; W 7.7, Striper 1.48, Crp 3.13 3. C. diff, PCR, and toxin positive admission 12-26-23; - This is her second recurrence of C. difficile 4. Continued loose stools 02-10-24; W 8.9, Striper 1.73, Crp 2.12 Working on approval for FMT Sada She continues to have increased loose stools, begin Dificid, will await pending cultures DC Imodium 5. Dysuria - Give Invanz 1 gm IM today Will recheck urine studies and labs today, order CT scan abd/pelvis She will need continued UTI prophylaxis plan for Augmentin with vancomycin 04/08/2024 Anemia in chronic kidney disease (ICD-10 - D63.1) Chronic kidney disease stage IIIb at baseline. CKD likely due to chronic urinary obstruction, chronic UTIs, Hypertension, Diabetes and Age. Hypertension is controlled at home but uncontrolled in clinic. Diabetes is controlled. Following with urology for ureteral stent exchanges and chronic UTI. Proteinuria is likely d/t recurrent UTIs. Hypokalemia is mild. Hypocalcemia is mild. Anemia is below goal with unknown iron status. 08/24/2024 Anemia in chronic kidney disease (ICD-10 - D63.1) CKD is stable but baseline is difficult to discern. Hypertension is controlled at home and in clinic. Hypokalemia has resolved now with hyperkalemia, likely exacerbated by acidosis, which is new onset. Anemia is improved and now at goal with normal iron studies. Proteinuria has improved and is now non-nephrotic. Hyperuricemia is currently asymptomatic 07/22/2024 History of lymphoma (ICD-10 - Z85.72) 01/14/2024 Chronic kidney failure (ICD-10 - N18.9) 1. Recurrent, complicated UTI's/Pyelonep hritis - 12-25-23; UW 816, UC a very sensitive Proteus, 11-29-23 UC Proteus, and Ec both VS - She is asymptomatic today - has stents in place 2. Antibiotics day #18 s/p stent exchange: Rocephin- duration of therapy 4 weeks 01-14-24; W 12.6, Striper 1.46, Crp 5.68 3. C. diff, PCR, and toxin positive this admission 12-26-23; - Completed Vanco to QID for 10 days, needs to continue Vanco 125 mg twice daily for the remainder of Rocephin and 7 days after - This is her second recurrence of C. difficile, on her third reoccurrence she will qualify for FMT Rebyota Check labs today/picc line care in offiice continue vancomycin po for duration of Rocephin and 7 days after She will return next Saturday the to coordinate appointments with Dr. Lorenzo for her pulmonary nodule evaluation She will return again on January 23 to coordinate for her last dose of IV Rocephin, daughter is paying [id number] for the last 4 doses We will administer her last dose of Rocephin here in the office on January 23 and then DC PICC line 4. Severe abdominal yeast candidiasis Begin Fluconazole 100 mg 1 dose every 3 days for 3 doses Continue to wound care/Interdry Check urine studies today Follow-up in 1 week 01/24/2024 Chronic kidney failure (ICD-10 - N18.9) 1. Recurrent, complicated UTI's/Pyelonep hritis - 12-25-23; UW 816, UC a very sensitive Proteus, 11-29-23 UC Proteus, and Ec both VS - She is asymptomatic today - has stents in place 2. Antibiotics day #28 s/p stent exchange: Rocephin, Changed to p.o. Augmentin (last 5 days)- duration of therapy 4 weeks EOT --01-14-24; W 12.6, Striper 1.46, Crp 5.68 01-24-24; W 7.7, Striper 1.48, Crp 3.13 3. C. diff, PCR, and toxin positive admission 12-26-23; - This is her second recurrence of C. difficile, on her third reoccurrence she will qualify for FMT Rebyota PICC line has been discontinued her last day of p.o. Augmentin is today Complete additional 7 days of vancomycin Will recheck surveillance urine studies next week she will need continued prophylaxis plan for Augmentin with vancomycin Will discuss with Dr. Monge 01/24/2024 Chronic kidney disease, stage 3b (ICD-10 - N18.32) 1. Recurrent, complicated UTI's/Pyelonep hritis - 12-25-23; UW 816, UC a very sensitive Proteus, 11-29-23 UC Proteus, and Ec both VS - She is asymptomatic today - has stents in place 2. Antibiotics day #28 s/p stent exchange: Rocephin, Changed to p.o. Augmentin (last 5 days)- duration of therapy 4 weeks EOT --01-14-24; W 12.6, Striper 1.46, Crp 5.68 01-24-24; W 7.7, Striper 1.48, Crp 3.13 3. C. diff, PCR, and toxin positive admission 12-26-23; - This is her second recurrence of C. difficile, on her third reoccurrence she will qualify for FMT Rebyota PICC line has been discontinued her last day of p.o. Augmentin is today Complete additional 7 days of vancomycin Will recheck surveillance urine studies next week she will need continued prophylaxis plan for Augmentin with vancomycin Will discuss with Dr. Monge 01/14/2024 Chronic kidney disease, stage 3b (ICD-10 - N18.32) 1. Recurrent, complicated UTI's/Pyelonep hritis - 12-25-23; UW 816, UC a very sensitive Proteus, 11-29-23 UC Proteus, and Ec both VS - She is asymptomatic today - has stents in place 2. Antibiotics day #18 s/p stent exchange: Rocephin- duration of therapy 4 weeks 01-13-24; W 12.6, Striper 1.46, Crp 5.68 3. C. diff, PCR, and toxin positive this admission 12-26-23; - Completed Vanco to QID for 10 days, needs to continue Vanco 125 mg twice daily for the remainder of Rocephin and 7 days after - This is her second recurrence of C. difficile, on her third reoccurrence she will qualify for FMT Rebyota Check labs today/picc line care in offiice continue vancomycin po for duration of Rocephin and 7 days after She will return next Saturday the to coordinate appointments with Dr. Lorenzo for her pulmonary nodule evaluation She will return again on January 23 to coordinate for her last dose of IV Rocephin, daughter is paying [id number] for the last 4 doses We will administer her last dose of Rocephin here in the office on January 23 and then DC PICC line 4. Severe abdominal yeast candidiasis Begin Fluconazole 100 mg 1 dose every 3 days for 3 doses Continue to wound care/Interdry Check urine studies today Follow-up in 1 week 07/22/2024 History of endometrial cancer (ICD-10 - Z85.42) 08/24/2024 Nephrotic range proteinuria (ICD-10 - R80.9) CKD is stable but baseline is difficult to discern. Hypertension is controlled at home and in clinic. Hypokalemia has resolved now with hyperkalemia, likely exacerbated by acidosis, which is new onset. Anemia is improved and now at goal with normal iron studies. Proteinuria has improved and is now non-nephrotic. Hyperuricemia is currently asymptomatic 08/24/2024 Hyperuricemia (ICD-10 - E79.0) CKD is stable but baseline is difficult to discern. Hypertension is controlled at home and in clinic. Hypokalemia has resolved now with hyperkalemia, likely exacerbated by acidosis, which is new onset. Anemia is improved and now at goal with normal iron studies. Proteinuria has improved and is now non-nephrotic. Hyperuricemia is currently asymptomatic 07/22/2024 Nicotine dependence, cigarettes, in remission (ICD-10 - F17.211) 07/22/2024 MATT (obstructive sleep apnea) (ICD-10 - G47.33) 11/29/2023 Other Continue curren t antihypertensives and monitor blood pressure daily with a goal of less than 140/80, Low-sodium diet. Avoid nephrotoxins, NSAIDs and IV contrast, Renal dose medications for GFR of less than 40. Follow-up with urology as scheduled. Continue doxycycline for UTI. Monitor urine protein creatinine ratio. Stay well-hydrated, Follow-up with PCP for diabetic control, Follow-up with Dr. Martin in 4 months with labs at [place] 5 to 10 days prior to appointment Chronic kidney disease stage IIIb based on current labs available, CKD likely due to chronic obstruction, Hypertension, Diabetes and Age. Hypertension is controlled. Diabetes is controlled by report. Following with urology for ureteral stent exchanges and chronic UTI. Proteinuria is likely d/t UTI. 12/10/2023 Other Rin Latif am scribing for, and in the presence of Dr. Corky Lorenzo. I, Dr. Corky Lorenzo, personally performed the services described in this documentation , as scribed by Rin Greene in my presence, and it is both accurate and complete. 01/09/2024 Other Hospital records and medications reviewed and reconciled Dedicated time for questions from patient and family was taken and all questions were answered to the best of our ability 1. Recurrent, complicated UTI's/Pyelonep hritis - 12-25-23; UW 816, UC a very sensitive Proteus, 11-29-23 UC Proteus, and Ec both VS - She is asymptomatic today - has stents in place 2. Antibiotics day #13 s/p stent exchange: Rocephin- duration of therapy 4 weeks 3. C. diff, PCR, and toxin positive this admission 12-26-23; - Completed Vanco to QID for 10 days, needs to continue Vanco 125 mg twice daily for the remainder of Rocephin and 7 days after - This is her second recurrence of C. difficile, on her third reoccurrence she will qualify for FMT Rebyota Stools are returning to normal for her Check labs today in office, send orders to facility to continue vancomycin for duration of Rocephin and 7 days after She will return next Saturday the to coordinate appointments with Dr. Sandra for her pulmonary nodule evaluation She will return again on January 23 to coordinate for her last dose of IV Rocephin, daughter is paying [id number] for the last 4 doses We will administer her last dose of Rocephin here in the office on January 23 and then DC PICC line Follow-up in 1 week 01/14/2024 Other Rin Latif am scribing for, and in the presence of Dr. Corky Lorenzo. I, Dr. Corky Lorenzo, personally performed the services described in this documentation , as scribed by Rin Greene in my presence, and it is both accurate and complete. 01/14/2024 Other 1. Recurrent, complicated UTI's/Pyelonep hritis - 12-25-23; UW 816, UC a very sensitive Proteus, 11-29-23 UC Proteus, and Ec both VS - She is asymptomatic today - has stents in place 2. Antibiotics day #18 s/p stent exchange: Rocephin- duration of therapy 4 weeks 01-14-24; W 12.6, Striper 1.46, Crp 5.68 3. C. diff, PCR, and toxin positive this admission 12-26-23; - Completed Vanco to QID for 10 days, needs to continue Vanco 125 mg twice daily for the remainder of Rocephin and 7 days after - This is her second recurrence of C. difficile, on her third reoccurrence she will qualify for FMT Rebyota Check labs today/picc line care in offiice continue vancomycin po for duration of Rocephin and 7 days after She will return next Saturday the to coordinate appointments with Dr. Lorenzo for her pulmonary nodule evaluation She will return again on January 23 to coordinate for her last dose of IV Rocephin, daughter is paying [id number] for the last 4 doses We will administer her last dose of Rocephin here in the office on January 23 and then DC PICC line 4. Severe abdominal yeast candidiasis Begin Fluconazole 100 mg 1 dose every 3 days for 3 doses Continue to wound care/Interdry Check urine studies today Follow-up in 1 week 01/24/2024 Other Hospital records reviewed, medication list reviewed and reconciled 7-day supply of refills sent in for patient instructed to follow-up with primary care provider for further refills for nifedipine and magnesium 1. Recurrent, complicated UTI's/Pyelonep hritis - 12-25-23; UW 816, UC a very sensitive Proteus, 11-29-23 UC Proteus, and Ec both VS - She is asymptomatic today - has stents in place 2. Antibiotics day #28 s/p stent exchange: Rocephin, Changed to p.o. Augmentin (last 5 days)- duration of therapy 4 weeks EOT 01-13-24; W 12.6, Striper 1.46, Crp 5.68 01-24-24; W 7.7, Striper 1.48, Crp 3.13 3. C. diff, PCR, and toxin positive admission 12-26-23; - This is her second recurrence of C. difficile, on her third reoccurrence she will qualify for FMT Rebyota PICC line has been discontinued her last day of p.o. Augmentin is today Complete additional 7 days of vancomycin Will recheck surveillance urine studies next week she will need continued prophylaxis plan for Augmentin with vancomycin Will discuss with Dr. Monge 01/30/2024 Other 1. Recurrent, complicated UTI's/Pyelonep hritis - 12-25-23; UW 816, UC a very sensitive Proteus, 11-29-23 UC Proteus, and Ec both VS - She is asymptomatic today - has stents in place 2. Antibiotics day #28 s/p stent exchange: Rocephin, Changed to p.o. Augmentin (last 5 days)- duration of therapy 4 weeks EOT -01-14-24; W 12.6, Striper 1.46, Crp 5.68 01-24-24; W 7.7, Striper 1.48, Crp 3.13 3. C. diff, PCR, and toxin positive admission 12-26-23; 01-30-24; Check surveillance urine studies and check stools for cdiff - This is her second recurrence of C. difficile, on her third reoccurrence she will qualify for FMT Rebyota Hold off on UTI prophylaxis Will recheck surveillance urine studies today,she will need continued prophylaxis plan for Augmentin with vancomycin Will discuss with Dr. Monge 02/06/2024 Other Begin process f or approval fecal transplant with Rebyota 1. Recurrent, complicated UTI's/Pyelonep hritis - 12-25-23; UW 816, UC a very sensitive Proteus, 11-29-23 UC Proteus, and Ec both VS - She is asymptomatic today - has stents in place 2. Antibiotics day #28 s/p stent exchange: Rocephin, Changed to p.o. Augmentin (last 5 days)- duration of therapy 4 weeks EOT --24 24; W 12.6, Striper 1.46, Crp 5.68 01-24-24; W 7.7, Striper 1.48, Crp 3.13 3. C. diff, PCR, and toxin positive admission 12-26-23; 02-06-24; Surveillance urine studies negative She was unable to leave stool sample for cdiff last week, stool was sent to the lab today (results pending 02-06-24) - This is her second recurrence of C. difficile, on her third reoccurrence she will qualify for FMT Rebyota Hold off on UTI prophylaxis until stool studies resulted Will recheck surveillance urine studies today,she will need continued prophylaxis plan for Augmentin with vancomycin She continues to have increased loose stools, begin Dificid, will await pending cultures Check labs today and follow-up on Saturday02/10/2024 Other 1. Recurrent, complicated UTI's/Pyelonep hritis - 12-25-23; UW 816, UC a very sensitive Proteus, 11-29-23 UC Proteus, and Ec both VS - She is asymptomatic today - has stents in place 2. Antibiotics day #28 s/p stent exchange: Rocephin, Changed to p.o. Augmentin (last 5 days)- duration of therapy 4 weeks Completed treatment 01-14-24; W 12.6, Striper 1.46, Crp 5.68 01-24-24; W 7.7, Striper 1.48, Crp 3.13 3. C. diff, PCR, and toxin positive admission 12-26-23; - This is her second recurrence of C. difficile 4. Continued loose stools 02-10-24; W 8.9, Striper 1.73, Crp 2.12 Working on approval for FMT Rebyota She continues to have increased loose stools, begin Dificid, will await pending cultures DC Imodium 5. Dysuria - Give Invanz 1 gm IM today Will recheck urine studies and labs today, order CT scan abd/pelvis She will need continued UTI prophylaxis plan for Augmentin with vancomycin 04/08/2024 Other Repeat BMP tomorrow at Dr [facility] clinic to re-evaluate potassium and calcium levels. Will also check PTH and phosphorus to evaluate hypocalcium. Evaluate anemia and iron status with iron studies at Dr Louis's tomorrow. Increase lisinopril to 20 mg daily and continue to monitor blood pressure daily with a goal of 130/80 or less. Recommend following a low-sodium diet. Avoid nephrotoxins, including NSAIDs. Renal dose medications for GFR of less than 40 mL/min. Follow-up with urology as scheduled. Monitor urine protein/creatinine ratio. Stay well-hydrated. Follow-up with PCP for diabetic control. Follow-up in 4-5 months with labs at [place] 5 to 10 days prior to appointment BMP, phos, PTH, uric, Hgb, iron studies, UA, UPC, serum albumin The patient was instructed to follow up with their PCP for preventative health screenings. Chronic kidney disease stage IIIb at baseline. CKD likely due to chronic urinary obstruction, chronic UTIs, Hypertension, Diabetes and Age. Hypertension is controlled at home but uncontrolled in clinic. Diabetes is controlled. Following with urology for ureteral stent exchanges and chronic UTI. Proteinuria is likely d/t recurrent UTIs. Hypokalemia is mild. Hypocalcemia is mild. Anemia is below goal with unknown iron status. 08/24/2024 Other Decrease potassium intake and repeat BMP in 1 week. Continue lisinopril 20 mg daily and continue to monitor blood pressure daily with a goal less than 130/80. Dose medications for GFR less than 60 ml/min. Low sodium diet. Avoid nephrotoxins. Risk factor modification. Monitor proteinuria. Monitor uric acid. Monitor anemia labs. In one week repeat BMP at [place]. Follow-up in 3-4 months with labs at [place] 5 to 10 days prior to appointment BMP, phos, PTH, uric, Hgb, iron studies, UA, UPC, serum albumin The patient was instructed to follow up with their PCP for preventative health screenings. CKD is stable but baseline is difficult to discern. Hypertension is controlled at home and in clinic. Hypokalemia has resolved now with hyperkalemia, likely exacerbated by acidosis, which is new onset. Anemia is improved and now at goal with normal iron studies. Proteinuria has improved and is now non-nephrotic. Hyperuricemia is currently asymptomatic 03/31/2024 Other Chronic k idney disease stage IIIb based on current labs available, CKD likely due to chronic obstruction, Hypertension, Diabetes and Age. Hypertension is controlled. Diabetes is controlled by report. Following with urology for ureteral stent exchanges and chronic UTI. Proteinuria is likely d/t UTI. Plan Of Treatment Pending Test Test Name Order Date Culture Urine [id number] 11/29/2023 Basic Metabolic Panel (BMP) 74999 2024 Basic Metabolic Panel (BMP) 97272 2022 CBC w\ Auto Diff 31363 05/21/2022 Ferritin 17308 04/08/2024 Hematocrit 71826 04/08/2024 Hemoglobin 79625 04/08/2024 Phosphorus (B) 77374 04/08/2024 Vitamin D Total (B) 56564 04/08/2024 PTH Intact 28296 04/08/2024 CDiff PCR Rfx C diff Toxin NAP/EPI 33927 , 10130 02/10/2024 Miscellaneous Test 02/10/2024 CT Abdomen, Pelvis w/ + w/o Contrast-741 78 02/10/2024 Electrocardiogram 12 Lead Tracing-08245 05/21/2022 % Iron Saturation (Fe & TIBC)--74354,835 50 04/08/2024 Culture Urine Reflex--[id number] 05/21/2022 Future Test Test Name Order Date Albumin 51129 03/27/2024 Basic Metabolic Panel (BMP) 39404 2024 Hemoglobin 97365 03/27/2024 Magnesium (B) 01059 03/27/2024 Phosphorus (B) 20604 03/27/2024 Protein (U) Random 80510 03/27/2024 Uric Acid (B) 20223 03/27/2024 Vitamin D Total (B) 71733 03/27/2024 Creatinine (U) 24418 03/27/2024 UA Reflex Micro, Reflex Cult 38677, 8101 5, 17604 03/27/2024 PTH Intact 56352 03/27/2024 Basic Metabolic Panel (BMP) 57133 2024 Next Appt Details Provider Name:Abelardo del rosario, 11/24/2024 12:30:00 PM, [address] [place] [address] AB Hernandez [place], [place], [id number], Provider Name:Mansi monroe, 12/23/2024 01:00:00 PM, [address] [place] [address] Ab Gallegos [address], [place], [place], [id number], Insurance Providers Payer Name Payer Address Payer Phone Subscriber Number Group Number Insured Name Patient Relationship to Insured Coverage Start Date Coverage End Date [employer] Medicare Replacement [address] [address] [place] [address] [id number] [id number] BECKMAN Self - patient is the insured Medical (General) History Medical History History ICD Code Bladder cancer Thyroid dx Diabetes Hyperlipidemia Hypertension Arthritis Urosepsis Anemia urinary incontinence measles Chicken Pox whooping cough (pertussis) Pneumonia Carotid artery stenosis measles chicken pox lymphoma blood transfusion stroke colon plyps fatty liver rashes sleep apnea High Blood Pressure chronic back/neck pain gout or high uric acid Surgical History Surgery Date(Month/Year) Stents replaced/ Angiogram/[facility] cyst removal in hand angioplasty 2023 Stents in kidney 2023 cyst removal bladder bx 06/05/22 cholecystectomy hysterectomy, total with bilateral salpi hung-oophorectomy (BSO) Hospitalization History Reason Date(Month/Year) ED- Right side pain/UTI... CT/Labs/Cu lture done 11/29/2023 Stroke/[facility] rectal bleeding 01/15 stroke 03/2023 [facility] UTI inspired sepsi s 02/2022 see sx hx
--- NOTE | 2024-09-20 05:14 | CTR_ITS ---
PROCEDURE INFORMATION: Exam: CT Head Without Contrast Exam date and time: 09/20/2024 5:22 AM Age: 69 years old Clinical indication: Stroke-like symptoms; RT upper extremity weakness; Additional info: Patient awoke from sleep with numbness/tingling to RT upper extremity. Last known well time of 2300 hours yesterday. History of extensive occlusion of left ica. TECHNIQUE: Imaging protocol: Computed tomography of the head without contrast. Radiation optimization: All CT scans at this facility use at least one of these dose optimization techniques: automated exposure control; mA and/or kV adjustment per patient size (includes targeted exams where dose is matched to clinical indication); or iterative reconstruction. Other technique: STROKE PROTOCOL was implemented. COMPARISON: CT angio headneck* [id number] 05/17/2024 3:35 PM RADIATION DOSE METRICS: Total DLP (mGy-cm): 1119.25 FINDINGS: Brain: Normal. No hemorrhage. Unremarkable white matter. No mass effect. Cerebral ventricles: No ventriculomegaly. Paranasal sinuses: Visualized sinuses are unremarkable. No fluid levels. Mastoid air cells: Visualized mastoid air cells are well aerated. Bones: Unremarkable. No acute fracture. Soft tissues: Unremarkable. CT/CT head thrombolytic 54121 IMPRESSION: No acute intracranial abnormality. ASSESSMENT: ASPECTS ([place] Stroke Program Early CT Score) is 10.
--- NOTE | 2024-09-20 05:14 | ECG_ITS ---
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 Measurements Intervals [place] Rate: 64 P: 39 SC: 236 QRS: -66 QRSD: 154 T: 48 QT: 441 QTc: 457 Interpretive Statements SINUS RHYTHM WITH FIRST DEGREE AV BLOCK RIGHT BUNDLE BRANCH BLOCK [120+ ms QRS DURATION, UPRIGHT V1, 40+ ms S IN I/aVL/V4/V5/V6] LEFT ANTERIOR FASCICULAR BLOCK [QRS AXIS <= -45, QR IN I, RS IN II] Compared to ECG 05/11/2024 08:44:00 First degree AV block now present Myocardial infarct finding no longer present Electronically Signed On 09-24-2024 09:13:43 CDT by Rohan Mason M.D. [email or web address]
--- NOTE | 2024-09-20 05:14 | XRR_ITS ---
PROCEDURE INFORMATION: Exam: XR Chest Exam date and time: 09/20/2024 5:47 AM Age: 69 years old Clinical indication: Other: RT upper ext numbness; Additional info: AMS TECHNIQUE: Imaging protocol: Radiologic exam of the chest. Views: 1 view. COMPARISON: CT chest con [id number] 07/24/2023 12:05 PM FINDINGS: Lungs: Unremarkable. No consolidation. Pleural spaces: Unremarkable. No pleural effusion. No pneumothorax. Heart/Mediastinum: Cardiomegaly. Bones/joints: Unremarkable. XR/XR chest 1V portable [id number] IMPRESSION: Cardiomegaly. No acute process
--- NOTE | 2024-09-20 05:17 | W.ED.NEUROSD ---
Documented by User: Manuel Remy, DO 09/20/24 15:38 HPI - Neuro Symptoms/Deficit General: Chief Complaint: Neuro Symptoms/Deficit Stated Complaint: right side numb weak Time Seen by Provider: 09/20/24 05:06 History of Present Illness: 69-year-old female who woke up around 5 or little before this morning with some paresthesias to her right upper extremity, shakiness with motion, and weakness. She states that she has a headache, she points to her right frontotemporal region. She did not have the symptoms when she went to bed last night. Daughter states that she was mildly confused yesterday at times. No fever. No vomiting. No other symptoms. She has a history of a stroke back in April. 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 Related Data Home Medications ?Medication ?Instructions ?Recorded ?Confirmed glyburide 2.5 mg tablet 2.5 mg PO BID 09/05/20 09/20/24 metoprolol succinate 50 mg 50 mg PO DAILY 04/30/22 09/20/24 tablet,extended release 24 hr tamsulosin 0.4 mg capsule 0.4 mg PO DAILY 04/30/22 09/20/24 acidophilus 100 million 1 cap PO DAILY 06/27/24 09/20/24 cell-pectin, citrus 10 mg capsule cefdinir 300 mg capsule See Rx Instructions .Route .COMPLEX 06/27/24 09/20/24 ferrous sulfate 325 mg (65 mg 325 mg PO DAILY 06/27/24 09/20/24 iron) tablet (Iron (ferrous sulfate)) levothyroxine 88 mcg tablet 88 mcg PO QAM 06/27/24 09/20/24 hydralazine 25 mg tablet 25 mg PO BID 09/20/24 09/20/24 Previous Rx's ?Medication ?Instructions ?Recorded Diabetic shoes and 3 pairs of #1 ea 05/04/22 inserts aspirin 81 mg tablet,delayed 81 mg PO DAILY #30 tabs 04/13/23 release (Adult Aspirin Regimen) atorvastatin 40 mg tablet 40 mg PO BEDTIME #30 tabs 04/13/23 Allergies Allergy/AdvReac Type Severity Reaction Status Date / Time adhesive tape Allergy rash Verified 07/25/23 13:53 ciprofloxacin (From Cipro) Allergy peeling of Verified 07/25/23 13:53 hands and feet latex Allergy ALGY-Rash Verified 07/25/23 13:53 silver (From Tegaderm AG Allergy Unknown Verified 08/27/24 10:55 Mesh) sulfamethoxazole (From Allergy doesn't Verified 07/25/23 13:53 Bactrim) work trimethoprim (From Bactrim) Allergy doesn't Verified 07/25/23 13:53 work PFSH ED PFSH: Medical History Lymphoma Diabetes History of endometrial cancer DJD (degenerative joint disease) Chronic kidney disease Chronic UTI Hypertension Anemia History of nonmelanoma skin cancer Hodgkin lymphoma Thyroid disease Arthritis Surgical History History of cholecystectomy H/O: hysterectomy Family History Mother Diabetes Other Cancer Social History Smoking and tobacco/nicotine status: former use of tobacco/nicotine Quit status (tobacco/nicotine): has quit using Year quit tobacco: 1979 Former quit date comment: 0.5ppd X 1 year Alcohol intake: never NIH stroke score NIHSS: Level Of Consciousness - 1a: 0 Level Of Consciousness Questions - 1b: Both Correct Level Of Consciousness Commands - 1c: Both Correct Best Gaze - 2: Normal Visual Roman - 3: No Visual Loss Facial Palsy - 4: Normal Motor Arm Right - 5: No Drift Motor Arm Left - 5: No Drift Motor Leg Right - 6: No Drift Motor Leg Left - 6: No Drift Limb Ataxia - 7: Absent Sensory - 8: Normal Best Language - 9: No Aphasia Dysarthia - 10: Normal Extinction And Inattention - 11: 0 Score: Total Score: 0 Physical Exam Const: GENERAL APPEARANCE: cooperative and anxious ORIENTATION/CONSCIOUSNESS: Yes awake, Yes oriented to person, Yes oriented to place and Yes oriented to time HENMT: COMMON NORMALS: normocephalic HEAD & SCALP: normocephalic Eye: COMMON NORMALS: Equal, round and reactive pupils present, EOMs intact bilaterally and conjunctivae normal CONJUNCTIVA: Yes conjunctivae normal PUPIL: Yes Equal, round and reactive pupils present Resp: COMMON NORMALS: normal respiratory effort, No retractions and clear to auscultation bilaterally AUSCULTATION: clear to auscultation bilaterally Cardio: COMMON NORMALS: regular rate and regular rhythm RATE: regular rate RHYTHM: regular rhythm Neuro: SENSORIUM/ORIENTATION: Yes oriented to person, Yes oriented to place and Yes oriented to time Course Vital Signs: Vital signs: Vital Signs Temperature 98.2 F 09/20/24 13:08 Pulse Rate 60 09/20/24 13:08 Respiratory Rate 18 09/20/24 13:08 Blood Pressure 158/73 09/20/24 13:08 Pulse Oximetry 96 09/20/24 13:08 Oxygen Delivery Me thod Room Air 09/20/24 13:08 MDM - Neuro Symptoms/Deficit Medical Decision Making Patient is NIH score is a 0. She is hypertensive here she is quite anxious. She is out of window for tPA treatment, as her last known well was sometime around 11 PM last night. Lab Data 09/20/24 05:22 09/20/24 05:22 Radiology Impressions Chest X-Ray 09/20/24 05:14 IMPRESSION: Cardiomegaly. No acute process Head CT 09/20/24 05:14 IMPRESSION: No acute intracranial abnormality. ASSESSMENT: ASPECTS ([place] Stroke Program Early CT Score) is 10. ADDENDUM: 09/20/24 0558 THIS REPORT CONTAINS FINDINGS THAT MAY BE CRITICAL TO PATIENT CARE. The findings were verbally communicated via telephone conference with MANUEL REMY at 5:56 AM CDT on 09/20/2024. The findings were acknowledged and understood. Laboratory Results WBC 9.95 10^3/uL (3.29-11.43) 09/20/24 05:22 RBC 3.47 10^6/uL (3.85-5.65) L 09/20/24 05:22 Hgb 9.80 g/dL (11.27-16.99) L 09/20/24 05:22 Hct 32.2 % (36-47) L 09/20/24 05:22 MCV 92.8 fl (85-98) 09/20/24 05:22 MCH 28.2 pg (27-33) 09/20/24 05:22 MCHC 30.4 g/dL (30-55) 09/20/24 05:22 RDW 13.7 % (12.1-15.1) 09/20/24 05:22 Plt Count 130 10^3/cmm (157-399) L 09/20/24 05:22 MPV 11.9 fL (7.4-10.4) H 09/20/24 05:22 Neut % (Auto) 30.8 % 09/20/24 05:22 Lymph % (Auto) 46.2 % 09/20/24 05:22 [place] % (Auto) 21.8 % 09/20/24 05:22 Eos % (Auto) 0.7 % 09/20/24 05:22 Baso % (Auto) 0.2 % 09/20/24 05:22 Neut # (Auto) 3.06 10^3/uL (1.8-7.7) 09/20/24 05:22 Lymph # (Auto) 4.6 10^3/uL (0.8-4.8) 09/20/24 05:22 [place] # (Auto) 2.2 10^3/uL (0.2-0.9) H 09/20/24 05:22 Eos # (Auto) 0.1 10^3/uL (0.0-0.8) 09/20/24 05:22 Baso # (Auto) 0.0 10^3/uL (0.0-0.1) 09/20/24 05:22 Nucleated RBC % (auto) 0 % 09/20/24 05:22 Nucleated RBCs # 0.0 /100WBC 09/20/24 05:22 PT 13.60 SECONDS (12.1-14.9) 09/20/24 05:22 INR 0.97 (0.8-1.2) 09/20/24 05:22 APTT 26.2 SECONDS (23.9-36.7) 09/20/24 05:22 Sodium 136 mmol/L (136-145) 09/20/24 05:22 Potassium 5.1 mmol/L (3.5-5.1) 09/20/24 05:22 Chloride 106 mmol/L (98-107) 09/20/24 05:22 Carbon Dioxide 19 mmol/L (22-29) L 09/20/24 05:22 Anion Gap 16.1 (5-19) 09/20/24 05:22 BUN 37 mg/dL (8-23) H 09/20/24 05:22 Creatinine 2.3 mg/dL (0.5-0.9) H 09/20/24 05:22 GFR Calculation Not Reportable 09/20/24 05:22 Glucose 122 mg/dL (65-115) H 09/20/24 05:22 Calculated Osmolality 292 mOsm/kg (285-295) 09/20/24 05:22 Calcium 8.8 mg/dL (8.5-10.5) 09/20/24 05:22 Total Bilirubin 0.3 mg/dL (0.15-1.2) 09/20/24 05:22 AST 14 U/L (0-32) 09/20/24 05:22 ALT 12 U/L (0-33) 09/20/24 05:22 Alkaline Phosphatase 102 U/L (35-105) 09/20/24 05:22 Total Protein 8.2 g/dL (6.6-8.7) 09/20/24 05:22 Albumin 3.6 g/dL (3.5-5.2) 09/20/24 05:22 Globulin 4.6 g/dL (1.3-4.6) 09/20/24 05:22 Urine Color Yellow (Yellow) 09/20/24 06:37 Urine Appearance Cloudy (CLEAR) A 09/20/24 06:37 Urine pH 7.5 (5-7) 09/20/24 06:37 Ur Specific [place] 1.012 (1.005-1.030) 09/20/24 06:37 Urine Protein 1+ (Negative) A 09/20/24 06:37 Urine Glucose (UA) Negative (Normal) 09/20/24 06:37 Urine Ketones Negative (Negative) 09/20/24 06:37 Urine Blood 2+ (Negative) A 09/20/24 06:37 Urine Nitrate Negative (Negative) 09/20/24 06:37 Urine Bilirubin Negative (Negative) 09/20/24 06:37 Urine Urobilinogen 0.2 mg/dL (Negative) 09/20/24 06:37 Ur Leukocyte Esterase 3+ (Negative) A 09/20/24 06:37 Urine RBC >100 /hpf (0-2) H 09/20/24 06:37 Urine WBC >100 /hpf (0-5) H 09/20/24 06:37 Ur Squamous Epith Cells 0-5 /hpf (0-5) 09/20/24 06:37 Amorphous Sediment Not Reportable 09/20/24 06:37 Urine Bacteria Trace /hpf (NONE) 09/20/24 06:37 Hyaline Casts 6.20 /lpf 09/20/24 06:37 Urine Opiates Screen Negative ng/mL (Negative) 09/20/24 06:37 Ur Barbiturates Screen Negative ng/mL (Negative) 09/20/24 06:37 Ur Phencyclidine Scrn Negative ng/mL (Negative) 09/20/24 06:37 Ur Amphetamines Screen Negative ng/mL (Negative) 09/20/24 06:37 U Benzodiazepines Scrn Positive ng/mL (Negative) H 09/20/24 06:37 Urine Cocaine Screen Negative ng/mL (Negative) 09/20/24 06:37 U Marijuana (THC) Screen Negative ng/mL (Negative) 09/20/24 06:37 Discharge Plan Discharge Patient Disposition: Placed in Observation Admit Provider: Agatha Duron Clinical Impression: Acute cystitis, Altered mental status, DENNISE (acute kidney injury) Coding Level of Care Code ED Hand Box Coverer for Chg Fwd Documented by User: Fei Delcid MD 09/20/24 08:17 HPI - Neuro Symptoms/Deficit General: Chief Complaint: Neuro Symptoms/Deficit Stated Complaint: right side numb weak Time Seen by Provider: 09/20/24 05:06 Related Data Home Medications ?Medication ?Instructions ?Recorded ?Confirmed glyburide 2.5 mg tablet 2.5 mg PO BID 09/05/20 09/20/24 metoprolol succinate 50 mg 50 mg PO DAILY 04/30/22 09/20/24 tablet,extended release 24 hr tamsulosin 0.4 mg capsule 0.4 mg PO DAILY 04/30/22 09/20/24 acidophilus 100 million 1 cap PO DAILY 06/27/24 09/20/24 cell-pectin, citrus 10 mg capsule cefdinir 300 mg capsule See Rx Instructions .Route .COMPLEX 06/27/24 09/20/24 ferrous sulfate 325 mg (65 mg 325 mg PO DAILY 06/27/24 09/20/24 iron) tablet (Iron (ferrous sulfate)) levothyroxine 88 mcg tablet 88 mcg PO QAM 06/27/24 09/20/24 hydralazine 25 mg tablet 25 mg PO BID 09/20/24 09/20/24 Previous Rx's ?Medication ?Instructions ?Recorded Diabetic shoes and 3 pairs of #1 ea 05/04/22 inserts aspirin 81 mg tablet,delayed 81 mg PO DAILY #30 tabs 04/13/23 release (Adult Aspirin Regimen) atorvastatin 40 mg tablet 40 mg PO BEDTIME #30 tabs 04/13/23 Allergies Allergy/AdvReac Type Severity Reaction Status Date / Time adhesive tape Allergy rash Verified 07/25/23 13:53 ciprofloxacin (From Cipro) Allergy peeling of Verified 07/25/23 13:53 hands and feet latex Allergy ALGY-Rash Verified 07/25/23 13:53 silver (From Tegaderm AG Allergy Unknown Verified 08/27/24 10:55 Mesh) sulfamethoxazole (From Allergy doesn't Verified 07/25/23 13:53 Bactrim) work trimethoprim (From Bactrim) Allergy doesn't Verified 07/25/23 13:53 work PFSH ED PFSH: Medical History Lymphoma Diabetes History of endometrial cancer DJD (degenerative joint disease) Chronic kidney disease Chronic UTI Hypertension Anemia History of nonmelanoma skin cancer Hodgkin lymphoma Thyroid disease Arthritis Surgical History History of cholecystectomy H/O: hysterectomy Family History Mother Diabetes Other Cancer Social History Smoking and tobacco/nicotine status: former use of tobacco/nicotine Quit status (tobacco/nicotine): has quit using Year quit tobacco: 1979 Former quit date comment: 0.5ppd X 1 year Alcohol intake: never NIH stroke score Score: Total Score: 0 Course Vital Signs: Vital signs: Vital Signs Temperature 98.2 F 09/20/24 13:08 Pulse Rate 60 09/20/24 13:08 Respiratory Rate 18 09/20/24 13:08 Blood Pressure 158/73 09/20/24 13:08 Pulse Oximetry 96 09/20/24 13:08 Oxygen Delivery Me thod Room Air 09/20/24 13:08 MDM - Neuro Symptoms/Deficit Medical Decision Making Patient is NIH score is a 0. She is hypertensive here she is quite anxious. She is out of window for tPA treatment, as her last known well was sometime around 11 PM last night. Took patient over from Dr. Remy presented here with some tingling that has since resolved family states she has had confusion since Saturday does have acute kidney injury with elevated creatinine and UTI spoke to hospitalist will admit. Lab Data 09/20/24 05:22 09/20/24 05:22 Radiology Impressions Chest X-Ray 09/20/24 05:14 IMPRESSION: Cardiomegaly. No acute process Head CT 09/20/24 05:14 IMPRESSION: No acute intracranial abnormality. ASSESSMENT: ASPECTS ([place] Stroke Program Early CT Score) is 10. ADDENDUM: 09/20/24 0558 THIS REPORT CONTAINS FINDINGS THAT MAY BE CRITICAL TO PATIENT CARE. The findings were verbally communicated via telephone conference with MANUEL REMY at 5:56 AM CDT on 09/20/2024. The findings were acknowledged and understood. Laboratory Results WBC 9.95 10^3/uL (3.29-11.43) 09/20/24 05:22 RBC 3.47 10^6/uL (3.85-5.65) L 09/20/24 05:22 Hgb 9.80 g/dL (11.27-16.99) L 09/20/24 05:22 Hct 32.2 % (36-47) L 09/20/24 05:22 MCV 92.8 fl (85-98) 09/20/24 05:22 MCH 28.2 pg (27-33) 09/20/24 05:22 MCHC 30.4 g/dL (30-55) 09/20/24 05:22 RDW 13.7 % (12.1-15.1) 09/20/24 05:22 Plt Count 130 10^3/cmm (157-399) L 09/20/24 05:22 MPV 11.9 fL (7.4-10.4) H 09/20/24 05:22 Neut % (Auto) 30.8 % 09/20/24 05:22 Lymph % (Auto) 46.2 % 09/20/24 05:22 [place] % (Auto) 21.8 % 09/20/24 05:22 Eos % (Auto) 0.7 % 09/20/24 05:22 Baso % (Auto) 0.2 % 09/20/24 05:22 Neut # (Auto) 3.06 10^3/uL (1.8-7.7) 09/20/24 05:22 Lymph # (Auto) 4.6 10^3/uL (0.8-4.8) 09/20/24 05:22 [place] # (Auto) 2.2 10^3/uL (0.2-0.9) H 09/20/24 05:22 Eos # (Auto) 0.1 10^3/uL (0.0-0.8) 09/20/24 05:22 Baso # (Auto) 0.0 10^3/uL (0.0-0.1) 09/20/24 05:22 Nucleated RBC % (auto) 0 % 09/20/24 05:22 Nucleated RBCs # 0.0 /100WBC 09/20/24 05:22 PT 13.60 SECONDS (12.1-14.9) 09/20/24 05:22 INR 0.97 (0.8-1.2) 09/20/24 05:22 APTT 26.2 SECONDS (23.9-36.7) 09/20/24 05:22 Sodium 136 mmol/L (136-145) 09/20/24 05:22 Potassium 5.1 mmol/L (3.5-5.1) 09/20/24 05:22 Chloride 106 mmol/L (98-107) 09/20/24 05:22 Carbon Dioxide 19 mmol/L (22-29) L 09/20/24 05:22 Anion Gap 16.1 (5-19) 09/20/24 05:22 BUN 37 mg/dL (8-23) H 09/20/24 05:22 Creatinine 2.3 mg/dL (0.5-0.9) H 09/20/24 05:22 GFR Calculation Not Reportable 09/20/24 05:22 Glucose 122 mg/dL (65-115) H 09/20/24 05:22 Calculated Osmolality 292 mOsm/kg (285-295) 09/20/24 05:22 Calcium 8.8 mg/dL (8.5-10.5) 09/20/24 05:22 Total Bilirubin 0.3 mg/dL (0.15-1.2) 09/20/24 05:22 AST 14 U/L (0-32) 09/20/24 05:22 ALT 12 U/L (0-33) 09/20/24 05:22 Alkaline Phosphatase 102 U/L (35-105) 09/20/24 05:22 Total Protein 8.2 g/dL (6.6-8.7) 09/20/24 05:22 Albumin 3.6 g/dL (3.5-5.2) 09/20/24 05:22 Globulin 4.6 g/dL (1.3-4.6) 09/20/24 05:22 Urine Color Yellow (Yellow) 09/20/24 06:37 Urine Appearance Cloudy (CLEAR) A 09/20/24 06:37 Urine pH 7.5 (5-7) 09/20/24 06:37 Ur Specific [place] 1.012 (1.005-1.030) 09/20/24 06:37 Urine Protein 1+ (Negative) A 09/20/24 06:37 Urine Glucose (UA) Negative (Normal) 09/20/24 06:37 Urine Ketones Negative (Negative) 09/20/24 06:37 Urine Blood 2+ (Negative) A 09/20/24 06:37 Urine Nitrate Negative (Negative) 09/20/24 06:37 Urine Bilirubin Negative (Negative) 09/20/24 06:37 Urine Urobilinogen 0.2 mg/dL (Negative) 09/20/24 06:37 Ur Leukocyte Esterase 3+ (Negative) A 09/20/24 06:37 Urine RBC >100 /hpf (0-2) H 09/20/24 06:37 Urine WBC >100 /hpf (0-5) H 09/20/24 06:37 Ur Squamous Epith Cells 0-5 /hpf (0-5) 09/20/24 06:37 Amorphous Sediment Not Reportable 09/20/24 06:37 Urine Bacteria Trace /hpf (NONE) 09/20/24 06:37 Hyaline Casts 6.20 /lpf 09/20/24 06:37 Urine Opiates Screen Negative ng/mL (Negative) 09/20/24 06:37 Ur Barbiturates Screen Negative ng/mL (Negative) 09/20/24 06:37 Ur Phencyclidine Scrn Negative ng/mL (Negative) 09/20/24 06:37 Ur Amphetamines Screen Negative ng/mL (Negative) 09/20/24 06:37 U Benzodiazepines Scrn Positive ng/mL (Negative) H 09/20/24 06:37 Urine Cocaine Screen Negative ng/mL (Negative) 09/20/24 06:37 U Marijuana (THC) Screen Negative ng/mL (Negative) 09/20/24 06:37 All radiology interpretation(s) finalized by discharge Discharge Plan Discharge Patient Disposition: Placed in Observation Admit Provider: Agatha Duron Clinical Impression: Acute cystitis, Altered mental status, DENNISE (acute kidney injury) Coding Level of Care Code ED Hand Box Coverer for Mykel Vitale
[2024-09-20 05:31] LABS: Hematocrit 32.2 % (36-47); Hemoglobin 9.80 g/dL (11.27-16.99); Mean Corpuscular HGB Conc 30.4 g/dL (30-55); Mean Corpuscular Hemoglobin 28.2 pg (27-33); Mean Corpuscular Volume 92.8 fl (85-98); Nucleated Red Blood Cells % 0 %; Platelet Count 130 10^3/cmm (157-399); Red Blood Count 3.47 10^6/uL (3.85-5.65); White Blood Count 9.95 10^3/uL (3.29-11.43)
[2024-09-20 05:42] LABS: INR 0.97 (0.8-1.2); Partial Thromboplastin Time 26.2 SECONDS (23.9-36.7); Prothrombin Time 13.60 SECONDS (12.1-14.9)
[2024-09-20 05:46] LABS: Alanine Aminotransferase 12 U/L (0-33); Albumin Level 3.6 g/dL (3.5-5.2); Alkaline Phosphatase 102 U/L (35-105); Anion Gap 16.1 (5-19); Aspartate Amino Transferase 14 U/L (0-32); Blood Urea Nitrogen 37 mg/dL (8-23); Calcium 8.8 mg/dL (8.5-10.5); Carbon Dioxide 19 mmol/L (22-29); Chloride 106 mmol/L (98-107); Creatinine Clr Calc Pharmacy 24.4619; Globulin 4.6 g/dL (1.3-4.6); Glucose 122 mg/dL (65-115); Osmolality Calculated 292 mOsm/kg (285-295); Potassium 5.1 mmol/L (3.5-5.1); Sodium 136 mmol/L (136-145); Total Protein 8.2 g/dL (6.6-8.7)
[2024-09-20 07:26] LABS: PCP Screen Urine Negative (Negative)
[2024-09-20 07:53] LABS: Glucose Urine UA Negative (Normal); Nitrate Urine Negative (Negative); Specific Gravity, Urine 1.012 (1.005-1.030)
[2024-09-20 07:55] LABS: Add Urine Microscopic? YES
[2024-09-20] MEDS: cefTRIAXone 1,000 mg SDV 1000 MG IVP (09:30)
--- OUTSIDE RECORDS SUMMARY | 2024-09-20 12:08 | XMS_ITS | Encounter Summary ---
Author Organization [email or web address] [facility] Address [address] [place] [address] Care Team Providers Care Commercial Sales Specialist Name Role Phone Unavailable Primary Care Provider Unavailabl e Encounter Details Date Type Department Care Team (Latest Contact Info) Description 08/14/1999 Outpatient Historical [facility] ChaseScooby edwards Akin NO ADDRESS ON [...] on file Legal Sex Female 4:00 AM FITTER'S ASSISTANT Gender Identity Not on file Sexual Orientation [...]
--- OUTSIDE RECORDS SUMMARY | 2024-09-20 12:08 | XMS_ITS | Encounter Summary ---
Author Organization [employer] [facility] Address [address] [place] [address] Care Team Providers Care Certified Pharmacy Tech Name Role Phone Unavailable Primary Care Provider Unavailabl e Encounter Details Date Type Department Care Team (Latest Contact Info) Description 06/28/2000 Outpatient Historical [facility] Chasegrace Scooby H NO ADDRESS ON [...] on file Legal Sex Female 4:00 AM SHOP AND ALTERATION TAILOR Gender Identity Not on file Sexual Orientation [...]
--- OUTSIDE RECORDS SUMMARY | 2024-09-20 12:08 | XMS_ITS | Encounter Summary ---
Author Organization [employer] [facility] Address [address] [place] [address] Care Team Providers Care Field Artillery Targeting Technician Name Role Phone Unavailable Primary Care Provider Unavailabl e Encounter Details Date Type Department Care Team (Latest Contact Info) Description 10/02/2000 Outpatient Historical [facility] Chasegrace Scooby H NO ADDRESS ON FILE Type II or unspecified type diabetes mellitus without mention of complication, not stated as uncontrolled (Primary Dx) Social History Tobacco Use Types Packs/Day Years Used Date Smoking Tobacco: Never Assessed Comments Unknown Sex and Gender Information Value Date Recorded Sex Assigned at Not on file Legal Sex Female 4:00 AM CHICKEN FANCIER Gender Identity Not on file Sexual Orientation Not on file documented as of this encounter Plan of Treatment Not on file documented as of this encounter Visit Diagnoses Diagnosis Type II or unspecified type diabetes mellitus without mention of complication, not stated as uncontrolled- Primary documented in this encounter
--- OUTSIDE RECORDS SUMMARY | 2024-09-20 12:08 | XMS_ITS | Encounter Summary ---
Author Organization [employer] [facility] Address [address] [place] [address] Care Team Providers Care Medical And Health Services Manager Name Role Phone Unavailable Primary Care Provider Unavailabl e Encounter Details Date Type Department Care Team (Latest Contact Info) Description 10/13/1999 Outpatient Historical [facility] Chasegrace Scooby H NO ADDRESS ON [...] on file Legal Sex Female 4:00 AM DRYWALL STRIPPER Gender Identity Not on file Sexual Orientation [...]
--- OUTSIDE RECORDS SUMMARY | 2024-09-20 12:08 | XMS_ITS | Encounter Summary ---
Author Organization [employer] [facility] Address [address] [place] [address] Care Team Providers Care Pump Stitcher Name Role Phone Unavailable Primary Care Provider Unavailabl e Encounter Details Date Type Department Care Team (Latest Contact Info) Description 07/21/1999 Outpatient Historical [facility] Scooby Desai NO ADDRESS ON FILE Other abnormal clinical finding (Primary Dx) Social History Tobacco Use Types Packs/Day Years Used Date Smoking Tobacco: Never Assessed Comments Unknown Sex and Gender Information Value Date Recorded Sex Assigned at Not on file Legal Sex Female 4:00 AM DIRECTOR MARKETING Gender Identity Not on file Sexual Orientation Not on file documented as of this encounter Plan of Treatment Not on file documented as of this encounter Visit Diagnoses Diagnosis Other abnormal clinical finding- Primary documented in this encounter
--- OUTSIDE RECORDS SUMMARY | 2024-09-20 12:08 | XMS_ITS | Encounter Summary ---
Author Organization [employer] [facility] Address [address] [place] [address] Care Team Providers Care Public Relations Account Supervisor Name Role Phone Unavailable Primary Care Provider Unavailabl e Encounter Details Date Type Department Care Team (Latest Contact Info) Description 10/22/2000 Outpatient Historical [facility] Chasegrace Scooby H NO ADDRESS ON FILE Gynecologic examination (Primary Dx); Screening for malignant neoplasm of the cervix; Need for prophylactic hormone replacement therapy (postmenopausal); Screening for nephropathy Social History Tobacco Use Types Packs/Day Years Used Date Smoking Tobacco: Never Assessed Comments Unknown Sex and Gender Information Value Date Recorded Sex Assigned at Not on file Legal Sex Female 4:00 AM CARBIDE POWDER PROCESSOR Gender Identity Not on file Sexual Orientation Not on file documented as of this encounter Plan of Treatment Not on file documented as of this encounter Visit Diagnoses Diagnosis Gynecologic examination- Primary Gynecological examination Screening for malignant neoplasm of the cervix Need for prophylactic hormone replacement therapy (postmenopausal) Screening for nephropathy documented in this encounter
--- OUTSIDE RECORDS SUMMARY | 2024-09-20 12:08 | XMS_ITS | Encounter Summary ---
Author Organization [employer] [facility] Address [address] [place] [address] Care Team Providers Care Bakery Assistant Name Role Phone Unavailable Primary Care Provider Unavailabl e Encounter Details Date Type Department Care Team (Latest Contact Info) Description 04/12/2000 Outpatient Historical [facility] ChaseScooby edwards Akin NO ADDRESS ON [...] on file Legal Sex Female 4:00 AM TECHNICAL SERVICES REP Gender Identity Not on file Sexual Orientation [...]
--- OUTSIDE RECORDS SUMMARY | 2024-09-20 12:08 | XMS_ITS | Encounter Summary ---
Author Organization [employer] [facility] Address [address] [place] [address] Care Team Providers Care Seismograph Chief Name Role Phone Unavailable Primary Care Provider Unavailabl e Encounter Details Date Type Department Care Team (Latest Contact Info) Description 01/12/2000 Outpatient Historical [facility] ChaseScooby edwards Akin NO ADDRESS ON FILE Type II or unspecified type diabetes mellitus without mention of complication, not stated as uncontrolled (Primary Dx); Lumbago Social History Tobacco Use Types Packs/Day Years Used Date Smoking Tobacco: Never Assessed Comments Unknown Sex and Gender Information Value Date Recorded Sex Assigned at Not on file Legal Sex Female 4:00 AM SURFACE SUPERVISOR Gender Identity Not on file Sexual Orientation Not on file documented as of this encounter Plan of Treatment Not on file documented as of this encounter Visit Diagnoses Diagnosis Type II or unspecified type diabetes mellitus without mention of complication, not stated as uncontrolled- Primary Lumbago documented in this encounter
--- OUTSIDE RECORDS SUMMARY | 2024-09-20 12:08 | XMS_ITS | Encounter Summary ---
Author Organization [id number] [facility] Address [address] [place] [address] Care Team Providers Care Inventory Specialist Name Role Phone Unavailable Primary Care Provider Unavailabl e Encounter Details Date Type Department Care Team (Latest Contact Info) Description 12/23/[address]patient [address] [facility] Chaitanya Hernandez Jr., MD [address] [place] [id number] Type II or unspecified type diabetes mellitus without mention of complication, not stated as uncontrolled (Primary Dx); Unspecified hypothyroidism; Need for prophylactic hormone replacement therapy (postmenopausal) Social History Tobacco Use Types Packs/Day Years Used Date Smoking Tobacco: Never Assessed Comments Unknown Sex and Gender Information Value Date Recorded Sex Assigned at Not on file Legal Sex Female 4:00 AM FITNESS PROFESSIONAL Gender Identity Not on file Sexual Orientation [...]
--- OUTSIDE RECORDS SUMMARY | 2024-09-20 12:08 | XMS_ITS | Encounter Summary ---
Author Organization [facility] Address [address] [place] [address] Care Team Providers Care Gang Tailer Name Role Phone Unavailable Primary Care Provider Unavailabl e Encounter Details Date Type Department Care Team (Latest Contact Info) Description 01/21/2001 Outpatient Historical [facility] Chaitanya Hernandez Jr., MD [address] [place] [address] VACCINE FOR INFLUENZA (Primary Dx) Social History Tobacco Use Types Packs/Day Years Used Date Smoking Tobacco: Never Assessed Comments Unknown Sex and Gender Information Value Date Recorded Sex Assigned at Not on file 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
--- OUTSIDE RECORDS SUMMARY | 2024-09-20 12:08 | XMS_ITS | Encounter Summary ---
Author Organization [facility] [facility] Address [address] [place] [address] Care Team Providers Care Hand Woven Carpet And Rug Mender Name Role Phone Unavailable Primary Care Provider Unavailabl e Encounter Details Date Type Department Care Team (Latest Contact Info) Description 07/12/1999 Outpatient Historical [facility] Giselle Scooby H NO ADDRESS ON FILE Other specified menopausal and postmenopausal disorder (Primary Dx); Acute pharyngitis; Family history of diabetes mellitus; Personal history of malignant neoplasm of thyroid Social History Tobacco Use Types Packs/Day Years Used Date Smoking Tobacco: Never Assessed Comments Unknown Sex and Gender Information Value Date Recorded Sex Assigned at Not on file 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
--- OUTSIDE RECORDS SUMMARY | 2024-09-20 12:08 | XMS_ITS | Encounter Summary ---
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
--- OUTSIDE RECORDS SUMMARY | 2024-09-20 12:08 | XMS_ITS | Encounter Summary ---
Author Organization [employer] [facility] Address [address] [place] [address] Care Team Providers Care Securities Attorney Name Role Phone Unavailable Primary Care Provider Unavailabl e Encounter Details Date Type Department Care Team (Latest Contact Info) Description 08/25/1999 Outpatient Historical [facility] ChaseScooby edwards Akin NO ADDRESS ON FILE Type II or unspecified type diabetes mellitus without mention of complication, not stated as uncontrolled (Primary Dx) Social History Tobacco Use Types Packs/Day Years Used Date Smoking Tobacco: Never Assessed Comments Unknown Sex and Gender Information Value Date Recorded Sex Assigned at Not on file 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
--- OUTSIDE RECORDS SUMMARY | 2024-09-20 12:08 | XMS_ITS | Clinical Summary ---
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
--- OUTSIDE RECORDS SUMMARY | 2024-09-20 12:08 | XMS_ITS | Encounter Summary ---
Author Organization [facility] Address [address] [place] [address] Care Team Providers Care Workforce Planning Analyst Name Role Phone Unavailable Primary Care Provider Unavailabl e Encounter Details Date Type Department Care Team (Latest Contact Info) Description 08/26/2000 Outpatient Historical [facility] Scooby Desai NO ADDRESS ON FILE Unspecified disorder of skin and subcutaneous tissue (Primary Dx) Social History Tobacco Use Types Packs/Day Years Used Date Smoking Tobacco: Never Assessed Comments Unknown Sex and Gender Information Value Date Recorded Sex Assigned at Not on file 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
--- OUTSIDE RECORDS SUMMARY | 2024-09-20 12:08 | XMS_ITS | Clinical Summary ---
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
--- OUTSIDE RECORDS SUMMARY | 2024-09-20 12:08 | XMS_ITS | Encounter Summary ---
Author Organization [employer] [facility] Address [address] [place] [address] Care Team Providers Care Screw Machine Operator Name Role Phone Unavailable Primary Care Provider Unavailabl e Encounter Details Date Type Department Care Team (Latest Contact Info) Description 07/01/2000 Outpatient Historical [facility] Chasegrace Scooby H NO ADDRESS ON FILE Type II or unspecified type diabetes mellitus without mention of complication, not stated as uncontrolled (Primary Dx); Unspecified hypothyroidism Social History Tobacco Use Types Packs/Day Years Used Date Smoking Tobacco: Never Assessed Comments Unknown Sex and Gender Information Value Date Recorded Sex Assigned at Not on file Legal Sex Female 4: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
--- NOTE | 2024-09-20 12:45 | PC.SOCIAL ---
Patient lives alone in a small house. Has Daughter nearby that assists with patient and is going to move patient in with her when she gets a house here. The daughter recently moved back from [place]. The patient has a seated walker and has a cpap machine from [facility]. However, [facility] did not do the settings and the patient has been fighting with Dr. Louis's office to get this taken care of over the last 2 years. She had a sleep study done here in 2022. Patient would like this taken care of this hospital stay.
--- NOTE | 2024-09-20 15:07 | CTR_ITS ---
PROCEDURE INFORMATION: Exam: CT Abdomen And Pelvis Without Contrast Exam date and time: 09/20/2024 3:33 PM Age: 69 years old Clinical indication: Abdominal tenderness; Additional info: Assess for stent occlusion, ureteric stent in place, now with UTI, please assess for TECHNIQUE: Imaging protocol: Computed tomography of the abdomen and pelvis without contrast. Radiation optimization: All CT scans at this facility use at least one of these dose optimization techniques: automated exposure control; mA and/or kV adjustment per patient size (includes targeted exams where dose is matched to clinical indication); or iterative reconstruction. COMPARISON: CT abdomen pelvis wo con [id number] 05/21/2024 9:45 AM RADIATION DOSE METRICS: Total DLP (mGy-cm): 1086.87 FINDINGS: Diaphragm: There is a small hiatal hernia. Liver: Normal. No mass. Gallbladder and biliary ducts: Status post cholecystectomy. Pancreas: Normal. No ductal dilation. Spleen: Normal. No splenomegaly. Adrenal glands: Normal. No mass. Kidneys and ureters: Bilateral ureteral stents are again noted. Mild left hydronephrosis and bilateral hydroureter without appreciable change. Multiple right renal stones are again seen, the largest in the renal pelvis. Renal pelvic calculus measures 1.9 x 1.6 cm without change. Stomach and bowel: Unremarkable. No obstruction. No mucosal thickening. Appendix: No evidence of appendicitis. Intraperitoneal space: There is increased stranding of the mesenteric fat. No free air. No significant fluid collection. Abnormal soft tissue in the central mesentery is again seen measuring a proximally 4.9 x 3.4 cm. Small mesenteric nodes are again noted. Vasculature: Unremarkable. No abdominal aortic aneurysm. Lymph nodes: Shotty retroperitoneal lymph nodes are seen measuring less than 1 cm in short axis. Urinary bladder: Unremarkable as visualized. Reproductive: The uterus is surgically absent. Bones/joints: There is sclerosis in the S1 body of the sacrum without definite change. Soft tissues: Unremarkable. CT/CT kidney stone [id number] IMPRESSION: 1. Increased stranding of the fat in the mesentery with 4.9 x 3.4 cm soft tissue in the mesentery. Differential diagnosis includes mesenteric neoplasm such as carcinoid (though no calcification is seen) and mesenteric adenitis/panniculitis. Recommend short-term follow-up CT. 2. Multiple right renal stones are again seen. Bilateral ureteral stents. Mild left hydronephrosis is stable. 3. Stable sclerosis of the S1 body.
--- NOTE | 2024-09-20 15:52 | PM.HP ---
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 Patient states that she has baseline right-sided residual illness, however at 4 AM today she woke up and found her right side to be significantly weaker. She states that her hand was incoordinated. Her daughter reports that over the past week she has had episodes of involuntary spasms of the right hand and leg. Daughter also notes that her droop appears to be worse today compared to previously. Daughter notes that patient has been increasingly irritable and intermittently confused over the past 2 to 3 days wherein she would forget the name of her medications and has forgotten days of week. At the time of my assessment patient is awake alert and oriented x 3. CT of the head was performed in the emergency room which did not show any acute intracranial abnormality. Review of Systems General: Reports: 10 or more systems reviewed and unremarkable except in HPI and below Const: Denies: fever(s), chills or body aches Eyes: Denies: change in vision, blurry vision or photophobia ENMT: Reports: hoarseness; Denies: throat pain, enlarged tonsils, odynophagia or nasal congestion Card: Denies: chest pain, palpitations, irregular heart rhythm, edema, swelling of feet/ankles, lightheadedness, pre-syncope, dyspnea on exertion or orthopnea Resp: Denies: dyspnea, productive cough, non-productive cough, wheezing, stridor, pain on inspiration, change in phlegm color, hemoptysis or chest congestion GI: Denies: abdominal pain, nausea, vomiting, hematemesis, coffee ground emesis, dysphagia, heartburn, diarrhea, constipation, GI cramping, change in stool character, hematochezia or melena : Denies: flank pain, difficulty voiding, dysuria, urinary frequency, urinary urgency, urinary hesitancy or hematuria Musc: Denies: neck pain, back pain, extremity pain, joint swelling, joint warmth or deformity Neuro: Denies: headache(s), numbness in extremities, weakness in extremities, sensory changes, difficulty walking, frequent falls, dizziness, vertigo, behavioral changes, Slurred speech present or seizure-like activity Psych: Denies: anxiety, depression, suicidal ideation or homicidal ideation Endo: Denies: polyuria, polydipsia, tired all the time, cold intolerance or hot flashes Nito/Lymph: Denies: easy bruising or easy bleeding Medications/Allergies Home Medications ?Medication ?Instructions ?Recorded ?Confirmed ?Last Taken ?Type glyburide 2.5 mg tablet 2.5 mg PO BID 09/05/20 09/20/24 09/19/24 History metoprolol succinate 50 mg 50 mg PO DAILY 04/30/22 09/20/24 09/19/24 History tablet,extended release 24 hr tamsulosin 0.4 mg capsule 0.4 mg PO DAILY 04/30/22 09/20/24 09/19/24 History Diabetic shoes and 3 pairs of #1 ea 05/04/22 09/20/24 Unknown Rx inserts aspirin 81 mg tablet,delayed 81 mg PO DAILY #30 tabs 04/13/23 09/20/24 06/26/24 Rx release (Adult Aspirin Regimen) atorvastatin 40 mg tablet 40 mg PO BEDTIME #30 tabs 04/13/23 09/20/24 09/19/24 Rx acidophilus 100 million 1 cap PO DAILY 06/27/24 09/20/24 09/19/24 History cell-pectin, citrus 10 mg capsule cefdinir 300 mg capsule See Rx Instructions .Route .COMPLEX 06/27/24 09/20/24 09/18/24 History ferrous sulfate 325 mg (65 mg 325 mg PO DAILY 06/27/24 09/20/24 06/26/24 History iron) tablet (Iron (ferrous sulfate)) levothyroxine 88 mcg tablet 88 mcg PO QAM 06/27/24 09/20/24 09/19/24 History hydralazine 25 mg tablet 25 mg PO BID 09/20/24 09/20/24 09/19/24 History Allergies Allergy/AdvReac Type Severity Reaction Status Date / Time adhesive tape Allergy rash Verified 07/25/23 13:53 ciprofloxacin (From Cipro) Allergy peeling of Verified 07/25/23 13:53 hands and feet latex Allergy ALGY-Rash Verified 07/25/23 13:53 silver (From Tegaderm AG Allergy Unknown Verified 08/27/24 10:55 Mesh) sulfamethoxazole (From Allergy doesn't Verified 07/25/23 13:53 Bactrim) work trimethoprim (From Bactrim) Allergy doesn't Verified 07/25/23 13:53 work PFSH Acute PFSH: Medical History Lymphoma Diabetes History of endometrial cancer DJD (degenerative joint disease) Chronic kidney disease Chronic UTI Hypertension Anemia History of nonmelanoma skin cancer Hodgkin lymphoma Thyroid disease Arthritis Surgical History History of cholecystectomy H/O: hysterectomy Family History Mother Diabetes Other Cancer Social History Smoking and tobacco/nicotine status: former use of tobacco/nicotine Quit status (tobacco/nicotine): has quit using Year quit tobacco: 1979 Former quit date comment: 0.5ppd X 1 year Alcohol intake: never Vitals/I&O/Wt Last Vital Signs Temp 98.2 F 09/20/24 13:08 Pulse 60 09/20/24 13:08 Resp 18 09/20/24 13:08 BP 158/73 09/20/24 13:08 Pulse Ox 96 09/20/24 13:08 O2 Del Method Room Air 09/20/24 13:08 Weight last 48 hrs Weight 97.522 kg Weight 97.522 kg Physical Exam Narrative: General: No acute distress, AO x3 HEENT: PERRLA, pupils bilaterally equal and reactive, pallors not present Chest: Normal vesicular breath sounds, no added sounds, equal good air entry bilaterally CVS: S1-S2 regular, no murmurs, no tachycardia, no gallops, no rubs Abdomen: Soft, nontender, no organomegaly, bowel sounds present Neuro: No focal deficits, no facial deformity, AO x3, power 5/5 in all limbs Data 09/20/24 05:22 09/20/24 05:22 Other data: Radiology Impressions Chest X-Ray 09/20/24 05:14 IMPRESSION: Cardiomegaly. No acute process Head CT 09/20/24 05:14 IMPRESSION: No acute intracranial abnormality. ASSESSMENT: ASPECTS ([place] Stroke Program Early CT Score) is 10. ADDENDUM: 09/20/24 0558 THIS REPORT CONTAINS FINDINGS THAT MAY BE CRITICAL TO PATIENT CARE. The findings were verbally communicated via telephone conference with RENETTA REMY at 5:56 AM CDT on 09/20/2024. The findings were acknowledged and understood. Laboratory Results WBC 9.95 10^3/uL (3.29-11.43) 09/20/24 05:22 RBC 3.47 10^6/uL (3.85-5.65) L 09/20/24 05:22 Hgb 9.80 g/dL (11.27-16.99) L 09/20/24 05:22 Hct 32.2 % (36-47) L 09/20/24 05:22 MCV 92.8 fl (85-98) 09/20/24 05:22 MCH 28.2 pg (27-33) 09/20/24 05:22 MCHC 30.4 g/dL (30-55) 09/20/24 05:22 RDW 13.7 % (12.1-15.1) 09/20/24 05:22 Plt Count 130 10^3/cmm (157-399) L 09/20/24 05:22 MPV 11.9 fL (7.4-10.4) H 09/20/24 05:22 Neut % (Auto) 30.8 % 09/20/24 05:22 Lymph % (Auto) 46.2 % 09/20/24 05:22 Donley % (Auto) 21.8 % 09/20/24 05:22 Eos % (Auto) 0.7 % 09/20/24 05:22 Baso % (Auto) 0.2 % 09/20/24 05:22 Neut # (Auto) 3.06 10^3/uL (1.8-7.7) 09/20/24 05:22 Lymph # (Auto) 4.6 10^3/uL (0.8-4.8) 09/20/24 05:22 Donley # (Auto) 2.2 10^3/uL (0.2-0.9) H 09/20/24 05:22 Eos # (Auto) 0.1 10^3/uL (0.0-0.8) 09/20/24 05:22 Baso # (Auto) 0.0 10^3/uL (0.0-0.1) 09/20/24 05:22 Nucleated RBC % (auto) 0 % 09/20/24 05:22 Nucleated RBCs # 0.0 /100WBC 09/20/24 05:22 PT 13.60 SECONDS (12.1-14.9) 09/20/24 05:22 INR 0.97 (0.8-1.2) 09/20/24 05:22 APTT 26.2 SECONDS (23.9-36.7) 09/20/24 05:22 Sodium 136 mmol/L (136-145) 09/20/24 05:22 Potassium 5.1 mmol/L (3.5-5.1) 09/20/24 05:22 Chloride 106 mmol/L (98-107) 09/20/24 05:22 Carbon Dioxide 19 mmol/L (22-29) L 09/20/24 05:22 Anion Gap 16.1 (5-19) 09/20/24 05:22 BUN 37 mg/dL (8-23) H 09/20/24 05:22 Creatinine 2.3 mg/dL (0.5-0.9) H 09/20/24 05:22 GFR Calculation Not Reportable 09/20/24 05:22 Glucose 122 mg/dL (65-115) H 09/20/24 05:22 POC Glucose 85 mg/dL (70-110) 09/20/24 16:47 Calculated Osmolality 292 mOsm/kg (285-295) 09/20/24 05:22 Calcium 8.8 mg/dL (8.5-10.5) 09/20/24 05:22 Total Bilirubin 0.3 mg/dL (0.15-1.2) 09/20/24 05:22 AST 14 U/L (0-32) 09/20/24 05:22 ALT 12 U/L (0-33) 09/20/24 05:22 Alkaline Phosphatase 102 U/L (35-105) 09/20/24 05:22 Total Protein 8.2 g/dL (6.6-8.7) 09/20/24 05:22 Albumin 3.6 g/dL (3.5-5.2) 09/20/24 05:22 Globulin 4.6 g/dL (1.3-4.6) 09/20/24 05:22 Urine Color Yellow (Yellow) 09/20/24 06:37 Urine Appearance Cloudy (CLEAR) A 09/20/24 06:37 Urine pH 7.5 (5-7) 09/20/24 06:37 Ur Specific [place] 1.012 (1.005-1.030) 09/20/24 06:37 Urine Protein 1+ (Negative) A 09/20/24 06:37 Urine Glucose (UA) Negative (Normal) 09/20/24 06:37 Urine Ketones Negative (Negative) 09/20/24 06:37 Urine Blood 2+ (Negative) A 09/20/24 06:37 Urine Nitrate Negative (Negative) 09/20/24 06:37 Urine Bilirubin Negative (Negative) 09/20/24 06:37 Urine Urobilinogen 0.2 mg/dL (Negative) 09/20/24 06:37 Ur Leukocyte Esterase 3+ (Negative) A 09/20/24 06:37 Urine RBC >100 /hpf (0-2) H 09/20/24 06:37 Urine WBC >100 /hpf (0-5) H 09/20/24 06:37 Ur Squamous Epith Cells 0-5 /hpf (0-5) 09/20/24 06:37 Amorphous Sediment Not Reportable 09/20/24 06:37 Urine Bacteria Trace /hpf (NONE) 09/20/24 06:37 Hyaline Casts 6.20 /lpf 09/20/24 06:37 Urine Opiates Screen Negative ng/mL (Negative) 09/20/24 06:37 Ur Barbiturates Screen Negative ng/mL (Negative) 09/20/24 06:37 Ur Phencyclidine Scrn Negative ng/mL (Negative) 09/20/24 06:37 Ur Amphetamines Screen Negative ng/mL (Negative) 09/20/24 06:37 U Benzodiazepines Scrn Positive ng/mL (Negative) H 09/20/24 06:37 Urine Cocaine Screen Negative ng/mL (Negative) 09/20/24 06:37 U Marijuana (THC) Screen Negative ng/mL (Negative) 09/20/24 06:37 A&P Assessment and plan (1) Complicated UTI (urinary tract infection): 69-year-old lady with past medical history is notable above, history of recent CVA in April 2024, residual right-sided hemiparesis presenting to the hospital with right-sided weakness. Patient states that the weakness has improved and is now back at baseline. She may potentially have had a TIA. She has been off aspirin for the past week as she has a stent exchange procedure at [facility] on Saturday. Concerned that with the history of ureteric stents, creatinine today at 2.3, history of being on chronic suppression with cefdinir, possibility of obstructing pyelonephritis is not excluded at this time. Will obtain CT of the abdomen and pelvis to assess for any hydronephrosis, stent occlusion which would warrant an urgent urological consultation. Patient is typically on prophylaxis with cefdinir, daughter reports that prior urine cultures have grown E. coli. Will start her on ceftriaxone 1 g IV every 24 hours and monitor for improvement. She typically follows with infectious disease at [facility] with Dr. Monge. Established with Dr. Simmons from urology. (2) DENNISE (acute kidney injury): Acute kidney injury creatinine at 2.3. She has received normal saline at 100 cc an hour since admission. Check serial creatinine for improvement. CT abdomen and pelvis as ordered above to assess for any obstructive process which would need urgent urological intervention. (3) Altered mental status: Reported altered mental status and confusion at home. At this time patient is alert awake and oriented. No concerns currently with regards to mentation. CT head is without any acute intracranial events Patient has been off aspirin for the past week due to anticipated procedure on Saturday. Since I have low suspicion of a stroke at this time, we will continue to hold off aspirin in case patient is able to be discharged in time to keep her appointment on Saturday. (4) Leg swelling: Bilateral asymmetric leg swelling. Left greater than right. Ordered ultrasound of the lower extremity to assess for any DVT. Plan DVT prophylaxis: Lovenox 30 mg subcutaneously daily PDMP PDMP Reviewed: Not Reviewed Attestations Medical Necessity Statement*: Greater than 2 midnight stay is anticipated Coding Level of Care Code Acute Code for [facility] Diagnoses Complicated UTI (urinary tract infection) N39.0 DENNISE (acute kidney injury) N17.9 Altered mental status R41.82 Leg swelling M79.89
--- NOTE | 2024-09-20 17:05 | USR_ITS ---
PROCEDURE INFORMATION: Exam: US Duplex Lower Extremity Veins, Bilateral Exam date and time: 09/20/2024 6:50 PM Age: 69 years old Clinical indication: Screening exam; Assess for dvt TECHNIQUE: Imaging protocol: Real-time duplex ultrasound of the bilateral extremities with 2-D maier scale, color Doppler flow and spectral waveform analysis including responses to compression and other maneuvers (when performed) with image documentation. Complete exam focused on the lower extremity veins. COMPARISON: CT kidney stone [id number] 09/20/2024 3:33 PM FINDINGS: Right deep veins: Unremarkable. The common femoral, femoral, proximal profunda femoral and popliteal veins are patent without thrombus. Normal Doppler waveforms. Normal compressibility and/or augmentation response. Left deep veins: Unremarkable. The common femoral, femoral, proximal profunda femoral and popliteal veins are patent without thrombus. Normal Doppler waveforms. Normal compressibility and/or augmentation response. Superficial veins: Greater saphenous veins at the saphenofemoral junctions are patent bilaterally without thrombus. Soft tissues: Unremarkable. US/CV venous duplex [facility] [id number] IMPRESSION: No evidence of deep vein thrombosis.
[2024-09-20] MEDS: piperacillin-tazobactam 3.375 GM in sodium chloride 0.9% (plus) 50 ML IV (19:50)
[2024-09-21] VITALS (14 sets, daily range): BP systolic 124–143; BP diastolic 54–76; PULSE 55–72; RESP 16–19; TEMP 36.4–36.8; O2SAT 92–98
[2024-09-21] MEDS: piperacillin-tazobactam 3.375 GM in sodium chloride 0.9% (plus) 50 ML IV ×3 (02:23→19:23)
[2024-09-21 06:35] LABS: Hematocrit 31.4 % (36-47); Hemoglobin 9.60 g/dL (11.27-16.99); Mean Corpuscular HGB Conc 30.6 g/dL (30-55); Mean Corpuscular Hemoglobin 28.3 pg (27-33); Mean Corpuscular Volume 92.6 fl (85-98); Nucleated Red Blood Cells % 0 %; Platelet Count 117 10^3/cmm (157-399); Red Blood Count 3.39 10^6/uL (3.85-5.65); White Blood Count 7.18 10^3/uL (3.29-11.43)
[2024-09-21 06:55] LABS: Alanine Aminotransferase 9 U/L (0-33); Albumin Level 3.4 g/dL (3.5-5.2); Alkaline Phosphatase 100 U/L (35-105); Anion Gap 15.0 (5-19); Aspartate Amino Transferase 12 U/L (0-32); Blood Urea Nitrogen 33 mg/dL (8-23); Calcium 8.5 mg/dL (8.5-10.5); Carbon Dioxide 17 mmol/L (22-29); Chloride 113 mmol/L (98-107); Creatinine Clr Calc Pharmacy 24.2617; Globulin 4.1 g/dL (1.3-4.6); Glucose 109 mg/dL (65-115); Osmolality Calculated 298 mOsm/kg (285-295); Potassium 5.0 mmol/L (3.5-5.1); Sodium 140 mmol/L (136-145); Total Protein 7.5 g/dL (6.6-8.7)
--- NOTE | 2024-09-21 08:10 | PC.SOCIAL ---
IMM Update Pg. 2 of IMM Updated and reviewed with patient, who verbalized understanding. Copy provided at bedside.
--- NOTE | 2024-09-21 13:05 | PC.NURSE ---
dining room coordinator rounds at 0905- patient sitting in the chair with a few visitors. Gave patient the stroke education book, though stroke may have been ruled out she didn't get one last time.
--- NOTE | 2024-09-21 13:53 | PM.CONSULT ---
Providers/Reason For Consult Consulting Physician/Specialty*: Brian Majano MD/telenephrology Reason for Consult*: Acute kidney injury Requesting Physician: Karen Ozuna MD Attending Physician: Karen Ozuna MD Primary Care Provider: Celia Louis MD History of Present Illness History of Present Illness Macey Brush is a 69 year old female with history of CVA and residual right-sided weakness, intracranial arterial stenosis, history of UTIs bilateral ureteral stents chronic cefdinir prophylaxis. Patient was admitted yesterday with right-sided weakness this concern is UTI however urine culture only grew out 25-30,000 bacteria however she is on home antibiotics. The patient also has diabetes and is on glyburide patient has hypertension and hypothyroidism. The patient has chronic kidney disease baseline creatinine appears to be between 1.3 and 1.6 mg/dL over the last year. In 2022 her creatinine was as low as 1.1 mg/dL. Yesterday the patient was found to be in acute kidney injury with a creatinine of 2.3 mg/dL. The patient was given IV fluids overnight she had a CT scan that revealed: Kidneys and ureters: Bilateral ureteral stents are again noted. Mild left hydronephrosis and bilateral hydroureter without appreciable change. Multiple right renal stones are again seen, the largest in the renal pelvis. Renal pelvic calculus measures 1.9 x 1.6 cm without change. The patient is supposed to get her ureteral stents changed tomorrow renal was called to see the patient as her creatinine remains 2.4 mg/dL. The patient had increased trending of the fat in the mesentery with 4.9 x 3.4 cm soft tissue that could include carcinoid versus adenitis or panniculitis. And she multiple renal stones. Review of Systems Narrative: Weakness headache confusion lethargy altered mental status poor appetite urinary pain diarrhea no chest pain poor vision No hearing changes. Denies abdominal pain. Has chronic edema she says Medications/Allergies Home Medications ?Medication ?Instructions ?Recorded ?Confirmed ?Last Taken ?Type glyburide 2.5 mg tablet 2.5 mg PO BID 09/05/20 09/20/24 09/19/24 History metoprolol succinate 50 mg 50 mg PO DAILY 04/30/22 09/20/24 09/19/24 History tablet,extended release 24 hr tamsulosin 0.4 mg capsule 0.4 mg PO DAILY 04/30/22 09/20/24 09/19/24 History Diabetic shoes and 3 pairs of #1 ea 05/04/22 09/20/24 Unknown Rx inserts aspirin 81 mg tablet,delayed 81 mg PO DAILY #30 tabs 04/13/23 09/20/24 06/26/24 Rx release (Adult Aspirin Regimen) atorvastatin 40 mg tablet 40 mg PO BEDTIME #30 tabs 04/13/23 09/20/24 09/19/24 Rx acidophilus 100 million 1 cap PO DAILY 06/27/24 09/20/24 09/19/24 History cell-pectin, citrus 10 mg capsule cefdinir 300 mg capsule See Rx Instructions .Route .COMPLEX 06/27/24 09/20/24 09/18/24 History ferrous sulfate 325 mg (65 mg 325 mg PO DAILY 06/27/24 09/20/24 06/26/24 History iron) tablet (Iron (ferrous sulfate)) levothyroxine 88 mcg tablet 88 mcg PO QAM 06/27/24 09/20/24 09/19/24 History hydralazine 25 mg tablet 25 mg PO BID 09/20/24 09/20/24 09/19/24 History Allergies Allergy/AdvReac Type Severity Reaction Status Date / Time adhesive tape Allergy rash Verified 07/25/23 13:53 ciprofloxacin (From Cipro) Allergy peeling of Verified 07/25/23 13:53 hands and feet latex Allergy ALGY-Rash Verified 07/25/23 13:53 silver (From Tegaderm AG Allergy Unknown Verified 08/27/24 10:55 Mesh) sulfamethoxazole (From Allergy doesn't Verified 07/25/23 13:53 Bactrim) work trimethoprim (From Bactrim) Allergy doesn't Verified 07/25/23 13:53 work Current Medications Generic Name Dose Route Start Last Admin Trade Name Freq PRN Reason Stop Dose Admin Acetaminophen 650 mg 09/20/24 15:50 09/21/24 05:16 Acetaminophen 325 Mg Tablet PO 650 mg Q6H PRN Administration Mild/Mod Pain Or Temp >/= 101 Enoxaparin Sodium 30 mg 09/20/24 16:00 09/20/24 16:48 Enoxaparin 30 Mg/0.3 Ml Syringe SUBCUT 30 mg Q24H BOB Administration Piperacillin Sod/Tazobactam 50 mls @ 12.5 mls/hr 09/20/24 19:00 09/21/24 10:41 Sod 3.375 gm/ Sodium Chloride IV 12.5 mls/hr Q8H BOB Administration Pantoprazole Sodium 40 mg 09/21/24 09:00 09/21/24 08:[address] 40 Mg Tablet PO 40 mg DAILY BOB Administration PFSH Acute PFSH: Medical History Lymphoma Diabetes History of endometrial cancer DJD (degenerative joint disease) Chronic kidney disease Chronic UTI Hypertension Anemia History of nonmelanoma skin cancer Hodgkin lymphoma Thyroid disease Arthritis Surgical History History of cholecystectomy H/O: hysterectomy Family History Mother Diabetes Other Cancer Social History Smoking and tobacco/nicotine status: former use of tobacco/nicotine Quit status (tobacco/nicotine): has quit using Year quit tobacco: 1979 Former quit date comment: 0.5ppd X 1 year Alcohol intake: never Vitals/I&O/Wt Last Vital Signs Temp 97.7 F 09/21/24 13:00 Pulse 61 09/21/24 13:00 Resp 19 H 09/21/24 13:00 BP 129/54 09/21/24 13:00 Pulse Ox 98 09/21/24 11:03 O2 Del Method Room Air 09/21/24 11:03 FiO2 21 09/20/24 21:00 09/20/24 09/21/24 09/21/24 22:59 06:59 14:59 Intake Total 1360 / 1360 100 / 1460 600 / 600 Output Total 350 / 350 Balance 1360 / 1360 -250 / 1110 600 / 600 Weight last 48 hrs Weight 103.555 kg Weight 97.522 kg Weight 97.522 kg Physical Exam Narrative: Vital signs noted. Patient lying comfortably in bed. HEENT normocephalic atraumatic. Neck is supple Lungs clear to auscultation. Heart is regular Abdomen soft positive bowel sounds nontender. Extremities no edema. Neuro weak awake alert oriented x 2+. Data 09/21/24 06:09 09/21/24 06:09 Micro: Microbiology 09/20/24 06:37 Urine Culture - Preliminary Urine,Clean Catch A&P Assessment and plan (1) DENNISE (acute kidney injury): 69-year-old lady history of hypertension diabetes ureteral stents CVA. Patient here with question of UTI and acute kidney injury. 1. Acute kidney injury- Urinalysis reviewed 1+ protein 2+ blood 3+ leukoesterase greater than 100 RBCs specific gravity of 1012 greater than 100 white cells. This appears to be consistent with an infection. Noted she was on prophylactic antibiotic. We do not have a urine microalbumin or urine electrolytes. Creatinine appears to be stabilizing. I will change her fluids to lactated Ringer's. 2. Hyperchloremic metabolic acidosis non-anion gap likely from acute kidney injury diarrhea and normal saline. Will monitor on lactated Ringer's. 3. Anemia workup as per PMD. 4. Diabetes monitor for hypoglycemia with acute kidney injury. I agree with holding glyburide at this time. Based on patient's repeat chemistries tomorrow hopefully she can be discharged for her ureteral stent change by urology tomorrow afternoon Patient was seen examined using A/V equipment with the aid of a nurse. The patient consented to telehealth visit. Plan see above PDMP PDMP Reviewed: Not Reviewed Consult Attestations Medical Necessity Statement: dennise Time Spent in Patient Care: Greater than 35 minutes (>than 50% of time spent in counselling and/or direct pt care on unit). Coding Level of Care Code Acute Code for [facility] Diagnoses DENNISE (acute kidney injury) N17.9
[2024-09-21 14:42] LABS: Uric Acid 6.8 mg/dL (2.4-5.7)
--- NOTE | 2024-09-21 15:01 | PM.PN ---
Subjective Subjective: Creatinine 2.4 today. Patient asymptomatic feeling well sitting up in chair at this time. Family member at bedside She supposed to go for trickle exchange tomorrow. Discussed patient's care with Dr. Simmons over the phone. He recommended that we continue to treat patient here and recheck creatinine in the morning. In case of any further worsening she may require inpatient transfer for urology services otherwise may have able to discharge home once UTI has been treated to have stent exchange done in next few weeks as an outpatient. Patient is stable at this time. No need of urgent emergent transfer at this time. Vitals/I&O/Wt Last Vital Signs Temp 97.7 F 09/21/24 13:00 Pulse 61 09/21/24 13:00 Resp 19 H 09/21/24 13:00 BP 129/54 09/21/24 13:00 Pulse Ox 98 09/21/24 11:03 O2 Del Method Room Air 09/21/24 11:03 FiO2 21 09/20/24 21:00 09/21/24 09/21/24 09/21/24 06:59 14:59 22:59 Intake Total 100 / 1460 600 / 600 Output Total 350 / 350 Balance -250 / 1110 600 / 600 Weight last 48 hrs Weight 103.555 kg Weight 97.522 kg Weight 97.522 kg Physical Exam Narrative: General: No acute distress, AO x3 HEENT: PERRLA, pupils bilaterally equal and reactive, pallors not present Chest: Normal vesicular breath sounds, no added sounds, equal good air entry bilaterally CVS: S1-S2 regular, no murmurs, no tachycardia, no gallops, no rubs Abdomen: Soft, nontender, no organomegaly, bowel sounds present Neuro: No focal deficits, no facial deformity, AO x3, Data 09/21/24 06:09 09/21/24 06:09 Micro: Microbiology 09/20/24 06:37 Urine Culture - Preliminary Urine,Clean Catch A&P Assessment and plan (1) Complicated UTI (urinary tract infection): 69-year-old lady with past medical history is notable above, history of recent CVA in April 2024, residual right-sided hemiparesis presenting to the hospital with right-sided weakness. Patient states that the weakness has improved and is now back at baseline. She may potentially have had a TIA. She has been off aspirin for the past week as she has a stent exchange procedure at [facility] on Saturday. Concerned that with the history of ureteric stents, creatinine today at 2.3, history of being on chronic suppression with cefdinir, possibility of obstructing pyelonephritis is not excluded at this time. Will obtain CT of the abdomen and pelvis to assess for any hydronephrosis, stent occlusion which would warrant an urgent urological consultation. Patient is typically on prophylaxis with cefdinir, daughter reports that prior urine cultures have grown E. coli. Will start her on ceftriaxone 1 g IV every 24 hours and monitor for improvement. She typically follows with infectious disease at [facility] with Dr. Monge. Established with Dr. Simmons from urology. (2) DENNISE (acute kidney injury): Acute kidney injury creatinine at 2.3. She has received normal saline at 100 cc an hour since admission. Check serial creatinine for improvement. CT abdomen and pelvis as ordered above to assess for any obstructive process which would need urgent urological intervention. (3) Altered mental status: Reported altered mental status and confusion at home. At this time patient is alert awake and oriented. No concerns currently with regards to mentation. CT head is without any acute intracranial events Patient has been off aspirin for the past week due to anticipated procedure on Saturday. Since I have low suspicion of a stroke at this time, we will continue to hold off aspirin in case patient is able to be discharged in time to keep her appointment on Saturday. (4) Leg swelling: Bilateral asymmetric leg swelling. Left greater than right. Ordered ultrasound of the lower extremity to assess for any DVT. Plan DVT prophylaxis: Lovenox 30 mg subcutaneously daily 09/21/2024 Creatinine 2.4 today Switch fluid selective drink lots per nephrology recommendations Nephro consulted ? Mental status improved. She is awake alert oriented at this time. continue to tx uti with zosyn recheck labs in am continue to hold aspirin PDMP PDMP Reviewed: Not Reviewed Attestations Medical Necessity Statement*: Greater than 2 midnight stay is anticipated Diagnoses Complicated UTI (urinary tract infection) N39.0 DENNISE (acute kidney injury) N17.9 Altered mental status R41.82 Leg swelling M79.89
[2024-09-21 18:57] LABS: Creatinine Urine, Random 66 mg/dL (28-217); Potassium, Radom Urine 20 mmol/L; Urine Random Chloride 82 mmol/L; Urine Random Sodium 99 mmol/L
[2024-09-21 19:03] LABS: Microalbum Creatinine Ratio Ur 288 mg/dL (0-20)
[2024-09-22] VITALS (15 sets, daily range): BP systolic 124–151; BP diastolic 54–75; PULSE 54–66; RESP 15–18; TEMP 36.5–36.9; O2SAT 95–99
--- NOTE | 2024-09-22 00:57 | PC.NURSE ---
urine has specks of blood noted
[2024-09-22] MEDS: piperacillin-tazobactam 3.375 GM in sodium chloride 0.9% (plus) 50 ML IV ×2 (03:19→17:08)
--- NOTE | 2024-09-22 08:03 | PM.PN ---
Subjective Subjective: feels better. she had hematuria overnight. no n/v/f/c/mathur/d. weak, dec edema, facial assymetry. wekaness Medications: Reviewed: Yes Medication Review Details: Current Medications Acetaminophen (Acetaminophen 325 Mg Tablet) 650 mg PO Q6H PRN PRN Reason: Mild/Mod Pain Or Temp >/= 101 Last Admin: 09/21/24 05:16 Dose: 650 mg Aspirin (Aspirin 81 Mg Ec Tablet) 81 mg PO DAILY [facility] Atorvastatin Calcium (Atorvastatin 40 Mg Tablet) 40 mg PO BEDTIME [facility] Last Admin: 09/21/24 20:38 Dose: 40 mg Enoxaparin Sodium (Enoxaparin 30 Mg/0.3 Ml Syringe) 30 mg SUBCUT Q24H [facility] Last Admin: 09/21/24 17:07 Dose: 30 mg Ferrous Sulfate (Ferrous Sulfate Ec 325 Mg Tablet) 325 mg PO DAILY [facility] Hydralazine HCl (Hydralazine 25 Mg Tablet) 25 mg PO BID [facility] Last Admin: 09/21/24 19:20 Dose: Not Given Piperacillin Sod/Tazobactam (Sod 3.375 gm/ Sodium Chloride) 50 mls @ 12.5 mls/hr IV Q8H [facility] Last Admin: 09/22/24 03:19 Dose: 12.5 mls/hr Lactated Ringer's (Lactated Ringers) 1,000 mls @ 75 mls/hr IV .[id number] [facility] Last Admin: 09/21/24 14:52 Dose: 75 mls/hr Levothyroxine Sodium (Levothyroxine 88 Mcg Tablet) 88 mcg PO QAM [facility] Last Admin: 09/22/24 05:43 Dose: 88 mcg Metoprolol Succinate (Metoprolol Succinate Er (24 Hr) 50 Mg Tablet) 50 mg PO DAILY [facility] Ondansetron HCl (Ondansetron 2 Mg/Ml Sdv 2 Ml) 4 mg IVP Q8H PRN PRN Reason: vomiting, or N/V if npo Pantoprazole Sodium (Pantoprazole Dr 40 Mg Tablet) 40 mg PO DAILY [facility] Last Admin: 09/21/24 08:45 Dose: 40 mg Tamsulosin HCl (Tamsulosin 0.4 Mg Capsule) 0.4 mg PO DAILY [facility] Vitals/I&O/Wt Last Vital Signs Temp 97.8 F 09/22/24 07:53 Pulse 58 L 09/22/24 07:53 Resp 18 09/22/24 07:53 BP 137/54 09/22/24 07:53 Pulse Ox 97 09/22/24 07:53 O2 Del Method Room Air 09/21/24 15:38 FiO2 21 09/20/24 21:00 09/21/24 09/22/24 09/22/24 22:59 06:59 14:59 Intake Total 360 / 1010 50 / 1060 Output Total 100 / 100 600 / 700 Balance 260 / 910 -550 / 360 Weight last 48 hrs Weight 103.419 kg Weight 103.555 kg Weight 97.522 kg Physical Exam Narrative: Vital signs noted. Patient lying comfortably in bed. HEENT normocephalic atraumatic. Neck is supple Lungs clear to auscultation. Heart is regular Abdomen soft positive bowel sounds nontender. Extremities no edema. Neuro weak awake alert oriented x 2+.weak, facial asymetric Data 09/21/24 06:09 09/21/24 06:09 Micro: Microbiology 09/20/24 06:37 Urine Culture - Preliminary Urine,Clean Catch A&P Assessment and plan (1) DENNISE (acute kidney injury): 69-year-old lady history of hypertension diabetes ureteral stents CVA. Patient here with question of UTI and acute kidney injury. 1. Acute kidney injury- Urinalysis reviewed 1+ protein 2+ blood 3+ leukoesterase greater than 100 RBCs specific gravity of 1012 greater than 100 white cells. This appears to be consistent with an infection. Noted she was on prophylactic antibiotic. -urine microalbumin 288 - urine sodium elevated after fluids Creatinine appears to be stabilizing. I will change her fluids to lactated Ringer's. 2. Hyperchloremic metabolic acidosis non-anion gap likely from acute kidney injury diarrhea and normal saline. Will monitor on lactated Ringer's. 3. Anemia workup as per PMD. 4. Diabetes monitor for hypoglycemia with acute kidney injury. I agree with holding glyburide at this time. Based on patient's repeat chemistries hopefully she can be discharged for her ureteral stent change by urology this afternoon -if cr is rising, would recommend transfer for stent exchange as an inpatient 5. Q of TIa- i agree w/ neuro eval prior to any eye procedures Patient was seen examined using A/V equipment with the aid of a nurse. The patient consented to telehealth visit. Plan see above PDMP PDMP Reviewed: Not Reviewed Attestations Medical Necessity Statement*: dennise, uti, hydronephrosis Time Spent in Patient Care: 16 - 35 minutes (>than 50% of time spent in counselling and/or direct pt care on unit). Coding Level of Care Code Acute Code for [facility] Fwd Diagnoses DENNISE (acute kidney injury) N17.9
[2024-09-22] MEDS: ferrous sulfate EC 325 mg Tablet PO (08:55)
[2024-09-22 09:03] LABS: Alanine Aminotransferase 10 U/L (0-33); Albumin Level 3.4 g/dL (3.5-5.2); Alkaline Phosphatase 99 U/L (35-105); Anion Gap 14.5 (5-19); Aspartate Amino Transferase 11 U/L (0-32); Blood Urea Nitrogen 26 mg/dL (8-23); Calcium 8.6 mg/dL (8.5-10.5); Carbon Dioxide 20 mmol/L (22-29); Chloride 110 mmol/L (98-107); Creatinine Clr Calc Pharmacy 27.7065; Globulin 4.1 g/dL (1.3-4.6); Glucose 128 mg/dL (65-115); Magnesium 2.0 mg/dL (1.7-2.3); Osmolality Calculated 296 mOsm/kg (285-295); Potassium 4.5 mmol/L (3.5-5.1); Sodium 140 mmol/L (136-145); Total Protein 7.5 g/dL (6.6-8.7)
[2024-09-22] MEDS: metoprolol succinate ER (24 HR) 50 mg Tablet PO (09:05)
[2024-09-22 09:33] LABS: Hematocrit 32.6 % (36-47); Hemoglobin 9.70 g/dL (11.27-16.99); Mean Corpuscular HGB Conc 29.8 g/dL (30-55); Mean Corpuscular Hemoglobin 28.3 pg (27-33); Mean Corpuscular Volume 95.0 fl (85-98); Nucleated Red Blood Cells % 0 %; Platelet Count 127 10^3/cmm (157-399); Red Blood Count 3.43 10^6/uL (3.85-5.65); White Blood Count 8.15 10^3/uL (3.29-11.43)
[2024-09-22 09:51] LABS: Ferritin 225 ng/mL (15-150); Iron 52 ug/dL (37-145); Total Iron Binding Capacity 158 mcg/dl; Unsaturated Iron Binding 106 ug/dL (112-347)
--- NOTE | 2024-09-22 16:30 | P.TS_ITS ---
Transfer Summary Providers Date of Admission: 09/20/24 15:50 Date of Discharge/Transfer: 09/22/24 Attending Provider at Admission: Agatha Duron MD Attending Provider at Transfer: Karen Ozuna MD Primary Care Provider: Celia Louis MD Transfer Plans: Anticipated date of transfer: 09/22/24 . 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 Patient states that she has baseline right-sided residual illness, however at 4 AM today she woke up and found her right side to be significantly weaker. She states that her hand was incoordinated. Her daughter reports that over the past week she has had episodes of involuntary spasms of the right hand and leg. Daughter also notes that her droop appears to be worse today compared to previously. Daughter notes that patient has been increasingly irritable and intermittently confused over the past 2 to 3 days wherein she would forget the name of her medications and has forgotten days of week. At the time of my assessment patient is awake alert and oriented x 3. CT of the head was performed in the emergency room which did not show any acute intracranial abnormality. Patient admitted for complicated UTI, DENNISE. Creatinine 2.4 which is now 2.1. We will continue patient on Zosyn at this time. Urine culture positive for gram- negative rods. Sensitivity pending. She is supposed to have stent exchange done as an outpatient. However given her DENNISE and current UTI recommendation made by nephrology to transfer to higher level of care where urology services would be available. I spoke to patient's urologist over the phone at [facility] however there is no bed available there. He recommends if the creatinine remains high she should be transferred inpatient to another facility. I discussed with nephrology again today and they recommend transfer. Patient will need urological intervention going forward. Case discussed with hospitalist and urologist at [facility] who have accepted the patient for transfer. Physical Exam Narrative: General: No acute distress, AO x3 HEENT: PERRLA, pupils bilaterally equal and reactive, pallors not present Chest: Normal vesicular breath sounds, no added sounds, equal good air entry bilaterally CVS: S1-S2 regular, no murmurs, no tachycardia, no gallops, no rubs Abdomen: Soft, nontender, no organomegaly, bowel sounds present Neuro: No focal deficits, no facial deformity, AO x3, TS Data Studies Completed and Pending Pending at discharge Category Date Time Status Comprehensive Metabolic Panel AM LABS Lab 09/23/24 04:00 Ordered Comprehensive Metabolic Panel AM LABS Lab 09/24/24 04:00 Ordered Urine Culture Stat Lab 09/20/24 06:37 Results Completed Studies During Hospitalization Category Date Time Status CT abdomen renal stone [CT kidney stone 92198] Routine Cat Scan 09/20/24 15:[address] head thrombolytic 90999 Stat Cat Scan 09/20/24 05:14 Completed XR chest 1V portable [id number] Stat Exams 09/20/24 05:14 [place] [id number] Routine Ultrasound 09/20/24 17:05 Completed Laboratory Last Values WBC 8.15 10^3/uL (3.29-11.43) 09/22/24 09:25 Corrected WBC Cancelled 09/22/24 08:23 RBC 3.43 10^6/uL (3.85-5.65) L 09/22/24 09:25 Hgb 9.70 g/dL (11.27-16.99) L 09/22/24 09:25 Hct 32.6 % (36-47) L 09/22/24 09:25 MCV 95.0 fl (85-98) 09/22/24 09:25 MCH 28.3 pg (27-33) 09/22/24 09:25 MCHC 29.8 g/dL (30-55) L 09/22/24 09:25 RDW 13.7 % (12.1-15.1) 09/22/24 09:25 Plt Count 127 10^3/cmm (157-399) L 09/22/24 09:25 MPV 11.6 fL (7.4-10.4) H 09/22/24 09:25 Gran % Cancelled 09/22/24 08:23 Neut % (Auto) 35.8 % 09/22/24 09:25 Lymph % (Auto) 39.4 % 09/22/24 09:25 [place] % (Auto) 23.1 % 09/22/24 09:25 Eos % (Auto) 0.9 % 09/22/24 09:25 Baso % (Auto) 0.4 % 09/22/24 09:25 Neut # (Auto) 2.93 10^3/uL (1.8-7.7) 09/22/24 09:25 Lymph # (Auto) 3.2 10^3/uL (0.8-4.8) 09/22/24 09:25 [place] # (Auto) 1.9 10^3/uL (0.2-0.9) H 09/22/24 09:25 Eos # (Auto) 0.1 10^3/uL (0.0-0.8) 09/22/24 09:25 Baso # (Auto) 0.0 10^3/uL (0.0-0.1) 09/22/24 09:25 Absolute Gran (auto) Cancelled 09/22/24 08:23 Nucleated RBC % (auto) 0 % 09/22/24 09: Nucleated RBCs # 0.0 /100WBC 09/22/24 09:25 PT 13.60 SECONDS (12.1-14.9) 09/20/24 05:22 INR 0.97 (0.8-1.2) 09/20/24 05:22 APTT 26.2 SECONDS (23.9-36.7) 09/20/24 05:22 Sodium 140 mmol/L (136-145) 09/22/24 08:23 Potassium 4.5 mmol/L (3.5-5.1) 09/22/24 08:23 Chloride 110 mmol/L (98-107) H 09/22/24 08:23 Carbon Dioxide 20 mmol/L (22-29) L 09/22/24 08:23 Anion Gap 14.5 (5-19) 09/22/24 08:23 BUN 26 mg/dL (8-23) H 09/22/24 08:23 Creatinine 2.1 mg/dL (0.5-0.9) H 09/22/24 08:23 GFR Calculation Not Reportable 09/22/24 08:23 Glucose 128 mg/dL (65-115) H 09/22/24 08:23 POC Glucose 222 mg/dL (70-110) H 09/22/24 16:22 Calculated Osmolality 296 mOsm/kg (285-295) H 09/22/24 08:23 Uric Acid 6.8 mg/dL (2.4-5.7) H 09/21/24 06:09 Calcium 8.6 mg/dL (8.5-10.5) 09/22/24 08:23 Magnesium 2.0 mg/dL (1.7-2.3) 09/22/24 08:23 Iron 52 ug/dL (37-145) 09/22/24 08:23 TIBC 158 mcg/dl 09/22/24 08:23 % Saturation 32.9 % (20-50) 09/22/24 08:23 Unsat Iron Binding 106 ug/dL (112-347) L 09/22/24 08:23 Ferritin 225 ng/mL (15-150) H 09/22/24 08:23 Total Bilirubin 0.3 mg/dL (0.15-1.2) 09/22/24 08:23 AST 11 U/L (0-32) 09/22/24 08:23 ALT 10 U/L (0-33) 09/22/24 08:23 Alkaline Phosphatase 99 U/L (35-105) 09/22/24 08:23 Creatine Kinase 36 U/L (26-192) 09/21/24 06:09 Total Protein 7.5 g/dL (6.6-8.7) 09/22/24 08:23 Albumin 3.4 g/dL (3.5-5.2) L 09/22/24 08:23 Globulin 4.1 g/dL (1.3-4.6) 09/22/24 08:23 Urine Color Yellow (Yellow) 09/20/24 06:37 Urine Appearance Cloudy (CLEAR) A 09/20/24 06:37 Urine pH 7.5 (5-7) 09/20/24 06:37 Ur Specific [place] 1.012 (1.005-1.030) 09/20/24 06:37 Urine Protein 1+ (Negative) A 09/20/24 06:37 Urine Glucose (UA) Negative (Normal) 09/20/24 06:37 Urine Ketones Negative (Negative) 09/20/24 06:37 Urine Blood 2+ (Negative) A 09/20/24 06:37 Urine Nitrate Negative (Negative) 09/20/24 06:37 Urine Bilirubin Negative (Negative) 09/20/24 06:37 Urine Urobilinogen 0.2 mg/dL (Negative) 09/20/24 06:37 Ur Leukocyte Esterase 3+ (Negative) A 09/20/24 06:37 Urine RBC >100 /hpf (0-2) H 09/20/24 06:37 Urine WBC >100 /hpf (0-5) H 09/20/24 06:37 Ur Squamous Epith Cells 0-5 /hpf (0-5) 09/20/24 06:37 Amorphous Sediment Not Reportable 09/20/24 06:37 Urine Bacteria Trace /hpf (NONE) 09/20/24 06:37 Hyaline Casts 6.20 /lpf 09/20/24 06:37 Ur Random Microalbumin 19 ug/dL (0-20) 09/21/24 18:08 U Random Total Protein 66 mg/dL 09/21/24 18:08 Ur Random Sodium 99 mmol/L 09/21/24 18:08 Ur Random Potassium 20 mmol/L 09/21/24 18:08 Ur Random Chloride 82 mmol/L 09/21/24 18:08 Urine Creatinine 66 mg/dL (28-217) 09/21/24 18:08 Urine Creatinine 68 mg/dL (28-217) 09/21/24 18:08 Microalb/Creat Ratio 288 mg/dL (0-20) H 09/21/24 18:08 Urine Opiates Screen Negative ng/mL (Negative) 09/20/24 06:37 Ur Barbiturates Screen Negative ng/mL (Negative) 09/20/24 06:37 Ur Phencyclidine Scrn Negative ng/mL (Negative) 09/20/24 06:37 Ur Amphetamines Screen Negative ng/mL (Negative) 09/20/24 06:37 U Benzodiazepines Scrn Positive ng/mL (Negative) H 09/20/24 06:37 Urine Cocaine Screen Negative ng/mL (Negative) 09/20/24 06:37 U Marijuana (THC) Screen Negative ng/mL (Negative) 09/20/24 06:37 Radiology Impressions Chest X-Ray 09/20/24 05:14 IMPRESSION: Cardiomegaly. No acute process Head CT 09/20/24 05:14 IMPRESSION: No acute intracranial abnormality. ASSESSMENT: ASPECTS ([place]vel[place] Stroke Program Early CT Score) is 10. ADDENDUM: 09/20/24 0558 THIS REPORT CONTAINS FINDINGS THAT MAY BE CRITICAL TO PATIENT CARE. The findings were verbally communicated via telephone conference with RENETTA REMY at 5:56 AM CDT on 09/20/2024. The findings were acknowledged and understood. Abdomen/Pelvis CT 09/20/24 15:07 IMPRESSION: 1. Increased stranding of the fat in the mesentery with 4.9 x 3.4 cm soft tissue in the mesentery. Differential diagnosis includes mesenteric neoplasm such as carcinoid (though no calcification is seen) and mesenteric adenitis/panniculitis. Recommend short-term follow-up CT. 2. Multiple right renal stones are again seen. Bilateral ureteral stents. Mild left hydronephrosis is stable. 3. Stable sclerosis of the S1 body. Venous Duplex 09/20/24 17:05 IMPRESSION: No evidence of deep vein thrombosis. Recent Clincial Data Last Vital Signs Temp 97.8 F 09/22/24 12:07 Pulse 54 L 09/22/24 12:07 Resp 17 09/22/24 12:07 BP 134/56 09/22/24 12:07 Pulse Ox 96 09/22/24 12:07 O2 Del Method Room Air 09/21/24 15:38 FiO2 21 09/20/24 21:00 Vital Signs Temp Pulse Resp BP Pulse Ox 09/22/24 12:07 97.8 F 54 L 17 134/56 96 09/22/24 09:02 61 138/66 09/22/24 09:00 61 138/66 09/22/24 08:00 97.8 F 58 L 18 137/54 09/22/24 07:53 97.8 F 58 L 18 137/54 97 09/22/24 07:00 97.8 F 58 L 18 137/54 09/22/24 05:23 97.7 F 66 15 151/75 99 Intake & Output/Weight 09/20/24 09/21/24 09/22/24 09/23/24 06:59 06:59 06:59 06:59 Intake Total 1460 / 1460 1060 / 1060 Output Total 350 / 350 700 / 700 Balance 1110 / 1110 360 / 360 Weight 97.522 kg 103.555 kg 103.419 kg Vitals Last Vital Signs Temp 97.8 F 09/22/24 12:07 Pulse 54 L 09/22/24 12:07 Resp 17 09/22/24 12:07 BP 134/56 09/22/24 12:07 Pulse Ox 96 09/22/24 12:07 O2 Del Method Room Air 09/21/24 15:38 FiO2 21 09/20/24 21:00 TS Medications Medications Acetaminophen (Acetaminophen 325 Mg Tablet) 650 mg PO Q6H PRN PRN Reason: Mild/Mod Pain Or Temp >/= 101 Last Admin: 09/21/24 05:16 Dose: 650 mg Aspirin (Aspirin 81 Mg Ec Tablet) 81 mg PO DAILY [facility] Last Admin: 09/22/24 09:05 Dose: Not Given Atorvastatin Calcium (Atorvastatin 40 Mg Tablet) 40 mg PO BEDTIME [facility] Last Admin: 09/21/24 20:38 Dose: 40 mg Enoxaparin Sodium (Enoxaparin 30 Mg/0.3 Ml Syringe) 30 mg SUBCUT Q24H [facility] Last Admin: 09/21/24 17:07 Dose: 30 mg Ferrous Sulfate (Ferrous Sulfate Ec 325 Mg Tablet) 325 mg PO DAILY [facility] Last Admin: 09/22/24 08:55 Dose: 325 mg Piperacillin Sod/Tazobactam (Sod 3.375 gm/ Sodium Chloride) 50 mls @ 12.5 mls/hr IV Q8H [facility] Last Admin: 09/22/24 03:19 Dose: 12.5 mls/hr Lactated Ringer's (Lactated Ringers) 1,000 mls @ 75 mls/hr IV .[id number] [facility] Last Admin: 09/21/24 14:52 Dose: 75 mls/hr Levothyroxine Sodium (Levothyroxine 88 Mcg Tablet) 88 mcg PO QAM [facility] Last Admin: 09/22/24 05:43 Dose: 88 mcg Metoprolol Succinate (Metoprolol Succinate Er (24 Hr) 50 Mg Tablet) 50 mg PO DAILY [facility] Last Admin: 09/22/24 09:05 Dose: 50 mg Ondansetron HCl (Ondansetron 2 Mg/Ml Sdv 2 Ml) 4 mg IVP Q8H PRN PRN Reason: vomiting, or N/V if npo Pantoprazole Sodium (Pantoprazole Dr 40 Mg Tablet) 40 mg PO DAILY [facility] Last Admin: 09/22/24 09:05 Dose: 40 mg Tamsulosin HCl (Tamsulosin 0.4 Mg Capsule) 0.4 mg PO DAILY [facility] Last Admin: 09/22/24 08:56 Dose: 0.4 mg Discontinued Medications Ceftriaxone Sodium (Ceftriaxone 1,000 Mg Sdv) 1,000 mg IVP ONCE ONE; Protocol Stop: 09/20/24 08:07 Last Admin: 09/20/24 09:30 Dose: 1,000 mg Ceftriaxone Sodium (Ceftriaxone 1,000 Mg Sdv) 1,000 mg IVP Q24H [facility]; Protocol Hydralazine HCl (Hydralazine 25 Mg Tablet) 25 mg PO BID [facility] Last Admin: 09/21/24 19:20 Dose: Not Given Sodium Chloride (Sodium Chloride 0.9%) 1,000 mls @ 125 mls/hr IV .Q8H [facility] Last Infusion: 09/20/24 15:54 Dose: Infused Tenecteplase (Tenecteplase 50mg Kit (Stroke)) 24 mg 0.25 mg/kg (24 mg) IVP ONCE PRN; Protocol PRN Reason: See Dose Instructions Allergies adhesive tape Allergy (Verified 07/25/23 13:53) rash ciprofloxacin (From Cipro) Allergy (Verified 07/25/23 13:53) peeling of hands and feet latex Allergy (Verified 07/25/23 13:53) ALGY-Rash silver (From Tegaderm AG Mesh) Allergy (Verified 08/27/24 10:55) Unknown sulfamethoxazole (From Bactrim) Allergy (Verified 07/25/23 13:53) doesn't work trimethoprim (From Bactrim) Allergy (Verified 07/25/23 13:53) doesn't work Home Medications glyburide 2.5 mg tablet 2.5 mg PO BID 09/05/20 [History Confirmed 09/20/24] metoprolol succinate 50 mg tablet,extended release 24 hr 50 mg PO DAILY 04/30/22 [History Confirmed 09/20/24] tamsulosin 0.4 mg capsule 0.4 mg PO DAILY 04/30/22 [History Confirmed 09/20/24] Diabetic shoes and 3 pairs of inserts #1 ea 02/10/23 [Rx Confirmed 09/20/24] aspirin 81 mg tablet,delayed release (Adult Aspirin Regimen) 81 mg PO DAILY #30 tabs 04/13/23 [Rx Confirmed 09/20/24] atorvastatin 40 mg tablet 40 mg PO BEDTIME #30 tabs 04/13/23 [Rx Confirmed 09/20/24] acidophilus 100 million cell-pectin, citrus 10 mg capsule 1 cap PO DAILY 06/27/24 [History Confirmed 09/20/24] cefdinir 300 mg capsule See Rx Instructions .Route .COMPLEX 06/27/24 [History Confirmed 09/20/24] ferrous sulfate 325 mg (65 mg iron) tablet (Iron (ferrous sulfate)) 325 mg PO DAILY 06/27/24 [History Confirmed 09/20/24] levothyroxine 88 mcg tablet 88 mcg PO QAM 06/27/24 [History Confirmed 09/20/24] hydralazine 25 mg tablet 25 mg PO BID 09/20/24 [History Confirmed 09/20/24] Discharge Plan Discharge Patient Disposition: Xfer Short-Term Hosp Condition: Stable Prescriptions: No Action glyburide 2.5 mg tablet 2.5 mg PO BID metoprolol succinate 50 mg tablet extended release 24 hr 50 mg PO DAILY tamsulosin 0.4 mg capsule 0.4 mg PO DAILY (DME) Diabetic shoes and 3 pairs of inserts See Rx Instructions .Route .MEDSUPPLY Qty: 1 0RF Rx Instructions: As directed HOME atorvastatin 40 mg Tablet 40 mg PO BEDTIME Qty: 30 0RF aspirin [Adult Aspirin Regimen] 81 mg tablet,delayed release (DR/EC) 81 mg PO DAILY Qty: 30 0RF Patient Comments: On hold Rx Instructions: doctor put Medication on hold hydralazine 25 mg tablet 25 mg PO BID levothyroxine 88 mcg tablet 88 mcg PO QAM ferrous sulfate [Iron (ferrous sulfate)] 325 mg (65 mg iron) Tablet 325 mg PO DAILY cefdinir 300 mg Capsule See Rx Instructions .ROUTE .COMPLEX Rx Instructions: take one capsule on Saturday and Saturday until Doctors appointment . acidophilus-pectin, citrus [Acidophilus Probiotic] 100 million cell-10 mg Capsule 1 cap PO DAILY Other Ambulatory Orders: DME: CPAP (Order) Location: None Selected Ordered By: Karen Ozuna Referrals: Celia Louis MD [Primary Care Provider, Family Practice] Transfer Attestations Time Spent in Transfer Care: greater than 30 min Status at Transfer: Cognitive status at transfer: cognitively intact ; Behavioral status at transfer: cooperative ; Quality Metrics Clinical Quality Measures [ No reported AMI, CVA or VTE this stay] Coding Level of Care Code Acute Code for Chg Fwd Diagnoses DENNISE (acute kidney injury) N17.9
[2024-09-23 02:34] VITALS: BP 131/55; PULSE 62; O2SAT 95
== END 2024-09-23 02:38 | disposition short-term general hospital (02) | DRG 690 ==
LOC: ER 08:17 → ER IP 11:04 → MEDSURG 12:06
PROVIDERS: Emergency Medicine; Internal Medicine Nephrology; Admitting Provider Student in an Organized Health Care Education/Training Program; Emergency Provider Emergency Medicine; PCP Family Medicine; Visit Provider Internal Medicine
DX: N39.0 Urinary tract infection, site not specified (principal); N17.9 Acute kidney failure, unspecified; E87.20 Acidosis, unspecified; I69.351 Hemiplegia and hemiparesis following cerebral infarction affecting right dominant side; I12.9 Hypertensive chronic kidney disease with stage 1 through stage 4 chronic kidney disease, or unspecified chronic kidney disease; N18.9 Chronic kidney disease, unspecified; E11.22 Type 2 diabetes mellitus with diabetic chronic kidney disease; I69.392 Facial weakness following cerebral infarction; Z87.891 Personal history of nicotine dependence; Z96.0 Presence of urogenital implants; R22.43 Localized swelling, mass and lump, lower limb, bilateral; D64.9 Anemia, unspecified; E03.9 Hypothyroidism, unspecified; N13.30 Unspecified hydronephrosis
CPT/HCPCS: 36415; 36416; 70450; 71045; 74176; 80053; 80306; 81001; 82044; 82436; 82550; 82570; 82728; 82962; 83540; 83550; 83735; 84133; 84156; 84300; 84550; 85025; 85610; 85730; 87077; 87086; 87186; 93005; 93970; 94660; 96361; 96372; 96374; 96375; 99285; G0378; J0696; J1650; J2543; J7030; J7120; J9999

== ENCOUNTER 2024-11-01 14:11 | Emergency (ER) | payer MEDICARE, SELFPAY ==
--- OUTSIDE RECORDS SUMMARY | 2003-03-24 19:00 | XMS_ITS | Continuity of Care Document ---
Author Name [facility] Address [address] [place] [address] Organization [facility] Care Team Providers Care Manager Pulmonary Name Role Phone [facility] Unavailable Problems Problem Status Onset [...] syndrome, acral type Severe Drug allergy Active [facility] Latex Assertion skin irritaion Drug allergy Active [facility] Tape, Adhesive Assertion skin irritation Allergy to substance Active [facility] Encounters Location Location Details Encounter Type Encounter Number Reason For Visit Attending Provider ADM Date DC Date Status Source [facility] DIAGNOSTIC TESTING [id number] LABS PENDING Juan Jose Doll Cancel [facility] OUTPATIENT [id number] 1 YR F/U Juan Jose Doll Cancel [facility] DIAGNOSTIC TESTING [id number] 202.00:L DH,CBC,C MP Cancel [facility] DIAGNOSTIC TEST [id number] CTCHEST/ FOLLICUL AR LYMPHOMA /LUNG NODULE Juan Jose Doll Cancel [place] [facility] DIAGNOSTIC TESTING [id number] 202.00 CBC,CMP, LDH 6 M FU Juan Jose Doll Cancel [facility] OUTPATIENT [id number] 202.00 CBC,CMP LDH 6 M FU Juan Jose Doll Cancel [place] [facility] DIAGNOSTIC TESTING [id number] 202.00 CBC,CMP, LDH 6 M FU Juan Jose Doll Cancel [place] [facility] OUTPATIENT [id number] 202.00 CBC,CMP LDH 6 M FU Juan Jose Doll Cancel [place] [facility] OUTPATIENT [id number] C85.90;C BC,CMP,L DH;1Y F/U Juan Jose Doll Cancel [place] [facility] DIAGNOSTIC TESTING [id number] C85.90;C BC,CMP,L DH Cancel [place] [facility] OUTPATIENT [id number] C85.90;C BC,CMP,L DH;1Y F/U Juan Jose Doll Cancel [place] [facility] DIAGNOSTIC TESTING [id number] C85.90;C BC,CMP,L DH Cancel [place] [facility] OUTPATIENT [id number] 1 YEAR FU Juan Jose Doll Cancel [place] [facility] DIAGNOSTIC TESTING [id number] C82.90;C BC/CMP/L DH Juan Jose Doll Cancel [place] [facility] DIAGNOSTIC TESTING [id number] C85.90;C BC,CMP,L DH Juan Jose Doll Cancel [place] [facility] OUTPATIENT [id number] C85.90;C BC,CMP,L DH;1Y F/U Juan Jose Doll Cancel [place] [facility]
--- OUTSIDE RECORDS SUMMARY | 2024-08-26 08:00 | XMS_ITS ---
Author Organization [facility] Address [address] [place] [address] Care Team Providers Care Clinical Assoc Name Role Phone Celia Louis Primary Care Provider Nish Quintanilla Unavailable [phone] MARNI CAZARES Unavailable Unavailable Abelardo Monge JR Unavailable [phone] REASON FOR VISIT 3 month f/u - UTI / C Diff Encounters Encounter Location Date Provider Diagnosis [facility] [address] [place] [phone] 08/26/2024 Abelardo Monge Plan Of Treatment Next Appt Details Provider Name:Abelardo del rosario, 11/24/2024 12:30:00 PM, [address] [place] [address], [phone], Provider Name:Mansi monroe, 12/23/2024 01:00:00 PM, [address] [place] [address] [address], [phone], Progress Notes * ALCIRA BECKMAN KDOB: 4 (69 yo F)Acc No.[id number]:08/26/2024 Progress Notes Patient: ALCIRA OLSON Provider: Rupert Monge MD :1955 A ge:69 Y S ex:Female Date:08/26/2024 Address:[address] [place], [place] [phone] Pcp:Celia Louis Subjective: * Chief Complaints: * * * 3 month f/u - UTI / C Diff Care Plan Details* * Electronic signature of Julee Monge JR, MD on 11/04/2024 at 07:41 AM CDT Sign off status: Pending * Provider: Rupert Monge MD Date: 08/26/2024 Generated for Karen hernandez/Sven/Ankitasmitting on: 11/04/2024 07:41 AM CDT
--- OUTSIDE RECORDS SUMMARY | 2024-09-22 11:00 | XMS_ITS ---
Author Organization [facility] Address [address] [place] [address] Care Team Providers Care Tanning Salon Attendant Name Role Phone Celia Louis Primary Care Provider Alee KAUR MAEVE Edi [phone] REASON FOR VISIT BL Ureteral Stent Exchange @ [facility] Encounters Encounter Location Date Provider Diagnosis [facility], [facility] [address] [place] [facility] [place] [address] 09/22/2024 MAEVE KAUR Plan Of Treatment Next Appt Details Provider Name:MAEVE ANDERSON Rupert, 11/05/2024 11:15:00 AM, [address] [facility] [place], [address], Progress Notes * Macey BRUSH KDOB: [birth year] (69 yo F)Acc No.[id number]:09/22/2024 Patient: Tonia HIDALGO Macey Sharma Provider: Elvia KAUR MD :1955 A ge:69 Y S ex:Female Date:09/22/2024 Address:[address] [place], [place] [id number] Pcp:Celia Louis * Billing Information: * Visit Code: * Procedure Codes: * Electronic signature of AUST IN MD NATASHA on 11/01/2024 at 02:21 PM CDT Sign off status: Pending * Provider: Elvia KAUR MD Date: 0 09/22/2024 Generated for Tikai mary/Faxing/eTransmitting on: 0 11/01/2024 02:21 PM CDT
--- OUTSIDE RECORDS SUMMARY | 2024-09-24 12:00 | XMS_ITS ---
Author Organization [facility] Address [address] [place] [address] Care Team Providers Care Promotion Officer Name Role Phone Celia Louis Primary Care Provider MAEVE Powell [phone] REASON FOR VISIT 2 months w/YASMEEN/KUB Encounters Encounter Location Date Provider Diagnosis [facility] [address] [facility] [place] [address] 09/24/2024 MAEVE KAUR Plan Of Treatment Next Appt Details Provider Name:MAEVE Fred HOOKSAaliyah Rupert, 11/05/2024 11:15:00 AM, [address] [place], [address], Progress Notes * Macey BRUSH KDOB: (69 yo F)Acc No.[id number]:09/24/2024 Patient: Tonia HIDALGO Macey Sharma Provider: Elvia KAUR MD :1955 A ge:69 Y S ex:Female Date:09/24/2024 Address:[address] [place], [place] [id number] Pcp:Celia Louis Subjective: * Chief Complaints: * 1 . 2 months w/YASMEEN/KUB. * Medical History: Objective: * Vitals: Assessment: Plan: * Treatment: * Billing Information: * Visit Code: * Procedure Codes: * Electronic signature of AUST IN MD NATASHA on 11/04/2024 at 07:42 AM CDT Sign off status: Pending * Provider: Elvia KAUR MD Date: 0 09/24/2024 Generated for Karen hernandez/Sven/Christian on: 0 11/04/2024 07:42 AM CDT
--- OUTSIDE RECORDS SUMMARY | 2024-10-29 06:13 | XMS_ITS | Encounter Summary ---
Author Organization [facility] Address [address] [place] [address] Care Team Providers Care Mortgage Protection Sales Name Role Phone Jimmy Caballero DO Primary Care Provider [phone] Reason for Referral * Radiology Services (Routine) - Closed Specialty Diagnoses / Procedures Referred By Preeti mckeon Referred To Contact Diagnoses Hydronephrosis, unspecified hydronephrosis type Procedures IR TUBE PLACEMENT Omid Carroll MD [address] [place] [id number] Phone: tel: fax: [employer] Pre-Registration [place] CALL TO MAKE APPOINTMENT ONLY [address] [place] [address] Phone: tel: fax: Referral ID Status Reason Start Date Expiration Date Visits Re quested Visits Authorized [id number] Closed 10/26/2024 11/26/2025 1 1 Reason for Visit * Radiology Services (Routine) - Closed Specialty Diagnoses / Procedures Referred By Controb t Referred To Contact Diagnoses Hydronephrosis, unspecified hydronephrosis type Procedures IR TUBE PLACEMENT Omid Carroll MD [address] [place] [phone] Phone: tel: fax: [employer] Pre-Registration [place] CALL TO MAKE APPOINTMENT ONLY [address] [place] [address] Phone: tel: fax: Referral ID Status Reason Start Date Expiration Date Visits Re quested Visits Authorized [id number] Closed 10/26/2024 11/26/2025 1 1 Encounter Details Date Type Department Care Team (Latest Contact Info) Description 10/29/2024 6:13 AM CDT - 10/29/2024 11:59 PM CDT Hospital Encounter [facility] [address] [place] [address] [facility] [address] [place] [address] Al Kapadia MD [address] [place] [address] Discharge Disposition: Home or Self Care Social History Tobacco Use Types Packs/Day Years Used Date Smoking Tobacco: Former Cigarettes Q uit: 1980 Alcohol Use Standard Drinks/Week Comments Never 0 (1 standard drink = 0.6 oz pur e alcohol) Comments No Sex and Gender Information Value Date Recorded Sex Assigned at Not on file Legal Sex Female 10:44 AM [employer] C[employer] WORK[employer] Gender Identity Not on file Sexual Orientation Not on file documented as of this encounter Last Filed Vital Signs Vital Sign Reading Time Taken Comments Blood Pressure 174/58 10/29/2024 9:20 AM CDT Pulse 67 10/29/2024 9:20 AM CDT Temperature 36.7 C (98 F) 10/29/2024 9:20 AM CDT Respiratory Rate 16 10/29/2024 9:20 AM CDT Oxygen Saturation 93% 10/29/2024 9:20 AM CDT Inhaled Oxygen Concentration - - Weight 99.8 kg (220 lb) 10/29/2024 6:41 AM CDT Height 157.5 cm (5' 2 ) 10/29/2024 6:41 AM CDT Body Mass Index 40.24 10/29/2024 6:41 AM CDT documented in this encounter Medications at Time of Discharge HYDROcodone-acet aminophen (NORCO) 5-325 mg tabletIndication s:Flank pain Take 1 Tablet by mouth every 6 hours as needed for Pain. Max Daily Amount: 4 Tablets 10 Tablet 10/28/2024 glyBURIDE (DIABETA) 1.25 mg tabletIndication s:Type 2 diabetes mellitus with diabetic neuropathy, without long-term current use of insulin ([facility]) Take 1 Tablet (1.25 mg) by mouth daily with breakfast. Hold if blood sugar is below 120. 100 Tablet 3 10/23/2024 conjugated estrogens (PREMARIN) 0.625 mg/gram vaginal cream Insert 0.5 Grams vaginally daily at bedtime. 30 Gram 2 10/21/2024 HYDROcodone-acet aminophen (NORCO) 5-325 mg tabletIndication s:Right flank pain Take 1 Tablet by mouth every 8 hours as needed for Pain, Moderate or Pain, Severe. Max Daily Amount: 3 Tablets 10 Tablet 10/21/2024 L. acidophilus/pect in, citrus (ACIDOPHILUS-PEC TIN, CITRUS ORAL) Take by mouth. levothyroxine 88 mcg tablet Take 88 mcg by mouth daily in the morning. metoprolol succinate (TOPROL XL) 50 mg Extended Release 24 hour tablet Take 50 mg by mouth daily. hydrALAZINE (APRESOLINE) 25 mg tablet Take 25 mg by mouth every 12 hours. tamsulosin (FLOMAX) 0.4 mg capsule Take 0.4 mg by mouth daily. ferrous fumarate (FERRETTS) 325 mg (106 mg iron) Tablet Take 325 mg by mouth. aspirin (ECOTRIN EC) 81 mg Tablet, Delayed Release (E.C.) Take 81 mg by mouth daily. atorvastatin calcium (ATORVASTATIN ORAL) Take 40 mg by mouth daily. Unsure dosage vancomycin (VANCOCIN) 125 mg Capsule Take 1 Capsule (125 mg) by mouth daily for 10 days. 10 Capsule 10/21/2024 5 documented as of this encounter Progress Notes * Ciara Garsia RN - 10/29/2024 8:20 AM CDT Radiology Nursing Assessment Post Invasive Procedure (WDL = within defined limits) Neuro WDL (Alert, oriented x 4) Cardiac - WDL (regular rhythm, no chest pain) Respiratory - WDL (regular rate, depth and pattern, breath sounds clear and equal bilaterally, no shortness of breath) Peripheral Vascular - WDL (capillary refill less than or equal to 3 seconds, pulses palpable to allextremities, extremities warm, no numbness or tingling) Skin - WDL (no abnormalities in integrity, color, temperature, moisture, nailbeds, and mucous membranes pink) Gastorintestinal - WDL (no abnormalities in abd appearance, bowel sounds present in 4 quadrants) Puncture/Incision Site - WDL (no signs of active bleeding or hematoma from puncture site or incision. Skin warm, dry, and intact) Right flank, gauze/tape dressing, CDI. * Bridgette Sevilla RN - 10/29/2024 8:07 AM CDT Imaging Nurse Post Procedure Note (left blank = NA) Right neph tube placemement Dressing (x by appropriate choice): tegaderm: Bandaid: Percustay: Gauze/tape: x Dermabond: Steristrips: Sureseal: Other: Dressing location: right low back Cumulative Dose : plane A: 8 Plane B: (units in mGy) Dose Area Product (DAP) : plane A: 131.38 Plane B: (units in mGy-cm2) All interventional radiology devices/equipment that were utilized during this case were removed intact as reported per reliability technologist Sedation time: 30 (min) (may also be documented via sedation tracking in sedation navigator) Report: Called to Imaging RN: x Tolerated well: x Other: Medications given: versed 2mg, fentanyl 100 mcg * Ciara Garsia RN - 10/29/2024 6:30 AM CDT Radiology Nursing Assessment (WDL = within defined limits) Neuro WDL (Alert, oriented x 4) Cardiac - WDL (regular rhythm, no chest pain) Respiratory - WDL (regular rate, depth and pattern, breath sounds clear and equal bilaterally, no shortness of breath) Peripheral Vascular - WDL (capillary refill less than or equal to 3 seconds, pulses palpable to allextremities, extremities warm, no numbness or tingling) Skin - WDL (no abnormalities in integrity, color, temperature, moisture, nailbeds, and mucous membranes pink) Gastorintestinal - WDL (no abnormalities in abd appearance, bowel sounds present in 4 quadrants) Other - SSI brochure give to pt and/or family (pre-procedure only) * Nay Lerner, RT - 10/29/2024 6:30 AM CDT IMAGING SERVICES- CONTRAST, MEDICATION and FLUSH PROTOCOL [facility] Enter the protocol in the patient's electronic health record using smartReach.lyrase: .imagingcontrastprotocol Communication Orders: Initiate a peripheral IV, if not already in place, and discontinue IV prior to discharge Enter order if needed: Insert Peripheral IV Medication Orders: Lidocaine 4% (L.M.X.4)- applied topically ONE TIME prior to IV catheter insertion PRN (apply 15 minutes prior to procedure) Sodium chloride 0.9% (normal saline) flush- 10 mLs PRN for saline lock or medication administration Oxygen- For respiratory distress, initiate O2 to maintain saturation greater than 90% CAT SCAN CT IV CONTRAST PROTOCOLS FOR ADULTS Iopamidol Injection 61% (ISOVUE-300)- Double bolus with MD approval Routine exams dosed by weight: <150lbs- 75mL 151lbs to 220lbs- 100mL >220lbs- 125mL CT Angiography: 100mL Runoff and Triphasic Liver Protocols: 150mL Iopamidol Injection 76% (ISOVUE-370) Cardiac- 110mL TAVR- 160mL CT IV CONTRAST PROTOCOLS FOR PEDIATRICS Iopamidol Injection 61% (ISOVUE-300) - Routine exams: 1mL per pound Infant and Pediatric- Head / Face: 1mL per pound up to 50 lbs Pediatric- Routine exams: 1mL per pound up to 75 lbs 75-150 lbs: 75mL 150-220 lbs: 100mL >220 lbs: 125mL CT ORAL CONTRAST PROTOCOLS FOR ADULTS Iohexol 300mg/mL (OMNIPAQUE) for CT scan unless patient has a documented allergy to contrast * 15ml added to 16 oz of clear liquid of patient's choice. Preferred route is oral. May use nasoenteric tube if needed. Administer 16 oz the diluted Omnipaque 300, orally 1st dose 30-60 minutes prior to scan and 2nd dose just before scan. * Barium Sulfate 2% w/v (READI-CAT2) for CT scan when patient has documented contrast allergy Administer 2 doses of 450mL of barium sulfate. First dose 30-60 min prior to exam and 2nd dose justbefore exam. Preferred route is oral. May use nasoenteric tube if needed. Barium Sulfate 0.1% w/v, 0.1% w/w (VOLUMEN) for Enterography and GI Bleed protocols Administer VoLumen- 3 doses of 450 mL. 1st dose must be completed within 20 minutes. 2nd dose must be completed in the next 30 minutes. 3rd dose is given at scan time. Preferred route is oral. May use nasoenteric tube if needed. CT ORAL CONTRAST PROTOCOLS FOR PEDIATRICS Preferred route is oral, may use nasoenteric tube if needed. [place] to 3 months- Barium Sulfate 2%w/v (READI-CAT2) thinned with water to a consistency for typical bottle feeding 3 Months to 3 years- Iohexol 300mg/mL (OMNIPAQUE) 5mL diluted with 16oz clear fluid. 1 dose: 30min prior to exam 4 years to 10 years- Iohexol 300mg/mL (OMNIPAQUE) 8mL diluted with 16oz clear fluid. 1 dose: 30min prior to exam 10 years and up- Iohexol 300mg/mL (OMNIPAQUE) 15mL diluted with 16oz clear fluid. 2 doses: first dose 30min prior to exam and 2nd dose just before scan if tolerated CT CYSTOGRAM Iopamidol 61% Injection ([id number]): 25mL Dilute into 500mL bag of sterile NS administer up to 300mL retrograde via urinary catheter DIAGNOSTIC RADIOLOGY Enter the protocol in the patient's electronic health record using smartphrase: ADULTS PROCEDURE DOSAGE ARTHROGRAMS Plain ISOVUE 300 12mL MRI-(Ankle,Elbow,Hip,Wrist,Knee,Shoulder) ISOVUE 300 5mL / Prohance .2ml CT-(Ankle,Elbow,Hip,Wrist,Knee,Shoulder) ISOVUE 300 20mL BARIUM ENEMAS BARIUM ENEMA AIR CONTRAST LIQUID POLIBAR 1900ml BARIUM ENEMA/ GASTROGRAFIN B.E. LIQUID POLIBAR 800mL + 3200mL of water or GASTROGRAFIN 960mL + 3040mL of water. CYSTOGRAM CYSTOGRAFIN 1500mL ESOPHAGUS BARIUM SWALLOW E-Z-HD Barium Sulfate for Suspension 340g. and/or E-Z-PAQUE Barium Sulfate Oral Suspension 355mL OMNIPAQUE 350 50ml or GASTROGRAFIN 120mL Barium tablet 700mg (if indicated) MODIFIED BARIUM SWALLOW Barium tablet 700mg, Varibar paste 90g/Varibar thin 74g/ Varibar honey 125mL/ Varibar [place] 120mL HYSTEROSALPINGOGRAM ISOVUE 300 30ml IVP'S ISOVUE 300 100ml MYELOGRAMS: CERVICAL ISOVUE-M 300 10mL THORACIC ISOVUE-M 300 10mL LUMBAR ISOVUE-M 200 12mL SMALL BOWEL SERIES E-Z-PAQUE Barium Sulfate for Oral Suspension 710mL or GASTROGRAFIN 240mL LOOPOGRAM ISOVUE 300 60mL NEPHROSTOGRAM ISOVUE 300 60mL RETROGRADE URETHROGRAM Cystografin 300mL UPPER GI Upper GI E-Z-HD Barium Sulfate for Suspension: 340g. and/or E-Z-PAQUE Barium Sulfate for Oral Suspension: 355mL Upper GI Air Contrast Same as above EZ Gas crystals (if indicated) URETHROCYSTOGRAM VOIDING Cystografin 1500mL PORT CONTRAST INJECTION WITH Isovue 300 20mL [facility]ORO PEDIATRICS PROCEDURE CONTRAST DOSAGE Upper GI Under Age 5 Liquid E-Z-Paque (Thin Barium) 240mL Omnipaque 180 (hypaque) or 350 50mL Upper GI Above Age 5 EZ HD (Thick Barium) 340g Liquid E-Z Paque (Thin Barium) 240mL EZ Gas Packet 4g Omnipaque 350 (hypaque) 50mL Small Bowel Series Under Age 5 Liquid E-Z Paque (Thin Barium) 240mL Omnipaque 180 (hypaque) 50mL Small Bowel Series Above Age 5 Liquid E-Z Paque (Thin Barium) 480mL Omnipaque 350 50mL Barium Swallow Under Age 5 Liquid E-Z Paque (Thin Barium) 240mL Omnipaque 180 (hypaque) 50mL Barium Swallow Above Age 5 EZ HD (Thick Barium) 340g Liquid E-Z Paque (Thin Barium) 240mL Omnipaque 350 50mL Modified Barium Swallow >1 Varibar [id number]: 1 to 2 Varibar Thin74 Paste 90g (Video Swallow with Speech) <2 Varibar Wiij73x, [id number], Honey 125mL, Paste 90g IVP Isovue 300 100mL/1mL per lb. Urethrocystogram Voiding Cystografin 500mL Barium Enema Liquid Polibar 400mL+1600 water 2000mL Barium Enema with Hypaque Gastrografin 1 bottle mixed 5 bottle water 720mL Over 5 Gastrografin 480mL+1520 water 2000mL Barium Enema Air Contrast Liquid Polibar 1900mL INTERVENTIONAL RADIOLOGY PROCEDURE DOSAGE IR ARTERIOGRAM VISIPAQUE 320 OR OMNIPAQUE 300 MAX DOSAGE 400mL IR BILIARY ISOVUE 200 MAX DOSAGE 300 mL IR FISTULOGRAM ISOVUE 200 OR VISIPAQUE 320 MAX DOSAGE 400mL IR IVC FILTER ISOVUE 200 OR VISIPAQUE MAX DOSAGE 400 mL IR TUBE PLACEMENT ISOVUE 200 MAX DOSAGE 300 mL IR VENOUS ABDOMINAL VISIPAQUE 320 OR ISOVUE 200 MAX DOSAGE 400 mL IR VENOUS ACCESS ISOVUE 200 MAX DOSAGE 300 mL IR VENOUS UPPER AND LOWER EXTREMITY VISIPAQUE 320 OR ISOVUE 200 MAX DOSAGE 400 mL IR SPINAL INTERVENTION ISOVUE 200 MAX DOSAGE 100mL (FOR BALLOON ONLY) MRI MRI IV CONTRAST PROTOCOLS FOR ADULTS Gadobenate Dimeglumine (MULTIHANCE) (0.1mmol/0.2mL)- Administer 0.1mmol/kg = 0.2mL/kg up to 30mL MAX, intravenously, one time only for routine MRI Gadoxetate (EOVIST) (2.5 mmol/10mL)- Administer 0.025mmol/kg = 0.1mL/kg up to 15mL MAX, intravenously, one time only when requested by radiologist for Liver protocol Gadoteridol (PROHANCE) (0.1mmol/0.2mL)- Administer 0.1mmol/kg = 0.2mL/kg up to 30mL MAX, intravenously, one time only when approved by radiologist for routine MRI MRI IV CONTRAST PROTOCOLS FOR PEDIATRICS Radiologist to determine the need for contrast Term neonates and older: Gadobenate Dimeglumine (MULTIHANCE) (0.1mmol/0.2mL) -Administer 0.1mmol/kg = 0.2mL/kg up 20mL MAX, intravenously, one time only MRI ORAL CONTRAST PROTOCOLS Barium Sulfate 0.1% w/v, 0.1% w/w (VOLUMEN) for Enterography Administer VoLumen- 3 doses of 450 mL. 1st dose must be completed within 20 minutes. 2nd dose must be completed in the next 30 minutes. 3rd dose is given at scan time. Preferred route is oral. May use nasoenteric tube if needed. Use half dose if patient is <100lb NUCLEAR MEDICINE Procedure: Abscess Localization Medications for Procedure: In-111 Leukocytes *Syringes prepped with 2000 units of Heparin added to 10ml of 6% Hetastarch- Approximately 45ml's patient's blood added to the above for labeling Adult Dose: 300-550uCi Pediatric Dose Calculation: .0075mCi/kg Pediatric Minimum: 50uCi Pediatric Maximum: 500uCi Reference: #3 Procedure: Abscess Localization Medications for Procedure: Tc-99m HMPAO Leukocytes *Syringes prepped with 2000 units of Heparin added to 10ml of 6% Hetastarch- Approximately 45ml's patient's blood added to the above for labeling Adult Dose: 15-30mCi Pediatric Dose Calculation: .15mCi/kg Pediatric Minimum: 500uCi Pediatric Maximum: 10.5mCi Reference: #3 Procedure: Abscess Localization Medications for Procedure: Ga-67 Citrate Adult Dose: Ga-67 Citrate Pediatric Dose Calculation: .05mCi/kg Pediatric Minimum: .05mCi/kg Pediatric Maximum: .05mCi/kg Reference: .05mCi/kg Procedure: Arthrogram Medications for Procedure: Tc-99m Sulfur Colloid Adult Dose: 1.0mCi Procedure: Blood Pool (Muga/Hepatic Hemangioma/GI Bleed) Medications for Procedure: Tc-99m Ultratag *Syringe prepped with Heparin Lock Flush(concentration of 100 units/ml) volume of ~.1ml used so dose is ~10 units of Heparin for each procedure Adult Dose: 30mCi Pediatric Dose Calculation: .25mCi/kg Pediatric Minimum: 2.5mCi Pediatric Maximum: 17.5mCi Reference: #1 Comments: Used .25mCi/kg for all exams in this category per Nuclear Medicine physicians Procedure: Bone Scan Medications for Procedure: Tc-99m HDP Adult Dose: 20mCi Pediatric Dose Calculation: .25mCi/kg Pediatric Minimum: 1.0mCi Pediatric Maximum: 17.5mCi Reference: #2 Procedure: Bone Scan Medications for Procedure: Tc-99m MDP Adult Dose: 20mCi Pediatric Dose Calculation: .25mCi/kg Pediatric Minimum: 1.0mCi Pediatric Maximum: 17.5mCi Reference: #2 Procedure: Bone Marrow Imaging Medications for Procedure: Tc-99m Sulfur Colloid Adult Dose: 10mCi Pediatric Dose Calculation: .14mCi/kg Pediatric Minimum: 1.0mCi Pediatric Maximum: 10.0mCi Reference: #1 Procedure: Bowel Imaging (Meckel's) Medications for Procedure: Tc-99m Pertechnetate Adult Dose: 10mCi Pediatric Dose Calculation: .05mCi/kg Pediatric Minimum: 250uCi Pediatric Maximum: 3.5mCi Reference: #2 Procedure: Brain (Cerebral flow) Medications for Procedure: Tc-99m Pertechnetate Adult Dose: 20mCi Pediatric Dose Calculation: .28mCi/kg Pediatric Minimum: 4mCi Pediatric Maximum: 20.0mCi Reference: #1 Procedure: Brain (SPECT) Medications for Procedure: Tc-99m HMPAO(Ceretec) Adult Dose: 30mCi Pediatric Dose Calculation: .35mCi/kg Pediatric Minimum: 3mCi Pediatric Maximum: 25.0mCi Reference: #1 Procedure: Brain (DaTscan) Medications for Procedure: Tc-99m Ioflupane (DaTscan) *120 mg Potassium Iodide in 8 Oz. given PO one hour prior to dosing for procedure Adult Dose: 5mCi Procedure: Cisternogram Medications for Procedure: In-111 DTPA Adult Dose: 2mCi Pediatric Dose Calculation: .007mCi/kg Pediatric Minimum: 100uCi Pediatric Maximum: 500uCi Reference: #1 Procedure: Cystogram Medications for Procedure: Tc-99m Sulfur Colloid or MAA Adult Dose: 1.0mCi Procedure: Gastric Empty (Solid) Medications for Procedure: Tc-99m Sulfur Colloid (eggs/oatmeal/formula) Adult Dose: 1.0mCi Pediatric Dose Calculation: NMIS weight based calculation Pediatric Minimum: 250uCi Pediatric Maximum: 1.0mCi Reference: #5 Procedure: Gastro-esophageal Reflux Medications for Procedure: Tc-99m Sulfur Colloid Adult Dose: 1.0mCi Pediatric Dose Calculation: NMIS weight based calculation Pediatric Minimum: 250uCi Pediatric Maximum: 1.0mCi Reference: #5 Procedure: Hepatobiliary With or without EF Medications for Procedure: Tc-99m Mebrofenin *If using CCK (Sincalide) for EF- dose is .02mcg/kg Sincalide prepared using 5 ml Sterile water added to 5 mcg vial of Sincalide Adult Dose: 5.0mCi Pediatric Dose Calculation: .05mCi/kg Pediatric Minimum: 500uCi Pediatric Maximum: 3.5mCi Reference: #2 Procedure: Hepatobiliary With or without EF Medications for Procedure: Tc-99m Mebrofenin *Bilirubin >1.5mg Adult Dose: 8.0mCi Pediatric Dose Calculation: N/A Pediatric Minimum: 1.0mCi * Pediatric Maximum: 1.0mCi * Reference: #2 Procedure: Hepatic Artery Angiography (Sphere Mapping) Medications for Procedure: Tc-99m MAA Adult Dose: 4.0mCi Pediatric Dose Calculation: N/A Procedure: LeVeen Shunt Patency Medications for Procedure: Tc-99m Sulfur Colloid or MAA Adult Dose: 3.0mCi Procedure: Liver/Spleen Imaging Medications for Procedure: Tc-99m Sulfur Colloid Adult Dose: 5.0mCi Pediatric Dose Calculation: .05mCi/kg Pediatric Minimum: 200uCi Pediatric Maximum: 3.5mCi Reference: #1 Procedure: Lymphoscintigraphy (Breast) Medications for Procedure: Tc-99m Sulfur Colloid (filtered) Adult Dose: 250-550uCi Pediatric Dose Calculation: N/A Procedure: Lymphoscintigraphy (Breast) Medications for Procedure: Tc-99m Tilmanocept (Lymphoseek) Adult Dose: 250-550uCi Pediatric Dose Calculation: N/A Procedure: Lymphoscintigraphy (Melanoma) Medications for Procedure: Tc-99m Sulfur Colloid (filtered) Adult Dose: 500uCi Pediatric Dose Calculation: N/A Procedure: Lymphoscintigraphy (Melanoma) Medications for Procedure: Tc-99m Tilmanocept (Lymphoseek) Adult Dose: 500uCi Pediatric Dose Calculation: N/A Procedure: Lymphoscintigraphy (Melanoma/Breast - 24 hr Injection) Medications for Procedure: Tc-99m Sulfur Colloid (filtered) Adult Dose: 1.8mCi Pediatric Dose Calculation: N/A Procedure: Lymphoscintigraphy (Melanoma/Breast - 24 hr Injection) Medications for Procedure: Tc-99m Tilmanocept (Lymphoseek) Adult Dose: 1.8mCi Pediatric Dose Calculation: N/A Procedure: Lymphoscintigraphy (Lymphedema) Medications for Procedure: Tc-99m Tilmanocept (Lymphoseek) *Apply Topical Lidocaine 30 minutes prior to injections using 4% Anesthetic cream to both feet between webbing of 1st and 2nd toes. Tube is 5 grams of 4% lidocaine Adult Dose: 1.0mCi Pediatric Dose Calculation: N/A Comments: Split dose in (2) 1ml syringes ~500uCi/.1ml each Procedure: Metabolic Tumor Imaging Medications for Procedure: FDG-18 Adult Dose: 10-14mCi Pediatric Dose Calculation: .12mCi/kg Pediatric Minimum: 1.0mCi Pediatric Maximum: 8.4mCi Reference: #2 Procedure: Metabolic Tumor Imaging Medications for Procedure: F-18 Na Flouride Adult Dose: 10-15mCi Pediatric Dose Calculation: .06mCi/kg Pediatric Minimum: .5mCi Pediatric Maximum: 4.2mCi Reference: #2 Procedure: Metabolic Tumor Imaging Medications for Procedure: F-18 fluciclovine(Axumin) Adult Dose: 10.0mCi Pediatric Dose Calculation: N/A Procedure: Metabolic Brain Imaging Medications for Procedure: FDG-18 Adult Dose: 6mCi Pediatric Dose Calculation: .10mCi/kg Pediatric Minimum: 1.0mCi Pediatric Maximum: 5.0mCi Reference: #2 Procedure: Myocardial Perfusion Imaging (Same Day Protocol) Medications for Procedure: Tc-99m Tetrofosmin or Sestamibi *Pharmacologic Stress testing using 0.4mg Lexiscan (regadenoson) for all Myocardial Perfusion protocols Adult Dose: 10mCi (Rest) 30mCi(Stress) *8.0mCi(Rest) *24.0mCi(Stress) Pediatric Dose Calculation: .07mCi/kg, .28mCi/kg Pediatric Minimum: ---, --- Pediatric Maximum: 6.0mCi, 24.0mCi Reference: #1 Comments: *Only used during periods of Tc 99m shortages Procedure: Myocardial Perfusion Imaging (2 day protocol) Day 1(Rest) Day 2(Stress) Medications for Procedure: Tc-99m Tetrofosmin or Sestamibi Adult Dose: 20mCi(Rest), 30mCi(Stress) Pediatric Dose Calculation: .07mCi/kg, .28mCi/kg Pediatric Minimum: ---, --- Pediatric Maximum: 6.0mCi, 24.0mCi Reference: #1 Procedure: Myocardial Perfusion Imaging (Same Day Weight Based Dosing) Medications for Procedure: Tc-99m Tetrofosmin or Sestamibi Adult Dose: Up to 220lbs 10mCi (Rest) 30mCi (Stress) 220-285lbs 13mCi (Rest) 39mCi (Stress) 286-351lbs 16mCi (Rest) 48mCi (Stress) 352lbs and > 19mCi (Rest) 57mCi (Stress) Pediatric Dose Calculation: N/A Procedure: Myocardial Perfusion Imaging (Same Day Weight Based Dosing) Medications for Procedure: Tl-201 Thallous Chloride Adult Dose: 3.25mCi Pediatric Dose Calculation: .035mCi/kg Pediatric Maximum: 2.5mCi Reference: #1 Procedure: Myocardial Infarction Imaging Medications for Procedure: Tc-99m Pyrophosphate Adult Dose: 25.0mCi Pediatric Dose Calculation: N/A Procedure: Parathyroid Imaging Medications for Procedure: Tc-99m Sestamibi Adult Dose: 20.0mCi Pediatric Dose Calculation: .28mCi/kg Pediatric Minimum: 2.0mCi Pediatric Maximum: 20.0mCi Reference: #1 Procedure: Pulmonary Perfusion Imaging Medications for Procedure: Tc-99m MAA Adult Dose: 6.0mCi Pediatric Dose Calculation: .03mCi/kg Pediatric Minimum: 400uCi Pediatric Maximum: 2.1mCi Reference: #2 Procedure: Pulmonary Perfusion Imaging (Pumlonary HTN or Right to Left Shunts) Medications for Procedure: Tc-99m MAA Adult Dose: 1-2.5mCi in max of .2ml volume Pediatric Dose Calculation: N/A Procedure: Pulmonary Perfusion Imaging ( Patients - All Trimesters) Medications for Procedure: Tc-99m MAA Adult Dose: 3.0mCi Pediatric Dose Calculation: N/A Procedure: Pulmonary Ventilation Imaging Medications for Procedure: Xe-133 Gas Adult Dose: 10-30mCi Pediatric Dose Calculation: Adult dose Procedure: Pulmonary Ventilation Imaging Medications for Procedure: Tc-99m DTPA Adult Dose: 35mCi Pediatric Dose Calculation: Adult dose Procedure: Renal Imaging (Cortical) Medications for Procedure: Tc-99m DMSA Adult Dose: 5mCi Pediatric Dose Calculation: .05mCi/kg Pediatric Minimum: 500uCi Pediatric Maximum: 3.5mCi Reference: #2 Procedure: Renal Imaging (Function/ Lasix) Medications for Procedure: Tc-99m MAG 3 *(Lasix IV) 0.5 mg/kg in the adult patient using a minimum of 40 mg and a maximum of 80 mg. The dose for infants (0-1yr. old) is 1mg/kg. The dose for a child (1-16yr. old) is 0.5mg/kg, without a minimum Adult Dose: 10mCi Pediatric Dose Calculation: .15mCi/kg Pediatric Minimum: 500uCi Pediatric Maximum: 10.0mCi Reference: #2 Procedure: Thyroid Uptake/Imaging Medications for Procedure: I-123 Sodium Iodide capsules or solution Adult Dose: 200-500uCi Pediatric Dose Calculation: 5uCi/kg Pediatric Minimum: 50uCi Pediatric Maximum: 250uCi Reference: #4 Procedure: Thyroid Uptake/Imaging Medications for Procedure: I-131 Sodium Iodide Solution (uptake only) Adult Dose: 5-10uCi Pediatric Dose Calculation: N/A Procedure: Thyroid Uptake/Imaging Medications for Procedure: Tc-99m Pertechnetate (scan only) Adult Dose: 10mCi Pediatric Dose Calculation: .14mCi/kg Pediatric Minimum: 1.0mCi Pediatric Maximum: 10.0mCi Reference: #1 Procedure: Tumor Localization Imaging Medications for Procedure: Ga-67 Citrate Adult Dose: 10mCi Pediatric Dose Calculation: .14mCi/kg Pediatric Maximum: 10.0mCi Reference: #1 Procedure: Tumor Localization Imaging Medications for Procedure: In-111 Capromab Pendetide(Prostascint) Adult Dose: 6.0mCi Pediatric Dose Calculation: N/A Procedure: Tumor Localization Imaging (MIBG Scans) Medications for Procedure: I-123 Metaiodobenzylguanidine (MIBG) *120 mg Potassium Iodide in 8 Oz. given PO one hour prior to dosing for procedure Adult Dose: 10mCi Pediatric Dose Calculation: .14mCi/kg Pediatric Minimum: 1.0mCi Pediatric Maximum: 10.0mCi Reference: #2 Procedure: Tumor Localization Imaging (MIBG Scans) Medications for Procedure: I-131Metaiodobenzylguanidine (MIBG) *120 mg Potassium Iodide in 8 Oz. given PO one hour prior to dosing for procedure Adult Dose: 1.0mCi Pediatric Dose Calculation: N/A Procedure: Tumor Localization Imaging Medications for Procedure: In-111 Pentetreotide (Octreoscan) Adult Dose: 6.0mCi Pediatric Dose Calculation: .08mCi/kg Pediatric Maximum: 6.0mCi Reference: #1 Procedure: Tumor Localization Imaging Medications for Procedure: I-131 Sodium Iodide Adult Dose: 5.0mCi Pediatric Dose Calculation: N/A Procedure: Tumor Localization Imaging Medications for Procedure: I-123 Sodium Iodide Adult Dose: 1.5-2.0mCi Pediatric Dose Calculation: .028mCi/kg Reference: No reference information Procedure: Venogram (Upper/Lower Extremities) Medications for Procedure: Tc-99m Ultratag *Syringe prepped with Heparin Lock Flush(concentration of 100 units/ml) volume of ~.1ml used so dose is ~10 units of Heparin for each procedure Adult Dose: 30mCi Pediatric Dose Calculation: N/A Procedure: Ventricular Shunt Imaging Medications for Procedure: Tc-99m DTPA Adult Dose: 1.0mCi Pediatric Dose Calculation: N/A References for Pediatric Administration: Nuclear Medicine Procedure Manual, Division of Nuclear Medicine, [facility] [place] [facility]; gamma.[facility]/[email or web address].html [place] Consensus Guidelines for Administered Radiopharmaceutical Activities in Children andAdolescents; http://interactive.snm.org/docs/Pediatric dose consensus guidelines Final 2010.pdf ACR-SNM-SPR Practice guideline for the performance of Scintigraphy for inflammation and infection; www/acr.org.guidelines. Revised 2009 9.1 Brandi ROXANA, Arlin WC, Rafael RD. Nuclear Medicine Diagnosis and Therapy. [employer]1996. Chapter 37, page 930, Table 1. Pediatric weight/dose database file NMIS system: Pediatric Dose = Adult dose (mCi) x Dose Factor Range of Weight (lbs) Dose Factor (%) 0.00-5.00 10 5.01-10.00 10 10.01-15.00 16 15.01-20.00 21 20.01-25.00 25 25.01-30.00 30 30.01-40.00 34 40.01-50.00 41 50.01-60.00 48 60.01-70.00 54 70.01-80.00 61 80.01-90.00 67 90.01-100.00 72 100.01-110.00 78 110.01-120.00 83 120.01-130.00 88 130.01-140.00 94 140.01-142.00 99 142.01-150.00 100 Attention: Any exam, radiopharmaceutical or dosage not included on this list requires physician approval and a written prescription Approved by: Medical Executive Committee and Imaging Services documented in this encounter H&P Notes * Al Kapadia MD - 10/29/2024 6:30 AM CDT RADIOLOGY HISTORY AND PHYSICAL History: Chief complaint: R flank pain, stones and hydro despite JJ stent. Procedure Scheduled: US and fluoro guided R PCN placement BP (!) 151/57 (BP Location: Right arm, Patient Position (BP): Supine) Pulse 68 Temp 97.1 ??F (36.2 ??C) (Temporal) Resp 18 Ht 5' 2 (1.575 m) Wt 99.8 kg (220 lb) SpO2 97% BMI 40.24 kg/m?? NPO status: NPO since midnight Past Medical/Surgical/Social/Family History: Past Medical History: Diagnosis Date Clostridium difficile enterocolitis 2023 Diabetes mellitus type II(CMS/HCC) Endometrial cancer (CMS/HCC) Hodgkin's lymphoma (CMS/HCC) Kidney stones Non-Hodgkin lymphoma (CMS/HCC) Septicemia (CMS/HCC) Twice in 2023 Stroke (CMS/HCC) 04/2024 Past Surgical History: Procedure Laterality Date HX HYSTERECTOMY HX LAP CHOLECYSTECTOMY GA CYSTO W/INSERT URETERAL STENT Bilateral 09/23/2024 CYSTOURETHROSCOPY BILATERAL URETERAL STENT EXCHANGE performed by Omid Carroll MD at [facility] KYLE GA CYSTO W/INSERT URETERAL STENT Bilateral 10/19/2024 CYSTOURETHROSCOPY URETERAL STENT EXCHANGE performed by Omid Carroll MD at [facility] MAIN OR Social History Tobacco Use Smoking status: Former Current packs/day: 0.00 Types: Cigarettes Quit date: 1980 Years since quittin.6 Smokeless tobacco: Not on file Substance Use Topics Alcohol use: Never No family history on file. REVIEW OF SYSTEMS Respiratory: Negative for cough and shortness of breath. Cardiovascular: Negative for chest pain and palpitations. Gastrointestinal: Negative for abdominal pain, diarrhea, nausea and vomiting. Psychiatric/Behavioral: Negative for confusion. Current Medications and Allergies: Current Outpatient Medications on File Prior to Encounter Medication Sig Dispense Refill glyBURIDE (DIABETA) 1.25 mg tablet Take 1 Tablet (1.25 mg) by mouth daily with breakfast. Hold if blood sugar is below 120. 100 Tablet 3 vancomycin (VANCOCIN) 125 mg Capsule Take 1 Capsule (125 mg) by mouth daily for 10 days. 10 Capsule0 HYDROcodone-acetaminophen (NORCO) 5-325 mg tablet Take 1 Tablet by mouth every 8 hours as needed for Pain, Moderate or Pain, Severe. Max Daily Amount: 3 Tablets 10 Tablet 0 levothyroxine 88 mcg tablet Take 88 mcg by mouth daily in the morning. metoprolol succinate (TOPROL XL) 50 mg Extended Release 24 hour tablet Take 50 mg by mouth daily. hydrALAZINE (APRESOLINE) 25 mg tablet Take 25 mg by mouth every 12 hours. tamsulosin (FLOMAX) 0.4 mg capsule Take 0.4 mg by mouth daily. ferrous fumarate (FERRETTS) 325 mg (106 mg iron) Tablet Take 325 mg by mouth. aspirin (ECOTRIN EC) 81 mg Tablet, Delayed Release (E.C.) Take 81 mg by mouth daily. atorvastatin calcium (ATORVASTATIN ORAL) Take 40 mg by mouth daily. Unsure dosage HYDROcodone-acetaminophen (NORCO) 5-325 mg tablet Take 1 Tablet by mouth every 6 hours as needed for Pain. Max Daily Amount: 4 Tablets 10 Tablet 0 conjugated estrogens (PREMARIN) 0.625 mg/gram vaginal cream Insert 0.5 Grams vaginally daily at bedtime. 30 Gram 2 L. acidophilus/pectin, citrus (ACIDOPHILUS-PECTIN, CITRUS ORAL) Take by mouth. No current facility-administered medications on file prior to encounter. Allergies Allergen Reactions Ciprofloxacin Swelling and Rash Latex Rash Adhesive Tape-Silicones Rash Objective: Patient examined. Airway Assessment: Short/fat neck: No Short chin No Protruding upper teeth No Neck full ROM Yes Mouth opens>2 fingers Yes ASA: ASA 3 - Patient with moderate systemic disease with functional limitations BP (!) 151/57 (BP Location: Right arm, Patient Position (BP): Supine) Pulse 68 Temp 97.1 ??F (36.2 ??C) (Temporal) Resp 18 Ht 5' 2 (1.575 m) Wt 99.8 kg (220 lb) SpO2 97% BMI 40.24 kg/m?? Lungs: clear to auscultation bilaterally, normal respiratory effort Heart: regular rate and rhythm, S1, S2 normal, no murmur, click, rub or gallop Mental status: A&O x3 Data Review: Recent Labs 10/29/24 0641 WBC 7.8 HGB 9.5* HCT 30.4* PLT 105* Lab Results Component Value Date PT 14.4 10/29/2024 INR 1.1 10/29/2024 Plan/Impression: Impression: 1. R flank pain, stones and hydro despite JJ stent. Plan: 1. US and fluoro guided R PCN placement The procedure including the purpose and benefits, were discussed in detail with the patient and/or healthcare decision maker. The risks were all discussed in detail to include, but not limited to, bleeding , infection, injury to adjacent structures, inability to complete the procedure, and need forfurther intervention. All Questions were answered, and the decision was made to proceed with the procedure. Al Kapadia MD 10/29/24 7:35 AM documented in this encounter Plan of Treatment Upcoming Encounters Date Type Department Care Team (Late st Contact Info) Description 11/06/2024 12:00 PM CDT Appointment [facility] [address] [phone] 11/06/2024 1:00 PM CDT Office Visit [facility] [place] [address] [facility] [address] [place] [address] Cruz Mckinney MD [address] [place] [address] 12/18/2024 3:30 PM CDT Office Visit [address] [place] [phone] Seema Damon, DIRECTOR TELECOMMUNICATIONS [address] [place] [address] [place] [phone] documented as of this encounter Procedures Procedure Name Priority Date/Time Associated Diagnosis Comments IR TUBE PLACEMENT Routine 10/29/2024 8:1 3 AM CDT Hydronephrosis, unspecified hydronephrosis type PROTIME-INR Routine 10/29/2024 6:41 AM CDT CBC WITHOUT DIFFERENTIAL Stat 10/29/2024 6:41 AM CDT documented in this encounter Results * IR TUBE PLACEMENT (10/29/2024 8:13 AM CDT) Anatomical Region Laterality Modality X-Ray Angiograph y 10/29/2024 8:14 AM CDT Impressions 10/29/2024 1:13 PM CDT IMPRESSION: Please see below. Exam: Ultrasound and fluoroscopic-guided right percutaneous nephrostomy tube placement 1. Ultrasound guided micropuncture access of a posterior superior right renal calyx 2. Antegrade pyelogram 3. Placement of a right 8 Latvian nephrostomy tube Date/Time of Exam: 10/29/2024 8:13 AM REASON FOR EXAM: See Diagnosis. DIAGNOSIS: Hydronephrosis, unspecified hydronephrosis type. Medications: Fentanyl and versed were titrated to effect. Rocephin 1 g IV Moderate (conscious) sedation for this procedure was performed with continuous physician supervision. Medical history, physical exam, drug dosages, routes of drug administration, monitoring data, and precise times of service are documented in the medical record on the [facility]-approved form, 'Sedative/Analgesic Administration for Diagnostic and Therapeutic Procedures'. Please see nursing flow sheets for dosage and time. Sedation was administered by a trained independent observer. I personally supervised 30 minutes of sedation. Contrast: 5 ml Isovue-300 Fluoroscopy time: 0.8 minutes Estimated Blood Loss: Minimal Complications:None Implantable Devices: 8 Latvian nephrostomy tube Procedure: After informed consent was obtained from the patient, the patient was taken to the angiography suite and placed prone on the angiography table. The patient's right flank was prepped and draped in sterile fashion. A timeout was performed. The skin overlying the posterior superior left kidney was anesthetized with lidocaine. A tiny dermatotomy was made with the lumbar table. Under direct ultrasound guidance, a 21-gauge micropuncture needle was introduced into the posterior superior calyx just cranial to the 11th rib. A 0.018 inch microwire was advanced and the needle was then exchanged for the transitional dilator. An antegrade pyelogram was performed. A 0.0 58 inch J-wire was advanced through the transitional dilator into the proximal ureter and a transitional dilator was exchanged for an 8 Latvian nephrostomy tube. The cope loop was formed in renal pelvis and contrast injection confirmed satisfactory position. The catheter was secured in place with 2-0 Ethilon and attached to a gravity drain bag. A sterile bandage was applied. The patient left the angiography suite in good condition. Findings: 1. Ultrasound guided micropuncture access of a posterior superior right renal calyx demonstrates mild hydronephrosis and an indwelling double-J ureteral stent, with some renal calculi. Needle entry was documented and sent to PACS. Of note, the kidney is somewhat anteverted. 2. Antegrade pyelogram demonstrates moderate hydronephrosis. 3. Placement of a right 8 Latvian nephrostomy tube with the cope loop formed in the renal pelvis. IMPRESSION: Successful ultrasound and fluoroscopic-guided placement of a right 8 Latvian nephrostomy tube as above. Narrative Procedure Note Al Kapadia MD - 10/29/2024 IMPRESSION: Please see below. Exam: Ultrasound and fluoroscopic-guided right percutaneous nephrostomy tube placement 1. Ultrasound guided micropuncture access of a posterior superior right renal calyx 2. Antegrade pyelogram 3. Placement of a right 8 Latvian nephrostomy tube Date/Time of Exam: 10/29/2024 8:13 AM REASON FOR EXAM: See Diagnosis. DIAGNOSIS: Hydronephrosis, unspecified hydronephrosis type. Medications: Fentanyl and versed were titrated to effect. Rocephin 1 g IV Moderate (conscious) sedation for this procedure was performed with continuous physician supervision. Medical history, physical exam, drug dosages, routes of drug administration, monitoring data, and precise times of service are documented in the medical record on the [facility]-approved form, 'Sedative/Analgesic Administration for Diagnostic and Therapeutic Procedures'. Please see nursing flow sheets for dosage and time. Sedation was administered by a trained independent observer. I personally supervised 30 minutes of sedation. Contrast: 5 ml Isovue-300 Fluoroscopy time: 0.8 minutes Estimated Blood Loss: Minimal Complications:None Implantable Devices: 8 Latvian nephrostomy tube Procedure: After informed consent was obtained from the patient, the patient was taken to the angiography suite and placed prone on the angiography table. The patient's right flank was prepped and draped in sterile fashion. A timeout was performed. The skin overlying the posterior superior left kidney was anesthetized with lidocaine. A tiny dermatotomy was made with the lumbar table. Under direct ultrasound guidance, a 21-gauge micropuncture needle was introduced into the posterior superior calyx just cranial to the 11th rib. A 0.018 inch microwire was advanced and the needle was then exchanged for the transitional dilator. An antegrade pyelogram was performed. A 0.0 58 inch J-wire was advanced through the transitional dilator into the proximal ureter and a transitional dilator was exchanged for an 8 Latvian nephrostomy tube. The cope loop was formed in renal pelvis and contrast injection confirmed satisfactory position. The catheter was secured in place with 2-0 Ethilon and attached to a gravity drain bag. A sterile bandage was applied. The patient left the angiography suite in good condition. Findings: 1. Ultrasound guided micropuncture access of a posterior superior right renal calyx demonstrates mild hydronephrosis and an indwelling double-J ureteral stent, with some renal calculi. Needle entry was documented and sent to PACS. Of note, the kidney is somewhat anteverted. 2. Antegrade pyelogram demonstrates moderate hydronephrosis. 3. Placement of a right 8 Latvian nephrostomy tube with the cope loop formed in the renal pelvis. IMPRESSION: Successful ultrasound and fluoroscopic-guided placement of a right 8 Latvian nephrostomy tube as above. us Omid Carroll MD IR ORDERABLES Final Result * PROTIME-INR (10/29/2024 6:41 AM CDT) PROTIME 14.4 12.7 - 14.9 Seconds 10/29/2024 7:11 AM CDT [facility] INR 1.1 0.8 - 1.2 10/29/2024 7:11 AM T [facility] Blood Venipuncture / Unknown 10/29/2024 6:41 AM CDT 10/29/2024 6:59 AM CDT [facility] - 10/29/2024 7:11 AM CDT Expected Values for INR: DVT/PE Goal INR 2.5; range 2.0 - 3.0 Valve Replacement Tissue Goal INR 2.5; range 2.0 - 3.0 Valve Replacement Mechanical Goal INR 3.0; range 2.5 - 3.5 POST-MO Goal INR 2.5; range 2.0 - 3.0 or Goal INR 3.0; range 2.5 - 3.5 Atrial Fibrillation Goal INR 2.5; range 2.0 - 3.0 Ischemic Stroke Goal INR 2.5; range 2.0 - 3.0 Al Kapadia MD HEMATOLOGY ORDERABLES Final Result [facility] CLIA # [id number] [address] [place] [phone] * (ABNORMAL) CBC WITHOUT DIFFERENTIAL (10/29/2024 6:41 AM CDT) Pathologist [facility] WBC 7.8 4.8 - 10.8 K/uL 10/29/2024 7:13 AM T [facility] RBC 3.25(L) 4.20 - 5.40 M/uL 10/29/2024 7:13 AM T [facility] HEMOGLOBIN 9.5(L) 12.0 - 16.0 g/dL 10/29/2024 7:13 AM T [facility] HEMATOCRIT 30.4(L) 36.0 - 46.0 % 10/29/2024 7:13 AM T [facility] MCV 93.5 84.0 - 103.0 fL 10/29/2024 7:13 AM T [facility] MCH 29.2 27.0 - 34.0 pg 10/29/2024 7:13 AM T [facility] MCHC 31.3 30.0 - 35.0 g/dL 10/29/2024 7:13 AM T [facility] PLATELETS 105(L) 140 - 440 K/uL 10/29/2024 7:13 AM CDT [facility] MPV 11.7 8.9 - 12.8 fL 10/29/2024 7:13 AM T [facility] RDW 13.9 11.0 - 14.5 % 10/29/2024 7:13 AM [facility] RDW-STDEV 46.6 37.0 - 54.0 fL 10/29/2024 7:13 AM [facility] Blood Venipuncture / Unknown 10/29/2024 6:41 AM CDT 10/29/2024 6:59 AM CDT Al Kapadia MD HEMATOLOGY ORDERABLES Final Result Performing Organization Address City/State/[facility] Co de Phone Number [facility] CLIA # [id number] [address] [place] [phone] documented in this encounter Visit Diagnoses Diagnosis Hydronephrosis, unspecified hydronephrosis type History of non-Hodgkin's lymphoma- Primary Personal history of other lymphatic and hematopoietic neoplasm documented in this encounter Administered Medications Inactive Administered Medications - up to 3 most recent administrations Medication Order MAR Action Action Date Dose Rate Site cefTRIAXone (ROCEPHIN) 1,000 mg in sodium chloride 0.9% 50 mL IVPB (MBP) 1,000 mg, IV, ONE TIME ONLY, 1 dose, On Sharlene 10/29/24 at 0715, Routine, IntraProcedure (IR), Antibiotic Indication: Surgical prophylaxis New Bag 10/29/2024 7:44 AM CDT 1,000 mg 118 mL/hr dextrose 5% - sodium chloride 0.45% infusion IV, at 100 mL/hr, ONE TIME ONLY, 1 dose, On Sharlene 10/29/24 at 0715, Routine, IntraProcedure (IR) New Bag 10/29/2024 7:43 AM CDT 100 mL/hr fentaNYL PF (SUBLIMAZE) 50 mcg/mL injection 100 mcg 100 mcg, IV, ONE TIME ONLY, 1 dose, On Sharlene 10/29/24 at 0815, Routine Given 10/29/2024 8:12 AM CDT 100 mcg HYDROcodone-acetaminoph en (NORCO) 5-325 mg per tablet 1 Tablet 1 Tablet, Oral, EVERY 4 HOURS PRN, Starting on Sharlene 10/29/24 at 0820, Until Sat10/30/24 at 0231, Pain (See admin instructions), Routine, Post-Procedure (IR) Given 10/29/2024 8:43 AM CDT 1 Tablet iopamidoL (ISOVUE-300) 61% injection (single-use vial) 30 mL 30 mL, See Admin Instructions, INTRA-PROCEDURE ONCE, 1 dose, Starting on Sharlene 10/29/24 at 0745, Until Sharlene 10/29/24 at 0812, Routine Contrast Given 10/29/2024 8:12 AM CDT 5 mL Back, Right lidocaine PF 1% (XYLOCAINE MPF) injection 30 mL 30 mL (300 mg), Infiltration, ONE TIME ONLY, 1 dose, On Sharlene 10/29/24 at 0715, Routine Admin by Another Clinician (Comment) 10/29/2024 7:15 AM CDT 30 mL midazolam (VERSED) injection 2 mg 2 mg, IV, ONE TIME ONLY, 1 dose, On Sharlene 10/29/24 at 0815, Routine Given 10/29/2024 8:12 AM CDT 2 mg sodium chloride flush injection 10 mL 10 mL, IV, SEE ADMIN INSTRUCTIONS, Starting on Sharlene 10/29/24 at 0624, Until Sat10/30/24 at 0231, Stat Given 10/29/2024 8:12 AM CDT 10 mL Admin by Another Clinician (Comment) 10/29/2024 7:01 AM CD T 10 mL documented in this encounter Additional Health Concerns Assessment Noted Time PHQ-9 Depression Total Score: 1 10/01/19 25 8:59 AM CDT documented as of this encounter Care Teams Mortgage Protection Sales Relationship Specialty Start Date End Date Jimmy Caballero DO [address] [place] [phone] PCP - General Family Practice 09/30/24 documented as of this encounter
--- OUTSIDE RECORDS SUMMARY | 2024-10-29 07:30 | XMS_ITS | Encounter Summary ---
Author Organization [facility] Address [address] [place] [address] Care Team Providers Care Peanut Sorter Name Role Phone Jimmy Caballero DO Primary Care Provider [phone] Reason for Referral * Radiology Services (Routine) - Open Specialty Diagnoses / Procedures Referred By Preeti mckeon Referred To Contact Diagnoses Hydronephrosis, unspecified hydronephrosis type Procedures US GUIDE NEEDLE PLACEMENT Omid Carroll MD [address] [place] [phone] Phone: tel: fax: Referral ID Status Reason Start Date Expiration Date Visits Re quested Visits Authorized [id number] Open 10/26/2024 11/26/2025 1 1 Reason for Visit * Radiology Services (Routine) - Open Specialty Diagnoses / Procedures Referred By Preeti mckeon Referred To Contact Diagnoses Hydronephrosis, unspecified hydronephrosis type Procedures US GUIDE NEEDLE PLACEMENT Omid Carroll MD [address] [address] Phone: tel: fax: Referral ID Status Reason Start Date Expiration Date Visits Re quested Visits Authorized [id number] Open 10/26/2024 11/26/2025 1 1 Encounter Details Date Type Department Care Team (Latest Contact Info) Description 10/29/2024 7:30 AM CDT - 10/29/2024 11:59 PM CDT Hospital Encounter [facility] Ultrasound [address] [place] [phone] Omid Carroll MD 1967 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 Max Daily Amount: 4 Tablets 10 Tablet 10/28/2024 glyBURIDE (DIABETA) 1.25 mg tabletIndication s:Type 2 diabetes mellitus with diabetic neuropathy, without long-term current use of insulin ([facility]) Take 1 Tablet (1.25 mg) by mouth [...] daily for 10 days. 10 Capsule 10/21/2024 documented as of this encounter Plan of Treatment Upcoming Encounters Date Type Department Care Team (Late st Contact Info) Description 11/06/2024 12:00 PM CDT Appointment [facility] Laboratory Services [address] [phone] 11/06/2024 1:00 PM CDT Office Visit [facility] [place] [address] [phone] Cruz Mckinney MD [address] [phone] 12/18/2024 3:30 PM CDT Office Visit [facility] Family Medicine- [address] [place] [address] Seema Damon NP [address] [place] [phone] documented as of this encounter Procedures Procedure Name Priority Date/Time Associated Diagnosis Comments US GUIDE NEEDLE PLACEMENT Routine 10/29/2024 8:52 AM CDT Hydronephrosis, unspecified hydronephrosis type documented in this encounter Results * US GUIDE NEEDLE PLACEMENT (10/29/2024 8:52 AM CDT) Anatomical Region Laterality Modality Ultrasound 10/29/2024 8:53 AM CDT Impressions 10/29/2024 1:23 PM CDT IMPRESSION: Please see below. Exam: Ultrasound and fluoroscopic-guided right percutaneous nephrostomy tube placement 1. Ultrasound guided micropuncture access of a posterior superior right renal calyx 2. Antegrade pyelogram 3. Placement of a right 8 [place] nephrostomy tube Date/Time of Exam: 10/29/2024 8:13 [...] documented in the medical record on the [facility]-approved form, 'Sedative/Analgesic Administration for Diagnostic and Therapeutic Procedures'. Please see nursing flow sheets for dosage and time. Sedation was administered by a trained independent observer. I personally supervised 30 minutes of sedation. Contrast: 5 ml Isovue-300 Fluoroscopy time: 0.8 minutes Estimated Blood Loss: Minimal Complications:None Implantable Devices: 8 [place] nephrostomy tube Procedure: After informed consent was [...] transitional dilator was exchanged for an 8 [place] nephrostomy tube. The cope loop was formed [...] hydronephrosis. 3. Placement of a right 8 [place] nephrostomy tube with the cope loop formed in the renal pelvis. IMPRESSION: Successful ultrasound and fluoroscopic-guided placement of a right 8 [place] nephrostomy tube as above. Narrative 10/29/2024 1:23 PM CDT Procedure Note Al Kapadia MD - 10/29/2024 IMPRESSION: Please see below. Exam: Ultrasound and fluoroscopic-guided right percutaneous nephrostomy tube placement 1. Ultrasound guided micropuncture access of a posterior superior right renal calyx 2. Antegrade pyelogram 3. Placement of a right 8 [place] nephrostomy tube Date/Time of Exam: 10/29/2024 8:13 [...] documented in the medical record on the [facility]-approved form, 'Sedative/Analgesic Administration for Diagnostic and Therapeutic Procedures'. Please see nursing flow sheets for dosage and time. Sedation was administered by a trained independent observer. I personally supervised 30 minutes of sedation. Contrast: 5 ml Isovue-300 Fluoroscopy time: 0.8 minutes Estimated Blood Loss: Minimal Complications:None Implantable Devices: 8 [place] nephrostomy tube Procedure: After informed consent was [...] transitional dilator was exchanged for an 8 [place] nephrostomy tube. The cope loop was formed [...] hydronephrosis. 3. Placement of a right 8 [place] nephrostomy tube with the cope loop formed in the renal pelvis. IMPRESSION: Successful ultrasound and fluoroscopic-guided placement of a right 8 [place] nephrostomy tube as above. us Oimd Carroll MD US ORDERABLES Final Result documented in this encounter Visit Diagnoses Diagnosis Hydronephrosis, unspecified hydronephrosis type History of non-Hodgkin's lymphoma- Primary Personal history of other lymphatic and hematopoietic neoplasm documented in this encounter Additional Health Concerns Assessment Noted Time PHQ-9 Depression Total Score: 1 10/01/19 8:59 AM CDT documented as of this encounter Care Teams Peanut Sorter Relationship Specialty Start Date End Date Jimmy Caballero DO [address] [place] [phone] PCP - General Family Practice 09/30/24 documented as of this encounter
[2024-11-01 14:13] VITALS: PULSE 64; RESP 16; TEMP 36.7; O2SAT 97
--- OUTSIDE RECORDS SUMMARY | 2024-11-01 14:22 | XMS_ITS | Patient Health Record ---
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 Name Role Phone Celia Louis Primary Care Provider MAEVE Powell Unavailable [phone] ZABRINA FINCH Unavailable [phone] Rosalino Simmons Unavailable [phone] Allergies Allergen (clinical drug ingredient) Drug/Non Drug Allergy documented on EMR Reaction Allergy Type Onset Date Status Ciprofloxacin Unknown Drug Allergy Act daljit Latex Latex Unknown Allergy Active Results Component Value Reference Range Notes zzzAbdomen AP Reviewed date:09/10/2024 07:53:37 AM Interpretation: Performing Lab: Notes/Report: See Below For Report Abdomen AP Read See Below For Report CBC w/ Auto Diff Reviewed date:09/16/2024 04:20:43 PM Interpretation: Performing Lab: Notes/Report: Testing performed at: [address] [place] [address] CLIA ID [id number] WBC 8.9 4.5-11.0 X10'3 RBC 3.43 4.00-5.20 X10'6 Hgb 9.9 12.0-16.0 G/DL Hct 32.0 36.0-46.0 % MCV 93.3 80.0-100.0 FL MCH 28.9 27.0-31.0 PG MCHC 30.9 31.0-37.0 G/DL Platelet 128 150-400 X10'3 RDW-SD 47.1 35.0-49.0 FL RDW-CV 13.6 12.2-15.6 % MPV 12.1 9.2-12.0 FL Neutro Auto% 33.3 40.0-70.0 % Lymph Auto% 43.8 22.0-44.0 % Ellsworth Auto% 21.7 3.0-7.0 % Eos Auto% .7 2.0-4.0 % Baso Auto% 0.2 0.0-1.0 % Imm Gran% .3 .0-.4 % Neutro Abs 2.97 .80-7.70 Absolute Neutrophil Count 2970 Lymph Abs 3.91 .10-4.10 Ellsworth Abs 1.94 .20-1.00 Eos Abs .06 .00-.40 Baso Abs .02 .00-.20 Imm Gran Abs .03 .00-.10 NRBC# .00 .00-.20 X10'3 NRBC% .00 .00-.20 /100 intact WBC's Basic Metabolic Panel Reviewed date:09/16/2024 04:20:49 PM Interpretation: Performing Lab: Notes/Report: Testing performed at [facility], [address] [place] [address] [place] [address]. CLIA ID#: [id number] B-prfpvi-g-benzoquinone imine (NAPQI) is a metabolite of acetaminophen, [...] Equation(2020) to estimate GFR. Testing performed at: [address] [place] [address] CLIA ID [id number] Use of this assay is not recommended [...] 8.7-10.4 MG/DL Osmo Serum,Calculated 301 280-300 MOSM/KG US Renal w/bladder--[id number] Reviewed date:09/10/2024 07:53:37 AM Interpretation: Performing Lab: Notes/Report: See Below For Report US Renal w/bladder Read See Below For Report CULTURE, URINE, ROUTINE (395 ) Reviewed date:09/14/2024 09:02:56 AM Interpretation: Performing Lab:[place], [employer]-[id number] Viktoriya Adams, [id number] Amrita Talbot MD Notes/Report: NON-FASTING CULTURE, URINE, ROUTINE SEE NOTE CULTURE, URINE, ROUTINE Micro Number: [id number] Test Status: Final Specimen Source: Not given [...] comments based on your area of interest: [employer] ([phone]) E.coli INT KAREEM AMOX/CLAVULANATE R >=32 AMP/SULBACTAM [...] INCORRECT, PLEASE CONTACT CLIENT SERVICES. PHONE NUMBER: [phone] Urinalysis, Routine Reviewed date:09/09/2024 02:39:58 PM Interpretation: Performing Lab: Notes/Report: Urine-Color pale yellow Appearance cloudy Glucose - Bilirubin - Ketones - Specific [place]athrop 1.000 Occult Blood 2+ pH 7.0 Urine Protein +- Urobilinogen,Semi-Qn - Nitrite, Urine - WBC Esterase 3+ Urinalysis, Routine Reviewed date:03/03/2024 02:18:02 PM Interpretation: Performing Lab: Notes/Report: Urine-Color yellow Appearance cloudy Glucose trace Bilirubin - Ketones - Specific [place] 1.010 Occult Blood 3+ pH 7.5 Urine Protein 2+ Urobilinogen,Semi-Qn - Nitrite, Urine positive WBC Esterase 3+ Urinalysis, Routine Reviewed date:11/18/2023 02:16:06 PM Interpretation: Performing Lab: Notes/Report: Urine-Color yellow Appearance cloudy Glucose - Bilirubin - Ketones - Specific [place] 1.015 Occult Blood 3+ pH 7.0 Urine Protein 2+ Urobilinogen,Semi-Qn - Nitrite, Urine postive WBC Esterase 3+ zzzRetrograde Urography Reviewed date:12/31/2023 09:15:05 PM Interpretation: Performing Lab: Notes/Report: See Below For Report Retrograde Urography BG 221 @0120, pt states had c-diff multiple times. bm in urine. no sample yet. 3516 @ 0150 Read See Below For Report Culture Urine Reflex Reviewed date:07/09/2024 02:39:19 PM Interpretation: Performing Lab: Notes/Report: Testing performed at: [place] [address] CLIA ID [id number] Culture Urine Reflex SHE Plascencia Culture Urine Reflex t: Culture Urine Reflex Culture Urine Reflex Accessio [id number] Culture Urine Reflex n: Culture Urine Reflex [...] Performing Lab: Notes/Report: Micro UA ordered by English Helper Expert Rules system. RBC U 11 WBC U >999 0-5 /HPF Bacteria 3+ Hyaline Casts 3 SQ EPI 2 Testing perform ed at: [address] [place] [address] CLIA ID [id number] Basic Metabolic Panel Reviewed date:07/06/2024 02:00:16 PM Interpretation: Performing Lab: Notes/Report: Use of this assay is not recommended for patients undergoing treatment with phenindione, due to the potential for falsely depressed results. Testing performed at: [address] [place] [address] CLIA ID [id number] Calculation performed from GFR calculator provided by the [employer]. Glomerular Filtration rate(GRF) is the best overall index of kidney function. Normal GFR varies according to age,sex, body size, and declines with age. The National Kid[employer] Foundation recommends using the CKD-EPI Creatinine Equation(2020) to estimate GFR. D-iznpms-f-benzoquinone imine (NAPQI) is a metabolite of acetaminophen, NAPQI concentrations of apparoximately 10 mg/L correlation to toxic levels of acetaminophen demonstrates a greater than or equil to 10% change in results. NAPQI concentrations greater than this may lead to falsely depressed results for patient samples. Testing performed at [facility], [address] [place] [address] [place] [address]. CLIA ID#: [id number] Sodium 143 136-145 MMOL/L Potassium 3.3 3.5-5.1 [...] Interpretation: Performing Lab: Notes/Report: Testing performed at: [address] [place] [address] CLIA ID [id number] WBC 9.4 4.5-11.0 X10'3 RBC 3.30 4.00-5.20 X10'6 Hgb 9.3 12.0-16.0 G/DL Hct 30.8 36.0-46.0 % MCV 93.3 80.0-100.0 FL MCH 28.2 27.0-31.0 PG MCHC 30.2 31.0-37.0 G/DL Platelet 151 150-400 X10'3 RDW-SD 54.9 35.0-49.0 FL RDW-CV 15.7 12.2-15.6 % MPV 11.6 9.2-12.0 FL Neutro Auto% 35.3 40.0-70.0 % Lymph Auto% 39.5 22.0-44.0 % Ellsworth Auto% 23.5 3.0-7.0 % Eos Auto% 1.4 2.0-4.0 % Baso Auto% 0.1 0.0-1.0 % Imm Gran% .2 .0-.4 % Neutro Abs 3.33 .80-7.70 Absolute Neutrophil Count 3330 Lymph Abs 3.73 .10-4.10 Ellsworth Abs 2.22 .20-1.00 Eos Abs .13 .00-.40 Baso Abs .01 .00-.20 Imm Gran Abs .02 .00-.10 NRBC# .00 .00-.20 X10'3 NRBC% .00 .00-.20 /100 intact WBC's UA Reflex -- [id number] Reviewed date:07/06/2024 02:00:16 PM Interpretation: Performing Lab: Notes/Report: Testing performed at: [place] [address] CLIA ID [id number] Color UA Yellow Clarity UA Cloudy Specific [...] Retrograde Urography Read See Below For Report Reason For Referral Reason Referral to [place] for r ecurrent UTIs ( ) Diagnosis 1 Recurrent UTI (N39.0 ) Referral Organization [facility] Referring Provider First Name MAEVE Referring Provider Last Name NATASHA Referring Provider Speciality Urology Referred Provider Specialty Infectious D isease Referral Priority Routine Reason Referral to nephrolo gy for CKD. 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 confirmed Problem Disorder due to type 2 diabetes mellitus (602577678) Type 2 diabetes mellitus with unspecified complications (E11.8) Active confirmed Problem Retention of urine (819851997) History of urinary retention (Z87.898) Active confirmed Problem Hydronephrosis (37705591) Hydronephrosis, left (N13.30) Active confirmed Problem Urgent desire to urinate (46246648) Urinary urgency (R39.15) Active confirmed Problem Ureteral stent present (Z96.0) Active confirmed Problem Primary hypertension (01818016) Primary hypertension (I10) Active confirmed Problem Chronic kidney disease (070407262) CKD (chronic kidney disease) (N18.9) Active confirmed Problem History of sepsis (185918561830161) History of sepsis (Z86.19) Active confirmed Problem Personal history of primary malignant neoplasm of female genital organ (940189264) History of endometrial cancer (Z85.42) Active confirmed Problem Non-Hodgkin lymphoma (731664705) Lymphoma, non-Hodgkin's (C85.90) Active confirmed Problem Urinary frequency (579031389) Urinary frequency (R35.0) Active confirmed Problem Recurrent urinary tract infection (499909461) Recurrent UTI (N39.0) Active confirmed Problem Bilateral hydronephrosis (66905233) Bilateral hydronephrosis (N13.30) Active confirmed Problem Incomplete emptying of bladder (991196372) Incomplete emptying of bladder (R33.9) Active confirmed Problem Microscopic hematuria (890515083) Microscopic hematuria (R31.29) Active confirmed Problem serum creatinine raised (434059865) Elevated serum creatinine (R79.89) Active confirmed Problem History of urinary tract infection (8872479907318) History of UTI (Z87.440) Active confirmed Problem Urinary retention (679831458) Urinary retention (R33.9) Active confirmed Problem Malignant tumor of urinary bladder (353011538) Malignant neoplasm of urinary bladder, unspecified site (C67.9) Active confirmed Problem History of hydronephrosis (0724197971213398 1) History of hydronephrosis (Z87.448) Active confirmed Problem Chronic kidney disease stage 4 (054096231) Chronic kidney disease (CKD), stage IV (severe) (N18.4) Active confirmed Problem Bladder mass (455509550) Bladder mass (N32.89) Active confirmed Vital Signs Heart Rate 74 /min 06/22/2024 Height-cm 160.02 cm 09/09/2024 Blood pressure diastolic 64 mm Hg 06/22/2024 Weight-kg 97.52 kg 09/09/2024 Height 63 in 09/09/2024 Blood pressure systolic 152 mm Hg 06/22/2024 Weight 215 lbs 09/09/2024 BMI 38.08 kg/m2 09/09/2024 Procedures Procedure Date Ordered Date Performed Result Body Sit e Bladder Scan 11/18/2023 11/18/2023 PVR0ml Bladder Scan 03/03/2024 03/03/2024 PVR 0ML Encounters Encounter Location Date Provider Diagnosis [employer] [address] [facility] [address] [place] [address] 07/08/2024 MAEVE KAUR [employer], [facility] [address] [place] [address], [place] [address] 11/18/2023 MAEVE KAUR Ureteral stent prese nt Z96.0 ; Recurrent UTI N39.0 ; History of urinary retention Z87.898 ; History of hydronephrosis Z87.448 and Chronic kidney disease (CKD), stage IV (severe) N18.4 [employer], [facility] [address] [place] [address] 01/30/2024 MAEVE KAUR Ureteral stent prese nt Z96.0 ; Recurrent UTI N39.0 ; History of urinary retention Z87.898 ; History of hydronephrosis Z87.448 and Chronic kidney disease (CKD), stage IV (severe) N18.4 [employer] [facility] [address] [place] [address] 03/03/2024 ZABRINA FINCH Bilateral hydronephrosis N13.30 ; Ureteral stent present Z96.0 ; Recurrent UTI N39.0 ; History of urinary retention Z87.898 and Chronic kidney disease (CKD), stage IV (severe) N18.4 [facility] [address] [place] [address] 06/22/2024 MAEVE KAUR Bilateral hydronephrosis N13.30 ; Ureteral stent present Z96.0 ; Recurrent UTI N39.0 ; History of urinary retention Z87.898 and Chronic kidney disease (CKD), stage IV (severe) N18.4 [facility] [address] [place] [address] 09/09/2024 Rosalino Resendezreginarobert Bilateral hydronephrosis N13.30 ; Ureteral stent present Z96.0 ; Recurrent UTI N39.0 ; History of urinary retention Z87.898 and Chronic kidney disease (CKD), stage IV (severe) N18.4 [facility] [address] [place] [address] 11/20/2023 MAEVE KAUR [facility] [address] [place] [address] 11/27/2023 MAEVE KAUR [facility] [address] [place] [address] 11/29/2023 MAEVE KAUR [facility] [address] [place] [address] 12/10/2023 MAEVE KAUR [facility] [address] [place] [address] 12/12/2023 MAEVE KAUR [facility] [address] [place] [address] 12/12/2023 MAEVE KAUR [facility] [address] [place] [address] 12/25/2023 Rosalino Resendezvalarie [facility] [address] [place] [address] 01/09/2024 MAEVE KAUR [facility] [address] [place] [address] 03/27/2024 MAEVE KAUR [facility] [address] [place] [address] 05/14/2024 MAEVE KAUR [facility], [facility] [address] [place] [address] 06/04/2024 [facility], [facility] [address] [place] [address] 07/06/2024 MAEVE KAUR Pre-op testing Z01.8 18 ; CKD (chronic kidney disease) N18.9 ; Primary hypertension I10 ; Type 2 diabetes mellitus with unspecified complications E11.8 ; Ureteral stent present Z96.0 and Malignant neoplasm of urinary bladder, unspecified site C67.9 [facility], [facility] [address] [place] [address] 07/08/2024 [facility] Ureteral stent prese nt Z96.0 and Bilateral hydronephrosis N13.30 [facility], [facility] [address] [place] [address] 07/08/2024 [facility], [facility] [address] [place] [address] 07/09/2024 Rosalino Pereginail [facility], [facility] [address] [place] [address] 09/09/2024 [facility] Bilateral hydronephrosis N13.30 [facility], [facility] [address] [place] [address] 09/14/2024 Rosalino Pevril [facility], [facility] [address] [place] [address] 09/14/2024 [facility] CKD (chronic kidney disease) N18.9 ; Ureteral stent present Z96.0 ; Type 2 diabetes mellitus with unspecified complications E11.8 and Preop testing Z01.818 [facility], [facility] [address] [place] [address] 09/14/2024 [facility], [facility] [address] [place] [address] 09/21/2024 MAEVE KAUR Assessments Encounter Date Diagnosis (ICD Code) Assessment Notes Treatment Notes Treatment Clinical Notes Section Notes 11/18/2023 Ureteral stent present (ICD-10 - Z96.0) 68-yo female with bilateral ureteral stents last exchanged on 11/02, rUTIs, CKD, atrophic L kidney. YASMEEN today shows no hydro. UA is abnormal today. She is asymptomatic. We will sent referrals to Infectious disease in [place] for rUTIs, along with a health professional for CKD 4 in [place]. She will return in 2 months for symptom reassessment with UA/PVR or sooner with any concerns. Plan: -Referral sent to Infectious disease in [place] -Referral sent to Block Operator for CKD in [place] -RTC in 2months with UA/PVR and discuss bilateral stent exchange - RTC or call sooner with any concerns IVictoria Scribe, am scribing for, and in the presence of, Dr. Kaur. I, Dr. Maeve Kaur, personally performed the services prescribed in this documentation, as scribed by Victoria Milton, in my presence, and it is both accurate and complete. 01/30/2024 Ureteral stent present (ICD-10 - Z96.0) [...] it is both accurate and complete. 06/22/2024 Bilateral hydronephrosis (ICD-10 - N13.30) 69 [...] it is both accurate and complete. 09/09/2024 Bilateral hydronephrosis (ICD-10 - N13.30) 09/09/2024 Bilateral hydronephrosis (ICD-10 - N13.30) 69 [...] at main OR - RTC post op. 09/14/2024 CKD (chronic kidney disease) (ICD-10 - N18.9) 07/08/2024 Ureteral stent present (ICD-10 - Z96.0) 07/06/2024 Pre-op testing (ICD-10 - Z01.818) 03/03/2024 Bilateral hydronephrosis (ICD-10 - N13.30) Managed with chronic indwelling ureteral stents. She will be due for exchange in March. How procedure is performed was reviewed along with risks, benefits, alternatives, and postprocedural expectations. All questions were sought and answered to pt satisfaction and pt is agreeable to proceed. Will schedule accordingly. 03/03/2024 Ureteral stent present (ICD-10 - Z96.0) 03/03/2024 Recurrent UTI (ICD-10 - N39.0) Pt following with Dr. Monge for rUTIs. Asymptomatic bacteruria today. She has h/o recurrent c.diff and with known colonization and asymptomatic nature today, will not treat. She will notify Dr. Monge our office with any symptom development. 07/06/2024 CKD (chronic kidney disease) (ICD-10 - N18.9) 09/14/2024 Ureteral stent present (ICD-10 - Z96.0) 07/08/2024 Bilateral hydronephrosis (ICD-10 - N13.30) 09/09/2024 Ureteral stent present (ICD-10 - Z96.0) [...] at main OR - RTC post op. 06/22/2024 Ureteral stent present (ICD-10 - Z96.0) [...] 1m with UA/PVR and see Zabrina Finch COMMISSARY CLERK -She will need bilateral stent exchange in [...] will sent referrals to Infectious disease in [place] for rUTIs, along with a health professional for CKD 4 in [place]. She will return in 2 months for symptom reassessment with UA/PVR or sooner with any concerns. Plan: -Referral sent to Infectious disease in [place] -Referral sent to Block Operator for CKD in [place] -RTC in 2months with UA/PVR and discuss bilateral stent exchange - RTC or call sooner with any concerns IVictoria Scribe am scribing for, and in the presence of, Dr. Kaur. I, Dr. Maeve Kaur, personally performed the services prescribed in this documentation, as scribed by Victoria Milton, in my presence, and it is both accurate and complete. 11/18/2023 History of urinary retention (ICD-10 - Z87.898) 68-yo female with bilateral ureteral stents last exchanged on 11/02, rUTIs, CKD, atrophic L kidney. YASMEEN today shows no hydro. UA is abnormal today. She is asymptomatic. We will sent referrals to Infectious disease in [place] for rUTIs, along with a health professional for CKD 4 in [place]. She will return in 2 months for symptom reassessment with UA/PVR or sooner with any concerns. Plan: -Referral sent to Infectious disease in [place] -Referral sent to Block Operator for CKD in [place] -RTC in 2months with UA/PVR and discuss bilateral stent exchange - RTC or call sooner with any concerns Victoria Latif Scribe am scribing for, and [...] 1m with UA/PVR and see Zabrina Finch COMMISSARY CLERK -She will need bilateral stent exchange in [...] will sent referrals to Infectious disease in [place] for rUTIs, along with a health professional for CKD 4 in [place]. She will return in 2 months for symptom reassessment with UA/PVR or sooner with any concerns. Plan: -Referral sent to Infectious disease in [place] -Referral sent to Block Operator for CKD in [place] -RTC in 2months with UA/PVR and discuss bilateral stent exchange - RTC or call sooner with any concerns IVictoria Scribe am scribing for, and in the presence of, Dr. Kaur. I, Dr. Maeve Kaur, personally performed the services prescribed in this documentation, as scribed by Victoria Milton, in my presence, and it is both accurate and complete. 06/22/2024 Recurrent UTI (ICD-10 - N39.0) 69 [...] it is both accurate and complete. 09/09/2024 Recurrent UTI (ICD-10 - N39.0) 69 [...] at main OR - RTC post op. 09/14/2024 Type 2 diabetes mellitus with unspecified complications (ICD-10 - E11.8) 07/06/2024 Primary hypertension (ICD-10 - I10) 03/03/2024 History of urinary retention (ICD-10 - Z87.898) 03/03/2024 Chronic kidney disease (CKD), stage IV (severe) (ICD-10 - N18.4) 09/14/2024 Preop testing (ICD-10 - Z01.818) 07/06/2024 Type 2 diabetes mellitus with unspecified complications (ICD-10 - E11.8) 06/22/2024 History of urinary retention (ICD-10 - [...] at main OR - RTC post op. 01/30/2024 History of hydronephrosis (ICD-10 - Z87.448) [...] 1m with UA/PVR and see Zabrina Finch COMMISSARY CLERK -She will need bilateral stent exchange in 2 months IVictoria Scribe, am scribing for, and in the presence of, Dr. Kaur. I, Dr. Maeve Kaur, personally performed the services prescribed in this documentation, as scribed by Victoria Milton, in my presence, and it is both accurate and complete. 11/18/2023 Chronic kidney disease (CKD), stage IV (severe) (ICD-10 - N18.4) 68-yo female with bilateral ureteral stents last exchanged on 11/02, rUTIs, CKD, atrophic L kidney. YASMEEN today shows no hydro. UA is abnormal today. She is asymptomatic. We will sent referrals to Infectious disease in [place] for rUTIs, along with a health professional for CKD 4 in [place]. She will return in 2 months for symptom reassessment with UA/PVR or sooner with any concerns. Plan: -Referral sent to Infectious disease in [place] -Referral sent to Block Operator for CKD in [place] -RTC in 2months with UA/PVR and discuss [...] need bilateral stent exchange in 2 months I, Hazel Ochoa am scribing for, and in the presence of, Dr. Kaur. I, Dr. Maeve Kaur, personally performed the services prescribed in this documentation, as scribed by Victoria Milton, in my presence, and it is both accurate and complete. 06/22/2024 Chronic kidney disease (CKD), stage IV [...] main OR - RTC post op. 07/06/2024 Ureteral stent present (ICD-10 - Z96.0) 07/06/2024 Malignant neoplasm of urinary bladder, unspecified site (ICD-10 - C67.9) Plan Of Treatment Pending Test Test Name Order Date 27401 KUB, X-Ray: Abdomen, Kidney, Urete r, bladder 07/08/2024 17728 KUB, X-Ray: Abdomen, Kidney, Urete r, bladder 09/09/2024 Basic Metabolic Panel (8) 20174 07/29/19 24 Renal Ultrasound YASMEEN 07073 07/29/2023 Renal Ultrasound YASMEEN 08226 07/04/2023 Renal Ultrasound YASMEEN 60394 07/12/2023 Basic Metabolic Panel 37126 05/21/2022 CBC w\ Auto Diff 65311 05/21/2022 Culture Urine Reflex--[id number] 05/21/2022 Electrocardiogram 12 Lead Tracing-55673 05/21/2022 BASIC METABOLIC PANEL (78091) 11/21/2022 Bladder Scan 09/04/2023 Bladder Scan 10/15/2023 [place] contrast 64258 06/19/19 Catheter Insertion-Routine 07/29/2023 Basic Metabolic Panel 06/19/2023 Basic Metabolic Panel 09/04/2023 Electrocardiogram, 12 Lead Tracing-18052 07/06/2024 Electrocardiogram, 12 Lead Tracing-49756 09/14/2024 US Renal w/bladder--75198 07/08/2024 US Renal--08907 10/15/2023 Next Appt Details Provider Name:MAEVE Emery, 11/05/2024 11:15:00 AM, [address] [place], [address], Insurance Providers Payer Name Payer Address Payer Phone Subscriber Number Group Number Insured Name Patient Relationship to Insured Coverage Start Date Coverage End Date [employer] Medicare Replacement [address] [address] [place], [place] [id number] Macey Brush Self - patient is the [...] 12/2023 cdiff, uti 11/02 Bladder bx/stents/fulguration 06/24/23 [facility] 2022 [facility] ER UTI inspired sepsi s 02/2022 see sx hx
--- NOTE | 2024-11-01 14:34 | W.ED.FEMALGU ---
HPI - Female Genitourinary General: Chief complaint: Urogenital-Female Stated complaint: unable to urinate Time Seen by Provider: 11/01/24 14:16 Source: patient Mode of arrival: ambulatory Limitations: no limitations History of Present Illness: 69 yo femal that states she had a nephrostomy tube placed on the right on . She states that it has been draining but she has had decreased urination today along with lower abd pain and is concerned she may have urinary retention. Denies fevers. Associated symptoms: Reports abdominal pain; Deny headache(s) or nausea Related Data Home Medications ?Medication ?Instructions ?Recorded ?Confirmed metoprolol succinate 50 mg 50 mg PO DAILY 04/30/22 11/01/24 tablet,extended release 24 hr tamsulosin 0.4 mg capsule 0.4 mg PO DAILY 04/30/22 11/01/24 acidophilus 100 million 1 cap PO DAILY 06/27/24 11/01/24 cell-pectin, citrus 10 mg capsule ferrous sulfate 325 mg (65 mg 325 mg PO DAILY 06/27/24 11/01/24 iron) tablet (Iron (ferrous sulfate)) levothyroxine 88 mcg tablet 88 mcg PO QAM 06/27/24 11/01/24 hydralazine 25 mg tablet 25 mg PO BID 09/20/24 11/01/24 glyburide 1.25 mg tablet 1.25 mg PO DAILY 11/01/24 11/01/24 hydrocodone 5 mg-acetaminophen 325 1 tab PO Q6H PRN Pain 11/01/24 11/01/24 mg tablet vancomycin 125 mg capsule 125 mg PO DAILY x10d 11/01/24 11/01/24 Previous Rx's ?Medication ?Instructions ?Recorded Diabetic shoes and 3 pairs of #1 ea 05/04/22 inserts aspirin 81 mg tablet,delayed 81 mg PO DAILY #30 tabs 04/13/23 release (Adult Aspirin Regimen) atorvastatin 40 mg tablet 40 mg PO BEDTIME #30 tabs 04/13/23 hydrocodone 5 mg-acetaminophen 325 1 tab PO Q6H PRN pain #10 tabs 11/01/24 mg tablet Allergies Allergy/AdvReac Type Severity Reaction Status Date / Time adhesive tape Allergy rash Verified 07/25/23 13:53 ciprofloxacin (From Cipro) Allergy peeling of Verified 07/25/23 13:53 hands and feet latex Allergy ALGY-Rash Verified 07/25/23 13:53 silver (From Tegaderm AG Allergy Unknown Verified 08/27/24 10:55 Mesh) sulfamethoxazole (From Allergy doesn't Verified 07/25/23 13:53 Bactrim) work trimethoprim (From Bactrim) Allergy doesn't Verified 07/25/23 13:53 work Review of Systems Const: Denies: fever(s), chills, body aches or change in appetite ENMT: Denies: throat pain or dental pain Card: Denies: chest pain Resp: Denies: dyspnea GI: Reports: abdominal pain; Denies: nausea, vomiting or diarrhea : Reports: difficulty voiding Musc: Denies: neck pain or back pain Skin/Breast: Denies: rash Neuro: Denies: headache(s) PFSH ED PFSH: Medical History (Updated 11/01/24 @ 16:44 by Fei Delcid MD) Lymphoma Diabetes History of endometrial cancer DJD (degenerative joint disease) Chronic kidney disease Chronic UTI Hypertension Anemia History of nonmelanoma skin cancer Hodgkin lymphoma Thyroid disease Arthritis Surgical History History of cholecystectomy H/O: hysterectomy Family History Mother Diabetes Other Cancer Social History Smoking and tobacco/nicotine status: former use of tobacco/nicotine Quit status (tobacco/nicotine): has quit using Year quit tobacco: 1979 Former quit date comment: 0.5ppd X 1 year Alcohol intake: never Physical Exam Const: COMMON NORMALS: no acute distress, patient oriented x3 and healthy appearing HENMT: COMMON NORMALS: normocephalic and atraumatic HEAD & SCALP: normocephalic and atraumatic Eye: COMMON NORMALS: conjunctivae normal CONJUNCTIVA: Yes conjunctivae normal Neck/C-Spine: COMMON NORMALS: full ROM and supple Chest: COMMONS NORMALS: normal inspection of the chest Resp: COMMON NORMALS: normal respiratory effort Cardio: COMMON NORMALS: regular rate, regular rhythm and No murmurs present (Cardio) RATE: regular rate RHYTHM: regular rhythm GI: COMMON NORMALS: Normal to inspection, nondistended, normoactive bowel sounds present, Soft to palpation, non-tender and no masses PALPATION: Yes Soft to palpation : OTHER: nephrostomy in place on right with urine output Extremity: COMMON NORMALS: normal to inspection and full ROM Neuro: COMMON NORMALS: patient oriented x3, moves all extremities and no focal motor deficits Psych: COMMON NORMALS: mental status grossly normal, Normal thought process present and cooperative THOUGHT PROCESS: Normal thought process present Skin: COMMON NORMALS: no rashes or lesions noted and no wounds GENERAL SKIN EXAM: no rashes or lesions noted Course Vital Signs: Vital signs: Vital Signs Temperature 98.0 F 11/01/24 14:13 Pulse Rate 64 11/01/24 14:13 Respiratory Rate 16 11/01/24 14:13 Blood Pressure 150/78 11/01/24 15:24 Pulse Oximetry 97 11/01/24 14:13 Oxygen Delivery Me thod Room Air 11/01/24 14:13 MDM - Female Medical Decision Making Patient presents with concern that she is not urinating is likely all urines going through her nephrostomy her kidney function here is at her baseline CT showed no acute urinary retention I did talk to her urologist Dr. Simmons is going to follow her up next week she stable for discharge return if worsening Medical Records I reviewed the patient's medical records. Lab Data I reviewed the patient's lab results. 11/01/24 15:21 11/01/24 15:21 Radiology Impressions Abdomen/Pelvis CT 11/01/24 14:47 IMPRESSION: 1. Bilateral ureteral stents and right-sided percutaneous nephrostomy tube with multiple right renal stones. Right ureteral calculi measuring up to 6 mm. 2. Mild right and very mild left hydronephrosis with slight improvement on the left. 3. Stranding and soft tissue nodules and lymph nodes in the mesentery again seen without appreciable change. Neoplastic etiologies such as carcinoid cannot be excluded. Mesenteric adenitis/panniculitis is in the differential. 4. Scattered pulmonary nodules at the lung bases including a new 9 mm nodule or nodular density. Infectious or inflammatory etiologies are favored. Consider short-term follow-up CT chest. 5. Other findings as detailed above. Laboratory Results WBC 9.32 10^3/uL (3.29-11.43) 11/01/24 15:21 RBC 3.04 10^6/uL (3.85-5.65) L 11/01/24 15:21 Hgb 8.80 g/dL (11.27-16.99) L 11/01/24 15:21 Hct 29.4 % (36-47) L 11/01/24 15:21 MCV 96.7 fl (85-98) 11/01/24 15:21 MCH 28.9 pg (27-33) 11/01/24 15:21 MCHC 29.9 g/dL (30-55) L 11/01/24 15:21 RDW 13.7 % (12.1-15.1) 11/01/24 15:21 Plt Count 116 10^3/cmm (157-399) L 11/01/24 15:21 MPV 11.2 fL (7.4-10.4) H 11/01/24 15:21 Neut % (Auto) 31.9 % 11/01/24 15:21 Lymph % (Auto) 40.6 % 11/01/24 15:21 Cataño % (Auto) 25.9 % 11/01/24 15:21 Eos % (Auto) 1.1 % 11/01/24 15:21 Baso % (Auto) 0.2 % 11/01/24 15:21 Neut # (Auto) 2.98 10^3/uL (1.8-7.7) 11/01/24 15:21 Lymph # (Auto) 3.8 10^3/uL (0.8-4.8) 11/01/24 15:21 Cataño # (Auto) 2.4 10^3/uL (0.2-0.9) H 11/01/24 15:21 Eos # (Auto) 0.1 10^3/uL (0.0-0.8) 11/01/24 15:21 Baso # (Auto) 0.0 10^3/uL (0.0-0.1) 11/01/24 15:21 Nucleated RBC % (auto) 0 % 11/01/24 15:21 Nucleated RBCs # 0.0 /100WBC 11/01/24 15:21 Sodium 136 mmol/L (136-145) 11/01/24 15:21 Potassium 4.1 mmol/L (3.5-5.1) 11/01/24 15:21 Chloride 104 mmol/L (98-107) 11/01/24 15:21 Carbon Dioxide 21 mmol/L (22-29) L 11/01/24 15:21 Anion Gap 15.1 (5-19) 11/01/24 15:21 BUN 25 mg/dL (8-23) H 11/01/24 15:21 Creatinine 1.5 mg/dL (0.5-0.9) H 11/01/24 15:21 GFR Calculation Not Reportable 11/01/24 15:21 Glucose 80 mg/dL (65-115) 11/01/24 15:21 Calculated Osmolality 285 mOsm/kg (285-295) 11/01/24 15:21 Calcium 9.2 mg/dL (8.5-10.5) 11/01/24 15:21 Total Bilirubin 0.5 mg/dL (0.15-1.2) 11/01/24 15:21 AST 14 U/L (0-32) 11/01/24 15:21 ALT 12 U/L (0-33) 11/01/24 15:21 Alkaline Phosphatase 104 U/L (35-105) 11/01/24 15:21 Total Protein 8.0 g/dL (6.6-8.7) 11/01/24 15:21 Albumin 3.6 g/dL (3.5-5.2) 11/01/24 15:21 Globulin 4.4 g/dL (1.3-4.6) 11/01/24 15:21 All radiology interpretation(s) finalized by discharge Discharge Plan Discharge Patient Disposition: Home Clinical Impression: Abdominal pain Condition: Stable Prescriptions: New hydrocodone-acetaminophen 5-325 mg tablet 1 tab PO Q6H PRN (Reason: pain) Qty: 10 0RF No Action metoprolol succinate 50 mg tablet extended release 24 hr 50 mg PO DAILY tamsulosin 0.4 mg capsule 0.4 mg PO DAILY (DME) Diabetic shoes and 3 pairs of inserts See Rx Instructions .Route .MEDSUPPLY Qty: 1 0RF Rx Instructions: As directed HOME atorvastatin 40 mg Tablet 40 mg PO BEDTIME Qty: 30 0RF aspirin [Adult Aspirin Regimen] 81 mg tablet,delayed release (DR/EC) 81 mg PO DAILY Qty: 30 0RF Patient Comments: On hold hydralazine 25 mg tablet 25 mg PO BID hydrocodone-acetaminophen 5-325 mg tablet 1 tab PO Q6H PRN (Reason: Pain) vancomycin 125 mg capsule 125 mg PO DAILY glyburide 1.25 mg tablet 1.25 mg PO DAILY levothyroxine 88 mcg tablet 88 mcg PO QAM ferrous sulfate [Iron (ferrous sulfate)] 325 mg (65 mg iron) Tablet 325 mg PO DAILY acidophilus-pectin, citrus [Acidophilus Probiotic] 100 million cell-10 mg Capsule 1 cap PO DAILY Discharge Orders: Discharge ED (Routine); Ordered 11/01/24 Ordered By: Fei Delcid Discharge Diet: Advance as tolerated Discharge Activity: Resume usual activity Patient Instructions: Abdominal Pain (ED), Opioid Safety Print Language: Turkmen Coding Level of Care Code ED Emergency Room Clerk for Mykel Vitale
--- NOTE | 2024-11-01 14:47 | CTR_ITS ---
PROCEDURE INFORMATION: Exam: CT Abdomen And Pelvis Without Contrast Exam date and time: 11/01/2024 3:03 PM Age: 69 years old Clinical indication: Abdominal pain; Generalized; Prior surgery; Surgery date: 6+ months; Surgery type: Nephrostomy, stef renal stents, gb, hyster; Endometrial cancer, hodgkins lymphoma, non-hodgkins lymphoma; Additional info: Abd pain TECHNIQUE: Imaging protocol: Computed tomography of the abdomen and pelvis without contrast. Radiation optimization: All CT scans at this facility use at least one of these dose optimization techniques: automated exposure control; mA and/or kV adjustment per patient size (includes targeted exams where dose is matched to clinical indication); or iterative reconstruction. COMPARISON: CT kidney stone [id number] 09/20/2024 3:33 PM RADIATION DOSE METRICS: Total DLP (mGy-cm): 1085.43 FINDINGS: Lungs: Scattered nodules are seen at the lung bases including partially visualized right midlung nodule measuring at least 6 mm and left lower lobe pleural-based nodular density measuring 9 mm in greatest dimension. Left lower lobe nodule is new. Right midlung nodule may not have been imaged on the prior CT but could also be new. Diaphragm: Small hiatal hernia. Liver: Normal. No mass. Gallbladder and biliary ducts: Status post cholecystectomy. Pancreas: Normal. No ductal dilation. Spleen: Normal. No splenomegaly. Adrenal glands: Normal. No mass. Kidneys and ureters: Multiple right renal stones are again seen. A percutaneous nephrostomy tube is noted on the right extending along the right ureter into the bladder. A left ureteral stent is seen. Along the course of the right ureteral catheter or stent there are 2 stones, the largest measuring 6 mm. Mild right hydronephrosis and perinephric stranding. Very mild left hydronephrosis is again seen but improved. Mild right hydroureter is again noted. The left kidney is small and atrophic with a few tiny stones. Stomach and bowel: Unremarkable. No obstruction. No mucosal thickening. Appendix: No evidence of appendicitis. Intraperitoneal space: Mild fat stranding of the mesentery is again seen. Multiple mesenteric nodules and right amorphous soft tissue density again noted without change. A left mesenteric nodule measures 1.6 x 1.3 cm without appreciable change. Vasculature: Unremarkable. No abdominal aortic aneurysm. Lymph nodes: Unremarkable. No enlarged lymph nodes. Urinary bladder: Unremarkable as visualized. Reproductive: Unremarkable as visualized. Bones/joints: No acute fracture. Slight sclerosis of the S1 body again seen. Soft tissues: See Intraperitoneal space finding. CT/CT kidney stone [id number] IMPRESSION: 1. Bilateral ureteral stents and right-sided percutaneous nephrostomy tube with multiple right renal stones. Right ureteral calculi measuring up to 6 mm. 2. Mild right and very mild left hydronephrosis with slight improvement on the left. 3. Stranding and soft tissue nodules and lymph nodes in the mesentery again seen without appreciable change. Neoplastic etiologies such as carcinoid cannot be excluded. Mesenteric adenitis/panniculitis is in the differential. 4. Scattered pulmonary nodules at the lung bases including a new 9 mm nodule or nodular density. Infectious or inflammatory etiologies are favored. Consider short-term follow-up CT chest. 5. Other findings as detailed above.
[2024-11-01 15:24] VITALS: BP 150/78
[2024-11-01 15:37] LABS: Hematocrit 29.4 % (36-47); Hemoglobin 8.80 g/dL (11.27-16.99); Mean Corpuscular HGB Conc 29.9 g/dL (30-55); Mean Corpuscular Hemoglobin 28.9 pg (27-33); Mean Corpuscular Volume 96.7 fl (85-98); Nucleated Red Blood Cells % 0 %; Platelet Count 116 10^3/cmm (157-399); Red Blood Count 3.04 10^6/uL (3.85-5.65); White Blood Count 9.32 10^3/uL (3.29-11.43)
[2024-11-01 15:51] LABS: Alanine Aminotransferase 12 U/L (0-33); Albumin Level 3.6 g/dL (3.5-5.2); Alkaline Phosphatase 104 U/L (35-105); Anion Gap 15.1 (5-19); Aspartate Amino Transferase 14 U/L (0-32); Blood Urea Nitrogen 25 mg/dL (8-23); Calcium 9.2 mg/dL (8.5-10.5); Carbon Dioxide 21 mmol/L (22-29); Chloride 104 mmol/L (98-107); Globulin 4.4 g/dL (1.3-4.6); Glucose 80 mg/dL (65-115); Osmolality Calculated 285 mOsm/kg (285-295); Potassium 4.1 mmol/L (3.5-5.1); Sodium 136 mmol/L (136-145); Total Protein 8.0 g/dL (6.6-8.7)
[2024-11-01 15:55] LABS: Creatinine Clr Calc Pharmacy 38.0995
--- NOTE | 2024-11-01 16:46 | PC.PHAR ---
Pt has Premarin 0.625 vag cream 10/22/24 30ds-pt states she can't take it.
[2024-11-01] MEDS: HYDROcodone-acetaminophen 5-325 mg Tablet 1 TAB PO (16:47)
[2024-11-01 16:53] VITALS: BP 152/58; PULSE 70; O2SAT 97
[2024-11-01 17:04] VITALS: BP 152/58; PULSE 66; O2SAT 97
--- OUTSIDE RECORDS SUMMARY | 2024-11-04 07:41 | XMS_ITS | Patient Health Record ---
Author Organization [facility] Address [address] [place] [address] Care Team Providers Care Credit Checker Name Role Phone Heriberto Celia Primary Care Provider UnavailNish Chow Unavailable [phone] JANESSA PRASADLEE Unavailable Unavailable Corky Lorenzo Unavailable [phone] Abelardo Monge JR Unavailable [phone] Amrita Prasad Unavailable [phone] Mansi Oliva Unavailable [phone] Patricia Cristina Unavailable [phone] Jen Caldwell Unavailable [phone] Solomon Sanchez Unavailable [phone] Allergies Allergen (clinical drug ingredient) Drug/Non Drug Allergy documented on EMR Reaction Allergy Type Onset Date Status ciprofloxacin Ciprofloxacin Unknown Drug Allergy Active Latex Latex Unknown Allergy Active Results Component Value Reference Range Flag Notes Protein (U) Random 48845 Reviewed date:02/28/2024 08:40:28 AM Interpretation: Performing Lab: Notes/Report: Ur Prot 159.40 .00-12.00 MG/DL HI Creatinine (U) 12764 Reviewed date:02/28/2024 08:40:28 AM Interpretation: Performing Lab: Notes/Report: Ur Creat 68.6 29.0-226.0 CT Chest w/o Contrast diagno stic-[id number] Reviewed date:01/14/2024 03:36:41 PM Interpretation: Performing Lab: Notes/Report: [id number] CBC w\ Auto Diff [id number] Reviewed date:01/10/2024 11:40:19 AM Interpretation: Performing Lab: Notes/Report: Diagnosis Description: Urinary tract infection, site not specified WBC 12.6 4.5-11.0 X10'3 HI RBC 2.86 4.00-5.20 X10'6 LOW Hgb 7.7 12.0-16.0 G/DL LOW Hct 27.2 36.0-46.0 % LOW MCV 95.1 80.0-100.0 FL MCH 26.9 27.0-31.0 PG LOW MCHC 28.3 31.0-37.0 G/DL LOW Platelet 147 150-400 X10'3 LOW RDW-SD 56.0 35.0-49.0 FL HI RDW-CV 16.4 12.2-15.6 % HI MPV 11.6 9.2-12.0 FL Neutro Auto% 53.0 40.0-70.0 % Lymph Auto% 22.8 22.0-44.0 % Sanborn Auto% 22.2 3.0-7.0 % HI Eos Auto% .6 2.0-4.0 % LOW Baso Auto% 0.2 0.0-1.0 % Imm Gran% 1.2 .0-.4 % HI Neutro Abs 6.69 .80-7.70 Absolute Neutrophil Count 6690 NA Lymph Abs 2.88 .10-4.10 Sanborn Abs 2.80 .20-1.00 HI Eos Abs .07 .00-.40 Baso Abs .02 .00-.20 Imm Gran Abs .15 .00-.10 HI NRBC# .00 .00-.20 X10'3 NRBC% .00 .00-.20 /100 intact WBC's Comprehensive Metabolic Pane l (CMP) [id number] Reviewed date:01/10/2024 11:40:19 AM Interpretation: Performing Lab: Notes/Report: Diagnosis Description: Urinary tract infection, site not specified Glucose Serum 155 71-110 MG/DL HI Testing p erformed at [facility], [address] [place] [address] NASIM Bauman [address]. CLIA ID#: [id number] BUN 12 7-21 MG/DL Creat 1.46 .51-1.17 MG/DL HI Q-fdblqy-q-benzoquin one imine (NAPQI) is a metabolite of acetaminophen, [...] potential for falsely depressed results. GFR 38.3 NA Calculation pe rformed from GFR calculator provided by the [employer]. Glomerular Filtration rate(GRF) is the best overall index of kidney function. Normal GFR varies according to age,sex, body size, and declines with age. The National Kid[employer] Foundation recommends using the CKD-EPI Creatinine Equation(2020) to estimate GFR. BUN/Creat Ratio 8.2 12.0-20.0 % LOW Total Protein 6.6 5.8-8.0 G/DL Albumin 3.5 3.2-4.8 G/DL Globulin 3.0 2.3-3.5 G/DL Alb/Glob 1.2 0.8-2.2 Calcium 8.6 8.7-10.4 MG/DL LOW Sodium 143 136-145 MMOL/L Potassium 4.0 3.5-5.1 MMOL/L Chloride 109 98-107 MMOL/L HI CO2 27.6 20.0-31.0 MMOL/L Anion Gap 10 5-15 Alk Phos 84 46-116 Bili Total .4 .3-1.2 MG/DL Use of this assay is not recommended for patients undergoing treatment with eltrombopag due to the potential for falsely elevated results. AST/SGOT <8 15-37 UNIT/L LOW ALT/SGPT <7 12-78 UNIT/L LOW Osmo Serum,Calculated 299 280-300 MOSM/KG CRP 17801 Reviewed date:01/10/2024 11:40:19 AM Interpretation: Performing Lab: Notes/Report: Diagnosis Description: Urinary tract infection, site not specified CRP 5.68 .40-1.00 MG/DL HI Culture Urine [id number] Reviewed date:01/21/2024 11:19:57 AM Interpretation: Performing Lab: Notes/Report: Culture Urine ALCIRA Plascencia Culture Urine t: Culture Urine Culture Urine Access [id number] Culture Urine n: Culture Urine Microbiology Culture [...] Culture Urine O1: Culture Urine (Culture Urine [id number]) Culture Urine Diagnosis Descriptio n: Tubulo-interstitial nephritis, not specified as acute or chronic CBC w\ Auto Diff [id number] Reviewed date:01/21/2024 11:19:57 AM Interpretation: Performing Lab: Notes/Report: Diagnosis Description: Tubulo-interstitial nephritis, not specified as acute or chronic WBC 7.7 4.5-11.0 X10'3 RBC 2.81 4.00-5.20 X10'6 LOW Hgb 7.9 12.0-16.0 G/DL LOW Hct 26.8 36.0-46.0 % LOW MCV 95.4 80.0-100.0 FL MCH 28.1 27.0-31.0 PG MCHC 29.5 31.0-37.0 G/DL LOW Platelet 142 150-400 X10'3 LOW RDW-SD 59.3 35.0-49.0 FL HI RDW-CV 16.7 12.2-15.6 % HI MPV 11.4 9.2-12.0 FL Neutro Auto% 38.3 40.0-70.0 % LOW Lymph Auto% 34.4 22.0-44.0 % Sanborn Auto% 25.4 3.0-7.0 % HI Eos Auto% 1.2 2.0-4.0 % LOW Baso Auto% 0.3 0.0-1.0 % Imm Gran% .4 .0-.4 % Neutro Abs 2.94 .80-7.70 Absolute Neutrophil Count 2940 NA Lymph Abs 2.64 .10-4.10 Sanborn Abs 1.95 .20-1.00 HI Eos Abs .09 .00-.40 Baso Abs .02 .00-.20 Imm Gran Abs .03 .00-.10 NRBC# .00 .00-.20 X10'3 NRBC% .00 .00-.20 /100 intact WBC's Comprehensive Metabolic Pane l (CMP) [id number] Reviewed date:01/21/2024 11:19:57 AM Interpretation: Performing Lab: Notes/Report: Diagnosis Description: Tubulo-interstitial nephritis, not specified as acute or chronic Glucose Serum 198 71-110 MG/DL HI Testing p erformed at [facility], [address] [place] [address] [place] [address]. CLIA ID#: [id number] BUN 17 7-21 MG/DL Creat 1.75 .51-1.17 MG/DL HI Z-imryii-f-benzoquin one imine (NAPQI) is a metabolite of acetaminophen, [...] potential for falsely depressed results. GFR 30.8 NA Calculation pe rformed from GFR calculator provided by the [employer]. Glomerular Filtration rate(GRF) is the best overall index of kidney function. Normal GFR varies according to age,sex, body size, and declines with age. The National Kid[employer] Foundation recommends using the CKD-EPI Creatinine Equation(2020) to estimate GFR. BUN/Creat Ratio 9.7 12.0-20.0 % LOW Total Protein 6.9 5.8-8.0 G/DL Albumin 3.7 3.2-4.8 G/DL Globulin 3.2 2.3-3.5 G/DL Alb/Glob 1.2 0.8-2.2 Calcium 8.4 8.7-10.4 MG/DL LOW Sodium 144 136-145 MMOL/L Potassium 4.4 3.5-5.1 MMOL/L Chloride 108 98-107 MMOL/L HI CO2 26.6 20.0-31.0 MMOL/L Anion Gap 14 5-15 Alk Phos 99 46-116 Bili Total .4 .3-1.2 MG/DL Use of this assay is not recommended for patients undergoing treatment with eltrombopag due to the potential for falsely elevated results. AST/SGOT 10 15-37 UNIT/L LOW ALT/SGPT 7 12-78 UNIT/L LOW Osmo Serum,Calculated 305 280-300 MOSM/KG HI Microscopic Urine [id number] Reviewed date:01/21/2024 11:19:57 AM Interpretation: Performing Lab: Notes/Report: Diagnosis Description: Tubulo-interstitial nephritis, not specified as acute or chronic RBC U 387 NA WBC U 382 0-5 /HPF HI Bacteria 1+ NA Hyaline Casts 11 NA SQ EPI 10 NA WBC Clump Present NA CRP [id number] Reviewed date:01/21/2024 11:19:57 AM Interpretation: Performing Lab: Notes/Report: Diagnosis Description: Tubulo-interstitial nephritis, not specified as acute or chronic CRP 3.12 .40-1.00 MG/DL SC Culture Urine [id number] Reviewed date:02/04/2024 02:38:48 PM Interpretation: Performing Lab: Notes/Report: Culture Urine Matthew BECKMAN ALCIRA REDDY Culture Urine t: Culture Urine Culture Urine Accessio [id number] Culture Urine n: Culture Urine Microbiology Culture Urine PROCEDURE: Culture Urine [O1] Culture Urine SOURCE: Urine BODY SITE: Culture Urine COLLECTED DATE/TIME: 01/30/2024 12:10 PIECE HAND RECEIVED DATE/TIME: 01/30/2024 13:28 PIECE HAND Culture Urine START DATE/TIME: 01/30/2024 13:28 PIECE HAND FREE TEXT SOURCE: Culture Urine FINAL REPORT Culture Urine Final Report [] Culture Urine Verified Date/Time: 02/01/2024 05:16 PIECE HAND Culture Urine <10,000 cfu/ml Mixed Superficial Юлия Culture Urine Order Comments Culture Urine O1: Culture Urine (Culture Urine 15808) Culture Urine Diagnosis Descriptio n: Tubulo-interstitial nephritis, not specified as acute or chronic Microscopic Urine 83150 Reviewed date:01/31/2024 08:23:54 AM Interpretation: Performing Lab: Notes/Report: Diagnosis Description: Tubulo-interstitial nephritis, not specified as acute or chronic RBC U 249 NA WBC U 165 0-5 /HPF HI Bacteria None Seen NA Hyaline Casts 1 NA SQ EPI 1 NA CDiff PCR Rfx C diff Toxin N AP/EPI 34417, 09432 Reviewed date:02/07/2024 10:52:03 AM Interpretation: Performing Lab: Notes/Report: Diagnosis Description: Other bacterial infections of unspecified site patient sent with stool collection kit 01/30/2024 12:13:00 fboyd CDiff PCR Reflex POSITIVE ABN A positi ve result by PCR indicates the presence of Clostridium difficile bacteria that is capable of producing toxin. It does not indicate toxin production; treatment should be based on clinical symptoms. Toxin testing will be performed on PCR positive results. CBC w\ Auto Diff [id number] Reviewed date:02/07/2024 08:46:24 AM Interpretation: Performing Lab: Notes/Report: Diagnosis Description: Other bacterial infections of unspecified site WBC 8.9 4.5-11.0 X10'3 RBC 3.26 4.00-5.20 X10'6 LOW Hgb 9.2 12.0-16.0 G/DL LOW Hct 30.8 36.0-46.0 % LOW MCV 94.5 80.0-100.0 FL MCH 28.2 27.0-31.0 PG MCHC 29.9 31.0-37.0 G/DL LOW Platelet 147 150-400 X10'3 LOW RDW-SD 53.0 35.0-49.0 FL HI RDW-CV 15.1 12.2-15.6 % MPV 11.8 9.2-12.0 FL Neutro Auto% 38.1 40.0-70.0 % LOW Lymph Auto% 42.7 22.0-44.0 % Sanborn Auto% 16.8 3.0-7.0 % HI Eos Auto% 1.8 2.0-4.0 % LOW Baso Auto% 0.4 0.0-1.0 % Imm Gran% .2 .0-.4 % Neutro Abs 3.40 .80-7.70 Absolute Neutrophil Count 3400 NA Lymph Abs 3.81 .10-4.10 Sanborn Abs 1.50 .20-1.00 HI Eos Abs .16 .00-.40 Baso Abs .04 .00-.20 Imm Gran Abs .02 .00-.10 NRBC# .00 .00-.20 X10'3 NRBC% .00 .00-.20 /100 intact WBC's Comprehensive Metabolic Pane l (CMP) 42514 Reviewed date:02/07/2024 08:46:24 AM Interpretation: Performing Lab: Notes/Report: Diagnosis Description: Other bacterial infections of unspecified site Glucose Serum 115 71-110 MG/DL HI Testing p erformed at [facility], [address] [place] [address] [place] [address]. CLIA ID#: [id number] BUN 29 7-21 MG/DL HI Creat 1.73 .51-1.17 MG/DL HI E-evornz-j-benzoquin one imine (NAPQI) is a metabolite of acetaminophen, [...] potential for falsely depressed results. GFR 31.3 NA Calculation pe rformed from GFR calculator provided by the National Kid[employer]. Glomerular Filtration rate(GRF) is the best overall index of kidney function. Normal GFR varies according to age,sex, body size, and declines with age. The National Kidney Foundation recommends using the CKD-EPI Creatinine Equation(2020) to estimate GFR. BUN/Creat Ratio 16.8 12.0-20.0 % Total Protein 8.3 5.8-8.0 G/DL HI Albumin 4.5 3.2-4.8 G/DL Globulin 3.8 2.3-3.5 G/DL HI Alb/Glob 1.2 0.8-2.2 Calcium 9.7 8.7-10.4 MG/DL Sodium 141 136-145 MMOL/L Potassium 4.9 3.5-5.1 MMOL/L Chloride 113 98-107 MMOL/L HI CO2 21.2 20.0-31.0 MMOL/L Anion Gap 12 5-15 Alk Phos 106 46-116 Bili Total .5 .3-1.2 MG/DL Use of this assay is not recommended for patients undergoing treatment with eltrombopag due to the potential for falsely elevated results. AST/SGOT 15 15-37 UNIT/L ALT/SGPT 10 12-78 UNIT/L LOW Osmo Serum,Calculated 299 280-300 MOSM/KG CRP 68155 Reviewed date:02/07/2024 08:45:25 AM Interpretation: Performing Lab: Notes/Report: Diagnosis Description: Other bacterial infections of unspecified site CRP 2.12 .40-1.00 MG/DL HI Culture Urine [id number] Reviewed date:02/13/2024 08:39:59 AM Interpretation: Performing Lab: Notes/Report: Culture Urine ALCIRA Plascencia Culture Urine t: Culture Urine Culture Urine Accessio [id number] Culture Urine n: Culture Urine Microbiology Culture Urine PROCEDURE: Culture Urine [O1] Culture Urine SOURCE: Urine BODY SITE: Culture Urine COLLECTED DATE/TIME: 02/10/2024 16:06 PIECE HAND RECEIVED DATE/TIME: 02/10/2024 21:49 PIECE HAND Culture Urine START DATE/TIME: 02/10/2024 21:50 PIECE HAND FREE TEXT SOURCE: Culture Urine FINAL REPORT Culture Urine Final Report [] Culture Urine Verified Date/Time: 02/12/2024 06:31 PIECE HAND Culture Urine >100,000 cfu/ml. Citrobacter farmeri Culture Urine SUSCEPTIBILITY RESULTS Culture Urine Citfar Culture Urine Antibiotic MDIL MINT Culture Urine Ceftazidime <=0.5 Susceptible Culture Urine Gentamicin <=1 Susceptible Culture Urine Nitrofurantoin 64 Intermediate Culture Urine Order Comments Culture Urine O1: Culture Urine (Culture Urine [id number]) Culture Urine Diagnosis Descriptio n: Urinary tract infection, site not specified CBC w\ Auto Diff [id number] Reviewed date:02/14/2024 09:19:08 AM Interpretation: Performing Lab: Notes/Report: Diagnosis Description: Other bacterial infections of unspecified site WBC 5.9 4.5-11.0 X10'3 RBC 3.23 4.00-5.20 X10'6 LOW Hgb 9.1 12.0-16.0 G/DL LOW Hct 29.5 36.0-46.0 % LOW MCV 91.3 80.0-100.0 FL MCH 28.2 27.0-31.0 PG MCHC 30.8 31.0-37.0 G/DL LOW Platelet 153 150-400 X10'3 RDW-SD 48.6 35.0-49.0 FL RDW-CV 14.2 12.2-15.6 % MPV 11.2 9.2-12.0 FL Neutro Auto% 41.0 40.0-70.0 % Lymph Auto% 35.7 22.0-44.0 % Sanborn Auto% 21.1 3.0-7.0 % HI Eos Auto% 1.5 2.0-4.0 % LOW Baso Auto% 0.2 0.0-1.0 % Imm Gran% .5 .0-.4 % HI Neutro Abs 2.41 .80-7.70 Absolute Neutrophil Count 2410 NA Lymph Abs 2.10 .10-4.10 Sanborn Abs 1.24 .20-1.00 HI Eos Abs .09 .00-.40 Baso Abs .01 .00-.20 Imm Gran Abs .03 .00-.10 NRBC# .00 .00-.20 X10'3 NRBC% .00 .00-.20 /100 intact WBC's Comprehensive Metabolic Pane l (CMP) [id number] Reviewed date:02/14/2024 09:19:08 AM Interpretation: Performing Lab: Notes/Report: Diagnosis Description: Other bacterial infections of unspecified site Glucose Serum 103 71-110 MG/DL Testing p erformed at [facility], [address] [place] [address] [place] [address]. CLIA ID#: [id number] BUN 30 7-21 MG/DL HI Creat 2.04 .51-1.17 MG/DL HI F-vkmuae-f-benzoquin one imine (NAPQI) is a metabolite of acetaminophen, [...] potential for falsely depressed results. GFR 25.6 NA Calculation pe rformed from GFR calculator provided by the National [...] 9.1 8.7-10.4 MG/DL Sodium 146 136-145 MMOL/L HI Potassium 3.7 3.5-5.1 MMOL/L Chloride 114 98-107 MMOL/L HI CO2 20.5 20.0-31.0 MMOL/L Anion Gap 15 5-15 Alk Phos 93 46-116 Bili Total .4 .3-1.2 MG/DL Use of this assay is not recommended for patients undergoing treatment with eltrombopag due to the potential for falsely elevated results. AST/SGOT 13 15-37 UNIT/L LOW ALT/SGPT 8 12-78 UNIT/L LOW Osmo Serum,Calculated 308 280-300 MOSM/KG HI Microscopic Urine [id number] Reviewed date:02/11/2024 04:08:58 PM Interpretation: Performing Lab: Notes/Report: Diagnosis Description: Urinary tract infection, site not specified RBC U 6 NA WBC U 637 0-5 /HPF HI Bacteria 3+ NA Hyaline Casts 4 NA SQ EPI 6 NA CRP [id number] Reviewed date:02/14/2024 09:19:08 AM Interpretation: Performing Lab: Notes/Report: Diagnosis Description: Other bacterial infections of unspecified site CRP 7.96 .40-1.00 MG/DL HI CT Abdomen, Pelvis w/o Contr ast-[id number] Reviewed date:02/14/2024 09:17:51 AM Interpretation: Performing Lab: Notes/Report: [id number]=iSite Schedule Confirmation Reviewed date:01/06/2024 07:40:15 PM Interpretation: Performing Lab: Notes/Report: CT Chest w/o Contrast Schedule Confirmation Reviewed date:02/11/2024 03:49:12 PM Interpretation: Performing Lab: Notes/Report: Basic Metabolic Panel (BMP) [id number] Reviewed date:09/22/2024 04:16:20 PM Interpretation: Performing Lab: Notes/Report: Diagnosis Description: Chronic kidney disease, stage 3b Diagnosis Description: Hyperkalemia Sodium 145 136-145 MMOL/L Potassium 4.7 3.5-5.1 MMOL/L Chloride 113 98-107 MMOL/L HI CO2 20.6 20.0-31.0 MMOL/L Glucose Serum 127 71-110 MG/DL HI Testing p erformed at [facility], [address] [place] [address] [place] [address]. CLIA ID#: [id number] BUN 42 7-21 MG/DL HI Creat 1.85 .51-1.17 MG/DL HI Y-dieqkp-d-benzoquin one imine (NAPQI) is a metabolite of acetaminophen, [...] potential for falsely depressed results. GFR 28.7 NA Calculation pe rformed from GFR calculator provided by the National Kid[employer]. Glomerular Filtration rate(GRF) is the best overall index of kidney function. Normal GFR varies according to age,sex, body size, and declines with age. The National Kidney Foundation recommends using the CKD-EPI Creatinine Equation(2020) to estimate GFR. Anion Gap 16 5-15 HI BUN/Creat Ratio 22.7 12.0-20.0 % HI Calcium 9.1 8.7-10.4 MG/DL Osmo Serum,Calculated 312 280-300 MOSM/[place] [address] Reviewed date:01/01/2024 05:25:24 PM Interpretation: Performing Lab: Notes/Report: BG 221 @0120, pt states had c-diff multiple times. bm in urine. no sample yet. 3516 @ 0150 3516 @ 0150 CRP 3.93 .40-1.00 MG/[place] 62596 Reviewed date:12/31/2023 11:21:23 AM Interpretation: Performing Lab: Notes/Report: BG 221 @0120, pt states had c-diff multiple times. bm in urine. no sample yet. 3516 @ 0150 3516 @ 0150 CRP 22.60 .40-1.00 MG/DL HI CT Chest w/o Contrast diagno stic-53311 Reviewed date:01/14/2024 03:36:41 PM Interpretation: Performing Lab: Notes/Report: See Below For Report CT Chest w/o Contrast Read See Below For Report Ferritin 25028 Reviewed date:12/31/2023 09:55:20 PM Interpretation: Performing Lab: Notes/Report: BG 221 @0120, pt states had c-diff multiple times. bm in urine. no sample yet. 3516 @ 0150 3516 @ 0150 Ferritin 788 8-388 ng/mL HI C Diff Toxin EIA--60328 Reviewed date:11/07/2023 04:40:25 PM Interpretation: Performing Lab: Notes/Report: CDiff Toxin EIA ALCIRA Plascencia CDiff Toxin EIA t: CDiff Toxin EIA CDiff Toxin EIA Accessio [id number] CDiff Toxin EIA n: CDiff Toxin EIA [...] 21:24 CDT CDiff Toxin EIA Positive for Clostridium difficile toxin A and/or B CDiff Toxin [...] based on clinical symptoms. CDiff Toxin EIA --- CDiff Toxin EIA PROCEDURE: CDiff/Epi [i2] CDiff Toxin EIA SOURCE: Stool BODY [...] b e performed on PCR positive results. Schedule Confirmation Reviewed date:02/11/2024 03:49:12 PM Interpretation: Performing Lab: Notes/Report: CDiff/Epi--[id number] Reviewed date:02/07/2024 08:45:25 AM Interpretation: Performing Lab: Notes/Report: CDiff/Epi ALCIRA Plascencia CDiff/Epi t: CDiff/Epi CDiff/Epi Accessio [id number] CDiff/Epi n: CDiff/Epi Microbiology CDiff/Epi PROCEDURE: CDiff/Epi [i1] CDiff/Epi SOURCE: Stool BODY SITE: CDiff/Epi COLLECTED DATE/TIME: 02/06/2024 10:55 PIECE HAND RECEIVED DATE/TIME: 02/06/2024 11:31 PIECE HAND CDiff/Epi START DATE/TIME: 02/06/2024 11:31 PIECE HAND FREE TEXT SOURCE: CDiff/Epi FINAL REPORT CDiff/Epi Final Report [] CDiff/Epi Verified Date/Time: 02/06/2024 11:32 PIECE HAND CDiff/Epi 027-NAP1-BI PRESUMPT CONSTANTINE NEGATIVE CDiff/Epi Interpretive Data CDiff/Epi i1: CDiff/Epi CDiff/Epi A positive result indicates the presence of the virulent strain Clostridium difficile CDiff/Epi 027-NAP1-BI that is capable of producing toxin. It does not indicate toxin production. CDiff/Epi Toxin testing will b e performed on PCR positive results. CDiff/Epi --- CDiff/Epi PROCEDURE: CDiff Tox in EIA [i2] CDiff/Epi SOURCE: Stool BODY SITE: CDiff/Epi COLLECTED DATE/TIME: 02/06/2024 10:55 PIECE HAND RECEIVED DATE/TIME: 02/06/2024 11:31 PIECE HAND CDiff/Epi START DATE/TIME: 02/06/2024 11:31 PIECE HAND FREE TEXT SOURCE: CDiff/Epi FINAL REPORT CDiff/Epi Final Report [] CDiff/Epi Verified Date/Time: 02/06/2024 11:31 PIECE HAND CDiff/Epi Negative for Clostridium difficile toxin A and/or B CDiff/Epi Interpretive Data CDiff/Epi i2: CDiff Toxin EIA CDiff/Epi A positive result indicates that Clostidium difficule is present and is producing toxin CDiff/Epi that is responsible for C. difficile infection. Treatment of a patient yielding a positive CDiff/Epi PCR result with a negative toxin result should be based on clinical symptoms. Schedule Confirmation Reviewed date:01/14/2024 03:36:41 PM Interpretation: Performing Lab: Notes/Report: [place] [id number] Reviewed date:12/31/2023 11:18:07 AM Interpretation: Performing Lab: Notes/Report: BG 221 @0120, pt states had c-diff multiple times. bm in urine. no sample yet. 3516 @ 0150 3516 @ 0150 CRP 5.03 .40-1.00 MG/[place] CRP [id number] Reviewed date:01/01/2024 05:29:03 PM Interpretation: Performing Lab: Notes/Report: BG 221 @0120, pt states had c-diff multiple times. bm in urine. no sample yet. 3516 @ 0150 3516 @ 0150 CRP 21.74 .40-1.00 MG/DL HI CDiff/Epi--[id number] Reviewed date:11/07/2023 04:40:25 PM Interpretation: Performing Lab: Notes/Report: CDiff/Epi Marioluconrad BECKMAN ALCIRA Zachary CDiff/Epi t: CDiff/Epi CDiff/Epi Accessio [id number] CDiff/Epi n: CDiff/Epi Microbiology CDiff/Epi PROCEDURE: CDiff/Ep i [i1] CDiff/Epi SOURCE: Stool BODY SITE: CDiff/Epi [...] b e performed on PCR positive results. Schedule Confirmation Reviewed date:02/11/2024 03:48:29 PM Interpretation: Performing Lab: Notes/Report: CT Abdomen, Pelvis w/o Contrast % Iron Saturation (Fe & TIBC )--67516,10658 Reviewed date:12/29/2023 06:07:48 PM Interpretation: Performing Lab: Notes/Report: BG 221 @0120, pt states had c-diff multiple times. bm in urine. no sample yet. 3516 @ 0150 3516 @ 0150 Iron 9 50-170 MCG/DL LOW Per Iron as say instruction for Use(IFU), patients treated with metal-binding drugs (e.g.deferoxamine) may have depressed iron values as chelated iron may not properly react in the iron assay. Testing was performed with this assay method. TIBC 130 250-450 NG/DL LOW % Iron Saturation 7 20-50 % LOW CT Abdomen, Pelvis w/o Contr ast-[id number] Reviewed date:02/14/2024 09:17:51 AM Interpretation: Performing Lab: Notes/Report: See Below For Report CT Abdomen, Pelvis w/o Contrast Diagnosis Description: Urinary tract infection, site not specified Read See Below For Report Schedule Confirmation Reviewed date:02/14/2024 09:17:51 AM Interpretation: Performing Lab: Notes/Report: CT Abdomen, Pelvis w/o Contrast Basic Metabolic Panel (BMP) [id number] Reviewed date:09/03/2024 07:53:39 PM Interpretation: Performing Lab: Notes/Report: Diagnosis Description: Hypertensive chronic kidney disease with stage 1 through stage 4 chronic kidney disease, or unspecified chronic kidney disease 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 [address]. CLIA ID#: [id number] BUN 42 7-21 MG/DL HI Creat 1.80 .51-1.17 MG/DL HI E-tsgyfd-k-benzoquin one imine (NAPQI) is a metabolite of acetaminophen, [...] potential for falsely depressed results. GFR 29.8 NA Calculation pe rformed from GFR calculator provided by the [employer]. Glomerular Filtration rate(GRF) is the best overall index of kidney function. Normal GFR varies according to age,sex, body size, and declines with age. The National Kidney Foundation recommends using the CKD-EPI Creatinine Equation(2020) to estimate GFR. Anion Gap 15 5-15 BUN/Creat Ratio 23.3 12.0-20.0 % HI Calcium 9.2 8.7-10.4 MG/DL Osmo Serum,Calculated 305 280-300 MOSM/KG HI Protein (U) Random [id number] Reviewed date:08/25/2024 10:11:11 AM Interpretation: Performing Lab: Notes/Report: Diagnosis Description: Hypertensive chronic kidney disease with stage 1 through stage 4 chronic kidney disease, or unspecified chronic kidney disease Diagnosis Description: Chronic kidney disease, stage 3b Diagnosis Description: Proteinuria, unspecified Ur Prot 72.10 .00-12.00 MG/DL HI UA Reflex Micro, Reflex Cult [id number], [id number], 05534 Reviewed date:08/25/2024 10:11:11 AM Interpretation: Performing Lab: Notes/Report: Diagnosis Description: Hypertensive chronic kidney disease with stage 1 through stage 4 chronic kidney disease, or unspecified chronic kidney disease Diagnosis Description: Chronic kidney disease, stage 3b Diagnosis Description: Proteinuria, unspecified Color UA Yellow NA Clarity UA Cloudy NA Specific gravity UA 1.013 1.005-1.030 Urine pH 7.5 5.0-8.0 NA Urine Glucose Trace NA Urine Bilirubin Negative NA Urine Ketone Negative NA Urine Blood 3+ NA Urine Protein 1+ NA Urobilinogen 0.2 0.1-1.0 NA Urine Nitrite Negative NA Urine Leukocyte 3+ NA Normal UA No Urine Culture Yes Creatinine (U) 10012 Reviewed date:08/25/2024 10:11:11 AM Interpretation: Performing Lab: Notes/Report: Diagnosis Description: Hypertensive chronic kidney disease with stage 1 through stage 4 chronic kidney disease, or unspecified chronic kidney disease Diagnosis Description: Chronic kidney disease, stage 3b Diagnosis Description: Proteinuria, unspecified Ur Creat 56.8 29.0-226.0 Albumin 53926 Reviewed date:08/25/2024 10:11:11 AM Interpretation: Performing Lab: Notes/Report: Diagnosis Description: Hypertensive chronic kidney disease with stage 1 through stage 4 chronic kidney disease, or unspecified chronic kidney disease Diagnosis Description: Chronic kidney disease, stage 3b Diagnosis Description: Proteinuria, unspecified Albumin 4.3 3.2-4.8 G/DL Hemoglobin 75618 Reviewed date:08/25/2024 10:11:11 AM Interpretation: Performing Lab: Notes/Report: Diagnosis Description: Hypertensive chronic kidney disease with stage 1 through stage 4 chronic kidney disease, or unspecified chronic kidney disease Diagnosis Description: Chronic kidney disease, stage 3b Diagnosis Description: Anemia in chronic kidney disease Hgb 10.2 12.0-16.0 G/DL LOW Ferritin 12133 Reviewed date:08/25/2024 10:11:11 AM Interpretation: Performing Lab: Notes/Report: Diagnosis Description: Hypertensive chronic kidney disease with stage 1 through stage 4 chronic kidney disease, or unspecified chronic kidney disease Diagnosis Description: Chronic kidney disease, stage 3b Diagnosis Description: Anemia in chronic kidney disease Ferritin 167 8-388 ng/mL % Iron Saturation (Fe & TIBC )--66653,52986 Reviewed date:08/25/2024 10:11:11 AM Interpretation: Performing Lab: Notes/Report: Diagnosis Description: Hypertensive chronic kidney disease with stage 1 through stage 4 chronic kidney disease, or unspecified chronic kidney disease Diagnosis Description: Chronic kidney disease, stage 3b Diagnosis Description: Anemia in chronic kidney disease Iron 66 50-170 MCG/DL Per Iron as say instruction for Use(IFU), patients treated with metal-binding drugs (e.g.deferoxamine) may have depressed iron values as chelated iron may not properly react in the iron assay. Testing was performed with this assay method. TIBC 222 250-450 NG/DL LOW % Iron Saturation 30 20-50 % Basic Metabolic Panel (BMP) 75758 Reviewed date:08/25/2024 10:11:11 AM Interpretation: Performing Lab: Notes/Report: Diagnosis Description: Hypertensive chronic kidney disease with stage 1 through stage 4 chronic kidney disease, or unspecified chronic kidney disease Diagnosis Description: Chronic kidney disease, stage 3b Diagnosis Description: Hypokalemia Diagnosis Description: Hypocalcemia Sodium 140 136-145 MMOL/L Potassium 5.4 3.5-5.1 MMOL/L HI Chloride 114 98-107 MMOL/L HI CO2 19.3 20.0-31.0 MMOL/L LOW Glucose Serum 101 71-110 MG/DL Testing p erformed at [facility], [address] [place] [address] [place] [address]. CLIA ID#: [id number] BUN 44 7-21 MG/DL HI Creat 1.79 .51-1.17 MG/DL HI B-ujnlum-m-benzoquin one imine (NAPQI) is a metabolite of acetaminophen, [...] potential for falsely depressed results. GFR 29.9 NA Calculation pe rformed from GFR calculator provided by the [employer]. Glomerular Filtration rate(GRF) is the best overall index of kidney function. Normal GFR varies according to age,sex, body size, and declines with age. The [employer] recommends using the CKD-EPI Creatinine Equation(2020) to estimate GFR. Anion Gap 12 5-15 BUN/Creat Ratio 24.6 12.0-20.0 % HI Calcium 8.8 8.7-10.4 MG/DL Osmo Serum,Calculated 301 280-300 MOSM/KG HI Phosphorus (B) 32142 Reviewed date:08/25/2024 10:11:11 AM Interpretation: Performing Lab: Notes/Report: Diagnosis Description: Hypertensive chronic kidney disease with stage 1 through stage 4 chronic kidney disease, or unspecified chronic kidney disease Diagnosis Description: Chronic kidney disease, stage 3b Phos 4.0 2.4-5.1 MG/DL PTH Intact 71196 Reviewed date:08/25/2024 10:11:11 AM Interpretation: Performing Lab: Notes/Report: Diagnosis Description: Hypertensive chronic kidney disease with stage 1 through stage 4 chronic kidney disease, or unspecified chronic kidney disease Diagnosis Description: Chronic kidney disease, stage 3b PTH Intact 49.9 18.4-88.0 pg/mL Performed on the Siemens Atellica Solution IM Uric Acid (B) 71800 Reviewed date:08/25/2024 10:11:11 AM Interpretation:appt 08/24/24 Performing Lab: Notes/Report: Diagnosis Description: Hypertensive chronic kidney disease with stage 1 through stage 4 chronic kidney disease, or unspecified chronic kidney disease Diagnosis Description: Chronic kidney disease, stage 3b Uric Acid 8.0 2.6-6.0 MG/DL HI CRP 66486 Reviewed date:01/06/2024 05:59:54 PM Interpretation: Performing Lab: Notes/Report: BG 221 @0120, pt states had c-diff multiple times. bm in urine. no sample yet. 3516 @ 0150 3516 @ 0150 CRP 3.53 .40-1.00 MG/DL HI C Diff Toxin EIA--90225 Reviewed date:02/07/2024 08:45:25 AM Interpretation: Performing Lab: Notes/Report: CDiff Toxin EIA ALCIRA Plascencia CDiff Toxin EIA t: CDiff Toxin EIA CDiff Toxin EIA Accessio [id number] CDiff Toxin EIA n: CDiff Toxin EIA Microbiology CDiff Toxin EIA PROCEDURE: CDiff Tox in EIA [i1] CDiff Toxin EIA SOURCE: Stool BODY SITE: CDiff Toxin EIA COLLECTED DATE/TIME: 02/06/2024 10:55 PIECE HAND RECEIVED DATE/TIME: 02/06/2024 11:31 PIECE HAND CDiff Toxin EIA START DATE/TIME: 02/06/2024 11:31 PIECE HAND FREE TEXT SOURCE: CDiff Toxin EIA FINAL REPORT CDiff Toxin EIA Final Report [] CDiff Toxin EIA Verified Date/Time: 02/06/2024 11:31 PIECE HAND CDiff Toxin EIA Negative for Clostridium difficile toxin A and/or B CDiff Toxin [...] result should be based on clinical symptoms. Schedule Confirmation Reviewed date:02/11/2024 03:49:12 PM Interpretation: Performing Lab: Notes/Report: UA Microscopic--91009 Reviewed date:08/25/2024 10:11:11 AM Interpretation:earl 08/24/24 Performing Lab: Notes/Report: RBC U 198 NA WBC U 351 0-5 /HPF HI Bacteria 1+ Hyaline Casts 4 NA SQ EPI 1 NA Culture Urine Reflex--[id number] Reviewed date:08/25/2024 10:11:11 AM Interpretation: Performing Lab: Notes/Report: Culture Urine Reflex SHE Plascencia Culture Urine Reflex t: Culture Urine Reflex Culture Urine Reflex Accessio [id number] Culture Urine Reflex n: Culture Urine Reflex [...] isms present Culture Urine Reflex Probable contamination Reason For Referral Reason Nodules of Lung - osei spected malignancy - [facility] Scheduled 11/26/23 @ 10:50 AM Diagnosis 1 Other nonspecific ab normal finding of lung field (R91.8) Referring Provider First Name Celia Referring Provider Last Name Heriberto Referring Provider Speciality Family Med icine Referred Organization [facility] Referred Provider Corky Lorenzo Referred Address [address] [place] [address] [address] [place],[address],[place] Referred Provider Specialty Pulmonary Di seases General Notes Yolanda Stephens 024 04:05:05 PM >Scheduled 11/26/23 @ 10:50 AM Referral Priority Stat Reason Eval and treat Chr onic Diarrhea Is now cleared from C- diff Diagnosis 1 C. difficile diarrhe a (A04.72) Referral Organization [facility] Referring Provider First Name Abelardo Referring Provider Last Name Mariposa Referring Provider Speciality Infectious Disease Referred Organization [facility] Referred Provider [facility] Referred Address [address] [place],[address] Referred Provider Specialty Gastroentero logy Referral Priority Routine Reason Eval and treat Mes entery Lymphoma Diagnosis 1 Lymphoma, non-Hodgki n's (C85.90) Referral Organization [facility] Referring Provider First Name Abelardo Referring Provider Last Name Mariposa Referring Provider Speciality Infectious Disease Referred Provider [facility] Referred Provider Specialty Oncology Referral Priority Routine Medications Medication SIG (Take, Route, Frequency, Duration) Notes Start Date End Date Status Sodium Chloride 0.9 % Solution Intravenous; Duration: 4 Days Not-Taking Vancomycin HCl 125 MG Capsule 1 capsule Orally every 6 hours 01/09/2024 Not-Taking Probiotic Acidophilus Not-Taking Lisinopril 20 MG Tablet 1 tablet Orally Once a day; Duration: 30 days Active Procardia XL 30 MG Tablet Extended Release 24 Hour 1 tablet Orally Once a day; Duration: 7 days 01/24/2024 Not-Taking hydrALAZINE HCl 25 MG Tablet 1 tablet with food Orally Twice a day; Duration: 90 days 08/31/2024 Active Plavix Not-Taking Atorvastatin Calcium 40 MG Tablet TAKE 1 TABLET BY MOUTH ONCE DAILY Oral; Duration: 30 Days Active Baby Aspirin Active Acidophilus - Capsule as directed Orally Active FeroSul 325 (65 Fe) MG Tablet TAKE 1 TABLET BY MOUTH TWICE DAILY Oral; Duration: 90 Days Active BD PosiFlush 0.9 % Solution Intravenous; Duration: 4 Days Active Fluconazole 150 MG Tablet 1 tablet Orally Sat,Sat,Sat Active Metoprolol Succinate ER 50 MG Tablet Extended Release 24 Hour Oral; Duration: 90 Days Active Midodrine HCl 5 MG Tablet 1 tablet Orally Three times a day 01/09/2024 Not-Taking NIFEdipine ER 30 MG Tablet Extended Release 24 Hour 1 tablet on an empty stomach Orally Once a day Not-Taking glyBURIDE 2.5 MG Tablet 1 tablet with breakfast or the first main meal of the day Oral Once a day; Duration: 90 days Active Levothyroxine Sodium 88 MCG Tablet 1 tablet in the morning on an empty stomach Oral Once a day; Duration: 90 days Active Aspirin 81 MG Capsule 1 capsule Orally Once a day Not-Taking Cefdinir 300 MG Capsule as directed Oral ly Once a day Not-Taking Tamsulosin HCl 0.4 MG Capsule Oral; Duration: 90 Days Active Heparin Na (Pork) Lock Flsh PF 100 UNIT/ML Solution Intravenous; Duration: 4 Days Not-Taking Lactobacillus Not-Ta linda cefTRIAXone Sodium 2 GM Solution Reconstituted as directed Injection Not-Taking Dificid 200 MG Tablet 1 tablet Orally Twice a day; Duration: 10 days Not-Taking Fluconazole 150 MG Tablet 1 tablet Orally Saturday,Sat,Sat Active Acetaminophen Extra Strength 500 MG Tablet 1 tablet as needed Orally every 6 hrs as needed Active Loperamide HCl Not-T aking Magnesium Oxide 400 MG Tablet 1 tablet as needed Orally BID 01/09/2024 Not-Taking Social History Tobacco Use: Social History Observation Description Date Details (start date - stop date) Former Smoker NA - NA Social History Drugs/Alcohol: Social Info Question Answer Notes Drugs Have you used drugs other than those for medical reasons in the past 12 months? No Tobacco Use: Social Info Question Answer Notes Tobacco Control (Standard) Tobacco use: Former smoker How long has it been since you last smoked? 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 confirmed Problem Anemia in chronic kidney disease (960548719) Anemia in chronic kidney disease (D63.1) Active confirmed Problem Hypomagnesemia (295103522) Hypomagnesemia (E83.42) Active confirmed Problem Hypocalcemia (8102989) Hypocalcemia (E83.51) Active confirmed Problem Tobacco user (584354521) Nicotine dependence, cigarettes, in remission (F17.211) Active confirmed Problem Chronic kidney disease due to hypertension (125776203380060) Hypertensive chronic kidney disease with stage 1 through stage 4 chronic kidney disease, or unspecified chronic kidney disease (I12.9) Active confirmed Problem Chronic kidney disease stage 4 (521394611) Chronic kidney disease, stage 4 (severe) (N18.4) Active confirmed Problem Urogenital implant (569347995) Presence of urogenital implants (Z96.0) Active confirmed Problem Essential hypertension (54558781) Essential hypertension (I10) Active confirmed Problem Type II diabetes mellitus without complication (611040890) Type 2 diabetes mellitus without complication, without long-term current use of insulin (E11.9) Active confirmed Problem Microscopic hematuria (539772598) Microscopic hematuria (R31.29) Active confirmed Problem Hypophosphatemia (4927952) Hypophosphatemia (E83.39) Active confirmed Problem Vitamin D deficiency (50873054) Vitamin D deficiency (E55.9) Active confirmed Problem Obstructive sleep apnea syndrome (17724816) MATT (obstructive sleep apnea) (G47.33) Active confirmed Problem Malignant tumor of urinary bladder (192988074) Malignant neoplasm of urinary bladder, unspecified site (C67.9) Active confirmed Problem Leukocytosis (726219468) Leukocytosis, unspecified (D72.829) Active confirmed Problem Non-Hodgkin lymphoma (326861076) Lymphoma, non-Hodgkin's (C85.90) Active confirmed Problem Recurrent urinary tract infection (443687193) Recurrent UTI (N39.0) Active confirmed Problem Iron deficiency anemia (49543080) Iron deficiency anemia (D50.9) Active confirmed Problem Lung field abnormal (578289422) Multiple pulmonary nodules determined by computed tomography of lung (R91.8) Active confirmed Problem History of hematuria (207719437) History of hematuria (Z87.448) Active confirmed Problem Bilateral hydronephrosis (77941228) Bilateral hydronephrosis (N13.30) Active confirmed Problem Chronic renal failure syndrome (94056919) Chronic kidney failure (N18.9) Active confirmed Problem Personal history of primary malignant neoplasm of female genital organ (114506938) History of endometrial cancer (Z85.42) Active confirmed Problem Hydronephrosis (91963100) Hydronephrosis, left (N13.30) Active confirmed Problem Diabetes type 2 with nephropathy (237783340) 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) Active confirmed Problem Bladder mass (174878538) Bladder mass (N32.89) Active confirmed Problem Retention of urine (383599898) History of urinary retention (Z87.898) Active confirmed Problem Nephrosclerosis (56599867) Atrophic kidney (N26.1) Active confirmed Problem Hydronephrosis with ureteral calculus (N13.2) Active confirmed Problem Diabetic renal disease (469503511) 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) Active confirmed Problem Chronic kidney disease stage 3B (disorder) (272260997) Chronic kidney disease, stage 3b (N18.32) Active confirmed Problem Chronic kidney disease stage 3B (disorder) (736744113) Stage 3b chronic kidney disease (N18.32) Active confirmed Problem History of sepsis (527690011304356) History of sepsis (Z86.19) Active confirmed Problem Ureteral stent present (Z96.0) Active confirmed Problem Renal tubulo-interstitial disease (799624356) Renal tubulo-interstitia l disease (N15.9) Active confirmed Problem History of lymphoma (776041533) History of lymphoma (Z85.72) Active confirmed Vital Signs Heart Rate 74 /min 08/24/2024 Temperature 97.5 degrees Fahrenheit 08/24/2024 Respiratory Rate 16 /min 08/24/2024 Oximetry 99 % 08/24/2024 Height-cm 160.02 cm 08/24/2024 Blood pressure diastolic 50 mm Hg 08/24/2024 Weight-kg 98.2 kg 08/24/2024 Height 63 in 08/24/2024 Blood pressure systolic 130 mm Hg 08/24/2024 Weight 216.49 lbs 08/24/2024 BMI 38.35 kg/m2 08/24/2024 Encounters Encounter Location Date Provider Diagnosis [facility] [address] [place] [address], [place] [address] 01/14/2024 Amrita Prasad Former smoker Z87.891 ; Multiple pulmonary nodules determined by computed tomography of lung R91.8 ; Complicated UTI (urinary tract infection) N39.0 ; Clostridium difficile infection A49.8 ; Pyelonephritis N12 ; Lymphoma, non-Hodgkin's C85.90 ; Chronic kidney failure N18.9 and Chronic kidney disease, stage 3b N18.32 [facility] [address] [place] [address] [place] [address] 01/14/2024 Corky Bj Former smoker Z87.891 and Multiple pulmonary nodules determined by computed tomography of lung R91.8 [facility] [address] [place] [address] 12/10/2023 Corky Malte Former smoker Z87.891 and Multiple pulmonary nodules determined by computed tomography of lung R91.8 [facility] [address] [place] [address], [place] [address] 08/24/2024 Abelardo Monge Complicated UTI (urinary tract infection) N39.0 ; Clostridium difficile infection A49.8 ; Pyelonephritis N12 ; Lymphoma, non-Hodgkin's C85.90 ; Chronic kidney failure N18.9 and Chronic kidney disease, stage 3b N18.32 [facility] [address] [place] [address] Dr [address] [place] [address] 08/24/2024 Nish Martin Type 2 diabetes with [...] Nephrotic range proteinuria R80.9 and Hyperuricemia E79.0 [facility] [address] [place] [address], [place] [address] 05/26/2024 Abelardo Mogne Complicated UTI (urinary tract infection) N39.0 ; Clostridium difficile infection A49.8 ; Pyelonephritis N12 ; Lymphoma, non-Hodgkin's C85.90 ; Chronic kidney failure N18.9 and Chronic kidney disease, stage 3b N18.32 [facility] [address] [place] [address] Dr [address] [place] [address] 04/08/2024 Patricia Ramírezff Chronic kidney disease, stage 3b N18.32 ; Hypertensive chronic kidney disease with stage 1 through stage 4 chronic kidney disease, or unspecified chronic kidney disease I12.9 ; Proteinuria, unspecified type R80.9 ; Essential hypertension I10 ; Type 2 diabetes with nephropathy E11.21 ; Hypokalemia E87.6 ; Hypocalcemia E83.51 and Anemia in chronic kidney disease D63.1 [facility] [address] [place] [address], [place] [address] 02/13/2024 Abelardo Monge Complicated UTI (urinary tract infection) N39.0 ; Clostridium difficile infection A49.8 ; Pyelonephritis N12 ; Lymphoma, non-Hodgkin's C85.90 ; Chronic kidney failure N18.9 and Chronic kidney disease, stage 3b N18.32 [facility] [address] [place] [address], [place] [address] 02/10/2024 Amrita Osmar Complicated UTI (urinary tract infection) N39.0 ; Clostridium difficile infection A49.8 ; Pyelonephritis N12 ; Lymphoma, non-Hodgkin's C85.90 ; Chronic kidney failure N18.9 and Chronic kidney disease, stage 3b N18.32 [facility] [address] [place] [address], [place] [address] 02/06/2024 Amrita [place] Complicated UTI (urinary tract infection) N39.0 ; Clostridium difficile infection A49.8 ; Pyelonephritis N12 ; Lymphoma, non-Hodgkin's C85.90 ; Chronic kidney failure N18.9 and Chronic kidney disease, stage 3b N18.32 [facility] [address] [place] [address], [place] [address] 01/09/2024 Amrita [place] Complicated UTI (urinary tract infection) N39.0 ; Clostridium difficile infection A49.8 ; Pyelonephritis N12 ; Lymphoma, non-Hodgkin's C85.90 ; Chronic kidney failure N18.9 and Chronic kidney disease, stage 3b N18.32 [facility] [address] [place] [address], [place] [address] 04/14/2024 Abelardo Monge Complicated UTI (urinary tract infection) N39.0 ; Clostridium difficile infection A49.8 ; Pyelonephritis N12 ; Lymphoma, non-Hodgkin's C85.90 ; Chronic kidney failure N18.9 and Chronic kidney disease, stage 3b N18.32 [facility] [address] [place] [address] 07/22/2024 Solomon Sanchez Chronic diarrhea K52.9 ; [...] F17.211 and MATT (obstructive sleep apnea) G47.33 [facility] [address] [place] [address] Dr [address] [place] [address] 11/29/2023 Mansi Oliva Proteinuria, unspecified type R80.9 ; Chronic kidney disease, stage 3b N18.32 ; Essential hypertension I10 and Type 2 diabetes with nephropathy E11.21 [facility] [address] [place] [address], [place] [address] 01/30/2024 Amrita Deeol Complicated UTI (urinary tract infection) N39.0 ; Clostridium difficile infection A49.8 ; Pyelonephritis N12 ; Lymphoma, non-Hodgkin's C85.90 ; Chronic kidney failure N18.9 and Chronic kidney disease, stage 3b N18.32 [facility] [address] [place] [address], [place] [address] 01/24/2024 Amrita Mendozapool Former smoker Z87.891 ; Multiple pulmonary nodules determined by computed tomography of lung R91.8 ; Complicated UTI (urinary tract infection) N39.0 ; Clostridium difficile infection A49.8 ; Pyelonephritis N12 ; Lymphoma, non-Hodgkin's C85.90 ; Chronic kidney failure N18.9 and Chronic kidney disease, stage 3b N18.32 [facility] [address] [place] [address] [place] [address] 11/26/2023 Corky Lorenzo Nicotine dependence, cigarettes, in remission F17.211 and Multiple pulmonary nodules determined by computed tomography of lung R91.8 [facility] [address] [place] [address] Dr [address] [place] [address] 08/31/2024 Nish Martin Chronic kidney disease, stage 3b N18.32 and Hyperkalemia E87.5 [facility] [address] [place] [address] Dr [place] [address] 08/18/2024 Patricia Cristina [facility] [address] [place] [address] [place] [address] 01/02/2024 Corky Lorenzo [facility] [address] [place] [address] [place] [address] 12/04/2023 Corky Lorenzo [facility] [address] [place] [address] [place] [address] 05/04/2024 [facility] [address] [place] [address] 04/27/2024 [facility] [address] [place] [address] 04/20/2024 [facility] [address] [place] [address] 04/17/2024 Patricia Hansondrakefelicitas Vitamin D deficiency E55.9 [facility] [address] [place] [address] 04/02/2024 [facility] [address] [place] [address] 03/30/2024 Jen Caldwell [facility] [address] [place] [address] 02/28/2024 [facility] [address] [place] [address] 02/28/2024 [facility] [address] [place] [address] 02/28/2024 [facility] [address] [place] [address] 02/24/2024 [facility] [address] [place] [address] 02/18/2024 [facility] [address] [place] [address] 02/13/2024 [facility] [address] [place] [address] 02/11/2024 [facility] [address] [place] [address] 02/11/2024 [facility] [address] [place] [address] 02/10/2024 [facility] Complicated UTI (urinary tract infection) N39.0 ; Pyelonephritis N12 and Clostridium difficile infection A49.8 [facility] [address] [place] [address], [place] [id number] 02/07/2024 [facility] [address] [place] [address], [place] [id number] 01/30/2024 [facility] [address] [place] [address] [place] [address] 01/17/2024 Mansi Oliva [facility] [address] [place] [address] 01/10/2024 Nish Martin [facility] [address] [place] [address] 10/27/2024 Nish Martin [facility] [address] [place] [address] 10/26/2024 Nish Martin Assessments Encounter Date Diagnosis (ICD Code) Assessment Notes Treatment Notes Treatment Clinical Notes Section Notes 02/10/2024 Complicated UTI (urinary tract infection) (ICD-10 - N39.0) 02/10/2024 Pyelonephritis (ICD-10 - N12) 01/14/2024 Former smoker (ICD-10 - Z87.891) Patient smoked cigarettes for about a year before quitting in 1979. 02/10/2024 Complicated UTI (urinary tract infection) (ICD-10 [...] 4 weeks Completed treatment 01-14-24; W 12.6, Non Destructive Evaluation Manager 1.46, Crp 5.68 01-24-24; W 7.7, Non Destructive Evaluation Manager 1.48, Crp 3.13 3. C. diff, PCR, and toxin positive admission 12-26-23; - This is her second recurrence of C. difficile 4. Continued loose stools 02-10-24; W 8.9, Non Destructive Evaluation Manager 1.73, Crp 2.12 Working on approval for FMT Davidkiley She continues to have increased loose stools, begin Dificid, will await pending cultures DC Imodium 5. Dysuria - Give Invanz 1 gm IM today Will recheck urine studies and labs today, order CT scan abd/pelvis She will need continued UTI prophylaxis plan for Augmentin with vancomycin 01/30/2024 Complicated UTI (urinary tract infection) (ICD-10 - N39.0) 1. Recurrent, complicated UTI's/Pyelonep hritis - 24; UW 816, UC a very sensitive Proteus, 11-29-23 UC Proteus, and Ec both VS - She is asymptomatic today - has stents in place 2. Antibiotics day #28 s/p stent exchange: Rocephin, Changed to p.o. Augmentin (last 5 days)- duration of therapy 4 weeks EOT 01-14-24; W 12.6, Non Destructive Evaluation Manager 1.46, Crp 5.68 01-24-24; W 7.7, Non Destructive Evaluation Manager 1.48, Crp 3.13 3. C. diff, PCR, and toxin positive admission 12-26-23; 01-30-24; Check surveillance urine studies and check stools for cdiff - This is her second recurrence of C. difficile, on her third reoccurrence she will qualify for FMT Sada Hold off on UTI prophylaxis Will recheck [...] UW 816, UC a very sensitive Proteus, 11-28-24 UC Proteus, and Ec both VS - She is asymptomatic today - has stents in place 2. Antibiotics day #28 s/p stent exchange: Rocephin, Changed to p.o. Augmentin (last 5 days)- duration of therapy 4 weeks EOT --24 24; W 12.6, Non Destructive Evaluation Manager 1.46, Crp 5.68 01-24-24; W 7.7, Non Destructive Evaluation Manager 1.48, Crp 3.13 3. C. diff, PCR, [...] vancomycin Will discuss with Dr. Monge 02/06/2024 Complicated UTI (urinary tract infection) (ICD-10 [...] therapy 4 weeks EOT -01-14-24; W 12.6, Non Destructive Evaluation Manager 1.46, Crp 5.68 01-24-24; W 7.7, Non Destructive Evaluation Manager 1.48, Crp 3.13 3. C. diff, PCR, [...] cultures Check labs today and follow-up on Saturday01/14/2024 Former smoker (ICD-10 - Z87.891) 1. Recurrent, complicated UTI's/Pyelonep hritis - 12-25-23; UW 816, UC a very sensitive Proteus, 11-29-23 UC Proteus, and Ec both VS - She is asymptomatic today - has stents in place 2. Antibiotics day #18 s/p stent exchange: Rocephin- duration of therapy 4 weeks 01-13-; W 12.6, Non Destructive Evaluation Manager 1.46, Crp 5.68 3. C. diff, PCR, [...] dose of IV Rocephin, daughter is paying [id number] for the last 4 doses We will [...] therapy 4 weeks EOT --01-14-24; W 12.6, Non Destructive Evaluation Manager 1.46, Crp 5.68 01-24-24; W 7.7, Non Destructive Evaluation Manager 1.48, Crp 3.13 3. C. diff, PCR, [...] with vancomycin Will discuss with Dr. Monge 11/26/2023 Nicotine dependence, cigarettes, in remission (ICD-10 - F17.211) She will smoked cigarettes for about a year before quitting in 1979. 11/26/2023 Multiple pulmonary nodules determined by computed tomography of lung (ICD-10 - R91.8) Obtain copies of prior chest CT imaging from [facility] as well as in [place], [place]. Also obtain PET/CT images from [place] and [place]. We will compare to CT images from the ones we have here in our hospital obtained on November 04, 2023. If there is any sign of enlarging nodules she would need a biopsy. Risk factors include known history of lymphoma as well as remote smoking 11/29/2023 Proteinuria, unspecified type (ICD-10 - R80.9) Chronic kidney disease stage IIIb based on current labs available, CKD likely due to chronic obstruction, Hypertension, Diabetes and Age. Hypertension is controlled. Diabetes is controlled by report. Following with urology for ureteral stent exchanges and chronic UTI. Proteinuria is likely d/t UTI. 11/29/2023 Chronic kidney disease, stage 3b (ICD-10 [...] about a year before quitting in 1979. 01/09/2024 Complicated UTI (urinary tract infection) (ICD-10 - N39.0) 1. Recurrent, complicated UTI's/Pyelonep hritis - 1024; UW 816, UC a very sensitive Proteus, [...] dose of IV Rocephin, daughter is paying [id number] for the last 4 doses We will [...] dose of IV Rocephin, daughter is paying [id number] for the last 4 doses We will administer her last dose of Rocephin here in the office on January 23 and then DC PICC line Follow-up in 1 week 02/13/2024 Complicated UTI (urinary tract infection) (ICD-10 [...] of mysentary lymphoma Labs 02-06-24 W 8.9, Non Destructive Evaluation Manager 1.73, CRP 2.12 CDiff Negative for Clostridium difficile toxin A and/or B , CDiff /Epi NAP1-BI PRESUMPTIVE NEGATIVE , 02-10-24 UM RBC U 6, WBC U 637, Fernanda 3+, Hyaline cast 4, SQ epi 6, UC >100,000 cfu/ml. Citrobacter farmeri FOLLOW UP:2 months [facility] 04/08/2024 Chronic kidney disease, stage 3b (ICD-10 [...] below goal with unknown iron status. 04/08/2024 Hypertensive chronic kidney disease with stage [...] of mysentary lymphoma Labs 02-06-24 W 8.9, Non Destructive Evaluation Manager 1.73, CRP 2.12 CDiff Negative for Clostridium [...] waiting to see a Neurologist. -Hospitalized in [place] 3. Recurrent complicated UTI's - stents in [...] of mysentary lymphoma Labs 02-06-24 W 8.9, Non Destructive Evaluation Manager 1.73, CRP 2.12 CDiff Negative for Clostridium [...] now non-nephrotic. Hyperuricemia is currently asymptomatic 08/24/2024 Complicated UTI (urinary tract infection) (ICD-10 - N39.0) 1. 68 yo white female with a history of chronic kidney disease, hyperlipidemia , hypertension, hypothyroidism , microcytic anemia, morbid obesity, type 2 diabetes with vascular disease, endometrial cancer, lymphoma and sleep apnea. 2.Hx of stroke 05-11-24 and waiting to see a Neurologist. -Hospitalized in [place] 3. Recurrent complicated UTI's - stents in place 11-03-23 - new stents were placed 03-28-2024 4. UTI Prophylaxis; - 08-24-24 continue Cefdinir 1 pill Mon, Wed, Fri (start date 05-28-24) Labs 02-10-24 UM RBC U 6, WBC U 637, Fernanda 3+, Hyaline cast 4, SQ epi 6, UC >100,000 cfu/ml. Citrobacter farmeri 08-16-24 UC Neg, UM WBC U 351, Non Destructive Evaluation Manager 1.79, Hgb 10.2, Ur Prot 72.10, Uric acid 8.0 Follow up; 3 months [facility] 08/31/2024 Chronic kidney disease, stage 3b (ICD-10 [...] waiting to see a Neurologist. -Hospitalized in [place] 3. Recurrent complicated UTI's - stents in place 11-03-23 - new stents were placed 03-28-2024 4. UTI Prophylaxis; - 08-24-24 continue Cefdinir 1 pill Mon, Wed, Fri (start date 05-28-24) Labs 02-10-24 UM RBC U 6, WBC U 637, Fernanda 3+, Hyaline cast 4, SQ epi 6, UC >100,000 cfu/ml. Citrobacter farmeri 08-16-24 UC Neg, UM WBC U 351, Non Destructive Evaluation Manager 1.79, Hgb 10.2, Ur Prot 72.10, Uric acid 8.0 Follow up; 3 months [facility] 08/24/2024 Chronic kidney disease, stage 3b (ICD-10 [...] waiting to see a Neurologist. -Hospitalized in [place] 3. Recurrent complicated UTI's - stents in place 11-03-23 - new stents were placed 03-28-2024 -Treated for UTI in 2024 while in hospital -05-28-24 asymptomatic today 4. UTI Prophylaxis; - Rx for Cefdinir called into pharmacy for UTI prophylaxis Sig; 1 pill Sat, Wed, Sat (start date 05-28-24) -pt is to call clinic if unable to afford this 5. C Difficile Prophylaxis; - 05-28-24 pt could not afford Vanco or Deficid so didnt take any. -05-28-24 still having intermitten diarrhea 6. Continued intermitten diarrhea, GI appt; scheduled in August 03, 2024 -consult to see Oncologist, hx of mysentary lymphoma Labs 02-06-24 W 8.9, Non Destructive Evaluation Manager 1.73, CRP 2.12 CDiff Negative for Clostridium [...] of mysentary lymphoma Labs 02-06-24 W 8.9, Non Destructive Evaluation Manager 1.73, CRP 2.12 CDiff Negative for Clostridium difficile toxin A and/or B , CDiff /Epi NAP1-BI PRESUMPTIVE NEGATIVE , 02-10-24 UM RBC U 6, WBC U 637, Fernanda 3+, Hyaline cast 4, SQ epi 6, UC >100,000 cfu/ml. Citrobacter farmeri Follow up; 6 weeks [facility] Cruz 04/08/2024 Proteinuria, unspecified type (ICD-10 - [...] of mysentary lymphoma Labs 02-06-24 W 8.9, Non Destructive Evaluation Manager 1.73, CRP 2.12 CDiff Negative for Clostridium [...] of mysentary lymphoma Labs 02-06-24 W 8.9, Non Destructive Evaluation Manager 1.73, CRP 2.12 CDiff Negative for Clostridium difficile toxin A and/or B , CDiff /Epi NAP1-BI PRESUMPTIVE NEGATIVE , 02-10-24 UM RBC U 6, WBC U 637, Fernanda 3+, Hyaline cast 4, SQ epi 6, UC >100,000 cfu/ml. Citrobacter farmeri [facility] Pyelonephritis (ICD-10 - N12) 1. Recurrent, [...] dose of IV Rocephin, daughter is paying [id number] for the last 4 doses We will administer her last dose of Rocephin here in the office on January 23 and then DC PICC line Follow-up in 1 week 12/10/2023 Multiple pulmonary nodules determined by computed [...] chronic UTI. Proteinuria is likely d/t UTI. 01/24/2024 Multiple pulmonary nodules determined by computed [...] therapy 4 weeks EOT 01-14-24; W 12.6, Non Destructive Evaluation Manager 1.46, Crp 5.68 01-24-24; W 7.7, Non Destructive Evaluation Manager 1.48, Crp 3.13 3. C. diff, PCR, [...] vancomycin Will discuss with Dr. Monge 01/14/2024 Multiple pulmonary nodules determined by computed tomography of lung (ICD-10 - R91.8) 1. Recurrent, complicated UTI's/Pyelonep hritis - 12-25-23; UW 816, UC a very sensitive Proteus, 11-29-23 UC Proteus, and Ec both VS - She is asymptomatic today - has stents in place 2. Antibiotics day #18 s/p stent exchange: Rocephin- duration of therapy 4 weeks 01-13-; W 12.6, Non Destructive Evaluation Manager 1.46, Crp 5.68 3. C. diff, PCR, [...] dose of IV Rocephin, daughter is paying [id number] for the last 4 doses We will administer her last dose of Rocephin here in the office on January 23 and then DC PICC line 4. Severe abdominal yeast candidiasis Begin Fluconazole 100 mg 1 dose every 3 days for 3 doses Continue to wound care/Interdry Check urine studies today Follow-up in 1 week 02/06/2024 Clostridium difficile infection (ICD-10 - A49.8) [...] days)- duration of therapy 4 weeks EOT 11--24 24; W 12.6, Non Destructive Evaluation Manager 1.46, Crp 5.68 01-24-24; W 7.7, Non Destructive Evaluation Manager 1.48, Crp 3.13 3. C. diff, PCR, [...] cultures Check labs today and follow-up on Saturday01/30/2024 Pyelonephritis (ICD-10 - N12) 1. Recurrent, complicated UTI's/Pyelonep hritis - 12-25-23; UW 816, UC a very sensitive Proteus, 11-29-23 UC Proteus, and Ec both VS - She is asymptomatic today - has stents in place 2. Antibiotics day #28 s/p stent exchange: Rocephin, Changed to p.o. Augmentin (last 5 days)- duration of therapy 4 weeks EOT 01-14-24; W 12.6, Non Destructive Evaluation Manager 1.46, Crp 5.68 01-24-24; W 7.7, Non Destructive Evaluation Manager 1.48, Crp 3.13 3. C. diff, PCR, [...] with vancomycin Will discuss with Dr. Monge 02/10/2024 Clostridium difficile infection (ICD-10 - A49.8) Stools [...] 4 weeks Completed treatment 01-14-24; W 12.6, Non Destructive Evaluation Manager 1.46, Crp 5.68 01-24-24; W 7.7, Non Destructive Evaluation Manager 1.48, Crp 3.13 3. C. diff, PCR, and toxin positive admission 12-26-23; - This is her second recurrence of C. difficile 4. Continued loose stools 02-10-24; W 8.9, Non Destructive Evaluation Manager 1.73, Crp 2.12 Working on approval for FMT Sada She continues to have increased loose stools, begin Dificid, will await pending cultures DC Imodium 5. Dysuria - Give Invanz 1 gm IM today Will recheck urine studies and labs today, order CT scan abd/pelvis She will need continued UTI prophylaxis plan for Augmentin with vancomycin 01/14/2024 Multiple pulmonary nodules determined by computed tomography of lung (ICD-10 - R91.8) Resolved. No further workup needed. I suspect these may have represented septic emboli. She completed a course of antibiotics for pyelonephritis. 02/10/2024 Clostridium difficile infection (ICD-10 - A49.8) 02/10/2024 Pyelonephritis (ICD-10 - N12) 1. Recurrent, complicated UTI's/Pyelonep hritis - 12-25-23; UW 816, UC a very sensitive Proteus, 11-29-23 UC Proteus, and Ec both VS - She is asymptomatic today - has stents in place 2. Antibiotics day #28 s/p stent exchange: Rocephin, Changed to p.o. Augmentin (last 5 days)- duration of therapy 4 weeks Completed treatment 24; W 12.6, Non Destructive Evaluation Manager 1.46, Crp 5.68 01-24-24; W 7.7, Non Destructive Evaluation Manager 1.48, Crp 3.13 3. C. diff, PCR, and toxin positive admission 12-26-23; - This is her second recurrence of C. difficile 4. Continued loose stools 02-10-24; W 8.9, Non Destructive Evaluation Manager 1.73, Crp 2.12 Working on approval for FMT Sada She continues to have increased loose stools, begin Dificid, will await pending cultures DC Imodium 5. Dysuria - Give Invanz 1 gm IM today Will recheck urine studies and labs today, order CT scan abd/pelvis She will need continued UTI prophylaxis plan for Augmentin with vancomycin 01/30/2024 Lymphoma, non-Hodgkin's (ICD-10 - C85.90) 1. Recurrent, complicated UTI's/Pyelonep hritis - 12-25-23; UW 816, UC a very sensitive Proteus, 11-29-23 UC Proteus, and Ec both VS - She is asymptomatic today - has stents in place 2. Antibiotics day #28 s/p stent exchange: Rocephin, Changed to p.o. Augmentin (last 5 days)- duration of therapy 4 weeks EOT --24 24; W 12.6, Non Destructive Evaluation Manager 1.46, Crp 5.68 01-24-24; W 7.7, Non Destructive Evaluation Manager 1.48, Crp 3.13 3. C. diff, PCR, [...] vancomycin Will discuss with Dr. Monge 02/06/2024 Pyelonephritis (ICD-10 - N12) 1. Recurrent, complicated UTI's/Pyelonep hritis - 12-25-23; UW 816, UC a very sensitive Proteus, 11-29-23 UC Proteus, and Ec both VS - She is asymptomatic today - has stents in place 2. Antibiotics day #28 s/p stent exchange: Rocephin, Changed to p.o. Augmentin (last 5 days)- duration of therapy 4 weeks EOT --24 24; W 12.6, Non Destructive Evaluation Manager 1.46, Crp 5.68 01-24-24; W 7.7, Non Destructive Evaluation Manager 1.48, Crp 3.13 3. C. diff, PCR, [...] cultures Check labs today and follow-up on Saturday01/14/2024 Complicated UTI (urinary tract infection) (ICD-10 - N39.0) 1. Recurrent, complicated UTI's/Pyelonep hritis - 12-25-23; UW 816, UC a very sensitive Proteus, 11-29-23 UC Proteus, and Ec both VS - She is asymptomatic today - has stents in place 2. Antibiotics day #18 s/p stent exchange: Rocephin- duration of therapy 4 weeks 01-14-24; W 12.6, Non Destructive Evaluation Manager 1.46, Crp 5.68 3. C. diff, PCR, [...] dose of IV Rocephin, daughter is paying [id number] for the last 4 doses We will [...] UW 816, UC a very sensitive Proteus, 96-24 UC Proteus, and Ec both VS - She is asymptomatic today - has stents in place 2. Antibiotics day #28 s/p stent exchange: Rocephin, Changed to p.o. Augmentin (last 5 days)- duration of therapy 4 weeks EOT 11--24 01-14-24; W 12.6, Non Destructive Evaluation Manager 1.46, Crp 5.68 01-24-24; W 7.7, Non Destructive Evaluation Manager 1.48, Crp 3.13 3. C. diff, PCR, [...] with vancomycin Will discuss with Dr. Monge 11/29/2023 Type 2 diabetes with nephropathy (ICD-10 - E11.21) Chronic kidney disease stage IIIb based on current labs available, CKD likely due to chronic obstruction, Hypertension, Diabetes and Age. Hypertension is controlled. Diabetes is controlled by report. Following with urology for ureteral stent exchanges and chronic UTI. Proteinuria is likely d/t UTI. 01/09/2024 Lymphoma, non-Hodgkin's (ICD-10 - C85.90) 1. Recurrent, complicated UTI's/Pyelonep hritis - 24; UW 816, UC a very sensitive Proteus, 9-6-24 UC Proteus, and Ec both VS - [...] dose of IV Rocephin, daughter is paying [id number] for the last 4 doses We will administer her last dose of Rocephin here in the office on January 23 and then DC PICC line Follow-up in 1 week 02/13/2024 Lymphoma, non-Hodgkin's (ICD-10 - C85.90) 1. [...] of mysentary lymphoma Labs 02-06-24 W 8.9, Non Destructive Evaluation Manager 1.73, CRP 2.12 CDiff Negative for Clostridium difficile toxin A and/or B , CDiff /Epi NAP1-BI PRESUMPTIVE NEGATIVE , 02-10-24 UM RBC U 6, WBC U 637, Fernanda 3+, Hyaline cast 4, SQ epi 6, UC >100,000 cfu/ml. Citrobacter farmeri FOLLOW UP:2 months [facility]el Cruz 04/08/2024 Essential hypertension (ICD-10 - I10) Chronic kidney [...] UTI Prophylaxis; - 04-14-24 Start Omnicef PO M,W, for UTI prophylaxis 4. C Difficile Prophylaxis; - 04-14-24 Vancomycin PO BID for cdiff prophylaxis -04-14-24 Deficid PO BID (started 04-04-24) will be completed on 04-16-24 5. Continued diarrhea, consult to see GI for colonoscopy. Has appt scheduled in May 2024 -consult to see Oncologist, hx of mysentary lymphoma Labs 02-06-24 W 8.9, Non Destructive Evaluation Manager 1.73, CRP 2.12 CDiff Negative for Clostridium [...] waiting to see a Neurologist. -Hospitalized in [place] 3. Recurrent complicated UTI's - stents in [...] of mysentary lymphoma Labs 02-06-24 W 8.9, Non Destructive Evaluation Manager 1.73, CRP 2.12 CDiff Negative for Clostridium difficile toxin A and/or B , CDiff /Epi NAP1-BI PRESUMPTIVE NEGATIVE , 24 UM RBC U 6, WBC U 637, Fernanda 3+, Hyaline cast 4, SQ epi 6, UC >100,000 cfu/ml. Citrobacter farmeri Follow up; 3 months [facility] 07/22/2024 Essential hypertension (ICD-10 - I10) 08/24/2024 [...] now non-nephrotic. Hyperuricemia is currently asymptomatic 08/24/2024 Pyelonephritis (ICD-10 - N12) 1. 68 yo white female with a history of chronic kidney disease, hyperlipidemia , hypertension, hypothyroidism , microcytic anemia, morbid obesity, type 2 diabetes with vascular disease, endometrial cancer, lymphoma and sleep apnea. 2.Hx of stroke 05-11-24 and waiting to see a Neurologist. -Hospitalized in [place] 3. Recurrent complicated UTI's - stents in place 11-03-23 - new stents were placed 03-28-2024 4. UTI Prophylaxis; - 08-24-24 continue Cefdinir 1 pill Mon, Wed, Sat (start date 05-28-24) Labs 02-10-24 UM RBC U 6, WBC U 637, Fernanda 3+, Hyaline cast 4, SQ epi 6, UC >100,000 cfu/ml. Citrobacter farmeri 08-16-24 UC Neg, UM WBC U 351, Non Destructive Evaluation Manager 1.79, Hgb 10.2, Ur Prot 72.10, Uric acid 8.0 Follow up; 3 months [facility] 08/24/2024 Lymphoma, non-Hodgkin's (ICD-10 - C85.90) 1. 68 yo white female with a history of chronic kidney disease, hyperlipidemia , hypertension, hypothyroidism , microcytic anemia, morbid obesity, type 2 diabetes with vascular disease, endometrial cancer, lymphoma and sleep apnea. 2.Hx of stroke 05-11-24 and waiting to see a Neurologist. -Hospitalized in [place] 3. Recurrent complicated UTI's - stents in place 11-03-23 - new stents were placed 03-28-2024 4. UTI Prophylaxis; - 08-24-24 continue Cefdinir 1 pill Sat, Wed, Sat (start date 05-28-24) Labs 02-10-24 UM RBC U 6, WBC U 637, Fernanda 3+, Hyaline cast 4, SQ epi 6, UC >100,000 cfu/ml. Citrobacter farmeri 08-16-24 UC Neg, UM WBC U 351, Non Destructive Evaluation Manager 1.79, Hgb 10.2, Ur Prot 72.10, Uric acid 8.0 Follow up; 3 months [facility] 08/24/2024 Hypokalemia (ICD-10 - E87.6) CKD is stable but baseline is difficult to discern. Hypertension is controlled at home and in clinic. Hypokalemia has resolved now with hyperkalemia, likely exacerbated by acidosis, which is new onset. Anemia is improved and now at goal with normal iron studies. Proteinuria has improved and is now non-nephrotic. Hyperuricemia is currently asymptomatic 07/22/2024 Type 2 diabetes mellitus without complication, [...] waiting to see a Neurologist. -Hospitalized in [place] 3. Recurrent complicated UTI's - stents in place 11-03-23 - new stents were placed 03-28-2024 -Treated for UTI in 2024 while in hospital -05-28-24 asymptomatic today 4. UTI Prophylaxis; - Rx for Cefdinir called into pharmacy for UTI prophylaxis Sig; 1 pill Sat, Wed, Sat (start date 05-28-24) -pt is to call clinic if unable to afford this 5. C Difficile Prophylaxis; - 05-28-24 pt could not afford Vanco or Deficid so didnt take any. -05-28-24 still having intermitten diarrhea 6. Continued intermitten diarrhea, GI appt; scheduled in August 03, 2024 -consult to see Oncologist, hx of mysentary lymphoma Labs 02-06-24 W 8.9, Non Destructive Evaluation Manager 1.73, CRP 2.12 CDiff Negative for Clostridium difficile toxin A and/or B , CDiff /Epi NAP1-BI PRESUMPTIVE NEGATIVE , 02-10-24 UM RBC U 6, WBC U 637, Fernanda 3+, Hyaline cast 4, SQ epi 6, UC >100,000 cfu/ml. Citrobacter farmeri [facility] Lymphoma, non-Hodgkin's (ICD-10 - C85.90) 1. [...] 2024 -consult [facility] see [facility]cologist[facility] Labs 02-06-24 W 8.9, Non Destructive Evaluation Manager 1.73, CRP 2.12 CDiff Negative for Clostridium difficile toxin A and/or B , CDiff /Epi NAP1-BI PRESUMPTIVE NEGATIVE , 02-10-24 UM RBC U 6, WBC U 637, Fernanda 3+, Hyaline cast 4, SQ epi 6, UC >100,000 cfu/ml. Citrobacter farmeri [facility] Type 2 diabetes with nephropathy [...] below goal with unknown iron status. 02/13/2024 Chronic kidney failure (ICD-10 - N18.9) [...] of mysentary lymphoma Labs 02-06-24 W 8.9, Non Destructive Evaluation Manager 1.73, CRP 2.12 CDiff Negative for Clostridium difficile toxin A and/or B , CDiff /Epi NAP1-BI PRESUMPTIVE NEGATIVE , 02-10-24 UM RBC U 6, WBC U 637, Fernanda 3+, Hyaline cast 4, SQ epi 6, UC >100,000 cfu/ml. Citrobacter farmeri FOLLOW UP:2 months [facility]el Cruz 01/09/2024 Chronic kidney failure (ICD-10 - N18.9) [...] dose of IV Rocephin, daughter is paying [id number] for the last 4 doses We will administer her last dose of Rocephin here in the office on January 23 and then DC PICC line Follow-up in 1 week 01/24/2024 Clostridium difficile infection (ICD-10 - A49.8) 1. Recurrent, complicated UTI's/Pyelonep hritis - 12-25-23; UW 816, UC a very sensitive Proteus, 11-29-23 UC Proteus, and Ec both VS - She is asymptomatic today - has stents in place 2. Antibiotics day #28 s/p stent exchange: Rocephin, Changed to p.o. Augmentin (last 5 days)- duration of therapy 4 weeks EOT --01-14-24; W 12.6, Non Destructive Evaluation Manager 1.46, Crp 5.68 01-24-24; W 7.7, Non Destructive Evaluation Manager 1.48, Crp 3.13 3. C. diff, PCR, [...] vancomycin Will discuss with Dr. Monge 01/14/2024 Clostridium difficile infection (ICD-10 - A49.8) 1. Recurrent, complicated UTI's/Pyelonep hritis - 12-25-23; UW 816, UC a very sensitive Proteus, 11-29-23 UC Proteus, and Ec both VS - She is asymptomatic today - has stents in place 2. Antibiotics day #18 s/p stent exchange: Rocephin- duration of therapy 4 weeks 01-14-24; W 12.6, Non Destructive Evaluation Manager 1.46, Crp 5.68 3. C. diff, PCR, [...] dose of IV Rocephin, daughter is paying [id number] for the last 4 doses We will administer her last dose of Rocephin here in the office on January 23 and then DC PICC line 4. Severe abdominal yeast candidiasis Begin Fluconazole 100 mg 1 dose every 3 days for 3 doses Continue to wound care/Interdry Check urine studies today Follow-up in 1 week 02/06/2024 Lymphoma, non-Hodgkin's (ICD-10 - C85.90) 1. Recurrent, complicated UTI's/Pyelonep hritis - 12-25-23; UW 816, UC a very sensitive Proteus, 11-29-23 UC Proteus, and Ec both VS - She is asymptomatic today - has stents in place 2. Antibiotics day #28 s/p stent exchange: Rocephin, Changed to p.o. Augmentin (last 5 days)- duration of therapy 4 weeks EOT --01-14-24; W 12.6, Non Destructive Evaluation Manager 1.46, Crp 5.68 01-24-24; W 7.7, Non Destructive Evaluation Manager 1.48, Crp 3.13 3. C. diff, PCR, [...] cultures Check labs today and follow-up on Saturday01/30/2024 Chronic kidney failure (ICD-10 - N18.9) 1. Recurrent, complicated UTI's/Pyelonep hritis - 12-25-23; UW 816, UC a very sensitive Proteus, 11-29-23 UC Proteus, and Ec both VS - She is asymptomatic today - has stents in place 2. Antibiotics day #28 s/p stent exchange: Rocephin, Changed to p.o. Augmentin (last 5 days)- duration of therapy 4 weeks EOT -01-14-24; W 12.6, Non Destructive Evaluation Manager 1.46, Crp 5.68 01-24-24; W 7.7, Non Destructive Evaluation Manager 1.48, Crp 3.13 3. C. diff, PCR, [...] with vancomycin Will discuss with Dr. Monge 02/10/2024 Lymphoma, non-Hodgkin's (ICD-10 - C85.90) 1. Recurrent, complicated UTI's/Pyelonep hritis - 12-25-23; UW 816, UC a very sensitive Proteus, 11-29-23 UC Proteus, and Ec both VS - She is asymptomatic today - has stents in place 2. Antibiotics day #28 s/p stent exchange: Rocephin, Changed to p.o. Augmentin (last 5 days)- duration of therapy 4 weeks Completed treatment 01-14-24; W 12.6, Non Destructive Evaluation Manager 1.46, Crp 5.68 01-24-24; W 7.7, Non Destructive Evaluation Manager 1.48, Crp 3.13 3. C. diff, PCR, and toxin positive admission 12-26-23; - This is her second recurrence of C. difficile 4. Continued loose stools 02-10-24; W 8.9, Non Destructive Evaluation Manager 1.73, Crp 2.12 Working on approval for FMT [place] She continues to have increased loose stools, begin Dificid, will await pending cultures DC Imodium 5. Dysuria - Give Invanz 1 gm IM today Will recheck urine studies and labs today, order CT scan abd/pelvis She will need continued UTI prophylaxis plan for Augmentin with vancomycin 02/10/2024 Chronic kidney failure (ICD-10 - N18.9) 1. Recurrent, complicated UTI's/Pyelonep hritis - 24; UW 816, UC a very sensitive Proteus, 11-29-23 UC Proteus, and Ec both VS - She is asymptomatic today - has stents in place 2. Antibiotics day #28 s/p stent exchange: Rocephin, Changed to p.o. Augmentin (last 5 days)- duration of therapy 4 weeks Completed treatment 01-14-24; W 12.6, Non Destructive Evaluation Manager 1.46, Crp 5.68 01-24-24; W 7.7, Non Destructive Evaluation Manager 1.48, Crp 3.13 3. C. diff, PCR, and toxin positive admission 12-26-23; - This is her second recurrence of C. difficile 4. Continued loose stools 02-10-24; W 8.9, Non Destructive Evaluation Manager 1.73, Crp 2.12 Working on approval for FMT [place] She continues to have increased loose stools, begin Dificid, will await pending cultures DC Imodium 5. Dysuria - Give Invanz 1 gm IM today Will recheck urine studies and labs today, order CT scan abd/pelvis She will need continued UTI prophylaxis plan for Augmentin with vancomycin 01/30/2024 Chronic kidney disease, stage 3b (ICD-10 - N18.32) 1. Recurrent, complicated UTI's/Pyelonep hritis - 24; UW 816, UC a very sensitive Proteus, 11-29-23 UC Proteus, and Ec both VS - She is asymptomatic today - has stents in place 2. Antibiotics day #28 s/p stent exchange: Rocephin, Changed to p.o. Augmentin (last 5 days)- duration of therapy 4 weeks EOT -01-14-24; W 12.6, Non Destructive Evaluation Manager 1.46, Crp 5.68 01-24-24; W 7.7, Non Destructive Evaluation Manager 1.48, Crp 3.13 3. C. diff, PCR, [...] vancomycin Will discuss with Dr. Monge 02/06/2024 Chronic kidney failure (ICD-10 - N18.9) 1. Recurrent, complicated UTI's/Pyelonep hritis - 12-25-23; UW 816, UC a very sensitive Proteus, 11-29-23 UC Proteus, and Ec both VS - She is asymptomatic today - has stents in place 2. Antibiotics day #28 s/p stent exchange: Rocephin, Changed to p.o. Augmentin (last 5 days)- duration of therapy 4 weeks EOT --01-14-24; W 12.6, Non Destructive Evaluation Manager 1.46, Crp 5.68 01-24-24; W 7.7, Non Destructive Evaluation Manager 1.48, Crp 3.13 3. C. diff, PCR, [...] cultures Check labs today and follow-up on Saturday01/14/2024 Pyelonephritis (ICD-10 - N12) 1. Recurrent, complicated UTI's/Pyelonep hritis - 12-25-23; UW 816, UC a very sensitive Proteus, 11-29-23 UC Proteus, and Ec both VS - She is asymptomatic today - has stents in place 2. Antibiotics day #18 s/p stent exchange: Rocephin- duration of therapy 4 weeks 01-14-24; W 12.6, Non Destructive Evaluation Manager 1.46, Crp 5.68 3. C. diff, PCR, [...] dose of IV Rocephin, daughter is paying [id number] for the last 4 doses We will administer her last dose of Rocephin here in the office on January 23 and then DC PICC line 4. Severe abdominal yeast candidiasis Begin Fluconazole 100 mg 1 dose every 3 days for 3 doses Continue to wound care/Interdry Check urine studies today Follow-up in 1 week 01/24/2024 Pyelonephritis (ICD-10 [...] therapy 4 weeks EOT --01-14-24; W 12.6, Non Destructive Evaluation Manager 1.46, Crp 5.68 01-24-24; W 7.7, Non Destructive Evaluation Manager 1.48, Crp 3.13 3. C. diff, PCR, [...] discuss with Dr. Monge 01/09/2024 Chronic kidney disease, stage 3b (ICD-10 [...] dose of IV Rocephin, daughter is paying [id number] for the last 4 doses We will administer her last dose of Rocephin here in the office on January 23 and then DC PICC line Follow-up in 1 week 02/13/2024 Chronic kidney disease, stage 3b (ICD-10 - [...] of mysentary lymphoma Labs 02-06-24 W 8.9, Non Destructive Evaluation Manager 1.73, CRP 2.12 CDiff Negative for Clostridium [...] of mysentary lymphoma Labs 02-06-24 W 8.9, Non Destructive Evaluation Manager 1.73, CRP 2.12 CDiff Negative for Clostridium [...] waiting to see a Neurologist. -Hospitalized in [place] 3. Recurrent complicated UTI's - stents in [...] of mysentary lymphoma Labs 02-06-24 W 8.9, Non Destructive Evaluation Manager 1.73, CRP 2.12 CDiff Negative for Clostridium difficile toxin A and/or B , CDiff /Epi NAP1-BI PRESUMPTIVE NEGATIVE , 02-10-24 UM RBC U 6, WBC U 637, Fernanda 3+, Hyaline cast 4, SQ epi 6, UC >100,000 cfu/ml. Citrobacter farmeri Follow up; 3 months [facility] 07/22/2024 Chronic kidney disease, stage 3b [...] now non-nephrotic. Hyperuricemia is currently asymptomatic 08/24/2024 Chronic kidney failure (ICD-10 - N18.9) 1. 68 yo white female with a history of chronic kidney disease, hyperlipidemia , hypertension, hypothyroidism , microcytic anemia, morbid obesity, type 2 diabetes with vascular disease, endometrial cancer, lymphoma and sleep apnea. 2.Hx of stroke 05-11-24 and waiting to see a Neurologist. -Hospitalized in [place] 3. Recurrent complicated UTI's - stents in place 11-03-23 - new stents were placed 03-28-2024 4. UTI Prophylaxis; - 08-24-24 continue Cefdinir 1 pill Mon, Wed, Fri (start date 05-28-24) Labs 02-10-24 UM RBC U 6, WBC U 637, Fernanda 3+, Hyaline cast 4, SQ epi 6, UC >100,000 cfu/ml. Citrobacter farmeri 08-16-24 UC Neg, UM WBC U 351, Non Destructive Evaluation Manager 1.79, Hgb 10.2, Ur Prot 72.10, Uric acid 8.0 Follow up; 3 months [facility] 08/24/2024 Chronic kidney disease, stage 3b (ICD-10 - N18.32) 1. 68 yo white female with a history of chronic kidney disease, hyperlipidemia , hypertension, hypothyroidism , microcytic anemia, morbid obesity, type 2 diabetes with vascular disease, endometrial cancer, lymphoma and sleep apnea. 2.Hx of stroke 05-11-24 and waiting to see a Neurologist. -Hospitalized in [place] 3. Recurrent complicated UTI's - stents in place 11-03-23 - new stents were placed 03-28-2024 4. UTI Prophylaxis; - 08-24-24 continue Cefdinir 1 pill Mon, Wed, Sat (start date 05-28-24) Labs 02-10-24 UM RBC U 6, WBC U 637, Fernanda 3+, Hyaline cast 4, SQ epi 6, UC >100,000 cfu/ml. Citrobacter farmeri 08-16-24 UC Neg, UM WBC U 351, Non Destructive Evaluation Manager 1.79, Hgb 10.2, Ur Prot 72.10, Uric acid 8.0 Follow up; 3 months [facility] 08/24/2024 Hyperchloremic metabolic acidosis (ICD-10 - E87.29) CKD is stable but baseline is difficult to discern. Hypertension is controlled at home and in clinic. Hypokalemia has resolved now with hyperkalemia, likely exacerbated by acidosis, which is new onset. Anemia is improved and now at goal with normal iron studies. Proteinuria has improved and is now non-nephrotic. Hyperuricemia is currently asymptomatic 07/22/2024 Anemia in chronic kidney disease (ICD-10 - D63.1) 05/26/2024 Chronic kidney disease, stage 3b (ICD-10 - N18.32) 1. 68 yo white female with a history of chronic kidney disease, hyperlipidemia , hypertension, hypothyroidism , microcytic anemia, morbid obesity, type 2 diabetes with vascular disease, endometrial cancer, lymphoma and sleep apnea. 2.Hx of stroke 05-11-24 and waiting to see a Neurologist. -Hospitalized in [place] 3. Recurrent complicated UTI's - stents in [...] 2024 -consult to see Oncologist, [facility] Labs 02-06-24 W 8.9, Non Destructive Evaluation Manager 1.73, CRP 2.12 CDiff Negative for Clostridium difficile toxin A and/or B , CDiff /Epi NAP1-BI PRESUMPTIVE NEGATIVE , 02-10-24 UM RBC U 6, WBC U 637, Fernanda 3+, Hyaline cast 4, SQ epi 6, UC >100,000 cfu/ml. Citrobacter farmeri Follow up; 3 months [facility] 04/14/2024 Chronic kidney disease, stage 3b (ICD-10 [...] UTI Prophylaxis; - 04-14-24 Start Omnicef PO M,W, for UTI prophylaxis 4. C Difficile Prophylaxis; - 04-14-24 Vancomycin PO BID for cdiff prophylaxis -04-14-24 Deficid PO BID (started 04-04-24) will be completed on 04-16-24 5. Continued diarrhea, consult to see GI for colonoscopy. Has appt scheduled in May 2024 -consult to see Oncologist, hx of mysentary lymphoma Labs 02-06-24 W 8.9, Non Destructive Evaluation Manager 1.73, CRP 2.12 CDiff Negative for Clostridium difficile toxin A and/or B , CDiff /Epi NAP1-BI PRESUMPTIVE NEGATIVE , 02-10-24 UM RBC U 6, WBC U 637, Fernanda 3+, Hyaline cast 4, SQ epi 6, UC >100,000 cfu/ml. Citrobacter farmeri Follow up; 6 weeks [facility] Gloria[facility] 04/08/2024 Hypocalcemia (ICD-10 - E83.51) Chronic [...] is below goal with unknown iron status. 01/24/2024 Lymphoma, non-Hodgkin's (ICD-10 - C85.90) 1. Recurrent, complicated UTI's/Pyelonep hritis - 12-25-23; UW 816, UC a very sensitive Proteus, 11-29-23 UC Proteus, and Ec both VS - She is asymptomatic today - has stents in place 2. Antibiotics day #28 s/p stent exchange: Rocephin, Changed to p.o. Augmentin (last 5 days)- duration of therapy 4 weeks EOT --24 01-14-24; W 12.6, Non Destructive Evaluation Manager 1.46, Crp 5.68 01-24-24; W 7.7, Non Destructive Evaluation Manager 1.48, Crp 3.13 3. C. diff, PCR, [...] exchange: Rocephin- duration of therapy 4 weeks 24; W 12.6, Non Destructive Evaluation Manager 1.46, Crp 5.68 3. C. diff, PCR, [...] Saturday the to coordinate appointments with Dr. Lornezo for her pulmonary nodule evaluation She will return again on January 23 to coordinate for her last dose of IV Rocephin, daughter is paying [id number] for the last 4 doses We will administer her last dose of Rocephin here in the office on January 23 and then DC PICC line 4. Severe abdominal yeast candidiasis Begin Fluconazole 100 mg 1 dose every 3 days for 3 doses Continue to wound care/Interdry Check urine studies today Follow-up in 1 week 02/06/2024 Chronic kidney disease, stage 3b (ICD-10 [...] therapy 4 weeks EOT 01-14-24; W 12.6, Non Destructive Evaluation Manager 1.46, Crp 5.68 01-24-24; W 7.7, Non Destructive Evaluation Manager 1.48, Crp 3.13 3. C. diff, PCR, [...] 4 weeks Completed treatment 01-14-24; W 12.6, Non Destructive Evaluation Manager 1.46, Crp 5.68 01-24-24; W 7.7, Non Destructive Evaluation Manager 1.48, Crp 3.13 3. C. diff, PCR, and toxin positive admission 12-26-23; - This is her second recurrence of C. difficile 4. Continued loose stools 02-10-24; W 8.9, Non Destructive Evaluation Manager 1.73, Crp 2.12 Working on approval for FMT Sada She continues to have increased loose stools, begin Dificid, will await pending cultures DC Imodium 5. Dysuria - Give Invanz 1 gm IM today Will recheck urine studies and labs today, order CT scan abd/pelvis She will need continued UTI prophylaxis plan for Augmentin with vancomycin 01/14/2024 Chronic kidney failure (ICD-10 - N18.9) 1. Recurrent, complicated UTI's/Pyelonep hritis - 12-25-23; UW 816, UC a very sensitive Proteus, 11-29-23 UC Proteus, and Ec both VS - She is asymptomatic today - has stents in place 2. Antibiotics day #18 s/p stent exchange: Rocephin- duration of therapy 4 weeks 01-13-24; W 12.6, Non Destructive Evaluation Manager 1.46, Crp 5.68 3. C. diff, PCR, [...] dose of IV Rocephin, daughter is paying [id number] for the last 4 doses We will [...] therapy 4 weeks EOT 01-14-24; W 12.6, Non Destructive Evaluation Manager 1.46, Crp 5.68 01-24-24; W 7.7, Non Destructive Evaluation Manager 1.48, Crp 3.13 3. C. diff, PCR, [...] with vancomycin Will discuss with Dr. Monge 04/08/2024 Anemia in chronic kidney disease (ICD-10 [...] is below goal with unknown iron status. 07/22/2024 History of lymphoma (ICD-10 - Z85.72) 08/24/2024 Anemia in chronic kidney disease (ICD-10 - D63.1) CKD is stable but baseline is difficult to discern. Hypertension is controlled at home and in clinic. Hypokalemia has resolved now with hyperkalemia, likely exacerbated by acidosis, which is new onset. Anemia is improved and now at goal with normal iron studies. Proteinuria has improved and is now non-nephrotic. Hyperuricemia is currently asymptomatic 08/24/2024 Nephrotic range proteinuria (ICD-10 - R80.9) CKD is stable but baseline is difficult to discern. Hypertension is controlled at home and in clinic. Hypokalemia has resolved now with hyperkalemia, likely exacerbated by acidosis, which is new onset. Anemia is improved and now at goal with normal iron studies. Proteinuria has improved and is now non-nephrotic. Hyperuricemia is currently asymptomatic 07/22/2024 History of endometrial cancer (ICD-10 - Z85.42) 01/24/2024 Chronic kidney disease, stage 3b (ICD-10 [...] therapy 4 weeks EOT 01-14-24; W 12.6, Non Destructive Evaluation Manager 1.46, Crp 5.68 01-24-24; W 7.7, Non Destructive Evaluation Manager 1.48, Crp 3.13 3. C. diff, PCR, [...] of therapy 4 weeks 01-14-24; W 12.6, Non Destructive Evaluation Manager 1.46, Crp 5.68 3. C. diff, PCR, [...] dose of IV Rocephin, daughter is paying [id number] for the last 4 doses We will administer her last dose of Rocephin here in the office on January 23 and then DC PICC line 4. Severe abdominal yeast candidiasis Begin Fluconazole 100 mg 1 dose every 3 days for 3 doses Continue to wound care/Interdry Check urine studies today Follow-up in 1 week 07/22/2024 Nicotine dependence, cigarettes, in remission (ICD-10 - F17.211) 08/24/2024 Hyperuricemia (ICD-10 - E79.0) CKD is stable but baseline is difficult to discern. Hypertension is controlled at home and in clinic. Hypokalemia has resolved now with hyperkalemia, likely exacerbated by acidosis, which is new onset. Anemia is improved and now at goal with normal iron studies. Proteinuria has improved and is now non-nephrotic. Hyperuricemia is currently asymptomatic 07/22/2024 MATT (obstructive sleep apnea) (ICD-10 - [...] Martin in 4 months with labs at [place] 5 to 10 days prior to appointment Chronic kidney disease stage IIIb based on current labs available, CKD likely due to chronic obstruction, Hypertension, Diabetes and Age. Hypertension is controlled. Diabetes is controlled by report. Following with urology for ureteral stent exchanges and chronic UTI. Proteinuria is likely d/t UTI. 12/10/2023 Other Rin Latif, am scribing for, and in the presence [...] dose of IV Rocephin, daughter is paying [id number] for the last 4 doses We will administer her last dose of Rocephin here in the office on January 23 and then DC PICC line Follow-up in 1 week 01/14/2024 Other I, Rin Greene, am scribing for, and in the presence of Dr. Corky Lorenzo. I, Dr. Corky Lorenzo, personally performed the services described in this documentation , as scribed by Rin Greene in my presence, and it is both accurate and complete. 01/24/2024 Other Hospital records reviewed, medication list [...] days)- duration of therapy 4 weeks EOT 11--24 24; W 12.6, Non Destructive Evaluation Manager 1.46, Crp 5.68 01-24-24; W 7.7, Non Destructive Evaluation Manager 1.48, Crp 3.13 3. C. diff, PCR, and toxin positive admission 12-26-23; - This is her second recurrence of C. difficile, on her third reoccurrence she will qualify for FMT Sada PICC line has been discontinued her last day of p.o. Augmentin is today Complete additional 7 days of vancomycin Will recheck surveillance urine studies next week she will need continued prophylaxis plan for Augmentin with vancomycin Will discuss with Dr. Monge 02/06/2024 Other Begin process f or approval fecal transplant with Sada 1. Recurrent, complicated UTI's/Pyelonep hritis - 12-25-23; UW 816, UC a very sensitive Proteus, 11-29-23 UC Proteus, and Ec both VS - She is asymptomatic today - has stents in place 2. Antibiotics day #28 s/p stent exchange: Rocephin, Changed to p.o. Augmentin (last 5 days)- duration of therapy 4 weeks EOT 11--24 01-13-24; W 12.6, Non Destructive Evaluation Manager 1.46, Crp 5.68 01-24-24; W 7.7, Non Destructive Evaluation Manager 1.48, Crp 3.13 3. C. diff, PCR, [...] Check labs today and follow-up on Saturday04/08/2024 Other Repeat BMP tomorrow at Dr Louis's [...] Follow-up in 4-5 months with labs at [facility] 5 to 10 days prior to appointment [...] labs. In one week repeat BMP at [facility]. Follow-up in 3-4 months with labs at [facility] 5 to 10 days prior to appointment [...] is now non-nephrotic. Hyperuricemia is currently asymptomatic Plan Of Treatment Pending Test Test Name Order Date Culture Urine [id number] 11/29/2023 Basic Metabolic Panel (BMP) 22915 2024 Basic Metabolic Panel (BMP) 72013 2022 CBC w\ Auto Diff 80257 05/21/2022 Ferritin 94887 04/08/2024 Hematocrit 82856 04/08/2024 Hemoglobin 96834 04/08/2024 Phosphorus (B) 82821 04/08/2024 Vitamin D Total (B) 15942 04/08/2024 PTH Intact 05933 04/08/2024 CDiff PCR Rfx C diff Toxin NAP/EPI 39849 , 59804 02/10/2024 Miscellaneous Test 02/10/2024 CT Abdomen, Pelvis w/ + w/o Contrast-741 78 02/10/2024 Electrocardiogram 12 Lead Tracing-94838 05/21/2022 % Iron Saturation (Fe & TIBC)--71674,835 50 04/08/2024 Culture Urine Reflex--55324 05/21/2022 Future Test Test Name Order Date Albumin 51129 03/27/2024 Basic Metabolic Panel (BMP) 56044 2024 Hemoglobin 50162 03/27/2024 Magnesium (B) 61924 03/27/2024 Phosphorus (B) 71264 03/27/2024 Protein (U) Random 83624 03/27/2024 Uric Acid (B) 57235 03/27/2024 Vitamin D Total (B) 78676 03/27/2024 Creatinine (U) 27987 03/27/2024 UA Reflex Micro, Reflex Cult 16772, 8101 5, 38082 03/27/2024 PTH Intact 05686 03/27/2024 Albumin 95073 12/09/2024 Basic Metabolic Panel (BMP) 64679 2024 Ferritin 08305 12/09/2024 Hematocrit 24425 12/09/2024 Hemoglobin 73009 12/09/2024 Iron Binding Capacity Total 80008 2024 Iron Level 74853 12/09/2024 Phosphorus (B) 17563 12/09/2024 Protein (U) Random 70689 12/09/2024 Uric Acid (B) 43085 12/09/2024 Creatinine (U) 40707 12/09/2024 UA Reflex Micro, Reflex Cult 58790, 8101 5, 80644 12/09/2024 PTH Intact 83426 12/09/2024 % Iron Saturation (Fe & TIBC)--81353,835 50 12/09/2024 Next Appt Details Provider Name:Abelardo del rosario, 11/24/2024 12:30:00 PM, [address] [place] [address] [place], [address], Provider Name:Mansi monroe, 12/23/2024 01:00:00 PM, [address] [place] [address] [facility] [address], [address], Insurance Providers Payer Name Payer Address Payer Phone Subscriber Number Group Number Insured Name Patient Relationship to Insured Coverage Start Date Coverage End Date [employer] Medicare Replacement [address] [address] [place] [address] [id number] ALCIRA BECKMAN Self - patient is [...] high uric acid Surgical History Surgery Date(Month/Year) hysterectomy, total with bilateral salpi hung-oophorectomy (BSO) cholecystectomy bladder bx 06/05/22 cyst removal Stents in kidney 2023 angioplasty 2023 cyst removal in hand Angiogram/[facility] Stents replaced/ Hospitalization History Reason Date(Month/Year) ED- Right side pain/UTI... CT/Labs/Cu lture done 11/29/2023 Stroke/[facility] rectal bleeding 01/15 stroke 03/2023 [facility] UTI inspired sepsi s 02/2022 see sx hx
--- OUTSIDE RECORDS SUMMARY | 2024-11-04 07:42 | XMS_ITS | Encounter Summary ---
Author Organization [employer] [facility] Address [address] [place] [address] Care Team Providers Care Admissions Consultant Name Role Phone Unavailable Primary Care Provider Unavailabl e Encounter Details Date Type Department Care Team (Latest Contact Info) Description 07/01/2000 Outpatient Historical [facility] Chasegrace Scooby H NO ADDRESS ON FILE Type II or unspecified type diabetes mellitus without mention of complication, not stated as uncontrolled (Primary Dx); Unspecified hypothyroidism Social History Tobacco Use Types Packs/Day Years Used Date Smoking Tobacco: Never Assessed Comments Unknown Sex and Gender Information Value Date Recorded Sex Assigned at Not on file 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
--- OUTSIDE RECORDS SUMMARY | 2024-11-04 07:42 | XMS_ITS | Encounter Summary ---
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
--- OUTSIDE RECORDS SUMMARY | 2024-11-04 07:42 | XMS_ITS | Encounter Summary ---
Author Organization [employer] [facility] Address [address] [place] [address] Care Team Providers Care Button Breaker Operator Name Role Phone Unavailable Primary Care Provider Unavailabl e Encounter Details Date Type Department Care Team (Latest Contact Info) Description 07/12/1999 Outpatient Historical [facility] Giselle Scooby H NO ADDRESS ON FILE Other specified menopausal and postmenopausal disorder (Primary Dx); Acute pharyngitis; Family history of diabetes mellitus; Personal history of malignant neoplasm of thyroid Social History Tobacco Use Types Packs/Day Years Used Date Smoking Tobacco: Never Assessed Comments Unknown Sex and Gender Information Value Date Recorded Sex Assigned at Not on file 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
--- OUTSIDE RECORDS SUMMARY | 2024-11-04 07:42 | XMS_ITS | Encounter Summary ---
Author Organization [facility] Address [address] [place] [address] Care Team Providers Care Risk Control Consultant Name Role Phone Jimmy Caballero DO Primary Care Provider [phone] Reason for Referral * Radiology Services (Routine) - Closed Specialty Diagnoses / Procedures Referred By Preeti mckeon Referred To Contact Diagnoses Hydronephrosis, unspecified hydronephrosis type Procedures IR TUBE PLACEMENT Omid Carroll MD [address] [place] [address] Phone: tel: fax: [facility] Pre-Registration [place] CALL TO MAKE APPOINTMENT ONLY [address] [place] [address] Phone: tel: fax: Referral ID Status Reason Start Date Expiration Date Visits Re quested Visits Authorized [id number] Closed 10/26/2024 11/26/2025 1 1 Reason for Visit * Reason Onset Date Comments Pain 10/26/2024 Encounter Details Date Type Department Care Team (Late st Contact Info) Description 10/26/2024 Telephone [facility] [place] [address] [facility] [address] [place] [address] Omid Carroll MD [address] [place] [address] Pain Social History Tobacco Use Types Packs/Day Years Used Date Smoking Tobacco: Former Cigarettes Q uit: 1980 Alcohol Use Standard Drinks/Week Comments Never 0 (1 standard drink = 0.6 oz pur e alcohol) Comments No Sex and Gender Information Value Date Recorded Sex Assigned at Not on file 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 0630 arrival. * Addendum Note - Angela Mckeon LPN - 10/26/2024 1:17 PM CDTAddended by: ANGELA MCKEON on: 10/26/2024 01:17 PM Modules accepted: Orders * Telephone Encounter - Angela Mckeon LPN - 10/26/2024 1:05 PM CDT Spoke with patients daughter Nery, she stated that the pain is manageable now, advised that Dr. Carroll said she might need a nephrostomy, she would like to proceed with this. Order placed, per . Advised the need to go to the ER if pain persists or increases. * Telephone Encounter - Arina Kim - 10/26/2024 8:46 AM CDT Daughter is calling in stating that pt is having the severe right flank pain she is taking norco and when the norco wears off it is 8-10, she feels like the stent is blocked again. She said Dr Carroll said if this happens again she may have to have nephrectomy. She does not feel like she can go sit in ER with the pain. She just had stent replaced on 10/19/24. Daughter was told if patient zelalemsshe will need to go to ER. I will forward to for review with DR Carroll. documented in this encounter Plan of Treatment Upcoming Encounters Date Type Department Care Team (Late st Contact Info) Description 11/06/2024 12:00 PM CDT Appointment [facility] [address] [place] [phone] 11/06/2024 1:00 PM CDT Office Visit [facility] [place] [address] [place] [phone] Cruz Mckinney MD [address] [place] [address] 12/18/2024 3:30 PM CDT Office Visit [facility] Family Medicine- [address] [place] [address] Seema Damon NP [address] [place] [address], [place] [address] documented as of this encounter Results * IR TUBE PLACEMENT (10/29/2024 8:13 AM CDT) Anatomical Region Laterality Modality X-Ray Angiograph y 10/29/2024 8:14 AM CDT Impressions 10/29/2024 1:13 PM CDT IMPRESSION: Please see below. Exam: Ultrasound and fluoroscopic-guided right percutaneous nephrostomy tube placement 1. Ultrasound guided micropuncture access of a posterior superior right renal calyx 2. Antegrade pyelogram 3. Placement of a right 8 Icelandic nephrostomy tube Date/Time of Exam: 10/29/2024 8:13 [...] documented in the medical record on the [facility]-approved form, 'Sedative/Analgesic Administration for Diagnostic and Therapeutic Procedures'. Please see nursing flow sheets for dosage and time. Sedation was administered by a trained independent observer. I personally supervised 30 minutes of sedation. Contrast: 5 ml Isovue-300 Fluoroscopy time: 0.8 minutes Estimated Blood Loss: Minimal Complications:None Implantable Devices: 8 Icelandic nephrostomy tube Procedure: After informed consent was [...] transitional dilator was exchanged for an 8 Icelandic nephrostomy tube. The cope loop was formed [...] hydronephrosis. 3. Placement of a right 8 Icelandic nephrostomy tube with the cope loop formed in the renal pelvis. IMPRESSION: Successful ultrasound and fluoroscopic-guided placement of a right 8 Icelandic nephrostomy tube as above. Narrative Procedure Note Al Kapadia MD - 10/29/2024 IMPRESSION: Please see below. Exam: Ultrasound and fluoroscopic-guided right percutaneous nephrostomy tube placement 1. Ultrasound guided micropuncture access of a posterior superior right renal calyx 2. Antegrade pyelogram 3. Placement of a right 8 Icelandic nephrostomy tube Date/Time of Exam: 10/29/2024 8:13 [...] documented in the medical record on the [facility]-approved form, 'Sedative/Analgesic Administration for Diagnostic and Therapeutic Procedures'. Please see nursing flow sheets for dosage and time. Sedation was administered by a trained independent observer. I personally supervised 30 minutes of sedation. Contrast: 5 ml Isovue-300 Fluoroscopy time: 0.8 minutes Estimated Blood Loss: Minimal Complications:None Implantable Devices: 8 Icelandic nephrostomy tube Procedure: After informed consent was [...] transitional dilator was exchanged for an 8 Icelandic nephrostomy tube. The cope loop was formed [...] hydronephrosis. 3. Placement of a right 8 Icelandic nephrostomy tube with the cope loop formed in the renal pelvis. IMPRESSION: Successful ultrasound and fluoroscopic-guided placement of a right 8 Icelandic nephrostomy tube as above. us Omid Carroll MD IR ORDERABLES Final Result documented in this encounter Visit Diagnoses Diagnosis Hydronephrosis, unspecified hydronephrosis type- Primary Hydronephrosis, unspecified hydronephrosis type History of non-Hodgkin's lymphoma- Primary Personal history of other lymphatic and hematopoietic neoplasm documented in this encounter Additional Health Concerns Assessment Noted Time PHQ-9 Depression Total Score: 1 10/01/19 25 8:59 AM CDT documented as of this encounter Care Teams Risk Control Consultant Relationship Specialty Start Date End Date Jimmy Caballero DO [address] [place] [phone] PCP - General Family Practice 09/30/24 documented as of this encounter
--- OUTSIDE RECORDS SUMMARY | 2024-11-04 07:42 | XMS_ITS | Clinical Summary ---
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
--- OUTSIDE RECORDS SUMMARY | 2024-11-04 07:42 | XMS_ITS | Encounter Summary ---
Author Organization [employer] Address [address] [place] [address] Care Team Providers Care Pss Delivery Professional Name Role Phone Jimmy Caballero Primary Care Provider [phone] Reason for Visit * Reason Onset Date Comments Procedure 10/28/2024 Encounter Details Date Type Department Care Team (Late st Contact Info) Description 10/28/2024 Telephone [facility] [place] [address] 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 Check in at the [facility] entrance at 630. Instructed they need to have a shuttle driver and someone to stay with them for the next 24 hours. We only allow 1 person to come to the prep and recovery area. Plan on being with us for 3-4 hours. Ptdenies taking blood thinners. Nothing to eat or drink after midnight. Informed it's ok take your mor ramirez medications with a small sip of water. documented in this encounter Plan of Treatment Upcoming Encounters Date Type Department Care Team (Late st Contact Info) Description 11/06/2024 12:00 PM CDT Appointment [facility] Laboratory Services [address] [place] [phone] 11/06/2024 1:00 PM CDT Office Visit [facility] Cancer [facility] Hematology [place] [address] [place] [address] Cruz Mckinney MD [address] [place] [address] 12/18/2024 3:30 PM CDT Office Visit [facility] Family Medicine[address] [place] [address] Seema Damon ANIMAL MAINTENANCE SUPERVISOR [address] [place] [address], [place] [address] documented as of this encounter Visit Diagnoses Not on filedocumented in this encounter Additional Health Concerns Assessment Noted Time PHQ-9 Depression Total Score: 1 10/01/19 25 8:59 AM CDT documented as of this encounter Care Teams Pss Delivery Professional Relationship Specialty Start Date End Date Jimmy Caballero DO [address] [place] [phone] PCP - General Family Practice 09/30/24 documented as of this encounter
--- OUTSIDE RECORDS SUMMARY | 2024-11-04 07:42 | XMS_ITS | Encounter Summary ---
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
--- OUTSIDE RECORDS SUMMARY | 2024-11-04 07:42 | XMS_ITS | Encounter Summary ---
Author Organization [facility] Address [address] [place] [address] Care Team Providers Care Mobile Paint Specialist Name Role Phone Jimmy Caballero Primary Care Provider [phone] Encounter Details Date Type Department Care Team ([facility] Contact Info) Description 10/28/2024 Orders Only [facility] Urology [address] [address] Omid Carroll MD [address] [place] [address] Flank pain (Primary Dx) Social History Tobacco Use Types Packs/Day Years Used Date Smoking Tobacco: Former Cigarettes Q uit: 1980 Alcohol Use Standard Drinks/Week Comments Never 0 (1 standard drink = 0.6 oz pur e alcohol) Comments No Sex and Gender Information Value Date Recorded Sex Assigned at Not on file 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 To have nephrostomy tomorrow. Lortab escribed. documented in this encounter Plan of Treatment Upcoming Encounters Date Type Department Care Team ([facility] Contact Info) Description 11/06/2024 12:00 PM CDT Appointment [facility] Laboratory Services [address] [facility] [address] [place] [address] 11/06/2024 1:00 PM CDT Office Visit [facility] Cancer and Hematology [place] [address] [facility] [address] [place] [address] Cruz Mckinney MD [address] [address] 12/18/2024 3:30 PM CDT Office Visit [facility] Medicine- [address] [place] [address] Seema Damon, CLINICAL ATHLETIC INSTRUCTOR [address] [place] [address], [place] [address] documented as of this encounter Visit Diagnoses Diagnosis Flank pain- Primary Abdominal pain, unspecified site History of non-Hodgkin's lymphoma- Primary Personal history of other lymphatic and hematopoietic neoplasm documented in this encounter Additional Health Concerns Assessment Noted Time PHQ-9 Depression Total Score: 1 10/01/19 25 8:59 AM CDT documented as of this encounter Care Teams Mobile Paint Specialist Relationship Specialty Start Date End Date Jimmy Caballero DO [address] [place] [address], [place] [address] PCP - General Family Practice 09/30/24 documented as of this encounter
--- OUTSIDE RECORDS SUMMARY | 2024-11-04 07:42 | XMS_ITS | Encounter Summary ---
Author Organization [employer] [facility] Address [address] [place] [address] Care Team Providers Care Actuarial Trainee Name Role Phone Unavailable Primary Care Provider Unavailabl e Encounter Details Date Type Department Care Team (Latest Contact Info) Description 08/26/2000 Outpatient Historical [facility] Scooby Desai NO ADDRESS ON FILE Unspecified disorder of skin and subcutaneous tissue (Primary Dx) Social History Tobacco Use Types Packs/Day Years Used Date Smoking Tobacco: Never Assessed Comments Unknown Sex and Gender Information Value Date Recorded Sex Assigned at Not on file 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
--- OUTSIDE RECORDS SUMMARY | 2024-11-04 07:42 | XMS_ITS | Encounter Summary ---
Author Organization [employer] [facility] Address [address] [place] [address] Care Team Providers Care Senior Electrical Design Engineer Name Role Phone Unavailable Primary Care Provider Unavailabl e Encounter Details Date Type Department Care Team (Latest Contact Info) Description 06/28/2000 Outpatient Historical [facility] Hanin[place] Scooby H NO ADDRESS ON FILE Type [...] on file Legal Sex Female 4:00 AM ADJUNCT TRAINER Gender Identity Not on file Sexual Orientation [...]
--- OUTSIDE RECORDS SUMMARY | 2024-11-04 07:42 | XMS_ITS | Encounter Summary ---
Author Organization [employer] [facility] Address [address] [place] [address] Care Team Providers Care Sustainability Officer Name Role Phone Unavailable Primary Care Provider Unavailabl e Encounter Details Date Type Department Care Team (Latest Contact Info) Description 10/02/2000 Outpatient Historical [facility] Scooby H NO ADDRESS ON FILE Type II or unspecified type diabetes mellitus without mention of complication, not stated as uncontrolled (Primary Dx) Social History Tobacco Use Types Packs/Day Years Used Date Smoking Tobacco: Never Assessed Comments Unknown Sex and Gender Information Value Date Recorded Sex Assigned at Not on file 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
--- OUTSIDE RECORDS SUMMARY | 2024-11-04 07:42 | XMS_ITS | Encounter Summary ---
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
--- OUTSIDE RECORDS SUMMARY | 2024-11-04 07:42 | XMS_ITS | Encounter Summary ---
Author Organization [employer] [facility] Address [address] [place] [address] Care Team Providers Care Mystery Shopper Name Role Phone Unavailable Primary Care Provider Unavailabl e Encounter Details Date Type Department Care Team (Latest Contact Info) Description 07/21/1999 Outpatient Historical [facility] Scooby Desai NO ADDRESS ON FILE Other abnormal clinical finding (Primary Dx) Social History Tobacco Use Types Packs/Day Years Used Date Smoking Tobacco: Never Assessed Comments Unknown Sex and Gender Information Value Date Recorded Sex Assigned at Not on file 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
--- OUTSIDE RECORDS SUMMARY | 2024-11-04 07:42 | XMS_ITS | Encounter Summary ---
Author Organization [employer] [facility] Address [address] [place] [address] Care Team Providers Care Drapery Hemmer Automatic Name Role Phone Unavailable Primary Care Provider Unavailabl e Encounter Details Date Type Department Care Team (Latest Contact Info) Description 10/22/2000 Outpatient Historical [facility] Scooby H NO ADDRESS [...] file Legal Sex Female 4:00 AM DIRECTOR OF EDUCATION AND TRAINING Gender Identity Not on file Sexual Orientation Not on file documented as of this encounter Plan of Treatment Not on file documented as of this encounter Visit Diagnoses Diagnosis Gynecologic examination- Primary Gynecological examination Screening for malignant neoplasm of the cervix Need for prophylactic hormone replacement therapy (postmenopausal) Screening for nephropathy documented in this encounter
--- OUTSIDE RECORDS SUMMARY | 2024-11-04 07:42 | XMS_ITS | Encounter Summary ---
Author Organization [employer] [facility] Address [address] [place] [address] Care Team Providers Care Ranch Helper Name Role Phone Unavailable Primary Care Provider Unavailabl e Encounter Details Date Type Department Care Team (Latest Contact Info) Description 01/12/2000 Outpatient Historical [facility] edwards Akin NO ADDRESS ON FILE Type II or unspecified type diabetes mellitus without mention of complication, not stated as uncontrolled (Primary Dx); Lumbago Social History Tobacco Use Types Packs/Day Years Used Date Smoking Tobacco: Never Assessed Comments Unknown Sex and Gender Information Value Date Recorded Sex Assigned at Not on file Legal Sex Female 4:00 AM 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
--- OUTSIDE RECORDS SUMMARY | 2024-11-04 07:42 | XMS_ITS | Encounter Summary ---
Author Organization [employer] [facility] Address [address] [place] [address] Care Team Providers Care Child Protective Services Social Worker Name Role Phone Unavailable Primary Care Provider Unavailabl e Encounter Details Date Type Department Care Team (Latest Contact Info) Description 01/21/2001 Outpatient Historical [facility] Chaitanya Hernandez Jr., MD [address] [place] [address] VACCINE FOR INFLUENZA (Primary Dx) Social History Tobacco Use Types Packs/Day Years Used Date Smoking Tobacco: Never Assessed Comments Unknown Sex and Gender Information Value Date Recorded Sex Assigned at Not on file 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
--- OUTSIDE RECORDS SUMMARY | 2024-11-04 07:42 | XMS_ITS | Encounter Summary ---
Author Organization [employer] [facility] Address [address] [place] [address] Care Team Providers Care Strategic Intelligence Officer Name Role Phone Unavailable Primary Care Provider Unavailabl e Encounter Details Date Type Department Care Team (Latest Contact Info) Description 07/31/1999 Outpatient Historical [facility] Scooby H NO ADDRESS ON [...] on file Legal Sex Female 4:00 AM SORTER PACKER Gender Identity Not on file Sexual Orientation [...]
--- OUTSIDE RECORDS SUMMARY | 2024-11-04 07:42 | XMS_ITS | Encounter Summary ---
Author Organization [employer] [facility] Address [address] [place] [address] Care Team Providers Care Price Accuracy Supervisor Name Role Phone Unavailable Primary Care Provider Unavailabl e Encounter Details Date Type Department Care Team (Latest Contact Info) Description 08/25/1999 Outpatient Historical [facility] Scooby Akin NO ADDRESS ON FILE Type II or unspecified type diabetes mellitus without mention of complication, not stated as uncontrolled (Primary Dx) Social History Tobacco Use Types Packs/Day Years Used Date Smoking Tobacco: Never Assessed Comments Unknown Sex and Gender Information Value Date Recorded Sex Assigned at Not on file 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
--- OUTSIDE RECORDS SUMMARY | 2024-11-04 07:42 | XMS_ITS | Encounter Summary ---
Author Organization [facility] Address [address] [place] [address] Care Team Providers Care Vice Provost Name Role Phone Jimmy Caballero Primary Care Provider [phone] Reason for Visit * Reason Comments Patient Communication Encounter Details Date Type Department Care Team ([facility] st Contact Info) Description 10/02/2024 Results Follow-Up [facility]- [address] [place] [address] Seema Damon, [employer] [address] [place] [address], [place] [phone] TSH, BASIC METABOLIC PANEL, CBC WITH DIFFERENTIAL Social History Tobacco Use Types Packs/Day Years Used Date Smoking Tobacco: Former Cigarettes Q uit: 1985 Alcohol Use Standard Drinks/Week Comments Not Asked 0 (1 standard drink = 0.6 oz pur e alcohol) Comments Unknown Sex and Gender Information Value Date Recorded Sex Assigned at Not on file 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 Topic: CPA Information Request >> Oct 02, 2024 4:57 PM Floresita Gan wrote: Caller is returning phone call from clinic. Caller Name: Macey Indira Gonsalo Patient/Caregiver Callback Number: Telephone Information: Clinic Left Note In Chart Is there a note from the clinic requesting the caller be transferred when they call back? No Are the credentials of the caregiver who called the patient manager diversity? Yes Call Notes: Communicated information that is documented in the note. Caller does not want a call back from clinic. * Telephone Encounter - Pamela Cárdenas RN - 10/02/2024 4:50 PM CDT 10/02/2024 4:50 PM No answer. Left voice mail/message that patient/caregiver can return our call. If patient/caregivercalls back, contact center may tell caller Hgb has improved a little, is now at 9.4. Platelets are better than they have been for a while. Glucose was 156. Kidney function has improved slightly. TSH was normal. Pamela SANTIZO * Telephone Encounter - Pamela Cárdenas RN - 10/02/2024 4:49 PM CDT ----- Message from Seema Damon sent at 10/02/2024 4:43 PM CDT ----- Hgb has improved a little, is now at 9.4. Platelets are better than they have been for a while. Glucose was 156. Kidney function has improved slightly. TSH was normal. Please do call this family, they are new to [facility]. Daughter is a nurse and she is very sharp and nice. documented in this encounter Plan of Treatment Upcoming Encounters Date Type Department Care Team (Late st Contact Info) Description 11/06/2024 12:00 PM CDT Appointment [facility] [address] [place] [address] 11/06/2024 1:00 PM CDT Office Visit [facility] [place] [address] [place] [address] Cruz Mckinney MD [address] [place] [phone] 12/18/2024 3:30 PM CDT Office Visit [facility]- [address] [place] [address] Seema Damon NP [address] [place] [address], [place] [address] documented as of this encounter Visit Diagnoses Not on filedocumented in this encounter Additional Health Concerns Assessment Noted Time PHQ-9 Depression Total Score: 1 10/01/19 25 8:59 AM CDT documented as of this encounter Care Teams Vice Provost Relationship Specialty Start Date End Date Jimmy Caballero DO [address] [place] [phone] PCP - General Family Practice 09/30/24 documented as of this encounter
--- OUTSIDE RECORDS SUMMARY | 2024-11-04 07:42 | XMS_ITS | Clinical Summary ---
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 Active metoprolol succinate (TOPROL XL) 50 mg Extended Release 24 hour tablet Take 50 mg by mouth daily. Active hydrALAZINE (APRESOLINE) 25 mg tablet Take 25 mg by mouth every 12 hours. Active tamsulosin (FLOMAX) 0.4 mg capsule Take 0.4 mg by mouth daily. Active ferrous fumarate (FERRETTS) 325 mg (106 mg iron) Tablet Take 325 mg by mouth. Active aspirin (ECOTRIN EC) 81 mg Tablet, Delayed Release (E.C.) Take 81 mg by mouth daily. Active atorvastatin calcium (ATORVASTATIN ORAL) Take 40 mg by mouth daily. Unsure dosage Active L. acidophilus/pe ctin, citrus (ACIDOPHILUS-P ECTIN, CITRUS ORAL) Take by mouth. Activ e conjugated estrogens (PREMARIN) 0.625 mg/gram vaginal cream Insert 0.5 Grams vaginally daily at bedtime. 30 Gram 2 10/22/19 25 01/19/ 025 Active HYDROcodone-ac etaminophen (NORCO) 5-325 mg tabletIndicati ons:Right flank pain Take 1 Tablet by mouth every 8 hours as needed for Pain, Moderate or Pain, Severe. Max Daily Amount: 3 Tablets 10 Tablet 10/22/19 25 Active glyBURIDE (DIABETA) 1.25 mg tabletIndicati ons:Type 2 diabetes mellitus with diabetic neuropathy, without long-term current use of insulin ([facility]) Take 1 Tablet (1.25 mg) by mouth daily with breakfast. Hold if blood sugar is below 120. 100 Tablet 3 10/24/19 25 Active HYDROcodone-ac etaminophen (NORCO) 5-325 mg tabletIndicati ons:Flank pain Take 1 Tablet by mouth every 6 hours as needed for Pain. Max Daily Amount: 4 Tablets 10 Tablet 10/29/19 25 Active CEFDINIR ORAL Take 300 mg by mouth every Saturday thru Saturday. Taking chronically M/W/F 025 Discontinued linezolid (ZYVOX) 600 mg tablet Take 1 Tablet (600 mg) by mouth 2 times daily for 5 days. 10 Tablet 10/22/19 25 025 Discontinued vancomycin (VANCOCIN) 125 mg Capsule Take 1 Capsule (125 mg) by mouth daily for 10 days. 10 Capsule 10/22/19 25 025 Discontinued conjugated estrogens (PREMARIN) 0.625 mg/gram vaginal cream Insert 0.5 Grams vaginally daily at bedtime. 30 Gram 2 10/22/19 25 025 Discontinued linezolid (ZYVOX) 600 mg tablet Take 1 Tablet (600 mg) by mouth 2 times daily for 3 days. 6 Tablet 10/24/19 25 025 Discontinued HYDROcodone-ac etaminophen (NORCO) 5-325 mg tabletIndicati ons:Right flank pain Take 1 Tablet by mouth every 8 hours as needed for Pain, Moderate or Pain, Severe. Max Daily Amount: 3 Tablets 10 Tablet 10/22/19 25 025 Discontinued vancomycin (VANCOCIN) 125 mg Capsule Take 1 Capsule (125 mg) by mouth daily for 10 days. 10 Capsule 10/22/19 25 025 linezolid (ZYVOX) 600 mg tablet Take 1 Tablet (600 mg) by mouth 2 times daily for 3 days. 6 Tablet 10/24/19 25 025 HYDROcodone-ac etaminophen (NORCO) 5-325 mg tabletIndicati ons:Right flank pain Take 1 Tablet by mouth every 8 hours as needed for Pain, Moderate or Pain, Severe. Max Daily Amount: 3 Tablets 10 Tablet 10/22/19 25 025 Discontinued HYDROcodone-ac etaminophen (NORCO) 5-325 mg tabletIndicati ons:Right flank pain Take 1 Tablet by mouth every 8 hours as needed for Pain, Moderate or Pain, Severe. Max Daily Amount: 3 Tablets 10 Tablet 10/22/19 25 025 Discontinued Active Problems Problem Noted Date Diagnosed Date Right flank pain 10/14/2024 Essential hypertension 10/14/2024 Mesenteric mass 10/14/2024 Benign hypertension with stage 3b chronic kidney disease 09/25/2024 History of non-Hodgkin's lymphoma 09/24/2024 Overview (09/24/2024): Mesenteric mass Known to be NHL as per family History of Clostridioides difficile colitis 05/2024 Hydronephrosis 09/23/2024 UTI (urinary tract infection) 09/23/2024 DENNISE (acute kidney injury) 09/23/2024 Kidney stone 09/23/2024 Kidney lesion 09/23/2024 Abnormal EKG 09/23/2024 Resolved Problems Problem Noted Date Diagnosed Date Resolved Date Stroke-like symptoms 09/23/2024 025 Hematuria 09/23/2024 09/25/2024 Thrombocytopenia 09/23/2024 09/25/2024 Encounters Date Type Department Care Team Description 11/03/2024 12:30 PM CDT - 11/03/2024 11:59 PM CDT Hospital Encounter [facility] Nuclear Medicine [address] [place] [address] Cruz Mckinney MD Arrived Discharge Disposition: Home or Self Care 11/03/2024 Orders Only [facility] Health Information Management [place] [address] [place] [address] Provider, Abstract 11/02/2024 Telephone [facility] Family Medicine- [address] [place] [address] Jimmy Caballero DO Provider Call 10/29/2024 7:30 AM CDT - 10/29/2024 11:59 PM CDT Hospital Encounter [facility] Ultrasound [address] [place] [phone] Omid Carroll MD Discharge Disposition: Home or Self Care 10/29/2024 6:13 AM CDT - 10/29/2024 11:59 PM CDT Hospital Encounter [facility] Interventional Radiology [place] [address] [phone] Omid Carroll MD Birlew, Ryan Avery, MD Discharge Disposition: Home or Self Care 10/28/[address] [facility] Urolog[address] [place] [phone] Omid Carroll MD Flank pain (Primary Dx) 10/28/[address] [facility] Interventional Radiology [place] [address] [place] [phone] Cathy Huerta RN Procedure 10/26/[address] [place] [phone] Omid Carroll MD Pain 10/23/2024 2:30 PM CDT Video Visit [address] [place] [address] Seema Damon NP Type 2 diabetes mellitus with diabetic neuropathy, without long-term current use of insulin ([facility]) (Primary Dx); Status post placement of ureteral stent; Mesenteric mass; Anemia, unspecified type; Low serum albumin 10/23/[address] [place] [address] Seema Damon NP Clinical Consult Before Scheduling 10/20/2024 External Device Data [facility] ABSTRACTION Provider, Abstract 10/20/2024 External Device Data [facility] Provider, Abstract 10/20/2024 External Device Data [facility] [place] Provider, Abstract 10/19/2024 2:58 PM CDT - 10/19/2024 4:[address] [facility] Operating Room [address] [place] [phone] Omid Carroll MD CYSTOURETHROSCOPY URETERAL STENT EXCHANGE 10/19/2024 2:26 PM CD[address] Anesthesia Event [facility] Operating Room [address] [place] [phone] Nay Connelly MD Brewer, Tanya L, HIGHWAY WORKER 10/19/[address] [facility] Cancer and Hematology [place] [address] [address] Cruz Mckinney MD Mesenteric mass (Primary Dx); Abnormal findings on diagnostic imaging of other abdominal regions, including retroperitoneum 10/15/[address] [place] [phone] Omid Carroll MD Information 10/13/2024 10:27 PM CDT - 10/21/2024 8:10 PM CDT Hospital Encounter [facility] 7B Medical Surgical [address] [place] [phone] Abdi Zuniga MD Jones, DO Waldemar Thomson, MD Biju Donis Tasnuva Tarannum, MD Right flank pain Discharge Disposition: Home or Self Care 10/13/2024 Travel 10/13/[address] [facility] Urolog[address] [place] [address] Omid Carroll MD Pain 10/07/2024 External Device Data [place] Provider, Abstract 10/06/2024 External Device Data [place] Provider, Abstract 10/05/[address] [facility] Cancer and Hematology [place] [address] [place] [address] Provider, Abstract 10/02/2024 Results Follow-Up [address] [place] [address] Seema Dmaon, AUTHORIZATION COORDINATOR TSH, BASIC METABOLIC PANEL, CBC WITH DIFFERENTIAL 10/02/2024 Abstract [facility] [address] [place] [phone] Provider, Abstract 10/02/2024 Orders Only [facility] [address] [place] [phone] Provider, Abstract 09/30/2024 9:00 AM CDT Office Visit [address] [place] [place] [address] Seema Damon, AUTHORIZATION COORDINATOR Urinary tract infection with hematuria, site unspecified (Primary Dx); Mesenteric mass; 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 Operating Room [address] [place] [phone] Omid Carroll MD CYSTOURETHROSCOPY BILATERAL URETERAL STENT EXCHANGE 09/23/2024 4:59 [address]hesia Event [facility] Operating Room [address] [place] [phone] Khang Arredondo MD Sabini, Margaret M, HIGHWAY WORKER 09/23/2024 4:31 AM CDT - 09/25/2024 3:42 PM CDT Hospital Encounter [facility] 6CD Neurology [address] [place] [phone] Angel Rodriguez MD Broughton, John D, MD Siddiqi, Talha, MD UTI (urinary tract infection) Discharge Disposition: Home Health Care [facility] 09/23/2024 Travel from Last 3 Months Immunizations Immunization Administration Dates Next Due INFLUENZA VACCINE QUADRIVALENT 6 MOS UP IM 01/17 Social History Tobacco Use Types Packs/Day Years Used Date Smoking Tobacco: Former Cigarettes Q uit: 1979 Tobacco Cessation:Counseling Given: Not Answered Alcohol Use Standard Drinks/Week Comments Never 0 (1 standard drink = 0.6 oz pur e alcohol) Comments No Sex and Gender Information Value Date Recorded Sex Assigned at Not on file 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 Gender Identity Not on file Sexual Orientation Not on file Last Filed Vital Signs Vital Sign Reading [...] Mass Index 40.24 10/29/2024 6:41 AM CDT Plan of Treatment Upcoming Encounters Date Type Department Care Team (Late st Contact Info) Description 11/06/2024 12:00 PM CDT Appointment [facility] Laboratory Services [address] [phone] 11/06/2024 1:00 PM CDT Office Visit [facility] Cancer and Hematology [place] [address] [phone] Cruz Mckinney MD [address] [place] [phone] 12/18/2024 3:30 PM CDT Office Visit [facility] Medicine- [address] [place] [address] Seema Damon, AUTHORIZATION COORDINATOR [address] [place] [address] [place] [address] Health Maintenance Due Date Last Done Comments DIABETES ANNUAL FOOT EXAM 1971 DIABETES ANNUAL RETINAL EXAM 1971 DIABETES MICROALBUMIN ANNUAL SCREEN 1971 FIT/ DNA Q 3 YEARS (AUTO ORDER) 1971 FIT/FOBT Q 1 YEAR (AUTO ORDER) 1971 FLEX SIG/CT COLONOGRAPHY Q 5 YEARS (AUTO ORDER) 1971 DTAP/TDAP/TD VACCINES (1 - Tdap) 1972 PNEUMOCOCCAL VACCINE 50+ YEA RS (1 of 2 - PCV) 1972 ZOSTER VACCINE (1 of 2) 1972 BREAST CANCER SCREENING 1993 FIT-DNA Q 3 years 1998 FIT/FOBT Q 1 year 1998 Flex Sig/CT Colonography Q 5 years 1998 RSV VACCINE (60+ or ) (1 - Risk 60-74 years 1-dose series) 2013 COVID-19 Vaccine (3 - 2023-2 5 season) 2023 12/09/2020, 11/11/2020 [place] Preventative Visit/Annual Wellness Visit 03/25/2024 11/19/2023 INFLUENZA VACCINE (#1) 2024 01/17/2015 DIABETES HBA1C Q 6 MONTHS 04/16/20252024, 09/23/2024, 08/15/2023 LDL CHOLESTEROL ANNUAL 09/24/2025 09/24/2024 DIABETES: A1C (Auto Order) 10/14/202510/14, 09/23/2024, 08/15/2023 OSTEOPOROSIS SCREENING 07/26/2026 07/26/2021 COLORECTAL CANCER SCREENING (AUTO ORDER) 09/01/2031 08/31/2021 COLORECTAL SCREENING 09/01/2031 08/31/2021 Colorectal Cancer Screening (AUTO ORDER) 09/01/2031 Colorectal Cancer Screening 09/01/2031 KHE eGFR (Auto Order) Completed 10/21/2024 , 10/20/2024, 10/19/2024, Additional history exists KHE uACR (Auto Order) Completed 10/21/2024 Medical Devices Implanted Type Area Cat Operator Device Identifier Shelf Expiration Date Model / Serial / Lot 8fr Flexima Nephrostomy Tube-10/29/2024 Implanted:Qty: 1 on 10/29/2024 by Al Kapadia MD Catheter Right: Kidney 08/24/2027 [id number] / / [id number] Description:8fr Flexima Neph rostomy Tube implanted in right kidney Stent Percuflex+ 8fr 24cm [id number] - [id number] Implanted:Qty: 1 on 10/19/2024 by Omid Carroll MD at [facility] Stent Left: Ureter [employer]/BLOCKING MACHINE TENDER [id number] 06/03/2027 [id number] / / [id number] Description:no string. Stent Percuflex+ 8fr 24cm [id number] - [id number] Implanted:Qty: 1 on 10/19/2024 by Omid Carroll MD at [facility] Stent Right: Ureter [employer]/BLOCKING MACHINE TENDER [id number] 06/03/2027 [id number] 820 / / [id number] Explanted Type Area Cat Operator Device Identifier Shelf Expiration Date Model / Serial / Lot Stent Percuflex+ 8fr 24cm [id number] - [id number] Implanted:Qty: 1 on 09/23/2024 by Omid Carroll MD at [facility] Explanted:Qty: 1 on 10/19/2024 by Omid Carroll MD at [facility] Stent N/A: Ureter [employer]/BLOCKING MACHINE TENDER [id number] 06/03/2027 [id number] 20 / / [id number] Stent Percuflex+ 8fr 24cm [id number] - [id number] Implanted:Qty: 1 on 09/23/2024 by Omid Carroll MD at [facility] Explanted:Qty: 1 on 10/19/2024 by Omid Carroll MD at [facility] Stent N/A: Ureter [employer]/BLOCKING MACHINE TENDER [id number] 03/09/2027 [id number] / / [id number] Procedures Procedure Name Priority Date/Time Associated Diagnosis Comments POC GLUCOSE Routine 11/03/2024 1:14 PM CDT US GUIDE NEEDLE PLACEMENT Routine 10/29/2024 8:52 AM CDT Hydronephrosis, unspecified hydronephrosis type IR TUBE PLACEMENT Routine 10/29/2024 8:13 AM CDT Hydronephrosis, unspecified hydronephrosis type PROTIME-INR Routine 10/29/2024 6:41 AM CDT CBC WITHOUT DIFFERENTIAL Stat 10/29/2024 6:41 AM CDT TELEMETRY REPORT 10/22/2024 2:23 PM CDT IMMUNOTYPING, 24 HR URINE Routine 10/21/2024 7:49 PM CDT PROTEIN ELECTROPHORESIS W/REFLEX,24HR URINE Routine 10/21/2024 7:49 PM CDT POC GLUCOSE Routine 10/21/2024 5:43 PM CDT POC GLUCOSE Routine 10/21/2024 11:24 AM CDT POC GLUCOSE Routine 10/21/2024 7:20 AM CDT COMPREHENSIVE METABOLIC PANEL Routine 10/21/2024 4:08 AM CDT CBC WITH DIFFERENTIAL Routine 10/21/2024 4:08 AM CDT POC GLUCOSE Routine 10/20/2024 9:08 PM CDT POC GLUCOSE Routine 10/20/2024 5:45 PM CDT US ABDOMEN LIMITED Routine 10/20/2024 12:43 PM CDT POC GLUCOSE Routine 10/20/2024 11:47 AM CDT PT EVAL AND TREAT Routine 10/20/2024 9:56 AM CDT POC GLUCOSE Routine 10/20/2024 7:22 AM CDT COMPREHENSIVE METABOLIC PANEL Routine 10/20/2024 6:36 AM CDT CBC WITH DIFFERENTIAL Routine 10/20/2024 6:36 AM CDT POC GLUCOSE Routine 10/20/2024 3:47 AM CDT POC GLUCOSE Routine 10/19/2024 8:48 PM CDT POC GLUCOSE Routine 10/19/2024 5:43 PM CDT POC GLUCOSE Routine 10/19/2024 3:38 PM CDT XR FLUORO LESS THAN 1 HOUR Pending Discharge 10/19/2024 3:15 PM CDT CYSTOURETHROSCOPY URETERAL STENT EXCHANGE 10/19/2024 2:58 PM CDT MO ANES INSERT SUPRAGLOTTIC AIRWAY Routine 10/19/2024 2:56 PM CDT POC GLUCOSE Routine 10/19/2024 11:32 AM CDT CK Routine 10/19/2024 8:44 AM CDT COMPREHENSIVE METABOLIC PANEL Stat 10/19/2024 8:44 AM CDT CBC WITH DIFFERENTIAL Routine 10/19/2024 8:44 AM CDT POC GLUCOSE Routine 10/19/2024 7:12 AM CDT POC GLUCOSE Routine 10/18/2024 8:38 PM CDT POC GLUCOSE Routine 10/18/2024 5:06 PM CDT POC GLUCOSE Routine 10/18/2024 11:44 AM CDT CBC WITH DIFFERENTIAL Routine 10/18/2024 10:30 AM CDT POC GLUCOSE Routine 10/18/2024 6:58 AM CDT COMPREHENSIVE METABOLIC PANEL Routine 10/18/2024 6:21 AM CDT POC GLUCOSE Routine 10/17/2024 5:00 PM CDT POC GLUCOSE Routine 10/17/2024 12:09 PM CDT POC GLUCOSE Routine 10/17/2024 7:16 AM CDT CBC WITH DIFFERENTIAL Routine 10/17/2024 4:06 AM CDT IMMUNOFIXATION Routine 10/17/2024 4:04 AM CDT GRAHAM SCREEN W/REFLEX Routine 10/17/2024 4:04 AM CDT KAPPA/LAMBDA LIGHT CHAINS Routine 10/17/2024 4:04 AM CDT PROTEIN ELECTROPHORESIS W/REFLEX,SERUM Routine 10/17/2024 4:04 AM CDT FERRITIN Routine 10/17/2024 4:04 AM CDT IRON, TIBC, AND PERCENT SATURATION Routine 10/17/2024 4:04 AM CDT COMPREHENSIVE METABOLIC PANEL Routine 10/17/2024 4:04 AM CDT VITAMIN B12 AND FOLATE Routine 4:03 AM CDT POC GLUCOSE Routine 10/16/2024 10:00 PM CDT POC GLUCOSE Routine 10/16/2024 5:04 PM CDT POC GLUCOSE Routine 10/16/2024 11:33 AM CDT BLOOD CULTURE Routine 10/16/2024 10:18 AM CDT BLOOD CULTURE Routine 10/16/2024 10:18 AM CDT BLOOD CULTURE Routine 10/16/2024 10:02 AM CDT BLOOD CULTURE Routine 10/16/2024 10:02 AM CDT POC GLUCOSE Routine 10/16/2024 7:16 AM CDT COMPREHENSIVE METABOLIC PANEL Routine 10/16/2024 3:52 AM CDT CBC WITH DIFFERENTIAL Routine 10/16/2024 3:52 AM CDT POC GLUCOSE Routine 10/15/2024 8:25 PM CDT POC GLUCOSE Routine 10/15/2024 5:26 PM CDT URINE CULTURE Routine 10/15/2024 1:54 PM CDT POC GLUCOSE Routine 10/15/2024 12:47 PM CDT POC GLUCOSE Routine 10/15/2024 11:39 AM CDT POC GLUCOSE Routine 10/15/2024 7:05 AM CDT COMPREHENSIVE METABOLIC PANEL Routine 10/15/2024 3:47 AM CDT CBC WITH DIFFERENTIAL Routine 10/15/2024 3:47 AM CDT POC GLUCOSE Routine 10/14/2024 9:00 PM CDT POC GLUCOSE Routine 10/14/2024 4:43 PM CDT HEMOGLOBIN A1C Routine 10/14/2024 9:48 AM CDT POC GLUCOSE Routine 10/14/2024 7:15 AM CDT BASIC METABOLIC PANEL Stat 10/14/2024 3:38 AM CDT CBC WITH DIFFERENTIAL Stat 10/14/2024 3:[address] ABDOMEN PELVIS WO CONTRAST Stat 10/13/2024 9:23 PM CDT EXTRA TUBE (URINE BRISCOE) Stat 10/14/19 25 4:36 PM CDT URINALYSIS W/REFLEX MICROSCOPIC Stat 10/13/2024 4:36 PM CDT LIPASE Stat 10/13/2024 4:36 PM CDT COMPREHENSIVE METABOLIC PANEL Stat 10/13/2024 4:36 PM CDT CBC WITH DIFFERENTIAL Stat 10/13/2024 4:36 PM CDT URINE CULTURE Stat 10/13/2024 4:36 PM CDT CBC WITH DIFFERENTIAL Routine 09/30/2024 10:15 AM CDT Mesenteric mass Urinary tract infection with hematuria, site unspecified BASIC METABOLIC PANEL Routine 09/30/2024 9:59 AM CDT Urinary tract infection with hematuria, site unspecified TSH Routine 09/30/2024 9:59 AM CDT 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 TELEMETRY REPORT 09/26/2024 2:38 AM CDT POC GLUCOSE Routine 09/25/2024 11:25 AM CDT CBC WITH DIFFERENTIAL Routine 09/25/2024 3:27 AM CDT BASIC METABOLIC PANEL Routine 09/25/2024 3:27 AM CDT POC GLUCOSE Routine 09/24/2024 5:22 PM CDT POC GLUCOSE Routine 09/24/2024 11:14 AM CDT POC GLUCOSE Routine 09/24/2024 7:35 AM CDT COMPREHENSIVE METABOLIC PANEL Routine 09/24/2024 5:53 AM CDT CBC WITH DIFFERENTIAL Routine 09/24/2024 5:53 AM CDT LIPID PANEL Routine 09/24/2024 5:53 AM CDT POC GLUCOSE Routine 09/24/2024 12:08 AM CDT XR FLUORO LESS THAN 1 HOUR Routine 09/23/2024 11:15 PM CDT MRI BRAIN WO CONTRAST Routine 09/23/2024 10:54 PM CDT URINALYSIS W/REFLEX MICROSCOPIC Routine 09/23/2024 6:52 PM CDT URINE CULTURE Routine 09/23/2024 6:52 PM CDT MO CYSTO W/INSERT URETERAL STENT 09/23/2024 6:17 PM CDT POC GLUCOSE Routine 09/23/2024 5:49 PM CDT MO ANES INSERT SUPRAGLOTTIC AIRWAY Routine 09/23/2024 5:06 PM CDT POC GLUCOSE Routine 09/23/2024 4:08 PM CDT HEMOGLOBIN AND HEMATOCRIT Routine 09/23/2024 12:17 PM CDT HEMOGLOBIN A1C Routine 09/23/2024 12:17 PM CDT POC GLUCOSE Routine 09/23/2024 11:23 AM CDT POC GLUCOSE Routine 09/23/2024 8:12 AM CDT COMPREHENSIVE METABOLIC PANEL Stat 09/23/2024 8:10 AM CDT CBC WITHOUT DIFFERENTIAL Stat 09/23/2024 8:10 AM CDT BLOOD CULTURE Routine 09/23/2024 8:10 AM CDT BLOOD CULTURE Routine 09/23/2024 8:10 AM CDT ENTRY LEVEL MANAGER EVALUATE AND TREAT Routine 6:28 AM CDT PT EVAL AND TREAT Routine 09/23/2024 6:28 AM CDT EKG 12-LEAD Stat 09/23/2024 6:20 AM CDT CBC WITH DIFFERENTIAL Routine 09/23/2024 5:56 AM CDT COMPREHENSIVE METABOLIC PANEL Routine 09/23/2024 5:56 AM CDT MAGNESIUM LEVEL Routine 09/23/2024 5:56 AM CDT PHOSPHORUS Routine 09/23/2024 5:56 AM CDT BLOOD CULTURE Routine 09/23/2024 5:56 AM CDT BLOOD CULTURE Routine 09/23/2024 5:56 AM CDT COMPREHENSIVE METABOLIC PANEL Routine 09/22/2024 3:23 PM CDT COMPREHENSIVE METABOLIC PANEL Routine 09/21/2024 3:22 PM CDT COMPREHENSIVE METABOLIC PANEL Routine 09/20/2024 3:22 PM CDT PROTIME-INR Routine 09/20/2024 from Last 3 Months Results * (ABNORMAL) POC GLUCOSE (11/03/2024 1:14 PM CDT) Only the most recent of42 resultswithin the time period is included. [facility] GLUCOSE POC 159(H) 74 - 99 mg/dL 11/03/2024 1:14 PM CDT [facility] SPECIMEN SOURCE, GLUCOSE POC Whole Blood 11/03/2024 1:14 PM CDT [facility] Blood, whole 11/03/2024 1:14 PM CDT 11/03/2024 1:28 PM CDT us Cruz Mckinney MD POINT OF CARE TESTING Final R esult [facility] CLIA # [id number] [address] [place] [id number] * US GUIDE NEEDLE PLACEMENT (10/29/2024 8:52 AM CDT) Anatomical Region Laterality Modality Ultrasound 10/29/2024 8:53 AM CDT Impressions 10/29/2024 1:23 PM CDT IMPRESSION: Please see below. Exam: Ultrasound and fluoroscopic-guided right percutaneous nephrostomy tube placement 1. Ultrasound guided micropuncture access of a posterior superior right renal calyx 2. Antegrade pyelogram 3. Placement of a right 8 [place] nephrostomy tube Date/Time of Exam: 10/29/2024 8:13 [...] in the medical record on the [facility]-approved form, 'Sedative/Analgesic Administration for Diagnostic and Therapeutic Procedures'. Please see nursing flow sheets for dosage and time. Sedation was administered by a trained independent observer. I personally supervised 30 minutes of sedation. Contrast: 5 ml Isovue-300 Fluoroscopy time: 0.8 minutes Estimated Blood Loss: Minimal Complications:None Implantable Devices: 8 [place] nephrostomy tube Procedure: After informed consent was [...] transitional dilator was exchanged for an 8 [place] nephrostomy tube. The cope loop was formed [...] hydronephrosis. 3. Placement of a right 8 [place] nephrostomy tube with the cope loop formed in the renal pelvis. IMPRESSION: Successful ultrasound and fluoroscopic-guided placement of a right 8 [place] nephrostomy tube as above. Narrative 10/29/2024 1:23 PM CDT Procedure Note Al Kapadia MD - 10/29/2024 IMPRESSION: Please see below. Exam: Ultrasound and fluoroscopic-guided right percutaneous nephrostomy tube placement 1. Ultrasound guided micropuncture access of a posterior superior right renal calyx 2. Antegrade pyelogram 3. Placement of a right 8 [place] nephrostomy tube Date/Time of Exam: 10/29/2024 8:13 [...] in the medical record on the [facility]-approved form, 'Sedative/Analgesic Administration for Diagnostic and Therapeutic Procedures'. Please see nursing flow sheets for dosage and time. Sedation was administered by a trained independent observer. I personally supervised 30 minutes of sedation. Contrast: 5 ml Isovue-300 Fluoroscopy time: 0.8 minutes Estimated Blood Loss: Minimal Complications:None Implantable Devices: 8 [place] nephrostomy tube Procedure: After informed consent was [...] transitional dilator was exchanged for an 8 [place] nephrostomy tube. The cope loop was formed [...] hydronephrosis. 3. Placement of a right 8 [place] nephrostomy tube with the cope loop formed in the renal pelvis. IMPRESSION: Successful ultrasound and fluoroscopic-guided placement of a right 8 [place] nephrostomy tube as above. us Omid Carroll MD US ORDERABLES Final Result * IR TUBE PLACEMENT (10/29/2024 8:13 AM CDT) Anatomical Region Laterality Modality X-Ray Angiograph y 10/29/2024 8:14 AM CDT Impressions 10/29/2024 1:13 PM CDT IMPRESSION: Please see below. Exam: Ultrasound and fluoroscopic-guided right percutaneous nephrostomy tube placement 1. Ultrasound guided micropuncture access of a posterior superior right renal calyx 2. Antegrade pyelogram 3. Placement of a right 8 [place] nephrostomy tube Date/Time of Exam: 10/29/2024 8:13 [...] in the medical record on the [facility]-approved form, 'Sedative/Analgesic Administration for Diagnostic and Therapeutic Procedures'. Please see nursing flow sheets for dosage and time. Sedation was administered by a trained independent observer. I personally supervised 30 minutes of sedation. Contrast: 5 ml Isovue-300 Fluoroscopy time: 0.8 minutes Estimated Blood Loss: Minimal Complications:None Implantable Devices: 8 [place] nephrostomy tube Procedure: After informed consent was [...] transitional dilator was exchanged for an 8 [place] nephrostomy tube. The cope loop was formed [...] hydronephrosis. 3. Placement of a right 8 [place] nephrostomy tube with the cope loop formed in the renal pelvis. IMPRESSION: Successful ultrasound and fluoroscopic-guided placement of a right 8 [place] nephrostomy tube as above. Narrative Procedure Note Al Kapadia MD - 10/29/2024 IMPRESSION: Please see below. Exam: Ultrasound and fluoroscopic-guided right percutaneous nephrostomy tube placement 1. Ultrasound guided micropuncture access of a posterior superior right renal calyx 2. Antegrade pyelogram 3. Placement of a right 8 [place] nephrostomy tube Date/Time of Exam: 10/29/2024 8:13 [...] in the medical record on the [facility]-approved form, 'Sedative/Analgesic Administration for Diagnostic and Therapeutic Procedures'. Please see nursing flow sheets for dosage and time. Sedation was administered by a trained independent observer. I personally supervised 30 minutes of sedation. Contrast: 5 ml Isovue-300 Fluoroscopy time: 0.8 minutes Estimated Blood Loss: Minimal Complications:None Implantable Devices: 8 [place] nephrostomy tube Procedure: After informed consent was [...] transitional dilator was exchanged for an 8 [place] nephrostomy tube. The cope loop was formed [...] hydronephrosis. 3. Placement of a right 8 [place] nephrostomy tube with the cope loop formed in the renal pelvis. IMPRESSION: Successful ultrasound and fluoroscopic-guided placement of a right 8 [place] nephrostomy tube as above. us Omid Carroll MD IR ORDERABLES Final Result * PROTIME-INR (10/29/2024 6:41 AM CDT) Only the most recent of2 resultswithin the time period is included. PROTIME 14.4 12.7 - 14.9 Seconds 10/29/2024 7:11 AM CDT [facility] Mirego [facility] INR 1.1 0.8 - 1.2 10/29/2024 7[facility] Venip[facility] / Unknown 10/29/2024 6:41 AM CDT 10/29/2024 6:59 AM CDT [facility] - 10/29/2024 7:11 AM CDT Expected Values for INR: DVT/PE Goal INR 2.5; range 2.0 - 3.0 Valve Replacement Tissue Goal INR 2.5; range 2.0 - 3.0 Valve Replacement Mechanical Goal INR 3.0; range 2.5 - 3.5 POST-IN Goal INR 2.5; range 2.0 - 3.0 or Goal INR 3.0; range 2.5 - 3.5 Atrial Fibrillation Goal INR 2.5; range 2.0 - 3.0 Ischemic Stroke Goal INR 2.5; range 2.0 - 3.0 us Al Kapadia MD HEMATOLOGY ORDERABLES Final Result [facility] CLIA # [id number] [facility] [address] * (ABNORMAL) CBC WITHOUT DIFFERENTIAL (10/29/2024 6:41 AM CDT) Only the most recent of2 resultswithin the time period is included. [facility] WBC 7.8 4.8 - 10.8 K/uL 10/29/2024 7:13 AM [facility] RBC 3.25(L) 4.20 - 5.40 M/uL 10/29/2024 7:13 AM [facility] HEMOGLOBIN 9.5(L) 12.0 - 16.0 g/dL 10/29/2024 7:13 AM [facility] HEMATOCRIT 30.4(L) 36.0 - 46.0 % 10/29/2024 7:13 AM [facility] MCV 93.5 84.0 - 103.0 fL 10/29/2024 7:13 AM [facility] MCH 29.2 27.0 - 34.0 pg 10/29/2024 7:13 AM CDT [facility] MCHC 31.3 30.0 - 35.0 g/dL 10/29/2024 7:13 AM CDT [facility] PLATELETS 105(L) 140 - 440 K/uL 10/29/2024 7:13 AM CDT [facility] MPV 11.7 8.9 - 12.8 fL 10/29/2024 7:13 AM CDT [facility] RDW 13.9 11.0 - 14.5 % 10/29/2024 7:13 AM CDT [facility] RDW-STDEV 46.6 37.0 - 54.0 fL 10/29/2024 7:13 AM CDT [facility] Blood Venipuncture / Unknown 10/29/2024 6:41 AM CDT 10/29/2024 6:59 AM CDT Al Kapadia MD HEMATOLOGY ORDERABLES Final Result [facility] # [id number] [address] [place] [address] * TELEMETRY REPORT (10/22/2024 2:23 PM CDT) Only the most recent of2 resultswithin the time period is included. Provider Scanning ECG ORDERABLES Final Result * IMMUNOTYPING, 24 HR URINE (10/21/2024 7:49 PM CDT) IMMUNOTYPING INTERP, 24 HR URINE See Interpretation Below 10/22/2024 3:48 PM CDT [facility] Comment: Immunotyping of 24 hour urine specimen demonstrates IgG kappa monoclonal band. Interpreted by: Beto Chang M.D. INTERPRETED BY: Beto Chang MD 10/22/2024 3:48 PM CDT [facility] Urine, 24 hour 24 hr urine / Unknown 10/21/2024 7:49 PM CDT 10/21/2024 8:05 PM CDT us Zaria Mcduffie AUTHORIZATION COORDINATOR URINE ORDERABLES Final Res ult [facility] CLIA # [id number] [address] [place] [address] [place] [address] * (ABNORMAL) PROTEIN ELECTROPHORESIS W/REFLEX,24HR URINE (10/21/2024 7:49 PM CDT) LENGTH OF COLLECTION 24 HR URINE 24 24 HR 10/22/2024 3:47 PM CDT [facility] VOLUME, 24 HR URINE 1,200 mL 10/22/2024 3:47 PM CDT [facility] PROTEIN CONCENTRATION 100(H) 0 - 20 mg/dL 10/22/2024 3:47 PM CDT [facility] PROTEIN TOTAL, 24 HR URINE 1,200(H) <150 mg/24 hrs 10/22/2024 3:47 PM CDT [facility] CREATININE, URINE 66.4 29.0 - 226.0 mg/dL 10/22/2024 3:47 PM T [facility] Comment:Reference Range vari es with fluid intake and diet. CREATININE, 24 HR URINE 0.8 0.7 - 1.5 g/24 hrs 10/22/2024 3:47 PM CDT [facility] % MONOCLONAL PROTEIN 1, 24 HR UPE 4.1 % 10/22/2024 3:47 PM CDT [facility] MONOCLONAL PROTEIN 1, 24HR UPE 49 mg/24 HR 10/22/2024 3:47 PM T [facility] 24 HR UPE INTERP See Interpretation Below 10/22/2024 3:47 PM T [facility] Comment: Monoclonal band identified in 24 hour urine specimen, quantitated at 49 mg/24 hrs. Please see immunotyping study for confirmation. Interpreted by: Beto Chang M.D. INTERPRETED BY: Beto Chang MD 10/22/2024 3:47 PM CDT [facility] Urine, 24 hour 24 hr urine / Unknown 10/21/2024 7:49 PM CDT 10/21/2024 8:05 PM CDT us Zaria Mcduffie AUTHORIZATION COORDINATOR URINE ORDERABLES Final Res ult [facility] CLIA # [id number] [facility] [address] * (ABNORMAL) CBC WITH DIFFERENTIAL (10/21/2024 4:08 AM CDT) Only the most recent of13 resultswithin the time period is included. WBC 7.1 4.8 - 10.8 K/uL 10/21/2024 4:34 AM T [facility] RBC 2.87(L) 4.20 - 5.40 M/uL 10/21/2024 4:34 AM T [facility] HEMOGLOBIN 8.2(L) 12.0 - 16.0 g/dL 10/21/2024 4:34 AM [facility] HEMATOCRIT 27.3(L) 36.0 - 46.0 % 10/21/2024 4:34 AM T [facility] MCV 95.1 84.0 - 103.0 fL 10/21/2024 4:34 AM CDT [facility] MCH 28.6 27.0 - 34.0 pg 10/21/2024 4:34 AM T [facility] MCHC 30.0 30.0 - 35.0 g/dL 10/21/2024 4:34 AM T [facility] PLATELETS 121(L) 140 - 440 K/uL 10/21/2024 4:34 AM T [facility] MPV 12.0 8.9 - 12.8 fL 10/21/2024 4:34 AM [facility] RDW 14.2 11.0 - 14.5 % 10/21/2024 4:34 AM [facility] RDW-STDEV 49.6 37.0 - 54.0 fL 10/21/2024 4:34 AM [facility] NEUTROPHILS 36(L) 42 - 75 % 10/21/2024 4:34 AM [facility] LYMPHOCYTES 40 24 - 44 % 10/21/2024 4:34 AM [facility] MONOCYTES 23(H) 2 - 10 % 10/21/2024 4:34 AM [facility] EOSINOPHILS 1 0 - 7 % 10/21/2024 4:34 AM [facility] BASOPHILS 0 0 - 1 % 10/21/2024 4:34 AM [facility] IMMATURE GRANULOCYTES 0 0 - 2 % 10/21/2024 4:34 AM [facility] NEUTROPHIL ABSOLUTE 2.58 2.00 - 8.00 K/uL 10/21/2024 4:34 AM [facility] LYMPHOCYTE ABSOLUTE 2.79 1.20 - 4.00 K/uL 10/21/2024 4:34 AM [facility] MONOCYTE ABSOLUTE 1.61(H) 0.10 - 0.60 K/uL 10/21/2024 4:34 AM [facility] EOSINOPHIL ABSOLUTE 0.04 0.00 - 0.70 K/uL 10/21/2024 4:34 AM [facility] BASOPHILS ABSOLUTE 0.02 0.00 - 0.20 K/uL 10/21/2024 4:34 AM [facility] IMMATURE GRANULOCYTES ABSOLUTE 0.03 0.00 - 0.10 K/uL 10/21/2024 4:34 AM [facility] SMEAR REVIEWED: NA - Not Applicable 10/21/2024 4:34 AM [facility] Blood Venipuncture / Unknown 10/21/2024 4:08 AM CDT 10/21/2024 4:19 AM CDT us Zari Ivy MD HEMATOLOGY ORDERABLES Final Result [facility] # [id number] [address] [facility] [place] [address] * (ABNORMAL) COMPREHENSIVE METABOLIC PANEL (10/21/2024 4:08 AM CDT) Only the most recent of14 resultswithin the time period is included. SODIUM 139 136 - 145 mmol/L 10/21/2024 4:57 AM T [facility] POTASSIUM 4.2 3.5 - 5.1 mmol/L 10/21/2024 4:57 AM T [facility] CHLORIDE 111(H) 98 - 107 mmol/L 10/21/2024 4:57 AM T [facility] CO2 18(L) 22 - 29 mmol/L 10/21/2024 4:57 AM T [facility] CALCIUM 8.5(L) 8.8 - 10.2 mg/dL 10/21/2024 4:57 AM T [facility] BUN 30(H) 8 - 23 mg/dL 10/21/2024 4:57 AM T [facility] CREATININE 1.67(H) 0.51 - 0.95 mg/dL 10/21/2024 4:57 AM T [facility] Comment:The GFR result is no t clinically significant on patients <18 or >70 years of age. GLUCOSE 173(H) 74 - 99 mg/dL 10/21/2024 4:57 AM T [facility] TOTAL PROTEIN 6.9 6.4 - 8.3 g/dL 10/21/2024 4:57 AM T [facility] ALBUMIN 3.2(L) 3.5 - 5.2 g/dL 10/21/2024 4:57 AM T [facility] BILIRUBIN TOTAL 0.4 0.0 - 1.0 mg/dL 10/21/2024 4:57 AM CDT [facility] ALKALINE PHOSPHATASE 100 35 - 104 U/L 10/21/2024 4:57 AM CDT [facility] AST 21 10 - 35 U/L 10/21/2024 4:57 AM CDT [facility] ALT 22 <=35 U/L 10/21/2024 4:57 AM CDT [facility] GFR 33 mL/min/1. 73 sq meter 10/21/2024 4:57 AM T [facility] Comment:eGFR calculated with 2020 CKD-EPI equation. Vegetarian diet, extremely high or low muscle mass, and may affect results. Cystatin C with Glomerular Filtration Rate is a suitable alternative for these patients. ANION GAP 10 9 - 20 mmol/L 10/21/2024 4:57 AM CDT [facility] Blood Venipuncture / Unknown 10/21/2024 4:08 AM CDT 10/21/2024 4:20 AM CDT us Zari Ivy MD CHEMISTRY ORDERABLES Final Result [facility] CLIA # [id number] [address] [place] [address] * US ABDOMEN LIMITED (10/20/2024 12:43 PM CDT) Anatomical Region Laterality Modality Abdomen Ultrasound 10/20/2024 12:4 3 PM CDT Impressions 10/20/2024 12:51 PM CDT IMPRESSION: See below. Exam: US ABDOMEN LIMITED Date/Time of Exam: 10/20/2024 12:43 PM Reason For Exam: Abdominal Pain RLQ. Diagnosis: Right flank pain; History of non-Hodgkin's lymphoma; Kidney stone; Urinary tract infection with hematuria, site unspecified; Urinary tract infection with hematuria, site unspecified. Comparison: None. Impression: Right lower quadrant was scanned. There are two hypoechoic areas with more anterior area measuring 1.3 x 1.3 x 1.5 cm and more posterior hypoechoic area measuring 1.0 x 1.1 x 1.2 cm. There is no internal vascularity. These likely represent small hematomas although infection is difficult to completely exclude. Narrative Procedure Note Kale Balderas MD - 10/20/2024 IMPRESSION: See below. Exam: US ABDOMEN LIMITED Date/Time of Exam: 10/20/2024 12:43 PM Reason For Exam: Abdominal Pain RLQ. Diagnosis: Right flank pain; History of non-Hodgkin's lymphoma; Kidney stone; Urinary tract infection with hematuria, site unspecified; Urinary tract infection with hematuria, site unspecified. Comparison: None. Impression: Right lower quadrant was scanned. There are two hypoechoic areas with more anterior area measuring 1.3 x 1.3 x 1.5 cm and more posterior hypoechoic area measuring 1.0 x 1.1 x 1.2 cm. There is no internal vascularity. These likely represent small hematomas although infection is difficult to completely exclude. us Zari Ivy MD US ORDERABLES Final Result * XR FLUORO LESS THAN 1 HOUR (10/19/2024 3:15 PM CDT) Only the most recent of2 resultswithin the time period is included. Narrative 10/19/2024 11:05 PM CDT Order information only. Exam was auto-finalized. us Omid Carroll MD DIAGNOSTIC IMAGING ORDERABLE S Final Result * MO ANES INSERT SUPRAGLOTTIC AIRWAY (10/19/2024 2:56 PM CDT) Narrative Melissa Kellogg CRNA - 10/19/2024 2:56 PM CDT Melissa Kellogg CRNA 10/19/2024 2:56 PM Airway Date/Time: 10/19/2024 2:56 PM Location: OR Plan: routine intubation Patient Identity Confirmed by: Verbally with patient and armband Airway: not difficult Staffing Performed: HIGHWAY WORKER/CAA Authorized by: Nay Connelly MD Performed by: Melissa Kellogg CRNA Indications and Patient Condition: Indications for Airway Management: Anesthesia Sedation Level: general anesthesia Preoxygenated: yes Patient Position: Sniffing Mask Difficulty Assessment: 0 - not attempted Plan to extubate at end of case: Yes Final Airway Details: Final Airway Type: Supraglottic airway Final Supraglottic Airway: LMA LMA size: 4 Tube secured with: Tape Placement Verified by: auscultation, end tidal CO2 and chest rise Number of Attempts at Approach: 1 Additional Procedure Information: atraumatic us Nay Connelly MD PROCEDURE/MINOR SURGICAL ORDAaliyah TRAYLOR Final Result * (ABNORMAL) CK (10/19/2024 8:44 AM CDT) [facility] CK 24(L) 26 - 192 U/L 10/19/2024 10:13 AM CDT [facility] Blood Venipuncture / Unknown 10/19/2024 8:44 AM CDT 10/19/2024 9:12 AM CDT us Abhijeet Tran MD CHEMISTRY ORDERABLES F inal Result Performing Organization Address [facility]/ZIP Co de Phone Number [facility] CLIA # [id number] [address] [place] [address] * IMMUNOFIXATION (10/17/2024 4:04 AM CDT) [facility] IMMUNOFIXATION INTERP See Interpretation Below 10/19/2024 3:37 PM CDT [facility] Comment:M1 = IgG kappa INTERPRETED BY: Floresita Julien DO 10/19/2024 3:37 PM CDT [facility] Blood Venipuncture / Unknown 10/17/2024 4:04 AM CDT 10/17/2024 4:19 AM CDT us Cruz Mckinney MD CHEMISTRY ORDERABLES Final Re sult Performing Organization Address City/[facility]/ZIP Co de Phone Number [facility] CLIA # [id number] [id number] [place] [address] * (ABNORMAL) KAPPA/LAMBDA, FREE LIGHT CHAINS (10/17/2024 4:04 AM CDT) KAPPA FREE LIGHT CHAIN 82.7(H) 3.3 - 19.4 mg/L 10/21/2024 7:58 AM CDT [facility] LAMBDA FREE LIGHT CHAIN 147.9(H) 5.7 - 26.3 mg/L 10/21/2024 7:58 AM CDT [facility] KAPPA/LAMBDA LIGHT CHAIN RATIO 0.56 0.26 - 1.65 10/21/2024 7:58 AM CDT [facility] Comment: Free kappa/lambda ratio in serum of normal individuals is 0.26-1.65. Excess production of free kappa or lambda chains can alter this ratio. Monoclonal free light chains are found in serum of patients with multiple myeloma, Waldenstrom's macroglobulinemia, mu-heavy chain disease, primary amyloidosis, light chain deposition disease, monoclonal gammopathy of undetermined significance, and lymphoproliferative disorders. Measurement of free light chain concentration in serum is useful for diagnosis, prognosis, monitoring disease activity and following response to therapy of these disorders. Blood Venipuncture / Unknown 10/17/2024 4:04 AM CDT 10/17/2024 4:19 AM CDT Narrative [facility] - 10/21/2024 7:58 AM CDT Performing Organization Information: Site ID: JACQUIE Name: [facility] Address: [facility] [place] [address] Director: Amrita Talbot MD Performing Organization Information: Site ID: JACQUIE Name: [facility] Address: [facility] [place] [address] Director: Amrita Talbot MD us Cruz Mckinney MD CHEMISTRY ORDERABLES Edited R esult - Final [facility] * (ABNORMAL) IRON, TIBC, AND PERCENT SATURATION (10/17/2024 4:04 AM CDT) IRON 40 37 - 145 ug/dL 10/17/2024 4:58 AM CDT [facility] TIBC 150(L) 250 - 450 ug/dL 10/17/2024 4:58 AM CDT [facility] IRON % SATURATION 27 15 - 60 % 10/17/2024 4:58 AM CDT [facility] Blood Venipuncture / Unknown 10/17/2024 4:04 AM CDT 10/17/2024 4:19 AM CDT us Cruz Mckinney MD CHEMISTRY ORDERABLES Final Re sult [facility] CLIA # [id number] [address] [place] [address] * GRAHAM SCREEN W/REFLEX (10/17/2024 4:04 AM CDT) GRAHAM SCREEN NEGATIVE NEGATIVE 10/21/2024 7:58 AM CDT [facility] Comment: GRAHAM IFA is a first line screen for detecting the presence of up to approximately 150 autoantibodies in various autoimmune diseases. A negative GRAHAM IFA result suggests an GRAHAM-associated autoimmune disease is not present at this time, and does not reflex further. If there is high clinical suspicion for Sjogren's syndrome, testing for anti-SS-A/Ro antibody should be considered. Anti-Joanna-1 antibody should be considered for clinically suspected inflammatory myopathies. AC-0: Negative International Consensus on GRAHAM Patterns (https://doi.org/10.1515/mwei-6490-9936) For additional information, please refer to http://education.[employer]/faq/JMG311 (This link is being provided for informational/ educational purposes only.) Blood Venipuncture / Unknown 10/17/2024 4:04 AM CDT 10/17/2024 4:19 AM CDT Narrative [facility] - 10/21/2024 7:58 AM CDT Performing Organization Information: Site ID: JACQUIE Name: [facility] Address: [address] [place] [address] Director: Amrita Talbot MD us rCuz Mckinney MD CHEMISTRY ORDERABLES Final Re sult [facility] * (ABNORMAL) PROTEIN ELECTROPHORESIS W/REFLEX,SERUM (10/17/2024 4:04 AM CDT) TOTAL PROTEIN 7.0 6.4 - 8.3 g/dL 10/19/2024 3:38 PM CDT [facility] ALBUMIN SPE 3.30(L) 3.50 - 5.20 g/dL 10/19/2024 3:38 PM CDT [facility] ALPHA 1 GLOBULIN SPE 0.34 0.21 - 0.45 g/dL 10/19/2024 3:38 PM CDT [facility] ALPHA 2 GLOBULIN SPE 0.81 0.50 - 1.01 g/dL 10/19/2024 3:38 PM CDT [facility] BETA GLOBULIN 0.47(L) 0.60 - 1.06 g/dL 10/19/2024 3:38 PM CDT [facility] GAMMA GLOBULIN 2.09(H) 0.60 - 1.33 g/dL 10/19/2024 3:38 PM CDT [facility] MONOCLONAL PROTEIN 1 0.37 g/dL 10/19/2024 3:38 PM CDT [facility] SPE INTERP See Interpretation Below 10/19/2024 3:38 PM T [facility] Comment:Monoclonal protein i dentified in gamma region with a concentration of 0.37 g/dL. Immunofixation was reflexed which identified the monoclonal protein as IgG kappa. INTERPRETED BY: Floresita Julien DO 10/19/2024 3:38 PM T [facility] Blood Venipuncture / Unknown 10/17/2024 4:04 AM CDT 10/17/2024 4:19 AM CDT Narrative [facility] - 10/19/2024 3:38 PM CDT Immunofixation ordered at [facility] per policy per pathologist. Cruz Mckinney MD CHEMISTRY ORDERABLES Final Re sult Performing Organization Address [facility]/ZIP Co de Phone Number [facility] CLIA # [id number] [address] [address] * (ABNORMAL) FERRITIN (10/17/2024 4:04 AM CDT) FERRITIN 252.8(H) 13.0 - 150.0 ng/mL 10/17/2024 4:58 AM CDT [facility] Blood Venipuncture / Unknown 10/17/2024 4:04 AM CDT 10/17/2024 4:19 AM CDT Cruz Mckinney MD CHEMISTRY ORDERABLES Final Re sult Performing Organization Address [facility] Co de Phone Number [facility] CLIA # [id number] [address] [address] * VITAMIN B12 AND FOLATE (10/17/2024 4:03 AM CDT) VITAMIN B12 373 211 - 946 pg/mL 10/17/2024 5:13 AM CDT [facility] FOLATE, SERUM 5.8 3.1 - 17.5 ng/mL 10/17/2024 5:13 AM CDT [facility] Blood Venipuncture / Unknown 10/17/2024 4:03 AM CDT 10/17/2024 4:19 AM CDT Cruz Mckinney MD CHEMISTRY ORDERABLES Final Re sult Performing Organization Address [facility] Co de Phone Number [facility] CLIA # [id number] [address] [address] [place] [address] * BLOOD CULTURE (10/16/2024 10:18 AM CDT) Only the most recent of4 resultswithin the time period is included. BLOOD CULTURE No growth 10/21/2024 11:28 AM CDT [facility] Blood (Peripheral) Venipuncture / Unknown 10/16/2024 10:18 AM CDT 10/16/2024 10:29 AM CDT Narrative [facility] - 10/21/2024 11:28 AM CDT Specimen processed with suboptimal blood volume collected. Zari Ivy MD MICROBIOLOGY - GENERA L ORDERABLES Final Result Performing Organization Address [facility] Co de Phone Number [facility] CLIA # [id number] [address] [address] * (ABNORMAL) URINE CULTURE (10/15/2024 1:54 PM CDT) Only the most recent of3 resultswithin the time period is included. CULTURE ENTEROCOCCUS FAECIUM(A) KAREEM MCG/ML 10/19/2024 8:08 AM CDT [facility] Urine (Urine, straight in/out catheter) Collection / Unknown 10/15/2024 1:54 PM CDT 10/15/2024 2:01 PM CDT Narrative Organism Antibiotic Method Susceptibility Enterococcus faecium AMPICILLIN KAREEM MCG/ML >=32 mcg/mL: Resistant Enterococcus faecium VANCOMYCIN KAREEM MCG/ML 1 mcg/mL: Susceptible Enterococcus faecium CIPROFLOXACIN KAREEM MCG/ML >=8 mcg/mL: Resistant Enterococcus faecium LEVOFLOXACIN KAREEM MCG/ML >=8 mcg/mL: Resistant Enterococcus faecium NITROFURANTOIN KAREEM MCG/ML 256 mcg/mL: Resistant Enterococcus faecium LINEZOLID POSADAS-ENGLE Susceptible us Abhijeet Tran MD MICROBIOLOGY - GENERAL ORDERABLES Final Result Performing Organization Address [facility] Co de Phone Number [facility] CLIA # [id number] [address] [address] [place], [place] [address] * (ABNORMAL) HEMOGLOBIN A1C (10/14/2024 9:48 AM CDT) Only the most recent of2 resultswithin the time period is included. Pathologist [facility] HEMOGLOBIN A1C 6.3(H) <=5.6 % 10/15/2024 10:55 AM CDT [facility] EST. AVG GLUCOSE, A1C 134 mg/dL 10/15/2024 10:55 AM CDT [facility] Blood Venipuncture / Unknown 10/14/2024 9:48 AM CDT 10/14/2024 9:54 AM CDT Narrative [facility] - 10/15/2024 10:55 AM CDT HGB A1C INTERPRETATION NORMAL: <5.7% PRE-DIABETES: 5.7 - 6.4% DIABETES: 6.5% OR GREATER us Zari Ivy MD CHEMISTRY ORDERABLES Final Result Performing Organization Address [facility] Co de Phone Number [facility] CLIA # [id number] [address] [address] [place], [place] [address] * (ABNORMAL) BASIC METABOLIC PANEL (10/14/2024 3:38 AM CDT) Only the most recent of3 resultswithin the time period is included. SODIUM 137 136 - 145 mmol/L 10/14/2024 4:16 AM CDT [facility] POTASSIUM 4.6 3.5 - 5.1 mmol/L 10/14/2024 4:16 AM CDT [facility] CHLORIDE 111(H) 98 - 107 mmol/L 10/14/2024 4:16 AM T [facility] CO2 20(L) 22 - 29 mmol/L 10/14/2024 4:16 AM CDT [facility] CALCIUM 8.8 8.8 - 10.2 mg/dL 10/14/2024 4:16 AM T [facility] BUN 32(H) 8 - 23 mg/dL 10/14/2024 4:16 AM T [facility] CREATININE 1.76(H) 0.51 - 0.95 mg/dL 10/14/2024 4:16 AM T [facility] Comment:The GFR result is no t clinically significant on patients <18 or >70 years of age. GLUCOSE 188(H) 74 - 99 mg/dL 10/14/2024 4:16 AM T [facility] GFR 31 mL/min/1. 73 sq meter 10/14/2024 4:16 AM T [facility] Comment:eGFR calculated with 2020 CKD-EPI equation. Vegetarian diet, extremely high or low muscle mass, and may affect results. Cystatin C with Glomerular Filtration Rate is a suitable alternative for these patients. ANION GAP 6(L) 9 - 20 mmol/L 10/14/2024 4:16 AM T [facility] Blood Venipuncture / Unknown 10/14/2024 3:38 AM CDT 10/14/2024 3:44 AM CDT us Anahi Medeiros MD CHEMISTRY ORDERABLES Fi nal Result [facility] CLIA # [id number] [address] [address] [place] [address] * CT ABDOMEN PELVIS WO CONTRAST (10/13/2024 9:23 PM CDT) Anatomical Region Laterality Modality Abdomen Computed Tomogra phy 10/13/2024 9:23 PM CDT Impressions 10/13/2024 9:35 PM CDT IMPRESSION: Please see below. Exam: CT ABDOMEN PELVIS WO CONTRAST Date/Time of Exam: 10/13/2024 9:23 PM Reason For Exam: right flank pain ureteral stent placed a few weeks ago. Diagnosis: See Reason for Exam. Technique: CT of the abdomen and pelvis was performed without the administration of intravenous contrast. Comparison: None. FINDINGS: Evaluation of the vasculature and solid organs are limited without the use of contrast. There are multiple small sub-6 mm nodules in the bilateral lower lobes. (3-46, 3-50). Calcified granuloma in the left lower lobe. No pleural effusion. Small hiatal hernia. Cholecystectomy. Nodular thickening of the adrenal glands. No biliary or pancreatic ductal dilatation. Multiple large right renal stones including a 16 mm stone in the renal collecting system. There is a right ureteral stent extending from the upper pole calyx to the bladder. There is a left ureteral stent extending from renal pelvis to bladder. There appears to be mild bilateral hydronephrosis. The left kidney is mildly atrophic. Vascular calcifications. Mildly prominent retroperitoneal lymph nodes measuring up to 11 mm in short axis (3-1 35). Mildly prominent mesenteric lymph nodes and ryan mesentery. Liver appears mildly enlarged. Small and large bowel are not distended. Retained stool. No evidence of acute appendicitis. There is a poorly defined mesenteric mass in the right lower quadrant measures 27 x 44 mm in size. Adjacent mesenteric nodules in the right lower quadrant which measure up to 19 mm in size (3-2 14). No destructive lytic or sclerotic bone lesions. IMPRESSION: 1. Bilateral ureteral stents with moderate hydronephrosis. There are multiple large right renal stones including a 16 mm stone in the right renal pelvis. 2. Multiple small nodules in the bilateral lower lobes are nonspecific. A single follow-up chest CT can be obtained in 12 months patient is high risk for lung cancer per Fleischner Society guidelines. 3. Mildly enlarged retroperitoneal and mesenteric lymph nodes are nonspecific but could be reactive or malignant. 4. Indeterminate spiculated mesenteric mass in the right lower quadrant. Correlate with external prior imaging. Narrative Procedure Note Kale Balderas MD - 10/13/2024 IMPRESSION: Please see below. Exam: CT ABDOMEN PELVIS WO CONTRAST Date/Time of Exam: 10/13/2024 9:23 PM Reason For Exam: right flank pain ureteral stent placed a few weeks ago. Diagnosis: See Reason for Exam. Technique: CT of the abdomen and pelvis was performed without the administration of intravenous contrast. Comparison: None. FINDINGS: Evaluation of the vasculature and solid organs are limited without the use of contrast. There are multiple small sub-6 mm nodules in the bilateral lower lobes. (3-46, 3-50). Calcified granuloma in the left lower lobe. No pleural effusion. Small hiatal hernia. Cholecystectomy. Nodular thickening of the adrenal glands. No biliary or pancreatic ductal dilatation. Multiple large right renal stones including a 16 mm stone in the renal collecting system. There is a right ureteral stent extending from the upper pole calyx to the bladder. There is a left ureteral stent extending from renal pelvis to bladder. There appears to be mild bilateral hydronephrosis. The left kidney is mildly atrophic. Vascular calcifications. Mildly prominent retroperitoneal lymph nodes measuring up to 11 mm in short axis (3-1 35). Mildly prominent mesenteric lymph nodes and ryan mesentery. Liver appears mildly enlarged. Small and large bowel are not distended. Retained stool. No evidence of acute appendicitis. There is a poorly defined mesenteric mass in the right lower quadrant measures 27 x 44 mm in size. Adjacent mesenteric nodules in the right lower quadrant which measure up to 19 mm in size (3-2 14). No destructive lytic or sclerotic bone lesions. IMPRESSION: 1. Bilateral ureteral stents with moderate hydronephrosis. There are multiple large right renal stones including a 16 mm stone in the right renal pelvis. 2. Multiple small nodules in the bilateral lower lobes are nonspecific. A single follow-up chest CT can be obtained in 12 months patient is high risk for lung cancer per Fleischner Society guidelines. 3. Mildly enlarged retroperitoneal and mesenteric lymph nodes are nonspecific but could be reactive or malignant. 4. Indeterminate spiculated mesenteric mass in the right lower quadrant. Correlate with external prior imaging. us Flex OVALLE CT ORDERABLES Final Result * EXTRA TUBE (URINE BRISCOE) (10/13/2024 4:36 PM CDT) Urine URINE SPECIMEN OBTAINED BY CLEAN CATCH PROCEDURE / Unknown Collection / Unknown 10/13/2024 4:36 PM CDT 10/13/2024 5:08 PM CDT us Flex [facility] URINE ORDERABLES Final Result [facility] CLIA # [id number] [address] [address] [place] [address] * (ABNORMAL) URINALYSIS WITH REFLEX MICROSCOPIC (10/13/2024 4:36 PM CDT) Only the most recent of2 resultswithin the time period is included. COLOR UA Pale Yellow Pale to Dark Yellow 10/13/2024 5:23 PM CDT [facility] CLARITY UA Cloudy(A) Clear 10/13/2024 5:23 PM CDT [facility] SPECIFIC GRAVITY UA 1.015 1.003 - 1.035 10/13/2024 5:23 PM CDT [facility] PH UA 7.5 5.0 - 8.0 10/13/2024 5:23 PM CDT [facility] LEUKOCYTE ESTERASE UA 3+(A) Negative 10/13/2024 5:23 PM CDT [facility] NITRITE UA Negative Negative 10/13/2024 5:23 PM CDT [facility] PROTEIN UA 1+(A) Negative 10/13/2024 5:23 PM CDT [facility] GLUCOSE UA 2+(A) Negative 10/13/2024 5:23 PM CDT [facility] KETONES UA Negative Negative 10/13/2024 5:23 PM CDT [facility] UROBILINOGEN UA <2.0 <2.0 mg/dL 5:23 PM CDT [facility] BILIRUBIN UA Negative Negative 10/13/2024 5:23 PM CDT [facility] BLOOD UA 3+(A) Negative 10/13/2024 5:23 PM CDT [facility] WBC UA >100(A) 0 - 2 /hpf 10/13/2024 5:23 PM CDT [facility] RBC UA >100(A) 0 - 2 /hpf 10/13/2024 5:23 PM CDT [facility] BACTERIA UA Negative Negative /hpf 10/13/2024 5:23 PM CDT [facility] EPITHELIAL CELLS, URINE 0-5 0 - 5 /hpf 10/13/2024 5:23 PM CDT [facility] Urine URINE SPECIMEN OBTAINED BY CLEAN CATCH PROCEDURE / Unknown Collection / Unknown 10/13/2024 4:36 PM CDT 10/13/2024 5:08 PM CDT Flex [facility] URINE ORDERABLES Final Result Performing Organization Address [facility]/ZIP Co de Phone Number [facility] CLIA # [id number] [address] [address] * LIPASE (10/13/2024 4:36 PM CDT) Pathologist [facility] LIPASE 21 13 - 60 U/L 10/13/2024 6:00 PM CDT [facility] Blood Venipuncture / Unknown 10/13/2024 4:36 PM CDT 10/13/2024 5:16 PM CDT Flex [facility] CHEMISTRY ORDERABLES Final Resu lt Performing Organization Address City/[facility]/ZIP Co de Phone Number [facility] CLIA # [id number] [address] [address] [place] [address] * TSH (09/30/2024 9:59 AM CDT) Pathologist [facility] TSH 2.32 0.40 - 4.50 mIU/L [facility] Comment: Test Performed at: [facility] [address] [place] [address] Amrita Talbot MD Blood 09/30/2024 9:59 AM CDT 10/01/2024 7:38 AM CDT us Seema Damon AUTHORIZATION COORDINATOR CHEMISTRY ORDERABLES Fin al Result [facility] [phone] [facility] [address] [place] [address] * (ABNORMAL) LIPID PANEL (09/24/2024 5:53 AM CDT) Pathologist [facility] CHOLESTEROL 103 <200 mg/dL 09/24/2024 7:33 AM CDT [facility] TRIGLYCERIDE 118 <150 mg/dL 09/24/2024 7:33 AM CDT [facility] HDL 34(L) 40 - 59 mg/dL 09/24/2024 7:33 AM CDT [facility] LDL CALCULATED 45 <100 mg/dL 09/24/2024 7:33 AM CDT [facility] NON-HDL CHOLESTEROL 69 <130 mg/dL 09/24/2024 7:33 AM CDT [facility] Blood Venipuncture / Unknown 09/24/2024 5:53 AM CDT 09/24/2024 6:55 AM CDT Narrative [facility] - 09/24/2024 7:33 AM CDT TOTAL CHOLESTEROL mg/dL Desirable <200 Borderline high 200-239 High >=240 TRIGLYCERIDES mg/dL Normal <150 Borderline high 150-199 High 200-499 Very high >=500 HDL CHOLESTEROL mg/dL Low <40 Normal 40-59 Desirable >=60 NON HDL CHOLESTEROL mg/dL Optimal <130 Near Optimal 130-159 Borderline High 160-189 Very High >=190 CALCULATED LDL mg/dL LDL <70, OPTIMAL if have Atherosclerotic cardiovascular disease (ASCVD) or intermediate or higher (>7.5%) 10 year risk of ASCVD including most adults with diabetes. LDL <100, Optimal in adult patients with low (<7.5%) 10 year ASCVD risk LDL 100-160, Suboptimal LDL >160, High LDL >190, Very high LDL calculated using the Friedewald equation. ATPIII Guidelines Reference Ranges for Lipid Panels (NCEP/AMA) . us Omid Carroll MD CHEMISTRY ORDERABLES Final R esult [facility] # [id number] [address] [facility] [place] [address] * MRI BRAIN WO CONTRAST (09/23/2024 10:54 PM CDT) Anatomical Region Laterality Modality Head Magnetic Resonan ce 09/23/2024 10:5 4 PM CDT Impressions 09/24/2024 4:08 AM CDT IMPRESSION: Please see below. Exam: MRI BRAIN WO CONTRAST Date/Time of Exam: 09/23/2024 10:54 PM Reason For Exam: stroke-like symptoms. Diagnosis: See Reason for Exam. Technique: MRI of the brain was performed without the administration of intravenous contrast. 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 Mild associated hemosiderin staining. No acute infarction, hemorrhage or extra-axial collection. Mild sequela of small vessel ischemic disease. No hydrocephalus. The basal cisterns are patent. No suspicious osseous abnormality. The paranasal sinuses and mastoids are clear. The orbits are intact. IMPRESSION: No acute intracranial abnormality. 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 Narrative Procedure Note Sherman Andrade DO - 09/24/2024 IMPRESSION: Please see below. Exam: MRI BRAIN WO CONTRAST Date/Time of Exam: 09/23/2024 10:54 PM Reason For Exam: stroke-like symptoms. Diagnosis: See Reason for Exam. Technique: MRI of the brain was performed without the administration of intravenous contrast. 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 Mild associated hemosiderin staining. No acute infarction, hemorrhage or extra-axial collection. Mild sequela of small vessel ischemic disease. No hydrocephalus. The basal cisterns are patent. No suspicious osseous abnormality. The paranasal sinuses and mastoids are clear. The orbits are intact. IMPRESSION: No acute intracranial abnormality. 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 Omid Carroll MD MR ORDERABLES Final Result * MO ANES INSERT SUPRAGLOTTIC AIRWAY (09/23/2024 5:06 PM CDT) Narrative Guevara Wang CRNA - 09/23/2024 5:06 PM CDT Guevara Wang CRNA 09/23/2024 5:14 PM Airway Date/Time: 09/23/2024 5:06 PM Location: OR Plan: routine intubation Patient Identity Confirmed by: Verbally with patient and armband Staffing Performed: HIGHWAY WORKER/CAA Authorized by: Khang Arredondo MD Performed by: Guevara Wang CRNA Indications and Patient Condition: Indications for Airway Management: Anesthesia Sedation Level: general anesthesia Preoxygenated: yes Mask Difficulty Assessment: 0 - not attempted Plan to extubate at end of case: Yes Final Airway Details: Final Airway Type: Supraglottic airway Final Supraglottic Airway: LMA LMA size: 4 Tube secured with: Tape Placement Verified by: auscultation, end tidal CO2 and chest rise Number of Attempts at Approach: 1 Khang Arredondo MD PROCEDURE/MINOR SURGICAL ORDE RABLES Final Result * (ABNORMAL) HEMOGLOBIN AND HEMATOCRIT (09/23/2024 12:17 PM CDT) HEMOGLOBIN 9.2(L) 12.0 - 16.0 g/dL 09/23/2024 1:18 PM CDT [facility] Mirego [facility] HEMATOCRIT 30.7(L) 36.0 - 46.0 % 09/23/2024 1:18 PM CDT [facility] Blood Venipuncture / Unknown 09/23/2024 12:17 PM CDT 09/23/2024 1:11 PM CDT Omid Carroll MD HEMATOLOGY ORDERABLES Final Result [facility] Mirego [facility] CLIA # [id number] [address] [place] [address] * EKG 12-LEAD (09/23/2024 6:20 AM CDT) 09/23/2024 6:20 AM CDT Narrative INTERFACE SYSTEM - 09/23/2024 2:13 [place] [address] Test Date: 2024-09-23 Pat Name: MACEY BECKMAN Department: 12 Room: [address] [place] [address] Gender: Female Planer Feeder: [id number] : 1955 Requested By: Order Number: [id number] Reading : Solomon Lira Measurements Intervals [place] Rate: 63 P: 0 MO: 0 QRS: -50 QRSD: 128 T: 15 QT: 462 QTc: 472 Interpretive Statements Wide QRS rhythm with occasional premature ventricular complexes Left axis deviation Right bundle branch block Inferior infarct, age undetermined Abnormal ECG Electronically Signed On 09-23-2024 14:13:18 CDT by Solomon Lira Procedure Note Solomon Lira MD - 09/23/[address] [address] Test Date: 2024-09-23 Pat Name: MACEY BECKMAN Department: 12 Room: [address] [place] [address] Gender: Female Planer Feeder: [id number] : 1955 Requested By: Order Number: [id number] Zaki YOUNG: Solomon Lira Measurements Intervals [place] Rate: 63 P: 0 MO: 0 QRS: -50 QRSD: 128 T: 15 QT: 462 QTc: 472 Interpretive Statements Wide QRS rhythm with occasional premature ventricular complexes Left axis deviation Right bundle branch block Inferior infarct, age undetermined Abnormal ECG Electronically Signed On 09-23-2024 14:13:18 CDT by Solomon Lira us Darrel Goldsmith MD ECG ORDERABLES Final Result INTERFACE SYSTEM Refer to clinic/hospital department * PHOSPHORUS (09/23/2024 5:56 AM CDT) PHOSPHORUS 3.3 2.5 - 4.5 mg/dL 09/23/2024 6:48 AM CDT [facility] Blood Venipuncture / Unknown 09/23/2024 5:56 AM CDT 09/23/2024 6:16 AM CDT Bret Loredo DO CHEMISTRY ORDERABLES Final R esult Performing Organization Address City/[facility] Co de Phone Number [facility] CLIA # [id number] [address] [address] [place] [address] * MAGNESIUM LEVEL (09/23/2024 5:56 AM CDT) MAGNESIUM 1.9 1.6 - 2.4 mg/dL 09/23/2024 6:48 AM CDT [facility] Blood Venipuncture / Unknown 09/23/2024 5:56 AM CDT 09/23/2024 6:16 AM CDT Bret Loredo DO CHEMISTRY ORDERABLES Final R [facility] Performing Organization Address [facility] Co de Phone Number [facility] CLIA # [id number] [address] [place] [phone] from Last [address] [place] [place] [address] [employer] Medicare Part D Advance Directives For more information, please contact: [phone] * NO CPR (In Event of Cardiopulmonary Arrest) (Latest Code Status on File) Date Activated Date Inactivated Comments 10/19/2024 2:12 PM 10/21/2024 10:40 PM Question Answer Comments Mechanical Ventilation (for respiratory distress) - Invasive (i.e. intubation): Yes Mechanical Ventilation (for respiratory distress) - Non-Invasive (i.e. BiPAP, CPAP): Yes * Full Code Date Activated Date Inactivated Comments 10/14/2024 12:08 AM 10/19/2024 2:12 PM * Full Code Date Activated Date Inactivated Comments 09/23/2024 5:15 PM 09/25/2024 5:42 PM * Full Code Date Activated Date Inactivated Comments 09/23/2024 6:28 AM 09/23/2024 5:15 PM Care Teams Scouring Train Operator Chief Relationship Specialty Start Date End Date Jimmy Caballero DO [address] [place] [phone] PCP - General Family Practice 09/30/24
--- OUTSIDE RECORDS SUMMARY | 2024-11-04 07:42 | XMS_ITS | Encounter Summary ---
Author Organization [facility] Address [address] [place] [address] Care Team Providers Care Business Area Director Name Role Phone Unavailable Primary Care Provider Unavailabl e Encounter Details Date Type Department Care Team (Latest Contact Info) Description 12/23/2000 Outpatient Historical [facility] Chaitanya Hernandez Jr., MD [address] [place] [phone] Type II or unspecified type diabetes mellitus without mention of complication, not stated as uncontrolled (Primary Dx); Unspecified hypothyroidism; Need for prophylactic hormone replacement therapy (postmenopausal) Social History Tobacco Use Types Packs/Day Years Used Date Smoking Tobacco: Never Assessed Comments Unknown Sex and Gender Information Value Date Recorded Sex Assigned at Not on file Legal Sex Female 4:00 AM TRANSVERSE 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
--- OUTSIDE RECORDS SUMMARY | 2024-11-04 07:42 | XMS_ITS | Encounter Summary ---
Author Organization [facility] Address [address] [place] [address] Care Team Providers Care Low Voltage Electrician Name Role Phone Federico Jimmy Glasgow Primary Care Provider [phone] Reason for Visit * Reason Comments Clinical Consult Before Scheduling Encounter Details Date Type Department Care Team ([facility] st Contact Info) Description 10/23/2024 Telephone [facility] Family Medicine- [address] [phone] Seema Damon, ELECTRIC MOTOR ANALYST [address] [place] [address], [place] [address] Clinical Consult Before Scheduling Social History Tobacco Use Types Packs/Day Years Used Date Smoking Tobacco: Former Cigarettes Q uit: 1980 Alcohol Use Standard Drinks/Week Comments Never 0 (1 standard drink = 0.6 oz pur e alcohol) Comments No Sex and Gender Information Value Date Recorded Sex Assigned at Not on file Legal Sex Female 10:44 AM PECAN GROWER Gender Identity Not on file Sexual Orientation Not on file documented as of this encounter Miscellaneous Notes * Telephone Encounter - Pooja Soto - 10/23/2024 2:55 PM CDT Copied from [facility] #[id number]. Topic: Established Patient Care >> Oct 23, 2024 2:53 PM Pooja Santiago wrote: Has this patient seen any provider (current or former) at the requested clinic in the past? Yes, Select the appropriate option in Est / Follow Up Caller Name: Nery, daughter, on PHI Callback Number: [phone] Caller is requesting to schedule: Other Patient has a video visit at 2:30, received a message PCP is running late at 2:35. Do they still need to wait for her to come on. Please let them know Call Notes (Not Required): Patient Access Instructions 1. Refer to [email or web address] for scheduling instructions 2. Using the Schedule button in Primary Information section of CRM to Navigate to Book It 3. Appointment Notes: follow Consumer View instructions 4. Attempt to schedule an appointment using visit type and the appropriate provider as listed in Consumer View. 5. Ensure appointment is linked in attachment section below, if not link the appointment. 6. Select Resolve Reason and Click Close CRM. documented in this encounter Plan of Treatment Upcoming Encounters Date Type Department Care Team (Late st Contact Info) Description 11/06/2024 12:00 PM CDT Appointment [facility] [address] [facility] [address] [place] [phone] 11/06/2024 1:00 PM CDT Office Visit [facility] [place] [address] [place] [address] [place] [address] Cruz Mckinney MD [address] [phone] 12/18/2024 3:30 PM CDT Office Visit [facility] Family Medicine- [address] [place] [address] Seema Damon NP [address] [place] [address], [place] [address] documented as of this encounter Visit Diagnoses Not on filedocumented in this encounter Additional Health Concerns Assessment Noted Time PHQ-9 Depression Total Score: 1 10/01/19 25 8:59 AM CDT documented as of this encounter Care Teams Low Voltage Electrician Relationship Specialty Start Date End Date Jimmy Caballero DO [address] [place] [phone] PCP - General Family Practice 09/30/24 documented as of this encounter
== END 2024-11-01 17:05 | disposition home or self-care (01) ==
PROVIDERS: Emergency Provider Emergency Medicine
DX: R10.30 Lower abdominal pain, unspecified (principal); I12.9 Hypertensive chronic kidney disease with stage 1 through stage 4 chronic kidney disease, or unspecified chronic kidney disease; N18.9 Chronic kidney disease, unspecified; Z87.891 Personal history of nicotine dependence; Z79.899 Other long term (current) drug therapy; Z79.890 Hormone replacement therapy; Z88.2 Allergy status to sulfonamides; Z88.8 Allergy status to other drugs, medicaments and biological substances; Z91.040 Latex allergy status
CPT/HCPCS: 36415; 74176; 80053; 85025; 99284; J9999